=== PATIENT | male | born 1960 | race Caucasian/White ===

== ENCOUNTER 2017-05-21 19:48 | Observation (INO) | payer MEDICARE, BC, SELFPAY | END 2017-05-23 16:20 | disposition home or self-care (01) | PROVIDERS: Admitting Provider Family Medicine; Emergency Provider Emergency Medicine; Family Provider Nurse Practitioner Family; Visit Provider Emergency Medicine | DX: I25.110 Atherosclerotic heart disease of native coronary artery with unstable angina pectoris (principal); Z72.0 Tobacco use; Z95.5 Presence of coronary angioplasty implant and graft; E11.9 Type 2 diabetes mellitus without complications; Z79.4 Long term (current) use of insulin; I69.398 Other sequelae of cerebral infarction | CPT/HCPCS: 36415; 71010; 80053; 82962; 83880; 84484; 85025; 92928; 93005; 93041; 93458; 94760; 96374; 99152; 99285; C1725; C1769; C1876; G0378; J1644; Q9967 ==

== ENCOUNTER 2017-05-24 10:06 | Emergency (ER) | payer MEDICARE, BC, SELFPAY | END 2017-05-24 13:39 | disposition home or self-care (01) | PROVIDERS: Emergency Provider Emergency Medicine; Family Provider Emergency Medicine; Visit Provider Emergency Medicine | DX: I20.8 Other forms of angina pectoris (principal); I10 Essential (primary) hypertension; Z86.79 Personal history of other diseases of the circulatory system; E11.9 Type 2 diabetes mellitus without complications; Z79.4 Long term (current) use of insulin; Z79.82 Long term (current) use of aspirin; Z79.51 Long term (current) use of inhaled steroids; Z79.899 Other long term (current) drug therapy | CPT/HCPCS: 36415; 71020; 80053; 82550; 82553; 84484; 85025; 93005; 99284 ==

== ENCOUNTER 2017-06-18 08:10 | Observation (INO) | payer MEDICARE, BC, MEDICAID, SELFPAY ==
[2017-06-18] VITALS (21 sets, daily range): BP systolic 93–144; BP diastolic 50–80; PULSE 53–82; RESP 16–18; TEMP 36.4–36.8; O2SAT 93–99; BMI 32.3; BMI 33.6
--- NOTE | 2017-06-18 | IR_ITS ---
CARDIAC CATHETERIZATION DATE OF CATHETERIZATION:06/18/2017 3:50 PM PROCEDURES: 1. Left heart catheterization 2. Left ventriculogram 3. Selective coronary angiogram INDICATION FOR TEST: 1. Known coronary artery disease 2. Recent multivessel stenting 3. Unstable angina Informed consent was obtained prior to the procedure. COMPLICATIONS: None ESTIMATED BLOOD LOSS: Less than 10 ml. TECHNIQUE: One percent lidocaine used to anesthetize the right anterior aspect of the wrist. The right radial artery was accessed via the Seldinger technique. A 6 [place] sheath was placed in the right radial artery. 2.5 mg of verapamil, 800 mcg of nitroglycerin and 5000 U Heparin were given through the arterial sheath. The trap catheter, a JL 3 and ultimately and AL 0.75 guide catheter were also used to perform left heart catheterization left ventriculogram and selective coronary angiogram. At the end of the procedure the patient was transferred to the post-op holding area in stable condition for arterial sheath removal. ANGIOGRAPHIC RESULTS: 1. The left main artery normal 2. The left anterior descending artery has proximal 30% stenoses with additional 40% stenosis proximal to the mid LAD stent. The mid LAD stent has 40-50% in-stent restenosis. Distal to the stent the vessel is 2.25 mm in diameter and has a 60-70% stenosis followed by additional 70-80 and even 90% stenoses as the LAD wraps the apex. The entire LAD system is less than 2 mm distal to the mid 60-70% stenosis 3. The circumflex artery is a dominant vessel and is normal proximally and at mid vessel. The large first obtuse marginal artery has 40% proximal stenoses while the second obtuse marginal artery has 30% stenoses 4. The right coronary artery is a nondominant vessel and has proximal 30% stenoses with mid vessel 20% stenoses and distal stents which are all widely patent with excellent distal and proximal transitioning and no significant angiographic in-stent restenosis 5. The MOTA ventriculogram reveals slightly hyperdynamic at 75% 6. The left ventricular end-diastolic pressure moderately elevated at 20 mmHg IMPRESSION: 1. Moderate to severe disease in the mid and distal LAD 2. Mild nonflow limiting disease in the dominant circumflex artery 3. Mild nonflow limiting disease in the right coronary artery 4. Slightly hyperdynamic ejection fraction 5. Moderately elevated LVEDP consistent with diastolic dysfunction PLAN: 1. I strongly in current medical management. Nothing good will happen with revascularizing the mid and distal LAD. This vessel is small and caliber and has severe stenoses distally. Trying to revascularize this vessel would likely cause distal tearing and dissection of the vessel with poor runoff and could alternately sacrificed the entire LAD system. 2. Patient would benefit from negative inotropes such as verapamil or diltiazem 3. Diuretics would also benefit patient by decreasing EDP which would improve endothelial microvascular blood flow and would ultimately decrease angina 4. Maximize antianginal medications with Ranexa and isosorbide mononitrate combined with beta blockers
--- NOTE | 2017-06-18 08:19 | XR_ITS ---
XR chest portable HISTORY: ITS.REASON: chest pain ORDERING PHYSICIAN: Allison Herrera MD PATIENT AGE: 57 years COMPARISON: 05/24/2017 FINDINGS: The cardiomediastinal silhouette and pulmonary vascularity are within normal limits. The lungs are clear without infiltrates, suspicious nodules, or pleural effusions. No acute bony abnormalities. IMPRESSION: Negative chest, no acute finding
--- NOTE | 2017-06-18 08:37 | HMH.EDGENADL ---
ED Disposition Clinical Impression: Chest pain, CAD (coronary artery disease), Diabetes, Non compliance with medical treatment Disposition: Still a Patient Condition on Discharge: Fair Referrals: Junior Alas MD [Primary Care Provider] - - Critical Care Critical Care Time: No Attestation: On 06/18/17, the high probability of a clinically significant, sudden or life threatening deterioration of the following system(s) required my full and direct attention, intervention and personal management. The time I documented below is in addition to time spent performing reported procedures but includes the following listed in this critical care notation. Medical Decision Making - Medical Records Medical records reviewed: Yes: I reviewed the patient's medical records. Vital Signs: 06/18/17 08:11 Temperature 98.2 F Temperature Source Oral Pulse Rate [Right Brachial] 76 Respiratory Rate 16 Blood Pressure [Right Arm] 142/78 Blood Pressure Mean [Right Arm] 99 Blood Pressure Source [Right Arm] Automatic Cuff Blood Pressure Position [Right Arm] Supine 02 Sat by Pulse Oximetry 97 Oxygen Delivery Method Room Air - Lab Data Lab Results 06/18/17 08:20: WBC 7.8, RBC 4.50 L, Hgb 12.9 L, Hct 38.6 L, MCV 85.9, MCH 28.8, MCHC 33.5, RDW 15.1, Plt Count 150, MPV 9.6, Neut % (Auto) 62.1, Lymph % (Auto) 28.1, [place] % (Auto) 7.9, Eos % (Auto) 1.5, Baso % (Auto) 0.3, Neut # (Auto) 4.8, Lymph # (Auto) 2.2, [place] # (Auto) 0.6, Eos # (Auto) 0.1, Baso # (Auto) 0.0 06/18/17 08:20: Sodium 135 L, Potassium 4.0, Chloride 101, Carbon Dioxide 24, Anion Gap 14.0, BUN 14, Creatinine 0.94, Estimated Creat Clear 122, Estimated GFR 82, Est GFR ( Amer) 99, Glucose 113 H, Calcium 8.7, Total Bilirubin 1.2 H, AST 30, ALT 31, Alkaline Phosphatase 74, Total Creatine Kinase 115, CK-MB (CK-2) 1.5, CK-MB (CK-2) Rel Index 1.3, Troponin I < 0.02, Total Protein 7.7, Albumin 3.5, Globulin 4.2 H, Albumin/Globulin Ratio 0.8 L Result diagrams: 06/18/17 08:20 06/18/17 08:20 Orders (Tests/Meds): ED MEDICATIONS Discontinued Medications Generic Name Dose Route Start Last Admin Trade Name Dianna PRN Reason Stop Dose Admin Sodium Chloride 1,000 mls @ 999 mls/hr 06/18/17 08:30 06/18/17 08:30 Sod Chloride 0.9% 1000ml Bag IV 06/18/17 09:30 999 mls/hr .Q1H1M MED Administration Nitroglycerin 0.5 gm 06/18/17 08:28 06/18/17 08:30 Nitroglycerin 1 Inch Oint Udp TD 06/18/17 08:29 0.5 gm ONCE ONE Administration ORDERS Category Date Time Status Chest XR -- portable [XR chest portable] Stat Exams 06/18/17 08:19 Taken B-Type Natriuretic Peptide Stat Lab 06/18/17 09:27 Ordered D-Dimer Stat Lab 06/18/17 09:27 Ordered - ECG Data Tracing #1 Normal sinus rhythm 68/min no acute findings. ECG initial impression date: 06/18/17 - Russell Inquiry Pt receiving controlled substance: No Russell was queried for this patient: No Medical Decision Making Narrative: I called Dr Alonso who sent his PA for evalution. Physician Practice Administrator will repat labs in 3 hours form the initial one. I called Dr Garland who accepted the patient for admission. General Adult HPI - General Chief complaint: PAIN Stated complaint: chest pain Mode of Arrival: EMS Limitations: No Limitations Description of Symptoms (Recalled from ER Triage Doc. by RN): chest pain - History of Present Illness HPI narrative: 57 years old white male resident of [facility], he is a poor historian. He is diabetic with coronary artery disease with most recent intervention 2-3 weeks ago. The patient's reports chest pain on the left side sharp/burning rated as 10 with no radiation, there is no precipitating factor. He did not take his medication this morning. He was brought by EMS in a hemodynamically stable condition. Onset (ago): minute(s) (20 minutes.) Severity scale (1-10): 10 Quality: burning, sharp Consistency: constant Relieving factors:
--- NOTE | 2017-06-18 08:40 | ED_ITS ---
ED Disposition Clinical Impression: Chest pain, CAD (coronary artery disease), Diabetes, Non compliance with medical treatment Disposition: Still a Patient Condition on Discharge: Fair Referrals: Junior Alas MD [Primary Care Provider] - - Critical Care Critical Care Time: No Attestation: On 06/18/17, the high probability of a clinically significant, sudden or life threatening deterioration of the following system(s) required my full and direct attention, intervention and personal management. The time I documented below is in addition to time spent performing reported procedures but includes the following listed in this critical care notation. Medical Decision Making - Medical Records Medical records reviewed: Yes: I reviewed the patient's medical records. Vital Signs: 06/18/17 08:11 Temperature 98.2 F Temperature Source Oral Pulse Rate [Right Brachial] 76 Respiratory Rate 16 Blood Pressure [Right Arm] 142/78 Blood Pressure Mean [Right Arm] 99 Blood Pressure Source [Right Arm] Automatic Cuff Blood Pressure Position [Right Arm] Supine 02 Sat by Pulse Oximetry 97 Oxygen Delivery Method Room Air - Lab Data Lab Results 06/18/17 08:20: WBC 7.8, RBC 4.50 L, Hgb 12.9 L, Hct 38.6 L, MCV 85.9, MCH 28.8 , MCHC 33.5, RDW 15.1, Plt Count 150, MPV 9.6, Neut % (Auto) 62.1, Lymph % (Auto ) 28.1, [place] % (Auto) 7.9, Eos % (Auto) 1.5, Baso % (Auto) 0.3, Neut # (Auto) 4.8, Lymph # (Auto) 2.2, [place] # (Auto) 0.6, Eos # (Auto) 0.1, Baso # (Auto) 0.0 06/18/17 08:20: Sodium 135 L, Potassium 4.0, Chloride 101, Carbon Dioxide 24, Anion Gap 14.0, BUN 14, Creatinine 0.94, Estimated Creat Clear 122, Estimated GFR 82, Est GFR ( Amer) 99, Glucose 113 H, Calcium 8.7, Total Bilirubin 1.2 H, AST 30, ALT 31, Alkaline Phosphatase 74, Total Creatine Kinase 115, CK- MB (CK-2) 1.5, CK-MB (CK-2) Rel Index 1.3, Troponin I < 0.02, Total Protein 7.7 , Albumin 3.5, Globulin 4.2 H, Albumin/Globulin Ratio 0.8 L Result diagrams: 06/18/17 08:20 06/18/17 08:20 Orders (Tests/Meds): ED MEDICATIONS Discontinued Medications Generic Name Dose Route Start Last Admin Trade Name Roddyq PRN Reason Stop Dose Admin Sodium Chloride 1,000 mls @ 999 mls/hr 06/18/17 08:30 06/18/17 08:30 Sod Chloride 0.9% 1000ml Bag IV 06/18/17 09:30 999 mls/hr .Q1H1M MED Administration Nitroglycerin 0.5 gm 06/18/17 08:28 06/18/17 08:30 Nitroglycerin 1 Inch Oint Udp TD 06/18/17 08:29 0.5 gm ONCE ONE Administration ORDERS Category Date Time Status Chest XR -- portable [XR chest portable] Stat Exams 06/18/17 08:19 Taken B-Type Natriuretic Peptide Stat Lab 06/18/17 09:27 Ordered D-Dimer Stat Lab 06/18/17 09:27 Ordered - ECG Data Tracing #1 Normal sinus rhythm 68/min no acute findings. ECG initial impression date: 06/18/17 - Russell Inquiry Pt receiving controlled substance: No Russell was queried for this patient: No Medical Decision Making Narrative: I called Dr Alonso who sent his PA for evalution. [employer] will repat labs in 3 hours form the initial one. I called Dr Garland who accepted the patient for admission. General Adult HPI - General Chief complaint: PAIN Stated complaint: chest pain Mode of Arrival: EMS Limitations: No Limitations Description of Symptom
[2017-06-18 08:55] LABS: Basophils % 0.3 % (0.1-2.0); Eosinophils # 0.1 K/mm3 (0.0-0.4); Eosinophils % 1.5 % (0.1-12.0); Hematocrit 38.6 % (42.0-52.0); Hemoglobin 12.9 g/dL (14.1-18.0); Lymphocytes # 2.2 K/mm3 (0.7-4.5); Lymphocytes % 28.1 K/mm3 (10-50); Mean Corpuscular HGB Conc 33.5 g/dL (31.8-35.4); Mean Corpuscular Hemoglobin 28.8 pg (27.0-31.2); Mean Corpuscular Volume 85.9 fl (80-94); Mean Platelet Volume 9.6 fl (7.4-10.4); Monocytes # 0.6 K/mm3 (0.1-1.0); Monocytes % 7.9 % (1.7-9.3); Neutrophils # 4.8 K/mm3 (1.8-7.8); Neutrophils % 62.1 % (37.0-80.0); Platelet Count 150 K/mm3 (142-424); Red Cell Distribution Width 15.1 % (11.5-17.5); White Blood Count 7.8 K/mm3 (4.8-10.8)
[2017-06-18 09:18] LABS: Alanine Aminotransferase 31 U/L (12-78); Albumin Level 3.5 gm/dL (3.4-5.0); Albumin/Globulin Ratio 0.8 (1.1-1.8); Alkaline Phosphatase 74 U/L (46-116); Aspartate Amino Transferase 30 U/L (15-37); Bilirubin,Total 1.2 mg/dL (0.2-1.0); Blood Urea Nitrogen 14 mg/dL (7-18); CKMB Relative Index 1.3 U/L (0-4.0); Calcium 8.7 mg/dL (8.5-10.1); Carbon Dioxide 24 mmol/L (21.0-32.0); Chloride 101 mmol/L (98-107); Creatine Kinase 115 U/L (39-308); Creatine Kinase MB 1.5 mg/ml (0.0-3.6); Creatinine Clearance Estimated 122 mL/min (0-300); Creatinine,Serum 0.94 mg/dL (0.70-1.30); Estimated Glomerular Filt Rate 82 ml/min (>60); GFR (African American) 99 ML/MIN (>60); Globulin 4.2 gm/dl (1.3-3.2); Glucose 113 mg/dL (74-106); Sodium 135 mmol/L (136-145); Total Protein,Serum 7.7 gm/dL (6.4-8.2); Troponin I < 0.02 ng/ml (0.00-0.06)
[2017-06-18 10:14] LABS: D-Dimer 262 (0-400)
--- NOTE | 2017-06-18 10:15 | HMH.CARDCON2 ---
History of Present Illness Consult date: 06/18/17 Requesting physician: Junior Alas Consult reason: chest pain Chief complaint: chest pain History of present illness: 57-year-old white male seen in the emergency department for recurrent episodes of chest pain initially with activity and now at rest. Vision is a very poor historian and provides little information regarding medications and medical history. He is a diabetic. Patient recently underwent cardiac catheterization in April for which multiple stents were placed in his circumflex and RCA arteries residual LAD disease for which medical therapy recommended due to the size of the vessel and complexity of the disease. Patient continues to complain of chest pain despite beta-drea therapy, dual antiplatelet therapy, Ranexa therapy, Imdur and Norvasc medications. Initial troponin in the emergency department is normal with EKG showing no acute ST segment changes. Cardiology consulted for evaluation recommendation. Review of Systems - Constitutional Reports lack of energy - *Cardiovascular Reports chest pain, Reports chest pain at rest, Reports chest pain with activity - *Respiratory Reports shortness of breath with activity [facility] History Medical History: Reports:: Coronary Artery Disease, Cerebrovascular Accident, Diabetes Mellitus Type 2, Hyperlipidemia, Hypertension, Myocardial Infarction, Seizures Other Surgeries: Yes: Other (LHC-stents) Amputation: Yes (Left toe) - *Social History Educational Level: Completed High School Smoking Status: Unknown if ever smoked Alcohol Intake: never Alcohol Intake Frequency:: other - Psychiatric History Expresses thoughts of harming self/others: None Suicide Plan Description: No Plan *Family Hx:: Unable to obtain Meds Home Medications Medication Instructions Recorded Confirmed Type amitriptyline 10 mg tablet 10 mg PO ONCE 05/28/17 06/18/17 History aspirin 81 mg tablet,delayed 81 mg PO QDAY 05/28/17 06/18/17 History release atorvastatin 80 mg tablet 80 mg PO QDAY 05/28/17 06/18/17 History carvedilol 3.125 mg tablet 3.125 mg PO BID 05/28/17 06/18/17 History citalopram 20 mg tablet 20 mg PO QDAY 05/28/17 06/18/17 History diclofenac sodium 75 mg 75 mg PO BID PRN 05/28/17 06/18/17 History tablet,delayed release insulin aspar prt-insulin aspart 40 unit SUB-Q BID ml 05/28/17 06/18/17 History 100 unit/mL (70-30) subcutaneous soln nitroglycerin 0.4 mg sublingual 0.4 mg SUBLINGUAL Q5M PRN 05/28/17 06/18/17 History tablet omega-3 fatty acids 1,000 mg 1,000 mg PO BID cap 05/28/17 06/18/17 History capsule ticagrelor 90 mg tablet 90 mg PO BID 05/28/17 06/18/17 History ranolazine ER 1,000 mg 1,000 mg PO BID tab 06/17/17 06/18/17 History tablet,extended release,12 hr Amlodipine Besylate [Norvasc 5mg 5 mg PO QDAY 06/18/17 06/18/17 History tablet] Lisinopril [Lisinopril 40mg Tablet] 40 mg PO QDAY 06/18/17 06/18/17 History Allergies Allergy/AdvReac Type Severity Reaction Status Date / Time morphine [MORPHINE] Allergy Severe I-ITCHING Verified 06/18/17 08:47 Influenza Virus Vaccines Allergy Intermediate I-HIVES Verified 06/18/17 08:47 Exam Vital signs and Labs for Last 24 Hours: Temp Pulse Resp BP Pulse Ox 98.2 F 76 16 142/78 97 06/18/17 08:11 06/18/17 08:11 06/18/17 08:11 06/18/17 08:11 06/18/17 08:11 - *Routine Neck Exam Absent: JVD, carotid bruit - *Routine Respiratory Exam Present: CTA bilaterally - *Routine Cardiovascular Exam Present: RRR. Absent: murmur, gallop - *Routine Extremities Exam Absent: edema - *Routine Neurological Exam Present: alert, moving all extremities Results 06/18/17 08:20 06/19/17 06:10 EKG interpretations - EKG EKG results cardiology: sinus rhythm, no acute changes Assessment and Plan (1) Chest pain Current visit: Yes Status: Acute Category: Medical Code(s): R07.9 - Chest pain, unspecified (2) CAD
--- NOTE | 2017-06-18 10:19 | P.CONS_ITS ---
History of Present Illness Consult date: 06/18/17 Requesting physician: Junior Alas Consult reason: chest pain Chief complaint: chest pain History of present illness: 57-year-old white male seen in the emergency department for recurrent episodes of chest pain initially with activity and now at rest. Vision is a very poor historian and provides little information regarding medications and medical history. He is a diabetic. Patient recently underwent cardiac catheterization in April for which multiple stents were placed in his circumflex and RCA arteries residual LAD disease for which medical therapy recommended due to the size of the vessel and complexity of the disease. Patient continues to complain of chest pain despite beta-drea therapy, dual antiplatelet therapy, Ranexa therapy, Imdur and Norvasc medications. Initial troponin in the emergency department is normal with EKG showing no acute ST segment changes. Cardiology consulted for evaluation recommendation. Review of Systems - Constitutional Reports lack of energy - *Cardiovascular Reports chest pain, Reports chest pain at rest, Reports chest pain with activity - *Respiratory Reports shortness of breath with activity [facility] History Medical History: Reports:: Coronary Artery Disease, Cerebrovascular Accident, Diabetes Mellitus Type 2, Hyperlipidemia, Hypertension, Myocardial Infarction, Seizures Other Surgeries: Yes: Other (LHC-stents) Amputation: Yes (Left toe) - *Social History Educational Level: Completed High School Smoking Status: Unknown if ever smoked Alcohol Intake: never Alcohol Intake Frequency:: other - Psychiatric History Expresses thoughts of harming self/others: None Suicide Plan Description: No Plan *Family Hx:: Unable to obtain Meds Home Medications Medication Instructions Recorded Confirmed Type amitriptyline 10 mg tablet 10 mg PO ONCE 05/28/17 06/18/17 History aspirin 81 mg tablet,delayed 81 mg PO QDAY 05/28/17 06/18/17 History release atorvastatin 80 mg tablet 80 mg PO QDAY 05/28/17 06/18/17 History carvedilol 3.125 mg tablet 3.125 mg PO BID 05/28/17 06/18/17 History citalopram 20 mg tablet 20 mg PO QDAY 05/28/17 06/18/17 History diclofenac sodium 75 mg 75 mg PO BID PRN 05/28/17 06/18/17 History tablet,delayed release insulin aspar prt-insulin aspart 40 unit SUB-Q BID ml 05/28/17 06/18/17 History 100 unit/mL (70-30) subcutaneous soln nitroglycerin 0.4 mg sublingual 0.4 mg SUBLINGUAL Q5M PRN 05/28/17 06/18/17 History tablet omega-3 fatty acids 1,000 mg 1,000 mg PO BID cap 05/28/17 06/18/17 History capsule ticagrelor 90 mg tablet 90 mg PO BID 05/28/17 06/18/17 History ranolazine ER 1,000 mg 1,000 mg PO BID tab 06/17/17 06/18/17 History tablet,extended release,12 hr Amlodipine Besylate [Norvasc 5mg 5 mg PO QDAY 06/18/17 06/18/17 History tablet] Lisinopril [Lisinopril 40mg Tablet] 40 mg PO QDAY 06/18/17 06/18/17 History Allergies Allergy/AdvReac Type Severity Reaction Status Date / Time morphine [MORPHINE] Allergy Severe I-ITCHING Verified 06/18/17 08:47 Influenza Virus Vaccines Allergy Intermediate I-HIVES Verified 06/18/17 08:47 Exam Vital signs and Labs for Last 24 Hours: Temp Pulse Resp BP Pulse Ox 98.2 F 76 16 142/78 97 06/18/17 08:11 06/18/17 08:11 06/18/17 08:11 06/18/17 08:11 06/18/17 08:11
--- NOTE | 2017-06-18 11:13 | SW/DCPLANNER ---
I have notified Kishan from [facility] to let her know this patient will be having a heart cath this afternoon. I will follow up with Kishan once results from cath are available.
--- NOTE | 2017-06-18 14:19 | PC.NURSE ---
ASHLEIGH Moulton notified of patient's complaint of chest pain at a 10 out of 10. Acknowledged notification.
--- NOTE | 2017-06-18 16:44 | PC.NURSE ---
patient off floor for heart cath at this time.
[2017-06-19] VITALS (7 sets, daily range): BP systolic 124–141; BP diastolic 68–75; PULSE 49–70; RESP 18; TEMP 36.1–36.6; O2SAT 95–100
--- NOTE | 2017-06-19 04:42 | PC.NURSE ---
PT TRACELET REMOVED ON EVENING SHIFT WITHOUT COMPLICATIONS. DRSG APPLIED. PT ATE WELL. NO DIFFICULTIES IN VOIDING. NO COMPLAINTS OF PAIN. SINUS MARLENI-SINUS RHYTHM WITH OCCASSIONAL SINUS PAUSE N0TED. PT CURRENTLY SLEEPING.
[2017-06-19 06:55] LABS: Anion Gap 15.3 mEq/L (5-15); Blood Urea Nitrogen 12 mg/dL (7-18); Carbon Dioxide 27 mmol/L (21.0-32.0); Chloride 100 mmol/L (98-107); Creatinine Clearance Estimated 114 mL/min (0-300); Creatinine,Serum 0.93 mg/dL (0.70-1.30); Estimated Glomerular Filt Rate 83 ml/min (>60); GFR (African American) 101 ML/MIN (>60); Glucose 97 mg/dL (74-106); Potassium 4.3 mmoL/L (3.5-5.1); Sodium 138 mmol/L (136-145)
--- NOTE | 2017-06-19 07:09 | P.CONPHA_ITS ---
[facility] Pharmacy VTE Monitoring - Patient Demographics Admission date: 06/18/17 Report Date: 06/19/17 Time: 07:09 Allergies/Adverse Reactions: Patient Allergies morphine [MORPHINE] Allergy (Severe, Verified 06/18/17 08:47) I-ITCHING Influenza Virus Vaccines Allergy (Intermediate, Verified 06/18/17 08:47) I-HIVES Height: 1.68 m Weight: 94.517 kg Patient Problems: Current Active Problems Chest pain (Acute) Non compliance with medical treatment (Acute) Diabetes (Chronic) CAD (coronary artery disease) (Chronic) - VTE Risk Labs: VTE Related Lab Results Hgb 12.9 g/dL (14.1-18.0) L 06/18/17 08:20 Hct 38.6 % (42.0-52.0) L 06/18/17 08:20 Plt Count 150 K/mm3 (142-424) 06/18/17 08:20 BUN 12 mg/dL (7-18) 06/19/17 06:10 Creatinine 0.93 mg/dL (0.70-1.30) 06/19/17 06:10 Estimated Creat Clear 114 mL/min (0-300) 06/19/17 06:10 Was VTE Risk Assessment Performed: Yes VTE Score: 3 VTE Risk Level: Low Risk - Prophylaxis VTE Prophylaxis Ordered?: Yes Types of VTE Prophylaxis: TEDS Knee High Location of Applied Device: Bilateral Lower Extremeties - VTE Diagnosis Confirmed Treatment or plan recommended: Continue Current Treatment
--- NOTE | 2017-06-19 09:06 | HMH.CARDPN2 ---
Subjective PN (PG) Date: 06/19/17 Time: 09:06 Interval history: 57-year-old white male in bed eating breakfast in no acute distress. No further chest pain since admission. PN Exam ([facility]) Vital signs: Temp Pulse Resp BP Pulse Ox 97.0 F L 62 18 137/72 100 06/19/17 08:10 06/19/17 08:10 06/19/17 08:10 06/19/17 08:10 06/19/17 08:10 - Constitutional no acute distress - Routine Respiratory Exam Present: CTA bilaterally - Routine Cardiovascular Exam Present: RRR - Routine Neurological Exam Present: alert, oriented X3, moving all extremities A/P Progress Note ([facility]) (1) Chest pain Status: Acute Assessment and plan: Angina pectoris related to LAD stenosis that is not felt to be amenable to interventional therapy without significant risk of jeopardizing the entire LAD system. Recommend continued medical therapy. Recommended home medications include aspirin 81 mg daily, Brilinta 90 mg twice daily, Coreg 6.25 mg twice daily, Cardizem LA 120 mg daily, Imdur 30 mg daily, Ranexa thousand milligrams twice daily, hydrochlorothiazide 25 mg daily and continue lisinopril but may need to be reduced to allow the addition of the Cardizem and increased carvedilol and hydrochlorothiazide therapies. Follow-up in our office in 1 week. Current Visit: Yes (2) CAD (coronary artery disease) Status: Chronic Current Visit: Yes (3) Diabetes Status: Chronic Current Visit: Yes (4) HHD (hypertensive heart disease) Status: Chronic Current Visit: No (5) HLD (hyperlipidemia) Status: Chronic Current Visit: No
--- NOTE | 2017-06-19 10:15 | HMH.PTEV ---
Physical Therapy Evaluation Rehab PT IP Evaluation Start: 06/19/17 08:49 Freq: ONCE Status: Active Protocol: Document 06/19/17 10:11 SATNAM (Rec: 06/19/17 10:15 PHORLUIS [id number]) Subjective/History History History 57 yom adm to [facility] with weakness, now s/p heart cath. Subjective Subjective Pt with no c/o this am. Rehab PT IP Eval Objective Appearance Patient Behavior Appropriate Cooperative Patient Orientation Person Place Time Difficulty following instructions none Speech Pattern Clear Appropriate Ambulation Patient Able to Ambulate Yes Ambulation Observation IP General Gait Pattern Observation No Deviations/Normal Ambulation Distance (feet) 300 Ambulation Assistive Device None Balance Ability to Arise Able, w/o using arms Sitting Balance Steady, safe Standing Balance Narrow stance w/o support Dynamic Sitting Balance Ability Normal Dynamic Standing Balance Ability Good Transfers Bed Transfer Ability Independent Chair Transfer Ability Independent Sit to Stand Bed Transfer Ability Independent Sit to Stand Chair Transfer Ability Independent ROM All Extremities PT ROM Status WFL MMT All Extremities PT MMT WFL Rehab PT IP prob,goals,plan Problems Date of Evaluation: 06/19/17 Rehab Potential Rehab Potential Good Equipment Needs Assistive Devices None / NA Discharge Plan PT Discharge Plan Pt is appropriate to return to prior living facility. G -code Required Yes Eval Complexity Eval Charge Codes 19535 - Moderate Complexity G Codes PT Current Status Mobility PT Current Status Modifier CI-At least 1% but less than 20% impaired, limited or restricted PT Goal Status Mobility PT Goal Status Modifer CI-At least 1% but less than 20% impaired, limited or restricted PHYSICIAN CERTIFICATION: I certify the specified therapy services for Mayo Jain are required, authorized, and reviewed every 30 days.
--- NOTE | 2017-06-19 10:56 | PC.NURSE ---
PT IS RESTING IN BED, TOLERATED AMBULATING IN THE GREEN WITH PHYSICAL THERAPY, LUNGS SOUNDS CLEAR, BOWEL SOUNDS NORMAL, PT STATES HE FEELS LIKE HE CAN GO BACK TO [facility]. EATING WELL, VSS, PT DID NOT GET HIS COREG THIS MORNING B/C HIS HR WAS ONLY 57. ALERT AND ORIENTED X3. WILL CONTINUE TO MONITOR.
--- NOTE | 2017-06-19 12:07 | HMH.HPDC ---
General - General Admission date: 06/18/17 Discharge date: 06/19/17 *Admission Date: 06/18/17 *Chief complaint: chest pain *History of present illness: 57-year-old white male seen in the emergency department for recurrent episodes of chest pain initially with activity and now at rest. Vision is a very poor historian and provides little information regarding medications and medical history. He is a diabetic. Patient recently underwent cardiac catheterization in April for which multiple stents were placed in his circumflex and RCA arteries residual LAD disease for which medical therapy recommended due to the size of the vessel and complexity of the disease. Patient continues to complain of chest pain despite beta-drea therapy, dual antiplatelet therapy, Ranexa therapy, Imdur and Norvasc medications. Initial troponin in the emergency department is normal with EKG showing no acute ST segment changes. Cardiology consulted for evaluation recommendation. [facility] History I have reviewed the patient's past medical history: Yes Medical History: Reports:: Coronary Artery Disease, Cerebrovascular Accident, Diabetes Mellitus Type 2, Hyperlipidemia, Hypertension, Myocardial Infarction, Seizures Denies:: Cancer, Diabetes Mellitus Type 1, MRSA Other Surgeries: Yes: Other (LHC-stents) Amputation: Yes (Left toe) Fractures: No - *Social History Educational Level: Completed High School Smoking Status: Unknown if ever smoked Alcohol Intake: never Alcohol Intake Frequency:: other Occupational Status: disabled Housing: assisted living facility Household Members: other - Psychiatric History Expresses thoughts of harming self/others: None Suicide Plan Description: No Plan *Family Hx:: Unable to obtain Review of Systems - Review of Systems Review of systems:: pertinent systems reviewed and negative unless documented below - Constitutional Denies fatigue - Eyes Denies change in vision - ENT Denies throat swelling - *Cardiovascular Reports chest pain at rest, Denies fast heart rate - *Respiratory Denies shortness of breath - *Gastrointestinal Denies abdominal pain - *Genitourinary Denies blood in urine - *Musculoskeletal Reports joint pain, Denies joint swelling - Integumentary/Breasts Denies rash - *Neurologic Denies tingling/numbness/burning sensations - Psychiatric Reports anxiety Exam Vital signs and Labs for Last 24 Hours: Temp Pulse Resp BP Pulse Ox 97.0 F L 62 18 137/72 100 06/19/17 08:10 06/19/17 08:10 06/19/17 08:10 06/19/17 08:10 06/19/17 08:10 Laboratory Results - last 24 hr 06/19/17 06:10: Sodium 138, Potassium 4.3, Chloride 100, Carbon Dioxide 27, Anion Gap 15.3 H, BUN 12, Creatinine 0.93, Estimated Creat Clear 114, Estimated GFR 83, Est GFR ( Amer) 101, Glucose 97 I & O for Last 24 hours: Intake & Output 06/17/17 06/18/17 06/19/17 06/20/17 11:59 11:59 11:59 11:59 Intake Total 1200 / 1200 Output Total 2300 / 2300 Balance -1100 / -1100 Weight 74 lb 1.205 oz 208 lb 6 oz - Constitutional no acute distress - *Routine HEENT Exam Head: Present: normocephalic Eye: Present: EOMI, PERRL ENT: Present: mucous membranes dry - *Routine Neck Exam Present: supple. Absent: JVD - *Routine Respiratory Exam Absent: respiratory distress - *Routine Cardiovascular Exam Present: RRR, murmur - *Routine Abdominal Exam Present: soft - *Routine Extremities Exam Absent: calf tenderness - *Routine Skin Exam Present: intact - *Routine Neurological Exam Present: alert, oriented X3, CN II-XII intact - Routine Psychiatric Exam Present: normal affect Hospital Course Hospital Course: Angina pectoris related to LAD stenosis that is not felt to be amenable to interventional therapy without significant risk of jeopardizing the entire LAD system. Recommend continued medical therapy. Recommended home medications include aspirin 81 mg daily, Brilinta
--- NOTE | 2017-06-19 12:30 | SW/DCPLANNER ---
I have placed a phone call to Kishan and left a voice message regarding this patient. I have also faxed updated information to Rogelio Rueda regarding medication changes for this patient.
--- NOTE | 2017-06-21 12:39 | PC.NURSE ---
post op follow up call completed at this time, pt denies any questions or concerns, site healing well, has follow up on Saturday with dr batista.
== END 2017-06-19 15:41 | disposition home or self-care (01) ==
LOC: ER 10:00 → 2ND 10:06
PROVIDERS: Internal Medicine; Admitting Provider Emergency Medicine; Emergency Provider Emergency Medicine; Family Provider Emergency Medicine; PCP Emergency Medicine; Visit Provider Emergency Medicine
DX: E11.9 Type 2 diabetes mellitus without complications; I11.9 Hypertensive heart disease without heart failure; Z95.5 Presence of coronary angioplasty implant and graft; I25.110 Atherosclerotic heart disease of native coronary artery with unstable angina pectoris; Z91.19 Patient's noncompliance with other medical treatment and regimen; Z86.73 Personal history of transient ischemic attack (TIA), and cerebral infarction without residual deficits
CPT/HCPCS: 36415; 71045; 80048; 80053; 82550; 82553; 83880; 84484; 85025; 85378; 93005; 93041; 93458; 97162; 99152; 99153; 99284; C1725; C1760; C1769; G0378; J1644; Q9967

== ENCOUNTER 2017-07-22 19:46 | Emergency (ER) | payer MEDICARE, BC, SELFPAY ==
[2017-07-22 19:48] VITALS: BP 129/71; PULSE 68; RESP 12; TEMP 36.6; O2SAT 100; BMI 34.0
[2017-07-22 20:48] LABS: Microscopic, Urine URINE MICROSCOPIC (MICROSCOPIC)
[2017-07-22 20:49] LABS: Appearance,Urine CLEAR (Clear); Bilirubin,Urine Negative (Negative); Blood, Urine 1+ (Negative); Color,Urine YELLOW (Yellow); Glucose,Urine (UA) Negative (Negative); Ketones,Urine Negative (Negative); Leukocyte Esterase,Urine Negative (Negative); Nitrate,Urine Negative (Negative); PH,Urine 6.5 (5.0-8.5); Protein,Urine Negative (Negative); Specific Gravity, Urine 1.015 (1.005-1.030)
--- NOTE | 2017-07-22 20:49 | CT_ITS ---
CT abdomen pelvis wo con CLINICAL INDICATION: Abdominal pain, right flank pain ITS.REASON: RIGHT LOW BACK PAIN ORDERING PHYSICIAN: Junior Alas MD PATIENT AGE: 57 years COMPARISON: None TECHNIQUE: Axial images obtained with sagittal and coronal reformats. PROCEDURE: Oral Contrast: None IV Contrast: None . FINDINGS: No acute finding in the lung bases. Coronary artery calcification and/or stents are present. The liver, gallbladder, spleen, adrenal glands, pancreas, and kidneys have an unremarkable unenhanced CT appearance. Stomach is mildly distended with retained food/secretions. There is a moderate amount retained colonic feces throughout the colon with a moderate amount stool in the rectum. The rectum measures 7 cm in maximum diameter. Doherty catheter is present in urinary bladder which is decompressed. Bowel gas pattern is nonspecific. Unremarkable appendix. No evidence of diverticulitis. Scattered small lymph nodes are present throughout the mesentery's. There are at least 3 partially calcified densities within the peritoneum 2 of which are deep to the left side of the umbilicus and one in the left iliac region and may be due to partially calcified lymph nodes. There are degenerative changes in the lumbar spine with no acute bony anomalies. IMPRESSION: 1. No acute finding. 2. Constipation with mild rectal fecal and fraction with 3. Coronary artery disease
--- NOTE | 2017-07-22 21:07 | HMH.EDGENADL ---
ED Disposition Clinical Impression: Flank pain, acute Disposition: Home, Self-Care Condition on Discharge: Good Instructions: DI for Flank Pain Additional Instructions: see pcp for lauren caldera Referrals: Junior Alas MD [Primary Care Provider] - - Critical Care Critical Care Time: No Attestation: On 07/22/17, the high probability of a clinically significant, sudden or life threatening deterioration of the following system(s) required my full and direct attention, intervention and personal management. The time I documented below is in addition to time spent performing reported procedures but includes the following listed in this critical care notation. Medical Decision Making - Medical Records Medical records reviewed: Yes: I reviewed the patient's medical records. Vital Signs: 07/22/17 19:48 Temperature 97.9 F Temperature Source Oral Pulse Rate [Right Brachial] 68 Respiratory Rate 12 Blood Pressure [Right Arm] 129/71 Blood Pressure Mean [Right Arm] 90 Blood Pressure Source [Right Arm] Automatic Cuff Blood Pressure Position [Right Arm] Supine 02 Sat by Pulse Oximetry 100 Oxygen Delivery Method Room Air - Lab Data Lab results reviewed: Yes: I reviewed the patient's lab results. Lab Results 07/22/17 20:45: Urine Color Yellow, Urine Appearance Clear, Urine pH 6.5, Ur Specific [place] 1.015, Urine Protein Negative, Urine Glucose (UA) Negative, Urine Ketones Negative, Urine Blood 1+, Urine Nitrate Negative, Urine Bilirubin Negative, Urine Urobilinogen 2.0, Ur Leukocyte Esterase Negative, Urine RBC 5-10 07/22/17 21:25: WBC 8.9, RBC 4.17 L, Hgb 12.6 L, Hct 37.1 L, MCV 88.9, MCH 30.1, MCHC 33.9, RDW 16.1, Plt Count 148, MPV 9.0, Neut % (Auto) 61.1, Lymph % (Auto) 30.4, [place] % (Auto) 6.4, Eos % (Auto) 1.9, Baso % (Auto) 0.3, Neut # (Auto) 5.5, Lymph # (Auto) 2.7, [place] # (Auto) 0.6, Eos # (Auto) 0.2, Baso # (Auto) 0.0 07/22/17 21:25: Sodium 138, Potassium 3.9, Chloride 101, Carbon Dioxide 28, Anion Gap 12.9, BUN 17, Creatinine 1.20, Estimated Creat Clear 90, Estimated GFR 62, Est GFR ( Amer) 75, Glucose 95 Result diagrams: 07/22/17 21:25 07/22/17 21:25 Orders (Tests/Meds): ED MEDICATIONS Generic Name Dose Route Start Last Admin Trade Name Freq PRN Reason Stop Dose Admin Ketorolac Tromethamine 30 mg 07/22/17 22:17 Toradol 30mg/Ml Vial IV 07/22/17 22:18 ONCE ONE Methylprednisolone Sodium Succinate 125 mg 07/22/17 22:17 Solu-Medrol 125mg/2ml Vial IV 07/22/17 22:18 ONCE ONE ORDERS Category Date Time Status CT abdomen pelvis wo con Stat Cat Scan 07/22/17 20:49 Taken - CT Data CT Scan: Abdomen, Pelvis Time Received: 22:[address] Reviewed: Yes: I have viewed the radiologist's interpretation Preliminary Findings: Abnormal (see report) - Russell Inquiry Pt receiving controlled substance: No General Adult HPI - General Chief complaint: PAIN Stated complaint: RIGHT BACK/BUTTOCK PAIN Time Seen by Provider: 07/22/17 21:07 Mode of Arrival: EMS Source of Information: Patient, EMS, Medical Record Limitations: No Limitations Description of Symptoms (Recalled from ER Triage Doc. by RN): C/O RIGHT SIDED LOW BACK PAIN WITH RADIATION DOWN RIGHT BUTTOCK FOR SEVERAL DAYS. WORSE WITH MOVEMENT - History of Present Illness HPI narrative: pt with intermittant rt flank pain with rad toward rt hi over the last 2 days with no b/b sx and no fever/trauma or rash Onset (ago): day(s) Location: back Radiation: flank Severity: moderate - Related Data Home Medications Medication Instructions Recorded Confirmed amitriptyline 10 mg tablet 10 mg PO BID 05/28/17 07/22/17 atorvastatin 80 mg tablet 80 mg PO DAILY 05/28/17 07/22/17 citalopram 20 mg tablet 20 mg PO DAILY 05/28/17 07/22/17 insulin aspar prt-insulin aspart 40 unit SUB-Q DAILY ml 05/28/17 07/22/17 100 unit/mL (70-30) subcutaneous soln omega-3 fatty acids 1,000 mg 1,000 mg PO BID cap 05/28/17
--- NOTE | 2017-07-22 21:10 | ED_ITS ---
ED Disposition Clinical Impression: Flank pain, acute Disposition: Home, Self-Care Condition on Discharge: Good Instructions: DI for Flank Pain Additional Instructions: see pcp for lauren caldera Referrals: Junior Alas MD [Primary Care Provider] - - Critical Care Critical Care Time: No Attestation: On 07/22/17, the high probability of a clinically significant, sudden or life threatening deterioration of the following system(s) required my full and direct attention, intervention and personal management. The time I documented below is in addition to time spent performing reported procedures but includes the following listed in this critical care notation. Medical Decision Making - Medical Records Medical records reviewed: Yes: I reviewed the patient's medical records. Vital Signs: 07/22/17 19:48 Temperature 97.9 F Temperature Source Oral Pulse Rate [Right Brachial] 68 Respiratory Rate 12 Blood Pressure [Right Arm] 129/71 Blood Pressure Mean [Right Arm] 90 Blood Pressure Source [Right Arm] Automatic Cuff Blood Pressure Position [Right Arm] Supine 02 Sat by Pulse Oximetry 100 Oxygen Delivery Method Room Air - Lab Data Lab results reviewed: Yes: I reviewed the patient's lab results. Lab Results 07/22/17 20:45: Urine Color Yellow, Urine Appearance Clear, Urine pH 6.5, Ur Specific [place] 1.015, Urine Protein Negative, Urine Glucose (UA) Negative, Urine Ketones Negative, Urine Blood 1+, Urine Nitrate Negative, Urine Bilirubin Negative, Urine Urobilinogen 2.0, Ur Leukocyte Esterase Negative, Urine RBC 5-10 07/22/17 21:25: WBC 8.9, RBC 4.17 L, Hgb 12.6 L, Hct 37.1 L, MCV 88.9, MCH 30.1 , MCHC 33.9, RDW 16.1, Plt Count 148, MPV 9.0, Neut % (Auto) 61.1, Lymph % (Auto ) 30.4, [place] % (Auto) 6.4, Eos % (Auto) 1.9, Baso % (Auto) 0.3, Neut # (Auto) 5.5, Lymph # (Auto) 2.7, [place] # (Auto) 0.6, Eos # (Auto) 0.2, Baso # (Auto) 0.0 07/22/17 21:25: Sodium 138, Potassium 3.9, Chloride 101, Carbon Dioxide 28, Anion Gap 12.9, BUN 17, Creatinine 1.20, Estimated Creat Clear 90, Estimated GFR 62, Est GFR ( Amer) 75, Glucose 95 Result diagrams: 07/22/17 21:25 07/22/17 21:25 Orders (Tests/Meds): ED MEDICATIONS Generic Name Dose Route Start Last Admin Trade Name Freq PRN Reason Stop Dose Admin Ketorolac Tromethamine 30 mg 07/22/17 22:17 Toradol 30mg/Ml Vial IV 07/22/17 22:18 ONCE ONE Methylprednisolone Sodium Succinate 125 mg 07/22/17 22:17 Solu-Medrol 125mg/2ml Vial IV 07/22/17 22:18 ONCE ONE ORDERS Category Date Time Status CT abdomen pelvis wo con Stat Cat Scan 07/22/17 20:49 Taken - CT Data CT Scan: Abdomen, Pelvis Time Received: 22:[address] Reviewed: Yes: I have viewed the radiologist's interpretation Preliminary Findings: Abnormal (see report) - Russell Inquiry Pt receiving controlled substance: No General Adult HPI - General Chief complaint: PAIN Stated complaint: RIGHT BACK/BUTTOCK PAIN Time Seen by Provider: 07/22/17 21:07 Mode of Arrival: EMS Source of Information: Patient, EMS, Medical Record Limitations: No Limitations Description of Symptoms (Recalled from ER Triage Doc. by RN): C/O RIGHT SIDED LOW BACK PAIN WITH RADIATION DOWN RIGHT BUTTOCK FOR SEVERAL DAYS. WORSE WITH MOVEMENT - History of Present Illness HPI narrative: pt with intermittant r
[2017-07-22 21:45] LABS: Basophils % 0.3 % (0.1-2.0); Eosinophils # 0.2 K/mm3 (0.0-0.4); Eosinophils % 1.9 % (0.1-12.0); Hematocrit 37.1 % (42.0-52.0); Hemoglobin 12.6 g/dL (14.1-18.0); Lymphocytes # 2.7 K/mm3 (0.7-4.5); Lymphocytes % 30.4 K/mm3 (10-50); Mean Corpuscular HGB Conc 33.9 g/dL (31.8-35.4); Mean Corpuscular Hemoglobin 30.1 pg (27.0-31.2); Mean Corpuscular Volume 88.9 fl (80-94); Monocytes # 0.6 K/mm3 (0.1-1.0); Monocytes % 6.4 % (1.7-9.3); Neutrophils # 5.5 K/mm3 (1.8-7.8); Neutrophils % 61.1 % (37.0-80.0); Platelet Count 148 K/mm3 (142-424); Red Blood Count 4.17 M/mm3 (4.60-6.20); Red Cell Distribution Width 16.1 % (11.5-17.5); White Blood Count 8.9 K/mm3 (4.8-10.8)
[2017-07-22 21:53] LABS: Anion Gap 12.9 mEq/L (5-15); Blood Urea Nitrogen 17 mg/dL (7-18); Carbon Dioxide 28 mmol/L (21.0-32.0); Chloride 101 mmol/L (98-107); Creatinine Clearance Estimated 90 mL/min (0-300); Estimated Glomerular Filt Rate 62 ml/min (>60); GFR (African American) 75 ML/MIN (>60); Glucose 95 mg/dL (74-106); Potassium 3.9 mmoL/L (3.5-5.1); Sodium 138 mmol/L (136-145)
[2017-07-22 22:34] VITALS: BP 130/69; PULSE 64; RESP 14; TEMP 36.6; O2SAT 99
== END 2017-07-22 22:37 | disposition home or self-care (01) ==
PROVIDERS: Emergency Provider Emergency Medicine; Family Provider Emergency Medicine; PCP Emergency Medicine
DX: R10.9 Unspecified abdominal pain (principal); I25.10 Atherosclerotic heart disease of native coronary artery without angina pectoris; E11.9 Type 2 diabetes mellitus without complications; E78.5 Hyperlipidemia, unspecified; I10 Essential (primary) hypertension; Z88.5 Allergy status to narcotic agent; Z79.4 Long term (current) use of insulin; Z86.73 Personal history of transient ischemic attack (TIA), and cerebral infarction without residual deficits; Z79.899 Other long term (current) drug therapy
CPT/HCPCS: 74176; 80048; 81001; 85025; 96374; 96375; 99283

== ENCOUNTER 2017-10-16 12:16 | Observation (INO) ==
--- NOTE | 2017-10-16 12:30 | Emergency Department Note ---
ED Disposition Clinical Impression: Angina pectoris Disposition: Still a Patient Condition on Discharge: Fair Referrals: Junior Alas MD [Primary Care Provider] - - Critical Care Critical Care Time: No Attestation: On 10/16/17, the high probability of a clinically significant, sudden or life threatening deterioration of the following system(s) required my full and direct attention, intervention and personal management. The time I documented below is in addition to time spent performing reported procedures but includes the following listed in this critical care notation. Medical Decision Making - Russell Inquiry Pt receiving controlled substance: No Vital Signs: 10/16/17 12:24 10/16/17 13:51 Temperature 99.0 F Temperature Source Oral Pulse Rate [Left Radial] 67 55 L Respiratory Rate 18 20 Blood Pressure [Right Arm] 121/72 119/64 Blood Pressure Mean [Right Arm] 88 82 Blood Pressure Source [Right Arm] Automatic Cuff Automatic Cuff Blood Pressure Position [Right Arm] Sitting Sitting 02 Sat by Pulse Oximetry 99 94 L Oxygen Delivery Method Room Air Room Air - Lab Data Lab Results 10/16/17 12:25: WBC 7.6, RBC 3.81 L, Hgb 12.4 L, Hct 35.3 L, MCV 92.6, MCH 32.4 H, MCHC 35.0, RDW 13.5, Plt Count 161, MPV 9.4, Neut % (Auto) 54.3, Lymph % ( Auto) 31.2, [place] % (Auto) 10.1 H, Eos % (Auto) 4.0, Baso % (Auto) 0.4, Neut # ( Auto) 4.1, Lymph # (Auto) 2.4, [place] # (Auto) 0.8, Eos # (Auto) 0.3, Baso # (Auto ) 0.0 10/16/17 12:25: Sodium 137, Potassium 4.0, Chloride 101, Carbon Dioxide 27, Anion Gap 13.0, BUN 20 H, Creatinine 1.10, Estimated Creat Clear 107, Estimated GFR 69, Est GFR ( Amer) 83, Glucose 98, Troponin I < 0.02 Result diagrams: 10/16/17 12:25 10/16/17 12:25 Orders (Tests/Meds): ORDERS Category Date Time Status Troponin I Stat Lab 10/16/17 12:25 Ordered - Radiology Data #1 Image(s): Chest Image Reviewed: Yes I have reviewed radiologist's interpretation Preliminary Findings: Normal/NAD - ECG Data Tracing #1 EKG interpreted by Armando Burgess MD: Rhythm: sinus Rate: 67 [place]: normal Ectopy: none Conduction: normal ST Segment Changes: none T Wave Changes: none Q Waves: Leads III and aVF No evidence of acute ischemia or injury Low voltage QRS Prior electrocardiagrams reviewed. No change from prior tracings. - Physician Consults Physician Consulted: Bishop Time: 14:13 Reason -: Admission Comment/Response: Agrees to admit the patient to the hospital. We discussed the patient's clinical information, including history, exam, laboratory and radiology results and ED course. Per hospital procedure, I will write temporary bridge inpatient orders on the patient. Specific orders requested by the admitting physician: Serial cardiac enzymes, cardiology consult Medical Decision Narrative: ASHLEIGH Iverson, for Dr. Alonso saw that the patient was in the emergency department and reviewed his records. The patient was seen in their office yesterday. He says that the patient can be admitted to the hospital tonight and they will perform left heart cath tomorrow. General Adult HPI - General Stated complaint: Chest pain Time Seen by Provider: 10/16/17 12:30 - History of Present Illness HPI narrative: The patient is brought in by ambulance from [facility]. He states that he began having substernal chest pain 10/10 with shortness of breath and dizziness before lunch today. He cannot give me a specific time. Denies nausea or diaphoresis. Says that he has been treated with nitroglycerin and aspirin which has not changed his pain. He declines pain medication stating it will not help because his pain is "due to blocked arteries". He says he has 5 cardiac stents. Deli [employer] is Dr. Alonso. - Related Data Home Medications Medication Instructions Recorded Confirmed amitriptyline 10 mg tablet 10 mg PO BID 05/28/17 10/16/17 atorvastatin 80 mg tablet 80 mg PO DAILY 05/28/17 10/16/17 citalopram 20 mg tablet 20 mg PO DAILY 05/28/17 10/16/17 insulin aspar prt-insulin aspart 40 unit SUB-Q DAILY ml 05/28/17 10/16/17 100 unit/mL (70-30) subcutaneous soln omega-3 fatty acids 1,000 mg 1,000 mg PO BID cap 05/28/17 10/16/17 capsule diclofenac sodium 75 mg 75 mg PO BID 07/09/17 10/16/17 tablet,delayed release ondansetron HCl 4 mg tablet 4 mg PO Q6H PRN tab 07/09/17 10/16/17 Carvedilol [Coreg 6.25mg 6.25 mg PO BID 07/22/17 10/16/17 Tablet] Isosorbide Mononitrate [Imdur 30mg 60 mg PO DAILY 07/22/17 10/16/17 ER tablet] Previous Rx's Medication Instructions Recorded Aspirin [Low Dose Aspirin EC] 81 mg PO DAILY #30 tablet. 06/19/17 Nitroglycerin 0.4 mg SUBLINGUAL Q5M PRN #30 06/19/17 tab.subl Ticagrelor [Brilinta 90mg Tablet] 90 mg PO BID #60 tablet 06/19/17 diltiazem CD 120 mg 120 mg PO DAILY 90 Days #90 cap 08/15/17 capsule,extended release 24 hr albuterol sulfate HFA 90 2 puff INHALATION Q4-6H PRN 30 09/19/17 mcg/actuation aerosol inhaler Days #6.7 g hydrochlorothiazide 25 mg tablet 25 mg PO DAILY 90 Days #90 tab 09/19/17 lisinopril 10 mg tablet 10 mg PO DAILY 90 Days #90 tab 09/19/17 ranolazine ER 500 mg 1,000 mg PO BID 90 Days #360 tab 09/19/17 tablet,extended release,12 hr Allergies Allergy/AdvReac Type Severity Reaction Status Date / Time morphine [MORPHINE] Allergy Severe I-ITCHING Verified 06/18/17 08:47 [facility] History I have reviewed the patient's past medical history: Yes Medical History: Reports:: Coronary Artery Disease, Cerebrovascular Accident, Diabetes Mellitus Type 1, Diabetes Mellitus Type 2, Hyperlipidemia, Hypertension , Myocardial Infarction, Seizures Denies:: Cancer, Internal Pacemaker, MRSA Other Surgeries: Yes: Other (LHC-stents). No: Pacemaker Amputation: Yes (Left toe) Fractures: No - Social History Smoking Status: Unknown if ever smoked Alcohol Intake: never Alcohol Intake Frequency:: other Occupational Status: disabled Housing: assisted living facility Household Members: other Family Hx:: Unable to obtain ROS Obtained: Yes All systems reviewed & no additional complaints - Constitutional Constitutional: Denies fever(s) - Cardiovascular Cardiovascular: Reports chest pain - Respiratory Respiratory: No cough, Yes dyspnea - Gastrointestinal Gastrointestingal: Denies: abdominal pain, nausea, vomiting - Neurologic Neurologic: Reports numbness (Left leg, chronic) Physical Exam - General General appearance: alert, in no apparent distress - Head Head exam: atraumatic, normocephalic, normal inspection - Eye Eye exam: Present: normal appearance, PERRL, EOMI - ENT ENT exam: Present: normal exam, normal oropharynx, mucous membranes moist, TM's normal bilaterally, normal external ear exam - Neck Neck exam: Present: normal inspection, full ROM, trachea midline. Absent: meningismus, lymphadenopathy - Chest Chest inspection: Present: normal inspection, symmetric chest wall rise. Absent : tenderness - Respiratory Respiratory exam: Present: normal lung sounds bilaterally. Absent: respiratory distress - Cardiovascular Cardiovascular exam: Present: regular rate, normal rhythm. Absent: JVD - Abdominal Exam Abdominal exam: Present: soft, normal bowel sounds. Absent: distention, tenderness, guarding - Extremities Exam Extremities exam: Present: normal inspection, full ROM, normal capillary refill. Absent: calf tenderness - Back Exam Back exam: Present: normal inspection. Absent: tenderness - Neurological Exam Neurological exam: Present: alert, oriented X3 - Psychiatric Psychiatric exam: Present: normal affect, normal mood - Skin Skin exam: Present: warm, dry, intact, normal color - Lymphatic Lymphatic Findings: no adenopathy
[2017-10-16 14:16] LABS: Basophils % 0.4 % (0.1-2.0); Eosinophils # 0.3 K/mm3 (0.0-0.4); Hematocrit 35.3 % (42.0-52.0); Hemoglobin 12.4 g/dL (14.1-18.0); Lymphocytes # 2.4 K/mm3 (0.7-4.5); Lymphocytes % 31.2 K/mm3 (10-50); Mean Corpuscular Hemoglobin 32.4 pg (27.0-31.2); Mean Corpuscular Volume 92.6 fl (80-94); Mean Platelet Volume 9.4 fl (7.4-10.4); Monocytes # 0.8 K/mm3 (0.1-1.0); Monocytes % 10.1 % (1.7-9.3); Neutrophils # 4.1 K/mm3 (1.8-7.8); Neutrophils % 54.3 % (37.0-80.0); Platelet Count 161 K/mm3 (142-424); Red Blood Count 3.81 M/mm3 (4.60-6.20); Red Cell Distribution Width 13.5 % (11.5-17.5); White Blood Count 7.6 K/mm3 (4.8-10.8)
[2017-10-16 14:22] LABS: Blood Urea Nitrogen 20 mg/dL (7-18); Carbon Dioxide 27 mmol/L (21.0-32.0); Chloride 101 mmol/L (98-107); Glucose 98 mg/dL (74-106); Sodium 137 mmol/L (136-145)
--- NOTE | 2017-10-16 16:42 | Consult Report ---
History of Present Illness Consult date: 10/16/17 Consult reason: chest pain Chief complaint: Chest pain Additional Medical History:: 1. Coronary artery disease A. Catheterization, 04/2017, coronary artery stenting of distal circumflex artery and PDA artery with medical therapy recommended for distal LAD. B. Repeat cardiac cath, 06/18/2017: ANGIOGRAPHIC RESULTS: 1. The left main artery normal 2. The left anterior descending artery has proximal 30% stenoses with additional 40% stenosis proximal to the mid LAD stent. The mid LAD stent has 40-50% in-stent restenosis. Distal to the stent the vessel is 2.25 mm in diameter and has a 60-70% stenosis followed by additional 70-80 and even 90% stenoses as the LAD wraps the apex. The entire LAD system is less than 2 mm distal to the mid 60-70% stenosis 3. The circumflex artery is a dominant vessel and is normal proximally and at mid vessel. The large first obtuse marginal artery has 40% proximal stenoses while the second obtuse marginal artery has 30% stenoses 4. The right coronary artery is a nondominant vessel and has proximal 30% stenoses with mid vessel 20% stenoses and distal stents which are all widely patent with excellent distal and proximal transitioning and no significant angiographic in-stent restenosis 5. The MOTA ventriculogram reveals slightly hyperdynamic at 75% 6. The left ventricular end-diastolic pressure moderately elevated at 20 mmHg IMPRESSION: 1. Moderate to severe disease in the mid and distal LAD 2. Mild nonflow limiting disease in the dominant circumflex artery 3. Mild nonflow limiting disease in the right coronary artery 4. Slightly hyperdynamic ejection fraction 5. Moderately elevated LVEDP consistent with diastolic dysfunction PLAN: 1. I strongly in current medical management. Nothing good will happen with revascularizing the mid and distal LAD. This vessel is small and caliber and has severe stenoses distally. Trying to revascularize this vessel would likely cause distal tearing and dissection of the vessel with poor runoff and could alternately sacrificed the entire LAD system. 2. Patient would benefit from negative inotropes such as verapamil or diltiazem 3. Diuretics would also benefit patient by decreasing EDP which would improve endothelial microvascular blood flow and would ultimately decrease angina 4. Maximize antianginal medications with Ranexa and isosorbide mononitrate combined with beta blockers 2. Diabetes mellitus, insulin requiring 3. Obesity 4. Hypertension 5. Hyperlipidemia History of present illness: 57-year-old white male with known coronary artery disease and recent coronary artery stenting in April presented to the emergency department today for unrelenting chest pain. Patient was seen in our office yesterday with complaint of exertional chest pain and shortness of breath. Previous cardiac cath end of last year and early this year showed small vessel disease of the LAD for which medical therapy had been recommended. Patient has been maximized on Ranexa, isosorbide, calcium channel drea and beta-drea with continued chest pain. Due to recurrent symptoms patient was admitted with plans for left heart catheterization tomorrow. [facility] History Medical History: Reports:: Coronary Artery Disease, Cerebrovascular Accident, Diabetes Mellitus Type 1, Hyperlipidemia, Hypertension, Myocardial Infarction, Seizures Denies:: Cancer, Diabetes Mellitus Type 2, Internal Pacemaker, MRSA Laterality Cases: Bilateral: Tonsillectomy Other Surgeries: Yes: Other (C-stents). No: Pacemaker Amputation: Yes (Left toe) Fractures: No - *Social History Educational Level: Completed High School Smoking Status: Never smoker Alcohol Intake: never Alcohol Intake Frequency:: other Occupational Status: disabled Housing: assisted living facility Household Members: other - Psychiatric History Expresses thoughts of harming self/others: None Suicide Plan Description: No Plan *Family Hx:: Unable to obtain Meds Home Medications Medication Instructions Recorded Confirmed Type amitriptyline 10 mg tablet 10 mg PO BID 05/28/17 10/16/17 History atorvastatin 80 mg tablet 80 mg PO DAILY 05/28/17 10/16/17 History citalopram 20 mg tablet 20 mg PO DAILY 05/28/17 10/16/17 History insulin aspar prt-insulin aspart 40 unit SUB-Q DAILY ml 05/28/17 10/16/17 History 100 unit/mL (70-30) subcutaneous soln omega-3 fatty acids 1,000 mg 1,000 mg PO BID cap 05/28/17 10/16/17 History capsule diclofenac sodium 75 mg 75 mg PO BID 07/09/17 10/16/17 History tablet,delayed release ondansetron HCl 4 mg tablet 4 mg PO Q6H PRN tab 07/09/17 10/16/17 History Carvedilol [Coreg 6.25mg 6.25 mg PO BID 07/22/17 10/16/17 History Tablet] Isosorbide Mononitrate [Imdur 30mg 60 mg PO DAILY 07/22/17 10/16/17 History ER tablet] Allergies Allergy/AdvReac Type Severity Reaction Status Date / Time morphine [MORPHINE] Allergy Severe I-ITCHING Verified 06/18/17 08:47 Review of Systems - *Cardiovascular Reports chest pain, Reports shortness of breath with activity - *Respiratory Reports shortness of breath with activity - *Gastrointestinal Denies abdominal pain - *Musculoskeletal Reports joint pain, Reports back pain - *Neurologic Reports numbness (Left leg, chronic) Exam Vital signs and Labs for Last 24 Hours: Temp Pulse Resp BP Pulse Ox 98.2 F 64 22 136/65 98 10/16/17 15:56 10/16/17 15:56 10/16/17 15:56 10/16/17 15:56 10/16/17 15:56 Laboratory Results - last 24 hr 10/16/17 12:25: WBC 7.6, RBC 3.81 L, Hgb 12.4 L, Hct 35.3 L, MCV 92.6, MCH 32.4 H, MCHC 35.0, RDW 13.5, Plt Count 161, MPV 9.4, Neut % (Auto) 54.3, Lymph % ( Auto) 31.2, [place] % (Auto) 10.1 H, Eos % (Auto) 4.0, Baso % (Auto) 0.4, Neut # ( Auto) 4.1, Lymph # (Auto) 2.4, [place] # (Auto) 0.8, Eos # (Auto) 0.3, Baso # (Auto ) 0.0 10/16/17 12:25: Sodium 137, Potassium 4.0, Chloride 101, Carbon Dioxide 27, Anion Gap 13.0, BUN 20 H, Creatinine 1.10, Estimated Creat Clear 107, Estimated GFR 69, Est GFR ( Amer) 83, Glucose 98, Troponin I < 0.02 10/16/17 15:04: Troponin I < 0.02 I & O for Last 24 hours: Intake & Output 10/14/17 10/15/17 10/16/17 10/17/17 11:59 11:59 11:59 11:59 Weight 214 lb 3 oz - *Routine Neck Exam Present: carotid bruit. Absent: JVD - *Routine Respiratory Exam Present: decreased breath sounds, CTA bilaterally - *Routine Cardiovascular Exam Present: RRR. Absent: murmur, gallop, rubs - *Routine Abdominal Exam Present: soft. Absent: tenderness - *Routine Extremities Exam Absent: edema - *Routine Neurological Exam Present: alert, oriented X3, moving all extremities Assessment and Plan (1) Angina pectoris Current visit: Yes Status: Acute Category: Medical Code(s): I20.9 - Angina pectoris, unspecified (2) CAD (coronary artery disease) Problem details: acute excerbation of cad Current visit: No Status: Acute Qualifiers: Category: Medical Code(s): I25.10 - Atherosclerotic heart disease of [place] coronary artery without angina pectoris (3) Renal insufficiency Current visit: No Status: Acute Category: Medical Code(s): N28.9 - Disorder of kidney and ureter, unspecified (4) Diabetes Current visit: No Status: Chronic Category: Medical Code(s): E11.9 - Type 2 diabetes mellitus without complications (5) HHD (hypertensive heart disease) Current visit: No Status: Chronic Qualifiers: Heart failure presence: without heart failure Qualified Code(s): I11.9 - Hypertensive heart disease without heart failure Category: Medical Code(s): I11.9 - Hypertensive heart disease without heart failure (6) HLD (hyperlipidemia) Current visit: No Status: Chronic Qualifiers: Hyperlipidemia type: unspecified Qualified Code(s): E78.5 - Hyperlipidemia , unspecified Category: Medical Code(s): E78.5 - Hyperlipidemia, unspecified - Assessment and plan all Dx Assessment and Plan for all problems:: 1. Continue Ranexa thousand milligrams twice daily, Coreg 6.25 mg twice daily, diltiazem 120 mg daily and isosorbide 60 mg daily along with dual antiplatelet therapy with aspirin and Brilinta. 2. We will plan to proceed with cardiac catheterization tomorrow to reevaluate the patient's coronary artery disease and possible stenting of the LAD.
--- NOTE | 2017-10-17 07:30 | Pharmacy Consult Notes ---
[facility] Pharmacy VTE Monitoring - Patient Demographics Admission date: 10/16/17 Report Date: 10/17/17 Time: 07:30 Allergies/Adverse Reactions: Patient Allergies morphine [MORPHINE] Allergy (Severe, Verified 06/18/17 08:47) I-ITCHING Height: 1.68 m Weight: 97.154 kg Patient Problems: Current Active Problems Angina pectoris (Acute) - VTE Risk Labs: VTE Related Lab Results Hgb 12.4 g/dL (14.1-18.0) L 10/16/17 12:25 Hct 35.3 % (42.0-52.0) L 10/16/17 12:25 Plt Count 161 K/mm3 (142-424) 10/16/17 12:25 BUN 20 mg/dL (7-18) H 10/16/17 12:25 Creatinine 1.10 mg/dL (0.70-1.30) 10/16/17 12:25 Estimated Creat Clear 107 mL/min (0-300) 10/16/17 12:25 Was VTE Risk Assessment Performed: Yes VTE Score: 2 - Prophylaxis VTE Prophylaxis Ordered?: Yes Types of VTE Prophylaxis: TEDS Knee High, Pharmacological Pharmacologic Type: Other (BRILINTA) - VTE Diagnosis Confirmed Treatment or plan recommended: Continue Current Treatment
--- NOTE | 2017-10-17 07:33 | History & Physical Report ---
*Admission Date: 10/16/17 *Chief complaint: chest pain *History of present illness: 57-year-old white male with known coronary artery disease and recent coronary artery stenting in April presented to the emergency department today for unrelenting chest pain. Patient was seen in our office yesterday with complaint of exertional chest pain and shortness of breath. Previous cardiac cath end of last year and early this year showed small vessel disease of the LAD for which medical therapy had been recommended. Patient has been maximized on Ranexa, isosorbide, calcium channel drae and beta-drea with continued chest pain. Due to recurrent symptoms patient was admitted with plans for left heart catheterization today. [facility] History I have reviewed the patient's past medical history: Yes Medical History: Reports:: Coronary Artery Disease, Cerebrovascular Accident, Diabetes Mellitus Type 1, Hyperlipidemia, Hypertension, Myocardial Infarction, Seizures Denies:: Cancer, Diabetes Mellitus Type 2, Internal Pacemaker, MRSA Laterality Cases: Bilateral: Tonsillectomy Other Surgeries: Yes: Other (C-stents). No: Pacemaker Amputation: Yes (Left toe) Fractures: No - *Social History Educational Level: Completed High School Smoking Status: Never smoker Alcohol Intake: never Alcohol Intake Frequency:: other Occupational Status: disabled Housing: assisted living facility Household Members: other - Psychiatric History Expresses thoughts of harming self/others: None Suicide Plan Description: No Plan *Family Hx:: Unable to obtain Review of Systems - Review of Systems Review of systems:: pertinent systems reviewed and negative unless documented below - Constitutional Reports headache(s), Denies body ache(s) - Eyes Denies change in vision - ENT Reports ear discharge, Reports ear pain, Reports headache(s), Denies change in voice - *Cardiovascular Reports chest pain, Reports chest pain at rest, Reports chest pain with activity - *Respiratory Reports shortness of breath - *Gastrointestinal Denies bloating - *Genitourinary Denies difficulty urinating - *Musculoskeletal Denies joint pain - Integumentary/Breasts Denies change in hair, Denies rash - *Neurologic Reports numbness (Left leg, chronic), Denies abnormal movements - Psychiatric Denies anxiety - Endocrine Denies flushing - Hematologic/Lymphatic Denies enlarged lymph nodes - Allergic/Immunologic Denies lip swelling Meds Home Medications Medication Instructions Recorded Confirmed Type amitriptyline 10 mg tablet 10 mg PO BID 05/28/17 10/16/17 History atorvastatin 80 mg tablet 80 mg PO DAILY 05/28/17 10/16/17 History citalopram 20 mg tablet 20 mg PO DAILY 05/28/17 10/16/17 History insulin aspar prt-insulin aspart 40 unit SUB-Q DAILY ml 05/28/17 10/16/17 History 100 unit/mL (70-30) subcutaneous soln omega-3 fatty acids 1,000 mg 1,000 mg PO BID cap 05/28/17 10/16/17 History capsule diclofenac sodium 75 mg 75 mg PO BID 07/09/17 10/16/17 History tablet,delayed release ondansetron HCl 4 mg tablet 4 mg PO Q6H PRN tab 07/09/17 10/16/17 History Carvedilol [Coreg 6.25mg 6.25 mg PO BID 07/22/17 10/16/17 History Tablet] Isosorbide Mononitrate [Imdur 30mg 60 mg PO DAILY 07/22/17 10/16/17 History ER tablet] Allergies Allergy/AdvReac Type Severity Reaction Status Date / Time morphine [MORPHINE] Allergy Severe I-ITCHING Verified 06/18/17 08:47 Exam Vital signs and Labs for Last 24 Hours: Temp Pulse Resp BP Pulse Ox 97.6 F 57 L 20 128/68 96 10/17/17 04:00 10/17/17 04:00 10/17/17 04:00 10/17/17 04:00 10/17/17 04:00 Laboratory Results - last 24 hr 10/16/17 12:25: WBC 7.6, RBC 3.81 L, Hgb 12.4 L, Hct 35.3 L, MCV 92.6, MCH 32.4 H, MCHC 35.0, RDW 13.5, Plt Count 161, MPV 9.4, Neut % (Auto) 54.3, Lymph % ( Auto) 31.2, [place] % (Auto) 10.1 H, Eos % (Auto) 4.0, Baso % (Auto) 0.4, Neut # ( Auto) 4.1, Lymph # (Auto) 2.4, [place] # (Auto) 0.8, Eos # (Auto) 0.3, Baso # (Auto ) 0.0 10/16/17 12:25: Sodium 137, Potassium 4.0, Chloride 101, Carbon Dioxide 27, Anion Gap 13.0, BUN 20 H, Creatinine 1.10, Estimated Creat Clear 107, Estimated GFR 69, Est GFR ( Amer) 83, Glucose 98, Troponin I < 0.02 10/16/17 15:04: Troponin I < 0.02 10/16/17 16:41: POC Glucose 123 H 10/16/17 17:44: Troponin I < 0.02 10/16/17 20:06: POC Glucose 109 10/17/17 06:17: POC Glucose 105 I & O for Last 24 hours: Intake & Output 10/14/17 10/15/17 10/16/17 10/17/17 11:59 11:59 11:59 11:59 Intake Total 1440 / 1440 Balance 1440 / 1440 Weight 214 lb 3 oz - Constitutional no acute distress - *Routine HEENT Exam Head: Present: normocephalic Eye: Present: PERRL ENT: Present: mucous membranes moist, external ear normal - *Routine Neck Exam Present: supple, full ROM - *Routine Respiratory Exam Present: accessory muscle use, CTA bilaterally - *Routine Cardiovascular Exam Present: RRR - *Routine Abdominal Exam Present: soft, normoactive bowel sounds - *Routine Extremities Exam Present: full ROM - *Routine Skin Exam Present: intact - *Routine Neurological Exam Present: alert, oriented X3, CN II-XII intact - Routine Psychiatric Exam Present: normal affect H&P: Result - Labs Labs: Short CBC 10/16/17 Range/Units 12:25 WBC 7.6 (4.8-10.8) K/mm3 Hgb 12.4 L (14.1-18.0) g/dL Hct 35.3 L (42.0-52.0) % Plt Count 161 (142-424) K/mm3 BMP 10/16/17 12:25 Sodium 137 Potassium 4.0 Chloride 101 Carbon Dioxide 27 BUN 20 H Creatinine 1.10 Glucose 98 Cardiac Enzymes 10/16/17 10/16/17 10/16/17 Range/Units 12:25 15:04 17:44 Troponin I < 0.02 < 0.02 < 0.02 (0.00-0.06) ng/ml Assessment and Plan (1) Angina pectoris Current visit: Yes Status: Acute Category: Medical Code(s): I20.9 - Angina pectoris, unspecified (2) CAD (coronary artery disease) Problem details: acute excerbation of cad Current visit: No Status: Acute Qualifiers: Category: Medical Code(s): I25.10 - Atherosclerotic heart disease of [place] coronary artery without angina pectoris (3) Renal insufficiency Current visit: No Status: Acute Category: Medical Code(s): N28.9 - Disorder of kidney and ureter, unspecified (4) Diabetes Current visit: No Status: Chronic Category: Medical Code(s): E11.9 - Type 2 diabetes mellitus without complications (5) HHD (hypertensive heart disease) Current visit: No Status: Chronic Qualifiers: Heart failure presence: without heart failure Qualified Code(s): I11.9 - Hypertensive heart disease without heart failure Category: Medical Code(s): I11.9 - Hypertensive heart disease without heart failure (6) HLD (hyperlipidemia) Current visit: No Status: Chronic Qualifiers: Hyperlipidemia type: unspecified Qualified Code(s): E78.5 - Hyperlipidemia , unspecified Category: Medical Code(s): E78.5 - Hyperlipidemia, unspecified - Assessment and plan all Dx Assessment and Plan for all problems:: Cardiology consult with heart cath scheduled at noon today Rounded with Dr. Alas all orders per Dr. Alas
[2017-10-17 08:48] LABS: Basophils % 0.3 % (0.1-2.0); Eosinophils # 0.3 K/mm3 (0.0-0.4); Hematocrit 34.6 % (42.0-52.0); Lymphocytes # 1.8 K/mm3 (0.7-4.5); Mean Corpuscular HGB Conc 34.8 g/dL (31.8-35.4); Mean Corpuscular Hemoglobin 32.3 pg (27.0-31.2); Mean Corpuscular Volume 92.8 fl (80-94); Mean Platelet Volume 9.2 fl (7.4-10.4); Monocytes # 0.5 K/mm3 (0.1-1.0); Monocytes % 8.2 % (1.7-9.3); Neutrophils # 3.6 K/mm3 (1.8-7.8); Neutrophils % 57.5 % (37.0-80.0); Platelet Count 140 K/mm3 (142-424); Red Blood Count 3.73 M/mm3 (4.60-6.20); Red Cell Distribution Width 13.4 % (11.5-17.5); White Blood Count 6.3 K/mm3 (4.8-10.8)
[2017-10-17 09:03] LABS: Anion Gap 12.7 mEq/L (5-15); Potassium 4.7 mmoL/L (3.5-5.1)
--- NOTE | 2017-10-18 08:28 | Discharge Summary ---
General - General Admission date:: 10/16/17 Discharge date: 10/18/17 HPI HPI: 57-year-old white male with known coronary artery disease and recent coronary artery stenting in April presented to the emergency department today for unrelenting chest pain. Patient was seen in our office yesterday with complaint of exertional chest pain and shortness of breath. Previous cardiac cath end of last year and early this year showed small vessel disease of the LAD for which medical therapy had been recommended. Patient has been maximized on Ranexa, isosorbide, calcium channel drea and beta-drea with continued chest pain. Due to recurrent symptoms patient was admitted with plans for left heart catheterization today. Hospital Course Hospital Course: cath report: ANGIOGRAPHIC RESULTS: 1. The left main artery normal 2. The left anterior descending artery has proximal 20% stenoses mid vessel 20% stenoses followed by an additional mid vessel stent which has diffuse 20-30% concentric in-stent restenosis. Distal to the stent is a long tubular 60-70% stenosis which is then followed by another stent which has a mid vessel 70-80% stenosis followed by 3 distal 80-90% stenoses. 3. The circumflex artery is a dominant vessel giving rise to a very small ramus intermedius followed by a small first obtuse marginal artery which has mid vessel 50% stenoses. The second obtuse marginal artery has an ostial 60% mid vessel 50% stenosis while the terminal obtuse marginal artery has a stent in its proximal to distal segment which is widely patent. 4. The right coronary artery is a nondominant yet still large vessel giving rise to a single distal marginal branch. Proximally there are 20-30% stenoses with mid vessel 30% stenoses. The terminal marginal branch has a stent which is widely patent free of in-stent restenosis 5. The MOTA ventriculogram reveals normal 65% 6. The left ventricular end-diastolic pressure 15 mmHg IMPRESSION: 1. Coronary artery disease as described above 2. Normal ejection fraction 3. Normal to mildly elevated LVEDP PLAN: 1. Continue medical management 2. I see nothing at this time will benefit patient from a percutaneous revascularization standpoint 3. Should patient's angina remain recalcitrant I would consider a fentanyl patch and possible evaluation by the pain clinic to assist with chronic opiate usage for improvement in quality of life 4. Risk factor modification Will dc back to personal alf, will arrange pain clinic appointment as an outpatient. Objective Vital signs: Temp Pulse Resp BP Pulse Ox 97.7 F 58 L 18 143/74 98 10/18/17 07:38 10/18/17 07:38 10/18/17 07:38 10/18/17 07:38 10/18/17 07:38 no acute distress - *Routine HEENT Exam Head: Present: normocephalic Eye: Present: PERRL ENT: Present: mucous membranes moist - *Routine Neck Exam Present: full ROM - *Routine Respiratory Exam Present: CTA bilaterally - *Routine Cardiovascular Exam Present: RRR - *Routine Abdominal Exam Present: soft, normoactive bowel sounds - *Routine Extremities Exam Present: full ROM Comments: Cath site but no swelling or signs of infection - *Routine Skin Exam Present: intact - *Routine Neurological Exam Present: alert, oriented X3 - Routine Psychiatric Exam Present: normal affect Results Labs on day of discharge: Labs from last 24 hours 10/18/17 10/17/17 10/17/17 06:06 21:13 16:47 WBC RBC Hgb Hct MCV MCH MCHC RDW Plt Count MPV Neut % (Auto) Lymph % (Auto) [place] % (Auto) Eos % (Auto) Baso % (Auto) Neut # (Auto) Lymph # (Auto) [place] # (Auto) Eos # (Auto) Baso # (Auto) Sodium Potassium Chloride Carbon Dioxide Anion Gap BUN Creatinine Estimated Creat Clear Estimated GFR Est GFR ( Amer) Glucose POC Glucose 97 119 H 99 10/17/17 10/17/17 10/17/17 11:46 08:41 08:41 WBC 6.3 RBC 3.73 L Hgb 12.0 L Hct 34.6 L MCV 92.8 MCH 32.3 H MCHC 34.8 RDW 13.4 Plt Count 140 L MPV 9.2 Neut % (Auto) 57.5 Lymph % (Auto) 29.0 [place] % (Auto) 8.2 Eos % (Auto) 5.0 Baso % (Auto) 0.3 Neut # (Auto) 3.6 Lymph # (Auto) 1.8 [place] # (Auto) 0.5 Eos # (Auto) 0.3 Baso # (Auto) 0.0 Sodium 138 Potassium 4.7 Chloride 104 Carbon Dioxide 26 Anion Gap 12.7 BUN 19 H Creatinine 1.14 Estimated Creat Clear 96 Estimated GFR 66 Est GFR ( Amer) 80 Glucose 119 H D POC Glucose 98 - Additional Comments Dr. Alas rounded earlier all orders per Dr. Alas DS: Diagnosis - Discharge Diagnosis (1) Angina pectoris Status: Acute (2) CAD (coronary artery disease) Status: Acute Problem details: acute excerbation of cad (3) Renal insufficiency Status: Acute (4) Diabetes Status: Chronic (5) HHD (hypertensive heart disease) Status: Chronic (6) HLD (hyperlipidemia) Status: Chronic Discharge Plan - Patient Discharge Instructions ACTIVITY: Continue current activity DIET: continue same diet - Follow up Plan Follow up with: Heladio Alonso MD [Staff Physician] - 10/22/17 Kamaljit Bustos MD [Staff Physician] - 10/24/17 Junior Alas MD [Primary Care Provider] - 10/23/17 Disposition: Home, Self-[facility] Medications: Home Medications Medication Instructions Recorded Confirmed Type amitriptyline 10 mg tablet 10 mg PO HS 05/28/17 10/17/17 History atorvastatin 80 mg tablet 80 mg PO HS 05/28/17 10/17/17 History citalopram 20 mg tablet 20 mg PO DAILY 05/28/17 10/16/17 History insulin aspar prt-insulin aspart 50 unit SUB-Q DIRECTED ml 05/28/17 History 100 unit/mL (70-30) subcutaneous soln omega-3 fatty acids 1,000 mg 1,000 mg PO BID cap 05/28/17 10/16/17 History capsule diclofenac sodium 75 mg 75 mg PO BIDP PRN 07/09/17 10/17/17 History tablet,delayed release ondansetron HCl 4 mg tablet 4 mg PO Q6HP PRN tab 07/09/17 10/17/17 History Carvedilol [Coreg 6.25mg 6.25 mg PO BID 07/22/17 10/16/17 History Tablet] Isosorbide Mononitrate [Imdur 30mg 60 mg PO DAILY 07/22/17 10/16/17 History ER tablet] Fluticasone/Vilanterol [Breo 1 puff IH DAILY 10/17/17 10/17/17 History Ellipta 100-25 Mcg INH] Insulin Aspart Prot/Insuln Asp 40 unit SQ DIRECTED 10/17/17 10/17/17 History [Novolog Mix 70/30 Flexpen 100 Units/mL 3mL] Prescriptions/Medication Reconciliation: Continue amitriptyline 10 mg tablet 10 mg PO HS citalopram 20 mg tablet 20 mg PO DAILY atorvastatin 80 mg tablet 80 mg PO HS omega-3 fatty acids 1,000 mg capsule 1,000 mg PO BID cap ondansetron HCl 4 mg tablet 4 mg PO Q6HP PRN tab PRN Reason: Nausea diclofenac sodium 75 mg tablet,delayed release 75 mg PO BIDP PRN PRN Reason: PAIN diltiazem CD 120 mg capsule,extended release 24 hr 120 mg PO DAILY 90 Days # 90 cap albuterol sulfate HFA 90 mcg/actuation aerosol inhaler 2 puff INHALATION Q4- 6H PRN 30 Days #6.7 g PRN Reason: shortness of breath or wheezing ranolazine ER 500 mg tablet,extended release,12 hr 1,000 mg PO BID 90 Days # 360 tab hydrochlorothiazide 25 mg tablet 25 mg PO DAILY 90 Days #90 tab lisinopril 10 mg tablet 10 mg PO DAILY 90 Days #90 tab Aspirin [Low Dose Aspirin EC] 81 mg PO DAILY #30 tablet. Nitroglycerin 0.4 mg SUBLINGUAL Q5M PRN #30 tab.subl PRN Reason: Angina Ticagrelor [Brilinta 90mg Tablet] 90 mg PO BID #60 tablet Carvedilol [Coreg 6.25mg Tablet] 6.25 mg PO BID Fluticasone/Vilanterol [Breo Ellipta 100-25 Mcg INH] 1 puff IH DAILY Insulin Aspart Prot/Insuln Asp [Novolog Mix 70/30 Flexpen 100 Units/mL 3mL] 40 unit SQ DIRECTED Isosorbide Mononitrate [Imdur 30mg ER tablet] 60 mg PO DAILY No Action insulin aspar prt-insulin aspart 100 unit/mL (70-30) subcutaneous soln 50 unit SUB-Q DIRECTED ml
== END 2017-10-18 11:45 | disposition home or self-care (01) ==
LOC: ER 12:16 → 2ND 12:16
PROVIDERS: ADMIT Emergency Medicine; ATTEND Emergency Medicine

== ENCOUNTER → 2018-02-18 12:36 | Outpatient (CLI) | payer MEDICARE, BC, SELFPAY | PROVIDERS: Visit Provider Internal Medicine | DX: R00.1 Bradycardia, unspecified (principal); R53.83 Other fatigue | CPT/HCPCS: 93225; 93226 ==

== ENCOUNTER → 2018-06-23 09:33 | Outpatient (CLI) | payer MEDICARE, BC, SELFPAY ==
--- NOTE | 2018-06-23 09:34 | CA_ITS ---
PROCEDURE: 2-D M-mode and color Doppler study INDICATIONS FOR THE TEST: Chest pain + COPD Heart Murmur Tobacco Smoking Palpitations Fatigue+ Syncope Edema+ Hypertension Diabetes Mellitus+ Rheumatic Fever SOB+CARVAJAL Obesity+Hyperlipidemia+ Family History HD Additional History cad, stents PATIENT INFORMATION HEIGHT: 66 WEIGHT:221 GENDER: Male B/P:134/70 2-D/M-MODE INTERPRETATION: 2-D MEASUREMENTS OBSERVED VALUES IN CMS Right Ventricular Dimension (RVDd) 2.3 Interventricular Septum (Thickness)(IVsd) 1.6 Left Ventricular Internal Dimensions(LVIDd) 5.2 Left Ventricular Posterior Wall (Thickness)(LVPWd) 1.0 Aortic Root 3.5 Aortic Cusp Separation 2.0 Left Atrial Dimensions (LAD) 4.2 2D 1. Left atrium is mildly enlarged, left ventricle is normal size, mild concentric left ventricular hypertrophy, visually estimated ejection fraction 50% wall motion abnormality. 2. The right atrium and right ventricle are normal size and contractility. 3. The aortic valve is thickened and calcified leaflet continue to display mobility. 4. The mitral and tricuspid valve is minimally thickened. 5. Pulmonic valve is poorly visualized. 6. No significant pericardial effusion noted. DOPPLER INTERROGATION: Doppler interrogation of the aortic, mitral and tricuspid valvular presence of mild aortic, mild mitral and tricuspid regurgitation, tricuspid regurgitation jet velocity is inadequate for calculation of the right ventricular systolic pressure, grade 1 diastolic dysfunction seen with tissue Doppler evidence of raised left atrial pressure. CONCLUSION: 1. Mildly enlarged left atrium, normal left ventricular size, mild concentric left ventricular hypertrophy, visually estimated ejection fraction 50% with no regional wall motion abnormality, grade 1 diastolic dysfunction seen with tissue Doppler evidence of raised left atrial pressure. 2. Mild aortic, mild mitral and tricuspid regurgitation 3. No significant pericardial effusion noted.
== END ==
PROVIDERS: PCP Emergency Medicine; Visit Provider Internal Medicine
DX: E11.9 Type 2 diabetes mellitus without complications (principal); E78.5 Hyperlipidemia, unspecified; I11.9 Hypertensive heart disease without heart failure; I20.9 Angina pectoris, unspecified; R06.00 Dyspnea, unspecified; Z95.5 Presence of coronary angioplasty implant and graft; Z79.4 Long term (current) use of insulin
CPT/HCPCS: 93306

== ENCOUNTER → 2018-10-28 09:16 | Outpatient (POV) | payer MEDICARE, BC, SELFPAY | PROVIDERS: Visit Provider Otolaryngology | DX: Z00.00 Encounter for general adult medical examination without abnormal findings (principal) ==

== ENCOUNTER → 2018-12-30 09:30 | Outpatient (POV) | payer MEDICARE, BC, SELFPAY | PROVIDERS: Visit Provider Otolaryngology | DX: Z00.00 Encounter for general adult medical examination without abnormal findings (principal) ==

== ENCOUNTER → 2019-01-08 13:23 | Outpatient (CLI) | payer MEDICARE, BC, SELFPAY ==
--- NOTE | 2019-01-08 13:25 | CT_ITS ---
PROCEDURE: CT TEMPORAL BONE WITHOUT CLINICAL HISTORY: PERFORATION RT TYMPANIC MEMBRANE, OTORRHEA RT EAR COMPARISON: No exams were available for comparison TECHNIQUE: Axial images obtained with sagittal and coronal reformats. All CT scans at the facility use one or more dose reduction, viz: automated exposure control, ma/kV adjustment per patient size (including targeted exams where dose is matched to indication, i.e. head), or iterative reconstruction technique. FINDINGS: There is mild mucosal thickening of the anterior aspect of the ethmoid sinuses. There is mild leftward nasal septal deviation. Mild mucosal thickening is present along the floor the left maxillary sinus with some lobularity suggesting small retention cyst. The roots of the left maxillary molars extend into the lower aspect of the maxillary sinus and could be within the sinus proper itself. There are osteoarthritic changes of the TMJs. There is moderate opacification of the right mastoid air cells. There may be perforation of the tympanic membrane somewhat difficult to ascertain. The tympanic membrane appears slightly thickened anteriorly could be perforated posteriorly. Alternatively, it could be just thinned posteriorly. Direct visualization is suggested. The middle ear cavity does not appear opacified. No evidence of cholesteatoma or scutum erosion. Scattered small lymph nodes are present in the neck. Degenerative changes cervical spine IMPRESSION: Mild right mastoid sinus opacification with thickening of the tympanic membrane on the right anteriorly and possible perforation posteriorly. Direct visualization suggested. Mild paranasal sinus inflammatory changes No evidence of cholesteatoma. No bony erosive process apparent. Dictated by: Adam Hughes MD 01/09/2019 05:58 Signed by: <Electronically signed by Adam Hughes MD in [place]> 01/09/2019 05:58
== END ==
PROVIDERS: Visit Provider Otolaryngology
DX: H72.91 Unspecified perforation of tympanic membrane, right ear (principal); H92.11 Otorrhea, right ear
CPT/HCPCS: 70480

== ENCOUNTER 2019-02-18 13:40 | Inpatient (IN) ==
[2019-02-18 14:07] LABS: Basophils % 0.1 % (0.1-2.0); Eosinophils % 0.2 % (0.1-12.0); Hematocrit 36.2 % (42.0-52.0); Hemoglobin 11.5 g/dL (14.1-18.0); Lymphocytes # 1.2 K/mm3 (0.7-4.5); Lymphocytes % 6.5 % (10-50); Mean Corpuscular HGB Conc 31.7 g/dL (31.8-35.4); Mean Corpuscular Volume 100.3 fl (80-94); Mean Platelet Volume 8.6 fl (7.4-10.4); Monocytes # 1.6 K/mm3 (0.1-1.0); Neutrophils # 15.2 K/mm3 (1.8-7.8); Neutrophils % 84.1 % (37.0-80.0); Platelet Count 195 K/mm3 (142-424); Red Blood Count 3.61 M/mm3 (4.60-6.20); Red Cell Distribution Width 14.5 % (11.5-17.5); White Blood Count 18.1 K/mm3 (4.8-10.8)
--- NOTE | 2019-02-18 14:15 | Emergency Department Note ---
ED Disposition Clinical Impression: Diabetic foot infection, Hyponatremia Diabetic foot ulcer Qualifiers: Diabetic foot ulcer location: toe Diabetes mellitus type: other specified (including LORRAINE) Laterality: left Non-pressure ulcer stage: with fat layer exposed Qualified Code(s): E13.621 - Other specified diabetes mellitus with foot ulcer; L97.522 - Non-pressure chronic ulcer of other part of left foot with fat layer exposed Disposition: Admitted As Inpatient Condition on Discharge: Fair Referrals: Provider,Referral, [Primary Care Provider] - - Critical Care Critical Care Time: No Attestation: On 02/18/19, the high probability of a clinically significant, sudden or life threatening deterioration of the following system(s) required my full and direct attention, intervention and personal management. The time I documented below is in addition to time spent performing reported procedures but includes the following listed in this critical care notation. Medical Decision Making - Russell Inquiry Pt receiving controlled substance: No Vital Signs: 02/18/19 13:32 02/18/19 14:47 Temperature 98.1 F Temperature Source Oral Pulse Rate [Right Radial] 72 69 Respiratory Rate 16 18 Blood Pressure [Right Arm] 114/61 93/53 L Blood Pressure Mean [Right Arm] 78 66 Blood Pressure Source [Right Arm] Automatic Cuff Automatic Cuff Blood Pressure Position [Right Arm] Sitting Supine 02 Sat by Pulse Oximetry 99 97 Oxygen Delivery Method Room Air Room Air - Lab Data Lab Results 02/18/19 13:55: WBC 18.1 H, RBC 3.61 L, Hgb 11.5 L, Hct 36.2 L, MCV 100.3 H, MCH 31.8 H, MCHC 31.7 L, RDW 14.5, Plt Count 195, MPV 8.6, Neut % (Auto) 84.1 H, Lymph % (Auto) 6.5 L, [place] % (Auto) 9.0, Eos % (Auto) 0.2, Baso % (Auto) 0.1, Neut # (Auto) 15.2 H, Lymph # (Auto) 1.2, [place] # (Auto) 1.6 H, Eos # (Auto) 0.0, Baso # (Auto) 0.0, Total Counted 100, Neutrophils % (Manual) 79 H, Band Neutrophils % 8.0, Lymphocytes % (Manual) 6 L, Monocytes % (Manual) 7, Platelet Estimate Normal 02/18/19 13:55: Sodium 122 L, Potassium 4.3, Chloride 88 L, Carbon Dioxide 25, Anion Gap 13.3, BUN 34 H, Creatinine 1.90 H, Estimated Creat Clear 56, Estimated GFR 36 L, Est GFR ( Amer) 44 L, Glucose 138 H, Calcium 8.8, Total Bilirubin 2.9 H, AST 23, ALT 20, Alkaline Phosphatase 53, Troponin I < 0.02, Total Protein 7.3, Albumin 2.8 L, Globulin 4.5 H, Albumin/Globulin Ratio 0.6 L 02/18/19 13:55: ESR > 140 H 02/18/19 13:55: C-Reactive Protein 18.1 H 02/18/19 14:25: Lactate 1.6 Result diagrams: 02/18/19 13:55 02/18/19 13:55 Orders (Tests/Meds): ED MEDICATIONS Generic Name Dose Route Start Last Admin Trade Name Freq PRN Reason Stop Dose Admin Cefepime HCl 2 gm/ Sodium 100 mls @ 200 mls/hr 02/18/19 15:00 Chloride IV 03/04/19 14:59 Q12H MED Protocol Vancomycin HCl 1,750 mg/ 250 mls @ 125 mls/hr 02/18/19 15:12 02/18/19 15:21 Sodium Chloride IV 02/18/19 16:59 125 mls/hr Q18H ONE Administration Vancomycin HCl 1,750 mg/ 250 mls @ 125 mls/hr 02/19/19 17:00 Sodium Chloride IV 03/05/19 16:59 Q24H MED Discontinued Medications Generic Name Dose Route Start Last Admin Trade Name Freq PRN Reason Stop Dose Admin Piperacillin Sod/Tazobactam 50 mls @ 100 mls/hr 02/18/19 15:00 Sod 3.375 gm/ Sodium Chloride IV 03/04/19 14:59 Q6H MED Protocol Vancomycin HCl 1,750 mg/ 250 mls @ 125 mls/hr 02/18/19 15:00 Sodium Chloride IV 03/04/19 14:59 Q18H MED Miscellaneous 1 each 02/18/19 14:30 Vancomycin Consult Request NOTAPPLIC 02/19/19 02:26 CONSULT PHARMACY MED ORDERS Category Date Time Status XR foot LT min 3V Stat Exams 02/18/19 14:23 Taken UA [Urinalysis and Microscopic] Stat Lab 02/18/19 13:40 Ordered Blood Culture Stat Micro 02/18/19 14:14 Received - Radiology Data #1 Image(s): Chest Image Reviewed: Yes I have reviewed radiologist's interpretation Preliminary Findings: Normal/NAD #2 Image(s): Foot/Toes Image Reviewed: Yes I reviewed the patient's radiology image prior amputation 2nd toe, no soft tissue air or signs of osteomyelitis great toe - Physician Consults Physician Consulted: Bishop Time: 16:14 Reason -: Admission Comment/Response: Agrees to admit the patient to the hospital. We discussed the patient's clinical information, including history, exam, laboratory and radiology results and ED course. Per hospital procedure, I will write temporary bridge inpatient orders on the patient. Specific orders requested by the admitting physician: Continue vancomycin and cefepime. Normal saline. General Adult HPI - General Chief complaint: Weakness Stated complaint: WEAKNESS Time Seen by Provider: 02/18/19 14:15 Mode of Arrival: EMS Limitations: No Limitations Description of Symptoms (Recalled from ER Triage Doc. by RN): PT BROUGHT TO ED VIA EMS FROM [facility] PER DR NEAL'S REQUEST D/T PROGRESSIVE WEAKNESS OVER THE LAST WEEK. [facility] STAFF REPORT THAT DR NEAL REQUESTED PT HGB BE CHECKED. - History of Present Illness HPI narrative: Brought in by ambulance from [facility]. Patient is a poor historian. His history is of questionable reliability. His complaint is that he feels weak. He says it is been going on for 3 weeks. He is currently denying any pain. - Related Data Home Medications Medication Instructions Recorded Confirmed diclofenac sodium 75 mg 75 mg PO BIDP PRN 07/09/17 09/16/18 tablet,delayed release ondansetron HCl 4 mg tablet 4 mg PO Q6HP PRN tab 07/09/17 09/16/18 Carvedilol [Coreg 6.25mg 6.25 mg PO BID 07/22/17 09/16/18 Tablet] Insulin Aspart Prot/Insuln Asp 40 unit SQ DIRECTED 10/17/17 09/16/18 [Novolog Mix 70/30 Flexpen 100 Units/mL 3mL] amitriptyline 10 mg tablet 10 mg PO BID tab 02/18/18 09/16/18 Previous Rx's Medication Instructions Recorded Nitroglycerin 0.4 mg SUBLINGUAL Q5M PRN #30 06/19/17 tab.subl omega-3 fatty acids 1,000 mg 1,000 mg PO BID #180 cap 10/20/17 capsule pen needle, diabetic, safety 30 See Dose Instructions .ROUTE 12/26/17 gauge x 1/3" .MEDSUPPLY #100 each isosorbide mononitrate ER 60 mg 60 mg PO QAM #90 tab 01/02/18 tablet,extended release 24 hr insulin aspar prt-insulin aspart 50 unit SUB-Q DIRECTED #10 ml 03/13/18 100 unit/mL (70-30) subcutaneous soln Amoxicillin/Potassium Clav 1 tab PO BID #10 tab 03/18/18 [Augmentin 500mg tab] metroNIDAZOLE [Flagyl 500mg 500 mg PO TID #21 tab 03/18/18 Tablet] ticagrelor 90 mg tablet 90 mg PO BID #180 tab 05/22/18 atorvastatin 80 mg tablet 80 mg PO HS #90 tab 07/02/18 citalopram 20 mg tablet 20 mg PO DAILY #90 tab 07/02/18 fluticasone furoate 100 1 inh INHALATION DAILY #28 each 07/02/18 mcg-vilanterol 25 mcg/dose inhalation powder diltiazem CD 120 mg 120 mg PO DAILY #90 cap 08/21/18 capsule,extended release 24 hr aspirin 81 mg tablet,delayed See Rx Instructions .ROUTE 01/16/19 release .COMPLEX #90 each Allergies Allergy/AdvReac Type Severity Reaction Status Date / Time morphine [MORPHINE] Allergy Severe I-ITCHING Verified 09/16/18 11:04 [facility] History - Hepatitis A Screen Drug use history?: No High risk sexual behaviors?: No History of sexually transmitted infection?: No Currently employed?: No Childcare worker?: No Do you have indoor plumbing?: Yes Do you have electricity?: Yes Attestation statement:: This patient has been screened for Hepatitis A risk factors. I have reviewed the patient's past medical history: Yes Medical History: Reports:: Coronary Artery Disease, Cerebrovascular Accident, Diabetes Mellitus Type 1, Hyperlipidemia, Hypertension, Myocardial Infarction, Seizures Denies:: Cancer, Diabetes Mellitus Type 2, Internal Pacemaker, MRSA Laterality Cases: Bilateral: Tonsillectomy Other Surgeries: Yes: Other (LHC-stents). No: Pacemaker Amputation: Yes (Left toe) Fractures: No - Social History Smoking Status: Never smoker Alcohol Intake: never Alcohol Intake Frequency:: other Substance Use Type: denies use Occupational Status: disabled Housing: assisted living facility Household Members: other Family Hx:: Unable to obtain ROS Obtained: Yes All systems reviewed & no additional complaints - Cardiovascular Cardiovascular: Reports chest pain (not currently, states intermittent) - Respiratory Respiratory: No cough, No dyspnea - Gastrointestinal Gastrointestingal: Reports: vomiting. Denies: abdominal pain, diarrhea - Genitourinary Male Genitourinary: Denies difficulty urinating Physical Exam - General General appearance: alert, in no apparent distress - Head Head exam: atraumatic, normocephalic - Eye Eye exam: Present: normal appearance, EOMI - ENT ENT exam: Present: mucous membranes moist - Neck Neck exam: Present: normal inspection, trachea midline. Absent: meningismus, lymphadenopathy - Chest Chest inspection: Present: normal inspection, symmetric chest wall rise - Respiratory Respiratory exam: Present: normal lung sounds bilaterally. Absent: respiratory distress - Cardiovascular Cardiovascular exam: Present: regular rate, normal rhythm, normal heart sounds - Abdominal Exam Abdominal exam: Present: soft, normal bowel sounds. Absent: distention, tenderness, guarding, rebound - Neurological Exam Neurological exam: Present: alert - Psychiatric Psychiatric exam: Present: normal affect, normal mood - Skin Skin exam: Present: warm, dry
[2019-02-18 14:42] LABS: Alanine Aminotransferase 20 U/L (12-78); Albumin Level 2.8 gm/dL (3.4-5.0); Albumin/Globulin Ratio 0.6 (1.1-1.8); Alkaline Phosphatase 53 U/L (46-116); Anion Gap 13.3 mEq/L (5-15); Aspartate Amino Transferase 23 U/L (15-37); Bilirubin,Total 2.9 mg/dL (0.2-1.0); Blood Urea Nitrogen 34 mg/dL (7-18); Calcium 8.8 mg/dL (8.5-10.1); Carbon Dioxide 25 mmol/L (21.0-32.0); Chloride 88 mmol/L (98-107); Globulin 4.5 gm/dl (1.3-3.2); Glucose 138 mg/dL (74-106); Sodium 122 mmol/L (136-145); Total Protein,Serum 7.3 gm/dL (6.4-8.2)
[2019-02-18 14:54] LABS: Lymphocytes % 6 % (10-50); Monocytes % 7 % (2-9); Neutrophils % 79 % (42-76); Total Cells Counted 100
--- NOTE | 2019-02-18 21:34 | History & Physical Report ---
*Admission Date: 02/18/19 *Chief complaint: weakness *History of present illness: pt with progressive weakness over the last few days - he lives at [facility] in by ambulance from [facility]. Patient is a poor historian. His history is of questionable reliability. His complaint is that he feels weak. He says it is been going on for 3 weeks. He is currently denying any pain.pt was found to have infected foot pt is known diabetic and has heart dis - pt was admitted with ivf and abx and podiatry consult [facility] History I have reviewed the patient's past medical history: Yes Medical History: Reports:: Coronary Artery Disease, Cerebrovascular Accident, Diabetes Mellitus Type 1, Hyperlipidemia, Hypertension, Myocardial Infarction, Seizures Denies:: Cancer, Diabetes Mellitus Type 2, Internal Pacemaker, MRSA *Have you ever received a pneumonia vaccine?: Yes *Have you received a flu vaccine this season?: No Laterality Cases: Bilateral: Tonsillectomy Other Surgeries: Yes: Other (LHC-stents). No: Pacemaker Amputation: Yes (Left toe) Fractures: No - *Social History Smoking Status: Never smoker Alcohol Intake: never Alcohol Intake Frequency:: other Substance Use Type: denies use *Occupational Status:: disabled Housing: assisted living facility Household Members: other *Travel in the last 8 weeks: None Family Hx:: Unable to obtain Review of Systems - Review of Systems Review of systems:: pertinent systems reviewed and negative unless documented below - Constitutional Reports fever(s), Reports weakness - Eyes Denies change in vision - ENT Denies sore throat - *Cardiovascular Denies chest pain at rest - *Respiratory Denies cough, Denies shortness of breath - *Gastrointestinal Denies abdominal pain, Denies nausea, Denies vomiting - *Genitourinary Denies blood in urine - *Musculoskeletal Denies joint pain - Integumentary/Breasts Denies rash - *Neurologic Reports weakness, Denies seizure-like activity, Denies localized weakness, Denies headache(s) - Psychiatric Reports anxiety Meds Home Medications Medication Instructions Recorded Confirmed Type Nitroglycerin 0.4 mg SUBLINGUAL Q5M PRN #30 06/19/17 09/16/18 Rx tab.subl ondansetron HCl 4 mg tablet 4 mg PO Q6HP PRN tab 07/09/17 02/18/19 History Carvedilol [Coreg 6.25mg 6.25 mg PO BID 07/22/17 02/18/19 History Tablet] Insulin Aspart Prot/Insuln Asp 40 unit SQ DIRECTED 10/17/17 09/16/18 History [Novolog Mix 70/30 Flexpen 100 Units/mL 3mL] amitriptyline 10 mg tablet 10 mg PO BID tab 02/18/18 02/18/19 History insulin aspar prt-insulin aspart 50 unit SUB-Q DIRECTED #10 ml 03/13/18 09/16/18 Rx 100 unit/mL (70-30) subcutaneous soln ticagrelor 90 mg tablet 90 mg PO BID #180 tab 05/22/18 02/18/19 Rx atorvastatin 80 mg tablet 80 mg PO HS #90 tab 07/02/18 02/18/19 Rx citalopram 20 mg tablet 20 mg PO DAILY #90 tab 07/02/18 02/18/19 Rx Aspirin [Low Dose Aspirin EC] See Rx Instructions .ROUTE .COMPLEX 02/18/19 02/18/19 History Isosorbide Mononitrate [Imdur 60mg 60 mg PO QAM 02/18/19 02/18/19 History ER tablet] dilTIAZem HCl [Diltiazem 24Hr ER 120 mg PO DAILY 02/18/19 02/18/19 History (Cd)] Allergies Allergy/AdvReac Type Severity Reaction Status Date / Time morphine [MORPHINE] Allergy Severe I-ITCHING Verified 09/16/18 11:04 Exam Vital signs and Labs for Last 24 Hours: Temp Pulse Resp BP Pulse Ox 98.7 F 76 18 118/56 L 99 02/18/19 20:00 02/18/19 20:00 02/18/19 20:00 02/18/19 20:00 02/18/19 20:00 Laboratory Results - last 24 hr 02/18/19 13:55: WBC 18.1 H, RBC 3.61 L, Hgb 11.5 L, Hct 36.2 L, MCV 100.3 H, MCH 31.8 H, MCHC 31.7 L, RDW 14.5, Plt Count 195, MPV 8.6, Neut % (Auto) 84.1 H, Lymph % (Auto) 6.5 L, [place] % (Auto) 9.0, Eos % (Auto) 0.2, Baso % (Auto) 0.1, Neut # (Auto) 15.2 H, Lymph # (Auto) 1.2, [place] # (Auto) 1.6 H, Eos # (Auto) 0.0, Baso # (Auto) 0.0, Total Counted 100, Neutrophils % (Manual) 79 H, Band Neutrophils % 8.0, Lymphocytes % (Manual) 6 L, Monocytes % (Manual) 7, Platelet Estimate Normal 02/18/19 13:55: Sodium 122 L, Potassium 4.3, Chloride 88 L, Carbon Dioxide 25, Anion Gap 13.3, BUN 34 H, Creatinine 1.90 H, Estimated Creat Clear 56, Estimated GFR 36 L, Est GFR ( Amer) 44 L, Glucose 138 H, Calcium 8.8, Total Bilirubin 2.9 H, AST 23, ALT 20, Alkaline Phosphatase 53, Troponin I < 0.02, Total Protein 7.3, Albumin 2.8 L, Globulin 4.5 H, Albumin/Globulin Ratio 0.6 L 02/18/19 13:55: ESR > 140 H 02/18/19 13:55: C-Reactive Protein 18.1 H 02/18/19 14:25: Lactate 1.6 02/18/19 20:18: POC Glucose 135 H I & O for Last 24 hours: Intake & Output 02/16/19 02/17/19 02/18/19 02/19/19 11:59 11:59 11:59 11:59 Weight 214 lb 5 oz - Constitutional no acute distress, obese - *Routine HEENT Exam Head: Present: normocephalic Eye: Present: EOMI, PERRL ENT: Present: mucous membranes dry - *Routine Neck Exam Present: supple. Absent: JVD - *Routine Respiratory Exam Present: CTA bilaterally - *Routine Cardiovascular Exam Present: RRR, murmur - *Routine Abdominal Exam Present: soft - *Routine Extremities Exam Absent: calf tenderness - *Routine Skin Exam Comments: changes to lt foot sec to infection - *Routine Neurological Exam Present: alert, CN II-XII intact dec sensation to lower ext - Routine Psychiatric Exam Present: anxious Assessment and Plan (1) Diabetic foot infection Current visit: Yes Status: Acute Category: Medical Code(s): E11.628 - Type 2 diabetes mellitus with other skin complications; L08.9 - Local infection of the skin and subcutaneous tissue, unspecified (2) Obesity (BMI 30-39.9) Current visit: Yes Status: Acute Category: Medical Code(s): E66.9 - Obesity, unspecified (3) Elevated erythrocyte sedimentation rate Current visit: Yes Status: Acute Category: Medical Code(s): R70.0 - Elevated erythrocyte sedimentation rate (4) Hyponatremia Current visit: Yes Status: Acute Category: Medical Code(s): E87.1 - Hypo- osmolality and hyponatremia (5) Renal insufficiency Current visit: Yes Status: Acute Category: Medical Code(s): N28.9 - Disorder of kidney and ureter, unspecified (6) IFEOMA (acute kidney injury) Current visit: Yes Status: Acute Category: Medical Code(s): N17.9 - Acute kidney failure, unspecified (7) Diabetes mellitus Current visit: Yes Status: Acute Qualifiers: Diabetes mellitus type: type 1 Diabetes mellitus complication status: with other specified complication Qualified Code(s): E10.69 - Type 1 diabetes mellitus with other specified complication Category: Medical Code(s): E11.9 - Type 2 diabetes mellitus without complications
--- NOTE | 2019-02-19 07:47 | Pharmacy Consult Notes ---
[facility] Pharmacy VTE Monitoring - Patient Demographics Admission date: 02/18/19 Report Date: 02/19/19 Time: 07:47 Allergies/Adverse Reactions: Patient Allergies morphine [MORPHINE] Allergy (Severe, Verified 09/16/18 11:04) I-ITCHING Height: 1.68 m Weight: 99.138 kg Patient Problems: Current Active Problems Diabetic foot infection (Acute) Diabetic foot ulcer (Acute) Hyponatremia (Acute) - VTE Risk Labs: VTE Related Lab Results Hgb 11.5 g/dL (14.1-18.0) L 02/18/19 13:55 Hct 36.2 % (42.0-52.0) L 02/18/19 13:55 Plt Count 195 K/mm3 (142-424) 02/18/19 13:55 BUN 34 mg/dL (7-18) H 02/18/19 13:55 Creatinine 1.90 mg/dL (0.70-1.30) H 02/18/19 13:55 Estimated Creat Clear 56 mL/min (50-200) 02/18/19 13:55 Clinical Trial Participant: No - Prophylaxis VTE Prophylaxis Ordered?: Yes Types of VTE Prophylaxis: TEDS Knee High
[2019-02-19 07:49] LABS: Anion Gap 15.6 mEq/L (5-15); Calcium 8.9 mg/dL (8.5-10.1)
--- NOTE | 2019-02-19 07:51 | Pharmacy Consult Notes ---
- Pharmacy Consult Date: 02/19/19 Time: 07:51 Referring provider: DR. NEAL Reason for Consult:: VANCOMYCIN DOSING Allergies and ADEs:: Allergies Allergy/AdvReac Type Severity Reaction Status Date / Time morphine [MORPHINE] Allergy Severe I-ITCHING Verified 09/16/18 11:04 Home Medications:: Home Medications Medication Instructions Recorded Confirmed Type Nitroglycerin 0.4 mg SUBLINGUAL Q5M PRN #30 06/19/17 09/16/18 Rx tab.subl ondansetron HCl 4 mg tablet 4 mg PO Q6HP PRN tab 07/09/17 02/18/19 History Carvedilol [Coreg 6.25mg 6.25 mg PO BID 07/22/17 02/18/19 History Tablet] Insulin Aspart Prot/Insuln Asp 40 unit SQ DIRECTED 10/17/17 09/16/18 History [Novolog Mix 70/30 Flexpen 100 Units/mL 3mL] amitriptyline 10 mg tablet 10 mg PO BID tab 02/18/18 02/18/19 History insulin aspar prt-insulin aspart 50 unit SUB-Q DIRECTED #10 ml 03/13/18 09/16/18 Rx 100 unit/mL (70-30) subcutaneous soln ticagrelor 90 mg tablet 90 mg PO BID #180 tab 05/22/18 02/18/19 Rx atorvastatin 80 mg tablet 80 mg PO HS #90 tab 07/02/18 02/18/19 Rx citalopram 20 mg tablet 20 mg PO DAILY #90 tab 07/02/18 02/18/19 Rx Aspirin [Low Dose Aspirin EC] See Rx Instructions .ROUTE .COMPLEX 02/18/19 02/18/19 History Isosorbide Mononitrate [Imdur 60mg 60 mg PO QAM 02/18/19 02/18/19 History ER tablet] dilTIAZem HCl [Diltiazem 24Hr ER 120 mg PO DAILY 02/18/19 02/18/19 History (Cd)] Height: 1.68 m Weight: 99.138 kg Laboratory Results:: Laboratory Results - last 24 hr 02/18/19 13:55: WBC 18.1 H, RBC 3.61 L, Hgb 11.5 L, Hct 36.2 L, MCV 100.3 H, MCH 31.8 H, MCHC 31.7 L, RDW 14.5, Plt Count 195, MPV 8.6, Neut % (Auto) 84.1 H, Lymph % (Auto) 6.5 L, [place] % (Auto) 9.0, Eos % (Auto) 0.2, Baso % (Auto) 0.1, Neut # (Auto) 15.2 H, Lymph # (Auto) 1.2, [place] # (Auto) 1.6 H, Eos # (Auto) 0.0, Baso # (Auto) 0.0, Total Counted 100, Neutrophils % (Manual) 79 H, Band Neutrophils % 8.0, Lymphocytes % (Manual) 6 L, Monocytes % (Manual) 7, Platelet Estimate Normal 02/18/19 13:55: Sodium 122 L, Potassium 4.3, Chloride 88 L, Carbon Dioxide 25, Anion Gap 13.3, BUN 34 H, Creatinine 1.90 H, Estimated Creat Clear 56, Estimated GFR 36 L, Est GFR ( Amer) 44 L, Glucose 138 H, Calcium 8.8, Total Bilirubin 2.9 H, AST 23, ALT 20, Alkaline Phosphatase 53, Troponin I < 0.02, Total Protein 7.3, Albumin 2.8 L, Globulin 4.5 H, Albumin/Globulin Ratio 0.6 L 02/18/19 13:55: ESR > 140 H 02/18/19 13:55: C-Reactive Protein 18.1 H 02/18/19 14:25: Lactate 1.6 02/18/19 20:18: POC Glucose 135 H 02/19/19 06:06: POC Glucose 176 H Medical History: Reports:: Coronary Artery Disease, Cerebrovascular Accident, Diabetes Mellitus Type 1, Hyperlipidemia, Hypertension, Myocardial Infarction, Seizures Denies:: Cancer, Diabetes Mellitus Type 2, Internal Pacemaker, MRSA Assessment and Plan - Assessment and plan all Dx Assessment and Plan for all problems:: BASED ON PATIENT FACTORS, RECOMMEND VANCOMYCIN 1750 MG IV Q24H. PHARMACY WILL FOLLOW DAILY AND ADJUST APPROPRIATE.
[2019-02-19 07:56] LABS: Basophils % 0.1 % (0.1-2.0); Hematocrit 34.4 % (42.0-52.0); Lymphocytes # 1.3 K/mm3 (0.7-4.5); Lymphocytes % 8.2 % (10-50); Mean Platelet Volume 8.4 fl (7.4-10.4); Monocytes # 1.3 K/mm3 (0.1-1.0); Monocytes % 7.7 % (1.7-9.3); Neutrophils # 13.6 K/mm3 (1.8-7.8); Neutrophils % 83.9 % (37.0-80.0); Platelet Count 175 K/mm3 (142-424); Red Blood Count 3.51 M/mm3 (4.60-6.20); Red Cell Distribution Width 14.4 % (11.5-17.5); White Blood Count 16.2 K/mm3 (4.8-10.8)
--- NOTE | 2019-02-19 08:14 | Consult Report ---
*Admission Date: 02/18/19 *Reason for consult:: Left great toe ostemyelitis *History of present illness: Mr. Jain is a 59-year-old diabetic male from [facility] who presents with pain and swelling to the left great toe. Ordinarily patient states that he has little to no feeling. He states over the last 3 to 4 weeks he is noticed a wound and the big toe getting progressively bigger. He saw his PCP Dr. Alas yesterday who sent him to the hospital for admission for IV antibiotics and consult for osteomyelitis. Patient does have a history of bone infection. He had a partial left second toe amputation at [facility] several years ago. Review of Systems - Review of Systems Review of systems:: pertinent systems reviewed and negative unless documented below - Constitutional Denies chills, Denies fatigue - Eyes Denies blind spots - ENT Denies abnormal hearing - *Cardiovascular Denies chest pain, Denies shortness of breath - *Respiratory Denies chest congestion, Denies shortness of breath - *Gastrointestinal Denies abdominal pain, Denies nausea, Denies vomiting - *Genitourinary Denies difficulty urinating - *Musculoskeletal Reports joint swelling - Integumentary/Breasts Reports change in hair, Reports nail changes, Reports skin ulcer, Reports wounds - *Neurologic Reports weakness, Denies seizure-like activity, Denies localized weakness, Denies headache(s) - Hematologic/Lymphatic Denies easy bruising - Allergic/Immunologic Reports GI upset with certain foods [facility] History I have reviewed the patient's past medical history: Yes Medical History: Reports:: Coronary Artery Disease, Cerebrovascular Accident, Diabetes Mellitus Type 1, Hyperlipidemia, Hypertension, Myocardial Infarction, Seizures Denies:: Cancer, Diabetes Mellitus Type 2, Internal Pacemaker, MRSA *Have you ever received a pneumonia vaccine?: Yes *Have you received a flu vaccine this season?: No Laterality Cases: Bilateral: Tonsillectomy Other Surgeries: Yes: Other (LHC-stents). No: Pacemaker Amputation: Yes (Left toe) Fractures: No - *Social History Smoking Status: Never smoker Alcohol Intake: never Alcohol Intake Frequency:: other Substance Use Type: denies use *Occupational Status:: disabled Housing: assisted living facility Household Members: other *Travel in the last 8 weeks: None Family Hx:: Unable to obtain Meds Home Medications Medication Instructions Recorded Confirmed Type Nitroglycerin 0.4 mg SUBLINGUAL Q5M PRN #30 06/19/17 09/16/18 Rx tab.subl ondansetron HCl 4 mg tablet 4 mg PO Q6HP PRN tab 07/09/17 02/18/19 History Carvedilol [Coreg 6.25mg 6.25 mg PO BID 07/22/17 02/18/19 History Tablet] Insulin Aspart Prot/Insuln Asp 40 unit SQ DIRECTED 10/17/17 09/16/18 History [Novolog Mix 70/30 Flexpen 100 Units/mL 3mL] amitriptyline 10 mg tablet 10 mg PO BID tab 02/18/18 02/18/19 History insulin aspar prt-insulin aspart 50 unit SUB-Q DIRECTED #10 ml 03/13/18 09/16/18 Rx 100 unit/mL (70-30) subcutaneous soln ticagrelor 90 mg tablet 90 mg PO BID #180 tab 05/22/18 02/18/19 Rx atorvastatin 80 mg tablet 80 mg PO HS #90 tab 07/02/18 02/18/19 Rx citalopram 20 mg tablet 20 mg PO DAILY #90 tab 07/02/18 02/18/19 Rx Aspirin [Low Dose Aspirin EC] See Rx Instructions .ROUTE .COMPLEX 02/18/19 02/18/19 History Isosorbide Mononitrate [Imdur 60mg 60 mg PO QAM 02/18/19 02/18/19 History ER tablet] dilTIAZem HCl [Diltiazem 24Hr ER 120 mg PO DAILY 02/18/19 02/18/19 History (Cd)] Allergies Allergy/AdvReac Type Severity Reaction Status Date / Time morphine [MORPHINE] Allergy Severe I-ITCHING Verified 09/16/18 11:04 Exam Vital signs and Labs for Last 24 Hours: Temp Pulse Resp BP Pulse Ox 98.3 F 70 16 116/65 99 02/19/19 04:00 02/19/19 04:00 02/19/19 04:00 02/19/19 04:00 02/19/19 04:00 Laboratory Results - last 24 hr 02/18/19 13:55: WBC 18.1 H, RBC 3.61 L, Hgb 11.5 L, Hct 36.2 L, MCV 100.3 H, MCH 31.8 H, MCHC 31.7 L, RDW 14.5, Plt Count 195, MPV 8.6, Neut % (Auto) 84.1 H, Lymph % (Auto) 6.5 L, Grand % (Auto) 9.0, Eos % (Auto) 0.2, Baso % (Auto) 0.1, Neut # (Auto) 15.2 H, Lymph # (Auto) 1.2, Grand # (Auto) 1.6 H, Eos # (Auto) 0.0, Baso # (Auto) 0.0, Total Counted 100, Neutrophils % (Manual) 79 H, Band Neutrophils % 8.0, Lymphocytes % (Manual) 6 L, Monocytes % (Manual) 7, Platelet Estimate Normal 02/18/19 13:55: Sodium 122 L, Potassium 4.3, Chloride 88 L, Carbon Dioxide 25, Anion Gap 13.3, BUN 34 H, Creatinine 1.90 H, Estimated Creat Clear 56, Estimated GFR 36 L, Est GFR ( Amer) 44 L, Glucose 138 H, Calcium 8.8, Total Bilirubin 2.9 H, AST 23, ALT 20, Alkaline Phosphatase 53, Troponin I < 0.02, Total Protein 7.3, Albumin 2.8 L, Globulin 4.5 H, Albumin/Globulin Ratio 0.6 L 02/18/19 13:55: ESR > 140 H 02/18/19 13:55: C-Reactive Protein 18.1 H 02/18/19 14:25: Lactate 1.6 02/18/19 20:18: POC Glucose 135 H 02/19/19 06:06: POC Glucose 176 H 02/19/19 07:12: WBC 16.2 H, RBC 3.51 L, Hgb 11.0 L, Hct 34.4 L, MCV 98.0 H, MCH 31.3 H, MCHC 32.0, RDW 14.4, Plt Count 175, MPV 8.4, Neut % (Auto) 83.9 H, Lymph % (Auto) 8.2 L, Grand % (Auto) 7.7, Eos % (Auto) 0.0 L, Baso % (Auto) 0.1, Neut # (Auto) 13.6 H, Lymph # (Auto) 1.3, Grand # (Auto) 1.3 H, Eos # (Auto) 0.0, Baso # (Auto) 0.0 02/19/19 07:12: Sodium 127 L, Potassium 3.6, Chloride 94 L, Carbon Dioxide 21, Anion Gap 15.6 H, BUN 34 H, Creatinine 1.44 H D, Estimated Creat Clear 76, Estimated GFR 50 L, Est GFR ( Amer) 60 D, Glucose 167 H D, Calcium 8.9 I & O for Last 24 hours: Intake & Output 02/16/19 02/17/19 02/18/19 02/19/19 11:59 11:59 11:59 11:59 Intake Total 1231 / 1231 Output Total 400 / 400 Balance 831 / 831 Weight 218 lb 9 oz Microbiology Reports for the Last 24 Hours: Microbiology 02/18/19 14:14 Blood Blood Culture - Preliminary - Constitutional no acute distress, obese, disheveled - *Routine HEENT Exam Head: Present: normocephalic Eye: Present: PERRL - *Routine Neck Exam Present: supple - *Routine Respiratory Exam Present: accessory muscle use - *Routine Cardiovascular Exam Present: RRR - *Routine Abdominal Exam Present: soft - *Routine Rectal Exam Patient deferred: visual exam - *Routine Exam Patient deferred: penile exam - *Routine Extremities Exam Present: edema, joint swelling. Absent: pulses intact, normal capillary refill - *Routine Skin Exam Present: dry, scars, wounds, gangrene - *Routine Neurological Exam Present: alert, oriented X3, moving all extremities - Routine Psychiatric Exam Present: normal thought process - Detailed Lower Extremity Exam Foot/Toes: Left amputation (L 2nd toe), Left wound (L great toe) Top foot image: 1 - Left hallux has an ulceration noted to the distal tip. The ulcer measures approximately 2.5 x 1.5 cm. The wound base was granular with fibrotic slough. Positive purulence and malodor noted. A still pending cellulitis noted streaking up the dorsal left foot. Dry blister noted to the lateral distal hallux. Well-healed incision noted to the left second toe from previous partial amputation surgery. CFT delayed and weakly palpable PT pulse. NOn palpable left DP secondary to edema. Results - Labs Result Diagrams: 02/19/19 07:12 02/19/19 07:12 Labs: Abnormal lab results 02/18/19 02/18/19 02/18/19 Range/Units 13:55 13:55 13:55 WBC 18.1 H (4.8-10.8) K/mm3 RBC 3.61 L (4.60-6.20) M/mm3 Hgb 11.5 L (14.1-18.0) g/dL Hct 36.2 L (42.0-52.0) % MCV 100.3 H (80-94) fl MCH 31.8 H (27.0-31.2) pg MCHC 31.7 L (31.8-35.4) g/dL Neut % (Auto) 84.1 H (37.0-80.0) % Lymph % (Auto) 6.5 L (10-50) % Eos % (Auto) (0.1-12.0) % Neut # (Auto) 15.2 H (1.8-7.8) K/mm3 Grand # (Auto) 1.6 H (0.1-1.0) K/mm3 Neutrophils % (Manual) 79 H (42-76) % Lymphocytes % (Manual) 6 L (10-50) % ESR > 140 H (0-20) mm/hr Sodium 122 L (136-145) mmol/L Chloride 88 L (98-107) mmol/L Anion Gap (5-15) mEq/L BUN 34 H (7-18) mg/dL Creatinine 1.90 H (0.70-1.30) mg/dL Estimated GFR 36 L (>60) ml/min Est GFR ( Amer) 44 L (>60) ML/MIN Glucose 138 H (74-106) mg/dL POC Glucose (70-110) Total Bilirubin 2.9 H (0.2-1.0) mg/dL C-Reactive Protein (0.0-0.9) mg/dL Albumin 2.8 L (3.4-5.0) gm/dL Globulin 4.5 H (1.3-3.2) gm/dl Albumin/Globulin Ratio 0.6 L (1.1-1.8) 09/02/18/19 02/19/19 Range/Units 13:55 20:18 06:06 WBC (4.8-10.8) K/mm3 RBC (4.60-6.20) M/mm3 Hgb (14.1-18.0) g/dL Hct (42.0-52.0) % MCV (80-94) fl MCH (27.0-31.2) pg MCHC (31.8-35.4) g/dL Neut % (Auto) (37.0-80.0) % Lymph % (Auto) (10-50) % Eos % (Auto) (0.1-12.0) % Neut # (Auto) (1.8-7.8) K/mm3 Grand # (Auto) (0.1-1.0) K/mm3 Neutrophils % (Manual) (42-76) % Lymphocytes % (Manual) (10-50) % ESR (0-20) mm/hr Sodium (136-145) mmol/L Chloride (98-107) mmol/L Anion Gap (5-15) mEq/L BUN (7-18) mg/dL Creatinine (0.70-1.30) mg/dL Estimated GFR (>60) ml/min Est GFR ( Amer) (>60) ML/MIN Glucose (74-106) mg/dL POC Glucose 135 H 176 H (70-110) Total Bilirubin (0.2-1.0) mg/dL C-Reactive Protein 18.1 H (0.0-0.9) mg/dL Albumin (3.4-5.0) gm/dL Globulin (1.3-3.2) gm/dl Albumin/Globulin Ratio (1.1-1.8) 02/19/19 02/19/19 Range/Units 07:12 07:12 WBC 16.2 H (4.8-10.8) K/mm3 RBC 3.51 L (4.60-6.20) M/mm3 Hgb 11.0 L (14.1-18.0) g/dL Hct 34.4 L (42.0-52.0) % MCV 98.0 H (80-94) fl MCH 31.3 H (27.0-31.2) pg MCHC (31.8-35.4) g/dL Neut % (Auto) 83.9 H (37.0-80.0) % Lymph % (Auto) 8.2 L (10-50) % Eos % (Auto) 0.0 L (0.1-12.0) % Neut # (Auto) 13.6 H (1.8-7.8) K/mm3 Grand # (Auto) 1.3 H (0.1-1.0) K/mm3 Neutrophils % (Manual) (42-76) % Lymphocytes % (Manual) (10-50) % ESR (0-20) mm/hr Sodium 127 L (136-145) mmol/L Chloride 94 L (98-107) mmol/L Anion Gap 15.6 H (5-15) mEq/L BUN 34 H (7-18) mg/dL Creatinine 1.44 H D (0.70-1.30) mg/dL Estimated GFR 50 L (>60) ml/min Est GFR ( Amer) (>60) ML/MIN Glucose 167 H D (74-106) mg/dL POC Glucose (70-110) Total Bilirubin (0.2-1.0) mg/dL C-Reactive Protein (0.0-0.9) mg/dL Albumin (3.4-5.0) gm/dL Globulin (1.3-3.2) gm/dl Albumin/Globulin Ratio (1.1-1.8) H & H 02/18/19 02/19/19 Range/Units 13:55 07:12 Hgb 11.5 L 11.0 L (14.1-18.0) g/dL Hct 36.2 L 34.4 L (42.0-52.0) % All other labs normal. - Diagnostic results Ankle/Foot x-ray: report reviewed, image reviewed (Left distal phalanx osteomyelitis, cortical erosions noted) Assessment and Plan (1) Diabetic ulcer of left great toe Start date: 01/29/19 Current visit: Yes Status: Acute Category: Medical Code(s): E11.621 - Type 2 diabetes mellitus with foot ulcer; L97.529 - Non-pressure chronic ulcer of other part of left foot with unspecified severity (2) Osteomyelitis of great toe of left foot Current visit: Yes Status: Acute Category: Medical Code(s): M86.9 - Osteomyelitis, unspecified (3) Cellulitis of left foot Current visit: Yes Status: Acute Category: Medical Code(s): L03.116 - Cellulitis of left lower limb (4) Diabetic neuropathy Current visit: Yes Status: Acute Category: Medical Code(s): E11.40 - Type 2 diabetes mellitus with diabetic neuropathy, unspecified (5) Diabetic foot infection Current visit: Yes Status: Acute Category: Medical Code(s): E11.628 - Type 2 diabetes mellitus with other skin complications; L08.9 - Local infection of the skin and subcutaneous tissue, unspecified (6) Obesity (BMI 30-39.9) Current visit: Yes Status: Acute Category: Medical Code(s): E66.9 - Obesity, unspecified (7) Elevated erythrocyte sedimentation rate Current visit: Yes Status: Acute Category: Medical Code(s): R70.0 - Elevated erythrocyte sedimentation rate (8) Hyponatremia Current visit: Yes Status: Acute Category: Medical Code(s): E87.1 - Hypo- osmolality and hyponatremia (9) Renal insufficiency Current visit: Yes Status: Acute Category: Medical Code(s): N28.9 - Disorder of kidney and ureter, unspecified (10) IFEOMA (acute kidney injury) Current visit: Yes Status: Acute Category: Medical Code(s): N17.9 - Acute kidney failure, unspecified (11) Diabetes mellitus Current visit: Yes Status: Acute Qualifiers: Diabetes mellitus type: type 1 Diabetes mellitus complication status: with other specified complication Qualified Code(s): E10.69 - Type 1 diabetes mellitus with other specified complication Category: Medical Code(s): E11.9 - Type 2 diabetes mellitus without complica tions (12) History of partial amputation of toe Current visit: Yes Status: Acute Category: Surgical Code(s): Z89.429 - Acquired absence of other toe(s), unspecified side - Assessment and plan all Dx Assessment and Plan for all problems:: LEFT GREAT TOE DM ULCER, OSTEOMYELITIS: I discussed with the patient the importance of proper hygiene and maintaining a clean healthy wound bed to avoid the infection spreading. The wound was cleansed with betadine. Utilizing a 15 blade, the wound was sharply excisionally debrided through skin into sub q layer. Biofilm and fibrotic slough were debrided. The wound did probe thru deep fascia and into the bone. There was positive drainage and purulence noted. Malodor noted. Wound culture obtained. Talita-wound cellulitis noted. Non-palpable popliteal lymph nodes. Post- debridement the wound base was: 50% necrotic, 50% fibrotic. The wound measured 2.5 x 1.5 x 1.5 cm. 1. Dressing applied: betadine dry sterile dressing 2. Continue IV Abx 3. NPO NOW 4. Stat EKG 5. Stat ABIs (arterial ultrasound) 6. Plan for surgery today for left great toe amputation PRE-OP AMPUTATION/INFECTION: Radiographs of the left foot taken 02/18/19 were evaluated by myself. The report was noted. The images were reviewed and discussed with the patient. X-rays show cortical irregularity, erosion noted to the left distal phalanx of the great toe. We discussed conservative versus surgical treatment options. Conservative treatment options include local wound care, oral and IV anti biotics, change in shoe wear, taping/padding, and off-loading. Discussed that patient would benefit from a wider and deeper shoe wear to accommodate the deformity, recommend DM shoes for after ulcer heals. We discussed surgical intervention for amputation of the left great toe. Patient understands that there is a chance that the toes can migrate to fill the gap or the foot may change shape after surgery. Patient also understands that they could have wound healing complications including delayed healing and infection. We discussed that if the wound does not heal, it is possible that they may need a more proximal amputation and could result in further loss of digits, loss of partial foot or loss of leg. We discussed the risks and benefits in great detail. Other surgical risks include: prolonged pain and swelling, further infection requiring oral or IV antibiotics, delay in healing of soft tissue or bone, nerve or blood vessel damage, CRPS/RSD, DVT, anesthesia complications, and even . Medical clearance per PCP, Dr. Alas. Pre-op labs: ESR, CRP, Ha1c, CBC, CMP, EKG, CXR.
--- NOTE | 2019-02-19 09:46 | Progress Note ---
Internal Medicine - PN: Subj *Date: 02/19/19 *Time: 09:43 Interval history: 59-year-old male patient lying quietly in bed, reports that his foot is feeling better today podiatry is been in and is planning for surgery this afternoon. Patient is agreeable to this denies any other current needs at present Exam Vital signs and Labs for Last 24 Hours: Temp Pulse Resp BP Pulse Ox 99.7 F H 75 21 124/69 95 02/19/19 08:00 02/19/19 08:00 02/19/19 08:00 02/19/19 08:00 02/19/19 08:00 Laboratory Results - last 24 hr 02/18/19 13:55: WBC 18.1 H, RBC 3.61 L, Hgb 11.5 L, Hct 36.2 L, MCV 100.3 H, MCH 31.8 H, MCHC 31.7 L, RDW 14.5, Plt Count 195, MPV 8.6, Neut % (Auto) 84.1 H, Lymph % (Auto) 6.5 L, Scott % (Auto) 9.0, Eos % (Auto) 0.2, Baso % (Auto) 0.1, Neut # (Auto) 15.2 H, Lymph # (Auto) 1.2, Scott # (Auto) 1.6 H, Eos # (Auto) 0.0, Baso # (Auto) 0.0, Total Counted 100, Neutrophils % (Manual) 79 H, Band Neutrophils % 8.0, Lymphocytes % (Manual) 6 L, Monocytes % (Manual) 7, Platelet Estimate Normal 02/18/19 13:55: Sodium 122 L, Potassium 4.3, Chloride 88 L, Carbon Dioxide 25, Anion Gap 13.3, BUN 34 H, Creatinine 1.90 H, Estimated Creat Clear 56, Estimated GFR 36 L, Est GFR ( Amer) 44 L, Glucose 138 H, Calcium 8.8, Total Bilirubin 2.9 H, AST 23, ALT 20, Alkaline Phosphatase 53, Troponin I < 0.02, Total Protein 7.3, Albumin 2.8 L, Globulin 4.5 H, Albumin/Globulin Ratio 0.6 L 02/18/19 13:55: ESR > 140 H 02/18/19 13:55: C-Reactive Protein 18.1 H 02/18/19 14:25: Lactate 1.6 02/18/19 20:18: POC Glucose 135 H 02/19/19 06:06: POC Glucose 176 H 02/19/19 07:12: WBC 16.2 H, RBC 3.51 L, Hgb 11.0 L, Hct 34.4 L, MCV 98.0 H, MCH 31.3 H, MCHC 32.0, RDW 14.4, Plt Count 175, MPV 8.4, Neut % (Auto) 83.9 H, Lymph % (Auto) 8.2 L, Scott % (Auto) 7.7, Eos % (Auto) 0.0 L, Baso % (Auto) 0.1, Neut # (Auto) 13.6 H, Lymph # (Auto) 1.3, Scott # (Auto) 1.3 H, Eos # (Auto) 0.0, Baso # (Auto) 0.0 02/19/19 07:12: Sodium 127 L, Potassium 3.6, Chloride 94 L, Carbon Dioxide 21, Anion Gap 15.6 H, BUN 34 H, Creatinine 1.44 H D, Estimated Creat Clear 76, Estimated GFR 50 L, Est GFR ( Amer) 60 D, Glucose 167 H D, Calcium 8.9 I & O for Last 24 hours: Intake & Output 02/16/19 02/17/19 02/18/19 02/19/19 23:59 23:59 23:59 23:59 Intake Total 1471 / 1471 Output Total 150 / 150 250 / 250 Balance -150 / -150 1221 / 1221 Weight 214 lb 5 oz 218 lb 9 oz Microbiology Reports for the Last 24 Hours: Microbiology 02/18/19 14:14 Blood Blood Culture - Preliminary - Constitutional no acute distress, obese - *Routine HEENT Exam Head: Present: normocephalic Eye: Present: EOMI, PERRL, normal accommodation. Absent: conjunctival icterus, periorbital swelling ENT: Present: mucous membranes moist - *Routine Neck Exam Present: supple, full ROM. Absent: tenderness - *Routine Respiratory Exam Present: CTA bilaterally. Absent: accessory muscle use, rales - *Routine Cardiovascular Exam Present: murmur - *Routine Abdominal Exam Present: soft, normoactive bowel sounds. Absent: tenderness, firm - *Routine Extremities Exam Present: tenderness. Absent: calf tenderness - Routine Back/Spine/Pelvis Exam Back/Spine: Absent: CVA tenderness, muscle spasm - *Routine Skin Exam Present: warm, wounds Comments: Dressing to the left foot - *Routine Neurological Exam Present: alert, CN II-XII intact, hearing grossly intact. Absent: pronator drift, tremors - Routine Psychiatric Exam Present: normal affect. Absent: visual hallucinations, tactile hallucinations Assessment and Plan (1) Diabetic ulcer of left great toe Start date: 01/29/19 Current visit: Yes Status: Acute Category: Medical Code(s): E11.621 - Type 2 diabetes mellitus with foot ulcer; L97.529 - Non-pressure chronic ulcer of other part of left foot with unspecified severity (2) Osteomyelitis of great toe of left foot Current visit: Yes Status: Acute Category: Medical Code(s): M86.9 - Osteomyelitis, unspecified (3) Cellulitis of left foot Current visit: Yes Status: Acute Category: Medical Code(s): L03.116 - Cellulitis of left lower limb (4) Diabetic neuropathy Current visit: Yes Status: Acute Category: Medical Code(s): E11.40 - Type 2 diabetes mellitus with diabetic neuropathy, unspecified (5) Diabetic foot infection Current visit: Yes Status: Acute Category: Medical Code(s): E11.628 - Type 2 diabetes mellitus with other skin complications; L08.9 - Local infection of the skin and subcutaneous tissue, unspecified (6) Obesity (BMI 30-39.9) Current visit: Yes Status: Acute Category: Medical Code(s): E66.9 - Obesity, unspecified (7) Elevated erythrocyte sedimentation rate Current visit: Yes Status: Acute Category: Medical Code(s): R70.0 - Elevated erythrocyte sedimentation rate (8) Hyponatremia Current visit: Yes Status: Acute Category: Medical Code(s): E87.1 - Hypo- osmolality and hyponatremia (9) Renal insufficiency Current visit: Yes Status: Acute Category: Medical Code(s): N28.9 - Disorder of kidney and ureter, unspecified (10) IFEOMA (acute kidney injury) Current visit: Yes Status: Acute Category: Medical Code(s): N17.9 - Acute kidney failure, unspecified (11) Diabetes mellitus Current visit: Yes Status: Acute Qualifiers: Diabetes mellitus type: type 1 Diabetes mellitus complication status: with other specified complication Qualified Code(s): E10.69 - Type 1 diabetes mellitus with other specified complication Category: Medical Code(s): E11.9 - Type 2 diabetes mellitus without complications (12) History of partial amputation of toe Current visit: Yes Status: Acute Category: Surgical Code(s): Z89.429 - Acquired absence of other toe(s), unspecified side - Assessment and plan all Dx Assessment and Plan for all problems:: Rounded with Dr. Alas all orders per Dr. Alas 1. Podiatry is seen and recommends: I discussed with the patient the importance of proper hygiene and maintaining a clean healthy wound bed to avoid the infection spreading. The wound was cleansed with betadine. Utilizing a 15 blade, the wound was sharply excisionally debrided through skin into sub q layer. Biofilm and fibrotic slough were debrided. The wound did probe thru deep fascia and into the bone. There was positive drainage and purulence noted. Malodor noted. Wound culture obtained. Talita-wound cellulitis noted. Non-palpable popliteal lymph nodes. Post-debridement the wound base was: 50% necrotic, 50% fibrotic. The wound measured 2.5 x 1.5 x 1.5 cm. 1. Dressing applied: betadine dry sterile dressing 2. Continue IV Abx 3. NPO NOW 4. Stat EKG 5. Stat ABIs (arterial ultrasound) 6. Plan for surgery today for left great toe amputation (Per Dr. Flower) 2. Awaiting blood cultures
--- NOTE | 2019-02-19 09:53 | Consult Report ---
History of Present Illness Consult date: 02/19/19 Requesting physician: Junior Alas Consult reason: pre-op evaluation Chief complaint: Pre-op evaluation Additional Medical History:: 1. Coronary artery disease A. History of coronary artery stenting, per patient the last stent was in 2000 B. [facility], 04/2017, YANIQUE to distal codominate OM and PDA C. 05/2017 and 09/2017, ANGIOGRAPHIC RESULTS: 1. The left main artery normal 2. The left anterior descending artery has proximal 20% stenoses mid vessel 20% stenoses followed by an additional mid vessel stent which has diffuse 20- 30% concentric in-stent restenosis. Distal to the stent is a long tubular 60-70% stenosis which is then followed by another stent which has a mid vessel 70- 80% stenosis followed by 3 distal 80-90% stenoses. 3. The circumflex artery is a dominant vessel giving rise to a very small ramus intermedius followed by a small first obtuse marginal artery which has mid vessel 50% stenoses. The second obtuse marginal artery has an ostial 60% mid vessel 50% stenosis while the terminal obtuse marginal artery has a stent in its proximal to distal segment which is widely patent. 4. The right coronary artery is a nondominant yet still large vessel giving rise to a single distal marginal branch. Proximally there are 20-30% stenoses with mid vessel 30% stenoses. The terminal marginal branch has a stent which is widely patent free of in-stent restenosis 5. The MOTA ventriculogram reveals normal 65% 6. The left ventricular end-diastolic pressure 15 mmHg IMPRESSION: 1. Coronary artery disease as described above 2. Normal ejection fraction 3. Normal to mildly elevated LVEDP PLAN: 1. Continue medical management 2. I see nothing at this time will benefit patient from a percutaneous revascularization standpoint 3. Should patient's angina remain recalcitrant I would consider a fentanyl patch and possible evaluation by the pain clinic to assist with chronic opiate usage for improvement in quality of life 4. Risk factor modification 2. Diabetes mellitus, treated for about 10 years 3. Hypertension A. Echo, 05/2018, 1. Mildly enlarged left atrium, normal left ventricular size, mild concentric left ventricular hypertrophy, visually estimated ejection fraction 50% with no regional wall motion abnormality, grade 1 diastolic dysfunction seen with tissue Doppler evidence of raised left atrial pressure. 2. Mild aortic, mild mitral and tricuspid regurgitation 3. No significant pericardial effusion noted 4. Hyperlipidemia 5. History of CVA/seizures 6. PAD A. History of partial left foot second toe amputation in past History of present illness: 59-year-old white male with history of coronary artery disease with stents and diabetes, was sent from [facility] to the emergency department for evaluation and admission. Patient has several day history of not feeling well with evidence of infection of the left toe after reported history of a fall in the shower approximately 1 month ago. Patient is scheduled for surgical removal of the toe later today and cardiology consulted for evaluation prior to surgery. Patient has a known history of coronary artery disease with last cardiac cath September 2017 for which medical therapy has been recommended. Patient denies any recent chest pain, pressure or tightness. He has been stable on medical the [facility] History Medical History: Reports:: Coronary Artery Disease, Cerebrovascular Accident, Diabetes Mellitus Type 1, Hyperlipidemia, Hypertension, Myocardial Infarction, Seizures Denies:: Cancer, Diabetes Mellitus Type 2, Internal Pacemaker, MRSA *Have you ever received a pneumonia vaccine?: Yes *Have you received a flu vaccine this season?: No Laterality Cases: Bilateral: Tonsillectomy Other Surgeries: Yes: Other (C-stents). No: Pacemaker Amputation: Yes (Left toe) Fractures: No - *Social History Smoking Status: Never smoker Alcohol Intake: never Alcohol Intake Frequency:: other Substance Use Type: denies use *Occupational Status:: disabled Housing: assisted living facility Household Members: other *Travel in the last 8 weeks: None Family Hx:: Unable to obtain Meds Home Medications Medication Instructions Recorded Confirmed Type Nitroglycerin 0.4 mg SUBLINGUAL Q5M PRN #30 06/19/17 09/16/18 Rx tab.subl ondansetron HCl 4 mg tablet 4 mg PO Q6HP PRN tab 07/09/17 02/18/19 History Carvedilol [Coreg 6.25mg 6.25 mg PO BID 07/22/17 02/18/19 History Tablet] Insulin Aspart Prot/Insuln Asp 40 unit SQ DIRECTED 10/17/17 09/16/18 History [Novolog Mix 70/30 Flexpen 100 Units/mL 3mL] amitriptyline 10 mg tablet 10 mg PO BID tab 02/18/18 02/18/19 History insulin aspar prt-insulin aspart 50 unit SUB-Q DIRECTED #10 ml 03/13/18 09/16/18 Rx 100 unit/mL (70-30) subcutaneous soln ticagrelor 90 mg tablet 90 mg PO BID #180 tab 05/22/18 02/18/19 Rx atorvastatin 80 mg tablet 80 mg PO HS #90 tab 07/02/18 02/18/19 Rx citalopram 20 mg tablet 20 mg PO DAILY #90 tab 07/02/18 02/18/19 Rx Aspirin [Low Dose Aspirin EC] See Rx Instructions .ROUTE .COMPLEX 02/18/19 02/18/19 History Isosorbide Mononitrate [Imdur 60mg 60 mg PO QAM 02/18/19 02/18/19 History ER tablet] dilTIAZem HCl [Diltiazem 24Hr ER 120 mg PO DAILY 02/18/19 02/18/19 History (Cd)] Allergies Allergy/AdvReac Type Severity Reaction Status Date / Time morphine [MORPHINE] Allergy Severe I-ITCHING Verified 09/16/18 11:04 Review of Systems - Constitutional Reports malaise, Reports weakness - *Cardiovascular Reports shortness of breath with activity, Denies chest pain - *Respiratory Reports shortness of breath with activity, Denies cough - *Gastrointestinal Denies abdominal pain, Denies vomiting - *Genitourinary Denies blood in urine - *Musculoskeletal Reports joint pain, Reports back pain - *Neurologic Reports weakness, Denies abnormal hearing, Denies seizure-like activity, Denies localized weakness, Denies headache(s) Exam Vital signs and Labs for Last 24 Hours: Temp Pulse Resp BP Pulse Ox 99.7 F H 75 21 124/69 95 02/19/19 08:00 02/19/19 08:00 02/19/19 08:00 02/19/19 08:00 02/19/19 08:00 Laboratory Results - last 24 hr 02/18/19 13:55: WBC 18.1 H, RBC 3.61 L, Hgb 11.5 L, Hct 36.2 L, MCV 100.3 H, MCH 31.8 H, MCHC 31.7 L, RDW 14.5, Plt Count 195, MPV 8.6, Neut % (Auto) 84.1 H, Lymph % (Auto) 6.5 L, [place] % (Auto) 9.0, Eos % (Auto) 0.2, Baso % (Auto) 0.1, Neut # (Auto) 15.2 H, Lymph # (Auto) 1.2, [place] # (Auto) 1.6 H, Eos # (Auto) 0.0, Baso # (Auto) 0.0, Total Counted 100, Neutrophils % (Manual) 79 H, Band Neutrophils % 8.0, Lymphocytes % (Manual) 6 L, Monocytes % (Manual) 7, Platelet Estimate Normal 02/18/19 13:55: Sodium 122 L, Potassium 4.3, Chloride 88 L, Carbon Dioxide 25, Anion Gap 13.3, BUN 34 H, Creatinine 1.90 H, Estimated Creat Clear 56, Estimated GFR 36 L, Est GFR ( Amer) 44 L, Glucose 138 H, Calcium 8.8, Total Mathew irubin 2.9 H, AST 23, ALT 20, Alkaline Phosphatase 53, Troponin I < 0.02, Total Protein 7.3, Albumin 2.8 L, Globulin 4.5 H, Albumin/Globulin Ratio 0.6 L 02/18/19 13:55: ESR > 140 H 02/18/19 13:55: C-Reactive Protein 18.1 H 02/18/19 14:25: Lactate 1.6 02/18/19 20:18: POC Glucose 135 H 02/19/19 06:06: POC Glucose 176 H 02/19/19 07:12: WBC 16.2 H, RBC 3.51 L, Hgb 11.0 L, Hct 34.4 L, MCV 98.0 H, MCH 31.3 H, MCHC 32.0, RDW 14.4, Plt Count 175, MPV 8.4, Neut % (Auto) 83.9 H, Lymph % (Auto) 8.2 L, [place] % (Auto) 7.7, Eos % (Auto) 0.0 L, Baso % (Auto) 0.1, Neut # (Auto) 13.6 H, Lymph # (Auto) 1.3, [place] # (Auto) 1.3 H, Eos # (Auto) 0.0, Baso # (Auto) 0.0 02/19/19 07:12: Sodium 127 L, Potassium 3.6, Chloride 94 L, Carbon Dioxide 21, Anion Gap 15.6 H, BUN 34 H, Creatinine 1.44 H D, Estimated Creat Clear 76, Estimated GFR 50 L, Est GFR ( Amer) 60 D, Glucose 167 H D, Calcium 8.9 I & O for Last 24 hours: Intake & Output 02/16/19 02/17/19 02/18/19 02/19/19 11:59 11:59 11:59 11:59 Intake Total 1471 / 1471 Output Total 400 / 400 Balance 1071 / 1071 Weight 218 lb 9 oz Microbiology Reports for the Last 24 Hours: Microbiology 02/18/19 14:14 Blood Blood Culture - Preliminary - *Routine HEENT Exam Head: Present: normocephalic Eye: Present: EOMI, PERRL ENT: Present: mucous membranes moist - *Routine Neck Exam Present: supple. Absent: JVD, carotid bruit - *Routine Respiratory Exam Present: CTA bilaterally. Absent: accessory muscle use, rales, rhonchi, wheezes - *Routine Cardiovascular Exam Present: RRR. Absent: murmur, gallop, rubs - *Routine Abdominal Exam Present: soft. Absent: tenderness, distended, guarding - *Routine Extremities Exam Absent: edema, calf tenderness - *Routine Neurological Exam Present: alert, oriented X3, moving all extremities Assessment and Plan (1) Diabetic ulcer of left great toe Start date: 01/29/19 Current visit: Yes Status: Acute Category: Medical Code(s): E11.621 - Type 2 diabetes mellitus with foot ulcer; L97.529 - Non-pressure chronic ulcer of other part of left foot with unspecified severity (2) Osteomyelitis of great toe of left foot Current visit: Yes Status: Acute Category: Medical Code(s): M86.9 - Osteomyelitis, unspecified (3) Cellulitis of left foot Current visit: Yes Status: Acute Category: Medical Code(s): L03.116 - Cellulitis of left lower limb (4) Diabetic neuropathy Current visit: Yes Status: Acute Category: Medical Code(s): E11.40 - Type 2 diabetes mellitus with diabetic neuropathy, unspecified (5) Diabetic foot infection Current visit: Yes Status: Acute Category: Medical Code(s): E11.628 - Type 2 diabetes mellitus with other skin complications; L08.9 - Local infection of the skin and subcutaneous tissue, unspecified (6) Obesity (BMI 30-39.9) Current visit: Yes Status: Acute Category: Medical Code(s): E66.9 - Obesity, unspecified (7) Elevated erythrocyte sedimentation rate Current visit: Yes Status: Acute Category: Medical Code(s): R70.0 - Elevated erythrocyte sedimentation rate (8) Hyponatremia Current visit: Yes Status: Acute Category: Medical Code(s): E87.1 - Hypo- osmolality and hyponatremia (9) Renal insufficiency Current visit: Yes Status: Acute Category: Medical Code(s): N28.9 - Disorder of kidney and ureter, unspecified (10) IFEOMA (acute kidney injury) Current visit: Yes Status: Acute Category: Medical Code(s): N17.9 - Acute kidney failure, unspecified (11) Diabetes mellitus Current visit: Yes Status: Acute Qualifiers: Diabetes mellitus type: type 1 Diabetes mellitus complication status: with other specified complication Qualified Code(s): E10.69 - Type 1 diabetes mellitus with other specified complication Category: Medical Code(s): E11.9 - Type 2 diabetes mellitus without complications (12) History of partial amputation of toe Current visit: Yes Status: Acute Category: Surgical Code(s): Z89.429 - Acquired absence of other toe(s), unspecified side - Assessment and plan all Dx Assessment and Plan for all problems:: 1. Clinically stable from a cardiac standpoint to proceed with orthopedic surgery as planned. Will obtain echo to ensure EF is still normal (echo in 05/2018 shows LVEF of 50% with LVH). 2. Continue aspirin, carvedilol and diltiazem perioperatively. 3. Consider bilateral lower extremity runoff in the future if wound healing is delayed. MARITA this admission is normal.
[2019-02-19 10:03] LABS: Lymphocytes % 8 % (10-50); Monocytes % 7 % (2-9); Neutrophils % 82 % (42-76); Total Cells Counted 100
--- NOTE | 2019-02-19 15:44 | Cardiology Report ---
APPROVED REPORT EXAM: Comprehensive 2D, Doppler, and color-flow Echocardiogram [employer]: Aleah Newberry RT(R) Ht: 5 ft 6 in Wt: 218lbs BSA: 2.07 BP: 124/69 mmHg Indications: CVA/TIA, Diabetes, CAD, Hyperlipidemia, Hypertension/HDD, Pre-Op 2D Dimensions Aortic Root 2.40 cm M: 3.1 - 3.7 Left Atrium 3.20 cm M: 3.0 - 4.0 LVOT 2.00 cm (M/F) 1.5-2.5 M-Mode Dimensions RVDd 3.50 cm (0.9-2.6)LA Diam 4.10 cm (1.9-4.0) LVDd 5.30 cm (3.5-5.7)Ao Diam 3.70 cm (2.0-3.7) LVDs 3.60 cm (3.5-5.7)AV Cusp 2.30 cm (1.5-2.6) IVSd 0.90 cm (0.6-1.1)PWd 0.90 cm (0.6-1.1) EF (Teich) 59.70% FS 32.10% EDV (Teich) 135.00 mLESV (Teich) 54.40 mL LV Diastology E/A Ratio 1.0MED E' 10.60 (< 7 cm/sec) E'/MED E' Ratio10.90 (>14)LAT E' 10.50 (<10 cm/sec) E/LAT E' Ratio 11.00 (>14) Mitral Valve MV E Max Melchor. 116.00 (40-130 cm/s)MV A Velocity 116.00 (40-130 cm/s) E/A Ratio 1.00 Left Ventricle Left atrium is mildly enlarged, left ventricle is normal size, mild concentric left ventricular hypertrophy, visually estimated ejection fraction of 55% with no regional wall motion abnormality. Grade 1 diastolic dysfunction seen without tissue Doppler evidence of raise left atrial pressure. Right Ventricle Right atrium and right ventricle are mildly enlarged with normal contractility. Aortic Valve Aortic valve is minimally thickened and fibrosed. There is no aortic stenosis aortic insufficiency. Mitral Valve Mitral valve leaflets are minimally thickened, there is no mitral stenosis. There is mild mitral regurgitation. Tricuspid Valve Tricuspid valve is grossly normal, there is mild tricuspid regurgitation. Pulmonic Valve Pulmonic valve is poorly visualized. Great Vessels Aortic root is normal size. Pericardium No significant pericardial effusion noted Conclusion 1. Mildly enlarged left atrium, normal left ventricular size, mild concentric left ventricular hypertrophy, visually estimated ejection fraction 55% with no regional wall motion abnormality, grade 1 diastolic dysfunction seen without tissue Doppler evidence of raise left atrial pressure. 2. Mildly enlarged right ventricle with normal contractility. 3. Mild mitral and tricuspid regurgitation 4. No significant pericardial effusion noted. Electronically signed by : Star Motley, 02/19/2019 15:44:18
--- NOTE | 2019-02-19 16:51 | Operative Note ---
Date of procedure: 02/19/19 Pre-op Diagnosis:: 1. Left DM great toe ulcer 2. Left great toe osteomyelitis 3. Right sub 1st metatarsal callus Post-op Diagnosis:: Same Procedure performed:: 1. Left hallux partial amputation 2. Left hallux incision and drainage 3. Right sub 1st metatarsal callus debridement Surgeon:: Darleen Flower DPM PARADI TENDER:: Ag Walker Anesthesia: local (10cc 0.5% marcaine plain), LMA Estimated blood loss (mL): 20 Clinical Note:: PRE-OP AMPUTATION/INFECTION: Radiographs of the left foot taken 02/18/19 were evaluated by myself. The report was noted. The images were reviewed and discussed with the patient. X-rays show cortical irregularity, erosion noted to the left distal phalanx of the great toe. We discussed conservative versus surgical treatment options. Conservative treatment options include local wound care, oral and IV antibiotics, change in shoe wear, taping/padding, and off-loading. Discussed that patient would benefit from a wider and deeper shoe wear to accommodate the deformity, recommend DM shoes for after ulcer heals. We discussed surgical intervention for amputation of the left great toe. Patient understands that there is a chance that the toes can migrate to fill the gap or the foot may change shape after surgery. Patient also understands that they could have wound healing complications including delayed healing and infection. We discussed that if the wound does not heal, it is possible that they may need a more proximal amputation and could result in further loss of digits, loss of partial foot or loss of leg. We discussed the risks and benefits in great detail. Other surgical risks include: prolonged pain and swelling, further infection requiring oral or IV antibiotics, delay in healing of soft tissue or bone, nerve or blood vessel damage, CRPS/RSD, DVT, anesthesia complications, and even . Medical clearance per PCP, Dr. Alas. Pre-op labs: ESR, CRP, Ha1c, CBC, CMP, EKG, CXR. Operative findings:: Right sub-first metatarsal callus with no underlying ulceration or signs of infection noted. Left hallux distal tip diabetic ulcer with purulence noted. Ulcer necrotic and probe to bone. Left hallux distal phalanx osteo. The bone was soft with malodor noted. Purulence did not track to the proximal phalanx. Proximal phalanx cortical head intact with no signs of erosions or infection. Operative note:: On this date and time patient was deemed an appropriate surgical candidate. With informed consent signed, the patient was taken to the operating theater. The patient was positioned supine. LMA anesthesia was induced. No tourniquet used. Pre-op left hallux toe block given with 10 cc 0.5% marcaine plain. Left hallux irrigation and debridement, partial digit amputation: The left lower extremity was prepped and drapped in normal sterile fashion. Attention was directed to the left right toe where a dorsal ulcer was noted over the toe tip. Feels was necrotic and probe to the bone. Intra-operatively, no purulence expressed. A fish mouth incision was mapped out. Utilizing a 15 blade dissection was carried down sharply to the level of the bone around the distal phalanx which was disarticulated from the proximal phalanx. The distal phalanx bone was soft and crumbly and had a slight malodor to it. Portion of it was cut and sent for bone culture and the other part was sent for bone biopsy for pathology. Attention was then directed to the proximal phalanx. The head was intact, not discolored and had no cortical erosions noted. The proximal phalanx was left intact as there were no obvious signs of osteomyelitis. Next 3 L of bacitracin irrigation was used to flush the wound with pulse lavage. The wound was reexplored and no further signs of infection noted. Bleeding controlled. The vessels were ligated with electrocautery as needed, but minimal blood loss. 3-0 Prolene was used to close skin in an interrupted simple suture fashion. The wounds were cleansed. Betadine, dry sterile dressing was then applied to the left foot. Right sub 1st metatarsal callus debridement: Attention was then directed to the right foot. Betadine was used to prep the foot in standard fashion. Callus (x 1) was debrided with a number 15 blade without incident. No underlying ulcer. No signs of infection to the right foot. Betadine dry sterile dressing was applied to the right foot. The patient was awoken from anesthesia and transferred to recovery with vital signs stable and neurovascular status intact. Materials: 3-0 Prolene Discharge/Plan: Transfer back to the floor. Patient is to maintain dressing clean dry and intact. Continue antibiotics. Partial weight bearing to the left lower extremity with post op shoe/fracture boot and DME assistance (walker, wheelchair). Obtain post op films, left foot, 3 views. Plan for dressing change tomorrow by myself. Tourniquet time (min): 0 Condition: stable Disposition: floor Specimens:: 1. Left hallux distal phalanx bone culture 2. Left hallux distal phalanx bone path 3. Left hallux toe gross path Complications:: None
--- NOTE | 2019-02-19 16:59 | Progress Note ---
[facility] Anesthesia Checklist - Patient Identification Patient Identification: Arm Band, Verbal (Name & ) - Structural Data Admitted From: Inpatient Planned Operative Procedure/s: Left great toe amputation Consent for Planned Operative Procedure(s) Verified: Yes Verified Documents: Surgical Consent, History and Physical, Cardiac Clearance - NPO Status Verified Time NPO: 08:00 - Chart Verification Results Verified: CBC, BMP - Additional verifications Fingerstick Blood Glucose: 118 Anesthesia Reactions: No - Airway Assessment C-Spine Mobility Assessed: Yes TMJ Mobility Assessed: Yes Dentition: Poor Dentition - Neurological Assessment Level of Consciousness: Awake, Alert, Follows Commands, Inappropriate Hx Seizures: Yes Numbness or tingling in extremities: Yes - Anesthesia Plan Anesthesia Risk discussed: Yes Anesthesia Plan: Verified ASA Class: III Anesthesia Type: General [facility] History I have reviewed the patient's past medical history: Yes Medical History: Reports:: Asthma, Coronary Artery Disease, Cerebrovascular Accident, Diabetes Mellitus Type 1, Hyperlipidemia, Hypertension, Myocardial Infarction, Seizures Denies:: Cancer, Diabetes Mellitus Type 2, Internal Pacemaker, MRSA *Have you ever received a pneumonia vaccine?: Yes *Have you received a flu vaccine this season?: No Comment:: obesity Anesthesia experience/problems:: no complications Laterality Cases: Bilateral: Tonsillectomy Other Surgeries: Yes: Other (LHC-stents). No: Pacemaker Amputation: Yes (Left toe) Fractures: No - *Social History Smoking Status: Never smoker Alcohol Intake: never Alcohol Intake Frequency:: other Substance Use Type: denies use *Occupational Status:: disabled Housing: assisted living facility Household Members: other *Travel in the last 8 weeks: None Family Hx:: Unable to obtain
--- NOTE | 2019-02-19 16:59 | Progress Note ---
[facility] Anesthesia Record Part I Intake, IV Amount: 70 Estimated blood loss (mL): 10 Urine output (mL): 0 Blood Products used (#): none Blood Pressure: 120/61 SaO2: 96 Pulse Rate: 83 Respiratory Rate: 16 Temperature: 99.1 F Patient is:: Awake, Drowsy, Nasal O2, Stable Stable to PACU at:: 16:53
--- NOTE | 2019-02-19 17:00 | Progress Note ---
[facility] Anesthesia Record Part II Discharge Time: 17:23 Destination: Medical Surgical Department PACU nurse assessment reviewed?: Yes Patient Condition:: Good Anesthesia Complications:: None Swallowing reflex intact?: Yes Cyanosis?: No
[2019-02-20 07:19] LABS: Eosinophils # 0.1 K/mm3 (0.0-0.4); Eosinophils % 0.5 % (0.1-12.0); Monocytes # 1.1 K/mm3 (0.1-1.0); Neutrophils # 10.9 K/mm3 (1.8-7.8); White Blood Count 13.4 K/mm3 (4.8-10.8)
[2019-02-20 07:38] LABS: Albumin Level 2.1 gm/dL (3.4-5.0); Albumin/Globulin Ratio 0.5 (1.1-1.8); Anion Gap 11.8 mEq/L (5-15); Bilirubin,Total 1.2 mg/dL (0.2-1.0); Calcium 8.4 mg/dL (8.5-10.1); Globulin 4.2 gm/dl (1.3-3.2); Total Protein,Serum 6.3 gm/dL (6.4-8.2)
[2019-02-20 07:41] LABS: Basophils % 0.3 % (0.1-2.0); Hematocrit 29.9 % (42.0-52.0); Lymphocytes # 1.3 K/mm3 (0.7-4.5); Lymphocytes % 9.8 % (10-50); Mean Corpuscular HGB Conc 30.7 g/dL (31.8-35.4); Mean Corpuscular Volume 100.7 fl (80-94); Mean Platelet Volume 8.4 fl (7.4-10.4); Monocytes % 8.2 % (1.7-9.3); Neutrophils % 81.3 % (37.0-80.0); Platelet Count 162 K/mm3 (142-424); Red Blood Count 2.97 M/mm3 (4.60-6.20); Red Cell Distribution Width 14.6 % (11.5-17.5)
[2019-02-20 07:51] LABS: Hemoglobin 9.2 g/dL (14.1-18.0)
--- NOTE | 2019-02-20 08:58 | Progress Note ---
Subjective Date: 02/20/19 Time: 08:56 Interval history: 59-year-old white male in bed in no acute distress. Left foot dressing being applied. Patient denies any chest pain, pressure or tightness. Echocardiogram from yesterday shows normal ejection fraction with no significant valvular heart disease. Patient tolerated surgery without problems. Exam Vital signs and Labs for Last 24 Hours: Temp Pulse Resp BP Pulse Ox 97.6 F 76 20 128/70 100 02/20/19 08:00 02/20/19 08:00 02/20/19 08:00 02/20/19 08:00 02/20/19 08:00 Laboratory Results - last 24 hr 02/19/19 07:12: Total Counted 100, Neutrophils % (Manual) 82 H, Band Neutrophils % 3.0, Lymphocytes % (Manual) 8 L, Monocytes % (Manual) 7, Platelet Estimate Normal 02/19/19 11:22: POC Glucose 115 H 02/19/19 15:47: POC Glucose 118 H 02/19/19 17:38: POC Glucose 103 02/19/19 20:20: POC Glucose 209 H 02/20/19 05:12: POC Glucose 118 H 02/20/19 06:48: WBC 13.4 H, RBC 2.97 L, Hgb 9.2 L D, Hct 29.9 L, MCV 100.7 H, MCH 31.0, MCHC 30.7 L, RDW 14.6, Plt Count 162, MPV 8.4, Neut % (Auto) 81.3 H, Lymph % (Auto) 9.8 L, [place] % (Auto) 8.2, Eos % (Auto) 0.5, Baso % (Auto) 0.3, Neut # (Auto) 10.9 H, Lymph # (Auto) 1.3, [place] # (Auto) 1.1 H, Eos # (Auto) 0.1, Baso # (Auto) 0.0 02/20/19 06:48: Sodium 132 L, Potassium 3.8, Chloride 98, Carbon Dioxide 26 D, Anion Gap 11.8, BUN 20 H D, Creatinine 0.88 D, Estimated Creat Clear 111, Est imated GFR 88, Est GFR ( Amer) 107 D, Glucose 132 H D, Calcium 8.4 L, Total Bilirubin 1.2 H, AST 24, ALT 16, Alkaline Phosphatase 59, Total Protein 6.3 L, Albumin 2.1 L, Globulin 4.2 H, Albumin/Globulin Ratio 0.5 L I & O for Last 24 hours: Intake & Output 02/17/19 02/18/19 02/19/19 02/20/19 11:59 11:59 11:59 11:59 Intake Total 1471 / 1471 1529 / 1529 Output Total 400 / 400 1900 / 1900 Balance 1071 / 1071 -371 / -371 Weight 218 lb 9 oz 223 lb 1 oz Microbiology Reports for the Last 24 Hours: Microbiology 02/19/19 07:45 Toe,Left Great Gram Stain - Final 02/19/19 07:45 Toe,Left Great Wound Culture - Preliminary 02/18/19 14:14 Blood Blood Culture - Preliminary 02/18/19 14:14 Blood Blood Culture - Preliminary - *Routine Respiratory Exam Present: CTA bilaterally. Absent: accessory muscle use, rales, rhonchi, wheezes - *Routine Cardiovascular Exam Present: RRR. Absent: murmur, gallop, rubs - *Routine Extremities Exam Absent: edema, calf tenderness Comments: Erythematous rash noted over the [place] and lateral area of the left ankle and dorsum of the foot. - *Routine Neurological Exam Present: alert, oriented X3, moving all extremities Progress Note: A&P (1) Diabetic ulcer of left great toe Status: Acute Current Visit: Yes (2) Osteomyelitis of great toe of left foot Status: Acute Current Visit: Yes (3) Cellulitis of left foot Status: Acute Current Visit: Yes (4) Diabetic neuropathy Status: Acute Current Visit: Yes (5) Diabetic foot infection Status: Acute Current Visit: Yes (6) Obesity (BMI 30-39.9) Status: Acute Current Visit: Yes (7) Elevated erythrocyte sedimentation rate Status: Acute Current Visit: Yes (8) Hyponatremia Status: Acute Current Visit: Yes (9) Renal insufficiency Status: Acute Current Visit: Yes (10) IFEOMA (acute kidney injury) Status: Acute Current Visit: Yes (11) Diabetes mellitus Status: Acute Current Visit: Yes (12) History of partial amputation of toe Status: Acute Current Visit: Yes Assessment and Plan for All Diagnoses:: 1. Cardiac status stable. Resume home medications including aspirin, Brilinta, Imdur, diltiazem, atorvastatin and carvedilol. 2. We will follow as needed.
--- NOTE | 2019-02-20 09:45 | Electrocardiograph Report ---
APPROVED REPORT Exam: Resting ECG HR:74 bpm ECG Measurements Heart Rate 74 AXES OR 156 P 0 QRSd 82 QRS 16 QT 366 T40 QTc 406 <Conclusion> Normal sinus rhythm Normal ECG Electronically signed by : Yonis Aceves, 02/20/2019 09:45:01
--- NOTE | 2019-02-20 10:50 | Progress Note ---
Subjective Date: 02/20/19 Time: 10:47 Principal diagnosis: Left hallux OM Interval history: Mr. Campbell is a 59-year-old male from [facility] who was admitted 02/18/2019 for evaluation of left toe cellulitis and osteomyelitis. He underwent surgery yesterday and is stable this morning. He denies nausea/vomiting, fever/chills, shortness of breath or chest pain. PN: Obj Ex Vital signs: Temp Pulse Resp BP Pulse Ox 97.6 F 76 20 128/70 100 02/20/19 08:00 02/20/19 08:00 02/20/19 08:00 02/20/19 08:00 02/20/19 08:00 - Constitutional no acute distress - Routine HEENT Exam Head: Present: normocephalic - Routine Neck Exam Present: supple - Routine Respiratory Exam Present: accessory muscle use - Routine Cardiovascular Exam Present: RRR - Routine Abdominal Exam Present: soft - Routine Rectal Exam Patient deferred: visual exam - Routine Exam Patient deferred: penile exam - Routine Extremities Exam Present: edema, amputation. Absent: calf tenderness, tenderness - Detailed Lower Extremity Exam Comments: Dressings clean dry and intact to both feet. Left foot surgical site has sutures clean dry and intact to the hallux amputation. Cellulitis improving. No pain to palpation. No calf or thigh pain noted bilaterally. Motor function intact. Light touch sensation at baseline. - Routine Skin Exam Present: dry, wounds - Routine Neurological Exam Present: moving all extremities Progress Note: A&P (1) Diabetic ulcer of left great toe Status: Acute Current Visit: Yes (2) Osteomyelitis of great toe of left foot Status: Acute Current Visit: Yes (3) Cellulitis of left foot Status: Acute Current Visit: Yes (4) Diabetic neuropathy Status: Acute Current Visit: Yes (5) Diabetic foot infection Status: Acute Current Visit: Yes (6) Obesity (BMI 30-39.9) Status: Acute Current Visit: Yes (7) Elevated erythrocyte sedimentation rate Status: Acute Current Visit: Yes (8) Hyponatremia Status: Acute Current Visit: Yes (9) Renal insufficiency Status: Acute Current Visit: Yes (10) IFEOMA (acute kidney injury) Status: Acute Current Visit: Yes (11) Diabetes mellitus Status: Acute Current Visit: Yes (12) History of partial amputation of toe Status: Acute Current Visit: Yes Assessment and Plan for All Diagnoses:: Surgery: 02/19/19, POD #1 S/P: Left hallux irrigation and debridement, partial digit amputation S/P: Right sub 1st metatarsal callus debridement Bilateral foot dressings changed at the bedside today. Surgical site looks stable with no new signs of infection. Awaiting bone cultures, continue IV antibiotics. 1. Daily nursing dressing changes with betadine DSD -betadine soaked 4x4, dry 4x4, lo/kerlix, [place] 2. WB to right foot 3. NWB to the left lower extremity with post op shoe/fracture boot and DME assistance (walker). Ok to put weight to left heel in boot for transitions 4. Continue IV Abx x 6 weeks, PICC 5. Stable from Podiatry stand point for d/c 6. Follow up in 1 week for POV outpatient
--- NOTE | 2019-02-20 12:27 | Progress Note ---
Internal Medicine - PN: Subj *Date: 02/21/19 *Time: 07:04 Interval history: doing better at this time - s/p surg Exam Vital signs and Labs for Last 24 Hours: Temp Pulse Resp BP Pulse Ox 98.4 F 78 18 124/65 97 02/20/19 11:44 02/20/19 11:44 02/20/19 11:44 02/20/19 11:44 02/20/19 11:44 Laboratory Results - last 24 hr 02/19/19 15:47: POC Glucose 118 H 02/19/19 17:38: POC Glucose 103 02/19/19 20:20: POC Glucose 209 H 02/20/19 05:12: POC Glucose 118 H 02/20/19 06:48: WBC 13.4 H, RBC 2.97 L, Hgb 9.2 L D, Hct 29.9 L, MCV 100.7 H, MCH 31.0, MCHC 30.7 L, RDW 14.6, Plt Count 162, MPV 8.4, Neut % (Auto) 81.3 H, Lymph % (Auto) 9.8 L, [place] % (Auto) 8.2, Eos % (Auto) 0.5, Baso % (Auto) 0.3, Neut # (Auto) 10.9 H, Lymph # (Auto) 1.3, [place] # (Auto) 1.1 H, Eos # (Auto) 0.1, Baso # (Auto) 0.0 02/20/19 06:48: Sodium 132 L, Potassium 3.8, Chloride 98, Carbon Dioxide 26 D, Anion Gap 11.8, BUN 20 H D, Creatinine 0.88 D, Estimated Creat Clear 111, Estimated GFR 88, Est GFR ( Amer) 107 D, Glucose 132 H D, Calcium 8.4 L, Total Bilirubin 1.2 H, AST 24, ALT 16, Alkaline Phosphatase 59, Total Protein 6.3 L, Albumin 2.1 L, Globulin 4.2 H, Albumin/Globulin Ratio 0.5 L I & O for Last 24 hours: Intake & Output 02/18/19 02/19/19 02/20/19 02/21/19 11:59 11:59 11:59 11:59 Intake Total 1471 / 1471 1909 / 1909 Output Total 400 / 400 1900 / 1900 Balance 1071 / 1071 Weight 218 lb 9 oz 223 lb 0.984 oz Microbiology Reports for the Last 24 Hours: Microbiology 02/19/19 07:45 Toe,Left Great Gram Stain - Final 02/19/19 07:45 Toe,Left Great Wound Culture - Preliminary 02/18/19 14:14 Blood Blood Culture - Preliminary 02/18/19 14:14 Blood Blood Culture - Preliminary - Constitutional no acute distress, obese - *Routine HEENT Exam Head: Present: normocephalic Eye: Present: EOMI, PERRL ENT: Present: mucous membranes dry - *Routine Neck Exam Present: supple - *Routine Respiratory Exam Present: CTA bilaterally - *Routine Cardiovascular Exam Present: RRR, murmur - *Routine Abdominal Exam Present: soft - *Routine Extremities Exam Comments: s/p amputations - *Routine Skin Exam Present: intact - *Routine Neurological Exam Present: alert, oriented X3, CN II-XII intact - Routine Psychiatric Exam Present: unable to assess Assessment and Plan (1) Diabetic ulcer of left great toe Start date: 01/29/19 Current visit: Yes Status: Acute Category: Medical Code(s): E11.621 - Type 2 diabetes mellitus with foot ulcer; L97.529 - Non-pressure chronic ulcer of other part of left foot with unspecified severity (2) Osteomyelitis of great toe of left foot Current visit: Yes Status: Acute Category: Medical Code(s): M86.9 - Osteomyelitis, unspecified (3) Cellulitis of left foot Current visit: Yes Status: Acute Category: Medical Code(s): L03.116 - Cellulitis of left lower limb (4) Diabetic neuropathy Current visit: Yes Status: Acute Category: Medical Code(s): E11.40 - Type 2 diabetes mellitus with diabetic neuropathy, unspecified (5) Diabetic foot infection Current visit: Yes Status: Acute Category: Medical Code(s): E11.628 - Type 2 diabetes mellitus with other skin complications; L08.9 - Local infection of the skin and subcutaneous tissue, unspecified (6) Obesity (BMI 30-39.9) Current visit: Yes Status: Acute Category: Medical Code(s): E66.9 - Obesity, unspecified (7) Elevated erythrocyte sedimentation rate Current visit: Yes Status: Acute Category: Medical Code(s): R70.0 - Elevated erythrocyte sedimentation rate (8) Hyponatremia Current visit: Yes Status: Acute Category: Medical Code(s): E87.1 - Hypo- osmolality and hyponatremia (9) Renal insufficiency Current visit: Yes Status: Acute Category: Medical Code(s): N28.9 - Disorder of kidney and ureter, unspecified (10) IFEOMA (acute kidney injury) Current visit: Yes Status: Acute Category: Medical Code(s): N17.9 - Acute kidney failure, unspecified (11) Diabetes mellitus Current visit: Yes Status: Acute Qualifiers: Diabetes mellitus type: type 1 Diabetes mellitus complication status: with other specified complication Qualified Code(s): E10.69 - Type 1 diabetes mellitus with other specified complication Category: Medical Code(s): E11.9 - Type 2 diabetes mellitus without complications (12) History of partial amputation of toe Current visit: Yes Status: Acute Category: Surgical Code(s): Z89.429 - Acquired absence of other toe(s), unspecified side (13) Bacteremia Current visit: Yes Status: Acute Category: Medical Code(s): R78.81 - Bacteremia
--- NOTE | 2019-02-21 09:43 | Discharge Summary ---
General - General Admission date:: 02/18/19 Discharge date: 02/21/19 HPI HPI: pt with progressive weakness over the last few days - he lives at [facility] in by ambulance from [facility]. Patient is a poor historian. His history is of questionable reliability. His complaint is that he feels weak. He says it is been going on for 3 weeks. He is currently denying any pain.pt was found to have infected foot pt is known diabetic and has heart dis - pt was admitted with ivf and abx and podiatry consult Hospital Course Hospital Course: pt was seen by podiatry and had amputation and will require iv abx for 6 weeks EFT GREAT TOE DM ULCER, OSTEOMYELITIS: I discussed with the patient the importance of proper hygiene and maintaining a clean healthy wound bed to avoid the infection spreading. The wound was cleansed with betadine. Utilizing a 15 blade, the wound was sharply excisionally debrided through skin into sub q layer. Biofilm and fibrotic slough were debrided. The wound did probe thru deep fascia and into the bone. There was positive drainage and purulence noted. Malodor noted. Wound culture obtained. Talita-wound cellulitis noted. Non-palpable popliteal lymph nodes. Post-debridement the wound base was: 50% necrotic, 50% fibrotic. The wound measured 2.5 x 1.5 x 1.5 cm. 1. Dressing applied: betadine dry sterile dressing 2. Continue IV Abx 3. NPO NOW 4. Stat EKG 5. Stat ABIs (arterial ultrasound) 6. Plan for surgery today for left great toe amputation PRE-OP AMPUTATION/INFECTION: Radiographs of the left foot taken 02/18/19 were evaluated by myself. The report was noted. The images were reviewed and discussed with the patient. X-rays show cortical irregularity, erosion noted to the left distal phalanx of the great toe. We discussed conservative versus surgical treatment options. Conservative treatment options include local wound care, oral and IV antibiotics, change in shoe wear, taping/padding, and off-loading. Discussed that patient would benefit from a wider and deeper shoe wear to accommodate the deformity, recommend DM shoes for after ulcer heals. We discussed surgical intervention for amputation of the left great toe. Patient understands that there is a chance that the toes can migrate to fill the gap or the foot may change shape after surgery. Patient also understands that they could have wound healing complications including delayed healing and infection. We discussed that if the wound does not heal, it is possible that they may need a more proximal amputation and could result in further loss of digits, loss of partial foot or loss of leg. We discussed the risks and benefits in great detail. Other surgical risks include: prolonged pain and swelling, further infection requiring oral or IV antibiotics, delay in healing of soft tissue or bone, nerve or blood vessel damage, CRPS/RSD, DVT, anesthesia complications, and even . Medical clearance per PCP, Dr. Alas. Pre-op labs: ESR, CRP, Ha1c, CBC, CMP, EKG, CXR. oronary artery disease A. History of coronary artery stenting, per patient the last stent was in 2000 B. [facility], 04/2017, YANIQUE to distal codominate OM and PDA C. 05/2017 and 09/2017, ANGIOGRAPHIC RESULTS: 1. The left main artery normal 2. The left anterior descending artery has proximal 20% stenoses mid vessel 20% stenoses followed by an additional mid vessel stent which has diffuse 20- 30% concentric in-stent restenosis. Distal to the stent is a long tubular 60-70% stenosis which is then followed by another stent which has a mid vessel 70- 80% stenosis followed by 3 distal 80-90% stenoses. 3. The circumflex artery is a dominant vessel giving rise to a very small ramus intermedius followed by a small first obtuse marginal artery which has mid vessel 50% stenoses. The second obtuse marginal artery has an ostial 60% mid vessel 50% stenosis while the terminal obtuse marginal artery has a stent in its proximal to distal segment which is widely patent. 4. The right coronary artery is a nondominant yet still large vessel giving rise to a single distal marginal branch. Proximally there are 20-30% stenoses with mid vessel 30% stenoses. The terminal marginal branch has a stent which is widely patent free of in-stent restenosis 5. The MOTA ventriculogram reveals normal 65% 6. The left ventricular end-diastolic pressure 15 mmHg IMPRESSION: 1. Coronary artery disease as described above 2. Normal ejection fraction 3. Normal to mildly elevated LVEDP PLAN: 1. Continue medical management 2. I see nothing at this time will benefit patient from a percutaneous revascularization standpoint 3. Should patient's angina remain recalcitrant I would consider a fentanyl patch and possible evaluation by the pain clinic to assist with chronic opiate usage for improvement in quality of life 4. Risk factor modification 2. Diabetes mellitus, treated for about 10 years 3. Hypertension A. Echo, 05/2018, 1. Mildly enlarged left atrium, normal left ventricular size, mild concentric left ventricular hypertrophy, visually estimated ejection fraction 50% with no regional wall motion abnormality, grade 1 diastolic dysfunction seen with tissue Doppler evidence of raised left atrial pressure. 2. Mild aortic, mild mitral and tricuspid regurgitation 3. No significant pericardial effusion noted 4. Hyperlipidemia story of CVA/seizures 6. PAD A. History of partial left foot second toe amputation in past History of present illness: 59-year-old white male with history of coronary artery disease with stents and diabetes, was sent from [facility] to the emergency department for evaluation and admission. Patient has several day history of not feeling well with evidence of infection of the left toe after reported history of a fall in the shower approximately 1 month ago. Patient is scheduled for surgical removal of the toe later today and cardiology consulted for evaluation prior to surgery. Patient has a known history of coronary artery disease with last cardiac cath September 2017 for which medical therapy has been recommended. Patient denies any recent chest pain, pressure or tightness. He has been stable on medical therapy. ight sub-first metatarsal callus with no underlying ulceration or signs of infection noted. Left hallux distal tip diabetic ulcer with purulence noted. Ulcer necrotic and probe to bone. Left hallux distal phalanx osteo. The bone was soft with malodor noted. Purulence did not track to the proximal phalanx. Proximal phalanx cortical head intact with no signs of erosions or infection. Operative note:: On this date and time patient was deemed an appropriate surgical candidate. With informed consent signed, the patient was taken to the operating theater. The patient was positioned supine. LMA anesthesia was induced. No tourniquet used. Pre-op left hallux toe block given with 10 cc 0.5% marcaine plain. Left hallux irrigation and debridement, partial digit amputation: The left lower extremity was prepped and drapped in normal sterile fashion. Attention was directed to the left right toe where a dorsal ulcer was noted over the toe tip. Feels was necrotic and probe to the bone. Intra-operatively, no purulence expressed. A fish mouth incision was mapped out. Utilizing a 15 blade dissection was carried down sharply to the level of the bone around the distal phalanx which was disarticulated from the proximal phalanx. The distal phalanx bone was soft and crumbly and had a slight malodor to it. Portion of it was cut and sent for bone culture and the other part was sent for bone biopsy for pathology. Attention was then directed to the proximal phalanx. The head was intact, not discolored and had no cortical erosions noted. The proximal phalanx was left intact as there were no obvious signs of osteomyelitis. Next 3 L of bacitracin irrigation was used to flush the wound with pulse lavage. The wound was reexplored and no further signs of infection noted. Bleeding controlled. The vessels were ligated with electrocautery as needed, but minimal blood loss. 3-0 Prolene was used to close skin in an interrupted simple suture fashion. The wounds were cleansed. Betadine, dry sterile dressing was then applied to the left foot. Right sub 1st metatarsal callus debridement: Attention was then directed to the right foot. Betadine was used to prep the foot in standard fashion. Callus (x 1) was debrided with a number 15 blade without incident. No underlying ulcer. No signs of infection to the right foot. Betadine dry sterile dressing was applied to the right foot. The patient was awoken from anesthesia and transferred to recovery with vital signs stable and neurovascular status intact. Materials: 3-0 Prolene Discharge/Plan: Transfer back to the floor. Patient is to maintain dressing clean dry and intact. Continue antibiotics. Partial weight bearing to the left lower extremity with post op shoe/fracture boot and DME assistance (walker, wheelchair). Obtain post op films, left foot, 3 views. Plan for dressing change tomorrow by myself. Tourniquet time (min): 0 Condition: stable Disposition: floor Specimens:: 1. Left hallux distal phalanx bone culture 2. Left hallux distal phalanx bone path 3. Left hallux toe gross path will go to [facility] for iv abx rgery: 02/19/19, POD #1 S/P: Left hallux irrigation and debridement, partial digit amputation S/P: Right sub 1st metatarsal callus debridement Bilateral foot dressings changed at the bedside today. Surgical site looks stable with no new signs of infection. Awaiting bone cultures, continue IV antibiotics. 1. Daily nursing dressing changes with betadine DSD -betadine soaked 4x4, dry 4x4, lo/kerlix, Jose Luis 2. WB to right foot 3. NWB to the left lower extremity with post op shoe/fracture boot and DME assistance (walker). Ok to put weight to left heel in boot for transitions 4. Continue IV Abx x 6 weeks, PICC 5. Stable from Podiatry stand point for d/c 6. Follow up in 1 week for POV outpatient Objective Vital signs: Temp Pulse Resp BP Pulse Ox 98.5 F 76 18 134/57 L 95 02/21/19 07:34 02/21/19 07:34 02/21/19 07:34 02/21/19 07:34 02/21/19 07:34 no acute distress, obese - *Routine HEENT Exam Head: Present: normocephalic Eye: Present: EOMI, PERRL ENT: Present: mucous membranes dry - *Routine Neck Exam Present: supple - *Routine Respiratory Exam Present: CTA bilaterally - *Routine Cardiovascular Exam Present: RRR, murmur, S4 - *Routine Abdominal Exam Present: soft - *Routine Extremities Exam Comments: s/p amputation - *Routine Skin Exam Comments: s/p amputation - *Routine Neurological Exam Present: alert, CN II-XII intact - Routine Psychiatric Exam Present: normal affect Results Labs on day of discharge: Labs from last 24 hours 02/21/19 02/20/19 02/20/19 06:01 21:03 16:30 POC Glucose 107 79 85 02/20/19 11:55 POC Glucose 117 H Preliminary micro results at discharge 02/19/19 07:45 Wound Culture - Preliminary Toe,Left Great Gram Positive Cocci 02/19/19 Unknown Surgical Biopsy Culture - Preliminary Toe,Left Great NO GROWTH AFTER 24 HOURS 02/18/19 14:14 Blood Culture - Preliminary Blood 02/18/19 14:14 Blood Culture - Preliminary Blood DS: Diagnosis - Discharge Diagnosis (1) Diabetic ulcer of left great toe Status: Acute (2) Osteomyelitis of great toe of left foot Status: Acute (3) Cellulitis of left foot Status: Acute (4) Diabetic neuropathy Status: Acute (5) Diabetic foot infection Status: Acute (6) Obesity (BMI 30-39.9) Status: Acute (7) Elevated erythrocyte sedimentation rate Status: Acute (8) Hyponatremia Status: Acute (9) Renal insufficiency Status: Acute (10) IFEOMA (acute kidney injury) Status: Acute (11) Diabetes mellitus Status: Acute (12) History of partial amputation of toe Status: Acute (13) Bacteremia Status: Acute Discharge Plan - Patient Discharge Instructions ACTIVITY: Continue current activity DIET: continue same diet Patient Instructions: Diabetic Foot Ulcer, DI for Diabetic Foot Ulcer, Surgical Site Infection - Follow up Plan Disposition: [facility] Home Medications: Home Medications Medication Instructions Recorded Confirmed Type Nitroglycerin 0.4 mg SUBLINGUAL Q5M PRN #30 06/19/17 02/19/19 Rx tab.subl ondansetron HCl 4 mg tablet 4 mg PO Q6HP PRN tab 07/09/17 02/18/19 History Carvedilol [Coreg 6.25mg 6.25 mg PO BID 07/22/17 02/18/19 History Tablet] Insulin Aspart Prot/Insuln Asp 40 unit SQ 0700 10/17/17 02/19/19 History [Novolog Mix 70/30 Flexpen 100 Units/mL 3mL] amitriptyline 10 mg tablet 10 mg PO HS tab 02/18/18 02/19/19 History ticagrelor 90 mg tablet 90 mg PO BID #180 tab 05/22/18 02/18/19 Rx atorvastatin 80 mg tablet 80 mg PO HS #90 tab 07/02/18 02/18/19 Rx citalopram 20 mg tablet 20 mg PO DAILY #90 tab 07/02/18 02/18/19 Rx Aspirin [Low Dose Aspirin EC] 81 mg PO DAILY 02/18/19 02/19/19 History Isosorbide Mononitrate [Imdur 60mg 60 mg PO DAILY 02/18/19 02/19/19 History ER tablet] dilTIAZem HCl [Diltiazem 24Hr ER 120 mg PO DAILY 02/18/19 02/18/19 History (Cd)] Albuterol Sulfate [Albuterol 2 puffs IH Q4HP PRN 02/19/19 02/19/19 History Sulfate Hfa] Fluticasone/Vilanterol [Breo 1 inh IH DAILY 02/19/19 02/19/19 History Ellipta 100-25 Mcg INH] Icosapent Ethyl [Vascepa] 1 gm PO BID 02/19/19 02/19/19 History Insulin Aspart Prot/Insuln Asp 30 unit SQ 1630 02/19/19 02/19/19 History [Novolog Mix 70/30 Flexpen 100 Units/mL 3mL] Lisinopril [Zestril 5mg 5 mg PO DAILY 02/19/19 02/19/19 History Tablet] Ranolazine [Ranolazine ER] 1,000 mg PO BID 02/19/19 02/19/19 History buPROPion HCl [Bupropion Xl] 150 mg PO DAILY 02/19/19 02/19/19 History hydroCHLOROthiazide [HCTZ 25mg 25 mg PO DAILY 02/19/19 02/19/19 History tab] Prescriptions/Medication Reconciliation: New Atorvastatin Calcium [Lipitor 40mg Tablet] 80 mg PO HS tablet Carvedilol [Coreg 6.25mg Tablet] 6.25 mg PO BID tablet dilTIAZem HCl [Cardizem CD 120mg Cap] 120 mg PO DAILY cap.er.24h Isosorbide Mononitrate [Imdur 60mg ER tablet] 60 mg PO DAILY tab.er.24h Ticagrelor [Brilinta 90mg Tablet] 90 mg PO BID tablet Aspirin [Aspirin 81mg chewable tab] 81 mg PO DAILY tab.chew Continued ondansetron HCl 4 mg tablet 4 mg PO Q6HP PRN tab PRN Reason: Nausea ticagrelor 90 mg tablet 90 mg PO BID #180 tab atorvastatin 80 mg tablet 80 mg PO HS #90 tab amitriptyline 10 mg tablet 10 mg PO HS tab citalopram 20 mg tablet 20 mg PO DAILY #90 tab Carvedilol [Coreg 6.25mg Tablet] 6.25 mg PO BID Insulin Aspart Prot/Insuln Asp [Novolog Mix 70/30 Flexpen 100 Units/mL 3mL] 40 unit SQ 0700 Isosorbide Mononitrate [Imdur 60mg ER tablet] 60 mg PO DAILY dilTIAZem HCl [Diltiazem 24Hr ER (Cd)] 120 mg PO DAILY Aspirin [Low Dose Aspirin EC] 81 mg PO DAILY Lisinopril [Zestril 5mg Tablet] 5 mg PO DAILY hydroCHLOROthiazide [HCTZ 25mg tab] 25 mg PO DAILY buPROPion HCl [Bupropion Xl] 150 mg PO DAILY Ranolazine [Ranolazine ER] 1,000 mg PO BID Fluticasone/Vilanterol [Breo Ellipta 100-25 Mcg INH] 1 inh IH DAILY Insulin Aspart Prot/Insuln Asp [Novolog Mix 70/30 Flexpen 100 Units/mL 3mL] 30 unit SQ 1630 Albuterol Sulfate [Albuterol Sulfate Hfa] 2 puffs IH Q4HP PRN PRN Reason: SOB/WHEEZING Icosapent Ethyl [Vascepa] 1 gm PO BID Discontinued Nitroglycerin 0.4 mg SUBLINGUAL Q5M PRN #30 tab.subl PRN Reason: Angina - Problem Reconciliation Problems Reviewed?: Yes
[2019-02-21 10:10] LABS: Anion Gap 12.9 mEq/L (5-15); Calcium 8.1 mg/dL (8.5-10.1)
== END 2019-02-21 13:26 | DRG 617 ==
LOC: ER 13:40 → 2ND 16:45
PROVIDERS: ADMIT Emergency Medicine; ATTEND Emergency Medicine
CPT/HCPCS: 36415; 36569; 71010; 71045; 73630; 80048; 80053; 80202; 82962; 83605; 84484; 85007; 85025; 85651; 86140; 87040; 87070; 87075; 87077; 87186; 87205; 88305; 88311; 93005; 93306; 93923; 96365; 96366; 99284; C1751; J2405; J3370

== ENCOUNTER → 2019-02-25 15:14 | Outpatient (CLI) | payer MEDICARE, BC, SELFPAY ==
[2019-02-25 16:42] LABS: Vancomycin,Trough 19.3 mcg/ml (10.0-20.0)
== END ==
PROVIDERS: Visit Provider Emergency Medicine
DX: L03.116 Cellulitis of left lower limb (principal); Z51.81 Encounter for therapeutic drug level monitoring
CPT/HCPCS: 80202

== ENCOUNTER → 2019-03-02 12:23 | Outpatient (CLI) | payer MEDICARE, BC, SELFPAY ==
[2019-03-02 14:40] LABS: Vancomycin,Trough 20.5 mcg/ml (10.0-20.0)
[2019-03-02 23:33] LABS: Vancomycin,Trough 19.4 mcg/ml (10.0-20.0)
[2019-03-03 14:19] LABS: Anion Gap 15.2 mEq/L (5-15); Blood Urea Nitrogen 12 mg/dL (7-18); Calcium 7.8 mg/dL (8.5-10.1); Carbon Dioxide 25 mmol/L (21.0-32.0); Chloride 100 mmol/L (98-107); Estimated Glomerular Filt Rate 76 ml/min (>60); GFR (African American) 92 ML/MIN (>60); Glucose 102 mg/dL (74-106); Potassium 4.2 mmoL/L (3.5-5.1); Sodium 136 mmol/L (136-145)
== END ==
PROVIDERS: Visit Provider Emergency Medicine
DX: Z51.81 Encounter for therapeutic drug level monitoring (principal)
CPT/HCPCS: 80048; 80202

== ENCOUNTER → 2019-03-14 11:09 | Outpatient (CLI) | payer MEDICARE, BC, SELFPAY ==
[2019-03-14 12:49] LABS: Blood Urea Nitrogen 15 mg/dL (7-18); Calcium 9.3 mg/dL (8.5-10.1); Carbon Dioxide 29 mmol/L (21.0-32.0); Chloride 99 mmol/L (98-107); Creatinine,Serum 0.99 mg/dL (0.70-1.30); Estimated Glomerular Filt Rate 77 ml/min (>60); GFR (African American) 93 ML/MIN (>60); Glucose 117 mg/dL (74-106); Sodium 138 mmol/L (136-145); Vancomycin,Trough 18.5 mcg/ml (10.0-20.0)
== END ==
PROVIDERS: Visit Provider Emergency Medicine
DX: Z51.81 Encounter for therapeutic drug level monitoring (principal)
CPT/HCPCS: 36415; 80048; 80202

== ENCOUNTER → 2019-03-19 14:33 | Outpatient (CLI) | payer MEDICARE, BC, SELFPAY ==
[2019-03-20 14:14] LABS: C-Reactive Protein < 0.2 mg/dL (0.0-0.9)
[2019-03-20 14:15] LABS: Basophils # 0.1 K/mm3 (0-0.2); Basophils % 0.6 % (0.1-2.0); Eosinophils # 0.5 K/mm3 (0.0-0.4); Eosinophils % 4.8 % (0.1-12.0); Hematocrit 39.6 % (42.0-52.0); Hemoglobin 12.4 g/dL (14.1-18.0); Lymphocytes # 1.9 K/mm3 (0.7-4.5); Lymphocytes % 19.1 % (10-50); Mean Corpuscular HGB Conc 31.4 g/dL (31.8-35.4); Mean Corpuscular Volume 105.3 fl (80-94); Mean Platelet Volume 10.1 fl (7.4-10.4); Monocytes # 0.9 K/mm3 (0.1-1.0); Monocytes % 8.6 % (1.7-9.3); Neutrophils # 6.6 K/mm3 (1.8-7.8); Neutrophils % 66.9 % (37.0-80.0); Platelet Count 196 K/mm3 (142-424); Red Blood Count 3.76 M/mm3 (4.60-6.20); Red Cell Distribution Width 14.4 % (11.5-17.5); White Blood Count 9.9 K/mm3 (4.8-10.8)
== END ==
PROVIDERS: Visit Provider Podiatrist
DX: E11.8 Type 2 diabetes mellitus with unspecified complications (principal); Z98.890 Other specified postprocedural states; Z79.4 Long term (current) use of insulin
CPT/HCPCS: 36415; 85025; 86140

== ENCOUNTER → 2019-04-20 10:40 | Outpatient (CLI) | payer MEDICARE, BC, SELFPAY ==
[2019-04-20 11:31] LABS: Basophils % 0.5 % (0.1-2.0); Eosinophils # 0.1 K/mm3 (0.0-0.4); Eosinophils % 1.8 % (0.1-12.0); Hematocrit 39.9 % (42.0-52.0); Hemoglobin 13.2 g/dL (14.1-18.0); Lymphocytes # 1.7 K/mm3 (0.7-4.5); Lymphocytes % 21.5 % (10-50); Mean Corpuscular Hemoglobin 32.6 pg (27.0-31.2); Mean Corpuscular Volume 98.8 fl (80-94); Mean Platelet Volume 8.9 fl (7.4-10.4); Monocytes # 0.7 K/mm3 (0.1-1.0); Monocytes % 8.8 % (1.7-9.3); Neutrophils # 5.5 K/mm3 (1.8-7.8); Neutrophils % 67.5 % (37.0-80.0); Platelet Count 164 K/mm3 (142-424); Red Blood Count 4.04 M/mm3 (4.60-6.20); Red Cell Distribution Width 14.1 % (11.5-17.5); White Blood Count 8.1 K/mm3 (4.8-10.8)
[2019-04-20 12:42] LABS: Alanine Aminotransferase 37 U/L (12-78); Albumin Level 3.6 gm/dL (3.4-5.0); Albumin/Globulin Ratio 0.9 (1.1-1.8); Alkaline Phosphatase 76 U/L (46-116); Anion Gap 11.2 mEq/L (5-15); Aspartate Amino Transferase 32 U/L (15-37); Blood Urea Nitrogen 18 mg/dL (7-18); Calcium 8.6 mg/dL (8.5-10.1); Carbon Dioxide 29 mmol/L (21.0-32.0); Chloride 100 mmol/L (98-107); Estimated Glomerular Filt Rate 68 ml/min (>60); GFR (African American) 82 ML/MIN (>60); Globulin 3.8 gm/dl (1.3-3.2); Glucose 141 mg/dL (74-106); Potassium 4.2 mmoL/L (3.5-5.1); Sodium 136 mmol/L (136-145); Total Protein,Serum 7.4 gm/dL (6.4-8.2)
[2019-04-20 12:46] LABS: C-Reactive Protein < 0.2 mg/dL (0.0-0.9)
[2019-04-20 14:01] LABS: Erythrocyte Sedimentation Rate 25 mm/hr (0-20)
== END ==
PROVIDERS: Visit Provider Nurse Practitioner
DX: Z98.890 Other specified postprocedural states (principal); R07.9 Chest pain, unspecified; M86.9 Osteomyelitis, unspecified; L03.116 Cellulitis of left lower limb
CPT/HCPCS: 36415; 80053; 85025; 85651; 86140

== ENCOUNTER 2019-04-28 14:00 | Outpatient (CLI) | payer MEDICARE, BC, SELFPAY ==
--- NOTE | 2019-04-28 14:08 | CA_ITS ---
APPROVED REPORT Left Lower Extremity Venous Study for DVT. Biologist: Ana Rosa Hilton RVT Indications Lower Extremity Edema: Left Redness Lt lower extremity Vein Imaging CFV (L): compressive, spontaneous, phasic, augmentation FEM (L): compressive, spontaneous, phasic, augmentation POP (L): compressive, spontaneous, phasic, augmentation PTV (L): Compressible GSV (L): Compressible Peroneals (L):Compressible GAS (L): Compressible Conclusion Study is negative for DVT left lower extremity. Study is negative for SVT left lower extremity. There is a 4.2 cm lymph node left groin. Electronically signed by : Adam Hughes MD 04/29/2019 19:13:24
[2019-04-28 16:53] VITALS: BP 98/46; PULSE 87; RESP 18; TEMP 38.8; O2SAT 91
[2019-04-28 17:10] VITALS: BP 103/44; PULSE 82; RESP 18; TEMP 38.5; O2SAT 92
[2019-04-28 17:22] LABS: POC Glucose,Bedside 111 (70-110)
--- NOTE | 2019-04-28 17:34 | PC.NURSE ---
04/28/19. report called to lacey wall rn in er per nina alicea. updated report of pt condition given. pt escorted to er via [facility] and placed in [facility] for evaluation. er staff assumed care of the pt at this time. aftab brown.
== END 2019-04-28 17:10 | disposition still patient (30) ==
LOC: RAD 14:05 → INF 16:31
PROVIDERS: PCP Emergency Medicine; Visit Provider Emergency Medicine
DX: M79.605 Pain in left leg (principal)
CPT/HCPCS: 82962; 93971; 96365; 96366; J3370

== ENCOUNTER 2019-04-28 17:14 | Inpatient (IN) ==
[2019-04-28 18:03] LABS: Basophils % 0.1 % (0.1-2.0); Hematocrit 33.2 % (42.0-52.0); Lymphocytes # 0.9 K/mm3 (0.7-4.5); Lymphocytes % 6.6 % (10-50); Mean Corpuscular HGB Conc 33.6 g/dL (31.8-35.4); Mean Corpuscular Volume 95.4 fl (80-94); Mean Platelet Volume 9.1 fl (7.4-10.4); Monocytes # 0.8 K/mm3 (0.1-1.0); Monocytes % 5.5 % (1.7-9.3); Neutrophils # 11.9 K/mm3 (1.8-7.8); Neutrophils % 87.7 % (37.0-80.0); Platelet Count 125 K/mm3 (142-424); Red Blood Count 3.48 M/mm3 (4.60-6.20); Red Cell Distribution Width 14.1 % (11.5-17.5); White Blood Count 13.6 K/mm3 (4.8-10.8)
[2019-04-28 18:04] LABS: Hemoglobin 11.2 g/dL (14.1-18.0)
[2019-04-28 18:07] LABS: Albumin Level 2.7 gm/dL (3.4-5.0); Albumin/Globulin Ratio 0.7 (1.1-1.8); Anion Gap 13.6 mEq/L (5-15); Globulin 4.1 gm/dl (1.3-3.2); Total Protein,Serum 6.8 gm/dL (6.4-8.2)
[2019-04-28 18:11] LABS: Calcium 7.7 mg/dL (8.5-10.1)
[2019-04-28 18:13] LABS: Lymphocytes % 11 % (10-50); Monocytes % 5 % (2-9); Neutrophils % 77 % (42-76); RBC Morphology Normal; Total Cells Counted 100
[2019-04-28 18:33] LABS: C-Reactive Protein 22.5 mg/dL (0.0-0.9)
--- NOTE | 2019-04-28 19:48 | Emergency Department Note ---
ED Disposition Clinical Impression: SIRS (systemic inflammatory response syndrome), Osteomyelitis of great toe of left foot, Cellulitis of left lower leg Fever Qualifiers: Fever type: unspecified Qualified Code(s): R50.9 - Fever, unspecified Disposition: Admitted As Inpatient Condition on Discharge: Fair - Critical Care Critical Care Time: No Attestation: On 04/28/19, the high probability of a clinically significant, sudden or life threatening deterioration of the following system(s) required my full and direct attention, intervention and personal management. The time I documented below is in addition to time spent performing reported procedures but includes the following listed in this critical care notation. Medical Decision Making - Russell Inquiry Pt receiving controlled substance: Yes Russell was queried for this patient: No Risks and benefits of using a controlled substance: were not discussed with pt by me Vital Signs: 04/28/19 17:30 04/28/19 17:58 04/28/19 19:15 Temperature 99.8 F H 103 F H Temperature Source Oral Oral Pulse Rate [Right] 83 79 Respiratory Rate 18 Blood Pressure [Right Arm] 128/63 104/45 L Blood Pressure Mean [Right Arm] 84 64 Blood Pressure Source [Right Arm] Automatic Cuff Blood Pressure Position [Right Arm] Sitting 02 Sat by Pulse Oximetry 98 93 L Oxygen Delivery Method Room Air 04/28/19 19:54 04/28/19 20:05 Temperature 100.5 F H Temperature Source Oral Pulse Rate [Right] 103 H Respiratory Rate 18 Blood Pressure [Right Arm] 137/59 L Blood Pressure Mean [Right Arm] 85 Blood Pressure Source [Right Arm] Automatic Cuff Blood Pressure Position [Right Arm] Left Lateral 02 Sat by Pulse Oximetry 93 L Oxygen Delivery Method Room Air - Lab Data Lab results reviewed: Yes: I reviewed the patient's lab results. Lab Results 04/28/19 17:45: WBC 13.6 H D, RBC 3.48 L, Hgb 11.2 L D, Hct 33.2 L, MCV 95.4 H, MCH 32.0 H, MCHC 33.6, RDW 14.1, Plt Count 125 L D, MPV 9.1, Neut % (Auto) 87.7 H, Lymph % (Auto) 6.6 L, [place] % (Auto) 5.5, Eos % (Auto) 0.0 L, Baso % (Auto) 0.1, Neut # (Auto) 11.9 H, Lymph # (Auto) 0.9, [place] # (Auto) 0.8, Eos # (Auto) 0.0, Baso # (Auto) 0.0, Total Counted 100, Neutrophils % (Manual) 77 H, Band Neutrophils % 7.0, Lymphocytes % (Manual) 11, Monocytes % (Manual) 5, Platelet Estimate Normal, RBC Morphology Normal 04/28/19 17:45: Sodium 128 L, Potassium 3.6, Chloride 93 L, Carbon Dioxide 25, Anion Gap 13.6, BUN 20 H, Creatinine 1.45 H, Estimated Creat Clear 79, Estimated GFR 49 L, Est GFR ( Amer) 60, Glucose 159 H D, Calcium 7.7 L D, Total Bilirubin 2.0 H, AST 62 H D, ALT 59 D, Alkaline Phosphatase 39 L, C-Reactive Protein 22.5 H, Total Protein 6.8, Albumin 2.7 L D, Globulin 4.1 H, Albumin/Globulin Ratio 0.7 L 04/28/19 17:45: Lactate 1.8 04/28/19 17:45: ESR 117 H 04/28/19 19:05: Influenza Type A Ag Negative, Influenza Type B Ag Negative Result diagrams: 04/28/19 17:45 04/28/19 17:45 Orders (Tests/Meds): ED MEDICATIONS Generic Name Dose Route Start Last Admin Trade Name Freq PRN Reason Stop Dose Admin Sodium Chloride 1,000 mls @ 999 mls/hr 04/28/19 17:45 04/28/19 18:54 Sod Chlor 0.9% 1000ml Bag IV 04/28/19 18:45 999 mls/hr .Q1H1M MED Administration Discontinued Medications Generic Name Dose Route Start Last Admin Trade Name Freq PRN Reason Stop Dose Admin Acetaminophen 1,000 mg 04/28/19 19:10 04/28/19 19:16 Tylenol 500mg Tablet PO 04/28/19 19:11 1,000 mg ONCE ONE Administration ORDERS Category Date Time Status Blood Culture Stat Micro 04/28/19 17:40 Received - Physician Consults Physician Consulted: Dr. Aceves Time: 19:45 Reason -: Admission Comment/Response: Discussed with Dr. Aceves, the on-call hospitalist regarding the patient and plan to get the patient admitted to the floor. Plan to start the patient on vancomycin and Rocephin at this time. Fever HPI - General Chief Complaint: Fever Stated Complaint: fever Time Seen by Provider: 04/28/19 18:00 Mode of Arrival: Wheelchair Limitations: No Limitations Description of Symptoms (Recalled from ER Triage Doc. by RN): Pt sent from outpatient infusion for lethargy, fever, and redness going from his toe up his thigh. - History of Present Illness HPI Narrative: 59-year-old male was referred from the outpatient clinic for having fever and using redness and swelling of the left leg and left to area for which he was getting antibiotics through the IV on the outpatient clinic. He states he has been getting sicker and weaker. Patient was in the emergency department yesterday for IV antibiotics for the infection on the greater toe left. The left foot and the toe is more swollen today than yesterday. It is increasingly red and erythematous as well as warm to touch according to the nurses who had seen him yesterday. Patient has a history of osteomyelitis. He has been on antibiotics for the same. He was out of his antibiotics for a few weeks and the infection had started again. Has history of diabetes, hypertension, congestive heart failure. MD complaint: fever, weakness Onset (ago): day(s) (2) Temperature Source: oral - Related Data Home Medications Medication Instructions Recorded Confirmed Insulin Aspart Prot/Insuln Asp 40 unit SQ 0700 10/17/17 04/28/19 [Novolog Mix 70/30 Flexpen 100 Units/mL 3mL] amitriptyline 10 mg tablet 10 mg PO HS tab 02/18/18 04/28/19 dilTIAZem HCl [Diltiazem 24Hr ER 120 mg PO DAILY 02/18/19 04/28/19 (Cd)] Albuterol Sulfate [Albuterol 2 puffs IH Q4HP PRN 02/19/19 04/28/19 Sulfate Hfa] Icosapent Ethyl [Vascepa] 1 gm PO BID 02/19/19 04/28/19 Insulin Aspart Prot/Insuln Asp 30 unit SQ 1630 02/19/19 04/28/19 [Novolog Mix 70/30 Flexpen 100 Units/mL 3mL] Lisinopril [Zestril 5mg 5 mg PO DAILY 02/19/19 04/28/19 Tablet] Ranolazine [Ranolazine ER] 1,000 mg PO BID 02/19/19 04/28/19 hydroCHLOROthiazide [HCTZ 25mg 25 mg PO DAILY 02/19/19 04/28/19 tab] hydrocodone 5 mg-acetaminophen 325 1 tab PO QHS PRN 03/04/19 04/28/19 mg tablet Atorvastatin Calcium [Lipitor 40mg 80 mg PO HS 04/27/19 04/28/19 Tablet] Fluticasone Furoate [Arnuity 100 mcg IH BID 04/27/19 04/28/19 Ellipta] Lactulose [Lactulose 10gm/15ml 30 ml PO NEEDED PRN 04/27/19 04/28/19 Oral Soln] Previous Rx's Medication Instructions Recorded ticagrelor 90 mg tablet 90 mg PO BID #180 tab 05/22/18 citalopram 20 mg tablet 20 mg PO DAILY #90 tab 07/02/18 aspirin 81 mg tablet,delayed 81 mg PO DAILY #90 tab 04/22/19 release Allergies Allergy/AdvReac Type Severity Reaction Status Date / Time morphine [MORPHINE] Allergy Severe I-ITCHING Verified 04/28/19 15:20 [facility] History - Hepatitis A Screen Drug use history?: No High risk sexual behaviors?: No History of sexually transmitted infection?: No Currently employed?: No Childcare worker?: No Do you have indoor plumbing?: Yes Do you have electricity?: Yes Attestation statement:: This patient has been screened for Hepatitis A risk factors. Medical History: Reports:: Asthma, Coronary Artery Disease, Cerebrovascular Accident, Diabetes Mellitus Type 1, Hyperlipidemia, Hypertension, Myocardial Infarction, Seizures Denies:: Cancer, Diabetes Mellitus Type 2, Internal Pacemaker, MRSA Comment: obesity Laterality Cases: Bilateral: Tonsillectomy Other Surgeries: Yes: Other (LHC-stents). No: Pacemaker Amputation: Yes (Left toe) Fractures: No - Social History Smoking Status: Never smoker Alcohol Intake: never Alcohol Intake Frequency:: other Substance Use Type: denies use Occupational Status: disabled Housing: assisted living facility Household Members: other Family Hx:: Unable to obtain ROS Obtained: Yes All systems reviewed & no additional complaints Physical Exam - General General appearance: alert, in no apparent distress, lethargic, obese, other (Patient looks weak and lethargic. He states he feels very weak and tired.) - Head Head exam: atraumatic, normocephalic, normal inspection - Eye Eye exam: Present: normal appearance, PERRL, EOMI - ENT ENT exam: Present: normal exam, normal oropharynx, mucous membranes moist, TM's normal bilaterally, normal external ear exam - Neck Neck exam: Present: normal inspection, full ROM, trachea midline - Chest Chest inspection: Present: normal inspection, symmetric chest wall rise - Respiratory Respiratory exam: Present: normal lung sounds bilaterally. Absent: respiratory distress - Cardiovascular Cardiovascular exam: Present: regular rate, normal rhythm - Abdominal Exam Abdominal exam: Present: soft, distention, tenderness, guarding - Extremities Exam Extremities exam: Present: normal inspection, full ROM, tenderness (Numbness on the left greater toe extending to the left foot and the left lower leg. Increasing redness on the left lower leg and the left foot. Increased warmth on the left leg and the left foot.), normal capillary refill, calf tenderness - Back Exam Back exam: Present: normal inspection, full ROM. Absent: tenderness - Neurological Exam Neurological exam: Present: alert, oriented X3, CN II-XII intact - Psychiatric Psychiatric exam: Present: normal affect, normal mood - Skin Skin exam: Present: warm, dry, intact, normal color
[2019-04-29 06:29] LABS: Basophils % 0.3 % (0.1-2.0); Eosinophils % 0.1 % (0.1-12.0); Hemoglobin 11.5 g/dL (14.1-18.0); Lymphocytes # 0.9 K/mm3 (0.7-4.5); Lymphocytes % 7.6 % (10-50); Mean Corpuscular HGB Conc 33.9 g/dL (31.8-35.4); Mean Corpuscular Volume 95.9 fl (80-94); Mean Platelet Volume 9.8 fl (7.4-10.4); Monocytes # 0.6 K/mm3 (0.1-1.0); Monocytes % 5.2 % (1.7-9.3); Neutrophils % 86.9 % (37.0-80.0); Platelet Count 131 K/mm3 (142-424); Red Blood Count 3.55 M/mm3 (4.60-6.20); White Blood Count 11.5 K/mm3 (4.8-10.8)
[2019-04-29 07:13] LABS: Lymphocytes % 9 % (10-50); Monocytes % 4 % (2-9); Neutrophils % 87 % (42-76); Total Cells Counted 100
[2019-04-29 07:14] LABS: RBC Morphology Normal
--- NOTE | 2019-04-29 07:17 | Pharmacy Consult Notes ---
[facility] Pharmacy VTE Monitoring - Patient Demographics Admission date: 04/28/19 Report Date: 04/29/19 Time: 07:17 Allergies/Adverse Reactions: Patient Allergies morphine [MORPHINE] Allergy (Severe, Verified 04/28/19 15:20) I-ITCHING Height: 1.68 m Weight: 100.811 kg Patient Problems: Current Active Problems Osteomyelitis of great toe of left foot (Acute) Fever (Acute) SIRS (systemic inflammatory response syndrome) (Acute) Cellulitis of left lower leg (Acute) - VTE Risk Labs: VTE Related Lab Results Hgb 11.5 g/dL (14.1-18.0) L 04/29/19 06:15 Hct 34.0 % (42.0-52.0) L 04/29/19 06:15 Plt Count 131 K/mm3 (142-424) L 04/29/19 06:15 BUN 20 mg/dL (7-18) H 04/28/19 17:45 Creatinine 1.45 mg/dL (0.70-1.30) H 04/28/19 17:45 Estimated Creat Clear 79 mL/min (50-200) 04/28/19 17:45 Was VTE Risk Assessment Performed: Yes VTE Score: 3 VTE Risk Level: Low Risk Clinical Trial Participant: No - Prophylaxis VTE Prophylaxis Ordered?: Yes Types of VTE Prophylaxis: TEDS Knee High
--- NOTE | 2019-04-29 08:39 | Pharmacy Consult Notes ---
- Pharmacy Consult Date: 04/29/19 Time: 08:36 Referring provider: DR. NEAL Reason for Consult:: VANCOMYCIN DOSING Allergies and ADEs:: Allergies Allergy/AdvReac Type Severity Reaction Status Date / Time morphine [MORPHINE] Allergy Severe I-ITCHING Verified 04/28/19 15:20 Home Medications:: Home Medications Medication Instructions Recorded Confirmed Type Insulin Aspart Prot/Insuln Asp 40 unit SQ 0700 10/17/17 04/28/19 History [Novolog Mix 70/30 Flexpen 100 Units/mL 3mL] amitriptyline 10 mg tablet 10 mg PO HS tab 02/18/18 04/28/19 History ticagrelor 90 mg tablet 90 mg PO BID #180 tab 05/22/18 04/28/19 Rx citalopram 20 mg tablet 20 mg PO DAILY #90 tab 07/02/18 04/28/19 Rx dilTIAZem HCl [Diltiazem 24Hr ER 120 mg PO DAILY 02/18/19 04/28/19 History (Cd)] Albuterol Sulfate [Albuterol 2 puffs IH Q4HP PRN 02/19/19 04/28/19 History Sulfate Hfa] Icosapent Ethyl [Vascepa] 1 gm PO BID 02/19/19 04/28/19 History Insulin Aspart Prot/Insuln Asp 30 unit SQ 1630 02/19/19 04/28/19 History [Novolog Mix 70/30 Flexpen 100 Units/mL 3mL] Lisinopril [Zestril 5mg 5 mg PO DAILY 02/19/19 04/28/19 History Tablet] Ranolazine [Ranolazine ER] 500 mg PO BID 02/19/19 04/29/19 History hydroCHLOROthiazide [HCTZ 25mg 25 mg PO DAILY 02/19/19 04/28/19 History tab] hydrocodone 5 mg-acetaminophen 325 1 tab PO QHS PRN 03/04/19 04/28/19 History mg tablet aspirin 81 mg tablet,delayed 81 mg PO DAILY #90 tab 04/22/19 04/28/19 Rx release Atorvastatin Calcium [Lipitor 40mg 80 mg PO HS 04/27/19 04/28/19 History Tablet] Fluticasone Furoate [Arnuity 100 mcg IH BID 04/27/19 04/28/19 History Ellipta] Lactulose [Lactulose 10gm/15ml 30 ml PO NEEDED PRN 04/27/19 04/28/19 History Oral Soln] buPROPion HCl [Bupropion Xl] 150 mg PO DAILY 04/29/19 04/29/19 History carvediloL [Carvedilol 6.25mg Tab] 6.25 mg PO BID 04/29/19 04/29/19 History Height: 1.68 m Weight: 100.811 kg Laboratory Results:: Laboratory Results - last 24 hr 04/28/19 17:45: WBC 13.6 H D, RBC 3.48 L, Hgb 11.2 L D, Hct 33.2 L, MCV 95.4 H, MCH 32.0 H, MCHC 33.6, RDW 14.1, Plt Count 125 L D, MPV 9.1, Neut % (Auto) 87.7 H, Lymph % (Auto) 6.6 L, [place] % (Auto) 5.5, Eos % (Auto) 0.0 L, Baso % (Auto) 0.1, Neut # (Auto) 11.9 H, Lymph # (Auto) 0.9, [place] # (Auto) 0.8, Eos # (Auto) 0.0, Baso # (Auto) 0.0, Total Counted 100, Neutrophils % (Manual) 77 H, Band Neutrophils % 7.0, Lymphocytes % (Manual) 11, Monocytes % (Manual) 5, Platelet Estimate Normal, RBC Morphology Normal 04/28/19 17:45: Sodium 128 L, Potassium 3.6, Chloride 93 L, Carbon Dioxide 25, Anion Gap 13.6, BUN 20 H, Creatinine 1.45 H, Estimated Creat Clear 79, Estimated GFR 49 L, Est GFR ( Amer) 60, Glucose 159 H D, Calcium 7.7 L D, Total Bilirubin 2.0 H, AST 62 H D, ALT 59 D, Alkaline Phosphatase 39 L, C-Reactive Protein 22.5 H, Total Protein 6.8, Albumin 2.7 L D, Globulin 4.1 H, Albumin/Globulin Ratio 0.7 L 04/28/19 17:45: Lactate 1.8 04/28/19 17:45: ESR 117 H 04/28/19 19:05: Influenza Type A Ag Negative, Influenza Type B Ag Negative 04/29/19 06:15: WBC 11.5 H, RBC 3.55 L, Hgb 11.5 L, Hct 34.0 L, MCV 95.9 H, MCH 32.5 H, MCHC 33.9, RDW 14.0, Plt Count 131 L, MPV 9.8, Neut % (Auto) 86.9 H, Lymph % (Auto) 7.6 L, [place] % (Auto) 5.2, Eos % (Auto) 0.1, Baso % (Auto) 0.3, Neut # (Auto) 10.0 H, Lymph # (Auto) 0.9, [place] # (Auto) 0.6, Eos # (Auto) 0.0, Baso # (Auto) 0.0, Total Counted 100, Neutrophils % (Manual) 87 H, Lymphocytes % (Manual) 9 L, Monocytes % (Manual) 4, Platelet Estimate Normal, RBC Morphology Normal Medical History: Reports:: Asthma, Coronary Artery Disease, Cerebrovascular Accident, Diabetes Mellitus Type 1, Hyperlipidemia, Hypertension, Myocardial Infarction, Seizures Denies:: Cancer, Diabetes Mellitus Type 2, Internal Pacemaker, MRSA Assessment and Plan - Assessment and plan all Dx Assessment and Plan for all problems:: BASED ON PATIENT'S FACTORS, RECOMMEND VANCOMYCIN 2 GM Q24H STARTING AT 1500. PHARMACY WILL FOLLOW DAILY AND ADJUST APPROPRIATE.
--- NOTE | 2019-04-29 09:35 | History & Physical Report ---
*Admission Date: 04/28/19 *Chief complaint: fever *History of present illness: this wm presents to the ed with fever -pt has hx of osteo an dwas on iv abx but over the last few day has reddness and swelling lt lower leg with fever - pt was seen in the ed and was admitted for ivf and abx [facility] History I have reviewed the patient's past medical history: Yes Medical History: Reports:: Asthma, Coronary Artery Disease, Cerebrovascular Accident, Diabetes Mellitus Type 1, Hyperlipidemia, Hypertension, Myocardial Infarction, Seizures Denies:: Cancer, Diabetes Mellitus Type 2, Internal Pacemaker, MRSA *Have you ever received a pneumonia vaccine?: No *Have you received a flu vaccine this season?: No Laterality Cases: Bilateral: Tonsillectomy Other Surgeries: Yes: Colonoscopy, Other (C-stents). No: Pacemaker Amputation: Yes (Left toe) Fractures: No - *Social History Educational Level: Attended High School Smoking Status: Never smoker Alcohol Intake: never Alcohol Intake Frequency:: other Substance Use Type: denies use *Occupational Status:: disabled Housing: assisted living facility Household Members: other *Travel in the last 8 weeks: None Family Hx:: Unable to obtain Review of Systems - Review of Systems Review of systems:: pertinent systems reviewed and negative unless documented below - Constitutional Reports fever(s) - Eyes Denies change in vision - ENT Denies sore throat - *Cardiovascular Denies chest pain at rest - *Respiratory Denies cough - *Gastrointestinal Denies vomiting - *Genitourinary Denies blood in urine - *Musculoskeletal Denies joint pain - Integumentary/Breasts Denies rash - *Neurologic Denies abnormal speech, Denies localized weakness, Denies seizure-like activity - Psychiatric Denies anxiety Meds Home Medications Medication Instructions Recorded Confirmed Type Insulin Aspart Prot/Insuln Asp 40 unit SQ 0700 10/17/17 04/28/19 History [Novolog Mix 70/30 Flexpen 100 Units/mL 3mL] amitriptyline 10 mg tablet 10 mg PO HS tab 02/18/18 04/28/19 History ticagrelor 90 mg tablet 90 mg PO BID #180 tab 05/22/18 04/28/19 Rx citalopram 20 mg tablet 20 mg PO DAILY #90 tab 07/02/18 04/28/19 Rx dilTIAZem HCl [Diltiazem 24Hr ER 120 mg PO DAILY 02/18/19 04/28/19 History (Cd)] Albuterol Sulfate [Albuterol 2 puffs IH Q4HP PRN 02/19/19 04/28/19 History Sulfate Hfa] Icosapent Ethyl [Vascepa] 1 gm PO BID 02/19/19 04/28/19 History Insulin Aspart Prot/Insuln Asp 30 unit SQ 1630 02/19/19 04/28/19 History [Novolog Mix 70/30 Flexpen 100 Units/mL 3mL] Ranolazine [Ranolazine ER] 500 mg PO BID 02/19/19 04/29/19 History hydroCHLOROthiazide [HCTZ 25mg 25 mg PO DAILY 02/19/19 04/28/19 History tab] lisinopriL [Zestril 5mg 5 mg PO DAILY 02/19/19 04/28/19 History Tablet] aspirin 81 mg tablet,delayed 81 mg PO DAILY #90 tab 04/22/19 04/28/19 Rx release Atorvastatin Calcium [Lipitor 40mg 80 mg PO HS 04/27/19 04/28/19 History Tablet] Fluticasone Furoate [Arnuity 100 mcg IH BID 04/27/19 04/28/19 History Ellipta] Lactulose [Lactulose 10gm/15ml 30 ml PO NEEDED PRN 04/27/19 04/28/19 History Oral Soln] Acetaminophen [Tylenol 500mg 1,000 mg PO Q6HP PRN 04/29/19 04/29/19 History tablet] Calcium Carbonate [Antacid] 200 mg PO DAILYP PRN 04/29/19 04/29/19 History Isosorbide Mononitrate [Imdur 60mg 60 mg PO DAILY 04/29/19 04/29/19 History ER tablet] carvediloL [Carvedilol 6.25mg Tab] 6.25 mg PO BID 04/29/19 04/29/19 History Allergies Allergy/AdvReac Type Severity Reaction Status Date / Time morphine [MORPHINE] Allergy Severe I-ITCHING Verified 04/28/19 15:20 Exam Vital signs and Labs for Last 24 Hours: Temp Pulse Resp BP Pulse Ox 98.9 F 79 24 128/64 96 04/29/19 08:00 04/29/19 08:00 12/04/19 08:00 04/29/19 08:00 04/29/19 08:00 Laboratory Results - last 24 hr 04/28/19 17:45: WBC 13.6 H D, RBC 3.48 L, Hgb 11.2 L D, Hct 33.2 L, MCV 95.4 H, MCH 32.0 H, MCHC 33.6, RDW 14.1, Plt Count 125 L D, MPV 9.1, Neut % (Auto) 87.7 H, Lymph % (Auto) 6.6 L, [place] % (Auto) 5.5, Eos % (Auto) 0.0 L, Baso % (Auto) 0.1, Neut # (Auto) 11.9 H, Lymph # (Auto) 0.9, [place] # (Auto) 0.8, Eos # (Auto) 0.0, Baso # (Auto) 0.0, Total Counted 100, Neutrophils % (Manual) 77 H, Band Neutrophils % 7.0, Lymphocytes % (Manual) 11, Monocytes % (Manual) 5, Platelet Estimate Normal, RBC Morphology Normal 04/28/19 17:45: Sodium 128 L, Potassium 3.6, Chloride 93 L, Carbon Dioxide 25, Anion Gap 13.6, BUN 20 H, Creatinine 1.45 H, Estimated Creat Clear 79, Estimated GFR 49 L, Est GFR ( Amer) 60, Glucose 159 H D, Calcium 7.7 L D, Total Bilirubin 2.0 H, AST 62 H D, ALT 59 D, Alkaline Phosphatase 39 L, C-Reactive Protein 22.5 H, Total Protein 6.8, Albumin 2.7 L D, Globulin 4.1 H, Albumin/Globulin Ratio 0.7 L 04/28/19 17:45: Lactate 1.8 04/28/19 17:45: ESR 117 H 04/28/19 19:05: Influenza Type A Ag Negative, Influenza Type B Ag Negative 04/29/19 06:15: WBC 11.5 H, RBC 3.55 L, Hgb 11.5 L, Hct 34.0 L, MCV 95.9 H, MCH 32.5 H, MCHC 33.9, RDW 14.0, Plt Count 131 L, MPV 9.8, Neut % (Auto) 86.9 H, Lymph % (Auto) 7.6 L, [place] % (Auto) 5.2, Eos % (Auto) 0.1, Baso % (Auto) 0.3, Neut # (Auto) 10.0 H, Lymph # (Auto) 0.9, [place] # (Auto) 0.6, Eos # (Auto) 0.0, Baso # (Auto) 0.0, Total Counted 100, Neutrophils % (Manual) 87 H, Lymphocytes % (Manual) 9 L, Monocytes % (Manual) 4, Platelet Estimate Normal, RBC Morphology Normal I & O for Last 24 hours: Intake & Output 04/26/19 04/27/19 04/28/19 04/29/19 11:59 11:59 11:59 11:59 Intake Total 1250 / 1250 Output Total 350 / 350 Balance 900 / 900 Weight 222 lb 4 oz - Constitutional no acute distress, obese - *Routine HEENT Exam Head: Present: normocephalic Eye: Present: EOMI, PERRL ENT: Present: mucous membranes dry - *Routine Neck Exam Absent: JVD - *Routine Respiratory Exam Present: CTA bilaterally - *Routine Cardiovascular Exam Present: RRR, murmur - *Routine Abdominal Exam Present: soft - *Routine Extremities Exam Present: pulses intact, calf tenderness Comments: reddness and swelling lt lower leg - *Routine Skin Exam Present: warm Comments: reddness lt lower ext - *Routine Neurological Exam Present: alert, CN II-XII intact - Routine Psychiatric Exam Present: unable to assess Assessment and Plan (1) Diabetes mellitus Current visit: No Status: Acute Qualifiers: Diabetes mellitus type: type 1 Diabetes mellitus complication status: with other specified complication Qualified Code(s): E10.69 - Type 1 diabetes mellitus with other specified complication Category: Medical Code(s): E11.9 - Type 2 diabetes mellitus without complications (2) Diabetic neuropathy Current visit: No Status: Acute Qualifiers: Diabetes mellitus type: type 2 Diabetes mellitus complication detail: diabetic polyneuropathy Qualified Code(s): E11.42 - Type 2 diabetes mellitus with diabetic polyneuropathy Category: Medical Code(s): E11.40 - Type 2 diabetes mellitus with diabetic neuropathy, unspecified (3) Cellulitis Current visit: No Status: Acute Qualifiers: Site of cellulitis: extremity Site of cellulitis of extremity: lower extremity Laterality: left Qualified Code(s): L03.116 - Cellulitis of left lower limb Category: Medical Code(s): L03.90 - Cellulitis, unspecified (4) Sepsis Current visit: No Status: Acute Qualifiers: Sepsis type: sepsis due to unspecified organism Sepsis acute organ dysfunction status: without acute organ dysfunction Qualified Code(s): A41.9 - Sepsis, unspecified organism Category: Medical Code(s): A41.9 - Sepsis, unspecified organism (5) SIRS (systemic inflammatory response syndrome) Current visit: Yes Status: Acute Category: Medical Code(s): R65.10 - Systemic inflammatory response syndrome (SIRS) of non-infectious origin without acute organ dysfunction (6) Cellulitis of left lower leg Current visit: Yes Status: Acute Category: Medical Code(s): L03.116 - Cellulitis of left lower limb
[2019-04-29 11:53] LABS: Anion Gap 15.3 mEq/L (5-15); Calcium 8.2 mg/dL (8.5-10.1)
--- NOTE | 2019-04-29 12:33 | Consult Report ---
*Admission Date: 04/28/19 *Reason for consult:: Left leg cellulitis *History of present illness: Mr. Jain is a 59-year-old diabetic male from [facility] who presents with pain and swelling to the left great toe. Patient had a partial left hallux amputation 02/19/2019 for osteomyelitis. The surgical margins for the left hallux were viable. Patient has a had a relatively uneventful postoperative course in terms of the amputation. He was seen last week in the office and the area had healed over. He went to the emergency room 04/27/2019 for nausea, GI pain and redness to the left lower extremity. He saw his PCP Dr. Alas who did an infection and GI work-up. Patient was then seen yesterday for an outpatient Doppler which was negative for DVT. I saw him in the office yesterday and he continued to have redness and swelling to the left lower extremity. Patient also had fever. He was sent to the emergency room for admission for IV antibiotics. Patient does have a history of bone infection. *Bone cultures Pathology & Cytology Lab report states: 02/19/2019 date collected. Diagnosis: A. Bone, Left Great Toe bone; Fragments pf unremarkable cone and soft tissue No evidence of acute osteomyleitis or malignancy identified B. Toe, Left Great Toe: Skin and soft tissue with ulceration and cellulitis; bone with acute osteomyelitis. Skin/soft tissue resection margin is viable and uninvolved. Patient also presents with new bruising to the medial left foot as well as 2 abrasions to the anterior aspect of the distal leg. Patient states he bumped the leg in the bed when he was at [facility]. I question if when he bumped the front of the leg and got an abrasion superficial localized infection which is now progressed to an abscess. Review of Systems - Review of Systems Review of systems:: pertinent systems reviewed and negative unless documented below - Constitutional Reports fatigue, Reports weakness, Denies chills - Eyes Denies blind spots - ENT Denies abnormal hearing - *Cardiovascular Denies chest pain, Denies shortness of breath - *Respiratory Denies change in phlegm color, Denies shortness of breath - *Gastrointestinal Reports abdominal pain, Reports nausea - *Genitourinary Denies difficulty urinating - *Musculoskeletal Reports muscle weakness - Integumentary/Breasts Reports hair loss, Reports nail changes, Reports redness - *Neurologic Reports tingling/numbness/burning sensations - Psychiatric Reports other - Hematologic/Lymphatic Reports easy bruising - Allergic/Immunologic Reports GI upset with certain foods [facility] History I have reviewed the patient's past medical history: Yes Medical History: Reports:: Asthma, Coronary Artery Disease, Cerebrovascular Accident, Diabetes Mellitus Type 1, Hyperlipidemia, Hypertension, Myocardial Infarction, Seizures Denies:: Cancer, Diabetes Mellitus Type 2, Internal Pacemaker, MRSA *Have you ever received a pneumonia vaccine?: No *Have you received a flu vaccine this season?: No Laterality Cases: Bilateral: Tonsillectomy Other Surgeries: Yes: Colonoscopy, Other (LHC-stents). No: Pacemaker Amputation: Yes (Left toe) Fractures: No - *Social History Educational Level: Attended High School Smoking Status: Never smoker Alcohol Intake: never Alcohol Intake Frequency:: other Substance Use Type: denies use *Occupational Status:: disabled Housing: assisted living facility Household Members: other *Travel in the last 8 weeks: None Family Hx:: Unable to obtain Meds Home Medications Medication Instructions Recorded Confirmed Type Insulin Aspart Prot/Insuln Asp 40 unit SQ 0700 10/17/17 04/28/19 History [Novolog Mix 70/30 Flexpen 100 Units/mL 3mL] amitriptyline 10 mg tablet 10 mg PO HS tab 02/18/18 04/28/19 History ticagrelor 90 mg tablet 90 mg PO BID #180 tab 05/22/18 04/28/19 Rx citalopram 20 mg tablet 20 mg PO DAILY #90 tab 07/02/18 04/28/19 Rx dilTIAZem HCl [Diltiazem 24Hr ER 120 mg PO DAILY 02/18/19 04/28/19 History (Cd)] Albuterol Sulfate [Albuterol 2 puffs IH Q4HP PRN 02/19/19 04/28/19 History Sulfate Hfa] Icosapent Ethyl [Vascepa] 1 gm PO BID 02/19/19 04/28/19 History Insulin Aspart Prot/Insuln Asp 30 unit SQ 1630 02/19/19 04/28/19 History [Novolog Mix 70/30 Flexpen 100 Units/mL 3mL] Ranolazine [Ranolazine ER] 500 mg PO BID 02/19/19 04/29/19 History hydroCHLOROthiazide [HCTZ 25mg 25 mg PO DAILY 02/19/19 04/28/19 History tab] lisinopriL [Zestril 5mg 5 mg PO DAILY 02/19/19 04/28/19 History Tablet] aspirin 81 mg tablet,delayed 81 mg PO DAILY #90 tab 04/22/19 04/28/19 Rx release Atorvastatin Calcium [Lipitor 40mg 80 mg PO HS 04/27/19 04/28/19 History Tablet] Fluticasone Furoate [Arnuity 100 mcg IH BID 04/27/19 04/28/19 History Ellipta] Lactulose [Lactulose 10gm/15ml 30 ml PO NEEDED PRN 04/27/19 04/28/19 History Oral Soln] Acetaminophen [Tylenol 500mg 1,000 mg PO Q6HP PRN 04/29/19 04/29/19 History tablet] Calcium Carbonate [Antacid] 200 mg PO DAILYP PRN 04/29/19 04/29/19 History Isosorbide Mononitrate [Imdur 60mg 60 mg PO DAILY 04/29/19 04/29/19 History ER tablet] carvediloL [Carvedilol 6.25mg Tab] 6.25 mg PO BID 04/29/19 04/29/19 History Allergies Allergy/AdvReac Type Severity Reaction Status Date / Time morphine [MORPHINE] Allergy Severe I-ITCHING Verified 04/28/19 15:20 Exam Vital signs and Labs for Last 24 Hours: Temp Pulse Resp BP Pulse Ox 98.9 F 79 24 128/64 96 04/29/19 08:00 04/29/19 08:00 04/29/19 08:00 04/29/19 08:00 04/29/19 08:00 Laboratory Results - last 24 hr 04/28/19 17:45: WBC 13.6 H D, RBC 3.48 L, Hgb 11.2 L D, Hct 33.2 L, MCV 95.4 H, MCH 32.0 H, MCHC 33.6, RDW 14.1, Plt Count 125 L D, MPV 9.1, Neut % (Auto) 87.7 H, Lymph % (Auto) 6.6 L, [place] % (Auto) 5.5, Eos % (Auto) 0.0 L, Baso % (Auto) 0.1, Neut # (Auto) 11.9 H, Lymph # (Auto) 0.9, [place] # (Auto) 0.8, Eos # (Auto) 0.0, Baso # (Auto) 0.0, Total Counted 100, Neutrophils % (Manual) 77 H, Band Neutrophils % 7.0, Lymphocytes % (Manual) 11, Monocytes % (Manual) 5, Platelet Estimate Normal, RBC Morphology Normal 04/28/19 17:45: Sodium 128 L, Potassium 3.6, Chloride 93 L, Carbon Dioxide 25, Anion Gap 13.6, BUN 20 H, Creatinine 1.45 H, Estimated Creat Clear 79, Estimated GFR 49 L, Est GFR ( Amer) 60, Glucose 159 H D, Calcium 7.7 L D, Total Bilirubin 2.0 H, AST 62 H D, ALT 59 D, Alkaline Phosphatase 39 L, C-Reactive Protein 22.5 H, Total Protein 6.8, Albumin 2.7 L D, Globulin 4.1 H, Albumin/Globulin Ratio 0.7 L 04/28/19 17:45: Lactate 1.8 04/28/19 17:45: ESR 117 H 04/28/19 19:05: Influenza Type A Ag Negative, Influenza Type B Ag Negative 04/29/19 06:15: WBC 11.5 H, RBC 3.55 L, Hgb 11.5 L, Hct 34.0 L, MCV 95.9 H, MCH 32.5 H, MCHC 33.9, RDW 14.0, Plt Count 131 L, MPV 9.8, Neut % (Auto) 86.9 H, Lymph % (Auto) 7.6 L, [place] % (Auto) 5.2, Eos % (Auto) 0.1, Baso % (Auto) 0.3, Neut # (Auto) 10.0 H, Lymph # (Auto) 0.9, [place] # (Auto) 0.6, Eos # (Auto) 0.0, Baso # (Auto) 0.0, Total Counted 100, Neutrophils % (Manual) 87 H, Lymphocytes % (Manual) 9 L, Monocytes % (Manual) 4, Platelet Estimate Normal, RBC Morphology Normal 04/29/19 06:15: Sodium 130 L, Potassium 3.3 L, Chloride 95 L, Carbon Dioxide 23, Anion Gap 15.3 H, BUN 22 H, Creatinine 1.21, Estimated Creat Clear 91, Estimated GFR 61, Est GFR ( Amer) 74 D, Glucose 109 H D, Calcium 8.2 L I & O for Last 24 hours: Intake & Output 04/27/19 04/28/19 04/29/19 04/30/19 11:59 11:59 11:59 11:59 Intake Total 1250 / 1250 Output Total 350 / 350 Balance 900 / 900 Weight 222 lb 4 oz - *Routine HEENT Exam Head: Present: normocephalic - *Routine Neck Exam Present: supple - *Routine Respiratory Exam Absent: respiratory distress - *Routine Cardiovascular Exam Present: RRR - *Routine Abdominal Exam Present: soft - *Routine Rectal Exam Patient deferred: visual exam - *Routine Exam Patient deferred: penile exam - *Routine Extremities Exam Present: calf tenderness, tenderness, amputation - *Routine Skin Exam Present: erythema, warm, scars, wounds - *Routine Neurological Exam Present: moving all extremities - Detailed Lower Extremity Exam Comments: Wound dehiscence noted to the distal medial side of the left hallux amp incision site. No stanislaw purulence, drainage, malodor. The entire LLE (foot, ankle) is red, hot and swollen. Pain with squeezing of the left calf. The left great toe is white in comparison to the rest of the foot and leg. There is bruising noted to the medial calcaneus. There is also 3 abrasions noted to the anterior rich[place]. Upon closer examination warranted the abrasions has some fluctuance and swelling. 15 blade used to present to the area and purulent drainage expressed. Pain localized to this region. Results - Labs Result Diagrams: 04/29/19 06:15 04/29/19 06:15 Labs: Abnormal lab results 04/28/19 04/28/19 04/28/19 Range/Units 17:45 17:45 17:45 WBC 13.6 H D (4.8-10.8) K/mm3 RBC 3.48 L (4.60-6.20) M/mm3 Hgb 11.2 L D (14.1-18.0) g/dL Hct 33.2 L (42.0-52.0) % MCV 95.4 H (80-94) fl MCH 32.0 H (27.0-31.2) pg Plt Count 125 L D (142-424) K/mm3 Neut % (Auto) 87.7 H (37.0-80.0) % Lymph % (Auto) 6.6 L (10-50) % Eos % (Auto) 0.0 L (0.1-12.0) % Neut # (Auto) 11.9 H (1.8-7.8) K/mm3 Neutrophils % (Manual) 77 H (42-76) % Lymphocytes % (Manual) (10-50) % ESR 117 H (0-20) mm/hr Sodium 128 L (136-145) mmol/L Potassium (3.5-5.1) mmoL/L Chloride 93 L (98-107) mmol/L Anion Gap (5-15) mEq/L BUN 20 H (7-18) mg/dL Creatinine 1.45 H (0.70-1.30) mg/dL Estimated GFR 49 L (>60) ml/min Glucose 159 H D (74-106) mg/dL Calcium 7.7 L D (8.5-10.1) mg/dL Total Bilirubin 2.0 H (0.2-1.0) mg/dL AST 62 H D (15-37) U/L Alkaline Phosphatase 39 L (46-116) U/L C-Reactive Protein 22.5 H (0.0-0.9) mg/dL Albumin 2.7 L D (3.4-5.0) gm/dL Globulin 4.1 H (1.3-3.2) gm/dl Albumin/Globulin Ratio 0.7 L (1.1-1.8) 04/29/19 04/29/19 Range/Units 06:15 06:15 WBC 11.5 H (4.8-10.8) K/mm3 RBC 3.55 L (4.60-6.20) M/mm3 Hgb 11.5 L (14.1-18.0) g/dL Hct 34.0 L (42.0-52.0) % MCV 95.9 H (80-94) fl MCH 32.5 H (27.0-31.2) pg Plt Count 131 L (142-424) K/mm3 Neut % (Auto) 86.9 H (37.0-80.0) % Lymph % (Auto) 7.6 L (10-50) % Eos % (Auto) (0.1-12.0) % Neut # (Auto) 10.0 H (1.8-7.8) K/mm3 Neutrophils % (Manual) 87 H (42-76) % Lymphocytes % (Manual) 9 L (10-50) % ESR (0-20) mm/hr Sodium 130 L (136-145) mmol/L Potassium 3.3 L (3.5-5.1) mmoL/L Chloride 95 L (98-107) mmol/L Anion Gap 15.3 H (5-15) mEq/L BUN 22 H (7-18) mg/dL Creatinine (0.70-1.30) mg/dL Estimated GFR (>60) ml/min Glucose 109 H D (74-106) mg/dL Calcium 8.2 L (8.5-10.1) mg/dL Total Bilirubin (0.2-1.0) mg/dL AST (15-37) U/L Alkaline Phosphatase (46-116) U/L C-Reactive Protein (0.0-0.9) mg/dL Albumin (3.4-5.0) gm/dL Globulin (1.3-3.2) gm/dl Albumin/Globulin Ratio (1.1-1.8) H & H 04/28/19 04/29/19 Range/Units 17:45 06:15 Hgb 11.2 L D 11.5 L (14.1-18.0) g/dL Hct 33.2 L 34.0 L (42.0-52.0) % All other labs normal. - Diagnostic results Ankle/Foot x-ray: pending, image reviewed Assessment and Plan (1) Abscess of left leg Current visit: Yes Status: Acute Category: Medical Code(s): L02.416 - Cuta neous abscess of left lower limb (2) Cellulitis of left lower leg Current visit: Yes Status: Acute Category: Medical Code(s): L03.116 - Cellulitis of left lower limb (3) Fever Current visit: Yes Status: Acute Qualifiers: Fever type: unspecified Qualified Code(s): R50.9 - Fever, unspecified Category: Medical Code(s): R50.9 - Fever, unspecified (4) Osteomyelitis of great toe of left foot Current visit: Yes Status: Acute Category: Medical Code(s): M86.9 - Osteomyelitis, unspecified (5) SIRS (systemic inflammatory response syndrome) Current visit: Yes Status: Acute Category: Medical Code(s): R65.10 - Systemic inflammatory response syndrome (SIRS) of non-infectious origin without acute organ dysfunction (6) Diabetic foot ulcer Current visit: No Status: Acute Qualifiers: Diabetic foot ulcer location: toe Diabetes mellitus type: other specified (including LORRAINE) Laterality: left Non-pressure ulcer stage: with fat layer exposed Qualified Code(s): E13.621 - Other specified diabetes mellitus with foot ulcer; L97.522 - Non-pressure chronic ulcer of other part of left foot with fat layer exposed Category: Medical Code(s): E11.621 - Type 2 diabetes mellitus with foot ulcer; L97.509 - Non-pressure chronic ulcer of other part of unspecified foot with unspecified severity (7) Diabetic neuropathy Current visit: No Status: Acute Qualifiers: Diabetes mellitus type: type 2 Diabetes mellitus complication detail: diabetic polyneuropathy Qualified Code(s): E11.42 - Type 2 diabetes mellitus with diabetic polyneuropathy Category: Medical Code(s): E11.40 - Type 2 diabetes mellitus with diabetic neuropathy, unspecified - Assessment and plan all Dx Assessment and Plan for all problems:: LEFT HALLUX PARTIAL AMP, 02/19/19: LEFT LEG CELLULITIS, ABSCESS: Once again patient has had a relatively uneventful postoperative course after t he left hallux partial amputation. New bruising to the medial left heel and the anterior distal leg noted. Patient reportS hitting the leg on the bed [place]. I question if the abrasion did not allow for a superficial infection to start in the leg which is now progressed to an abscess. The surgical site clinically looks stable with no redness, malodor, purulence or pain to the left great toe. Pain to palpation of the calf and anterior leg. 1. Dressing applied: betadine dry sterile dressing 2. Continue IV Abx: Vanco, Rocephin 3. NPO NOW 4. Discussed plan of care with PCP, Dr. Bishop bronson for surgery 6. Plan for surgery today for left leg incision and drainage for abscess, debridement of nonviable soft tissue and bone, possible great toe amputation PRE-OP AMPUTATION/INFECTION: Radiographs of the left ankle taken 04/29/19 were evaluated by myself. No evidence of osteomyelitis to the ankle or leg. No evidence of gas gangrene or cortical erosion. We discussed conservative versus surgical treatment options. Conservative treatment options include local wound care, oral and IV a ntibiotics, change in shoe wear, taping/padding, and off-loading. Discussed that patient would benefit from a wider and deeper shoe wear to accommodate the deformity, recommend DM shoes for after ulcer heals. We discussed surgical intervention for I&D of the leg as well as possible amputation of the left great toe. Patient understands that there is a chance that the toes can migrate to fill the gap or the foot may change shape after surgery. Patient also understands that they could have wound healing complications including delayed healing and infection. We discussed that if the wound does not heal, it is possible that they may need a more proximal amputation and could result in further loss of digits, loss of partial foot or loss of leg. We discussed the risks and benefits in great detail. Other surgical risks include: prolonged pain and swelling, further infection requiring oral or IV antibiotics, delay in healing of soft tissue or bone, nerve or blood vessel damage, CRPS/RSD, DVT, anesthesia complications, and even . Medical clearance per PCP, Dr. Alas.
--- NOTE | 2019-04-29 14:20 | Operative Note ---
Date of procedure: 04/29/19 Pre-op Diagnosis:: 1. Left lower extremity cellulitis 2. Left hallux ulcer S/P partial amp for osteomyelitis 02/19/2019 3. Left diabetic foot infection 4. Left leg abscess 5. Left leg lymphedema Post-op Diagnosis:: Same Procedure performed:: 1. Left hallux amputation 2. Left hallux incision and drainage 3. Left leg incision and drainage Surgeon:: Darleen Flower DPM Anesthesia: GETA, local (20cc 0.5% marcaine plain) Estimated blood loss (mL): 40 Clinical Note:: See floor consult note. Operative findings:: Left hallux distal amputation site with opening at 0.2 x 0.2 x 0.1 cm. Tissue was fibrotic and schmitz distally. The bone appeared white but slightly crumbly. The metatarsal head was intact with no evidence of osteomyelitis. New abrasions to the anterior leg and bruise to the medial Calc. Purulent drainage expressed from fluctuant area over abrasion. Operative note:: On this date and time patient was deemed an appropriate surgical candidate. With informed consent signed, the patient was taken to the operating theater. The patient was positioned supine. General anesthesia was induced. No tourniquet used. Left hallux incision and drainage, hallux amputation: The lower extremity was prepped and drapped in normal sterile fashion. Attention was directed to the left hallux where previous partial hallux amputation was noted with wound dehiscence of 0.2 x 0.2 x 0.1 cm at the medial distal incision. Left hallux color within normal limits. Ascending cellulitis noted starting from the first metatarsal phalangeal joint extending to just below the knee. Abrasion with fluctuant area noted to the anterior distal leg. A racquet incision was mapped out over the proximal phalanx. Utilizing a 15 blade dissection was carried down sharply to the level of the bone around the phalanx which was disarticulated from the first metatarsal head. Distal tissue under the incision site was fibrotic and slightly schmitz in appearance with no stanislaw purulence, drainage or malodor noted. The proximal phalanx bone was intact, color appeared normal but slightly soft. Portion of it was cut and sent for bone culture and the other part was sent for bone biopsy for pathology. Next 1 L of bacitracin irrigation was used to flush the wound and pulse lavage. The wound was reexplored and no further signs of infection noted. Vessels ligated with electrocautery and tied as necessary. Bleeding noted. Ebenezer was used in the incision site to help slow the bleeding. 3-0 Prolene was used to close skin in an interrupted simple suture fashion. The wounds were cleansed. Left leg incision and drainage: Attention was then directed to the anterior leg where an abrasion was noted as well as a fluctuant area. 2 small linear incisions were mapped out over each of these areas. 15 blade used to stab into the fluctuance. Immediately purulence was expressed. Culture taken. Blunt dissection used to explore the area. The 2 sites did have a tract connecting them. No extension along the tendons. No exposed tibial bone. Incision was then flushed with 1 L of bacitracin irrigation. Area was reexplored. Serous drainage consistent with lymphatic fluid was then expressed. Once again area was flushed with remaining 1 L of solution. Upon reexploring there was no more drainage or deep signs of infection noted. 3-0 Prolene was used to close skin in an interrupted simple suture fashion. The wounds were cleansed. 20cc 0.5% marcaine plain was injected at the end of the case. Xeroform, betadine, dry sterile dressing was then applied to the left lower extremity. The patient was awoken from anesthesia and transferred to recovery with vital signs stable and neurovascular status intact. Materials: 3-0 Prolene Ebenezer Discharge/Plan: Transfer back to the floor. Patient is to maintain dressing clean dry and intact. Continue antibiotics. Non weight bearing to the left lower extremity with DME assistance (walker, wheelchair). Obtain post op films, left foot, 3 views. Plan for dressing change tomorrow by myself. Tourniquet time (min): 0 Condition: stable Disposition: floor Specimens:: 1. Left leg wound culture 2. Left hallux bone culture 3. Left hallux bone path Complications:: None
--- NOTE | 2019-04-29 14:26 | Progress Note ---
[facility] Anesthesia Checklist - Patient Identification Patient Identification: Arm Band - Structural Data Admitted From: Home Planned Operative Procedure/s: I&D right foot Consent for Planned Operative Procedure(s) Verified: Yes Verified Documents: Surgical Consent, History and Physical - NPO Status Verified Time NPO: 11:30 (pt states that he had a few sips of water/soda around 11:30) - Additional verifications Anesthesia Reactions: No - Airway Assessment C-Spine Mobility Assessed: Yes (mp2) TMJ Mobility Assessed: Yes Dentition: Poor Dentition - Neurological Assessment Level of Consciousness: Awake, Alert - Anesthesia Plan Anesthesia Risk discussed: Yes Anesthesia Plan: Verified ASA Class: III Anesthesia Type: General [facility] History I have reviewed the patient's past medical history: Yes Medical History: Reports:: Asthma, Coronary Artery Disease, Cerebrovascular Accident, Diabetes Mellitus Type 1, Hyperlipidemia, Hypertension, Myocardial Infarction, Seizures Denies:: Cancer, Diabetes Mellitus Type 2, Internal Pacemaker, MRSA *Have you ever received a pneumonia vaccine?: No *Have you received a flu vaccine this season?: No Anesthesia experience/problems:: nac Laterality Cases: Bilateral: Tonsillectomy Other Surgeries: Yes: Colonoscopy, Other (LHC-stents). No: Pacemaker Amputation: Yes (Left toe) Fractures: No - *Social History Educational Level: Attended High School Smoking Status: Never smoker Alcohol Intake: never Alcohol Intake Frequency:: other Substance Use Type: denies use *Occupational Status:: disabled Housing: assisted living facility Household Members: other *Travel in the last 8 weeks: None Family Hx:: Unable to obtain
--- NOTE | 2019-04-29 14:26 | Progress Note ---
[facility] Anesthesia Record Part I Intake, IV Amount: 700 Estimated blood loss (mL): 10 Urine output (mL): 0 Blood Pressure: 105/63 SaO2: 95 Pulse Rate: 66 Respiratory Rate: 16 Temperature: 99.8 F Patient is:: Drowsy Stable to PACU at:: 14:20
--- NOTE | 2019-04-29 14:27 | Progress Note ---
[facility] Anesthesia Record Part II Discharge Time: 14:50 Destination: Medical Surgical Department PACU nurse assessment reviewed?: Yes Patient Condition:: Good Anesthesia Complications:: None Swallowing reflex intact?: Yes Cyanosis?: No
[2019-04-30 06:48] LABS: Basophils % 0.1 % (0.1-2.0); Hematocrit 30.3 % (42.0-52.0); Hemoglobin 9.9 g/dL (14.1-18.0); Lymphocytes # 0.8 K/mm3 (0.7-4.5); Lymphocytes % 7.6 % (10-50); Mean Corpuscular HGB Conc 32.7 g/dL (31.8-35.4); Mean Corpuscular Volume 96.1 fl (80-94); Monocytes # 0.9 K/mm3 (0.1-1.0); Monocytes % 8.7 % (1.7-9.3); Neutrophils # 8.4 K/mm3 (1.8-7.8); Neutrophils % 83.5 % (37.0-80.0); Platelet Count 127 K/mm3 (142-424); Red Blood Count 3.15 M/mm3 (4.60-6.20); White Blood Count 10.1 K/mm3 (4.8-10.8)
[2019-04-30 07:19] LABS: Albumin Level 2.2 gm/dL (3.4-5.0); Albumin/Globulin Ratio 0.5 (1.1-1.8); Anion Gap 13.6 mEq/L (5-15); Bilirubin,Total 0.9 mg/dL (0.2-1.0); Calcium 7.7 mg/dL (8.5-10.1); Globulin 4.1 gm/dl (1.3-3.2); Total Protein,Serum 6.3 gm/dL (6.4-8.2)
[2019-04-30 07:45] LABS: Erythrocyte Sedimentation Rate > 140 mm/hr (0-20)
--- NOTE | 2019-04-30 09:07 | Progress Note ---
Internal Medicine - PN: Subj *Date: 04/30/19 *Time: 09:04 Interval history: pt laying in bed, states no c/o Exam Vital signs and Labs for Last 24 Hours: Temp Pulse Resp BP Pulse Ox 98.3 F 89 19 122/62 90 L 04/30/19 08:00 04/30/19 08:00 04/30/19 08:00 04/30/19 08:00 04/30/19 08:00 Laboratory Results - last 24 hr 04/29/19 06:15: Sodium 130 L, Potassium 3.3 L, Chloride 95 L, Carbon Dioxide 23, Anion Gap 15.3 H, BUN 22 H, Creatinine 1.21, Estimated Creat Clear 91, Estimated GFR 61, Est GFR ( Amer) 74 D, Glucose 109 H D, Calcium 8.2 L 04/29/19 06:27: POC Glucose 90 04/29/19 14:30: POC Glucose 69 L 04/29/19 17:05: POC Glucose 294 H 04/30/19 06:08: POC Glucose 197 H 04/30/19 06:35: WBC 10.1, RBC 3.15 L, Hgb 9.9 L, Hct 30.3 L, MCV 96.1 H, MCH 31.4 H, MCHC 32.7, RDW 14.0, Plt Count 127 L, MPV 9.0, Neut % (Auto) 83.5 H, Lymph % (Auto) 7.6 L, [place] % (Auto) 8.7, Eos % (Auto) 0.0 L, Baso % (Auto) 0.1, Neut # (Auto) 8.4 H, Lymph # (Auto) 0.8, [place] # (Auto) 0.9, Eos # (Auto) 0.0, Baso # (Auto) 0.0, ESR > 140 H 04/30/19 06:35: Sodium 128 L, Potassium 3.6, Chloride 95 L, Carbon Dioxide 23, Anion Gap 13.6, BUN 22 H, Creatinine 1.11, Estimated Creat Clear 100, Estimated GFR 67, Est GFR ( Amer) 81, Glucose 189 H, Calcium 7.7 L, Total Bilirubin 0.9, AST 35 D, ALT 36 D, Alkaline Phosphatase 48, Total Protein 6.3 L, Albumin 2.2 L, Globulin 4.1 H, Albumin/Globulin Ratio 0.5 L I & O for Last 24 hours: Intake & Output 04/27/19 04/28/19 04/29/19 04/30/19 11:59 11:59 11:59 11:59 Intake Total 1250 / 1250 2840 / 2840 Output Total 350 / 350 2200 / 2200 Balance 900 / 900 640 / 640 Weight 222 lb 4 oz 222 lb 6 oz Microbiology Reports for the Last 24 Hours: Microbiology 04/29/19 12:30 Leg,Left - Abscess Gram Stain - Final 04/29/19 12:30 Leg,Left - Abscess Wound Culture - Preliminary - Constitutional no acute distress, obese - *Routine HEENT Exam Head: Present: normocephalic Eye: Present: PERRL ENT: Present: mucous membranes moist - *Routine Neck Exam Present: supple. Absent: lymphadenopathy - *Routine Respiratory Exam Present: CTA bilaterally - *Routine Cardiovascular Exam Present: RRR - *Routine Abdominal Exam Present: soft, normoactive bowel sounds. Absent: tenderness - *Routine Extremities Exam Absent: cyanosis, clubbing, edema Comments: dressing c/d/i area of redness past the dressing that is marked. - *Routine Skin Exam Present: warm, wounds. Absent: rash Comments: left dressing to lower ext c/d/i, redness noted past the dressing that is marked. ext elevated - *Routine Neurological Exam Present: alert, oriented X3 - Routine Psychiatric Exam Present: normal affect Assessment and Plan (1) Diabetes mellitus Current visit: No Status: Acute Qualifiers: Diabetes mellitus type: type 1 Diabetes mellitus complication status: with other specified complication Qualified Code(s): E10.69 - Type 1 diabetes mellitus with other specified complication Category: Medical Code(s): E11.9 - Type 2 diabetes mellitus without complications (2) Diabetic neuropathy Current visit: No Status: Acute Qualifiers: Diabetes mellitus type: type 2 Diabetes mellitus complication detail: diabetic polyneuropathy Qualified Code(s): E11.42 - Type 2 diabetes mellitus with diabetic polyneuropathy Category: Medical Code(s): E11.40 - Type 2 diabetes mellitus with diabetic neuropathy, unspecified (3) Cellulitis Current visit: No Status: Acute Qualifiers: Site of cellulitis: extremity Site of cellulitis of extremity: lower extremity Laterality: left Qualified Code(s): L03.116 - Cellulitis of left lower limb Category: Medical Code(s): L03.90 - Cellulitis, unspecified (4) Sepsis Current visit: No Status: Acute Qualifiers: Sepsis type: sepsis due to unspecified organism Sepsis acute organ dysfunction status: without acute organ dysfunction Qualified Code(s): A41.9 - Sepsis, unspecified organism Category: Medical Code(s): A41.9 - Sepsis, unspecified organism (5) SIRS (systemic inflammatory response syndrome) Current visit: Yes Status: Acute Category: Medical Code(s): R65.10 - Systemic inflammatory response syndrome (SIRS) of non-infectious origin without acute organ dysfunction (6) Cellulitis of left lower leg Current visit: Yes Status: Acute Category: Medical Code(s): L03.116 - Cellulitis of left lower limb - Assessment and plan all Dx Assessment and Plan for all problems:: rounded with Dr Alas all orders per dr Alas continue antibiotics and followed by podiatry
--- NOTE | 2019-04-30 13:22 | Progress Note ---
Subjective Date: 04/30/19 Time: 12:20 Principal diagnosis: LLE cellulitis Interval history: Patient is resting comfortably in bed having lunch. He reports pain to the leg but reports less than yesterday. Patient is still a poor historian and gets confused over sequence of events. PN: Obj Ex Vital signs: Temp Pulse Resp BP Pulse Ox 98.8 F 82 18 113/67 96 04/30/19 11:16 04/30/19 11:16 04/30/19 11:16 04/30/19 11:16 04/30/19 11:16 - Constitutional no acute distress - Routine HEENT Exam Head: Present: normocephalic - Routine Respiratory Exam Absent: respiratory distress - Routine Abdominal Exam Present: soft - Routine Rectal Exam Patient deferred: visual exam - Routine Extremities Exam Present: edema, calf tenderness, amputation (L hallux amp) - Detailed Lower Extremity Exam Leg image: 1 - Left lower extremity edema and erythema improved but still noted. Left hallux sutures clean dry and intact. Sutures overlying to stab incisions on the anterior leg. Hard palpable region 1 to 2 cm inferior to the left knee on the lateral aspect of the proximal calf noted. Patient still having some calf pain. Progress Note: A&P (1) Diabetes mellitus Status: Acute Current Visit: No (2) Diabetic neuropathy Status: Acute Current Visit: No (3) Cellulitis Status: Acute Current Visit: No (4) Sepsis Status: Acute Current Visit: No (5) SIRS (systemic inflammatory response syndrome) Status: Acute Current Visit: Yes (6) Cellulitis of left lower leg Status: Acute Current Visit: Yes Assessment and Plan for All Diagnoses:: S/P Left hallux amputation, incision and drainage Sx:04/29/19 POD #1 Sutures are clean, dry and intact to the left hallux incision site. Sutures are intact to the 2 incision sites on the anterior leg abscess site. The hallux has minimal edema and erythema noted. The edema and erythema on the remaining foot and leg is present but has lessened in its intensity. Less pain to palpation of the calf. There is a palpable area on the lateral aspect of the proximal leg 1- 2 cm inferior to the knee. Xeroform, betadine, then dry 4x4's, shea and Jose Luis were placed to the foot. Patient is to keep this dressing clean, dry, and intact. He is to continue non weight bearing. Ice, elevate for pain and swelling. 1. Continue IV antibiotics 2. Dressing change with Betadine dry sterile dressing 3. Strict nonweightbearing to left lower extremity 4. Patient needs DMEwalker, wheelchair, bedside commode 5. Await Intra-Op wound and bone cultures 6. Patient will likely need a course of IV antibiotics. If bone cultures are negative patient will need at least 2 weeks of IV antibiotics, if positive patient will need 6 weeks of IV antibiotics. Due to the patient's current residence being [facility] he may need to go back to [place] in order to get the IV antibiotics. Patient will also need assistance with daily dressing change. -Clean wound with Betadine or wound vacuum cleaner repair person. Soak 4 x 4 with Betadine and applied to 3 incision sites. Then applied dry 4 x 4's with a dry sterile dressing (Shea or Kerlix roll), secure with Jose Luis bandage. 7. Plan for dressing change tomorrow
--- NOTE | 2019-04-30 15:28 | Pharmacy Consult Notes ---
- Pharmacy Consult Date: 04/30/19 Time: 15:27 Referring provider: DR. JONES Reason for Consult:: VANCOMYCIN LEVEL AND DOSING CHANGE Allergies and ADEs:: Allergies Allergy/AdvReac Type Severity Reaction Status Date / Time morphine [MORPHINE] Allergy Severe I-ITCHING Verified 04/28/19 15:20 Home Medications:: Home Medications Medication Instructions Recorded Confirmed Type Insulin Aspart Prot/Insuln Asp 40 unit SQ 0700 10/17/17 04/28/19 History [Novolog Mix 70/30 Flexpen 100 Units/mL 3mL] amitriptyline 10 mg tablet 10 mg PO HS tab 02/18/18 04/28/19 History ticagrelor 90 mg tablet 90 mg PO BID #180 tab 05/22/18 04/28/19 Rx citalopram 20 mg tablet 20 mg PO DAILY #90 tab 07/02/18 04/28/19 Rx dilTIAZem HCl [Diltiazem 24Hr ER 120 mg PO DAILY 02/18/19 04/28/19 History (Cd)] Albuterol Sulfate [Albuterol 2 puffs IH Q4HP PRN 02/19/19 04/28/19 History Sulfate Hfa] Icosapent Ethyl [Vascepa] 1 gm PO BID 02/19/19 04/28/19 History Insulin Aspart Prot/Insuln Asp 30 unit SQ 1630 02/19/19 04/28/19 History [Novolog Mix 70/30 Flexpen 100 Units/mL 3mL] Ranolazine [Ranolazine ER] 500 mg PO BID 02/19/19 04/29/19 History hydroCHLOROthiazide [HCTZ 25mg 25 mg PO DAILY 02/19/19 04/28/19 History tab] lisinopriL [Zestril 5mg 5 mg PO DAILY 02/19/19 04/28/19 History Tablet] aspirin 81 mg tablet,delayed 81 mg PO DAILY #90 tab 04/22/19 04/28/19 Rx release Atorvastatin Calcium [Lipitor 40mg 80 mg PO HS 04/27/19 04/28/19 History Tablet] Fluticasone Furoate [Arnuity 100 mcg IH BID 04/27/19 04/28/19 History Ellipta] Lactulose [Lactulose 10gm/15ml 30 ml PO NEEDED PRN 04/27/19 04/28/19 History Oral Soln] Acetaminophen [Tylenol 500mg 1,000 mg PO Q6HP PRN 04/29/19 04/29/19 History tablet] Calcium Carbonate [Antacid] 200 mg PO DAILYP PRN 04/29/19 04/29/19 History Isosorbide Mononitrate [Imdur 60mg 60 mg PO DAILY 04/29/19 04/29/19 History ER tablet] carvediloL [Carvedilol 6.25mg Tab] 6.25 mg PO BID 04/29/19 04/29/19 History Height: 1.68 m Weight: 100.868 kg Laboratory Results:: Laboratory Results - last 24 hr 04/29/19 06:27: POC Glucose 90 04/29/19 17:05: POC Glucose 294 H 04/30/19 06:08: POC Glucose 197 H 04/30/19 06:35: WBC 10.1, RBC 3.15 L, Hgb 9.9 L, Hct 30.3 L, MCV 96.1 H, MCH 31.4 H, MCHC 32.7, RDW 14.0, Plt Count 127 L, MPV 9.0, Neut % (Auto) 83.5 H, Lymph % (Auto) 7.6 L, [place] % (Auto) 8.7, Eos % (Auto) 0.0 L, Baso % (Auto) 0.1, Neut # (Auto) 8.4 H, Lymph # (Auto) 0.8, [place] # (Auto) 0.9, Eos # (Auto) 0.0, Baso # (Auto) 0.0, ESR > 140 H 04/30/19 06:35: Sodium 128 L, Potassium 3.6, Chloride 95 L, Carbon Dioxide 23, Anion Gap 13.6, BUN 22 H, Creatinine 1.11, Estimated Creat Clear 100, Estimated GFR 67, Est GFR ( Amer) 81, Glucose 189 H, Calcium 7.7 L, Total Bilirubin 0.9, AST 35 D, ALT 36 D, Alkaline Phosphatase 48, Total Protein 6.3 L, Albumin 2.2 L, Globulin 4.1 H, Albumin/Globulin Ratio 0.5 L 04/30/19 14:30: Vancomycin Trough 7.9 L Medical History: Reports:: Asthma, Coronary Artery Disease, Cerebrovascular Accident, Diabetes Mellitus Type 1, Hyperlipidemia, Hypertension, Myocardial Infarction, Seizures Denies:: Cancer, Diabetes Mellitus Type 2, Internal Pacemaker, MRSA Assessment and Plan (1) Diabetes mellitus Current visit: No Status: Acute Qualifiers: Diabetes mellitus type: type 1 Diabetes mellitus complication status: with other specified complication Qualified Code(s): E10.69 - Type 1 diabetes mellitus with other specified complication Category: Medical Code(s): E11.9 - Type 2 diabetes mellitus without complications (2) Diabetic neuropathy Current visit: No Status: Acute Qualifiers: Diabetes mellitus type: type 2 Diabetes mellitus complication detail: diabetic polyneuropathy Qualified Code(s): E11.42 - Type 2 diabetes mellitus with diabetic polyneuropathy Category: Medical Code(s): E11.40 - Type 2 diabetes mellitus with diabetic neuropathy, unspecified (3) Cellulitis Current visit: No Status: Acute Qualifiers: Site of cellulitis: extremity Site of cellulitis of extremity: lower extremity Laterality: left Qualified Code(s): L03.116 - Cellulitis of left l ower limb Category: Medical Code(s): L03.90 - Cellulitis, unspecified (4) Sepsis Current visit: No Status: Acute Qualifiers: Sepsis type: sepsis due to unspecified organism Sepsis acute organ dysfunction status: without acute organ dysfunction Qualified Code(s): A41.9 - Sepsis, unspecified organism Category: Medical Code(s): A41.9 - Sepsis, unspecified organism (5) SIRS (systemic inflammatory response syndrome) Current visit: Yes Status: Acute Category: Medical Code(s): R65.10 - Systemic inflammatory response syndrome (SIRS) of non-infectious origin without acute organ dysfunction (6) Cellulitis of left lower leg Current visit: Yes Status: Acute Category: Medical Code(s): L03.116 - Cellulitis of left lower limb - Assessment and plan all Dx Assessment and Plan for all problems:: BASED ON PATIENT'S TROUGH LEVEL OF 7.9 MCG/ML AFTER 2 DOSES, RECOMMEND CHANGING DOSING INTERVAL FROM Q24H TO Q18H WITH VANCOMYCIN 2000 MG AT THIS TIME.
[2019-05-01 06:47] LABS: Basophils % 0.2 % (0.1-2.0); Eosinophils # 0.1 K/mm3 (0.0-0.4); Eosinophils % 1.2 % (0.1-12.0); Hematocrit 30.2 % (42.0-52.0); Hemoglobin 10.1 g/dL (14.1-18.0); Lymphocytes % 10.7 % (10-50); Mean Corpuscular HGB Conc 33.5 g/dL (31.8-35.4); Mean Corpuscular Volume 95.5 fl (80-94); Mean Platelet Volume 9.9 fl (7.4-10.4); Monocytes # 1.2 K/mm3 (0.1-1.0); Monocytes % 12.7 % (1.7-9.3); Neutrophils # 7.1 K/mm3 (1.8-7.8); Neutrophils % 75.2 % (37.0-80.0); Platelet Count 140 K/mm3 (142-424); Red Blood Count 3.16 M/mm3 (4.60-6.20); Red Cell Distribution Width 14.3 % (11.5-17.5); White Blood Count 9.4 K/mm3 (4.8-10.8)
[2019-05-01 08:36] LABS: Anion Gap 10.6 mEq/L (5-15); Calcium 7.5 mg/dL (8.5-10.1)
--- NOTE | 2019-05-01 09:41 | Progress Note ---
Subjective Date: 05/01/19 <Lexie Calabrese - 05/01/19 10:02> Time: 08:30 <Lexie Calabrese - 05/01/19 10:02> Principal diagnosis: LLE cellulitis <Lexie Calabrese - 05/01/19 10:02> Interval history: Patient is resting comfortably in bed, he has just finished his breakfast, states he has slept well through the night. Report he did have some loose stools yesterday but that has resolved as of today. Good appetite, no n/v. Patient is somewhat drowsy this am, he was given pain medication shortly after shift change. Patient still answers appropriately. He reports pain to the leg but reports that it is some better and less than yesterday. <Lexie Calabrese Nando - 05/01/19 10:34> PN: Obj Ex Vital signs: Temp Pulse Resp BP Pulse Ox 97.4 F L 66 17 131/79 98 05/01/19 04:00 05/01/19 04:00 05/01/19 04:00 05/01/19 04:00 05/01/19 04:00 <Darleen Flower - 05/01/19 11:21> Temp Pulse Resp BP Pulse Ox 97.4 F L 66 17 131/79 98 05/01/19 04:00 05/01/19 04:00 05/01/19 04:00 05/01/19 04:00 05/01/19 04:00 <Lexie Calabrese Nando - 05/01/19 10:02> - Constitutional no acute distress, obese <Lexie Calabrese Nando - 05/01/19 10:02> - Routine HEENT Exam Head: Present: normocephalic <Lexie Calabrese Nando - 05/01/19 10:02> ENT: Present: mucous membranes moist <Lexie Calabrese Nando - 05/01/19 10:02> - Routine Neck Exam Present: full ROM, trachea midline <Lexie Calabrese Nando - 05/01/19 10:02> - Routine Respiratory Exam Absent: respiratory distress <GuanakitoLexie L - 05/01/19 10:02> - Routine Cardiovascular Exam Present: RRR. Absent: JVD <Lexie Calabrese - 05/01/19 10:02> - Routine Abdominal Exam Present: obese <Lexie Calabrese - 05/01/19 10:02> - Routine Extremities Exam Present: edema, pulses intact, normal capillary refill, calf tenderness, amputation <Lexie Calabrese - 05/01/19 10:02> Comments: Left hallux amp. <Lexie Calabrese 05/01/19 10:02> - Detailed Lower Extremity Exam Lower leg: Left swelling, Left tenderness, Left erythema, Left warmth <Lexie Velásquez - 05/01/19 10:02> Leg image: 1 - Left lower extremity edema and erythema improved but still noted. Left hallux sutures clean dry and intact. Sutures overlying to stab incisions on the anterior leg. Hard palpable region 1 to 2 cm inferior to the left knee on the lateral aspect of the proximal calf noted. Patient still having some calf pain. <Lexie Calabrese 05/01/19 10:02> - Routine Back/Spine/Pelvis Exam Back/Spine: Present: full ROM <Lexie Calabrese - 05/01/19 10:02> Progress Note: A&P (1) Diabetes mellitus Status: Acute Current Visit: No (2) Diabetic neuropathy Status: Acute Current Visit: No (3) Cellulitis Status: Acute Current Visit: No (4) Sepsis Status: Acute Current Visit: No (5) SIRS (systemic inflammatory response syndrome) Status: Acute Current Visit: Yes (6) Cellulitis of left lower leg Status: Acute Assessment and plan: S/P Left hallux amputation, incision and drainage Sx:04/29/19 POD #2 Current Visit: Yes <Lexie Calabrese - 05/01/19 10:58> (1) Diabetes mellitus Status: Acute Current Visit: No (2) Diabetic neuropathy Status: Acute Current Visit: No (3) Cellulitis Status: Acute Current Visit: No (4) Sepsis Status: Acute Current Visit: No (5) SIRS (systemic inflammatory response syndrome) Status: Acute Current Visit: Yes (6) Cellulitis of left lower leg Status: Acute Current Visit: Yes <Darleen Flower - 05/01/19 11:21> Assessment and Plan for All Diagnoses:: Physician Attestation I have read the note that was documented by the staff and/or REGION[employer] CONTROLLER and agree with the documentation. Patient has been educated several times on the treatment plan and need to remain off the left foot. At times he expresses compliance and other times will ignore it. Recommend the patient remain [facility] and [place] for daily dressing changes. <Darleen Flower - 05/01/19 11:21> Sutures are clean, dry and intact to the left hallux incision site. Sutures are intact to the 2 incision sites on the anterior leg abscess site. The hallux has minimal edema and erythema noted. The edema and erythema on the remaining foot and leg is present but has lessened in its intensity. Less pain to palpation of the calf. There is a palpable area on the lateral aspect of the proximal leg 1- 2 cm inferior to the knee.This area feels less firm today and less tender to paplation this am. Xeroform, betadine, then dry 4x4's, shea and Jose Luis were placed to the foot. Patient is to keep this dressing clean, dry, and intact. He is to continue non weight bearing. Ice, elevate for pain and swelling. 1. Continue IV antibiotics 2. Dressing change with Betadine dry sterile dressing this am, and all future dressing changes. 3. Strict nonweightbearing to left lower extremity 4. Patient needs DMEwalker, wheelchair, bedside commode 5. Await Intra-Op wound and bone cultures 6. Wound culture taken from the Left foot/hallux on 04/27/19 was resulted this am as MRSA. 7.Patient will likely need a course of IV antibiotics. If bone cultures are negative patient will need at least 2 weeks of IV antibiotics, if positive patient will need 6 weeks of IV antibiotics. Due to the patient's current residence being [facility] he may need to go back to [place] in order to get the IV antibiotics. Patient will also need assistance with daily dressing change. -Clean wound with Betadine or wound dry cleaner. Soak 4 x 4 with Betadine and applied to 3 incision sites. Then applied dry 4 x 4's with a dry sterile dressing (Shea or Kerlix roll), secure with Jose Luis bandage. 8. Patient's labs are trending downward, patient stable from Podiatry standpoint to continue to receive his antibiotics and dressing changes from [place] and will need to follow back up in 1 week in our office for incision check after discharge from the hospital . <Lexie Calabrese - 05/01/19 10:02>
[2019-05-01 13:08] LABS: Basophils % 0.1 % (0.1-2.0); Eosinophils # 0.1 K/mm3 (0.0-0.4); Eosinophils % 1.3 % (0.1-12.0); Hematocrit 30.2 % (42.0-52.0); Hemoglobin 9.9 g/dL (14.1-18.0); Lymphocytes % 11.2 % (10-50); Mean Corpuscular HGB Conc 32.8 g/dL (31.8-35.4); Mean Corpuscular Volume 95.1 fl (80-94); Mean Platelet Volume 10.1 fl (7.4-10.4); Monocytes # 0.8 K/mm3 (0.1-1.0); Monocytes % 8.7 % (1.7-9.3); Neutrophils # 7.2 K/mm3 (1.8-7.8); Neutrophils % 78.7 % (37.0-80.0); Platelet Count 146 K/mm3 (142-424); Red Blood Count 3.18 M/mm3 (4.60-6.20); White Blood Count 9.1 K/mm3 (4.8-10.8)
--- NOTE | 2019-05-01 13:10 | Discharge Summary ---
General - General Admission date:: 04/28/19 Discharge date: 05/01/19 HPI HPI: this wm presents to the ed with fever -pt has hx of osteo an dwas on iv abx but over the last few day has reddness and swelling lt lower leg with fever - pt was seen in the ed and was admitted for ivf and abx Hospital Course Hospital Course: Procedure performed Per Podiatry:: 1. Left hallux amputation 2. Left hallux incision and drainage 3. Left leg incision and drainage Xeroform, betadine, then dry 4x4's, lo and Jose Luis were placed to the foot. Patient is to keep this dressing clean, dry, and intact. He is to continue non weight bearing. Ice, elevate for pain and swelling. 1. Continue IV antibiotics 2. Dressing change with Betadine dry sterile dressing this am, and all future dressing changes. 3. Strict nonweightbearing to left lower extremity 4. Patient needs DMEwalker, wheelchair, bedside commode 5. Await Intra-Op wound and bone cultures 6. Wound culture taken from the Left foot/hallux on 04/27/19 was resulted this am as MRSA. 7.Patient will likely need a course of IV antibiotics. If bone cultures are negative patient will need at least 2 weeks of IV antibiotics, if positive patient will need 6 weeks of IV antibiotics. Due to the patient's current residence being [facility] he may need to go back to [place] in order to get the IV antibiotics. Patient will also need assistance with daily dressing change. -Clean wound with Betadine or wound school cleaner. Soak 4 x 4 with Betadine and applied to 3 incision sites. Then applied dry 4 x 4's with a dry sterile dressing (Lo or Kerlix roll), secure with Jose Luis bandage. 8. Patient's labs are trending downward, patient stable from Podiatry standpoint to continue to receive his antibiotics and dressing changes from [facility] and will need to follow back up in 1 week in our office for incision check after discharge from the hospital . Objective Vital signs: Temp Pulse Resp BP Pulse Ox 98.4 F 110 H 18 103/54 L 93 L 05/01/19 08:00 05/01/19 08:00 05/01/19 08:00 05/01/19 08:00 05/01/19 08:00 no acute distress - *Routine HEENT Exam Head: Present: normocephalic Eye: Present: PERRL ENT: Present: mucous membranes moist - *Routine Respiratory Exam Present: CTA bilaterally - *Routine Cardiovascular Exam Present: RRR - *Routine Abdominal Exam Present: soft, normoactive bowel sounds - *Routine Extremities Exam Present: full ROM, normal capillary refill Comments: dressing c/d/i - *Routine Skin Exam Present: erythema, wounds Comments: dressing c/d/i redness marked - *Routine Neurological Exam Present: alert, oriented X3 - Routine Psychiatric Exam Present: normal affect Results Labs on day of discharge: Labs from last 24 hours 05/01/19 05/01/19 05/01/19 08:20 08:20 08:20 WBC RBC Hgb Hct MCV MCH MCHC RDW Plt Count MPV Neut % (Auto) Lymph % (Auto) [place] % (Auto) Eos % (Auto) Baso % (Auto) Neut # (Auto) Lymph # (Auto) [place] # (Auto) Eos # (Auto) Baso # (Auto) ESR > 140 H Sodium 128 L Potassium 3.6 Chloride 94 L Carbon Dioxide 27 Anion Gap 10.6 BUN 21 H Creatinine 1.05 Estimated Creat Clear 105 Estimated GFR 72 Est GFR ( Amer) 87 Glucose 117 H POC Glucose Calcium 7.5 L C-Reactive Protein 9.5 H D Vancomycin Trough 05/01/19 05/01/19 04/30/19 06:25 06:25 16:46 WBC 9.4 RBC 3.16 L Hgb 10.1 L Hct 30.2 L MCV 95.5 H MCH 32.0 H MCHC 33.5 RDW 14.3 Plt Count 140 L MPV 9.9 Neut % (Auto) 75.2 Lymph % (Auto) 10.7 [place] % (Auto) 12.7 H Eos % (Auto) 1.2 Baso % (Auto) 0.2 Neut # (Auto) 7.1 Lymph # (Auto) 1.0 [place] # (Auto) 1.2 H Eos # (Auto) 0.1 Baso # (Auto) 0.0 ESR Sodium Potassium Chloride Carbon Dioxide Anion Gap BUN Creatinine Estimated Creat Clear Estimated GFR Est GFR ( Amer) Glucose POC Glucose 106 158 H Calcium C-Reactive Protein Vancomycin Trough 04/30/19 14:30 WBC RBC Hgb Hct MCV MCH MCHC RDW Plt Count MPV Neut % (Auto) Lymph % (Auto) [place] % (Auto) Eos % (Auto) Baso % (Auto) Neut # (Auto) Lymph # (Auto) [place] # (Auto) Eos # (Auto) Baso # (Auto) ESR Sodium Potassium Chloride Carbon Dioxide Anion Gap BUN Creatinine Estimated Creat Clear Estimated GFR Est GFR ( Amer) Glucose POC Glucose Calcium C-Reactive Protein Vancomycin Trough 7.9 L Preliminary micro results at discharge 04/29/19 12:30 Wound Culture - Preliminary Leg,Left - Abscess 04/29/19 13:55 Surgical Biopsy Culture - Preliminary Toe,Left Great 04/28/19 17:40 Blood Culture - Preliminary Blood NO GROWTH AFTER 48 HOURS 04/28/19 17:45 Blood Culture - Preliminary Blood NO GROWTH AFTER 48 HOURS 04/29/19 13:55 Abscess Culture - Preliminary Leg,Left NO GROWTH AFTER 24 HOURS - Additional Comments Rounded with Dr moralez and all orders per naomy DS: Diagnosis - Discharge Diagnosis (1) Diabetes mellitus Status: Acute (2) Diabetic neuropathy Status: Acute (3) Cellulitis Status: Acute (4) Sepsis Status: Acute (5) SIRS (systemic inflammatory response syndrome) Status: Acute (6) Cellulitis of left lower leg Status: Acute Discharge Plan - Patient Discharge Instructions ACTIVITY: Continue current activity DIET: continue same diet Patient Instructions: DI for Cellulitis -- Adult, Osteomyelitis, DI for Surgical Site Infection, DI for Sepsis -- Adult - Follow up Plan Follow up with: Darleen Flower DPM [Staff Physician] - 1 week Digna Michelle APRN [Advanced Practice Nurse] - 05/05/19 Disposition: Xfer [facility] Home Medications: Home Medications Medication Instructions Recorded Confirmed Type Insulin Aspart Prot/Insuln Asp 40 unit SQ 0700 10/17/17 04/28/19 History [Novolog Mix 70/30 Flexpen 100 Units/mL 3mL] amitriptyline 10 mg tablet 10 mg PO HS tab 02/18/18 04/28/19 History ticagrelor 90 mg tablet 90 mg PO BID #180 tab 05/22/18 04/28/19 Rx citalopram 20 mg tablet 20 mg PO DAILY #90 tab 07/02/18 04/28/19 Rx dilTIAZem HCl [Diltiazem 24Hr ER 120 mg PO DAILY 02/18/19 04/28/19 History (Cd)] Albuterol Sulfate [Albuterol 2 puffs IH Q4HP PRN 02/19/19 04/28/19 History Sulfate Hfa] Icosapent Ethyl [Vascepa] 1 gm PO BID 02/19/19 04/28/19 History Insulin Aspart Prot/Insuln Asp 30 unit SQ 1630 02/19/19 04/28/19 History [Novolog Mix 70/30 Flexpen 100 Units/mL 3mL] Ranolazine [Ranolazine ER] 500 mg PO BID 02/19/19 04/29/19 History hydroCHLOROthiazide [HCTZ 25mg 25 mg PO DAILY 02/19/19 04/28/19 History tab] lisinopriL [Zestril 5mg 5 mg PO DAILY 02/19/19 04/28/19 History Tablet] aspirin 81 mg tablet,delayed 81 mg PO DAILY #90 tab 04/22/19 04/28/19 Rx release Atorvastatin Calcium [Lipitor 40mg 80 mg PO HS 04/27/19 04/28/19 History Tablet] Fluticasone Furoate [Arnuity 100 mcg IH BID 04/27/19 04/28/19 History Ellipta] Lactulose [Lactulose 10gm/15ml 30 ml PO NEEDED PRN 04/27/19 04/28/19 History Oral Soln] Acetaminophen [Tylenol 500mg 1,000 mg PO Q6HP PRN 04/29/19 04/29/19 History tablet] Calcium Carbonate [Antacid] 200 mg PO DAILYP PRN 04/29/19 04/29/19 History Isosorbide Mononitrate [Imdur 60mg 60 mg PO DAILY 04/29/19 04/29/19 History ER tablet] carvediloL [Carvedilol 6.25mg Tab] 6.25 mg PO BID 04/29/19 04/29/19 History Vancomycin HCl [Vancomycin 1000mg 2,000 mg IV Q18H 14 Days vial 05/01/19 Rx Vial] Prescriptions/Medication Reconciliation: New Vancomycin HCl [Vancomycin 1000mg Vial] 2,000 mg IV Q18H 14 Days vial Continued ticagrelor 90 mg tablet 90 mg PO BID #180 tab aspirin 81 mg tablet,delayed release 81 mg PO DAILY #90 tab amitriptyline 10 mg tablet 10 mg PO HS tab citalopram 20 mg tablet 20 mg PO DAILY #90 tab Insulin Aspart Prot/Insuln Asp [Novolog Mix 70/30 Flexpen 100 Units/mL 3mL] 40 unit SQ 0700 dilTIAZem HCl [Diltiazem 24Hr ER (Cd)] 120 mg PO DAILY lisinopriL [Zestril 5mg Tablet] 5 mg PO DAILY hydroCHLOROthiazide [HCTZ 25mg tab] 25 mg PO DAILY Ranolazine [Ranolazine ER] 500 mg PO BID Insulin Aspart Prot/Insuln Asp [Novolog Mix 70/30 Flexpen 100 Units/mL 3mL] 30 unit SQ 1630 Atorvastatin Calcium [Lipitor 40mg Tablet] 80 mg PO HS Lactulose [Lactulose 10gm/15ml Oral Soln] 30 ml PO NEEDED PRN PRN Reason: Constipation Isosorbide Mononitrate [Imdur 60mg ER tablet] 60 mg PO DAILY Albuterol Sulfate [Albuterol Sulfate Hfa] 2 puffs IH Q4HP PRN PRN Reason: SOB/WHEEZING Icosapent Ethyl [Vascepa] 1 gm PO BID Fluticasone Furoate [Arnuity Ellipta] 100 mcg IH BID carvediloL [Carvedilol 6.25mg Tab] 6.25 mg PO BID Acetaminophen [Tylenol 500mg tablet] 1,000 mg PO Q6HP PRN PRN Reason: PAIN/FEVER Calcium Carbonate [Antacid] 200 mg PO DAILYP PRN PRN Reason: Indigestion - Problem Reconciliation Problems Reviewed?: Yes
== END 2019-05-01 16:30 | DRG 857 ==
LOC: ER 17:14 → 2ND 17:14 → OBSVTOIN 20:15 → 2ND 21:55
PROVIDERS: ADMIT Emergency Medicine; ATTEND Emergency Medicine
CPT/HCPCS: 36415; 36569; 71010; 71045; 73590; 73610; 73630; 74177; 77001; 80048; 80053; 80202; 82962; 83605; 83690; 85007; 85025; 85651; 86140; 87040; 87070; 87075; 87077; 87186; 87205; 87275; 87276; 88305; 88311; 93005; 93971; 96361; 96365; 96366; 96372; 96375; 99284; C1751; C1769; J2405; J3370; Q9967

== ENCOUNTER → 2019-05-11 16:17 | Outpatient (CLI) | payer MEDICARE, BC, SELFPAY ==
[2019-05-11 18:16] LABS: Vancomycin,Trough 17.4 mcg/ml (10.0-20.0)
== END ==
PROVIDERS: Visit Provider Emergency Medicine
DX: Z51.81 Encounter for therapeutic drug level monitoring (principal)
CPT/HCPCS: 80202

== ENCOUNTER → 2020-03-03 07:39 | Outpatient (CLI) | payer MEDICARE, BC, SELFPAY ==
--- NOTE | 2020-03-03 | CA_ITS ---
APPROVED REPORT Exam: Pharmacologic Technologist: Angela Melendez, Ht: 5 ft 6 in Wt: 227 lbs BSA: 2.11 m2 HR: 67 bpm BP: 108/71 mmHg Rhythm: NSR,NORMAL Medical History Medical History: HTN, Hyperlipidemia, Diabetic ??? Insulin Medications: Lisinopril,,,,, Isosorbide,,,,, Atorvastatin,,,,, HCTZ,,,,, Carvedilol,,,,, Ticagrelor,,,,, INSULIN,,,,, Albuterol,,,,, Tylenol,,,,, Calcium,,,,, Vit C,,,,, Celexa,,,,, Cardiac Risk Factors: HTN, Hyperlipidemia, Diabetes (insulin), FHX of CAD Stress Test Details Test: LEXISCAN HR Resting HR: 69 bpm Max Heart Rate (APMHR): 158 bpm Max HR Achieved: 87 bpm Target HR (85% APMHR): 134 bpm % of APMHR: 55 Recovery HR: 83 bpm BP Resting BP: 108.0/71.0 mmHg Max BP: 120.0/69.0 mmHg Recovery BP: 109.0/68.0 mmHg ECG Resting ECG: NSR,NORMAL Clinical Exercise duration: 04:20 min Highest Stage Achieved: Stress ECG Conclusion DURING INFUSION PATIENT HAD SHARP CHEST PAIN,SOA AND MALAISE. NO ARRHYTHMIAS/ECTOPY. NO SIGNIFICANT ST-T CHANGES. UNREMARKABLE LEXISCAN STRESS. MYOVIEW IMAGS REPORTED SEPARATELY. Test Summary REST 03:50 . . 69 . 108/ 71 . . Stage 1 . . . . . . . Myoview Injected Stage 1 01:00 . . 80 . . . . Stage 2 01:00 . . 85 . 118/ 61 . . Stage 3 01:00 . . 84 . 110/ 66 . . Stage 4 01:00 . . 82 . 115/ 66 . . Stage 4 01:20 . . 83 . 115/ 66 . Stop exercise at 04:20 RECOVERY 01:00 . . 81 . . . . RECOVERY 02:00 . . 78 . . . . RECOVERY 03:00 . . 79 . 117/ 70 . . RECOVERY 04:00 . . 76 . 117/ 70 . . RECOVERY 04:44 . . 75 . 120/ 69 . . Electronically signed by : Star Motley, 03/03/2020 14:48:23
--- NOTE | 2020-03-03 07:40 | NM_ITS ---
APPROVED REPORT Exam: Nuclear Stress Test Indication: chest pain..short of breath Patient Location: Outpatient Stress Tech: Adrianna Pozonkson [place] Tech:LYNDSEY Barber RT(R)(N) Ht: 5 ft 6 in Wt: 224 lbs HR: 67 bpm BP: 108/71 mmHg BSA: 2.10 m2 BMI: 36.1 History: chest pain..short of breath Procedure: Patient received a 0.4 mg of intravenous Lexiscan, resting heart rate 67 bpm, resting blood pressure 108/71 mmHg, with Lexiscan maximum heart rate achived was 83 bpm which is Less than 85 % of the maximum predicted heart rate and blood pressure was 109/68 mmHg. Electrocardiogram Resting electrocardiogram shows sinus rhythm with Lexiscan there is less than 1.[address] segment depression noted from the baseline EKG. The EKG portion of the Lexiscan is nondiagnostic. Cardiac Stress and Resting SPECT Images: Cardiac Stress and Resting SPECT images were obtained using technetium 99m Myoview 32.8 mCi stress and 10.23 mCi at rest. Gated SPECT for analysis of segmental wall motion and calculation of the ejection fraction also done. Cardiac stress and resting SPECT images show a mild fixed defect in the inferior wall with normal contracted gated SPECT is likely secondary to soft tissue attenuation, no reversible ischemia seen. Computer derived ejection fraction is over 65% with no regional wall motion abnormality, right ventricle is normal size and contractility. Conclusion: 1. The EKG portion of the Lexiscan Myoview is nondiagnostic. 2. No scintigraphic evidence of reversible ischemia seen, computer derived ejection fraction is over 65% with no regional wall motion abnormality, right ventricle is normal size and contractility. 3. Likely normal Lexiscan Myoview study. Electronically signed by : Star Motley, 03/03/2020 14:51:37
--- NOTE | 2020-03-03 07:42 | CA_ITS ---
APPROVED REPORT EXAM: Comprehensive 2D, Doppler, and color-flow Echocardiogram Junior Sales Representative: Ana Rosa Hilton RVT Ht: 5 ft 6 in Wt: 227lbs BSA: 2.11 BP: 137/68 mmHg Indications: CP,SOA,CAD,STENT,HTN,HLD,DM TDS 2D Dimensions LVOT 1.62 cm (M/F) 1.5-2.5 M-Mode Dimensions RVDd 2.42 cm (0.9-2.6) LVDd 5.83 cm (3.5-5.7) LVDs 4.04 cm (3.5-5.7) IVSd 0.60 cm (0.6-1.1) PWd 1.06 cm (0.6-1.1) EF (Teich) 57.40% FS 30.70% EDV (Teich) 168.50 mL ESV (Teich) 71.70 mL LV Diastology E/A Ratio 0.85 Mitral Valve MV A Velocity 84.00 (40-130 cm/s) Left Ventricle Left atrium is mildly enlarged, left ventricle is normal size, mild concentric left ventricular hypertrophy, visually estimated ejection fraction 55% with no regional wall motion abnormality, grade 1 diastolic dysfunction seen without tissue Doppler evidence of raise left atrial pressure. Right Ventricle Right atrium and right ventricular normal size and contractility. Aortic Valve Aortic valve is minimally thickened and fibrosed, there is no aortic stenosis or aortic insufficiency. Mitral Valve Mitral valve grossly normal, there is mild mitral regurgitation. Tricuspid Valve Tricuspid valve is grossly normal, there is mild tricuspid regurgitation. Tricuspid regurgitation jet velocity is inadequate for calculation of the right ventricular systolic pressure. Pulmonic Valve Pulmonic valve is poorly visualized. Great Vessels Aortic root is normal size. Pericardium No significant pericardial effusion noted. Conclusion 1. Mildly enlarged left atrium, normal left ventricular size, mild concentric left ventricular hypertrophy, visually estimated ejection fraction 55% with no regional wall motion abnormality, grade 1 diastolic dysfunction seen without tissue Doppler evidence of raise left atrial pressure. 2. Mild mitral and tricuspid regurgitation. 3. No significant pericardial effusion noted. Electronically signed by : Star Motley, 03/03/2020 15:43:16
== END ==
PROVIDERS: PCP Emergency Medicine; Visit Provider Urology
DX: E11.42 Type 2 diabetes mellitus with diabetic polyneuropathy (principal); E78.5 Hyperlipidemia, unspecified; I11.9 Hypertensive heart disease without heart failure; I25.118 Atherosclerotic heart disease of native coronary artery with other forms of angina pectoris; R06.00 Dyspnea, unspecified; R07.2 Precordial pain; Z95.5 Presence of coronary angioplasty implant and graft; Z79.4 Long term (current) use of insulin
CPT/HCPCS: 78452; 93017; 93306; A9502; J2785

== ENCOUNTER 2020-03-14 09:20 | Day surgery (SDC) | payer MEDICARE, BC, SELFPAY ==
[2020-03-14] VITALS (11 sets, daily range): BP systolic 102–151; BP diastolic 59–78; PULSE 55–71; RESP 16–20; TEMP 37; O2SAT 92–99; BMI 36.8
--- NOTE | 2020-03-14 | IR_ITS ---
APPROVED REPORT Patient Location: Outpatient PROCEDURES Left heart catheterization Left ventriculogram Selective coronary angiogram INDICATION Known coronary artery disease, Recalcitrant angina pectoris Informed consent was obtained prior to the procedure. COMPLICATIONS NONE Estimated Blood Loss: LESS THAN 10 ML TECHNIQUE One percent lidocaine used to anesthetize the right anterior aspect of the wrist. The right radial artery was accessed via the Seldinger technique. A 6 Sinhala sheath was placed in the right radial artery. 2.5 mg of verapamil, 800 mcg of nitroglycerin, 1mg Lidocaine and 5000 U Heparin were given through the arterial sheath. The palpable catheter was also used to perform left heart catheterization, left ventriculogram and selective coronary angiogram. At the end of the procedure the sheath was removed good hemostasis was achieved using Traclet band, patient was transferred to the postop holding area in stable condition. ANGIOGRAPHIC RESULTS The left main artery Normal The left anterior descending artery As proximal 10 to 20% stenoses followed by a mid vessel 30% stenosis followed by mid vessel stent which is widely patent with minimal concentric in-stent restenosis. There is an additional 30% concentric stenosis in the midsegment of the LAD approximately 2 mm diameter vessel. There is an additional stent in the distal segment which has 50 to 60% in-stent restenosis followed by an additional concentric 60 to 70% stenosis in a vessel less than 2 mm in diameter. Distally the LAD has 70 to 80% stenosis 2 cm proximal to its terminal aspect The circumflex artery Is a dominant vessel and has mild 10 to 20% proximal stenosis. A large third obtuse marginal artery has a proximal concentric 30 to 40% stenosis followed by distal 40 and 50% stenoses. The terminal obtuse marginal artery has a stent in its proximal through mid segment which has mild concentric in-stent restenosis The right coronary artery Is a nondominant yet still large vessel with a stent in the proximal to mid vessel segment with 10 to 20% concentric in-stent restenosis. The mid right coronary artery has a gap without stents which is widely patent. This is followed by stent which extends into the proximal posterior descending artery and extends into the mid segment. This contiguous portion of the stents are widely patent with one area of concentric in-stent restenosis in the body of the distal right coronary artery. The posterior descending artery is widely patent The MOTA ventriculogram reveals Normal 65% The left ventricular end-diastolic pressure 10 mmHg IMPRESSION Coronary artery disease as described above Normal ejection fraction Normal left ventricular end-diastolic pressure PLAN 1. I strongly favor medical management. Despite the moderate to severe disease in the mid to distal LAD this is not great anatomy for additional stenting inside the in-stent restenotic lesion. This vessel is patent with SATISH-3 flow and patient should be managed medically and less angina pectoris becomes absolutely intolerable and recalcitrant. Only then would I consider revascularizing the mid to distal LAD. 2. Maximize antianginal medication 3. Tete Pedersen Electronically signed by : Heladio Alonso, 03/14/2020 11:13:45
[2020-03-14 10:22] LABS: Basophils % 0.4 % (0.1-2.0); Eosinophils # 0.3 K/mm3 (0.0-0.4); Eosinophils % 3.1 % (0.1-12.0); Hematocrit 41.6 % (42.0-52.0); Hemoglobin 14.3 g/dL (14.1-18.0); Lymphocytes # 2.1 K/mm3 (0.7-4.5); Mean Corpuscular HGB Conc 34.3 g/dL (31.8-35.4); Mean Corpuscular Hemoglobin 31.9 pg (27.0-31.2); Mean Corpuscular Volume 93.1 fl (80-94); Mean Platelet Volume 8.4 fl (7.4-10.4); Monocytes # 0.8 K/mm3 (0.1-1.0); Monocytes % 8.6 % (1.7-9.3); Neutrophils # 6.4 K/mm3 (1.8-7.8); Neutrophils % 65.8 % (37.0-80.0); Platelet Count 176 K/mm3 (142-424); Red Blood Count 4.47 M/mm3 (4.60-6.20); Red Cell Distribution Width 14.3 % (11.5-17.5); White Blood Count 9.8 K/mm3 (4.8-10.8)
[2020-03-14 10:24] LABS: Anion Gap 14.6 mEq/L (5-15); Blood Urea Nitrogen 14 mg/dl (9-20); Calcium 9.4 mg/dl (8.4-10.2); Carbon Dioxide 27 mmol/L (22.0-30.0); Chloride 98 mmol/L (98-107); Creatinine Clearance Estimated 112 mL/min (50-200); Estimated Glomerular Filt Rate 86 ml/min (>60); GFR (African American) 103 ML/MIN (>60); Glucose 141 mg/dl (74-100); Potassium 4.6 mmoL/L (3.5-5.1); Sodium 135 mmol/L (136-145)
[2020-03-14 10:43] LABS: Coronavirus 19 IgG Antibody Positive (Negative); Coronavirus 19 IgM Antibody Negative (Negative)
== END 2020-03-14 14:16 | disposition home or self-care (01) ==
LOC: CATHLAB 09:23
PROVIDERS: PCP Emergency Medicine; Visit Provider Internal Medicine
DX: I25.110 Atherosclerotic heart disease of native coronary artery with unstable angina pectoris (principal); E11.42 Type 2 diabetes mellitus with diabetic polyneuropathy; Z79.4 Long term (current) use of insulin; Z95.5 Presence of coronary angioplasty implant and graft; E78.5 Hyperlipidemia, unspecified; R53.82 Chronic fatigue, unspecified; Z79.899 Other long term (current) drug therapy
CPT/HCPCS: 80048; 85025; 86328; 93458; 99152; C1725; C1769; J1644; Q9967

== ENCOUNTER 2020-08-30 16:47 | Inpatient (IN) | payer MEDICARE, BC, SELFPAY ==
[2020-08-30] VITALS (10 sets, daily range): BP systolic 101–146; BP diastolic 45–69; PULSE 67–78; RESP 16–20; TEMP 36.6–37.3; O2SAT 96–100; BMI 39.4; BMI 37.6
--- NOTE | 2020-08-30 16:53 | XR_ITS ---
PROCEDURE: XR FOOT LT MIN 3V CLINICAL INDICATION: swelling, wound on second toe COMPARISON: CR XR FOOT LT MIN 3V from 02/18/2019 CR XR FOOT LT MIN 3V from 02/19/2019 CR XR FOOT LT MIN 3V from 04/27/2019 CR XR FOOT LT MIN 3V from 04/29/2019 FINDINGS: S/p amputation at the 1st metatarsophalangeal joint and the 2nd PIP joint. No bony erosive changes are evident. Soft tissue swelling is present along the dorsal aspect of the foot. No fracture or dislocation. No lytic or blastic change. Prominent bony hypertrophy is present along the distal and anterior aspect of the talus Other findings:None. IMPRESSION: Prior amputation at the 1st MTP joint and 2nd PIP joint without bony erosive change. Soft tissue swelling along the dorsal aspect of the midfoot Dictated by: Adam Hughes MD 08/30/2020 17:36 Adam Hughes MD in [place] 08/30/2020 17:36
--- NOTE | 2020-08-30 16:53 | CT_ITS ---
PROCEDURE: CT HEAD/BRAIN WO CON CLINICAL INDICATION: fall, head injury Head injury with headache/pain, contusion, abrasion or hematoma COMPARISON: CT HDWO CT HEAD W/O CONTRAST from 01/19/2017 TECHNIQUE: Axial images obtained. All CT scans at the facility use one or more dose reduction, viz: automated exposure control, ma/kV adjustment per patient size (including targeted exams where dose is matched to indication, i.e. head), or iterative reconstruction technique. FINDINGS: No midline shift, mass effect, intracranial hemorrhage, hydrocephalus, or extra-axial fluid collection is evident. Patchy hypodensity in periventricular white matter which may be related to ischemic gliotic change the the calvarium has an unremarkable appearance. Mild opacification mastoid sinus. No sinus air-fluid level. IMPRESSION: No acute intracranial finding Dictated by: Adam Hughes MD 08/31/2020 06:42 Adam Hughes MD in [facility] 08/31/2020 06:42
--- NOTE | 2020-08-30 16:55 | HMH.EDGENADL ---
ED Disposition Clinical Impression: Left leg cellulitis Fall Qualifiers: Encounter type: initial encounter Qualified Code(s): W19.XXXA - Unspecified fall, initial encounter Closed head injury Qualifiers: Encounter type: initial encounter Qualified Code(s): S09.90XA - Unspecified injury of head, initial encounter Disposition: Admitted As Inpatient Condition on Discharge: Fair - Critical Care Critical Care Time: No Attestation: On , the high probability of a clinically significant, sudden or life threatening deterioration of the following system(s) required my full and direct attention, intervention and personal management. The time I documented below is in addition to time spent performing reported procedures but includes the following listed in this critical care notation. Medical Decision Making - Medical Records Medical records reviewed: Yes: I reviewed the patient's medical records. - [place] Inquiry Pt receiving controlled substance: No Vital Signs: 08/30/20 16:53 08/30/20 17:07 Temperature 99.2 F Temperature Source Oral Pulse Rate 77 Pulse Rate [Radial] 74 Respiratory Rate 16 Blood Pressure 101/53 L Blood Pressure [Right Arm] 109/45 L Blood Pressure Mean 69 Blood Pressure Mean [Right Arm] 66 Blood Pressure Position [Right Arm] Sitting 02 Sat by Pulse Oximetry 98 97 - Lab Data Lab Results 08/30/20 16:57: WBC 21.0 H*, RBC 3.52 L, Hgb 11.6 L, Hct 33.8 L, MCV 96.0 H, MCH 33.0 H, MCHC 34.4, RDW 14.1, Plt Count 142, MPV 9.1, Neut % (Auto) 90.5 H, Lymph % (Auto) 4.3 L, [place] % (Auto) 4.8, Eos % (Auto) 0.3, Baso % (Auto) 0.1, Neut # (Auto) 19.0 H, Lymph # (Auto) 0.9, [place] # (Auto) 1.0, Eos # (Auto) 0.1, Baso # (Auto) 0.0 08/30/20 16:57: Sodium 126 L, Potassium 4.0, Chloride 93 L, Carbon Dioxide 24, Anion Gap 13.0, BUN 24 H, Creatinine 1.20, Estimated Creat Clear 100, Estimated GFR 61, Est GFR ( Amer) 74, Glucose 152 H, Calcium 8.9, Total Bilirubin 2.7 H, AST 53, ALT 31, Alkaline Phosphatase 62, C-Reactive Protein 258.4 H, Total Protein 7.5, Albumin 3.9, Globulin 3.6 H, Albumin/Globulin Ratio 1.1 Result diagrams: 08/30/20 16:57 08/30/20 16:57 Orders (Tests/Meds): ED MEDICATIONS Generic Name Dose Route Start Last Admin Trade Name Roddyq PRN Reason Stop Dose Admin Sodium Chloride 1,000 mls @ 999 mls/hr 08/30/20 18:00 Sod Chlor 0.9% 1000ml Bag IV 08/30/20 19:00 .Q1H1M MED Vancomycin HCl 1,500 mg 08/30/20 17:59 Vancomycin 1000mg Vial IV 08/30/20 18:00 ONCE ONE Protocol ORDERS Category Date Time Status CT head/brain wo con Stat Cat Scan 08/30/20 16:53 Taken CBC w/Auto Diff [Complete Blood Count Auto Diff] Stat Lab 08/30/20 16:57 Results ESR [Erythrocyte Sedimentation Rate] Stat Lab 08/30/20 16:57 Received Lactic Acid Stat Lab 08/30/20 17:38 Received Blood Culture Stat Micro 08/30/20 17:25 Received Medical Decision Narrative: In summary this is a 60-year-old male presenting to the emergency department with head injury after a fall and incidental left foot diabetabetic infection. Patient clinically stable. Vital signs within normal limits. Concern for intracranial bleed, skull fracture, concussion. Patient takes aspirin. No other blood thinners. Will obtain noncontrast head CT. Concern for infection of the left lower extremity. Will obtain CBC, CMP, ESR, CRP, x-rays. Initial laboratory results concerning for significant leukocytosis at 21,000. Hyponatremia at 127. Patient receiving IV fluids. CRP elevated. Concern for cellulitis and deeper soft tissue infection of the right lower extremity. Patient given IV vancomycin. X-rays do not show evidence of osteomyelitis. Noncontrast head CT shows no intracranial bleed or other injury. General Adult HPI - General Stated complaint: fall Time Seen by Provider: 08/30/20 16:55 - History of Present Illness HPI narrative: 60-year-old male presenting to the emergency department
[2020-08-30 17:10] LABS: Basophils % 0.1 % (0.1-2.0); Eosinophils # 0.1 K/mm3 (0.0-0.4); Eosinophils % 0.3 % (0.1-12.0); Hematocrit 33.8 % (42.0-52.0); Hemoglobin 11.6 g/dL (14.1-18.0); Lymphocytes # 0.9 K/mm3 (0.7-4.5); Lymphocytes % 4.3 % (10-50); Mean Corpuscular HGB Conc 34.4 g/dL (31.8-35.4); Mean Platelet Volume 9.1 fl (7.4-10.4); Monocytes % 4.8 % (1.7-9.3); Neutrophils % 90.5 % (37.0-80.0); Platelet Count 142 K/mm3 (142-424); Red Blood Count 3.52 M/mm3 (4.60-6.20); Red Cell Distribution Width 14.1 % (11.5-17.5)
[2020-08-30 17:11] LABS: MANUAL DIFFERENTIAL MANUAL DIFFERENTIAL (MANUAL DIFF)
[2020-08-30 17:12] LABS: Chloride 93 mmol/L (98-107); Sodium 126 mmol/L (136-145)
[2020-08-30 17:15] LABS: Alanine Aminotransferase 31 U/L (12-78); Albumin Level 3.9 g/dl (3.5-5.0); Albumin/Globulin Ratio 1.1 (1.1-1.8); Alkaline Phosphatase 62 U/L (38-126); Aspartate Amino Transferase 53 U/L (17-59); Bilirubin,Total 2.7 mg/dl (0.2-1.3); Blood Urea Nitrogen 24 mg/dl (9-20); Calcium 8.9 mg/dl (8.4-10.2); Carbon Dioxide 24 mmol/L (22.0-30.0); Creatinine Clearance Estimated 100 mL/min (50-200); Estimated Glomerular Filt Rate 61 ml/min (>60); GFR (African American) 74 ML/MIN (>60); Globulin 3.6 g/dL (1.3-3.2); Glucose 152 mg/dl (74-100); Total Protein,Serum 7.5 g/dl (6.3-8.2)
[2020-08-30 17:21] LABS: C-Reactive Protein 258.4 mg/L (0-4)
[2020-08-30 18:02] LABS: Erythrocyte Sedimentation Rate > 140 mm/hr (0-20)
--- NOTE | 2020-08-30 18:08 | PC.NURSE ---
spoke with [facility] regarding vancomycin dosing. 2gms loading then 1.5gms every 12 hrs.
[2020-08-30 18:19] LABS: Lactic Acid 2.1 mmol/L (0.7-2.1)
[2020-08-30 18:32] LABS: Adenovirus,PCR Not Detected (NotDetected); Bordetella Pertussis Not Detected (NotDetected); Chlamydophila Pneumoniae, PCR Not Detected (NotDetected); Coronavirus 19, PCR Not Detected (NotDetected); Coronavirus 229E Not Detected (NotDetected); Coronavirus NL63 Not Detected (NotDetected); Coronavirus OC43 Not Detected (NotDetected); Coronovirus HKU1,PCR Not Detected (NotDetected); Human Metapneumovirus Not Detected (NotDetected); Influenza A, PCR Not Detected (NotDetected); Influenza AH1, 2009 Not Detected (NotDetected); Influenza AH1, PCR Not Detected (NotDetected); Influenza AH3,PCR Not Detected (NotDetected); Influenza B, PCR Not Detected (NotDetected); Mycoplasma Pneumoniae, PCR Not Detected (NotDetected); Parainfluenza 1, PCR Not Detected (NotDetected); Parainfluenza 2, PCR Not Detected (NotDetected); Parainfluenza 3, PCR Not Detected (NotDetected); Parainfluenza 4, PCR Not Detected (NotDetected); Respiratory Syncytial Virus Not Detected (NotDetected); Rhinovirus/Enterovirus Not Detected (NotDetected)
--- NOTE | 2020-08-30 19:16 | PC.NURSE ---
Dr. Ge s/w Dr. Maldonado. agreed for admisson. Notified extrusion press supervisor on the need for bed assignment.
[2020-08-30 19:21] LABS: Lymphocytes % 7 % (10-50); Monocytes % 5 % (2-9); Neutrophils % 88 % (42-76); Platelet Estimate Normal; RBC Morphology Normal; Total Cells Counted 100
--- NOTE | 2020-08-30 19:39 | PC.NURSE ---
Jessica from [facility] called for an update on pt.
--- NOTE | 2020-08-30 21:09 | PC.NURSE ---
REPORT CALLED TO LOVELY
--- NOTE | 2020-08-30 21:39 | PC.NURSE ---
pt on floor at 2136 via wheel chair. Sisi
[2020-08-30 21:46] LABS: Reflex Lactic Add Lactic Reflex
[2020-08-30 22:15] LABS: Lactic Acid Follow Up (RFLX 1) 1.7 mmol/L (0.7-2.1)
[2020-08-31] VITALS (20 sets, daily range): BP systolic 82–125; BP diastolic 43–70; PULSE 63–77; RESP 12–20; TEMP 36.6–37.7; O2SAT 92–99; BMI 37.5
--- NOTE | 2020-08-31 05:12 | PC.WOUNDNOTE ---
Wound Location: LLE, Lower leg, Length: 8 cm Width:3 cm Depth: n/a Undermining Y/N: n Tunneling cm: Granulation %: Slough/necrotic tissue %: Inflammation/swelling Y/N: y Pain and/or tenderness Y/N: Exudate: Serosanguinous Sanguinous Serosanguinous Seropurulent Purulent Color: Clear Lu Cloudy/milky [place] Yellow Brown [place] Blue Consistency: Thick Thin Amount: None Scant Small Moderate Large Odor Y/N:
--- NOTE | 2020-08-31 05:19 | PC.WOUNDNOTE ---
Wound Location: LLE, lower leg Length: 8 cm Width: 3 cm Depth: Undermining Y/N: n Tunneling cm: Granulation %: Slough/necrotic tissue %: Inflammation/swelling Y/N:Y Pain and/or tenderness Y/N: Patient states no pain Exudate: Serosanguinous Sanguinous Serosanguinous Seropurulent Purulent Color: Clear Lu Cloudy/milky Frederic Red Green Yellow Brown Stewart Blue Consistency: Thick Thin Amount: None Scant Small Moderate Large Odor Y/N:
--- NOTE | 2020-08-31 05:22 | PC.WOUNDNOTE ---
Wound Location: LLE LLE, upper thigh Length: 7 inch diameter Width: Depth: Undermining Y/N: N Tunneling cm: Granulation %: Slough/necrotic tissue %: Inflammation/swelling Y/N: Y Pain and/or tenderness Y/N: Pt states feels no pain Exudate: Serosanguinous Sanguinous Serosanguinous Seropurulent Purulent Color: Clear Lu Cloudy/milky [place] Red Green Yellow Brown Stewart Blue Consistency: Thick Thin Amount: None Scant Small Moderate Large Odor Y/N:
--- NOTE | 2020-08-31 05:23 | PC.WOUNDNOTE ---
Wound Location: Below Left Great toe Amputation Length: 1 CM diameter Width: Depth: Undermining Y/N: N Tunneling cm: Granulation %: Slough/necrotic tissue %: Inflammation/swelling Y/N: Y Pain and/or tenderness Y/N: Pt states feels no pain Exudate: Serosanguinous X Sanguinous Serosanguinous Seropurulent Purulent Color: Clear Lu Cloudy/milky [place] X Red Green Yellow Brown Stewart Blue Consistency: Thick Thin Amount: None Scant X Small Moderate Large Odor Y/N: N
[2020-08-31 06:35] LABS: Basophils % 0.1 % (0.1-2.0); Hematocrit 31.7 % (42.0-52.0); Hemoglobin 10.9 g/dL (14.1-18.0); Lymphocytes # 1.1 K/mm3 (0.7-4.5); Lymphocytes % 8.2 % (10-50); Mean Corpuscular HGB Conc 34.3 g/dL (31.8-35.4); Mean Corpuscular Hemoglobin 32.9 pg (27.0-31.2); Monocytes # 0.9 K/mm3 (0.1-1.0); Monocytes % 6.7 % (1.7-9.3); Neutrophils # 11.1 K/mm3 (1.8-7.8); Neutrophils % 84.9 % (37.0-80.0); Platelet Count 123 K/mm3 (142-424); Red Cell Distribution Width 13.9 % (11.5-17.5); White Blood Count 13.1 K/mm3 (4.8-10.8)
[2020-08-31 06:44] LABS: Chloride 95 mmol/L (98-107); Potassium 3.7 mmoL/L (3.5-5.1); Sodium 129 mmol/L (136-145)
[2020-08-31 06:47] LABS: Anion Gap 11.7 mEq/L (5-15); Blood Urea Nitrogen 23 mg/dl (9-20); Carbon Dioxide 26 mmol/L (22.0-30.0); Creatinine Clearance Estimated 104 mL/min (50-200); Estimated Glomerular Filt Rate 68 ml/min (>60); GFR (African American) 82 ML/MIN (>60); Lactic Acid 1.2 mmol/L (0.7-2.1)
[2020-08-31 06:48] LABS: Calcium 8.3 mg/dl (8.4-10.2); Glucose 149 mg/dl (74-100)
--- NOTE | 2020-08-31 07:11 | PC.NURSE ---
Pt arrived on floor at 2037 in no acute distress. Pt diagnosed with LLE Cellulitis. Wounds and measurements recorded in chart. Patient O x4, patient does not c/o pain. Patient did not receive evening Rx related Computer outage. Will continue to monitor
--- NOTE | 2020-08-31 09:03 | HMH.HP ---
*Admission Date: 08/31/20 *Chief complaint: L Foot Wound *History of present illness: 60-year-old male presenting to the emergency department by EMS. EMS was called to [facility] this afternoon for fall. Patient says he was standing on the steps when he lost his balance and fell. He struck the back of his head on a wall. When EMS arrived he was sitting at the base of the stairs against the wall. Preferred eyes closed. No obvious trauma. Patient was placed onto a backboard and transferred to the emergency department. On arrival he is awake and alert. Says he has headache, dull and throbbing, posterior. No neck pain. No chest pain, abdominal pain, pain in his extremities. He is dealing with a foot wound on his left toe. Diabetic ulcer. It has been more red and swollen than normal. Denies fevers, chills, nausea, vomiting. He has had diarrhea. 08/30/[address]: FINDINGS: No midline shift, mass effect, intracranial hemorrhage, hydrocephalus, or extra-axial fluid collection is evident. Patchy hypodensity in periventricular white matter which may be related to ischemic gliotic change the the calvarium has an unremarkable appearance. Mild opacification mastoid sinus. No sinus air-fluid level. 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 No bony erosive changes are evident. Soft tissue swelling is present along the dorsal aspect of the foot. No fracture or dislocation. No lytic or blastic change. Prominent bony hypertrophy is present along the distal and anterior aspect of the talus Other findings:None. IMPRESSION: Prior amputation at the 1st MTP joint and 2nd PIP joint without bony erosive change. Soft tissue swelling along the dorsal aspect of the midfoot Dictated by: Saul, 60-year-old male lying in bed denies any shortness of breath or chest pain during the night. This morning he is resting quietly said his foot pain is at a tolerable level. Wound culture obtained, will consult podiatry and continue antibiotics [facility] History I have reviewed the patient's past medical history: Yes Medical History: Reports:: Asthma, Coronary Artery Disease, Cerebrovascular Accident, Diabetes Mellitus Type 2, Hyperlipidemia, Hypertension, MRSA, Myocardial Infarction, Peripheral Vascular Disease, Renal Disease, Renal Insufficiency Denies:: Cancer, Diabetes Mellitus Type 1, Internal Pacemaker, Seizures *Have you ever received a pneumonia vaccine?: No *Have you received a flu vaccine this season?: No (PT allergic) Other Medical History: Reports: Arthritis Laterality Cases: Bilateral: Tonsillectomy, Other Other Surgeries: Yes: Cardiac Catheterization, Colonoscopy, Coronary Stent, Other. No: Pacemaker Amputation: Yes (Left toe, great) Fractures: No - *Social History Smoking Status: Never smoker Alcohol Intake: never Alcohol Intake Frequency:: other Substance Use Type: denies use *Occupational Status:: unemployed Housing: assisted living facility Household Members: other *Travel in the last 8 weeks: None Family Hx:: Unable to obtain Review of Systems - Review of Systems Review of systems:: pertinent systems reviewed and negative unless documented below - Constitutional Denies anorexia, Denies chills - Eyes Denies blurry vision, Denies change in vision - ENT Denies abnormal hearing, Denies nasal discharge - *Cardiovascular Denies chest pain, Denies shortness of breath - *Respiratory Denies chest congestion, Denies shortness of breath - *Gastrointestinal Denies abdominal pain, Denies change in bowel habits - *Musculoskeletal Reports abnormal walking, Denies body aches, Denies numbness - Integumentary/Breasts Denies new lesions, Denies sensitivity to light - *Neurologic Reports unsteadiness, Reports headache(s), Denies confusion, Denies dizziness, Denies numbness - Endocrine Denies co
--- NOTE | 2020-08-31 09:04 | CA_ITS ---
APPROVED REPORT Left Lower Extremity Venous Study for DVT. 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 Interstitial edema noted throughout left lower calf. B-Mode imaging of the left groin suggests prominent lymph nodes measuring approximately 2.57 x 0.85 cm. Conclusion No evidence of DVT or superficial thrombophlebitis in the veins scanned of the left lower extremity. Interstitial edema noted throughout left lower calf. B-Mode imaging of the left groin suggests prominent lymph nodes measuring approximately 2.57 x 0.85 cm. Electronically signed by : Adam Hughes MD 08/31/2020 17:25:12
--- NOTE | 2020-08-31 09:08 | CT_ITS ---
PROCEDURE: CT FOOT LT WO CON CLINICAL HISTORY: Osteo First and 2nd left toe ulcers, cellulitis, pain and swelling, possible osteomyelitis. COMPARISON: CT CT LOWER LEG LT WO CON from 08/31/2020 TECHNIQUE: Axial images obtained with sagittal and coronal reformats. All CT scans at the facility use one or more dose reduction, viz: automated exposure control, ma/kV adjustment per patient size (including targeted exams where dose is matched to indication, i.e. head), or iterative reconstruction technique. FINDINGS: CT left foot: Hypertrophic changes of the sustentaculum angie/medial facet. Degenerative changes anterior subtalar joint. Small bone island within the medial cuneiform. There has been a prior amputation at the 1st MTP joint. There is some subchondral lucency noted at the distal aspect of the 1st metatarsal however, no obvious erosive change. The subchondral lucency may be related to focal osteopenia. There is diffuse soft tissue swelling at the 1st MTP stump area with some minimal dystrophic soft tissue calcification. It is difficult to evaluate for abscess without IV contrast. There may be a small amount of fluid around the distal aspect of the 1st metatarsal as seen on the sagittal reformatted images. There does appear to be some subcutaneous fluid along the dorsal aspect of the distal 1st metatarsal. There is diffuse subcutaneous soft tissue swelling involving the entire foot and ankle. There has been a prior amputation at the 2nd PIP joint. Soft tissue defects consistent with ulcerations are present at this region. No bony erosive change apparent. Soft tissue swelling is present at this area. No acute fracture or dislocation. CT left lower extremity: No fracture or dislocation. No lytic or blastic change no bony erosive change. There is mild diffuse soft tissue swelling of the left lower extremity greater in the pretibial region in the mid and proximal aspect but circumferential within the lower aspect. No soft tissue mass or localized fluid collection within the tib fib apparent. IMPRESSION: 1. No convincing evidence of osteomyelitis with no bony erosive change evident. 2. The prior amputation at the 1st MTP joint. There is suggestion of a small amount of fluid around the distal aspect of the 1st metatarsal raising the question of abscess at this region. Abscess evaluation is limited without IV contrast. 3. Status post amputation at the 2nd PIP joint with ulceration of the stump and soft tissue swelling but no obvious bony destructive process. 4. There is diffuse subcutaneous soft tissue swelling of the leg ankle and foot with a focal protrudes of the soft tissue swelling along the dorsal and distal aspect of the 1st metatarsal suggesting a fluid collection at this area. No gas evident within the collection. Dictated by: Adam Hughes MD 08/31/2020 11:32 Adam Hughes MD in [facility] 08/31/2020 11:32
--- NOTE | 2020-08-31 09:18 | HMH.PHACONS ---
- Pharmacy Consult Date: 08/31/20 Time: 09:18 Referring provider: DR. NEAL Reason for Consult:: VANCOMYCIN DOSING Allergies and ADEs:: Allergies Allergy/AdvReac Type Severity Reaction Status Date / Time morphine [MORPHINE] Allergy Severe I-ITCHING Verified 08/30/20 23:30 influenza virus vaccine qs Allergy Unknown Verified 08/30/20 23:30 2019- (6 mos and up) allergy [From Fluarix Quad reaction (PF)] Home Medications:: Home Medications Medication Instructions Recorded Confirmed Type ticagrelor 90 mg tablet 90 mg PO BID #180 tab 05/22/18 08/30/20 Rx dilTIAZem HCL [Diltiazem 24Hr ER 120 mg PO DAILY 02/18/19 08/30/20 History (Cd)] Albuterol Sulfate [Albuterol 2 puffs IH Q4HP PRN 02/19/19 08/30/20 History Sulfate Hfa] Insulin Aspart Prot/Insuln Asp 30 unit SQ 0700 02/19/19 08/30/20 History [Novolog Mix 70/30 Flexpen 100 Units/mL 3mL] Fluticasone Furoate [Arnuity 100 mcg IH BID 04/27/19 08/30/20 History Ellipta] Acetaminophen [Tylenol 500mg 1,000 mg PO Q6HP PRN 04/29/19 08/30/20 History tablet] Calcium Carbonate [Antacid] 200 mg PO DAILYP PRN 04/29/19 08/30/20 History zinc sulfate 50 mg zinc (220 mg) 50 mg PO DAILY 05/18/19 08/30/20 History tablet atorvastatin 80 mg tablet 80 mg PO HS #90 tab 02/21/20 08/30/20 Rx hydrochlorothiazide 25 mg tablet 25 mg PO DAILY #90 tab 02/21/20 08/30/20 Rx icosapent ethyl 1 gram capsule 1 g PO BID #180 cap 02/21/20 08/30/20 Rx carvedilol 6.25 mg tablet 12.5 mg PO BID tab 03/22/20 08/30/20 History amitriptyline 10 mg tablet 10 mg PO DAILY tab 04/18/20 08/30/20 History citalopram 20 mg tablet 20 mg PO DAILY tab 04/18/20 08/30/20 History ascorbic acid (vitamin C) 500 mg 500 mg PO DAILY #90 cap 04/19/20 08/30/20 Rx capsule aspirin 81 mg tablet,delayed 81 mg PO DAILY #90 tab 04/19/20 08/30/20 Rx release Insulin Aspart Prot/Insuln Asp 40 units SQ 1600 08/30/20 08/31/20 History [Insulin Aspart Prot ([id number])] Isosorbide Mononitrate [Isosorbide 120 mg PO DAILY 08/30/20 08/30/20 History Mononitrate ER] Pantoprazole Sodium 40 mg PO DAILY 08/30/20 08/30/20 History Ranolazine [Ranolazine ER] 1,000 mg PO BID 08/30/20 08/30/20 History lisinopriL [Lisinopril] See Rx Instructions .ROUTE .COMPLEX 08/30/20 08/30/20 History Height: 1.68 m Weight: 105.942 kg Laboratory Results:: Laboratory Results - last 24 hr 08/30/20 16:57: WBC 21.0 H*, RBC 3.52 L, Hgb 11.6 L, Hct 33.8 L, MCV 96.0 H, MCH 33.0 H, MCHC 34.4, RDW 14.1, Plt Count 142, MPV 9.1, Neut % (Auto) 90.5 H, Lymph % (Auto) 4.3 L, [place] % (Auto) 4.8, Eos % (Auto) 0.3, Baso % (Auto) 0.1, Neut # (Auto) 19.0 H, Lymph # (Auto) 0.9, [place] # (Auto) 1.0, Eos # (Auto) 0.1, Baso # (Auto) 0.0, Total Counted 100, Neutrophils % (Manual) 88 H, Lymphocytes % (Manual) 7 L, Monocytes % (Manual) 5, Platelet Estimate Normal, RBC Morphology Normal 08/30/20 16:57: Sodium 126 L, Potassium 4.0, Chloride 93 L, Carbon Dioxide 24, Anion Gap 13.0, BUN 24 H, Creatinine 1.20, Estimated Creat Clear 100, Estimated GFR 61, Est GFR ( Amer) 74, Glucose 152 H, Calcium 8.9, Total Bilirubin 2.7 H, AST 53, ALT 31, Alkaline Phosphatase 62, C-Reactive Protein 258.4 H, Total Protein 7.5, Albumin 3.9, Globulin 3.6 H, Albumin/Globulin Ratio 1.1 08/30/20 16:57: ESR > 140 H 08/30/20 17:38: Lactate 2.1 08/30/20 18:26: Chlamy pneumoniae PCR Not detected, Adenovirus (PCR) Not detected, B. pertussis DNA (PCR) Not detected, Coronavirus OC43 (PCR) Not detected, Coronavirus HKU1 (PCR) Not detected, Coronavirus 229E (PCR) Not detected, SARS-CoV-2 (PCR) Not detected, Coronavirus NL63 (PCR) Not detected, Human Metapneumovir PCR Not detected, Influenza A (H1) PCR Not detected, Influ A (H1N1/09) PCR Not detected, Influenza A (H3) PCR Not detected, Influenza Type A (PCR) Not detected, Influenza Type B (PCR) Not detected, M. pneumoniae (PCR) Not detected, Parainfluenza 1 (PCR) Not detected, Parainfluenza 2 (PCR) Not detected, Parainfluenza 3 (PCR) Not d
--- NOTE | 2020-08-31 09:25 | SW/DCPLANNER ---
Addendum entered by Karen [place] 09/02/20 09:33: This patient will discharge to [facility] today. COVID swab was completed yesterday (NEGATIVE) and has been faxed to Elizabeth at [facility]. I will also inform Saida/Kishan at [facility] of disposition. Addendum entered by [facility] 09/01/20 09:46: This patient has been accepted to [facility] once medically stable for discharge. Patient is agreeable with plan. Patient could potentially discharge tomorrow pending no setbacks. Addendum entered by Karen Blue [place] 08/31/20 14:13: Podiatry is planning surgery for this patient. Patient may not be able to return to [facility] level at time of discharge. I have faxed information to Elizabeth with [facility]. Original Note: This patient currently resides at [facility]. I will continue to follow up with this patient and [facility] once patient is stable for discharge. If placement is needed at discharge I will speak with patient and patients family. Discharge date is unknown at this time.
[2020-08-31 09:27] LABS: Hemoglobin A1C 7.3 % (4.0-6.0)
--- NOTE | 2020-08-31 09:40 | PC.NURSE ---
Rounded w/ Dr. Alas this AM. to place orders for doppler, CT of left foot and [facility] consult. Cultured obtained from ulcer on left great toe that is draining, sent to lab. Spoke to Puma in [facility]'s office @ [phone] about pt.
--- NOTE | 2020-08-31 09:45 | HMH.PHAVTE ---
[facility] Pharmacy VTE Monitoring - Patient Demographics Admission date: 08/31/20 Report Date: 08/31/20 Time: 09:45 Allergies/Adverse Reactions: Patient Allergies morphine [MORPHINE] Allergy (Severe, Verified 08/30/20 23:30) I-ITCHING influenza virus vaccine qs 2018- (6 mos and up) [From Fluarix Quad [id number] (PF)] Allergy (Verified 08/30/20 23:30) Unknown allergy reaction Height: 1.68 m Weight: 105.942 kg Patient Problems: Current Active Problems Fall (Acute) Closed head injury (Acute) Left leg cellulitis (Acute) - VTE Risk Labs: VTE Related Lab Results Hgb 10.9 g/dL (14.1-18.0) L 08/31/20 06:20 Hct 31.7 % (42.0-52.0) L 08/31/20 06:20 Plt Count 123 K/mm3 (142-424) L 08/31/20 06:20 BUN 23 mg/dl (9-20) H 08/31/20 06:20 Creatinine 1.10 mg/dl (0.66-1.25) 08/31/20 06:20 Estimated Creat Clear 104 mL/min (50-200) 08/31/20 06:20 Was VTE Risk Assessment Performed: Yes VTE Score: 4 VTE Risk Level: Low Risk - Prophylaxis Types of VTE Prophylaxis: TEDS Knee High (SHERICE HOSE ORDER PLACED)
--- NOTE | 2020-08-31 11:21 | HMH.PHAINT ---
MEDICATION RECONCILIATION COMPLETED ON PATIENT USING MAR FROM [facility]. -BARRERA BARBA, MAUREEND
--- NOTE | 2020-08-31 12:43 | HMH.ORTHOCON ---
*Admission Date: 08/31/20 *Reason for consult:: Left foot DM foot ulcer, Cellulitis *History of present illness: 60-year-old male presenting to the emergency department by EMS. EMS was called to [facility] this afternoon for fall. Patient says he was standing on the steps when he lost his balance and fell. He struck the back of his head on a wall. When EMS arrived he was sitting at the base of the stairs against the wall. Preferred eyes closed. No obvious trauma. Patient was placed onto a backboard and transferred to the emergency department. On arrival he is awake and alert. Says he has headache, dull and throbbing, posterior. No neck pain. No chest pain, abdominal pain, pain in his extremities. He is dealing with a foot wound on his left toe. Diabetic ulcer. It has been more red and swollen than normal. Denies fevers, chills, nausea, vomiting. He has had diarrhea. Podiatry consult Patient resting in bed, NPO for consult and for surgery this afternoon for I&D and possible 2nd toe amputation. Left lower leg and foot 2+ edema, palpable pedal DP/PT pulses bilaterally. Left hallux has an ulcer to hallux amp site. Dark purple tissue surround an ulceration with sanguineous drainage and was cultured today. 2nd toe has distal tip amputation from [facility], patient not sure of the date. the distal tip and plantar surface has ulcer that looks to have started out as a callus. Loose skin from the drainage. Will clean up the sites with betadine and prepare him for surgery. Verbal and written consent signed at the bedside. [facility] History I have reviewed the patient's past medical history: Yes Medical History: Reports:: Asthma, Coronary Artery Disease, Cerebrovascular Accident, Diabetes Mellitus Type 2, Hyperlipidemia, Hypertension, MRSA, Myocardial Infarction, Peripheral Vascular Disease, Renal Disease, Renal Insufficiency Denies:: Cancer, Diabetes Mellitus Type 1, Internal Pacemaker, Seizures *Have you ever received a pneumonia vaccine?: No *Have you received a flu vaccine this season?: No (PT allergic) Other Medical History: Reports: Arthritis Laterality Cases: Bilateral: Tonsillectomy, Other Other Surgeries: Yes: Cardiac Catheterization, Colonoscopy, Coronary Stent, Other. No: Pacemaker Amputation: Yes (Left toe, great) Fractures: No - *Social History Smoking Status: Never smoker Alcohol Intake: never Alcohol Intake Frequency:: other Substance Use Type: denies use *Occupational Status:: unemployed Housing: assisted living facility Household Members: other *Travel in the last 8 weeks: None Family Hx:: Unable to obtain Review of Systems - Constitutional Reports daytime sleepiness - Eyes Denies change in vision - ENT Denies abnormal hearing - *Cardiovascular Reports leg swelling (Left lower extremity cellulitis), Denies chest pain, Denies shortness of breath - *Respiratory Denies chest congestion, Denies cough - *Gastrointestinal Denies abdominal pain - *Genitourinary Denies difficulty urinating - *Musculoskeletal Reports abnormal walking (Antalgic gait related to left foot swelling and DM ulcers) - Integumentary/Breasts Reports redness, Reports skin ulcer (DM ulcers to left hallux amp and second toe distal tip) - *Neurologic Reports abnormal walking, Reports unsteadiness, Reports headache(s), Denies abnormal hearing, Denies confusion, Denies dizziness, Denies numbness - Psychiatric Denies anxiety, Denies confusion Meds Home Medications Medication Instructions Recorded Confirmed Type ticagrelor 90 mg tablet 90 mg PO BID #180 tab 05/22/18 08/30/20 Rx dilTIAZem HCL [Diltiazem 24Hr ER 120 mg PO DAILY 02/18/19 08/30/20 History (Cd)] Albuterol Sulfate [Albuterol 2 puffs IH Q4HP PRN 02/19/19 08/30/20 History Sulfate Hfa] Insulin Aspart Prot/Insuln Asp 30 unit SQ 0700 02/19/19 08/30/20 History [Novolog Mix 70/30 Flexpen 100 Units/mL 3mL] Fluticasone Furoate [Arnuity 1 puff IH BID 04/27/19
--- NOTE | 2020-08-31 13:23 | PC.NURSE ---
Pt down to OR @ 3371
--- NOTE | 2020-08-31 13:39 | HMH.ANESCL ---
[facility] Anesthesia Checklist - Patient Identification Patient Identification: Arm Band - Structural Data Admitted From: Inpatient Planned Operative Procedure/s: I&D Left Foot Consent for Planned Operative Procedure(s) Verified: Yes Verified Documents: Surgical Consent, History and Physical - NPO Status Verified Time NPO: 07:30 - Additional verifications Anesthesia Reactions: No - Airway Assessment C-Spine Mobility Assessed: Yes (mp3) TMJ Mobility Assessed: Yes Dentition: Poor Dentition - Neurological Assessment Level of Consciousness: Awake, Alert - Anesthesia Plan Anesthesia Risk discussed: Yes Anesthesia Plan: Verified ASA Class: III Anesthesia Type: General [facility] History I have reviewed the patient's past medical history: Yes Medical History: Reports:: Asthma, Coronary Artery Disease, Cerebrovascular Accident, Diabetes Mellitus Type 2, Hyperlipidemia, Hypertension, MRSA, Myocardial Infarction, Peripheral Vascular Disease, Renal Disease, Renal Insufficiency Denies:: Cancer, Diabetes Mellitus Type 1, Internal Pacemaker, Seizures *Have you ever received a pneumonia vaccine?: No *Have you received a flu vaccine this season?: No (PT allergic) Other Medical History: Reports: Arthritis Anesthesia experience/problems:: nac Laterality Cases: Bilateral: Tonsillectomy, Other Other Surgeries: Yes: Cardiac Catheterization, Colonoscopy, Coronary Stent, Other. No: Pacemaker Amputation: Yes (Left toe, great) Fractures: No - *Social History Smoking Status: Never smoker Alcohol Intake: never Alcohol Intake Frequency:: other Substance Use Type: denies use *Occupational Status:: unemployed Housing: assisted living facility Household Members: other *Travel in the last 8 weeks: None Family Hx:: Unable to obtain
--- NOTE | 2020-08-31 15:30 | SUR.OPER ---
08/31/20 @ 1531, 7mm flat jenna drain inserted by Dr. Flower in left medial foot.
--- NOTE | 2020-08-31 15:56 | P.PN_ITS ---
[facility] Anesthesia Record Part I Intake, IV Amount: 1,200 Estimated blood loss (mL): 100 Urine output (mL): 0 Blood Pressure: 82/50 SaO2: 92 Pulse Rate: 64 Respiratory Rate: 12 Temperature: 97.8 F Patient is:: Awake, Stable Stable to PACU at:: 15:50
--- NOTE | 2020-08-31 15:56 | XR_ITS ---
PROCEDURE: XR FOOT LT MIN 3V CLINICAL INDICATION: Post op amp Follow-up amputation COMPARISON: CR XR FOOT LT MIN 3V from 02/19/2019 CR XR FOOT LT MIN 3V from 04/27/2019 CR XR FOOT LT MIN 3V from 04/29/2019 CR XR FOOT LT MIN 3V from 08/30/2020 FINDINGS: There has been amputation at the mid shaft of the 1st metatarsal and at the 2nd metatarsophalangeal joint. Postsurgical drain is present along the anterior aspect of the amputation site at the 1st metatarsal IMPRESSION: Status post amputation at the 1st metatarsal and 2nd metatarsophalangeal joint Dictated by: Adam Hughes MD 08/31/2020 16:55 Adam Hughes MD in [facility] 08/31/2020 16:55
--- NOTE | 2020-08-31 15:57 | HMH.OPNOTE ---
Date of procedure: 08/31/20 Pre-op Diagnosis:: 1. Left foot abscess 2. Left foot diabetic infection 3. Left lower extremity cellulitis 4. Left foot osteomyelitis Post-op Diagnosis:: Same Procedure performed:: 1. Left foot incision and drainage 2. Left first metatarsal head resection (bone biopsy) 3. Left second toe amputation, irrigation and debridement DM ulcer 4. Left application of GAUDENCIO drain Surgeon:: Darleen Flower DPM Anesthesia: GETA, local (30cc 0.5% marcaine plain) Estimated blood loss (mL): 30 Clinical Note:: Patient is a 60-year-old diabetic male who was admitted 08/30/2020 after a fall. Patient had a white count of over 21 upon admission. He had a left lower extremity cellulitis. Labs, x-ray, venous duplex and CT scan of the left lower extremity were performed. No obvious signs of osteomyelitis but suspicion for abscess. Purulent drainage at the bedside. Discussed with patient doing an I&D and amputation if needed. We discussed conservative versus surgical treatment options. Conservative treatment options include local wound care, oral and IV antibiotics, change in shoe wear, taping/padding, and off-loading. Discussed that patient would benefit from a wider and deeper shoe wear to accommodate the deformity. Patient understands that there is a chance that the toes can migrate to fill the gap or the foot may change shape after surgery. Patient also understands that they could have wound healing complications including delayed healing and infection. We discussed that if the wound does not heal, it is possible that they may need a more proximal amputation and could result in further loss of digits, loss of partial foot or loss of leg. We discussed the risks and benefits in great detail. Other surgical risks include: prolonged pain and swelling, further infection requiring oral or IV antibiotics, delay in healing of soft tissue or bone, nerve or blood vessel damage, CRPS/RSD, DVT, anesthesia complications, and even . All questions answered. Patient verbalized understanding. Consent obtained. Medical clearance per primary team, Dr. Alas. Operative findings:: Left foot 2+ pitting edema. Left lower extremity cellulitis with palpable popliteal lymph nodes. There was an opening with necrotic skin localized over the first metatarsal head. Creamy purulent drainage expressed. Diabetic ulcer noted to the tip of the left second toe which had been previously partially amputated. Under the ulcer was exposed bone. The bone was soft and crumbly. Bone of the proximal phalanx was easily broken in half without a saw. First metatarsal head had cortical erosions and was soft behind the cartilage. A portion was transected and the bone was soft and easy to cut through. Suspicion for osteomyelitis. Some tracking noted. There was creamy serosanguineous and purulent drainage noted. Operative note:: On this date and time the patient was deemed an appropriate surgical candidate. With informed consent time patient was transferred from the preoperative holding area to the operating theater. General anesthesia induced. Left lower extremity was prepped and draped in normal sterile fashion. 30 cc of half percent Marcaine plain were infiltrated in ankle block. IV Vancomycin infusing from floor. Left 2nd toe amputation, irrigation and debridement: Attention was directed to the left second toe where an ulcer was noted at the distal toe tip measuring approximately 1.5 x 1 cm. A racquetball incision was mapped out encircling the ulcer. The ulcer was sharply excised. There was underlying proximal phalanx head noted. It was soft and crumbly. Utilizing a 15 blade dissection was carried down sharply to the level of the bone around the base which was disarticulated from the second metatarsal head. The phalanx bone was soft and crumbly and had minimal malodor to it. Portion of it was cut and sent for bone culture and the other part was sent for bone biopsy for pathology. A
[2020-08-31 16:04] LABS: POC Glucose,Bedside 116 (70-110)
--- NOTE | 2020-08-31 17:19 | PC.NURSE ---
Pt returned from PACU @ 1615. Is A&O4, still a little drowsy but easily awakens. Denies pain. L Foot propped on pillow w/ minimal amount of serosang drainage present in GAUDENCIO drain. Popliteal pulse +3. Dressing to L foot C/D/I. Scud in place to RLE. Lungs diminished upon auscultation. IS @ bedside, educated, he will need re-education as he wakes up more and freqent encouragement to use. HR regular. Abdomen soft, non-tender w/ active BS Pt has had two BM's this shift. Prior to surgery he was able to ambuate w/ standby assistance back and forth to bathroom. He has yet to get OOB post-op. He is currently lying in bed. Call butt w/in reach. No needs voiced.
[2020-09-01] VITALS (18 sets, daily range): BP systolic 101–143; BP diastolic 54–73; PULSE 66–77; RESP 16–20; TEMP 36.5–37.7; O2SAT 94–100
--- NOTE | 2020-09-01 04:55 | PC.NURSE ---
A&OX4, CAN BE CONFUSED AT TIMES. PT TOLERATING RA WELL T/O SHIFT. PT L FOOT WITH DRESSING PRESENT, CDI. DRAIN PRESENT, 20ML EMPTIED THIS SHIFT. FOOT ELEVATED ON 2 PILLOWS T/O SHIFT. PT HAS NOT C/O PAIN THUS FAR. PT HAS RESTED WITH EYES CLOSED MAJORITY OF SHIFT. PT INSTRUCTED ON USE OF IS. PT ABLE TO MOVE HIMSELF IN BED. PT STOOD TO USE URINAL WITH HELP OF STAFF, REMAINED NON WEIGHT BEARING TO L FOOT. SCUD PRESENT TO R LEG. VSS WILL CONTINUE TO MONITOR.
[2020-09-01 06:55] LABS: Basophils % 0.1 % (0.1-2.0); Hematocrit 24.9 % (42.0-52.0); Lymphocytes # 0.9 K/mm3 (0.7-4.5); Mean Corpuscular HGB Conc 35.8 g/dL (31.8-35.4); Mean Corpuscular Hemoglobin 33.7 pg (27.0-31.2); Mean Corpuscular Volume 94.2 fl (80-94); Mean Platelet Volume 9.1 fl (7.4-10.4); Monocytes # 1.1 K/mm3 (0.1-1.0); Monocytes % 8.1 % (1.7-9.3); Neutrophils # 11.3 K/mm3 (1.8-7.8); Neutrophils % 84.7 % (37.0-80.0); Platelet Count 113 K/mm3 (142-424); Red Blood Count 2.65 M/mm3 (4.60-6.20); Red Cell Distribution Width 14.2 % (11.5-17.5); White Blood Count 13.3 K/mm3 (4.8-10.8)
[2020-09-01 06:57] LABS: Chloride 99 mmol/L (98-107); Potassium 3.6 mmoL/L (3.5-5.1); Sodium 130 mmol/L (136-145)
[2020-09-01 06:59] LABS: POC Glucose,Bedside 199 (70-110)
[2020-09-01 07:00] LABS: Alanine Aminotransferase 20 U/L (12-78); Albumin Level 2.9 g/dl (3.5-5.0); Albumin/Globulin Ratio 0.9 (1.1-1.8); Alkaline Phosphatase 56 U/L (38-126); Anion Gap 11.6 mEq/L (5-15); Aspartate Amino Transferase 45 U/L (17-59); Bilirubin,Total 1.5 mg/dl (0.2-1.3); Blood Urea Nitrogen 32 mg/dl (9-20); Carbon Dioxide 23 mmol/L (22.0-30.0); Creatinine Clearance Estimated 104 mL/min (50-200); Estimated Glomerular Filt Rate 68 ml/min (>60); GFR (African American) 82 ML/MIN (>60); Globulin 3.1 g/dL (1.3-3.2)
[2020-09-01 07:01] LABS: Glucose 181 mg/dl (74-100)
[2020-09-01 07:06] LABS: C-Reactive Protein 144.7 mg/L (0-4)
[2020-09-01 07:18] LABS: Erythrocyte Sedimentation Rate > 140 mm/hr (0-20)
[2020-09-01 07:44] LABS: Hemoglobin 8.9 g/dL (14.1-18.0)
[2020-09-01 07:45] LABS: Calcium 7.4 mg/dl (8.4-10.2)
--- NOTE | 2020-09-01 08:28 | HMH.ORTHPN ---
Subjective Date: 09/01/20 Time: 07:45 Principal diagnosis: LLE cellulitis, abscess Interval history: Patient is awake and alert. Sitting up, asking questions. He denies pain to the LLE. He denies N/V, F/C, SOB/CP. GAUDENCIO drain intact. PN: Obj Ex Vital signs: Temp Pulse Resp BP Pulse Ox 97.7 F 68 18 106/58 L 99 09/01/20 07:35 09/01/20 07:35 09/01/20 07:35 09/01/20 07:35 09/01/20 07:35 - Constitutional no acute distress - Routine HEENT Exam Head: Present: normocephalic Eye: Present: EOMI - Routine Neck Exam Present: supple - Routine Respiratory Exam Absent: respiratory distress - Routine Cardiovascular Exam Present: RRR - Routine Extremities Exam Present: edema - Detailed Lower Extremity Exam Foot/Toes: Left amputation Top foot image: 1 - LLE has decreased edema and erythema. Small smaller. Less pitting edema. GAUDENCIO drain intact to medial proximal incision, <10cc sanginous outpt. Sutures intact to multiple incision sites. There is now a left 2nd toe amp, 1st metatarsal head resection (previous hallux amp). No pain to palpation. Palpable pedal pulses noted. No calf or thigh pain noted b/l. Progress Note: A&P (1) Non compliance with medical treatment Status: Acute (2) Diabetic foot infection Status: Acute (3) Diabetic foot ulcer Status: Acute (4) Obesity (BMI 30-39.9) Status: Acute (5) Elevated erythrocyte sedimentation rate Status: Acute (6) Diabetes mellitus Status: Acute (7) Diabetic neuropathy Status: Acute (8) Diabetic ulcer of left great toe Status: Acute (9) History of partial amputation of toe Status: Acute (10) Fall Status: Acute Assessment and Plan for All Diagnoses:: Sx 08/31/20, s/p left foot incision and drainage, first metatarsal head resection (bone biopsy), second toe amputation, application of GAUDENCIO drain POD#1 08/31/20, Intra-op Specimens: Left foot wound culture Left second toe bone culture, bone pathology Left first metatarsal head bone culture, bone pathology margin Labs, 08/30/20: wbc 21.0, esr > 140, crp 258.4, glucose 152, Ha1c 7.3% Labs, 09/01/20: wbc 13.3, esr > 140, crp 144.7, glucose 181, creatinine 1.1, gfr 68 Overall the left lower extremity looks less swollen and red today. Skin cleansed with Betadine. Betadine packed into the dorsal incision and applied to all incisions, along with a dry sterile dressing. Patient understands the drain will remain in place until follow-up. It will need to be emptied. Consult case mgmt: post op shoe, DME (walker). Plan: 1. Maintain dressing clean dry and intact to left foot, reinforce as necessary. 2. Daily dressing changes: cleanse foot. Dry. Apply betadine soaked packing to opening in dorsal left foot. Then apply betadine soaked 4x4s, followed by a dry sterile dressing (4x4, kerlix, Jose Luis). 3. Empty GAUDENCIO drain per shift and as needed. 4. PWB to left foot in post op shoe with walker. 5. Continue antibiotics per PCP team. If going back to [facility] will need oral abx. History of sx, 02/19/19: Enterococcus faecalis, strep and MRSA and 04/29/2019: MRSA (left hallux bone amp) Recommend coverage for MRSA/previous bacteria. Recommend MRSA (Doxycline 100mg BID or Clindamycin 300mg TID x 2 weeks) and recommend Strep/Enterococcus (Levofloxacin 750mg daily x 2 weeks). 6. Recommend wound care and lymphedema clinic when discharged. 7. Patient is to follow up in one week with [facility]. 8. Follow up in 1-2 weeks with Podiatry. Thank you for allowing me to assist in the care of this patient. Approximately 25 minutes was spent on encounter including patient education and counseling.
--- NOTE | 2020-09-01 09:32 | HMH.ACPN2 ---
Internal Medicine - PN: Subj *Date: 09/01/20 *Time: 09:00 Interval history: pt laying in bed, states he feels well today, states dr marlow just in and changed dressing Exam Vital signs and Labs for Last 24 Hours: Temp Pulse Resp BP Pulse Ox 97.7 F 68 18 106/58 L 99 09/01/20 07:35 09/01/20 07:35 09/01/20 07:35 09/01/20 07:35 09/01/20 07:35 Laboratory Results - last 24 hr 08/31/20 15:57: POC Glucose 116 H 09/01/20 05:44: WBC 13.3 H, RBC 2.65 L, Hgb 8.9 L D, Hct 24.9 L, MCV 94.2 H, MCH 33.7 H, MCHC 35.8 H, RDW 14.2, Plt Count 113 L, MPV 9.1, Neut % (Auto) 84.7 H, Lymph % (Auto) 7.0 L, [place] % (Auto) 8.1, Eos % (Auto) 0.0 L, Baso % (Auto) 0.1, Neut # (Auto) 11.3 H, Lymph # (Auto) 0.9, [place] # (Auto) 1.1 H, Eos # (Auto) 0.0, Baso # (Auto) 0.0 09/01/20 05:44: Sodium 130 L, Potassium 3.6, Chloride 99, Carbon Dioxide 23, Anion Gap 11.6, BUN 32 H D, Creatinine 1.10, Estimated Creat Clear 104, Estimated GFR 68, Est GFR ( Amer) 82, Glucose 181 H D, Calcium 7.4 L D, Total Bilirubin 1.5 H, AST 45, ALT 20 D, Alkaline Phosphatase 56, C-Reactive Protein 144.7 H, Total Protein 6.0 L, Albumin 2.9 L, Globulin 3.1, Albumin/Globulin Ratio 0.9 L 09/01/20 05:44: ESR > 140 H 09/01/20 06:47: POC Glucose 199 H I & O for Last 24 hours: Intake & Output 08/29/20 08/30/20 08/31/20 09/01/20 11:59 11:59 11:59 11:59 Intake Total 2840 / 2840 5739 / 5739 Output Total 420 / 420 Balance 2840 / 2840 5319 / 5319 Weight 233 lb 9 oz 233 lb 11.04 oz Microbiology Reports for the Last 24 Hours: Microbiology 08/31/20 08:56 Foot,Left - Drainage Gram Stain - Final 08/31/20 08:56 Foot,Left - Drainage Wound Culture - Preliminary Gram Positive Cocci 08/30/20 17:25 Blood Blood Culture - Preliminary Gram Positive Cocci 08/30/20 17:25 Blood Blood Culture - Preliminary Gram Positive Cocci 08/31/20 14:36 Foot,Left - Left Gram Stain - Final - Constitutional no acute distress, obese - *Routine HEENT Exam Head: Present: normocephalic Eye: Present: PERRL ENT: Present: mucous membranes moist - *Routine Neck Exam Present: supple. Absent: lymphadenopathy - *Routine Respiratory Exam Present: CTA bilaterally - *Routine Cardiovascular Exam Present: RRR - *Routine Abdominal Exam Present: soft, normoactive bowel sounds. Absent: tenderness - *Routine Extremities Exam Absent: cyanosis, clubbing, edema - *Routine Skin Exam Present: warm, wounds. Absent: rash Comments: dressing to left lower ext - *Routine Neurological Exam Present: alert, oriented X3 - Routine Psychiatric Exam Present: normal affect Assessment and Plan (1) Non compliance with medical treatment Status: Acute Category: Medical Code(s): Z91.19 - Patient's noncompliance with other medical treatment and regimen (2) Diabetic foot infection Status: Acute Category: Medical Code(s): E11.628 - Type 2 diabetes mellitus with other skin complications; L08.9 - Local infection of the skin and subcutaneous tissue, unspecified (3) Diabetic foot ulcer Status: Acute Qualifiers: Diabetic foot ulcer location: toe Diabetes mellitus type: other specified (including LORRAINE) Laterality: left Non-pressure ulcer stage: with fat layer exposed Qualified Code(s): E13.621 - Other specified diabetes mellitus with foot ulcer; L97.522 - Non-pressure chronic ulcer of other part of left foot with fat layer exposed Category: Medical Code(s): E11.621 - Type 2 diabetes mellitus with foot ulcer; L97.509 - Non-pressure chronic ulcer of other part of unspecified foot with unspecified severity (4) Obesity (BMI 30-39.9) Status: Acute Category: Medical Code(s): E66.9 - Obesity, unspecified (5) Elevated erythrocyte sedimentation rate Status: Acute Category: Medical Code(s): R70.0 - Elevated erythrocyte sedimentation rate (6) Diabetes dex
--- NOTE | 2020-09-01 11:30 | HMH.ANESII ---
[facility] Anesthesia Record Part II Discharge Time: 16:20 Destination: floor PACU nurse assessment reviewed?: Yes Patient Condition:: Good Anesthesia Complications:: None Swallowing reflex intact?: Yes Cyanosis?: No Blood Pressure: 101/56 Pulse Rate: 66 Temperature: 99.4 F Mental Status: Alert & Oriented Pain level:: 0 Nausea and/or vomitting:: None Intake, IV Amount: 500
--- NOTE | 2020-09-01 11:42 | HMH.PTEV ---
Physical Therapy Evaluation Rehab PT IP Evaluation Start: 08/31/20 15:53 Freq: ONCE Status: Active Protocol: Document 09/01/20 11:00 MAL (Rec: 09/01/20 11:42 MAL [id number]) Subjective/History History History This is the initial IP PT evaluation for Mayo Jain . Pt is a 60 y/o male who resides at local personal halfway. Pt had recent I&D on L foot and is PWB on heel for ambulation Subjective Subjective no complaints from PT Rehab PT IP Eval Objective Appearance Patient Behavior Appropriate,Cooperative Patient Orientation Place,Name,Birthday Difficulty following instructions none Speech Pattern Clear Ambulation Patient Able to Ambulate Yes Ambulation Observation IP General Gait Pattern Observation Antalgic Gait,Decrease Weight Bear (L) Ambulation Distance (feet) 5 Ambulation Assistive Device None Ambulation Ability Contact Guard/Hand Hold Balance Ability to Arise Able, uses arms to help Sitting Balance Steady, safe Standing Balance Steady, wide stance Dynamic Sitting Balance Ability Good Dynamic Standing Balance Ability Poor Transfers Bed Transfer Ability Independent Chair Transfer Ability Independent Sit to Stand Bed Transfer Ability Contact Guard/Hand Hold Sit to Stand Chair Transfer Ability Contact Guard/Hand Hold ROM All Extremities PT ROM Status WFL Abnormal ROM Comment no L ankle measure MMT All Extremities PT MMT WFL Abnormal MMT Grade no L ankle measure Rehab PT IP prob,goals,plan Problems Date of Evaluation: 09/01/20 PT IP Problems Transfers,Gait,Balance,Self care,Safety Rehab Potential Rehab Potential Fair Equipment Needs Assistive Devices Rolling / Wheeled Walker Plan PT Intervention Plan Transfers,Gait,Therapeutic Exercise PT Plan Frequency BID Duration LOS Discharge Goals Bed Transfer Ability Independent Sit to Stand Chair Transfer Ability Supervision/Stand by,Contact Guard/Hand Hold Ambulation Assistive Device Rolling Walker Ambulation Distance (feet) 10 Discharge Plan PT Discharge Plan pt to retun to local personal halfway once medically stable G -code Required Yes Eval Comp
[2020-09-01 15:58] LABS: Hematocrit 28.8 % (42.0-52.0); Hemoglobin 9.7 g/dL (14.1-18.0)
[2020-09-01 17:06] LABS: POC Glucose,Bedside 209 (70-110)
--- NOTE | 2020-09-01 17:15 | PC.NURSE ---
Pt has been pleasant and cooperative this shift. A&O X4. No complaints of pain. Pt is on room air with sats. >90%. Lungs CTA. No edema noted. LLE surgical dressing/GAUDENCIO drain in place and C/D/I. Pt is non-weight bearing to the LLE and ambulates with assistance X1. Pt sat up in the recliner for several hours this shift and uses the urinal to void clear, yellow urine without issue. No BM this shift. Pt has been instructed to provide a stool sample and a specimen cup has been placed at bedside for reminder. Pt received 1 unit of PRBC's this shift and tolerated well. 18 G peripheral IV in the LT AC is patent and infusing NS @ 150 ML/HR. VSS. Call light within reach. Will continue to monitor.
--- NOTE | 2020-09-01 21:10 | PC.NURSE ---
TYLENOL 650MG PO GIVEN FOR SOME ACHINESS,PT REPORTS JUST CAN NOT GET COMFORTABLE
--- NOTE | 2020-09-01 21:30 | PC.NURSE ---
ANOTHER BAG NS HUNG AT THIS TIME ,PT HAD A TEMP EARLIER AND IT WAS 99.9,TYLENOL WAS GIVEN AND NOW TEMP IS 98.7.URINAL EMPTIED WITH 650ML OF CLEAR YELLOW URINE,NO OTHER NEEDS OR CONCERNS VOICED
--- NOTE | 2020-09-01 22:00 | PC.NURSE ---
PT WAS ASSISTED WITH HIS IV POLE PER STAFF,UA OBTAINED AT THIS TIME.REPORTS TYLENOL HAS HELPED WITH DISCOMFORT,NO OTHER NEEDS OR CONCERNS VOICED
--- NOTE | 2020-09-01 23:37 | PC.NURSE ---
LAB HERE TO DRAW CHANI
[2020-09-02 00:24] LABS: Vancomycin,Trough 8.6 ug/mL (5.0-10.0)
[2020-09-02 04:00] VITALS: BP 106/73; PULSE 70; RESP 18; TEMP 36.9; O2SAT 97
[2020-09-02 05:21] VITALS: BMI 39.4
--- NOTE | 2020-09-02 06:00 | PC.NURSE ---
PT HAS SLEPT OFF AND ON THROUGHTOUT THE NIGHT,NO DRAINAGE TO DRESSING ON HIS LEFT FOOT.EMPTIED 5ML SEROUSANG.DRAINAGE FROM IT.FOOT HAS BEEN ELEVATED.IV INFUSING WITHOUT DIFF. AT 150ML /HR.PT HAS ATE WHEN HE WAS AWAKE.HAS HAD SEVERAL DIET PEPSIS,3 BAGS OF CHIPS AND 4-5 ICE CREAMS,AND WAS SAYING HIS STOMACH IS ASKING FOR IT.TOLD HIM THIS MORNING THAT [facility] WOULD BE HERE IN A BIT.PT FS WAS 153.
[2020-09-02 06:54] LABS: Basophils % 0.2 % (0.1-2.0); Eosinophils # 0.1 K/mm3 (0.0-0.4); Eosinophils % 0.5 % (0.1-12.0); Hematocrit 29.1 % (42.0-52.0); Lymphocytes # 1.3 K/mm3 (0.7-4.5); Lymphocytes % 12.3 % (10-50); Mean Corpuscular HGB Conc 34.2 g/dL (31.8-35.4); Mean Corpuscular Hemoglobin 32.2 pg (27.0-31.2); Mean Corpuscular Volume 93.9 fl (80-94); Mean Platelet Volume 8.6 fl (7.4-10.4); Monocytes # 0.9 K/mm3 (0.1-1.0); Monocytes % 8.4 % (1.7-9.3); Neutrophils # 8.1 K/mm3 (1.8-7.8); Neutrophils % 78.5 % (37.0-80.0); Platelet Count 121 K/mm3 (142-424); Red Blood Count 3.09 M/mm3 (4.60-6.20); Red Cell Distribution Width 15.1 % (11.5-17.5); White Blood Count 10.3 K/mm3 (4.8-10.8)
[2020-09-02 07:20] LABS: Chloride 104 mmol/L (98-107); Potassium 3.4 mmoL/L (3.5-5.1); Sodium 134 mmol/L (136-145)
[2020-09-02 07:23] LABS: Anion Gap 9.4 mEq/L (5-15); Blood Urea Nitrogen 23 mg/dl (9-20); Carbon Dioxide 24 mmol/L (22.0-30.0); Creatinine Clearance Estimated 121 mL/min (50-200); Estimated Glomerular Filt Rate 98 ml/min (>60); GFR (African American) 119 ML/MIN (>60)
[2020-09-02 07:24] LABS: Calcium 7.4 mg/dl (8.4-10.2); Glucose 196 mg/dl (74-100)
[2020-09-02 08:00] VITALS: BP 146/74; PULSE 66; RESP 16; TEMP 36.6; O2SAT 98
[2020-09-02 08:33] LABS: POC Glucose,Bedside 153 (70-110)
[2020-09-02 08:33] LABS: POC Glucose,Bedside 168 (70-110)
--- NOTE | 2020-09-02 08:40 | HMH.PHACONS ---
- Pharmacy Consult Date: 09/02/20 Time: 08:40 Referring provider: DR. NEAL Reason for Consult:: VANCOMYCIN DOSE CHANGE Allergies and ADEs:: Allergies Allergy/AdvReac Type Severity Reaction Status Date / Time morphine [MORPHINE] Allergy Severe I-ITCHING Verified 08/30/20 23:30 influenza virus vaccine qs Allergy Unknown Verified 08/30/20 23:30 2019- (6 mos and up) allergy [From Fluarix Quad reaction (PF)] Home Medications:: Home Medications Medication Instructions Recorded Confirmed Type ticagrelor 90 mg tablet 90 mg PO BID #180 tab 05/22/18 08/30/20 Rx dilTIAZem HCL [Diltiazem 24Hr ER 120 mg PO DAILY 02/18/19 08/30/20 History (Cd)] Albuterol Sulfate [Albuterol 2 puffs IH Q4HP PRN 02/19/19 08/30/20 History Sulfate Hfa] Insulin Aspart Prot/Insuln Asp 30 unit SQ 0700 02/19/19 08/30/20 History [Novolog Mix 70/30 Flexpen 100 Units/mL 3mL] Fluticasone Furoate [Arnuity 1 puff IH BID 04/27/19 08/31/20 History Ellipta] Acetaminophen [Tylenol 500mg 1,000 mg PO Q6HP PRN 04/29/19 08/30/20 History tablet] Calcium Carbonate [Antacid] 200 mg PO DAILYP PRN 04/29/19 08/30/20 History zinc sulfate 50 mg zinc (220 mg) 50 mg PO DAILY 05/18/19 08/30/20 History tablet atorvastatin 80 mg tablet 80 mg PO HS #90 tab 02/21/20 08/30/20 Rx hydrochlorothiazide 25 mg tablet 25 mg PO DAILY #90 tab 02/21/20 08/30/20 Rx icosapent ethyl 1 gram capsule 1 g PO BID #180 cap 02/21/20 08/30/20 Rx amitriptyline 10 mg tablet 10 mg PO DAILY tab 04/18/20 08/30/20 History citalopram 20 mg tablet 20 mg PO DAILY tab 04/18/20 08/30/20 History ascorbic acid (vitamin C) 500 mg 500 mg PO DAILY #90 cap 04/19/20 08/30/20 Rx capsule aspirin 81 mg tablet,delayed 81 mg PO DAILY #90 tab 04/19/20 08/30/20 Rx release Insulin Aspart Prot/Insuln Asp 40 units SQ 1600 08/30/20 08/31/20 History [Insulin Aspart Prot (Aux26-59)] Isosorbide Mononitrate [Isosorbide 120 mg PO DAILY 08/30/20 08/30/20 History Mononitrate ER] Pantoprazole Sodium 40 mg PO DAILY 08/30/20 08/30/20 History Ranolazine [Ranolazine ER] 1,000 mg PO BID 08/30/20 08/30/20 History lisinopriL [Lisinopril] 5 mg PO DAILY 08/30/20 08/31/20 History carvediloL [Carvedilol 12.5mg Tab] 12.5 mg PO BID 08/31/20 08/31/20 History Height: 1.68 m Weight: 111.385 kg Laboratory Results:: Laboratory Results - last 24 hr 09/01/20 05:44: Blood Type Confirm O Positive 09/01/20 09:55: Blood Type O Positive, Antibody Screen Negative, Crossmatch (AHG) See Detail 09/01/20 15:48: Hgb 9.7 L, Hct 28.8 L 09/01/20 16:31: POC Glucose 209 H 09/01/20 23:40: Vancomycin Trough 8.6 09/02/20 05:25: POC Glucose 153 H 09/02/20 06:33: WBC 10.3, RBC 3.09 L, Hgb 10.0 L, Hct 29.1 L, MCV 93.9, MCH 32.2 H, MCHC 34.2, RDW 15.1, Plt Count 121 L, MPV 8.6, Neut % (Auto) 78.5, Lymph % (Auto) 12.3, [place] % (Auto) 8.4, Eos % (Auto) 0.5, Baso % (Auto) 0.2, Neut # (Auto) 8.1 H, Lymph # (Auto) 1.3, [place] # (Auto) 0.9, Eos # (Auto) 0.1, Baso # (Auto) 0.0 09/02/20 06:33: Sodium 134 L, Potassium 3.4 L, Chloride 104, Carbon Dioxide 24, Anion Gap 9.4, BUN 23 H D, Creatinine 0.80 D, Estimated Creat Clear 121, Estimated GFR 98, Est GFR ( Amer) 119 D, Glucose 196 H, Calcium 7.4 L 09/02/20 08:09: POC Glucose 168 H Medical History: Reports:: Asthma, Coronary Artery Disease, Cerebrovascular Accident, Diabetes Mellitus Type 2, Hyperlipidemia, Hypertension, MRSA, Myocardial Infarction, Peripheral Vascular Disease, Renal Disease, Renal Insufficiency Denies:: Cancer, Diabetes Mellitus Type 1, Internal Pacemaker, Seizures Assessment and Plan (1) Non compliance with medical treatment Status: Acute Category: Medical Code(s): Z91.19 - Patient's noncompliance with other medical treatment and regimen (2) Diabetic foot infection Status: Acute Category: Medical Code(s): E11.628 - Type 2 diabetes mellitus with other skin complications; L08.9 - Local infection of the skin and subcutaneous tissue, unspecifi
--- NOTE | 2020-09-02 08:52 | HMH.ORTHPN ---
Subjective Date: 09/02/20 Time: 08:00 Principal diagnosis: LLE cellulitis, abscess Interval history: Patient is doing well this morning, he has just finished his breakfast and He denies pain to the LLE. He denies N/V, F/C, SOB/CP. GAUDENCIO drain intact. PN: Obj Ex Vital signs: Temp Pulse Resp BP Pulse Ox 97.9 F 66 16 146/74 H 98 09/02/20 08:00 09/02/20 08:00 09/02/20 08:00 09/02/20 08:00 09/02/20 08:00 - Constitutional no acute distress, obese - Routine HEENT Exam Head: Present: normocephalic Eye: Present: PERRL ENT: Present: mucous membranes moist - Routine Neck Exam Present: full ROM, trachea midline - Routine Respiratory Exam Absent: respiratory distress - Routine Cardiovascular Exam Present: RRR - Routine Abdominal Exam Present: soft, obese - Routine Extremities Exam Present: pulses intact, normal capillary refill, amputation (Left hallux and Left 2nd toe amp. ). Absent: calf tenderness - Detailed Lower Extremity Exam Top foot image: 1 - LLE has decreased edema and erythema Less pitting edema. GAUDENCIO drain intact to medial proximal incision, <5 cc sanginous outpt. Sutures intact to multiple incision sites. There is now a left 2nd toe amp, 1st metatarsal head resection (previous hallux amp). No pain to palpation. Palpable pedal pulses noted. No calf or thigh pain noted b/l. - Routine Back/Spine/Pelvis Exam Back/Spine: Present: full ROM - Routine Skin Exam Present: erythema, dry, warm Comments: S/P I& D to left hallux and Left 2nd toe amp. - Routine Neurological Exam Present: oriented X3, normal tone, vision grossly intact, hearing grossly intact, normal speech - Routine Psychiatric Exam Present: normal affect, cooperative Progress Note: A&P (1) Non compliance with medical treatment Status: Acute (2) Diabetic foot infection Status: Acute (3) Diabetic foot ulcer Status: Acute (4) Obesity (BMI 30-39.9) Status: Acute (5) Elevated erythrocyte sedimentation rate Status: Acute (6) Diabetes mellitus Status: Acute (7) Diabetic neuropathy Status: Acute (8) Diabetic ulcer of left great toe Status: Acute (9) History of partial amputation of toe Status: Acute (10) Fall Status: Acute Assessment and Plan for All Diagnoses:: Sx 08/31/20, s/p left foot incision and drainage, first metatarsal head resection (bone biopsy), second toe amputation, application of GAUDENCIO drain POD#2 08/31/20, Intra-op Specimens: Left foot wound culture Left second toe bone culture, bone pathology Left first metatarsal head bone culture, bone pathology margin Labs, 08/30/20: wbc 21.0, esr > 140, crp 258.4, glucose 152, Ha1c 7.3% Labs, 09/01/20: wbc 13.3, esr > 140, crp 144.7, glucose 181, creatinine 1.1, gfr 68 Labs, 09/02/20: wbc 10.3 Left leg and foot looks good today, less swollen and red today. Skin cleansed with Betadine. Vaseline gauze then, Betadine packed into the dorsal incision and applied to all incisions, along with a dry sterile dressing. Patient understands the drain will remain in place until follow-up. It will need to be emptied. Consult case mgmt: post op shoe, DME (walker). Plan: 1. Maintain dressing clean dry and intact to left foot, reinforce as necessary. 2. Daily dressing changes: cleanse foot. Dry. Apply betadine soaked packing to opening in dorsal left foot. Then apply betadine soaked 4x4s, followed by a dry sterile dressing (4x4, kerlix, Jose Luis). 3. Empty GAUDENCIO drain per shift and as needed. 4. PWB to left foot in post op shoe with walker. 5. Continue antibiotics per PCP team. [facility]. History of sx, 02/19/19: Enterococcus faecalis, strep and MRSA and 04/29/2019: MRSA (left hallux bone amp) Recommend coverage for MRSA/previous bacteria. Recommend MRSA (Doxycline 100mg BID or Clindamycin 300mg TID x 2 weeks) and recommend Strep/Enterococcus (Levoflox
[2020-09-02 08:54] VITALS: O2SAT 98
--- NOTE | 2020-09-02 09:19 | HMH.DCSUM ---
General - General Admission date:: 08/30/20 Discharge date: 09/02/20 HPI HPI: 60-year-old male presenting to the emergency department by EMS. EMS was called to [facility] this afternoon for fall. Patient says he was standing on the steps when he lost his balance and fell. He struck the back of his head on a wall. When EMS arrived he was sitting at the base of the stairs against the wall. Preferred eyes closed. No obvious trauma. Patient was placed onto a backboard and transferred to the emergency department. On arrival he is awake and alert. Says he has headache, dull and throbbing, posterior. No neck pain. No chest pain, abdominal pain, pain in his extremities. He is dealing with a foot wound on his left toe. Diabetic ulcer. It has been more red and swollen than normal. Denies fevers, chills, nausea, vomiting. He has had diarrhea. 08/30/[address]: FINDINGS: No midline shift, mass effect, intracranial hemorrhage, hydrocephalus, or extra-axial fluid collection is evident. Patchy hypodensity in periventricular white matter which may be related to ischemic gliotic change the the calvarium has an unremarkable appearance. Mild opacification mastoid sinus. No sinus air-fluid level. IMPRESSION: No acute intracranial finding Dictated by: Saul, 08/30/20 Nando Foot: FINDINGS: S/p amputation at the 1st metatarsophalangeal joint and the 2nd PIP joint. No bony erosive changes are evident. Soft tissue swelling is present along the dorsal aspect of the foot. No fracture or dislocation. No lytic or blastic change. Prominent bony hypertrophy is present along the distal and anterior aspect of the talus Other findings:None. IMPRESSION: Prior amputation at the 1st MTP joint and 2nd PIP joint without bony erosive change. Soft tissue swelling along the dorsal aspect of the midfoot Dictated by: Saul, 60-year-old male lying in bed denies any shortness of breath or chest pain during the night. This morning he is resting quietly said his foot pain is at a tolerable level. Wound culture obtained, will consult podiatry and continue antibiotics Hospital Course Hospital Course: Laboratory Tests 08/30/20 08/30/20 08/30/20 16:57 16:57 16:57 WBC 21.0 H* RBC 3.52 L Hgb 11.6 L Hct 33.8 L MCV 96.0 H MCH 33.0 H MCHC 34.4 RDW 14.1 Plt Count 142 MPV 9.1 Neut % (Auto) 90.5 H Lymph % (Auto) 4.3 L [place] % (Auto) 4.8 Eos % (Auto) 0.3 Baso % (Auto) 0.1 Neut # (Auto) 19.0 H Lymph # (Auto) 0.9 [place] # (Auto) 1.0 Eos # (Auto) 0.1 Baso # (Auto) 0.0 Total Counted 100 Neutrophils % (Manual) 88 H Lymphocytes % (Manual) 7 L Monocytes % (Manual) 5 Platelet Estimate Normal RBC Morphology Normal ESR > 140 H Sodium 126 L Potassium 4.0 Chloride 93 L Carbon Dioxide 24 Anion Gap 13.0 BUN 24 H Creatinine 1.20 Estimated Creat Clear 100 Estimated GFR 61 Est GFR ( Amer) 74 Glucose 152 H POC Glucose Hemoglobin A1c Lactate Calcium 8.9 Total Bilirubin 2.7 H AST 53 ALT 31 Alkaline Phosphatase 62 C-Reactive Protein 258.4 H Total Protein 7.5 Albumin 3.9 Globulin 3.6 H Albumin/Globulin Ratio 1.1 Vancomycin Trough Chlamy pneumoniae PCR Adenovirus (PCR) B. pertussis DNA (PCR) Coronavirus OC43 (PCR) Coronavirus HKU1 (PCR) Coronavirus 229E (PCR) SARS-CoV-2 (PCR) Coronavirus NL63 (PCR) Human Metapneumovir PCR Influenza A (H1) PCR Influ A (H1N1/09) PCR Influenza A (H3) PCR Influenza Type A (PCR) Influenza Type B (PCR) M. pneumoniae (PCR) Parainfluenza 1 (PCR) Parainfluenza 2 (PCR) Parainfluenza 3 (PCR) Parainfluenza 4 (PCR) RSV (PCR) Entero/Rhino (PCR) Blood Type Blood Type Confirm Antibody Screen Crossmatch (AHG) 08/30/20 08/30/20 08/30/20 17:38 18:26 22:00 WBC R
--- NOTE | 2020-09-02 12:23 | PC.NURSE ---
PT STATES HE RECEIVED HIS 0700 DOSE OF HUMALOG THIS A.M.
--- NOTE | 2020-09-02 12:24 | PC.NURSE ---
PT CARE TAKEN OVER BY SERGIO CORREA RN. SERGIO UNDERSTANDS ALL COMPONENTS OF REPORT.
== END 2020-09-02 13:20 | DRG 617 ==
LOC: ER 18:04 → 2ND 19:27
PROVIDERS: Nurse Practitioner Family; Podiatrist; Admitting Provider Family Medicine; Emergency Provider Emergency Medicine; PCP Emergency Medicine; Visit Provider Emergency Medicine
PROC: 0QBP0ZX Excision of Left Metatarsal, Open Approach, Diagnostic (ICD-10-PCS; principal; 2020-08-31 13:30)
DX: E11.621 Type 2 diabetes mellitus with foot ulcer (principal); L03.116 Cellulitis of left lower limb; L02.612 Cutaneous abscess of left foot; M86.9 Osteomyelitis, unspecified; E87.1 Hypo-osmolality and hyponatremia; E11.69 Type 2 diabetes mellitus with other specified complication; E11.29 Type 2 diabetes mellitus with other diabetic kidney complication; S09.90XA Unspecified injury of head, initial encounter; I25.10 Atherosclerotic heart disease of native coronary artery without angina pectoris; I10 Essential (primary) hypertension; W10.9XXA Fall (on) (from) unspecified stairs and steps, initial encounter; Z88.5 Allergy status to narcotic agent; Z88.7 Allergy status to serum and vaccine; Z91.19 Patient's noncompliance with other medical treatment and regimen; E11.628 Type 2 diabetes mellitus with other skin complications; E66.9 Obesity, unspecified; E11.40 Type 2 diabetes mellitus with diabetic neuropathy, unspecified; Z89.421 Acquired absence of other right toe(s); J45.909 Unspecified asthma, uncomplicated; Z86.73 Personal history of transient ischemic attack (TIA), and cerebral infarction without residual deficits; E78.5 Hyperlipidemia, unspecified; Z86.14 Personal history of Methicillin resistant Staphylococcus aureus infection; L97.522 Non-pressure chronic ulcer of other part of left foot with fat layer exposed; I25.2 Old myocardial infarction; E11.51 Type 2 diabetes mellitus with diabetic peripheral angiopathy without gangrene; N28.9 Disorder of kidney and ureter, unspecified; M19.90 Unspecified osteoarthritis, unspecified site; Z89.412 Acquired absence of left great toe; Z95.5 Presence of coronary angioplasty implant and graft; Z79.4 Long term (current) use of insulin; Z89.422 Acquired absence of other left toe(s)
CPT/HCPCS: 28124; 20240; 28306; 28810; 36415; 70450; 73630; 73700; 80048; 80053; 80202; 82962; 83036; 83605; 85007; 85014; 85018; 85025; 85651; 86140; 86850; 87040; 87070; 87075; 87077; 87186; 87205; 87581; 87633; 87798; 88307; 88311; 93971; 96365; 96367; 97110; 97161; 99203; G0463; J2405; J3370; P9016; U0003

== ENCOUNTER → 2020-09-11 08:42 | Outpatient (CLI) | payer MEDICARE, BC, SELFPAY ==
[2020-09-11 09:19] LABS: Chloride 95 mmol/L (98-107); Potassium 4.4 mmoL/L (3.5-5.1); Sodium 127 mmol/L (136-145)
[2020-09-11 09:22] LABS: Anion Gap 12.4 mEq/L (5-15); Blood Urea Nitrogen 17 mg/dl (9-20); Calcium 8.3 mg/dl (8.4-10.2); Carbon Dioxide 24 mmol/L (22.0-30.0); Estimated Glomerular Filt Rate 86 ml/min (>60); GFR (African American) 103 ML/MIN (>60); Glucose 169 mg/dl (74-100)
== END ==
PROVIDERS: Visit Provider Emergency Medicine
DX: Z89.422 Acquired absence of other left toe(s) (principal)
CPT/HCPCS: 80048

== ENCOUNTER → 2020-09-13 16:02 | Outpatient (CLI) | payer MEDICARE, BC, SELFPAY ==
[2020-09-13 16:37] LABS: Hemoglobin A1C 7.3 % (4.0-6.0)
[2020-09-13 17:08] LABS: Basophils % 0.3 % (0.1-2.0); Eosinophils # 0.5 K/mm3 (0.0-0.4); Hematocrit 32.1 % (42.0-52.0); Hemoglobin 10.8 g/dL (14.1-18.0); Lymphocytes # 2.5 K/mm3 (0.7-4.5); Lymphocytes % 18.3 % (10-50); Mean Corpuscular HGB Conc 33.7 g/dL (31.8-35.4); Mean Corpuscular Hemoglobin 31.9 pg (27.0-31.2); Mean Corpuscular Volume 94.7 fl (80-94); Monocytes % 6.9 % (1.7-9.3); Neutrophils # 9.6 K/mm3 (1.8-7.8); Neutrophils % 70.5 % (37.0-80.0); Platelet Count 281 K/mm3 (142-424); Red Blood Count 3.39 M/mm3 (4.60-6.20); Red Cell Distribution Width 14.8 % (11.5-17.5); White Blood Count 13.6 K/mm3 (4.8-10.8)
[2020-09-13 17:15] LABS: Chloride 96 mmol/L (98-107); Potassium 4.8 mmoL/L (3.5-5.1); Sodium 132 mmol/L (136-145)
[2020-09-13 17:16] LABS: Alanine Aminotransferase 18 U/L (12-78); Albumin Level 3.9 g/dl (3.5-5.0); Alkaline Phosphatase 121 U/L (38-126); Anion Gap 11.5 mEq/L (5-15); Aspartate Amino Transferase 29 U/L (17-59); Bilirubin,Total 0.6 mg/dl (0.2-1.3); Blood Urea Nitrogen 14 mg/dl (9-20); Calcium 8.9 mg/dl (8.4-10.2); Carbon Dioxide 27 mmol/L (22.0-30.0); Estimated Glomerular Filt Rate 76 ml/min (>60); GFR (African American) 92 ML/MIN (>60); Glucose 166 mg/dl (74-100); Total Protein,Serum 7.9 g/dl (6.3-8.2)
[2020-09-13 17:23] LABS: C-Reactive Protein 3.5 mg/L (0-4)
[2020-09-13 18:07] LABS: Erythrocyte Sedimentation Rate 109 mm/hr (0-20)
== END ==
PROVIDERS: Visit Provider Nurse Practitioner
DX: Z98.890 Other specified postprocedural states (principal); E11.628 Type 2 diabetes mellitus with other skin complications; L08.9 Local infection of the skin and subcutaneous tissue, unspecified; R07.9 Chest pain, unspecified
CPT/HCPCS: 36415; 80053; 83036; 85025; 85651; 86140; 87070; 87205

== ENCOUNTER 2020-09-14 10:32 | Outpatient (CLI) | payer MEDICARE, BC, SELFPAY ==
[2020-09-14 13:11] VITALS: BMI 37.1
--- NOTE | 2020-09-14 13:12 | XR_ITS ---
PROCEDURE: XR CHEST PORTABLE CLINICAL HISTORY: Picc Line Placement COMPARISON: CR XR CHEST PORTABLE PICC PLAC from 02/20/2019 CR XR CHEST PORTABLE PICC PLAC from 05/01/[address] ANGIO CHEST from 06/26/2019 CR XR CHEST PORTABLE from 06/26/2019 FINDINGS: Left upper extremity PICC line has been inserted. The tip is somewhat difficult to visualize but does appear to be in the region of the SVC. Unremarkable cardiovascular structures with clear lungs. No acute bony abnormalities. IMPRESSION: Left upper extremity PICC line tip in the region of the SVC. Dictated by: Adam Hughes MD 09/14/2020 13:30 Adam Hughes MD in [place] 09/14/2020 13:30
[2020-09-14 14:02] VITALS: BP 154/69; PULSE 76; RESP 18; TEMP 36.4; O2SAT 98
[2020-09-14 14:42] VITALS: BP 126/65; PULSE 69; RESP 18; TEMP 36.6; O2SAT 100
--- NOTE | 2020-09-14 14:58 | PC.NURSE ---
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
== END 2020-09-14 14:42 | disposition home or self-care (01) ==
LOC: INF 10:32
PROVIDERS: PCP Emergency Medicine; Visit Provider Podiatrist
DX: M86.172 Other acute osteomyelitis, left ankle and foot (principal)
CPT/HCPCS: 36569; 71045; 96365; C1751; J0692

== ENCOUNTER → 2020-09-17 08:15 | Outpatient (CLI) | payer MEDICARE, BC, SELFPAY ==
[2020-09-17 09:12] LABS: Chloride 96 mmol/L (98-107); Potassium 4.7 mmoL/L (3.5-5.1); Sodium 131 mmol/L (136-145)
[2020-09-17 09:15] LABS: Anion Gap 12.7 mEq/L (5-15); Blood Urea Nitrogen 18 mg/dl (9-20); Calcium 9.1 mg/dl (8.4-10.2); Carbon Dioxide 27 mmol/L (22.0-30.0); Estimated Glomerular Filt Rate 86 ml/min (>60); GFR (African American) 103 ML/MIN (>60); Glucose 132 mg/dl (74-100)
== END ==
PROVIDERS: Visit Provider Emergency Medicine
DX: M86.672 Other chronic osteomyelitis, left ankle and foot (principal); E11.42 Type 2 diabetes mellitus with diabetic polyneuropathy; L03.116 Cellulitis of left lower limb; Z79.4 Long term (current) use of insulin
CPT/HCPCS: 80048

== ENCOUNTER → 2020-11-01 11:48 | Outpatient (CLI) | payer MEDICARE, MEDICAID, SELFPAY ==
[2020-11-01 13:31] LABS: Basophils # 0.1 K/mm3 (0-0.2); Basophils % 0.6 % (0.1-2.0); Eosinophils # 0.4 K/mm3 (0.0-0.4); Eosinophils % 4.1 % (0.1-12.0); Hematocrit 37.7 % (42.0-52.0); Hemoglobin 12.9 g/dL (14.1-18.0); Lymphocytes # 2.2 K/mm3 (0.7-4.5); Lymphocytes % 24.4 % (10-50); Mean Corpuscular HGB Conc 34.3 g/dL (31.8-35.4); Mean Corpuscular Hemoglobin 32.8 pg (27.0-31.2); Mean Corpuscular Volume 95.6 fl (80-94); Mean Platelet Volume 9.6 fl (7.4-10.4); Monocytes # 0.7 K/mm3 (0.1-1.0); Monocytes % 8.1 % (1.7-9.3); Neutrophils # 5.6 K/mm3 (1.8-7.8); Neutrophils % 62.8 % (37.0-80.0); Platelet Count 160 K/mm3 (142-424); Red Blood Count 3.95 M/mm3 (4.60-6.20); White Blood Count 8.9 K/mm3 (4.8-10.8)
[2020-11-01 13:33] LABS: Chloride 95 mmol/L (98-107); Potassium 4.7 mmoL/L (3.5-5.1); Sodium 132 mmol/L (136-145)
[2020-11-01 13:35] LABS: Blood Urea Nitrogen 17 mg/dl (9-20)
[2020-11-01 13:36] LABS: Alanine Aminotransferase 29 U/L (12-78); Albumin Level 4.5 g/dl (3.5-5.0); Albumin/Globulin Ratio 1.3 (1.1-1.8); Alkaline Phosphatase 91 U/L (38-126); Anion Gap 15.7 mEq/L (5-15); Aspartate Amino Transferase 35 U/L (17-59); Carbon Dioxide 26 mmol/L (22.0-30.0); Estimated Glomerular Filt Rate 86 ml/min (>60); GFR (African American) 103 ML/MIN (>60); Globulin 3.5 g/dL (1.3-3.2); Glucose 120 mg/dl (74-100)
[2020-11-01 13:42] LABS: C-Reactive Protein 0.7 mg/L (0-4)
[2020-11-01 14:05] LABS: Erythrocyte Sedimentation Rate 38 mm/hr (0-20)
[2020-11-01 14:42] LABS: Hemoglobin A1C 6.1 % (4.0-6.0)
== END ==
PROVIDERS: Visit Provider Emergency Medicine
DX: I11.9 Hypertensive heart disease without heart failure (principal); E78.5 Hyperlipidemia, unspecified; E11.9 Type 2 diabetes mellitus without complications; Z79.4 Long term (current) use of insulin
CPT/HCPCS: 80053; 83036; 85025; 85651; 86140

== ENCOUNTER 2020-11-02 10:19 | Day surgery (SDC) | payer MEDICARE, MEDICAID, SELFPAY ==
[2020-10-31 15:08] VITALS: BMI 37.5
[2020-11-02 10:45] VITALS: BP 180/90; PULSE 65; RESP 18; TEMP 36.7; O2SAT 99
[2020-11-02 11:06] LABS: POC Glucose,Bedside 110 (70-110)
--- NOTE | 2020-11-02 12:27 | HMH.OPNOTE ---
Date of procedure: 11/02/20 Pre-op Diagnosis:: 1. Left foot wound dehiscence s/p amputation 2. Left diabetic foot ulcer Post-op Diagnosis:: Same Procedure performed:: 1. Left foot wound debridement 2. Left partial delayed primary closure 3. Application of wound graft Surgeon:: Darleen Flower DPM Anesthesia: local Estimated blood loss (mL): 10 Clinical Note:: Patient is a 60 DM male who has a history of sx, 02/19/19: Enterococcus faecalis, strep and MRSA and 04/29/2019: MRSA (left hallux bone amp). He has surgery on 08/31/20, s/p left foot incision and drainage, first metatarsal head resection (bone biopsy), second toe amputation, application of GAUDENCIO drain. Conservative treatment options include local wound care, oral and IV antibiotics, and off-loading. We discussed surgical intervention for wound debridement, closure and application of graft. Patient also understands that they could have wound healing complications including delayed healing and infection. We discussed that if the wound does not heal, it is possible that they may need a more proximal amputation and could result in further loss of digits, loss of partial foot or loss of leg. We discussed the risks and benefits in great detail. Other surgical risks include: prolonged pain and swelling, further infection requiring oral or IV antibiotics, delay in healing of soft tissue or bone, nerve or blood vessel damage, CRPS/RSD, DVT, anesthesia complications, and even . All questions answered. Patient verbalized understanding. Consent obtained. Operative findings:: The left dorsal foot has a diabetic ulcer noted. Utilizing a 15' blade, forceps and curette, the wounds were sharply excisionally debrided through skin into/involving sub q layer. The wound did extend down into/involving deep fascia. The extensor hallucis longus tendon was exposed. No acute signs of infection noted at this time. Biofilm and fibrotic slough were debrided. No evidence of purulence or malodor. No ascending cellulitis. No drainage. The distal aspect of the wound over the extensor tendon was sutured, delayed primary closure. Post-debridement full thickness, the wound was 100% granular. The wound overlying the first metatarsal dorsally post debridement measured 3.9 x 2.6 x 0.3 cm. Operative note:: On this date and time the patient was deemed an appropriate surgical candidate and with the informed consent signed the patient was wheeled from the preoperative holding area to the local procedure room. 10cc 0.5% marcaine plain local anesthesia was used for this case. Left foot wound debridement: The left extremity was prepped and draped in normal sterile fashion. Attention was directed to the dorsal left foot overlying the first metatarsal where previous amputation surgery was performed. Wound dehiscence over the 1st metatarsal, extending distal to the base of the proximal phalanx. Pre-debridement the wound was thru skin, subq and into deep fascia with exposed extensor tendon. The wound base was 50% fibrotic slough and 50% granular. Utilizing a 15 blade, forceps and curette the wound was debrided sharply excisionally through skin, subcu layer and into/involving deep fascia-extensor hallucis longus tendon. Fibrotic tissue and biofilm was removed. No signs of deep infection. Good bleeding was noted. Post-debridement full thickness, the wound was 100% granular. The wound overlying the first metatarsal dorsally post debridement measured 3.9 x 2.6 x 0.3 cm. No purulence or signs of infection. Betadine irrigation was then used to flush the wound site. It was re-explored and no signs of deep infection noted. Partial Delayed Primary Closure (DPC): Is to be noted that the distal most aspect of the incision over the MPJ, base of the proximal phalanx hallux was reapproximated with suture. The extensor tendon was covered with subcutaneous tissue utilizing 2-0 Vicryl. Next 2-0 Prolene was used to reapproximate the skin over the distal most aspect of the wound. Pos
[2020-11-02 12:54] VITALS: BP 168/93; PULSE 62; RESP 18; TEMP 36.6; O2SAT 99
--- NOTE | 2020-11-02 13:15 | XR_ITS ---
PROCEDURE: XR FOOT LT MIN 3V CLINICAL INDICATION: Left foot ulcer COMPARISON: CR XR FOOT LT MIN 3V from 04/27/2019 CR XR FOOT LT MIN 3V from 04/29/2019 CR XR FOOT LT MIN 3V from 08/30/2020 CR XR FOOT LT MIN 3V from 08/31/2020 FINDINGS: There has been amputation at the mid to distal shaft of the 1st metatarsal and at the 2nd metatarsophalangeal joint. The wound VAC has been removed. No obvious bony destructive changes. Bony spurring is present at the carpal metacarpal junction dorsally and at the talonavicular region. Other findings:None. IMPRESSION: Postsurgical changes as described above Dictated by: Adma Hughes MD 11/02/2020 13:33 Adam Hughes MD in [place] 11/02/2020 13:33
[2020-11-02 13:18] VITALS: BP 168/93; PULSE 62; RESP 18; O2SAT 99
--- NOTE | 2020-11-02 13:26 | SUR.PHASEII ---
1315 RADIOLOGY AT BEDSIDE FOR L FOOT XRAY. PT TOLERATED WELL.
== END 2020-11-02 13:22 | disposition home or self-care (01) ==
PROVIDERS: PCP Emergency Medicine; Visit Provider Podiatrist
PROC: (CPT 11042; principal; 2020-11-02 12:45)
DX: T81.31XA Disruption of external operation (surgical) wound, not elsewhere classified, initial encounter (principal); M86.672 Other chronic osteomyelitis, left ankle and foot; E11.42 Type 2 diabetes mellitus with diabetic polyneuropathy; L03.116 Cellulitis of left lower limb; Z79.4 Long term (current) use of insulin; I11.0 Hypertensive heart disease with heart failure; E78.5 Hyperlipidemia, unspecified
CPT/HCPCS: 11042; 15275; 73630; 82962; 96372; Q4101

== ENCOUNTER 2020-11-14 09:00 | Outpatient (RCR) | payer MEDICARE, BC, MEDICAID, SELFPAY ==
--- NOTE | 2020-09-08 08:54 | HMH.PTOPWND ---
Rehab Outpt Wound Evaluation Rehab OP Wound Evaluation Start: 09/08/20 07:58 Freq: Status: Active Protocol: Document 09/08/20 08:40 SATNAM (Rec: 09/08/20 08:54 PHORNE [id number]) Electronically Signed By Kne Vanessa, PT 09/08/20 08:40 Subjective/History History History Pt is 60 yowm who presents ~ 1 wk S/P L foot I&D, !st MT head resection, 2nd toe amputation, with sutures intact. He reports minimal pain and discomfort and some numbness due to neuropathy. Pitting edema noted throughout the L foot with less in the lower leg. Continued large amounts of serosanguineous drainage noted from L foot. PMH: CAD, CVA, DM-II, HL, HTN, MRSA, PA, PAD, renal insufficiency. Subjective Subjective #+ pitting edema noted to the L foot with 2+ LE in the L lower leg. 1/4 tenderness to palpation noted in per- incisional tissues. Incisions intact with sutures noted, some scabbing noted around the distal 2nd toe incision this date. Wound Eval Wound Left Anterior Toe - 2nd Digit Wound Type Incision Is This a Chronic Wound No Wound Length (cm) 3.5 Wound Width (cm) 1.0 Wound Bed Appearance [place],Eschar,Edematous Wound Margins Description Macerated Surrounding Tissue Appearance [place] Edema Type Pitting Edema Degree 3+ Query Text:1+ Trace, Barely Detectable, Rebound 15-30 seconds 2+ Moderate, Slight Indentation, Rebound 10-20 seconds 3+ Deep, Deeper Indentation, Rebound > 30 seconds 4+ Very Deep, Rebound > 60 seconds Edema Appearance Weeping Drainage Description Serosanguineous Drainage Amount Large Dressing Status Changed Wound Topical Solution/Irrigant Saline Irrigant Primary Dressing Medicated Gauze Pad Comment betadine, xeroform Wound Secondary Dressing Type Gauze Pad,Gauze Roll/Wrap, Elastic Bandage Wound Debridement Method Gauze Wound Debridement Amount of Tissue Minimal Removed
--- NOTE | 2020-10-04 09:58 | HMH.RHREAS ---
Rehab Reassessment Rehab OP Re-assessment Start: 10/04/20 09:44 Freq: Status: Active Protocol: Document 10/04/20 09:55 SATNAM (Rec: 10/04/20 09:57 SATNAM [id number]) Electronically Signed By Ken Vanessa, PT 10/04/20 09:55 Rehab Re-assessment Subjective Subjective Pt continues to reports no pain, he feels he is healing well and having less drainage. Objective Objective Notes L great toe incision: L= 10.1 cm, W= 2.2 cm L anterior foot: L= 1.3 cm, W= 3.2 cm 1+ pitting edema remains, but only small amts of drainage noted and all drainage is serosanguineous. Decreased necrotic tissue with increased granulation on the distal end of L great toe incision. L ant 2nd toe and L lateral foot wounds appear healed this date. Sharp, selective, excisional debridement performed to remove necrotic tissue. Assessment Progress Assessment Progressing as Expected Assessment Notes Improving necrotic tissue, decreasing drainage. Some black eschar/yellow slough remains. Patient goals met ST,2,3 Goals Not Met LT,2,3,4 Revised Goals none Plan Plan Continue per initial POC Frequency of Therapy 2 x/wk Duration of therapy 8 wks Time and Billing Re-Eval Time 15 Re-Eval Billing Units 0 PHYSICIAN CERTIFICATION: I certify the specified therapy services for Mayo Jain are required, authorized, and reviewed every 30 days.
== END 2020-11-14 09:05 | disposition home or self-care (01) ==
LOC: PT 09:00
PROVIDERS: PCP Emergency Medicine; Visit Provider Podiatrist
DX: L03.032 Cellulitis of left toe (principal); Z98.890 Other specified postprocedural states
CPT/HCPCS: 97140; 97163; 97164; 97597

== ENCOUNTER 2021-12-17 20:26 | Observation (INO) | payer MEDICARE, MEDICAID, SELFPAY ==
[2021-12-17] VITALS (7 sets, daily range): BP systolic 123–154; BP diastolic 60–82; PULSE 57–84; RESP 16–20; TEMP 36.6–37.1; O2SAT 96–100; BMI 35.2; BMI 33.9; BMI 32.8
[2021-12-17 20:17] LABS: POC Glucose,Bedside 183 (70-110)
--- NOTE | 2021-12-17 20:53 | ECG_ITS ---
APPROVED REPORT Exam: Resting ECG HR:61 bpm ECG Measurements Heart Rate 61 AXES IL 176 P 16 QRSd 80 QRS 50 QT 416 T 55 QTc 418 Conclusion SINUS RHYTHM NORMAL ECG UNCONFIRMED REPORT Electronically signed by : Yonis Aceves MD 12/19/2021 21:11:23
--- NOTE | 2021-12-17 20:53 | XR_ITS ---
PROCEDURE INFORMATION: Exam: XR Chest Exam date and time: 12/17/2021 9:13 PM Age: 61 years old Clinical indication: Sternal or substernal pain; Additional info: Cp TECHNIQUE: Imaging protocol: Radiologic exam of the chest. Views: 2 views. COMPARISON: CR XR CHEST PORTABLE 09/14/2020 1:15 PM FINDINGS: Lungs: No acute airspace consolidation. No appreciable pulmonary edema. Pleural spaces: No pleural effusion. No pneumothorax. Heart/Mediastinum: Cardiomediastinal silhouette is unchanged, noting prominent pericardial fat pad. Bones/joints: No acute osseous abnormality. IMPRESSION: No acute findings.
[2021-12-17 21:08] LABS: Blood Urea Nitrogen 11 mg/dl (9-20); Calcium 8.7 mg/dl (8.4-10.2); Carbon Dioxide 25 mmol/L (22.0-30.0); Chloride 96 mmol/L (98-107); Creatinine Clearance Estimated 121 mL/min (50-200); Estimated Glomerular Filt Rate 85 ml/min (>60); GFR (African American) 103 ML/MIN (>60); Glucose 182 mg/dl (74-100); Magnesium 1.4 mg/dl (1.6-2.3); Sodium 130 mmol/L (136-145)
[2021-12-17 21:13] LABS: C-Reactive Protein 1.3 mg/L (0-4)
[2021-12-17 21:26] LABS: Troponin I < 0.01 ng/ml (0.00-0.034)
[2021-12-17 21:27] LABS: Procalcitonin < 0.030 ng/mL (0.0-2.0)
[2021-12-17 21:28] LABS: Basophils % 0.4 % (0.1-2.0); Eosinophils # 0.3 K/mm3 (0.0-0.4); Eosinophils % 3.5 % (0.1-12.0); Hematocrit 34.6 % (42.0-52.0); Lymphocytes # 2.2 K/mm3 (0.7-4.5); Lymphocytes % 23.9 % (10-50); Mean Corpuscular HGB Conc 34.7 g/dL (31.8-35.4); Mean Corpuscular Hemoglobin 33.7 pg (27.0-31.2); Mean Platelet Volume 8.4 fl (7.4-10.4); Monocytes # 0.7 K/mm3 (0.1-1.0); Monocytes % 7.2 % (1.7-9.3); Neutrophils # 5.9 K/mm3 (1.8-7.8); Platelet Count 199 K/mm3 (142-424); Red Blood Count 3.56 M/mm3 (4.60-6.20); Red Cell Distribution Width 13.7 % (11.5-17.5); White Blood Count 9.1 K/mm3 (4.8-10.8)
--- NOTE | 2021-12-17 21:51 | HMH.EDCP ---
ED Disposition Clinical Impression: Unstable angina pectoris, Type 2 diabetes mellitus with diabetic polyneuropathy, with long-term current use of insulin, Obesity (BMI 30-39.9) CAD (coronary artery disease) Qualifiers: Coronary Disease-Associated Artery/Lesion type: [place] artery [place] vs. transplanted heart: [place] heart Associated angina: with unstable angina Qualified Code(s): I25.110 - Atherosclerotic heart disease of [place] coronary artery with unstable angina pectoris Disposition: Admitted as Observation Condition on Discharge: Fair Referrals: Junior Alas MD [Primary Care Provider] - - Critical Care Critical Care Time: No Attestation: On 12/17/21, the high probability of a clinically significant, sudden or life threatening deterioration of the following system(s) required my full and direct attention, intervention and personal management. The time I documented below is in addition to time spent performing reported procedures but includes the following listed in this critical care notation. Medical Decision Making - Medical Records Medical records reviewed: Yes: I reviewed the patient's medical records. - [place] Inquiry Pt receiving controlled substance: No Vital Signs: 12/17/21 20:00 Temperature 98.8 F Temperature Source Oral Pulse Rate [Right] 84 Respiratory Rate 19 Blood Pressure [Right Arm] 154/82 H Blood Pressure Mean [Right Arm] 106 02 Sat by Pulse Oximetry 97 Oxygen Delivery Method Room Air - Lab Data Lab results reviewed: Yes: I reviewed the patient's lab results. Lab Results 12/17/21 20:08: POC Glucose 183 H 12/17/21 20:10: Sodium 130 L, Potassium 4.0, Chloride 96 L, Carbon Dioxide 25, Anion Gap 13.0, BUN 11, Creatinine 0.90, Estimated Creat Clear 121, Estimated GFR 85, Est GFR ( Amer) 103, Glucose 182 H, Calcium 8.7, Troponin I < 0.01, C-Reactive Protein 1.3 12/17/21 20:10: WBC 9.1, RBC 3.56 L, Hgb 12.0 L, Hct 34.6 L, MCV 97.0 H, MCH 33.7 H, MCHC 34.7, RDW 13.7, Plt Count 199, MPV 8.4, Neut % (Auto) 65.0, Lymph % (Auto) 23.9, [place] % (Auto) 7.2, Eos % (Auto) 3.5, Baso % (Auto) 0.4, Neut # (Auto) 5.9, Lymph # (Auto) 2.2, [place] # (Auto) 0.7, Eos # (Auto) 0.3, Baso # (Auto) 0.0, ESR 39 H 12/17/21 20:10: Magnesium 1.4 L, Procalcitonin < 0.030 Result diagrams: 12/17/21 20:10 12/17/21 20:10 Orders (Tests/Meds): ED MEDICATIONS Generic Name Dose Route Start Last Admin Trade Name Freq PRN Reason Stop Dose Admin Sodium Chloride 1,000 mls @ 999 mls/hr 12/17/21 21:00 12/17/21 21:44 Sod Chlor 0.9% 1000ml Bag IV 12/17/21 22:00 999 mls/hr .Q1H1M MED Administration Nitroglycerin 1 gm 12/17/21 22:03 Nitroglycerin 1 Gm Ointment TD 12/17/21 22:04 ONCE ONE Discontinued Medications Generic Name Dose Route Start Last Admin Trade Name Freq PRN Reason Stop Dose Admin Aspirin 324 mg 12/17/21 20:54 12/17/21 21:44 Aspirin 81mg Chewable Tablet PO 12/17/21 20:55 324 mg ONCE ONE Administration ORDERS Category Date Time Status BNP [Brain Natriuretic Peptide] Stat Lab 12/17/21 20:10 Received Hemoglobin A1C Stat Lab 12/17/21 20:10 Received Troponin I Q3H Lab 12/17/21 23:55 Ordered Troponin I Q3H Lab 12/18/21 02:55 Ordered - Radiology Data #1 Image(s): Chest Image Reviewed: Yes I have reviewed radiologist's interpretation Preliminary Findings: Normal/NAD - ECG Data Tracing #1 I reviewed this ECG and interpreted as documented below: Normal Sinus Rhythm: Yes Ischemic changes: non-specific ST-T wave changes Medical Decision Narrative: pt is poor historian but has known ht dis and diabetes and increased sx Chest Pain HPI - General Chief Complaint: Chest Pain Stated Complaint: CP Time Seen by Provider: 12/17/21 21:00 Mode of Arrival: EMS Source of Information: Patient, EMS, Medical Record Limitations: Altered Mental Status Description of Symptoms (Recalled from ER Triage Doc. by RN): Pt c/o heart pain . States i
[2021-12-17 21:53] LABS: Erythrocyte Sedimentation Rate 39 mm/hr (0-20)
[2021-12-17 22:06] LABS: Hemoglobin A1C 6.8 % (4.0-6.0)
[2021-12-17 22:13] LABS: NT Pro Brain Natriuretic Pep. 87.9 pg/mL (0-125)
--- NOTE | 2021-12-17 22:16 | PC.NURSE ---
patient admitted to [address] Alas with unstable angina
[2021-12-17 22:29] LABS: Coronavirus 19, PCR Not Detected (NotDetected); Influenza A, PCR Not Detected (NotDetected); Influenza B, PCR Not Detected (NotDetected)
--- NOTE | 2021-12-17 22:58 | PC.NURSE ---
patient up to floor via wheelchair @ this time.
[2021-12-18] VITALS (7 sets, daily range): BP systolic 113–150; BP diastolic 56–71; PULSE 56–68; RESP 16–60; TEMP 36.6–37.1; O2SAT 96–98; BMI 32.8
[2021-12-18 01:06] LABS: Troponin I < 0.01 ng/ml (0.00-0.034)
[2021-12-18 03:44] LABS: Troponin I < 0.01 ng/ml (0.00-0.034)
--- NOTE | 2021-12-18 06:16 | PC.NURSE ---
No acute changes. Pt has rested well this shift. Has not c/o chest pain since first arriving to floor. VSS. Pt has ambulated to BR with cane and assist x1. Voided x1. BM x1 small. FSBS 119 this AM. Call light within reach.
[2021-12-18 06:36] LABS: POC Glucose,Bedside 119 (70-110)
[2021-12-18 06:51] LABS: Basophils % 0.4 % (0.1-2.0); Eosinophils # 0.3 K/mm3 (0.0-0.4); Eosinophils % 4.1 % (0.1-12.0); Hematocrit 32.3 % (42.0-52.0); Hemoglobin 11.4 g/dL (14.1-18.0); Lymphocytes # 1.9 K/mm3 (0.7-4.5); Lymphocytes % 26.3 % (10-50); Mean Corpuscular HGB Conc 35.3 g/dL (31.8-35.4); Mean Corpuscular Hemoglobin 32.9 pg (27.0-31.2); Mean Corpuscular Volume 93.2 fl (80-94); Monocytes # 0.6 K/mm3 (0.1-1.0); Monocytes % 7.7 % (1.7-9.3); Neutrophils # 4.5 K/mm3 (1.8-7.8); Neutrophils % 61.5 % (37.0-80.0); Platelet Count 178 K/mm3 (142-424); Red Blood Count 3.47 M/mm3 (4.60-6.20); Red Cell Distribution Width 13.9 % (11.5-17.5); White Blood Count 7.4 K/mm3 (4.8-10.8)
[2021-12-18 06:57] LABS: Anion Gap 11.9 mEq/L (5-15); Blood Urea Nitrogen 11 mg/dl (9-20); Calcium 8.2 mg/dl (8.4-10.2); Carbon Dioxide 23 mmol/L (22.0-30.0); Chloride 100 mmol/L (98-107); Chol/HDL Ratio 2.4 (1-3.5); Cholesterol 86 mg/dl (140-200); Creatinine Clearance Estimated 118 mL/min (50-200); Estimated Glomerular Filt Rate 114 ml/min (>60); GFR (African American) 138 ML/MIN (>60); Glucose 133 mg/dl (74-100); HDL Cholesterol 36 mg/dl (40-60); Magnesium 1.3 mg/dl (1.6-2.3); Potassium 3.9 mmoL/L (3.5-5.1); Sodium 131 mmol/L (136-145); Triglycerides 88 mg/dl (30-150); VLDL Cholesterol 18 mg/dL (0-40)
[2021-12-18 07:14] LABS: Direct LDL Cholesterol 31.16 mg/dL (100-129)
--- NOTE | 2021-12-18 07:30 | P.CONPHA_ITS ---
[facility] VTE Monitoring - Patient Demographics Admission date: 12/17/21 Report Date: 12/18/21 Time: 07:30 Allergies/Adverse Reactions: Patient Allergies morphine [MORPHINE] Allergy (Severe, Verified 02/23/21 10:26) I-ITCHING influenza virus vaccine qs 2018- (6 mos and up) [From Fluarix Quad [id number] (PF)] Allergy (Verified 02/23/21 10:26) Unknown allergy reaction Height: 1.83 m Weight: 109.905 kg Patient Problems: Current Active Problems Obesity (BMI 30-39.9) (Chronic) Unstable angina (Acute) Type 2 diabetes mellitus with diabetic polyneuropathy, with long-term current use of insulin (Chronic) CAD (coronary artery disease) (Chronic) - VTE Risk Labs: VTE Related Lab Results Hgb 11.4 g/dL (14.1-18.0) L 12/18/21 06:20 Hct 32.3 % (42.0-52.0) L 12/18/21 06:20 Plt Count 178 K/mm3 (142-424) 12/18/21 06:20 BUN 11 mg/dl (9-20) 12/18/21 06:20 Creatinine 0.70 mg/dl (0.66-1.25) D 12/18/21 06:20 Estimated Creat Clear 118 mL/min (50-200) 12/18/21 06:20 - Prophylaxis VTE Prophylaxis Ordered?: Yes Types of VTE Prophylaxis: TEDS Knee High Location of Applied Device: Bilateral Lower Extremeties
--- NOTE | 2021-12-18 08:00 | CA_ITS ---
APPROVED REPORT EXAM: Comprehensive 2D, Doppler, and color-flow Echocardiogram Server Administrator: Roya Palacios RDCS Ht: 6 ft 0 in Wt: 250lbs BSA: 2.34 BP: 154/82 mmHg Indications: CP,HTN,CAD,COPD 2D Dimensions LVOT 1.99 cm (M/F) 1.5-2.5 M-Mode Dimensions RVDd 2.89 cm (0.9-2.6) LA Diam 4.08 cm (1.9-4.0) LVDd 4.86 cm (3.5-5.7) Ao Diam 3.31 cm (2.0-3.7) LVDs 3.54 cm (3.5-5.7) IVSd 0.92 cm (0.6-1.1) PWd 0.96 cm (0.6-1.1) EF (Teich) 52.80% FS 27.20% EDV (Teich) 110.70 mL ESV (Teich) 52.30 mL LV Diastology E Decel Time 177.00 (160-240 msec) E/A Ratio 1.0 MED E' 8.50 (< 7 cm/sec) E'/MED E' Ratio 10.76 (>14) LAT E' 8.40 (<10 cm/sec) E/LAT E' Ratio 10.89 (>14) Mitral Valve MV E Max Melchor. 91.00 (40-130 cm/s) MV A Velocity 90.00 (40-130 cm/s) E/A Ratio 1.02 MV Decel. Time 177.00 (160-240 ms) MV PHT 52.00 ms Left Ventricle Technically difficult study because of the patient factors and poor acoustic windows. Left atrium is mildly enlarged, left ventricle is normal size mild concentric left ventricular hypertrophy, estimated ejection fraction 55% with no regional wall motion abnormality, diastolic parameters are inconclusive. Right Ventricle Right atrium and right ventricle are mildly enlarged with normal contractility. Aortic Valve Aortic valve is minimally thickened and fibrosed there is no aortic stenosis or aortic insufficiency. Mitral Valve Mitral valve is grossly normal, there is trace mitral regurgitation. Tricuspid Valve Tricuspid grossly normal, there is trace tricuspid regurgitation, tricuspid regurgitation jet velocity is inadequate for calculation of the right ventricular systolic pressure. Pulmonic Valve Pulmonic valve is poorly visualized. Great Vessels Aortic root is normal size. Inferior vena cava is poorly visualized. Pericardium No significant pericardial effusion noted. Conclusion 1. Technically difficult study because of the patient factors and poor acoustic windows. Mild biatrial lodgment, normal left ventricular size mild concentric left ventricular hypertrophy, estimated ejection fraction 55% with no regional wall motion abnormality, diastolic parameters are inconclusive. 2. Mildly enlarged right ventricle with normal contractility. 3. Trace mitral and tricuspid regurgitation. 4. No significant pericardial effusion noted. Electronically signed by : Star Motley MD 12/18/2021 19:44:47
--- NOTE | 2021-12-18 09:13 | HMH.PHAINT ---
MEDICATION RECONCILIATION COMPLETED ON PATIENT USING MAR FROM [facility]. -BARRERA BARBA, MAUREEND
--- NOTE | 2021-12-18 10:23 | HMH.CNCARD ---
History of Present Illness Consult date: 12/18/21 Requesting physician: Junior Alas Consult reason: chest pain Chief complaint: chest pain Additional Medical History:: 1. Coronary artery disease A. History of coronary artery stenting, per patient the last stent was in 2000 B. [facility], 04/2017, YANIQUE to distal codominate OM and PDA C. [facility], 05/2017, 09/2017 and 02/2020 with recommendation for medical therapy. ANGIOGRAPHIC RESULTS The left main artery Normal The left anterior descending artery As proximal 10 to 20% stenoses followed by a mid vessel 30% stenosis followed by mid vessel stent which is widely patent with minimal concentric in-stent restenosis. There is an additional 30% concentric stenosis in the midsegment of the LAD approximately 2 mm diameter vessel. There is an additional stent in the distal segment which has 50 to 60% in-stent restenosis followed by an additional concentric 60 to 70% stenosis in a vessel less than 2 mm in diameter. Distally the LAD has 70 to 80% stenosis 2 cm proximal to its terminal aspect The circumflex artery Is a dominant vessel and has mild 10 to 20% proximal stenosis. A large third obtuse marginal artery has a proximal concentric 30 to 40% stenosis followed by distal 40 and 50% stenoses. The terminal obtuse marginal artery has a stent in its proximal through mid segment which has mild concentric in-stent restenosis The right coronary artery Is a nondominant yet still large vessel with a stent in the proximal to mid vessel segment with 10 to 20% concentric in-stent restenosis. The mid right coronary artery has a gap without stents which is widely patent. This is followed by stent which extends into the proximal posterior descending artery and extends into the mid segment. This contiguous portion of the stents are widely patent with one area of concentric in-stent restenosis in the body of the distal right coronary artery. The posterior descending artery is widely patent The MOTA ventriculogram reveals Normal 65% The left ventricular end-diastolic pressure 10 mmHg IMPRESSION Coronary artery disease as described above Normal ejection fraction Normal left ventricular end-diastolic pressure PLAN 1. I strongly favor medical management. Despite the moderate to severe disease in the mid to distal LAD this is not great anatomy for additional stenting inside the in-stent restenotic lesion. This vessel is patent with SATISH-3 flow and patient should be managed medically and less angina pectoris becomes absolutely intolerable and recalcitrant. Only then would I consider revascularizing the mid to distal LAD. 2. Maximize antianginal medication 3. Tete 55 Electronically signed by : Heladio Alonso, 03/14/2020 11:13:45 2. Diabetes mellitus, treated for about 10 years 3. Hypertension A. Echo, 03/03/2020, 1. Mildly enlarged left atrium, normal left ventricular size, mild concentric left ventricular hypertrophy, visually estimated ejection fraction 55% with no regional wall motion abnormality, grade 1 diastolic dysfunction seen without tissue Doppler evidence of raise left atrial pressure. 2. Mild mitral and tricuspid regurgitation. 3. No significant pericardial effusion noted. Electronically signed by : Star Motley, 03/03/2020 15:43:16 4. Hyperlipidemia 5. History of CVA/seizures 6. PAD A. History of partial left foot second toe amputation in past History of present illness: 61-year-old white male with history as noted above was sent from [facility] for evaluation of recurrent complaints of shortness of breath and chest pain. He describes the chest pain is starting to the right of his sternum going across the chest down into the upper abdominal area. Symptoms may occur with activity or just sitting and may be brief or prolonged in nature. He denies any nausea, vomiting or diaphoresis. Lower extremity edema has been a recurrent issue an
[2021-12-18 11:02] LABS: POC Glucose,Bedside 134 (70-110)
--- NOTE | 2021-12-18 13:53 | HMH.PTEV ---
Physical Therapy Evaluation Rehab PT IP Evaluation Start: 12/18/21 12:08 Freq: ONCE Status: Active Protocol: Document 12/18/21 13:48 MAL (Rec: 12/18/21 13:53 MAL [id number]) Subjective/History History History Pt admitted to [facility] thru ED for c/o chest pain Subjective Subjective pt reprorts to PT he gets nervous when he walks Rehab PT IP Eval Objective Appearance Patient Behavior Cooperative,Fearful Patient Orientation Place,Name,Birthday,Year Difficulty following instructions mild Speech Pattern Appropriate Ambulation Patient Able to Ambulate Yes Ambulation Observation IP General Gait Pattern Observation Wide Based Gait,Shuffling Step Ambulation Distance (feet) 50 Ambulation Assistive Device Straight Cane Ambulation Ability Supervision/Stand by,Contact Guard/Hand Hold Balance Ability to Arise Able, uses arms to help Sitting Balance Steady, safe Standing Balance Steady, wide stance Dynamic Sitting Balance Ability Good Dynamic Standing Balance Ability Good Transfers Bed Transfer Ability Independent Chair Transfer Ability Supervision/Stand by Sit to Stand Bed Transfer Ability Supervision/Stand by Sit to Stand Chair Transfer Ability Supervision/Stand by Rehab PT IP prob,goals,plan Problems Date of Evaluation: 12/18/21 Rehab Potential Rehab Potential Innapropriate for Skilled Therapy Discharge Plan PT Discharge Plan Pt safe to return to home upon dc once medically stable. Pt is at baseline function. Pt ambulates and transfers safely. G -code Required No PHYSICIAN CERTIFICATION: I certify the specified therapy services for Mayo Jain are required, authorized, and reviewed every 30 days.
--- NOTE | 2021-12-18 16:00 | PC.NURSE ---
PT IS RESTING IN BED. ALERT AND ORIENTED X3. NO COMPLAINTS OF CP OR SOA. PT STATES HE GETS VERY NERVOUS WHEN STANDING WHILE USING THE URINAL. PT HAS 2 + PITTING EDEMA NOTED TO LLE. 1+ NOTED TO RLE. LUNG SOUNDS DIMINISHED. ABDOMEN LARGE/SOFT/NON TENDER WITH ACTIVE BOWEL SOUNDS. SCATTERED ABRASIONS NOTED TO BLE. WILL CONTINUE TO MONITOR.
[2021-12-18 16:27] LABS: POC Glucose,Bedside 191 (70-110)
--- NOTE | 2021-12-18 20:21 | HMH.HP ---
*Admission Date: 12/17/21 *Chief complaint: chest pain *History of present illness: this patient presented from [facility] with progressive chest pain over the last few days -pt with partial relief in the ed with nitrates and because of ongoing pain and known ht dis and sig risk factors - pt was admitted for treatment and card eval [facility] History I have reviewed the patient's past medical history: Yes Medical History: Reports:: Asthma, Coronary Artery Disease, Cerebrovascular Accident, Diabetes Mellitus Type 2, Hyperlipidemia, Hypertension, MRSA, Myocardial Infarction, Peripheral Vascular Disease, Renal Disease, Renal Insufficiency Denies:: Cancer, Diabetes Mellitus Type 1, Internal Pacemaker, Seizures *Have you ever received a pneumonia vaccine?: No *Have you received a flu vaccine this season?: No Other Medical History: Reports: Arthritis Laterality Cases: Bilateral: Tonsillectomy, Other Other Surgeries: Yes: Cardiac Catheterization, Colonoscopy, Coronary Stent, Other. No: Pacemaker Amputation: Yes (Left toe, great) Fractures: No - *Social History Smoking Status: Never smoker Alcohol Intake: never Alcohol Intake Frequency:: other Substance Use Type: denies use *Occupational Status:: disabled Housing: long term Household Members: other *Travel in the last 8 weeks: None Family Hx:: Unable to obtain Review of Systems - Review of Systems Review of systems:: pertinent systems reviewed and negative unless documented below - Constitutional Reports lack of energy, Denies headache(s) - Eyes Denies change in vision - ENT Denies nosebleed, Denies neck pain - *Cardiovascular Reports chest pain at rest, Reports chest pain with activity, Reports shortness of breath - *Respiratory Reports shortness of breath, Denies coughing up blood - *Gastrointestinal Denies abdominal pain - *Genitourinary Denies blood in urine - *Musculoskeletal Denies joint pain, Denies back pain - Integumentary/Breasts Denies sores - *Neurologic Denies headache(s), Denies loss of vision, Denies seizure-like activity Meds Home Medications Medication Instructions Recorded Confirmed Type Insulin Aspart Prot/Insuln Asp 30 unit SQ AM 02/19/19 12/18/21 History [Novolog Mix 70/30 Flexpen 100 Units/mL 3mL] Acetaminophen [Tylenol 500mg 1,000 mg PO Q6HP PRN 04/29/19 12/18/21 History tablet] atorvastatin 80 mg tablet 80 mg PO HS #90 tab 02/21/20 12/17/21 Rx hydrochlorothiazide 25 mg tablet 25 mg PO DAILY #90 tab 02/21/20 12/18/21 Rx amitriptyline 10 mg tablet 10 mg PO DAILY tab 04/18/20 12/18/21 History citalopram 20 mg tablet 20 mg PO DAILY tab 04/18/20 12/18/21 History aspirin 81 mg tablet,delayed 81 mg PO DAILY #90 tab 04/19/20 12/18/21 Rx release Isosorbide Mononitrate [Isosorbide 120 mg PO DAILY 08/30/20 12/18/21 History Mononitrate ER] Pantoprazole Sodium 40 mg PO DAILY 08/30/20 12/17/21 History Ranolazine [Ranolazine ER] 1,000 mg PO BID 08/30/20 12/17/21 History carvediloL [Carvedilol 12.5mg Tab] 12.5 mg PO BID 11/02/20 12/18/21 History insulin aspar prot-insulin aspart 40 unit SQ 1800 ml 02/23/21 12/18/21 History 100 unit/mL (70-30) subcutaneous pen diltiazem HCl 120 mg 120 mg PO DAILY #30 cap 08/09/21 12/18/21 Rx capsule,extended release 24 hr Fluticasone/Vilanterol [Breo 1 puff IH DAILY 12/17/21 12/18/21 History Ellipta 100-25 Mcg INH] Icosapent Ethyl [Vascepa] 1 gm PO BID 12/17/21 12/18/21 History lisinopriL [Lisinopril] 5 mg PO DAILY 12/17/21 12/17/21 History Ticagrelor [Brilinta 90mg 90 mg PO BID 12/18/21 12/18/21 History Tablet] Allergies Allergy/AdvReac Type Severity Reaction Status Date / Time morphine [MORPHINE] Allergy Severe I-ITCHING Verified 02/23/21 10:26 influenza virus vaccine qs Allergy Unknown Verified 02/23/21 10:26 (6 mos and up) allergy [From Fluarix Quad reaction (PF)] Exam Vital signs and Labs for Last 24 Hours: Temp Pulse
[2021-12-18 20:37] LABS: POC Glucose,Bedside 196 (70-110)
[2021-12-19] VITALS: BP 125/59; PULSE 58; PULSE 60; RESP 17; TEMP 36.6; O2SAT 97
[2021-12-19 03:47] VITALS: BP 145/64; PULSE 68; RESP 16; TEMP 36.6; O2SAT 96
--- NOTE | 2021-12-19 03:48 | PC.NURSE ---
No acute changes this shift. Pt has slept well. Has ambulated to BR with standby assist. Has not c/o any CP or soa. Pt has some edema to bilateral feet. VSS. Call light within reach. Safety measures in place.
[2021-12-19 04:00] VITALS: PULSE 60
[2021-12-19 04:55] VITALS: BMI 31.5
[2021-12-19 06:47] LABS: POC Glucose,Bedside 215 (70-110)
--- NOTE | 2021-12-19 07:55 | HMH.PNCARD ---
Subjective Date: 12/19/21 Time: 07:56 Principal diagnosis: SOA, chest pain Interval history: 61-year-old white male in bed resting comfortably in no acute distress. Occasional chest soreness but otherwise no significant complaints. Exam Vital signs and Labs for Last 24 Hours: Temp Pulse Resp BP Pulse Ox 97.9 F 60 16 145/64 H 96 12/19/21 03:47 12/19/21 04:00 12/19/21 03:47 12/19/21 03:47 12/19/21 03:47 Laboratory Results - last 24 hr 12/18/21 10:47: POC Glucose 134 H 12/18/21 16:07: POC Glucose 191 H 12/18/21 20:15: POC Glucose 196 H 12/19/21 05:01: POC Glucose 215 H I & O for Last 24 hours: Intake & Output 12/16/21 12/17/21 12/18/21 12/19/21 11:59 11:59 11:59 11:59 Intake Total 1309 / 1309 960 / 960 Output Total 400 / 400 400 / 400 Balance 909 / 909 560 / 560 Weight 242 lb 4.785 oz 233 lb - Constitutional no acute distress - *Routine Respiratory Exam Present: CTA bilaterally - *Routine Cardiovascular Exam Present: RRR - *Routine Neurological Exam Present: alert, oriented X3 Progress Note: A&P (1) Chest pain Status: Acute (2) Shortness of breath Status: Acute (3) CAD (coronary artery disease) Status: Chronic (4) Obesity (BMI 30-39.9) Status: Chronic (5) Diabetes Status: Chronic (6) HHD (hypertensive heart disease) Status: Chronic (7) HLD (hyperlipidemia) Status: Chronic (8) Stented coronary artery Status: Chronic Assessment and Plan for All Diagnoses:: 1. Chest pain and shortness of breath with atypical features. Troponins normal x3, no acute changes on EKG and no evidence of CHF on chest x-ray or by lab work. Last cardiac cath from 02/[address] Alonso with recommendation to continue medical management at this time. Would not proceed with repeat cardiac catheterization unless patient develops evidence of acute myocardial infarction/ACS syndrome. Continue isosorbide 120 mg daily, Ranexa 1000 mg twice daily, Coreg 12.5 mg twice daily and diltiazem 120 mg daily. We will also continue Brilinta 90 mg twice daily. 2. History of diastolic congestive heart failure, continue blood pressure management. 3. Diabetes mellitus, per PCP 4. Hyperlipidemia, continue statin therapy. Stable from cardiac standpoint for discharge when PCP ready. Home medication recommendations Isosorbide mononitrate 120 mg daily Ranexa 1000 mg twice daily Coreg 12.5 mg twice daily Diltiazem CD 120 mg daily Aspirin 81 mg daily Atorvastatin 80 mg daily Lisinopril 5 mg daily HCTZ 25 mg daily Brilinta 90 mg twice daily Add spironolactone 25 mg daily Check BMP in 1 week Follow-up in our office in 2 to 4 weeks.
[2021-12-19 08:00] VITALS: BP 127/61; PULSE 60; PULSE 62; RESP 20; TEMP 36.8; O2SAT 99
--- NOTE | 2021-12-19 09:05 | HMH.DCSUM ---
General - General Admission date:: 12/17/21 Discharge date: 12/19/21 HPI HPI: this patient presented from [facility] with progressive chest pain over the last few days -pt with partial relief in the ed with nitrates and because of ongoing pain and known ht dis and sig risk factors - pt was admitted for treatment and card eval Hospital Course Hospital Course: this patient presented from [facility] with progressive chest pain over the last few days -pt with partial relief in the ed with nitrates and because of ongoing pain and known ht dis and sig risk factors - pt was admitted for treatment and card eval 12/18/2021 ECHO: Conclusion 1. Technically difficult study because of the patient factors and poor acoustic windows. Mild biatrial lodgment, normal left ventricular size mild concentric left ventricular hypertrophy, estimated ejection fraction 55% with no regional wall motion abnormality, diastolic parameters are inconclusive. 2. Mildly enlarged right ventricle with normal contractility. 3. Trace mitral and tricuspid regurgitation. 4. No significant pericardial effusion noted. Electronically signed by : Star Motley MD 12/17/2021 chest x-ray: No acute findings Cardiology has seen and recommends: 1. Chest pain and shortness of breath with atypical features. Troponins normal x3, no acute changes on EKG and no evidence of CHF on chest x-ray or by lab work. Last cardiac cath from 02/[address] Alonso with recommendation to continue medical management at this time. Would not proceed with repeat cardiac catheterization unless patient develops evidence of acute myocardial infarction/ACS syndrome. Continue isosorbide 120 mg daily, Ranexa 1000 mg twice daily, Coreg 12.5 mg twice daily and diltiazem 120 mg daily. We will also continue Brilinta 90 mg twice daily. 2. History of diastolic congestive heart failure, continue blood pressure management. 3. Diabetes mellitus, per PCP 4. Hyperlipidemia, continue statin therapy. Stable from cardiac standpoint for discharge when PCP ready. Home medication recommendations Isosorbide mononitrate 120 mg daily Ranexa 1000 mg twice daily Coreg 12.5 mg twice daily Diltiazem CD 120 mg daily Aspirin 81 mg daily Atorvastatin 80 mg daily Lisinopril 5 mg daily HCTZ 25 mg daily Brilinta 90 mg twice daily Add spironolactone 25 mg daily Check BMP in 1 week Follow-up in our office in 2 to 4 weeks. 61-year-old male patient sitting up in bed resting quietly with eyes open. He denies any chest pain or shortness of breath during the night and is pain-free at present. Current oxygenation status 96% on room air. Discussed discharge back to [facility] today he is agreement with this with follow-up to be scheduled. PLAN: 1. We will discharge back to [facility] today 2. Follow-up with PCP in 1 week 3. Follow-up with cardiology in 1 week 4. Medications optimized per cardiology, add spironolactone Objective Vital signs: Temp Pulse Resp BP Pulse Ox 97.9 F 60 16 145/64 H 96 12/19/21 03:47 12/19/21 04:00 12/19/21 03:47 12/19/21 03:47 12/19/21 03:47 no acute distress - *Routine HEENT Exam Head: Present: normocephalic Eye: Present: EOMI ENT: Present: mucous membranes moist - *Routine Neck Exam Present: trachea midline. Absent: tracheal deviation - *Routine Respiratory Exam Present: CTA bilaterally. Absent: accessory muscle use - *Routine Cardiovascular Exam Present: RRR - *Routine Abdominal Exam Present: soft, normoactive bowel sounds. Absent: tenderness, firm - *Routine Extremities Exam Present: edema, full ROM, pulses intact. Absent: cyanosis, clubbing - *Routine Skin Exam Present: intact, dry. Absent: cyanosis, erythema - *Routine Neurological Exam Present: alert, altered mental status. Absent: motor deficit - Routine Psychiatric Exam Present: unable to assess Results Labs on day of discharge:
--- NOTE | 2021-12-19 10:25 | PC.NURSE ---
Called and spoke w/ Dr. Alas's office in [place] to pts med req, not being complete for d/c. Awaiting cb at this time.
--- NOTE | 2021-12-19 10:39 | SW/DCPLANNER ---
Addendum entered by Karen Butler 12/19/21 10:59: [facility] and uses [facility]. I will set up [facility] once patient is completely stable for discharge. Original Note: The plan for this patient is to return back to [facility] today. I have a message out for Saida/Amara at [facility] regarding transportation and COVID swab.
--- NOTE | 2021-12-19 11:38 | PC.NURSE ---
awaiting for patient transport at this time
--- NOTE | 2021-12-19 12:55 | PC.NURSE ---
Awaiting ftsb at this time.
[2021-12-19 18:47] LABS: POC Glucose,Bedside 143 (70-110)
--- NOTE | 2021-12-20 11:28 | CARE MANAGER ---
Contacted [facility] and checked on patient. They stated he received his medications and he is doing well. Deny any questions or concerns at this time. ALINA Maloney
== END 2021-12-19 14:10 | disposition home or self-care (01) ==
LOC: ER 20:28 → 2ND 22:14
PROVIDERS: Admitting Provider Emergency Medicine; Emergency Provider Emergency Medicine; PCP Emergency Medicine; Visit Provider Emergency Medicine
DX: I25.110 Atherosclerotic heart disease of native coronary artery with unstable angina pectoris (principal); E11.9 Type 2 diabetes mellitus without complications; Z79.4 Long term (current) use of insulin; I11.0 Hypertensive heart disease with heart failure; E78.5 Hyperlipidemia, unspecified; I50.9 Heart failure, unspecified; Z95.5 Presence of coronary angioplasty implant and graft; Z20.822 Contact with and (suspected) exposure to COVID-19
CPT/HCPCS: G0378; 36415; 71046; 80048; 80061; 82962; 83036; 83735; 83880; 84145; 84484; 85025; 85651; 86140; 93005; 93306; 99285; C9803; J3475; U0003; U0005

== ENCOUNTER → 2022-01-05 07:00 | Outpatient (CLI) | payer MEDICARE, MEDICAID, SELFPAY ==
--- NOTE | 2022-01-05 07:01 | NM_ITS ---
APPROVED REPORT Exam: Nuclear Stress Test Indication: CAD, H/O MT, HTN, DM, FM HX, C.P., SOB, FATIGUE Patient Location: Outpatient Stress Tech: Isa Bowman [place] Tech:Trena JeffLYNDSEY RT (R)(N)(M) Ht: 5 ft 6 in Wt: 241 lbs HR: 60 bpm BP: 151/71 mmHg BSA: 2.16 m2 TID: 1.34 BMI: 38.8 History: CAD, H/O MT, HTN, DM, FM HX, C.P., SOB, FATIGUE Procedure: Patient received a 0.4 mg of intravenous Lexiscan, resting heart rate 60 bpm, resting blood pressure 151/71 mmHg, with Lexiscan maximum heart rate achived was 70 bpm which is Less than 85 % of the maximum predicted heart rate and blood pressure was 146/70 mmHg. With Lexiscan, patient denied any complaint of chest pain. Electrocardiogram Resting electrocardiogram shows sinus rhythm, with Lexiscan less than 1.[address] segment depression noted from the baseline EKG. The EKG portion of the Lexiscan is nondiagnostic. Cardiac Stress and Resting SPECT Images: Cardiac Stress and Resting SPECT images were obtained using technetium 99m Myoview 31.4 mCi stress and 10.0 mCi at rest. Gated SPECT for analysis of segmental wall motion and calculation of the ejection fraction also done. Cardiac stress and rest SPECT may show uniform myocardial activity without segmental perfusion abnormality, computer derived ejection fraction is 60% with no regional wall motion abnormality, right ventricle is normal size and contractility. Conclusion: 1. The EKG portion of the Lexiscan is nondiagnostic. 2. No scintigraphic evidence of reversible ischemia seen, compared right ejection fraction is 60% with no regional wall motion abnormality, right ventricle is normal size and contractility. 3. Normal Lexiscan Myoview study. Electronically signed by : Star Motley MD 01/05/2022 11:51:30
--- NOTE | 2022-01-05 07:01 | CA_ITS ---
APPROVED REPORT Exam: Pharmacologic Technologist: Trudy Mi, Ht: 6 ft 0 in Wt: 239 lbs BSA: 2.30 m2 HR: 60 bpm BP: 151/71 mmHg Medical History Medications: Lisinopril,,,,, Aspirin,,,,, Pantoprazole,,,,, Atorvastatin,,,,, HCTZ,,,,, Carvedilol,,,,, Citalopram,,,,, Ticagrelor,,,,, INSULIN,,,,, AmiTRIPTYLINE,,,,, SpirOnolactone,,,,, Imdur,,,,, Stress Test Details Test: LEXISCAN Reason for pharmacologic stress test: physical limitation. HR Resting HR: 61 bpm Max Heart Rate (APMHR): 157 bpm Max HR Achieved: 73 bpm Target HR (85% APMHR): 133 bpm % of APMHR: 47 Recovery HR: 62 bpm BP Resting BP: 151.0/71.0 mmHg Max BP: 151.0/71.0 mmHg Recovery BP: 148.0/72.0 mmHg ECG Clinical Exercise duration: 04:09 min Highest Stage Achieved: Exercise capacity: 1.0 METs Stress ECG Conclusion Symptoms: nausea, SOA, no CP Arrhythmias/Ectopy: None ST-T Changes: <1.5mm ST Changes Test Summary REST . . . . . . . Resting REST 02:24 . . 61 . 151/ 71 . . Stage 1 01:00 . . 63 . . . . Stage 2 01:00 . . 70 . . . . Stage 3 01:00 . . 70 . 149/ 66 . . Stage 4 01:00 . . 69 . 143/ 70 . . Stage 4 01:09 . . 68 . 143/ 70 . Stop exercise at 04:09 RECOVERY 01:00 . . 67 . 144/ 70 . . RECOVERY 02:00 . . 71 . 144/ 70 . . RECOVERY 02:37 . . 68 . 148/ 72 . . Electronically signed by : Star Motley MD 01/05/2022 11:40:00
== END ==
PROVIDERS: PCP Emergency Medicine; Visit Provider Physician Assistant
DX: E11.9 Type 2 diabetes mellitus without complications (principal); R07.9 Chest pain, unspecified; Z79.4 Long term (current) use of insulin
CPT/HCPCS: 78452; 93017; A9502; J2785

== ENCOUNTER 2022-02-17 09:21 | Emergency (ER) | payer MEDICARE, MEDICAID, SELFPAY ==
[2022-02-17] VITALS (12 sets, daily range): BP systolic 121–170; BP diastolic 61–84; PULSE 56–60; RESP 15–17; TEMP 36.3–37; O2SAT 96–100; BMI 36.1
--- NOTE | 2022-02-17 09:33 | HMH.EDGENADL ---
Discharge Plan Disposition Patient Disposition: Home, Self-Care Condition: Good Chief Complaint: Weakness Prescriptions Prescriptions: No Action citalopram 20 mg tablet 20 mg PO DAILY hydrochlorothiazide 25 mg tablet 25 mg PO DAILY Qty: 90 3RF atorvastatin 80 mg tablet 80 mg PO HS Qty: 90 3RF aspirin 81 mg tablet,delayed release (DR/EC) 81 mg PO DAILY Qty: 90 3RF diltiazem HCl 120 mg capsule,extended release 24hr 120 mg PO DAILY Qty: 30 2RF isosorbide mononitrate 120 MG tablet extended release 24 hr 120 mg PO DAILY pantoprazole 40 MG tablet,delayed release (DR/EC) 40 mg PO DAILY ranolazine 1,000 MG tablet extended release 12 hr 1,000 mg PO BID insulin asp prt-insulin aspart 100 unit/mL (70-30) insulin pen 40 unit SQ 1800 carvedilol 12.5 MG tablet 12.5 mg PO BID lisinopril 5 MG tablet 5 mg PO DAILY icosapent ethyl 1 GM capsule 1 gm PO BID fluticasone furoate-vilanterol 1 EACH blister with device 1 puff IH DAILY ticagrelor 90 MG tablet 90 mg PO BID spironolactone 25 MG tablet 25 mg PO DAILY 30 Days Qty: 30 0RF insulin asp prt-insulin aspart 100 UNIT/ML insulin pen 30 unit SQ AM acetaminophen 500 MG tablet 1,000 mg PO Q6HP PRN (Reason: PAIN/FEVER) Label Comments: TAKE TWO TABLETS BY MOUTH EVERY 6 HOURS NEEDED FOR PAIN amitriptyline 10 mg tablet 10 mg PO DAILY Clinical Impressions Clinical Impression: Weakness Instructions Patient Instructions: DI for Muscle Weakness Discharge ED Provider: Jefry Onofre General Adult HPI General Chief complaint: Weakness Stated complaint: Weakness Time Seen by Provider: 02/17/22 09:33 Mode of Arrival: EMS History of Present Illness HPI narrative: 62-year-old male with past medical history of coronary disease, renal insufficiency, hyponatremia, diabetes, hypertension, hyperlipidemia. He presents via EMS for generalized weakness, shakiness, states he awoke from bed this morning, got up had difficulty making it to the kitchen. Per EMS initial glucose prehospital was 195. He denies overt pain anywhere, states he has periodic diarrhea though nothing acute. He denies fevers, chills, nausea, vomiting, specifically no chest pain or shortness of breath. I asked if he had had any dark stools or notable blood in stools, he states he has ulcers but did not notice any difference in stool at this time. Exertion seems to exacerbate symptoms, rest does seem to help. Related Data Home Medications Medication Instructions Recorded Confirmed insulin aspar prot-insulin aspart 30 unit SQ AM Diabetes 02/19/19 12/26/21 100 unit/mL (70-30) subcutaneous pen acetaminophen 500 mg tablet 1,000 mg PO Q6HP PRN PAIN/FEVER 04/29/19 12/26/21 amitriptyline 10 mg tablet 10 mg PO DAILY MOOD 04/18/20 12/26/21 citalopram 20 mg tablet 20 mg PO DAILY MOOD 04/18/20 12/26/21 isosorbide mononitrate 120 mg 120 mg PO DAILY Hypertension 08/30/20 12/26/21 tablet,extended release 24 hr pantoprazole 40 mg tablet,delayed 40 mg PO DAILY GERD 08/30/20 12/26/21 release ranolazine 1,000 mg 1,000 mg PO BID ANGINA 08/30/20 12/26/21 tablet,extended release,12 hr carvedilol 12.5 mg tablet 12.5 mg PO BID Hypertension 11/02/20 12/26/21 insulin aspar prot-insulin aspart 40 unit SQ 1800 Diabetes 02/23/21 12/26/21 100 unit/mL (70-30) subcutaneous pen fluticasone furoate 100 1 puff inhalation DAILY Breathing 12/17/21 12/26/21 mcg-vilanterol 25 mcg/dose problems inhalation powder icosapent ethyl 1 gram capsule 1 gm PO BID Cholesterol 12/17/21 12/26/21 lisinopril 5 mg tablet 5 mg PO DAILY Hypertension 12/17/21 12/26/21 ticagrelor 90 mg tablet 90 mg PO BID PLATELET INHIBITOR 12/18/21 12/26/21 Previous Rx's Medication Instructions Recorded atorvastatin 80 mg tablet 80 mg PO HS Cholesterol #90 tabs 02/21/20 hydrochlorothiazide 25 mg tablet 25 mg PO DAILY FLUID/BLOOD 02/21/20 PRE
--- NOTE | 2022-02-17 09:37 | XR_ITS ---
PROCEDURE INFORMATION: Exam: XR Chest Exam date and time: 02/17/2022 10:05 AM Age: 62 years old Clinical indication: Patient HX: Chest pain, weakness; Additional info: Sob/cp TECHNIQUE: Imaging protocol: Radiologic exam of the chest. Views: 1 view. COMPARISON: CR XR CHEST 2V 12/17/2021 9:13 PM FINDINGS: Lungs: Hyperinflation , interstitial prominence, chronic granulomatous disease. Pleural spaces: No significant pleural effusion. Heart/Mediastinum: Borderline cardiomegaly and prominent epicardial fat. Bones/joints: Degenerative change. IMPRESSION: Hyperinflation , interstitial prominence, and chronic granulomatous disease.
--- NOTE | 2022-02-17 09:52 | ECG_ITS ---
APPROVED REPORT Exam: Resting ECG HR:58 bpm ECG Measurements Heart Rate 58 AXES NJ 177 P -13 QRSd 100 QRS 25 QT 351 T 43 QTc 347 Conclusion SINUS BRADYCARDIA Isolated Q in III - new since 12/15 BORDERLINE ECG UNCONFIRMED REPORT Electronically signed by : Yonis Aceves MD 02/22/2022 16:06:37
[2022-02-17 09:59] LABS: Basophils # 0.1 K/mm3 (0-0.2); Basophils % 0.4 % (0.1-2.0); Eosinophils # 0.2 K/mm3 (0.0-0.4); Eosinophils % 1.6 % (0.1-12.0); Hemoglobin 11.5 g/dL (14.1-18.0); Lymphocytes # 1.4 K/mm3 (0.7-4.5); Lymphocytes % 11.2 % (10-50); Mean Corpuscular Hemoglobin 33.9 pg (27.0-31.2); Mean Corpuscular Volume 99.8 fl (80-94); Mean Platelet Volume 8.5 fl (7.4-10.4); Monocytes # 0.6 K/mm3 (0.1-1.0); Monocytes % 5.1 % (1.7-9.3); Neutrophils # 10.2 K/mm3 (1.8-7.8); Neutrophils % 81.8 % (37.0-80.0); Platelet Count 206 K/mm3 (142-424); Red Blood Count 3.41 M/mm3 (4.60-6.20); Red Cell Distribution Width 14.4 % (11.5-17.5); White Blood Count 12.4 K/mm3 (4.8-10.8)
[2022-02-17 10:07] LABS: Chloride 94 mmol/L (98-107); Potassium 4.8 mmoL/L (3.5-5.1); Sodium 132 mmol/L (136-145)
[2022-02-17 10:09] LABS: Blood Urea Nitrogen 13 mg/dl (9-20); Creatinine Clearance Estimated 107 mL/min (50-200); Estimated Glomerular Filt Rate 85 ml/min (>60); GFR (African American) 103 ML/MIN (>60)
[2022-02-17 10:10] LABS: Alanine Aminotransferase 29 U/L (12-78); Albumin/Globulin Ratio 1.1 (1.1-1.8); Alkaline Phosphatase 99 U/L (38-126); Anion Gap 18.8 mEq/L (5-15); Aspartate Amino Transferase 36 U/L (17-59); Bilirubin,Total 1.3 mg/dl (0.2-1.3); Calcium 8.3 mg/dl (8.4-10.2); Carbon Dioxide 24 mmol/L (22.0-30.0); Globulin 3.5 g/dL (1.3-3.2); Glucose 212 mg/dl (74-100); Magnesium 1.2 mg/dl (1.6-2.3); Total Protein,Serum 7.5 g/dl (6.3-8.2)
--- NOTE | 2022-02-17 10:13 | PC.NURSE ---
COVID swab sent to lab
--- NOTE | 2022-02-17 10:17 | PC.NURSE ---
Assisted with helping pt stand and urinate and pt could not produce urine. RN hanging fluids in room at this time
[2022-02-17 10:21] LABS: Coronavirus 19, PCR Not Detected (NotDetected); Influenza A, PCR Not Detected (NotDetected); Influenza B, PCR Not Detected (NotDetected)
[2022-02-17 10:22] LABS: Troponin I < 0.01 ng/ml (0.00-0.034)
--- NOTE | 2022-02-17 10:30 | PC.NURSE ---
Registration at bedside.
--- NOTE | 2022-02-17 12:37 | PC.NURSE ---
pt attemping to produce urine specimen
[2022-02-17 12:49] LABS: Microscopic, Urine URINE MICROSCOPIC (MICROSCOPIC)
[2022-02-17 12:56] LABS: Appearance,Urine CLEAR (Clear); Bilirubin,Urine Negative (Negative); Blood, Urine Negative (Negative); Color,Urine YELLOW (Yellow); Glucose,Urine (UA) Negative (Negative); Ketones,Urine Negative (Negative); Leukocyte Esterase,Urine Negative (Negative); Nitrate,Urine Negative (Negative); Protein,Urine Negative (Negative)
[2022-02-17 13:40] LABS: Troponin I < 0.01 ng/ml (0.00-0.034)
== END 2022-02-17 14:30 | disposition home or self-care (01) ==
PROVIDERS: Emergency Provider Emergency Medicine; PCP Emergency Medicine
DX: R53.1 Weakness (principal); R19.7 Diarrhea, unspecified; R00.1 Bradycardia, unspecified; D72.829 Elevated white blood cell count, unspecified; R53.82 Chronic fatigue, unspecified; Z20.822 Contact with and (suspected) exposure to COVID-19; N28.9 Disorder of kidney and ureter, unspecified; E78.5 Hyperlipidemia, unspecified; E11.621 Type 2 diabetes mellitus with foot ulcer; M94.0 Chondrocostal junction syndrome [Tietze]; Z79.1 Long term (current) use of non-steroidal anti-inflammatories (NSAID); Z79.4 Long term (current) use of insulin; Z79.51 Long term (current) use of inhaled steroids; Z79.82 Long term (current) use of aspirin; Z79.899 Other long term (current) drug therapy; Z88.0 Allergy status to penicillin; Z88.8 Allergy status to other drugs, medicaments and biological substances
CPT/HCPCS: 71045; 80053; 81001; 83735; 84484; 85025; 93005; 96360; 99284; C9803; U0003; U0005

== ENCOUNTER 2022-05-29 16:33 | Emergency (ER) | payer MEDICARE, OTHER, SELFPAY ==
[2022-05-29 16:33] VITALS: BP 104/54; PULSE 68; RESP 18; TEMP 36.7; O2SAT 99; BMI 31.3
[2022-05-29 16:41] VITALS: BP 95/56; PULSE 67; RESP 16; O2SAT 98
--- NOTE | 2022-05-29 16:41 | CT_ITS ---
PROCEDURE INFORMATION: Exam: CT Cervical Spine Without Contrast Exam date and time: 05/29/2022 4:57 PM Age: 62 years old Clinical indication: Injury or trauma; Fall; Blunt trauma; Patient HX: Patient is a diabetic, he passed out and fell in a [facility]. Patient is on hard EMS backboard with a cervical collar in place for stabilization. TECHNIQUE: Imaging protocol: Computed tomography of the cervical spine without contrast. Radiation optimization: All CT scans at this facility use at least one of these dose optimization techniques: automated exposure control; mA and/or kV adjustment per patient size (includes targeted exams where dose is matched to clinical indication); or iterative reconstruction. COMPARISON: CT HEAD/BRAIN WO CON 05/29/2022 4:55 PM FINDINGS: Bones/joints: Congenital fusion C2 and C3. No cervical fracture or subluxation. Moderate spondylosis most evident C6-C7 without CT evidence of critical stenosis. Mastoid air cells: There is fluid in the right and to a lesser extent left mastoid aircells without coalescence or cortical breakthrough. Lungs: Lung apices are normal. Soft tissues: Unremarkable. IMPRESSION: 1. There is fluid in the right and to a lesser extent left mastoid aircells without coalescence or cortical breakthrough. 2. No cervical fracture or subluxation.
--- NOTE | 2022-05-29 16:41 | CT_ITS ---
PROCEDURE INFORMATION: Exam: CT Head Without Contrast Exam date and time: 05/29/2022 4:55 PM Age: 62 years old Clinical indication: Injury or trauma; Fall; Blunt trauma (contusions or hematomas); Consciousness not specified; Patient HX: Patient is a diabetic. He passed out and fell at [facility]. He is on an EMS backboard with cervical collar in place for stabilization. TECHNIQUE: Imaging protocol: Computed tomography of the head without contrast. Radiation optimization: All CT scans at this facility use at least one of these dose optimization techniques: automated exposure control; mA and/or kV adjustment per patient size (includes targeted exams where dose is matched to clinical indication); or iterative reconstruction. COMPARISON: CT HEAD/BRAIN WO CON 08/30/2020 5:18 PM FINDINGS: Brain: No intracranial bleed, suspicious mass, or mass effect. Ventricles appear unremarkable. There is limited low attenuation change in the white matter most consistent with chronic age related small vessel ischemic change. No acute territorial infarction is seen. These can be initially occult on head CT. Cerebral ventricles: See Brain finding. Paranasal sinuses: Visualized sinuses are unremarkable. No fluid levels. Mastoid air cells: There is fluid in the right mastoid aircells without coalescence or cortical breakthrough. Dental: Severe dental disease with bilateral maxillary periapical lucencies. Bones/joints: See Mastoid air cells finding. Soft tissues: Unremarkable. IMPRESSION: 1. No intracranial bleed, suspicious mass, or mass effect. Ventricles appear unremarkable. 2. There is limited low attenuation change in the white matter most consistent with chronic age related small vessel ischemic change. No acute territorial infarction is seen. These can be initially occult on head CT. 3. There is fluid in the right mastoid aircells without coalescence or cortical breakthrough. 4. Severe dental disease with bilateral maxillary periapical lucencies.
--- NOTE | 2022-05-29 16:50 | PC.NURSE ---
PT TO CT
--- NOTE | 2022-05-29 17:03 | PC.NURSE ---
PT RETURNED FROM CT
--- NOTE | 2022-05-29 17:30 | PC.NURSE ---
PT GIVEN WARM BLANKET, NO NEEDS VOICED. IV STARTED AND BLOOD DRAWN
[2022-05-29 17:45] LABS: Coronavirus 19, PCR Not Detected (NotDetected); Influenza A, PCR Not Detected (NotDetected); Influenza B, PCR Not Detected (NotDetected)
[2022-05-29 17:52] LABS: Basophils % 0.3 % (0.1-2.0); Eosinophils # 0.2 K/mm3 (0.0-0.4); Hematocrit 31.9 % (42.0-52.0); Hemoglobin 10.6 g/dL (14.1-18.0); Lymphocytes # 1.3 K/mm3 (0.7-4.5); Lymphocytes % 16.4 % (10-50); Mean Corpuscular HGB Conc 33.1 g/dL (31.8-35.4); Mean Corpuscular Hemoglobin 33.6 pg (27.0-31.2); Mean Corpuscular Volume 101.3 fl (80-94); Mean Platelet Volume 8.6 fl (7.4-10.4); Monocytes # 0.7 K/mm3 (0.1-1.0); Monocytes % 8.6 % (1.7-9.3); Neutrophils # 5.7 K/mm3 (1.8-7.8); Neutrophils % 71.7 % (37.0-80.0); Platelet Count 219 K/mm3 (142-424); Red Blood Count 3.14 M/mm3 (4.60-6.20); Red Cell Distribution Width 14.1 % (11.5-17.5); White Blood Count 7.9 K/mm3 (4.8-10.8)
[2022-05-29 17:55] LABS: Chloride 99 mmol/L (98-107); Sodium 131 mmol/L (136-145)
--- NOTE | 2022-05-29 17:55 | XR_ITS ---
PROCEDURE INFORMATION: Exam: XR Pelvis Exam date and time: 05/29/2022 6:17 PM Age: 62 years old Clinical indication: Injury or trauma; Fall; Blunt trauma (contusions or hematomas); Bilateral; Pelvic region TECHNIQUE: Imaging protocol: Radiologic exam of the pelvis. Views: 1 or 2 view. COMPARISON: CT ABDOMEN PELVIS W CON 04/27/2019 7:45 PM FINDINGS: Bones/joints: Moderate degenerative changes with no fracture or focal bony lesion seen. Nondisplaced fractures in osteopenic patients can be initially occult on xray. Follow up as clinically indicated. Soft tissues: Soft tissues grossly unremarkable. IMPRESSION: Moderate degenerative changes with no fracture or focal bony lesion seen. Nondisplaced fractures in osteopenic patients can be initially occult on xray. Follow up as clinically indicated.
--- NOTE | 2022-05-29 17:55 | XR_ITS ---
PROCEDURE INFORMATION: Exam: XR Chest Exam date and time: 05/29/2022 6:17 PM Age: 62 years old Clinical indication: Injury or trauma; Fall; Blunt trauma (contusions or hematomas) TECHNIQUE: Imaging protocol: Radiologic exam of the chest. Views: 1 view. COMPARISON: CR XR CHEST PORTABLE 02/17/2022 10:05 AM FINDINGS: Lungs: No lobar consolidation, pleural effusion or pulmonary edema. Pleural spaces: See Lungs finding. Heart/Mediastinum: Borderline heart size. Bones/joints: Unremarkable. IMPRESSION: No lobar consolidation, pleural effusion or pulmonary edema.
[2022-05-29 17:56] LABS: Potassium 4.5 mmoL/L (3.5-5.1)
[2022-05-29 17:58] LABS: Alanine Aminotransferase 23 U/L (12-78); Albumin Level 3.6 g/dl (3.5-5.0); Alkaline Phosphatase 104 U/L (38-126); Anion Gap 14.5 mEq/L (5-15); Aspartate Amino Transferase 37 U/L (17-59); Blood Urea Nitrogen 16 mg/dl (9-20); Carbon Dioxide 22 mmol/L (22.0-30.0); Creatinine Clearance Estimated 87 mL/min (50-200); Estimated Glomerular Filt Rate 67 ml/min (>60); GFR (African American) 82 ML/MIN (>60); Globulin 3.5 g/dL (1.3-3.2); Total Protein,Serum 7.1 g/dl (6.3-8.2)
[2022-05-29 17:59] LABS: Calcium 8.1 mg/dl (8.4-10.2); Glucose 135 mg/dl (74-100)
--- NOTE | 2022-05-29 18:04 | PC.NURSE ---
PT TO XR
--- NOTE | 2022-05-29 18:14 | PC.NURSE ---
PT RETURNED FROM XR
--- NOTE | 2022-05-29 19:16 | PC.NURSE ---
1835 PT REMOVED FROM BACK BOARD PER VERBAL MD ORDER, C-COLLAR REMAINS IN PLACE
--- NOTE | 2022-05-29 20:43 | HMH.EDFALL ---
Discharge Plan Disposition Patient Disposition: Home, Self-Care Prescriptions Prescriptions: No Action citalopram 20 mg tablet 20 mg PO DAILY hydrochlorothiazide 25 mg tablet 25 mg PO DAILY Qty: 90 3RF atorvastatin 80 mg tablet 80 mg PO HS Qty: 90 3RF aspirin 81 mg tablet,delayed release (DR/EC) 81 mg PO DAILY Qty: 90 3RF diltiazem HCl 120 mg capsule,extended release 24hr 120 mg PO DAILY Qty: 30 2RF isosorbide mononitrate 120 MG tablet extended release 24 hr 120 mg PO DAILY pantoprazole 40 MG tablet,delayed release (DR/EC) 40 mg PO DAILY ranolazine 1,000 MG tablet extended release 12 hr 1,000 mg PO BID insulin asp prt-insulin aspart 100 unit/mL (70-30) insulin pen 40 unit SQ 1800 carvedilol 12.5 MG tablet 12.5 mg PO BID lisinopril 5 MG tablet 5 mg PO DAILY icosapent ethyl 1 GM capsule 1 gm PO BID fluticasone furoate-vilanterol 1 EACH blister with device 1 puff IH DAILY ticagrelor 90 MG tablet 90 mg PO BID spironolactone 25 MG tablet 25 mg PO DAILY 30 Days Qty: 30 0RF insulin asp prt-insulin aspart 100 UNIT/ML insulin pen 30 unit SQ AM acetaminophen 500 MG tablet 1,000 mg PO Q6HP PRN (Reason: PAIN/FEVER) Label Comments: TAKE TWO TABLETS BY MOUTH EVERY 6 HOURS NEEDED FOR PAIN amitriptyline 10 mg tablet 10 mg PO DAILY Clinical Impressions Clinical Impression: Fall, Concussion without loss of consciousness Instructions Patient Instructions: How to Prevent Falls Discharge ED Provider: Junior Alas Fall HPI General Chief Complaint: Fall Stated Complaint: fall Time Seen by Provider: 05/29/22 20:00 Mode of Arrival: EMS Source of Information: Patient, EMS and Medical Record Limitations: No Limitations Description of Symptoms (Recalled from ER Triage Doc. by RN): PT STATES HE GOT DIZZY WHILE STANDING, FELL INTO TRASH CAN, HIT WALL AND HEAD ON THE WAY DOWN. REPORTS PAIN TO BACK OF HEAD AND A KNOT History of Present Illness HPI Narrative: [facility] and [facility] with hitting head but no loc - MD complaint: fall Onset (ago): hour(s) Fall from: standing Fall witnessed: yes, by bystander Place fall occurred: other ([facility]itentiary ) Loss of consciousness: none Prolonged down time: no Symptoms prior to fall: dizziness Location of injury: head and neck Severity: moderate Associated symptoms (after fall): denies Related Data Home Medications Medication Instructions Recorded Confirmed insulin aspar prot-insulin aspart 30 unit SQ AM Diabetes 02/19/19 12/26/21 100 unit/mL (70-30) subcutaneous pen acetaminophen 500 mg tablet 1,000 mg PO Q6HP PRN PAIN/FEVER 04/29/19 12/26/21 amitriptyline 10 mg tablet 10 mg PO DAILY MOOD 04/18/20 12/26/21 citalopram 20 mg tablet 20 mg PO DAILY MOOD 04/18/20 12/26/21 isosorbide mononitrate 120 mg 120 mg PO DAILY Hypertension 08/30/20 12/26/21 tablet,extended release 24 hr pantoprazole 40 mg tablet,delayed 40 mg PO DAILY GERD 08/30/20 12/26/21 release ranolazine 1,000 mg 1,000 mg PO BID ANGINA 08/30/20 12/26/21 tablet,extended release,12 hr carvedilol 12.5 mg tablet 12.5 mg PO BID Hypertension 11/02/20 12/26/21 insulin aspar prot-insulin aspart 40 unit SQ 1800 Diabetes 02/23/21 12/26/21 100 unit/mL (70-30) subcutaneous pen fluticasone furoate 100 1 puff inhalation DAILY Breathing 12/17/21 12/26/21 mcg-vilanterol 25 mcg/dose problems inhalation powder icosapent ethyl 1 gram capsule 1 gm PO BID Cholesterol 12/17/21 12/26/21 lisinopril 5 mg tablet 5 mg PO DAILY Hypertension 12/17/21 12/26/21 ticagrelor 90 mg tablet 90 mg PO BID PLATELET INHIBITOR 12/18/21 12/26/21 Previous Rx's Medication Instructions Recorded atorvastatin 80 mg tablet 80 mg PO HS Cholesterol #90 tabs 02/21/20 hydrochlorothiazide 25 mg tablet 25 mg PO DAILY FLUID/BLOOD 02/21/20 PRESSURE #90 tabs aspirin 81 mg tablet,delayed 81 mg PO
[2022-05-29 20:50] VITALS: BP 123/62; PULSE 68; O2SAT 100
[2022-05-29 21:00] VITALS: BP 125/68; PULSE 67; RESP 20; TEMP 36.7; O2SAT 98
--- NOTE | 2022-05-29 21:10 | PC.NURSE ---
Called [facility] regarding patient discharge. Advised that she will be here soon for transport. Patient ambulated to the restroom indepently, however, he said he was anxious about falling.
[2022-05-29 21:30] LABS: Hemoglobin A1C 6.5 % (4.0-6.0)
== END 2022-05-29 21:30 | disposition home or self-care (01) ==
PROVIDERS: Emergency Medicine; Emergency Provider Emergency Medicine
DX: S06.0X0A Concussion without loss of consciousness, initial encounter (principal); R42 Dizziness and giddiness; R00.1 Bradycardia, unspecified; E11.621 Type 2 diabetes mellitus with foot ulcer; L97.529 Non-pressure chronic ulcer of other part of left foot with unspecified severity; R06.00 Dyspnea, unspecified; R53.83 Other fatigue; I11.9 Hypertensive heart disease without heart failure; E66.9 Obesity, unspecified; N28.9 Disorder of kidney and ureter, unspecified; I20.0 Unstable angina; W19.XXXA Unspecified fall, initial encounter
CPT/HCPCS: 70450; 71045; 72125; 72170; 80053; 83036; 85025; 96360; 99285; C9803; U0003; U0005

== ENCOUNTER 2022-06-12 16:19 | Emergency (ER) | payer MEDICARE, OTHER, SELFPAY ==
[2022-06-12] VITALS (9 sets, daily range): BP systolic 103–129; BP diastolic 45–63; PULSE 62–79; RESP 15–20; TEMP 36.8–37.2; O2SAT 92–100; BMI 36.1
--- NOTE | 2022-06-12 16:32 | XR_ITS ---
PROCEDURE INFORMATION: Exam: XR Left Hand Exam date and time: 06/12/2022 4:58 PM Age: 62 years old Clinical indication: Pain; Finger(s); Left; Additional info: Finger swelling/pain TECHNIQUE: Imaging protocol: Radiologic exam of the Left hand. Views: 3 or more views. COMPARISON: No relevant prior studies available. FINDINGS: Bones/joints: Comminuted minimally displaced fractures off the distal aspect of the ring finger consistent with tuft fracture.. Degenerative changes in the radiocarpal joint Soft tissues: Soft tissue swelling of the distal aspect of the ring finger IMPRESSION: Comminuted minimally displaced fractures off the distal aspect of the ring finger consistent with tuft fracture..
[2022-06-12 17:02] LABS: Basophils # 0.1 K/mm3 (0-0.2); Basophils % 0.5 % (0.1-2.0); Eosinophils # 0.4 K/mm3 (0.0-0.4); Eosinophils % 3.1 % (0.1-12.0); Hematocrit 29.4 % (42.0-52.0); Lymphocytes # 2.1 K/mm3 (0.7-4.5); Lymphocytes % 18.8 % (10-50); Mean Corpuscular HGB Conc 33.8 g/dL (31.8-35.4); Mean Corpuscular Hemoglobin 33.9 pg (27.0-31.2); Mean Corpuscular Volume 100.2 fl (80-94); Mean Platelet Volume 8.2 fl (7.4-10.4); Monocytes # 0.8 K/mm3 (0.1-1.0); Monocytes % 7.1 % (1.7-9.3); Neutrophils % 70.4 % (37.0-80.0); Platelet Count 213 K/mm3 (142-424); Red Blood Count 2.94 M/mm3 (4.60-6.20); Red Cell Distribution Width 14.3 % (11.5-17.5); White Blood Count 11.4 K/mm3 (4.8-10.8)
--- NOTE | 2022-06-12 17:03 | HMH.EDGENADL ---
Discharge Plan Disposition Patient Disposition: Xfer Short-Term Hosp Condition: Good Prescriptions Prescriptions: No Action citalopram 20 mg tablet 20 mg PO DAILY hydrochlorothiazide 25 mg tablet 25 mg PO DAILY Qty: 90 3RF atorvastatin 80 mg tablet 80 mg PO HS Qty: 90 3RF aspirin 81 mg tablet,delayed release (DR/EC) 81 mg PO DAILY Qty: 90 3RF diltiazem HCl 120 mg capsule,extended release 24hr 120 mg PO DAILY Qty: 30 2RF insulin asp prt-insulin aspart [Novolog Mix 70-30FlexPen U-100] 100 unit/mL (70-30) insulin pen See Rx Instructions .ROUTE .COMPLEX Qty: 15 6RF Dose Instruction: inject 30 units SUBCUTANEOUSLY IN THE MORNING (BEFORE breakfast) and inject 40 units SUBCUTANEOUSLY IN THE EVENING (BEFORE SUPPER) Rx Instructions: inject 30 units SUBCUTANEOUSLY IN THE MORNING (BEFORE breakfast) and inject 40 units SUBCUTANEOUSLY IN THE EVENING (BEFORE SUPPER) isosorbide mononitrate 120 MG tablet extended release 24 hr 120 mg PO DAILY pantoprazole 40 MG tablet,delayed release (DR/EC) 40 mg PO DAILY ranolazine 1,000 MG tablet extended release 12 hr 1,000 mg PO BID insulin asp prt-insulin aspart 100 unit/mL (70-30) insulin pen 40 unit SQ 1800 carvedilol 12.5 MG tablet 12.5 mg PO BID lisinopril 5 MG tablet 5 mg PO DAILY icosapent ethyl 1 GM capsule 1 gm PO BID fluticasone furoate-vilanterol 1 EACH blister with device 1 puff IH DAILY ticagrelor 90 MG tablet 90 mg PO BID spironolactone 25 MG tablet 25 mg PO DAILY 30 Days Qty: 30 0RF acetaminophen 500 MG tablet 1,000 mg PO Q6HP PRN (Reason: PAIN/FEVER) Label Comments: TAKE TWO TABLETS BY MOUTH EVERY 6 HOURS NEEDED FOR PAIN amitriptyline 10 mg tablet 10 mg PO DAILY Referrals Follow up/Referrals: Junior Alas MD [Primary Care Provider] - See instructions Clinical Impressions Clinical Impression: Abscess of finger of left hand, Suppurative tenosynovitis of flexor tendon Discharge ED Provider: Lu Baker General Adult HPI General Chief complaint: Wound/Laceration Stated complaint: infected finger Time Seen by Provider: 06/12/22 16:22 Mode of Arrival: EMS Source of Information: Patient Limitations: Physical Limitations Description of Symptoms (Recalled from ER Triage Doc. 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 He reports that this started approximately 3 to 4 days ago. He denies any traumatic injuries or any known preceding wounds. He also denies any fevers, chills, or systemic symptoms. He states that he has pain with any extension of his digit. No other concerns noted at this time. Related Data Home Medications Medication Instructions Recorded Confirmed acetaminophen 500 mg tablet 1,000 mg PO Q6HP PRN PAIN/FEVER 04/29/19 12/26/21 amitriptyline 10 mg tablet 10 mg PO DAILY MOOD 04/18/20 12/26/21 citalopram 20 mg tablet 20 mg PO DAILY MOOD 04/18/20 12/26/21 isosorbide mononitrate 120 mg 120 mg PO DAILY Hypertension 08/30/20 12/26/21 tablet,extended release 24 hr pantoprazole 40 mg tablet,delayed 40 mg PO DAILY GERD 08/30/20 12/26/21 release ranolazine 1,000 mg 1,000 mg PO BID ANGINA 08/30/20 12/26/21 tablet,extended release,12 hr carvedilol 12.5 mg tablet 12.5 mg PO BID Hypertension 11/02/20 12/26/21 insulin aspar prot-insulin aspart 40 unit SQ 1800 Diabetes 02/23/21 12/26/21 100 unit/mL (70-30) subcutaneous pen fluticasone furoate 100 1 puff inhalation DAILY Breathing 12/17/21 12/26/21 mcg-vilant
[2022-06-12 17:09] LABS: Chloride 98 mmol/L (98-107); Potassium 4.7 mmoL/L (3.5-5.1); Sodium 132 mmol/L (136-145)
[2022-06-12 17:11] LABS: Blood Urea Nitrogen 18 mg/dl (9-20)
[2022-06-12 17:12] LABS: Alanine Aminotransferase 22 U/L (12-78); Albumin Level 3.5 g/dl (3.5-5.0); Albumin/Globulin Ratio 0.9 (1.1-1.8); Alkaline Phosphatase 89 U/L (38-126); Anion Gap 13.7 mEq/L (5-15); Aspartate Amino Transferase 40 U/L (17-59); Bilirubin,Total 1.2 mg/dl (0.2-1.3); Calcium 8.6 mg/dl (8.4-10.2); Carbon Dioxide 25 mmol/L (22.0-30.0); Creatinine Clearance Estimated 89 mL/min (50-200); Estimated Glomerular Filt Rate 61 ml/min (>60); GFR (African American) 74 ML/MIN (>60); Globulin 3.8 g/dL (1.3-3.2); Glucose 67 mg/dl (74-100); Total Protein,Serum 7.3 g/dl (6.3-8.2)
[2022-06-12 17:18] LABS: C-Reactive Protein 8.9 mg/L (0-4)
[2022-06-12 17:34] LABS: Erythrocyte Sedimentation Rate > 140 mm/hr (0-20)
--- NOTE | 2022-06-12 17:34 | PC.NURSE ---
calling [facility] for consult
[2022-06-12 20:24] LABS: Coronavirus 19, PCR Not Detected (NotDetected); Influenza A, PCR Not Detected (NotDetected); Influenza B, PCR Not Detected (NotDetected)
== END 2022-06-12 20:51 | disposition short-term general hospital (02) ==
PROVIDERS: Emergency Provider Emergency Medicine; PCP Emergency Medicine
DX: M65.142 Other infective (teno)synovitis, left hand (principal); L02.512 Cutaneous abscess of left hand
CPT/HCPCS: 73130; 80053; 85025; 85651; 86140; 96365; 96366; 96375; 99285; C9803; J0696; U0003; U0005

== ENCOUNTER 2022-07-05 11:22 | Emergency (ER) | payer MEDICARE, OTHER, SELFPAY ==
[2022-07-05] VITALS (9 sets, daily range): BP systolic 97–126; BP diastolic 58–66; PULSE 63–78; RESP 18–20; TEMP 36.7–36.8; O2SAT 95–99; BMI 35.5
--- NOTE | 2022-07-05 11:50 | HMH.EDGENADL ---
Discharge Plan Disposition Patient Disposition: Home, Self-Care Condition: Good Prescriptions Prescriptions: New vancomycin 125 mg capsule 125 mg PO QID Qty: 40 0RF doxycycline hyclate [Vibramycin] 100 mg capsule 100 mg PO BID Qty: 20 0RF No Action citalopram 20 mg tablet 20 mg PO DAILY hydrochlorothiazide 25 mg tablet 25 mg PO DAILY Qty: 90 3RF atorvastatin 80 mg tablet 80 mg PO HS Qty: 90 3RF aspirin 81 mg tablet,delayed release (DR/EC) 81 mg PO DAILY Qty: 90 3RF diltiazem HCl 120 mg capsule,extended release 24hr 120 mg PO DAILY Qty: 30 2RF insulin asp prt-insulin aspart [Novolog Mix 70-30FlexPen U-100] 100 unit/mL (70-30) insulin pen See Rx Instructions .ROUTE .COMPLEX Qty: 15 6RF Dose Instruction: inject 30 units SUBCUTANEOUSLY IN THE MORNING (BEFORE breakfast) and inject 40 units SUBCUTANEOUSLY IN THE EVENING (BEFORE SUPPER) Rx Instructions: inject 30 units SUBCUTANEOUSLY IN THE MORNING (BEFORE breakfast) and inject 40 units SUBCUTANEOUSLY IN THE EVENING (BEFORE SUPPER) spironolactone 25 mg tablet See Rx Instructions .ROUTE .COMPLEX Qty: 30 5RF Dose Instruction: TAKE ONE TABLET BY MOUTH EVERY DAY Rx Instructions: TAKE ONE TABLET BY MOUTH EVERY DAY isosorbide mononitrate 120 MG tablet extended release 24 hr 120 mg PO DAILY pantoprazole 40 MG tablet,delayed release (DR/EC) 40 mg PO DAILY ranolazine 1,000 MG tablet extended release 12 hr 1,000 mg PO BID insulin asp prt-insulin aspart 100 unit/mL (70-30) insulin pen 40 unit SQ 1800 carvedilol 12.5 MG tablet 12.5 mg PO BID lisinopril 5 MG tablet 5 mg PO DAILY icosapent ethyl 1 GM capsule 1 gm PO BID fluticasone furoate-vilanterol 1 EACH blister with device 1 puff IH DAILY ticagrelor 90 MG tablet 90 mg PO BID acetaminophen 500 MG tablet 1,000 mg PO Q6HP PRN (Reason: PAIN/FEVER) Label Comments: TAKE TWO TABLETS BY MOUTH EVERY 6 HOURS NEEDED FOR PAIN amitriptyline 10 mg tablet 10 mg PO DAILY Referrals Follow up/Referrals: Provider,Referral, MD [Primary Care Provider] - See instructions Activity Restrictions/Add. Instructions Additional Instructions/Restrictions: Call [facility] in 2 to 4 hours to get results of diarrhea panel. Vancomycin as prescribed for the possibility of C. difficile. May discontinue this medication if diarrhea panel does not show C. difficile. Doxycycline as prescribed for left hand infection. Follow-up with [facility] hand surgery for continued treatment of the left hand infection: should follow-up with Dr. Ta Barrios at [address] [address]. Please call [phone] to reschedule appointment. You had an appointment scheduled there on 07/03/2022, but did not show according to [facility] records. Clinical Impressions Clinical Impression: Diarrhea, Fall, Finger infection Instructions Patient Instructions: DI for Diarrhea and Traveler's Diarrhea -- Adult, How to Prevent Falls Discharge ED Provider: Armando Burgess General Adult HPI General Chief complaint: Nausea/Vomiting/Diarrhea Stated complaint: fall Time Seen by Provider: 07/05/22 11:44 History of Present Illness HPI narrative: The patient is brought in by ambulance from [facility] [place]. Patient tells me that he has had diarrhea for couple of days. States that he was on the way to the bathroom when he fell into the door striking his head. Denies loss of consciousness. Denies neck pain. Denies injury to any other part of his body. Denies any blood in his diarrhea, denies abdominal pain or fever. States he had 1 episode of vomiting today. Also wants to know if there is somebody who can straighten his left ring finger. Says that it has been been for a long time. He says he has an appointment at another hospital to get it taken care of but wanted
--- NOTE | 2022-07-05 11:54 | CT_ITS ---
FINAL REPORT TECHNIQUE: Axial CT images were performed through the head. Coronal reformatted images were submitted. This study was performed with techniques to keep radiation doses as low as reasonably achievable (ALARA). Individualized dose reduction techniques using automated exposure control or adjustment of mA and/or kV according to the patient's size were employed. CLINICAL HISTORY: fall, hit head COMPARISON: 05/29/2022 FINDINGS: There is mild atrophy and mild changes of chronic small vessel ischemia. The ventricles are normal in size. There is no evidence of hemorrhage. There is no mass or edema identified. There is no abnormal extra-axial fluid seen. There is complete opacification of the right mastoid air cells and partial opacification of the right middle ear cavity. There is no acute osseous abnormality. IMPRESSION: No acute intracranial process. Right mastoiditis and otitis media. Reviewed, Interpreted and Dictated by Rashi Cordero MD Transcribed by Sonal Lew Authenticated and [facility]
--- NOTE | 2022-07-05 11:54 | CT_ITS ---
FINAL REPORT TECHNIQUE: Axial images were obtained from skull base to the thoracic inlet by computed tomography. Coronal and sagittal reconstruction process performed. This study was performed with techniques to keep radiation doses as low as reasonably achievable (ALARA). Individualized dose reduction techniques using automated exposure control or adjustment of mA and/or kV according to the patient''s size were employed. CLINICAL HISTORY: fall, hit head COMPARISON: 05/29/2022 FINDINGS: There is no acute fracture or subluxation. There is advanced disc space narrowing with anterior osteophyte formation at multiple levels. There is endplate hypertrophy. Mild left neural foraminal narrowing is seen at C2-3. There is a moderate diffuse disc bulge and endplate hypertrophy at C5-6 with moderate central canal stenosis and moderate bilateral neural foraminal narrowing. IMPRESSION: No acute fracture. Degenerative changes with moderate central canal stenosis and neural foraminal narrowing at C5-6. Reviewed, Interpreted and Dictated by Rashi Cordero MD Transcribed by Sonal Lew Authenticated and [facility]
[2022-07-05 12:34] LABS: Basophils % 0.3 % (0.1-2.0); Eosinophils % 0.6 % (0.1-12.0); Hematocrit 29.3 % (42.0-52.0); Hemoglobin 10.1 g/dL (14.1-18.0); Lymphocytes % 17.2 % (10-50); Mean Corpuscular HGB Conc 34.5 g/dL (31.8-35.4); Mean Corpuscular Hemoglobin 34.7 pg (27.0-31.2); Mean Corpuscular Volume 100.7 fl (80-94); Mean Platelet Volume 9.3 fl (7.4-10.4); Monocytes # 0.7 K/mm3 (0.1-1.0); Neutrophils # 4.1 K/mm3 (1.8-7.8); Platelet Count 170 K/mm3 (142-424); Red Blood Count 2.91 M/mm3 (4.60-6.20); Red Cell Distribution Width 14.4 % (11.5-17.5); White Blood Count 5.9 K/mm3 (4.8-10.8)
[2022-07-05 12:46] LABS: Alanine Aminotransferase 51 U/L (12-78); Albumin Level 3.3 g/dl (3.5-5.0); Alkaline Phosphatase 81 U/L (38-126); Anion Gap 11.5 mEq/L (5-15); Aspartate Amino Transferase 87 U/L (17-59); Blood Urea Nitrogen 19 mg/dl (9-20); Calcium 8.4 mg/dl (8.4-10.2); Carbon Dioxide 24 mmol/L (22.0-30.0); Chloride 99 mmol/L (98-107); Creatinine Clearance Estimated 105 mL/min (50-200); Estimated Glomerular Filt Rate 75 ml/min (>60); GFR (African American) 91 ML/MIN (>60); Globulin 3.2 g/dL (1.3-3.2); Glucose 129 mg/dl (74-100); Potassium 4.5 mmoL/L (3.5-5.1); Sodium 130 mmol/L (136-145); Total Protein,Serum 6.5 g/dl (6.3-8.2)
[2022-07-05 13:54] LABS: Adenovirus F 40/41, stool Not Detected (NotDetected); Astrovirus Not Detected (NotDetected); Campylobacter Not Detected (NotDetected); Clostridium Difficile A/B, PCR Not Detected (NotDetected); Cryptosporidium Not Detected (NotDetected); Cyclospora Cayetanesis Not Detected (NotDetected); Entamoeba histolytica Not Detected (NotDetected); Enteroaggregative E coli Not Detected (NotDetected); Enteropathogenic E coli Not Detected (NotDetected); Enterotoxigenic E coli Not Detected (NotDetected); Giardia lamblia Not Detected (NotDetected); Norovirus Not Detected (NotDetected); Plesimonas Shigalloides, PCR Not Detected (NotDetected); Rotavirus A Not Detected (NotDetected); Salmonella, PCR Not Detected (NotDetected); Sapovirus Not Detected (NotDetected); Shiga-like toxin E coli Not Detected (NotDetected); Shigella Enterovasive E coli Not Detected (NotDetected); Vibrio Cholerae Not Detected (NotDetected); Vibrio, PCR Not Detected (NotDetected); Yersinia Entercolitica, PCR Not Detected (NotDetected)
== END 2022-07-05 15:53 | disposition home or self-care (01) ==
PROVIDERS: Emergency Provider Emergency Medicine
DX: L08.9 Local infection of the skin and subcutaneous tissue, unspecified (principal); R19.7 Diarrhea, unspecified; I25.10 Atherosclerotic heart disease of native coronary artery without angina pectoris; E11.9 Type 2 diabetes mellitus without complications; I11.9 Hypertensive heart disease without heart failure; N19 Unspecified kidney failure; W01.10XA Fall on same level from slipping, tripping and stumbling with subsequent striking against unspecified object, initial encounter; Z86.79 Personal history of other diseases of the circulatory system; Z89.429 Acquired absence of other toe(s), unspecified side
CPT/HCPCS: 70450; 72125; 80053; 85025; 87506; 96360; 99285

== ENCOUNTER 2022-07-27 08:29 | Emergency (ER) | payer MEDICARE, OTHER, SELFPAY ==
[2022-07-27 08:29] VITALS: BP 137/72; PULSE 74; RESP 16; TEMP 36.4; O2SAT 100; BMI 43.5
--- NOTE | 2022-07-27 08:38 | PC.NURSE ---
DR MASON AT BEDSIDE
[2022-07-27 08:39] VITALS: PULSE 71; O2SAT 100
--- NOTE | 2022-07-27 08:43 | HMH.EDGENADL ---
Discharge Plan Disposition Patient Disposition: Xfer Short-Term Hosp Condition: Fair Prescriptions Prescriptions: No Action citalopram 20 mg tablet 20 mg PO DAILY hydrochlorothiazide 25 mg tablet 25 mg PO DAILY Qty: 90 3RF atorvastatin 80 mg tablet 80 mg PO HS Qty: 90 3RF aspirin 81 mg tablet,delayed release (DR/EC) 81 mg PO DAILY Qty: 90 3RF diltiazem HCl 120 mg capsule,extended release 24hr 120 mg PO DAILY Qty: 30 2RF isosorbide mononitrate 120 MG tablet extended release 24 hr 120 mg PO DAILY pantoprazole 40 MG tablet,delayed release (DR/EC) 40 mg PO DAILY ranolazine 1,000 MG tablet extended release 12 hr 1,000 mg PO BID insulin asp prt-insulin aspart 100 unit/mL (70-30) insulin pen 40 unit SQ 1800 carvedilol 12.5 MG tablet 12.5 mg PO BID lisinopril 5 MG tablet 5 mg PO DAILY icosapent ethyl 1 GM capsule 1 gm PO BID fluticasone furoate-vilanterol 1 EACH blister with device 1 puff IH DAILY ticagrelor 90 MG tablet 90 mg PO BID spironolactone 25 mg tablet See Rx Instructions .ROUTE .COMPLEX Rx Instructions: TAKE ONE TABLET BY MOUTH EVERY DAY insulin asp prt-insulin aspart [Novolog Mix 70-30FlexPen U-100] 100 unit/mL (70-30) insulin pen See Rx Instructions .ROUTE .COMPLEX Rx Instructions: inject 30 units SUBCUTANEOUSLY IN THE MORNING (BEFORE breakfast) and inject 40 units SUBCUTANEOUSLY IN THE EVENING (BEFORE SUPPER) acetaminophen 500 MG tablet 1,000 mg PO Q6HP PRN (Reason: PAIN/FEVER) Label Comments: TAKE TWO TABLETS BY MOUTH EVERY 6 HOURS NEEDED FOR PAIN amitriptyline 10 mg tablet 10 mg PO DAILY vancomycin 125 mg capsule 125 mg PO QID Qty: 40 0RF doxycycline hyclate [Vibramycin] 100 mg capsule 100 mg PO BID Qty: 20 0RF Clinical Impressions Clinical Impression: Epidural hematoma, Acute subdural hematoma Stand Alone Forms Stand Alone Forms: Transfer Record - ED Discharge ED Provider: Armando Burgess General Adult HPI General Chief complaint: Fall Stated complaint: Fall Time Seen by Provider: 07/27/22 08:37 Mode of Arrival: EMS Limitations: No Limitations Description of Symptoms (Recalled from ER Triage Doc. by RN): PT SENT FROM [facility] FOR RECURRENT FALLS. EMS REPORTS FALL THIS AM AND PT STATES HE HIT HIS HEAD. NO OBVIOUS INJURY, DENIES LOC. PT AT BASELINE MENTATION. PT ON [place] History of Present Illness HPI narrative: The patient is brought in by ambulance from [facility]. Staff reports recurrent falls, patient states he fell last night and hit his head and complains of left sided headache. Denies other injuries or pain. Patient, however, is a poor historian. Staff reports that he appears to be at his baseline mental status. I saw him in this emergency department about 1 month ago and he seems a little more confused now, although certainly was not a good historian then either. He does not know whether he has been ill recently. Some of his answers make no sense, he answers other questions appropriately. Review of his medications indicates he is on low-dose aspirin and brilinta. Related Data Home Medications Medication Instructions Recorded Confirmed acetaminophen 500 mg tablet 1,000 mg PO Q6HP PRN PAIN/FEVER 04/29/19 07/27/22 amitriptyline 10 mg tablet 10 mg PO DAILY MOOD 04/18/20 07/27/22 citalopram 20 mg tablet 20 mg PO DAILY MOOD 04/18/20 07/27/22 isosorbide mononitrate 120 mg 120 mg PO DAILY Hypertension 08/30/20 07/27/22 tablet,extended release 24 hr pantoprazole 40 mg tablet,delayed 40 mg PO DAILY GERD 08/30/20 07/27/22 release ranolazine 1,000 mg 1,000 mg PO BID ANGINA 08/30/20 07/27/22 tablet,extended release,12 hr carvedilol 12.5 mg tablet 12.5 mg PO BID Hypertension 11/02/20 07/27/22 insulin aspar prot-insulin aspart 40 unit SQ 1800 Diabetes 02/23/21 07/27/22 100 unit/mL (70-30) subcutaneous pen fluticasone furoate
--- NOTE | 2022-07-27 08:44 | XR_ITS ---
FINAL REPORT CLINICAL HISTORY: Pt fell SURVEY ASSOCIATE FINDINGS: Pelvis A single view was obtained. There is no acute fracture or dislocation. There is degenerative disease of the hips bilaterally. No soft tissue abnormality is identified. IMPRESSION: No acute process. Reviewed, Interpreted and Dictated by Flower Sutton MD Transcribed by Maya Hopper Authenticated and [facility]
--- NOTE | 2022-07-27 08:44 | XR_ITS ---
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 There is no prior exam for comparison. The cardiac and mediastinal silhouettes are within normal limits. The lungs are clear. There is no effusion or pneumothorax. No acute osseous abnormality is identified. IMPRESSION: No radiographic evidence of acute cardiac or pulmonary disease on this single view of the chest. Reviewed, Interpreted and Dictated by Flower Sutton MD Transcribed by Maya Hopper Authenticated and . [facility]
--- NOTE | 2022-07-27 08:44 | CT_ITS ---
FINAL REPORT TECHNIQUE: Thin section axial images were obtained from skull base to vertex without contrast. Coronal reconstruction images were obtained from the axial data. Exam was performed using dose reduction technique. 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 There is a new, extra-axial hemorrhage along the left frontoparietal lobe measuring 5.6 x 2.4 cm which likely has both an epidural and subdural component. There is a left parafalcine subdural hemorrhage measuring up to 5 mm. Hemorrhage layers along the left tentorium. There is 2-3 mm of left to right midline shift. The posterior fossa is without acute abnormality. The basilar cisterns are preserved. There is complete opacification of the right mastoid air cells and partial opacification of the left ethmoid air cells. No skull fracture is identified. IMPRESSION: New, extra-axial hemorrhage likely with both epidural and subdural components along the left frontoparietal cortex. Parafalcine subdural hemorrhage common new. Mild left to right midline shift. Génesis Sung, nurse in the ER was notified of findings on 07/27/2022 at 10:19 a.m. Reviewed, Interpreted and Dictated by Flower Sutton MD Transcribed by Maya Hopper Authenticated and [facility]
--- NOTE | 2022-07-27 08:44 | CT_ITS ---
FINAL REPORT TECHNIQUE: Thin section axial images were obtained through the cervical spine without contrast. Multiplanar reconstruction images were obtained from the axial data. Exam was performed using dose reduction techniques. CLINICAL HISTORY: Pt fell EQUIPMENT LEAD COMPARISON: 07/05/2022 FINDINGS: There is no acute fracture or acute malalignment of the cervical spine. There is fusion of the C2-3 vertebral bodies, likely congenital. There is no evidence of unilateral or bilateral facet lock. Vertebral body height is preserved. There is multilevel degenerative disc disease, unchanged from prior. No acute paraspinal abnormality is identified. IMPRESSION: No acute osseous abnormality of the cervical spine. Multilevel degenerative disc disease. Reviewed, Interpreted and Dictated by Flower Sutton MD Transcribed by Maya Hopper Authenticated and [facility]
[2022-07-27 09:01] VITALS: BP 106/58; PULSE 63; O2SAT 96
[2022-07-27 09:01] LABS: Basophils % 0.3 % (0.1-2.0); Eosinophils # 0.1 K/mm3 (0.0-0.4); Hemoglobin 10.9 g/dL (14.1-18.0); Lymphocytes # 1.5 K/mm3 (0.7-4.5); Lymphocytes % 11.6 % (10-50); Mean Corpuscular HGB Conc 35.2 g/dL (31.8-35.4); Mean Corpuscular Hemoglobin 33.7 pg (27.0-31.2); Mean Corpuscular Volume 95.9 fl (80-94); Monocytes # 0.9 K/mm3 (0.1-1.0); Monocytes % 6.6 % (1.7-9.3); Neutrophils # 10.4 K/mm3 (1.8-7.8); Neutrophils % 80.7 % (37.0-80.0); Platelet Count 490 K/mm3 (142-424); Red Blood Count 3.23 M/mm3 (4.60-6.20); Red Cell Distribution Width 13.9 % (11.5-17.5)
[2022-07-27 09:07] LABS: Alanine Aminotransferase 32 U/L (12-78); Albumin Level 3.6 g/dl (3.5-5.0); Albumin/Globulin Ratio 0.8 (1.1-1.8); Alkaline Phosphatase 191 U/L (38-126); Anion Gap 12.5 mEq/L (5-15); Aspartate Amino Transferase 47 U/L (17-59); Bilirubin,Total 1.2 mg/dl (0.2-1.3); Blood Urea Nitrogen 20 mg/dl (9-20); Calcium 8.8 mg/dl (8.4-10.2); Carbon Dioxide 22 mmol/L (22.0-30.0); Chloride 96 mmol/L (98-107); Creatinine Clearance Estimated 61 mL/min (50-200); Estimated Glomerular Filt Rate 67 ml/min (>60); GFR (African American) 82 ML/MIN (>60); Globulin 4.6 g/dL (1.3-3.2); Glucose 144 mg/dl (74-100); Potassium 4.5 mmoL/L (3.5-5.1); Sodium 126 mmol/L (136-145); Total Protein,Serum 8.2 g/dl (6.3-8.2)
--- NOTE | 2022-07-27 09:09 | ECG_ITS ---
APPROVED REPORT Exam: Resting ECG HR:62 bpm ECG Measurements Heart Rate 62 AXES AZ 165 P 12 QRSd 94 QRS 25 QT 433 T 52 QTc 438 Conclusion SINUS RHYTHM NORMAL ECG UNCONFIRMED REPORT Electronically signed by : Yonis Aceves MD 07/27/2022 15:50:48
--- NOTE | 2022-07-27 09:13 | PC.NURSE ---
PT TO CT
[2022-07-27 09:19] LABS: Troponin I < 0.01 ng/ml (0.00-0.034)
[2022-07-27 09:34] VITALS: PULSE 70; O2SAT 100
--- NOTE | 2022-07-27 09:34 | PC.NURSE ---
PT RETURNED FROM CT/XR
--- NOTE | 2022-07-27 09:36 | PC.NURSE ---
RADIOLGY NOTIFIED TO POWERSHARE ALL IMAGES WITH [facility]
--- NOTE | 2022-07-27 09:59 | PC.NURSE ---
confirmed with neurodiagnostic technologist per ER MD request that pt scans were sent as stat, she states yes they were and when she just looked they were on the waiting for interpretation list.
[2022-07-27 10:00] VITALS: BP 119/68; PULSE 64; O2SAT 99
--- NOTE | 2022-07-27 10:04 | PC.NURSE ---
DR MASON AT BEDSIDE TO UPDATE PT
--- NOTE | 2022-07-27 10:19 | PC.NURSE ---
DR MASON NOTIFIED OF CT REPORT
--- NOTE | 2022-07-27 10:36 | PC.NURSE ---
ROUNDED ON PT AT THIS TIME, NO NEEDS VOICED
--- NOTE | 2022-07-27 10:41 | PC.NURSE ---
waiting correctional substance abuse counselor back from [facility] r/t transfer
--- NOTE | 2022-07-27 11:08 | PC.NURSE ---
CHARU LINARES speaking with [facility]
--- NOTE | 2022-07-27 11:11 | PC.NURSE ---
pt accepted to ER per dr. muniz
--- NOTE | 2022-07-27 11:14 | PC.NURSE ---
per ER MD pt can be transferred via BLS crew. contacted [facility] and notified them of transport of pt
[2022-07-27 11:27] VITALS: BP 116/66; PULSE 68; RESP 17; TEMP 36.4; O2SAT 100
--- NOTE | 2022-07-27 11:27 | PC.NURSE ---
1115 REPORT CALLED TO ALINA KING AT ED
== END 2022-07-27 11:45 | disposition short-term general hospital (02) ==
PROVIDERS: Emergency Provider Emergency Medicine; PCP Emergency Medicine
DX: S06.4X0A Epidural hemorrhage without loss of consciousness, initial encounter (principal); S06.5X0A Traumatic subdural hemorrhage without loss of consciousness, initial encounter; R29.6 Repeated falls; W19.XXXA Unspecified fall, initial encounter; Z86.79 Personal history of other diseases of the circulatory system; I25.10 Atherosclerotic heart disease of native coronary artery without angina pectoris; E11.9 Type 2 diabetes mellitus without complications; R06.00 Dyspnea, unspecified; R53.83 Other fatigue; I11.0 Hypertensive heart disease with heart failure; E66.9 Obesity, unspecified; I20.0 Unstable angina; N19 Unspecified kidney failure; Z89.422 Acquired absence of other left toe(s)
CPT/HCPCS: 70450; 71045; 72125; 72170; 80053; 84484; 85025; 93005; 99285

== ENCOUNTER 2022-08-25 20:33 | Emergency (ER) | payer MEDICARE, OTHER, SELFPAY ==
[2022-08-25] VITALS (8 sets, daily range): BP systolic 132–153; BP diastolic 57–71; PULSE 65–75; RESP 17–20; TEMP 36.8; O2SAT 97–100; BMI 36.1
--- NOTE | 2022-08-25 21:21 | XR_ITS ---
PROCEDURE INFORMATION: Exam: XR Chest Exam date and time: 08/25/2022 9:59 PM Age: 62 years old Clinical indication: Cough TECHNIQUE: Imaging protocol: Radiologic exam of the chest. Views: 1 view. COMPARISON: CR XR CHEST AP 07/27/2022 9:37 AM FINDINGS: Lungs: Consolidative opacity in the left lung base compatible with subsegmental atelectasis vs infiltrate. Subsegmental atelectasis/scarring in the lingula, unchanged. No appreciable pulmonary edema. Pleural spaces: No large pleural effusion. No pneumothorax. Heart/Mediastinum: Cardiomediastinal silhouette is unchanged. Bones/joints: No evidence of acute osseous abnormality. IMPRESSION: Consolidative opacity in the left lung base compatible with subsegmental atelectasis vs infiltrate.
[2022-08-25 21:33] LABS: Basophils % 0.3 % (0.1-2.0); Eosinophils # 0.4 K/mm3 (0.0-0.4); Eosinophils % 3.6 % (0.1-12.0); Hematocrit 31.8 % (42.0-52.0); Lymphocytes # 1.8 K/mm3 (0.7-4.5); Lymphocytes % 15.4 % (10-50); Mean Corpuscular HGB Conc 31.6 g/dL (31.8-35.4); Mean Corpuscular Hemoglobin 31.2 pg (27.0-31.2); Mean Corpuscular Volume 98.9 fl (80-94); Mean Platelet Volume 7.3 fl (7.4-10.4); Monocytes # 0.8 K/mm3 (0.1-1.0); Monocytes % 6.5 % (1.7-9.3); Neutrophils # 8.8 K/mm3 (1.8-7.8); Neutrophils % 74.2 % (37.0-80.0); Platelet Count 503 K/mm3 (142-424); Red Blood Count 3.22 M/mm3 (4.60-6.20); Red Cell Distribution Width 15.5 % (11.5-17.5); White Blood Count 11.9 K/mm3 (4.8-10.8)
[2022-08-25 21:35] LABS: Alanine Aminotransferase 26 U/L (12-78); Albumin Level 3.7 g/dl (3.5-5.0); Albumin/Globulin Ratio 0.8 (1.1-1.8); Alkaline Phosphatase 127 U/L (38-126); Anion Gap 14.5 mEq/L (5-15); Aspartate Amino Transferase 36 U/L (17-59); Bilirubin,Total 0.8 mg/dl (0.2-1.3); Blood Urea Nitrogen 12 mg/dl (9-20); Calcium 8.7 mg/dl (8.4-10.2); Carbon Dioxide 24 mmol/L (22.0-30.0); Chloride 95 mmol/L (98-107); Creatinine Clearance Estimated 107 mL/min (50-200); Estimated Glomerular Filt Rate 97 ml/min (>60); GFR (African American) 118 ML/MIN (>60); Globulin 4.7 g/dL (1.3-3.2); Glucose 177 mg/dl (74-100); Potassium 3.5 mmoL/L (3.5-5.1); Sodium 130 mmol/L (136-145); Total Protein,Serum 8.4 g/dl (6.3-8.2)
[2022-08-25 21:40] LABS: C-Reactive Protein 29.2 mg/L (0-4)
--- NOTE | 2022-08-25 21:51 | HMH.EDGENADL ---
Discharge Plan Disposition Patient Disposition: Home, Self-Care Prescriptions Prescriptions: No Action citalopram 20 mg tablet 20 mg PO DAILY atorvastatin 80 mg tablet 80 mg PO HS Qty: 90 3RF aspirin 81 mg tablet,delayed release (DR/EC) 81 mg PO DAILY Qty: 90 3RF diltiazem HCl 120 mg capsule,extended release 24hr 120 mg PO DAILY Qty: 30 2RF pantoprazole 40 MG tablet,delayed release (DR/EC) 40 mg PO DAILY ranolazine 1,000 MG tablet extended release 12 hr 1,000 mg PO BID carvedilol 12.5 MG tablet 12.5 mg PO BID fluticasone furoate-vilanterol 1 EACH blister with device 1 puff IH DAILY ticagrelor 90 MG tablet 90 mg PO BID insulin asp prt-insulin aspart [Novolog Mix 70-30FlexPen U-100] 100 unit/mL (70-30) insulin pen See Rx Instructions .ROUTE .COMPLEX Rx Instructions: inject 30 units SUBCUTANEOUSLY IN THE MORNING (BEFORE breakfast) and inject 40 units SUBCUTANEOUSLY IN THE EVENING (BEFORE SUPPER) acetaminophen 500 MG tablet 1,000 mg PO Q6HP PRN (Reason: PAIN/FEVER) Label Comments: TAKE TWO TABLETS BY MOUTH EVERY 6 HOURS NEEDED FOR PAIN albuterol sulfate 90 mcg/actuation Hfa Aerosol Inhaler 2 puff INHALATION QID PRN (Reason: SOA,wheeze) trolamine salicylate [Aspercreme] 10 % Cream 1 applic TOPICAL BID PRN (Reason: Pain) ferrous sulfate 324 mg (65 mg iron) Tablet,Delayed Release (Dr/Ec) 324 mg PO BID chlorthalidone 50 mg Tablet 50 mg PO DAILY famotidine 20 mg Tablet 20 mg PO DAILY Referrals Follow up/Referrals: Junior Alas MD [Primary Care Provider] - See instructions Clinical Impressions Clinical Impression: Hemoptysis, Elevated erythrocyte sedimentation rate, Hand deformities Instructions Patient Instructions: DI for Hemoptysis Discharge ED Provider: Bishop (ED)Junior General Adult HPI General Chief complaint: PAIN Stated complaint: Coughing up blood Time Seen by Provider: 08/25/22 21:15 Mode of Arrival: EMS Source of Information: Patient, EMS and Medical Record Limitations: Physical Limitations Description of Symptoms (Recalled from ER Triage Doc. by RN): Pt arrives from skilled care facility with concerns of coughing up blood . They discovered pt with a blood clot in tissue. States it only happened 1x. Pt recently back [facility] their [facility] d/t diabetes infection . Pt c/o headache from a fall sustained several weeks ago. Pt was seen at the ER after this fall occurred. Pt also c/o the scratches to bilateral arms that I did from being anxious , no open areas to the skin only healing scabs. Denies any SOA or cough at this time. History of Present Illness HPI narrative: recent admit at for subdural and then to [facility] and back to [facility] a couple of days ago had blood in sputum tonight Onset (ago): hour(s) Severity: moderate Related Data Home Medications Medication Instructions Recorded Confirmed acetaminophen 500 mg tablet 1,000 mg PO Q6HP PRN PAIN/FEVER 04/29/19 08/25/22 citalopram 20 mg tablet 20 mg PO DAILY MOOD 04/18/20 08/25/22 pantoprazole 40 mg tablet,delayed 40 mg PO DAILY GERD 08/30/20 08/25/22 release ranolazine 1,000 mg 1,000 mg PO BID ANGINA 08/30/20 08/25/22 tablet,extended release,12 hr carvedilol 12.5 mg tablet 12.5 mg PO BID Hypertension 11/02/20 08/25/22 fluticasone furoate 100 1 puff inhalation DAILY Breathing 12/17/21 08/25/22 mcg-vilanterol 25 mcg/dose problems inhalation powder ticagrelor 90 mg tablet 90 mg PO BID PLATELET INHIBITOR 12/18/21 08/25/22 insulin aspar prot-insulin aspart See Rx Instructions .Route 07/27/22 08/25/22 100 unit/mL (70-30) subcutaneous .COMPLEX Diabetes pen (Novolog Mix 70-30FlexPen U-100) albuterol sulfate 90 mcg/actuation 2 puff inhalation QID PRN 08/25/22 08/25/22 aerosol inhaler SOA,wheeze chlorthalidone 50 mg tablet 50 mg PO DAILY fluid & high blood 08/25/22 08/25/22 pressure
[2022-08-25 21:59] LABS: Erythrocyte Sedimentation Rate 134 mm/hr (0-20)
[2022-08-25 22:15] LABS: Microscopic, Urine URINE MICROSCOPIC (MICROSCOPIC)
[2022-08-25 22:20] LABS: Appearance,Urine CLOUDY (Clear); Blood, Urine 3+ (Negative); Color,Urine DK YELLOW (Yellow); Glucose,Urine (UA) Negative (Negative); Ketones,Urine Negative (Negative); Leukocyte Esterase,Urine 1+ (Negative); Nitrate,Urine POSITIVE (Negative); Protein,Urine 1+ (Negative)
[2022-08-25 22:47] LABS: Bacteria,Urine 2+ /lpf; Bilirubin,Urine 1+ (Negative); RBC,Urine 20-50 #/hpf (0-3); Squamous Epithelial Cell,Urine Occasional #/hpf (0-5); WBC,Urine Occasional #/hpf (0-3)
[2022-08-25 23:34] LABS: Lactic Acid 2.4 mmol/L (0.7-2.1)
[2022-08-26] VITALS (10 sets, daily range): BP systolic 133–168; BP diastolic 52–68; PULSE 59–70; RESP 16–19; TEMP 36.9; O2SAT 97–100
[2022-08-26 00:51] LABS: Acetone, Serum (Rapid) None Detected (None Detect)
--- NOTE | 2022-08-26 00:53 | CT_ITS ---
PROCEDURE INFORMATION: Exam: CT Chest Without Contrast; Diagnostic Exam date and time: 08/26/2022 1:05 AM Age: 62 years old Clinical indication: Other: Hemoptysis TECHNIQUE: Imaging protocol: Diagnostic computed tomography of the chest without contrast. Radiation optimization: All CT scans at this facility use at least one of these dose optimization techniques: automated exposure control; mA and/or kV adjustment per patient size (includes targeted exams where dose is matched to clinical indication); or iterative reconstruction. REPORTING DATA: Count of CT and Cardiac NM exams in prior 12 months: This patient has received 6 known CTs and 0 known cardiac nuclear medicine studies in the 12 months prior to the current study. COMPARISON: CR XR CHEST PORTABLE 08/25/2022 9:59 PM FINDINGS: Lungs: Subsegmental atelectasis/scarring in the lingula. No evidence of acute airspace consolidation or pulmonary mass. No appreciable pulmonary edema. Central airways are clear. Pleural spaces: No pleural effusion. No pneumothorax. Heart: No cardiomegaly. No pericardial effusion. Coronary arteries: Calcific coronary artery disease. Lymph nodes: Calcified lymph nodes, compatible with chronic sequelae of prior granulomatous disease. No pathologically enlarged lymph nodes by CT criteria. Vasculature: Aorta is normal in caliber. Bones/joints: Multi-level bridging disc osteophytes in the lower thoracic spine compatible with diffuse idiopathic skeletal hyperostosis (DISH). No evidence of acute osseous abnormality or suspicious bone lesions. Soft tissues: Gynecomastia. IMPRESSION: 1. No evidence of acute cardiopulmonary disease or other abnormality to explain hemoptysis. 2. Calcific coronary artery disease. 3. Diffuse idiopathic skeletal hyperostosis (DISH). 4. Gynecomastia.
--- NOTE | 2022-08-26 02:30 | PC.NURSE ---
Dr. Alas reports that he would like to have records from 's recent visit. Per Medical records, pt was seen there 07/27/22-08/02/22.
[2022-08-26 03:17] LABS: Reflex Lactic Add Lactic Reflex
--- NOTE | 2022-08-26 03:47 | PC.NURSE ---
Dr. Alas at bedside.
--- NOTE | 2022-08-26 04:07 | PC.NURSE ---
Called Rogelio Rueda, went to voicemail. I contacted [facility], they will reach out to Rogelio Rueda to call us back.
--- NOTE | 2022-08-26 04:14 | PC.NURSE ---
I did recheck with Dr. Alas that he would not like any abx for suspected UTI, he will wait for urine culture
--- NOTE | 2022-08-26 04:20 | PC.NURSE ---
Called Rogelio Rueda again, staff reports I would not be able to get him in my truck. I will call my test engineering manager .
== END 2022-08-26 06:08 | disposition home or self-care (01) ==
PROVIDERS: Emergency Provider Emergency Medicine; PCP Emergency Medicine
DX: R04.2 Hemoptysis (principal); R70.0 Elevated erythrocyte sedimentation rate
CPT/HCPCS: 71045; 71250; 80053; 81001; 82009; 83605; 84145; 85025; 85651; 86140; 87040; 87086; 87088; 87186; 96360; 99284; 99285

== ENCOUNTER 2022-08-27 16:05 | Emergency (ER) | payer MEDICARE, OTHER, SELFPAY ==
[2022-08-27] VITALS (7 sets, daily range): BP systolic 134–156; BP diastolic 53–70; PULSE 63–85; RESP 18–20; TEMP 36.4–36.6; O2SAT 98–100; BMI 36.1
--- NOTE | 2022-08-27 16:43 | HMH.EDGENADL ---
Discharge Plan Disposition Patient Disposition: Home, Self-Care Prescriptions Prescriptions: New cefdinir 300 mg capsule 300 mg PO BID 10 Days Qty: 20 0RF No Action citalopram 20 mg tablet 20 mg PO DAILY atorvastatin 80 mg tablet 80 mg PO HS Qty: 90 3RF aspirin 81 mg tablet,delayed release (DR/EC) 81 mg PO DAILY Qty: 90 3RF diltiazem HCl 120 mg capsule,extended release 24hr 120 mg PO DAILY Qty: 30 2RF pantoprazole 40 MG tablet,delayed release (DR/EC) 40 mg PO DAILY ranolazine 1,000 MG tablet extended release 12 hr 1,000 mg PO BID carvedilol 12.5 MG tablet 12.5 mg PO BID fluticasone furoate-vilanterol 1 EACH blister with device 1 puff IH DAILY ticagrelor 90 MG tablet 90 mg PO BID insulin asp prt-insulin aspart [Novolog Mix 70-30FlexPen U-100] 100 unit/mL (70-30) insulin pen See Rx Instructions .ROUTE .COMPLEX Rx Instructions: inject 30 units SUBCUTANEOUSLY IN THE MORNING (BEFORE breakfast) and inject 40 units SUBCUTANEOUSLY IN THE EVENING (BEFORE SUPPER) acetaminophen 500 MG tablet 1,000 mg PO Q6HP PRN (Reason: PAIN/FEVER) Label Comments: TAKE TWO TABLETS BY MOUTH EVERY 6 HOURS NEEDED FOR PAIN albuterol sulfate 90 mcg/actuation Hfa Aerosol Inhaler 2 puff INHALATION QID PRN (Reason: SOA,wheeze) trolamine salicylate [Aspercreme] 10 % Cream 1 applic TOPICAL BID PRN (Reason: Pain) ferrous sulfate 324 mg (65 mg iron) Tablet,Delayed Release (Dr/Ec) 324 mg PO BID chlorthalidone 50 mg Tablet 50 mg PO DAILY famotidine 20 mg Tablet 20 mg PO DAILY Referrals Follow up/Referrals: Junior Alas MD [Primary Care Provider] - See instructions Activity Restrictions/Add. Instructions Additional Instructions/Restrictions: Please have the patient follow-up with urologist given ongoing urinary retention. Follow-up with your urine culture results to make sure he is on the appropriate antibiotics. Return with any worsening symptoms. Clinical Impressions Clinical Impression: Acute urinary retention, Complicated urinary tract infection Instructions Patient Instructions: DI for Urinary Tract Infection (UTI), DI for Urinary Tract Infection in Children Discharge ED Provider: Jeter,J Juan Carlos General Adult HPI General Chief complaint: Urogenital-Male Stated complaint: urinary retention Time Seen by Provider: 08/27/22 16:45 Mode of Arrival: EMS Source of Information: Patient and EMS Limitations: No Limitations Description of Symptoms (Recalled from ER Triage Doc. by RN): Pt from [facility] for urinary obstruction/retention, reportedly had whitfield catheter x 3 wks, removed 08/25 and anuric since except I peed a little this morning , NAD History of Present Illness HPI narrative: 62-year-old male presenting today with urinary retention. Was recently given a urinary catheter had it for 3 weeks and had a voiding trial was unsuccessful and was sent back from his senior care today for the same symptoms. He has no new or different symptoms including abdominal pain urinary frequency urgency burning or fever. He tried to pee and had a very small amount out and states that he is currently unable to urinate. Denies any other symptoms Related Data Home Medications Medication Instructions Recorded Confirmed acetaminophen 500 mg tablet 1,000 mg PO Q6HP PRN PAIN/FEVER 04/29/19 08/25/22 citalopram 20 mg tablet 20 mg PO DAILY MOOD 04/18/20 08/25/22 pantoprazole 40 mg tablet,delayed 40 mg PO DAILY GERD 08/30/20 08/25/22 release ranolazine 1,000 mg 1,000 mg PO BID ANGINA 08/30/20 08/25/22 tablet,extended release,12 hr carvedilol 12.5 mg tablet 12.5 mg PO BID Hypertension 11/02/20 08/25/22 fluticasone furoate 100 1 puff inhalation DAILY Breathing 12/17/21 08/25/22 mcg-vilanterol 25 mcg/dose problems inhalation powder ticagrelor 90 mg tablet 90 mg PO BID PLATELET INHIBITOR 12/18/21 08/25/22 insulin aspar prot-insulin asp
[2022-08-27 17:09] LABS: Microscopic, Urine URINE MICROSCOPIC (MICROSCOPIC)
[2022-08-27 17:14] LABS: Appearance,Urine CLEAR (Clear); Bilirubin,Urine Negative (Negative); Blood, Urine Negative (Negative); Color,Urine YELLOW (Yellow); Glucose,Urine (UA) Negative (Negative); Ketones,Urine Negative (Negative); Leukocyte Esterase,Urine TRACE (Negative); Nitrate,Urine POSITIVE (Negative); Protein,Urine Negative (Negative); Specific Gravity, Urine 1.025 (1.005-1.030); Urobilinogen,Urine 0.2 EU/dl (0.2)
[2022-08-27 17:30] LABS: Bacteria,Urine Trace /lpf; Squamous Epithelial Cell,Urine Occasional #/hpf (0-5)
--- NOTE | 2022-08-27 17:56 | PC.NURSE ---
rounded on pt, pt sleeping
--- NOTE | 2022-08-27 18:10 | PC.NURSE ---
called [facility] to advise them of pt discharge and his need for transportation back to facility.
--- NOTE | 2022-08-27 19:02 | PC.NURSE ---
spoke with [facility], employee stated that management was attempting to find the pt a ride back to facility.
--- NOTE | 2022-08-27 19:31 | PC.NURSE ---
Attempted to call [facility] twice, received no answer.
--- NOTE | 2022-08-27 19:44 | PC.NURSE ---
Spoke with [facility], they advised management was still trying to figure it out
== END 2022-08-27 20:07 | disposition home or self-care (01) ==
PROVIDERS: Emergency Provider Student in an Organized Health Care Education/Training Program; PCP Emergency Medicine
DX: N39.0 Urinary tract infection, site not specified (principal)
CPT/HCPCS: 51702; 81001; 99283; 99284

== ENCOUNTER → 2022-11-29 09:00 | Outpatient (POV) | payer MEDICARE, SELFPAY | PROVIDERS: Visit Provider Specialist/Technologist | DX: Z00.00 Encounter for general adult medical examination without abnormal findings (principal) ==

== ENCOUNTER → 2023-01-24 11:34 | Outpatient (POV) | payer MEDICARE, SELFPAY | PROVIDERS: Visit Provider Specialist/Technologist | DX: Z00.00 Encounter for general adult medical examination without abnormal findings (principal) ==

== ENCOUNTER 2023-10-28 13:19 | Outpatient (CLI) | payer MEDICARE, MEDICAID, SELFPAY ==
--- NOTE | 2023-10-28 13:29 | CA_ITS ---
FINAL REPORT TECHNIQUE: Ultrasound images of the deep venous system were obtained from the left groin to the calf veins. CLINICAL HISTORY: LEFT LEG PAIN,EDEMA,NKI FINDINGS: The deep venous system is normally compressible. Normal flow is identified. IMPRESSION: No evidence of left lower extremity DVT. Reviewed, Interpreted and Dictated by Ishmael Suarez III, MD Transcribed by Sonal Lew Authenticated and [facility]
== END 2023-10-28 23:59 | disposition home or self-care (01) ==
LOC: RT 13:19
PROVIDERS: PCP Internal Medicine; Visit Provider Family Medicine
DX: M79.605 Pain in left leg (principal); R60.0 Localized edema
CPT/HCPCS: 93971

== ENCOUNTER 2023-11-07 07:59 | Outpatient (CLI) | payer MEDICARE, MEDICAID, SELFPAY ==
--- NOTE | 2023-11-07 07:59 | CA_ITS ---
APPROVED REPORT EXAM: Comprehensive 2D, Doppler, and color-flow Echocardiogram Splicer Helper: Aleah Newberry RT(R) Ht: 5 ft 6 in Wt: 229lbs BSA: 2.12 BP: 136/68 mmHg Indications: edema, COPD, dizziness, SOB 2D Dimensions LA Volume 50.20 mL LA Volume Index 23.68 mL/m2 (M/F) 16-34 EF AP4 73.40 % GL Strain -29.8 % M-Mode Dimensions RVDd 2.48 cm (0.9-2.6) LA Diam 3.77 cm (1.9-4.0) LVDd 5.74 cm (3.5-5.7) LVDs 4.33 cm (3.5-5.7) IVSd 0.96 cm (0.6-1.1) PWd 1.05 cm (0.6-1.1) EF (Teich) 48.10% FS 24.60% EDV (Teich) 162.60 mL TAPSE 2.38 (<1.7) ESV (Teich) 84.40 mL LV Diastology E Decel Time 200 (160-240 msec) E/A Ratio 1.0 Aortic Valve AI PHT 284.00 ms Mitral Valve MV E Max Melchor. 117.0 (40-130 cm/s) MV A Velocity 112.0 (40-130 cm/s) E/A Ratio 1.05 MV PHT 59.0 ms Left Ventricle The left ventricle is normal size. The left ventricular systolic function is normal. The left ventricular ejection fraction is within the normal range. There is increased LV wall thickness. There is normal LV segmental wall motion. The left ventricular diastolic function is normal. LVEF is 65%. Right Ventricle The right ventricle is normal size. The right ventricular systolic function is normal. Atria The left atrium size is normal. The right atrium size is normal. No Doppler evidence of interatrial shunt. Aortic Valve The aortic valve is mildly thickened. There is no aortic valvular stenosis. Mild aortic regurgitation. Mitral Valve Mild mitral annular calcification. The mitral valve leaflets are mildly thickened. No evidence of mitral valve stenosis. Mild mitral regurgitation. Tricuspid Valve The tricuspid valve leaflets are thin and pliable. Trace tricuspid regurgitation. RVSP is 15-20 mmHg. Pulmonic Valve The pulmonary valve is normal in structure. Trace pulmonic regurgitation. Great Vessels The aortic root is normal in size. The ascending aorta is not well-visualized. IVC is normal in size and collapses >50% with inspiration. Pericardium There is no pericardial effusion. Conclusion Normal biventricular systolic function. Mild AI, mild MR. Electronically signed by : Alice Eckert MD 11/10/2023 20:52:28
== END 2023-11-07 23:59 | disposition home or self-care (01) ==
LOC: RT 07:59
PROVIDERS: PCP Nurse Practitioner Family; Visit Provider Nurse Practitioner Family
DX: R60.0 Localized edema (principal)
CPT/HCPCS: 93306

== ENCOUNTER 2023-11-30 15:14 | Emergency (ER) | payer MEDICARE, MEDICAID, SELFPAY ==
[2023-11-30] VITALS (14 sets, daily range): BP systolic 157–210; BP diastolic 77–104; PULSE 65–78; RESP 18–20; TEMP 36.7–36.8; O2SAT 96–100; BMI 32.8
--- NOTE | 2023-11-30 15:35 | CT_ITS ---
PROCEDURE INFORMATION: Exam: CT Cervical Spine Without Contrast Exam date and time: 11/30/2023 3:55 PM Age: 63 years old Clinical indication: Injury or trauma; Fall; Blunt trauma; Additional info: Fall midline pain TECHNIQUE: Imaging protocol: Computed tomography of the cervical spine without contrast. Radiation optimization: All CT scans at this facility use at least one of these dose optimization techniques: automated exposure control; mA and/or kV adjustment per patient size (includes targeted exams where dose is matched to clinical indication); or iterative reconstruction. COMPARISON: CT CERVICAL SPINE WO CON 07/27/2022 9:22 AM FINDINGS: Bones: There is congenital anterior and posterior fusion across C2-C3. Cervical vertebra maintain their height. There is no fracture of the posterior elements. There is spondylosis and disc space narrowing most advanced at C3-C4 and C6-C7 with posterior osteophytes and disc bulges. This results in moderate central stenosis at these levels. There is mild foraminal stenosis at the same levels. Lungs: Lung apices are normal. Soft tissues: Unremarkable. IMPRESSION: 1. No fracture of the cervical spine 2. Spondylosis and disc disease resulting in moderate central stenosis at C3-C4 and C6-C7. 3. 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
--- NOTE | 2023-11-30 15:35 | CT_ITS ---
PROCEDURE INFORMATION: Exam: CT Head Without Contrast Exam date and time: 11/30/2023 3:55 PM Age: 63 years old Clinical indication: Injury or trauma; Fall; Blunt trauma (contusions or hematomas); Additional info: Fall, knocked out calvarial pain TECHNIQUE: Imaging protocol: Computed tomography of the head without contrast. Radiation optimization: All CT scans at this facility use at least one of these dose optimization techniques: automated exposure control; mA and/or kV adjustment per patient size (includes targeted exams where dose is matched to clinical indication); or iterative reconstruction. COMPARISON: CT HEAD/BRAIN WO CON 07/27/2022 FINDINGS: Brain: As best seen on coronal images 39-45, there is a small left frontal convexity subdural hematoma measuring 2 mm in thickness. No mass effect. No additional extra-axial hematoma. No parenchymal hemorrhage. No subarachnoid hemorrhage. Cerebral ventricles: There is no hydrocephalus. Paranasal sinuses: Visualized sinuses are unremarkable. No fluid levels. Mastoid air cells: There is a small amount of fluid in the right mastoids. Bones: Unremarkable. No acute fracture. Soft tissues: Unremarkable. IMPRESSION: Small subdural hematoma with maximal thickness of 2 mm along left frontal superior convexity. Density of blood indicates acute subdural. There was a much larger hematoma in this location on the prior scan.
--- NOTE | 2023-11-30 15:35 | CT_ITS ---
PROCEDURE INFORMATION: Exam: CT Thoracic Spine Without Contrast Exam date and time: 11/30/2023 3:59 PM Age: 63 years old Clinical indication: Injury or trauma; Fall; Blunt trauma (contusions or hematomas); Additional info: Fall midline pain TECHNIQUE: Imaging protocol: Computed tomography of the thoracic spine without contrast. Radiation optimization: All CT scans at this facility use at least one of these dose optimization techniques: automated exposure control; mA and/or kV adjustment per patient size (includes targeted exams where dose is matched to clinical indication); or iterative reconstruction. COMPARISON: CT CERVICAL SPINE WO CON 11/30/2023 3:55 PM FINDINGS: Bones/joints: Healed left 1st rib fracture. There is preservation of vertebral alignment and vertebral body heights. Facet joints are aligned. No acute fracture. There is no significant osseous encroachment of the spinal canal or neural foraminal narrowing at any level. Soft tissues: Unremarkable. Lymph nodes: Calcified mediastinal and hilar lymph nodes suggest prior granulomatous exposure. IMPRESSION: No acute fracture. No traumatic subluxation.
--- NOTE | 2023-11-30 15:35 | CT_ITS ---
PROCEDURE INFORMATION: Exam: CT Lumbar Spine Without Contrast Exam date and time: 11/30/2023 4:02 PM Age: 63 years old Clinical indication: Injury or trauma; Fall; Blunt trauma (contusions or hematomas); Additional info: Fall midline pain TECHNIQUE: Imaging protocol: Computed tomography of the lumbar spine without contrast. Radiation optimization: All CT scans at this facility use at least one of these dose optimization techniques: automated exposure control; mA and/or kV adjustment per patient size (includes targeted exams where dose is matched to clinical indication); or iterative reconstruction. COMPARISON: CT THORACIC SPINE WO CON 11/30/2023 3:59 PM FINDINGS: Bones/joints: There is partial fusion of the otherwise intact with joints. Anterolisthesis of L4 over L5, likely degenerative.There is preservation of vertebral body heights. Facet joints are aligned. No acute fracture.Diffuse osteopenia. L1-L2: No significant disc bulge or herniation. No severe spinal canal stenosis. No significant neural foraminal narrowing. L2-L3: No significant disc bulge or herniation. No severe spinal canal stenosis. No significant neural foraminal narrowing. L3-L4: Diffuse disc bulge and facet arthropathy noted. No significant spinal canal stenosis. There is moderate bilateral neural foraminal narrowing. L4-L5: Diffuse disc bulge and facet arthropathy noted. There is moderate spinal canal stenosis. There is severe bilateral neural foraminal narrowing. L5-S1: Diffuse disc bulge and facet arthropathy noted. No significant spinal canal stenosis. There is severe bilateral neural foraminal narrowing. Soft tissues: Unremarkable. IMPRESSION: 1. No acute fracture. No traumatic subluxation. 2. Anterolisthesis of L4 over L5, likely degenerative.
--- NOTE | 2023-11-30 15:36 | ED_ITS ---
Discharge Plan Disposition Patient Disposition: Home, Self-Care Chief Complaint: Head Injury Prescriptions Prescriptions: No Action aspirin [Aspirin Childrens] 81 mg tablet,chewable 81 mg PO DAILY fluticasone propionate 50 mcg/actuation spray,suspension 1 spray intranasal BID Rx Instructions: administer into each nostril citalopram 20 mg tablet 20 mg PO DAILY tamsulosin 0.4 mg capsule 0.4 mg PO HS Brilinta 60 mg tablet 60 mg PO BID (DME) BD AutoShield Duo Pen Needle 30 gauge x 3/16 needle See Rx Instructions .ROUTE .MEDSUPPLY Qty: 100 Rx Instructions: As directed acetaminophen [Acetaminophen Extra Strength] 500 mg tablet 500 mg PO Q4H PRN bisacodyl [Laxative (bisacodyl)] 10 mg suppository 10 mg NC DAILY PRN (Reason: bowel care) lactulose 10 gram/15 mL solution 20 g PO DAILY PRN (Reason: bowel care) ondansetron HCl 4 mg tablet 4 mg PO Q6H PRN (Reason: nausea and vomiting) atorvastatin 80 mg tablet 80 mg PO DAILY Qty: 90 3RF fluticasone furoate-vilanterol [Breo Ellipta] 100-25 mcg/dose blister with device 1 inh inhalation DAILY ferrous sulfate 324 mg (65 mg iron) tablet,delayed release (DR/EC) 324 mg PO DAILY pantoprazole 40 mg tablet,delayed release (DR/EC) 40 mg PO BID quetiapine 50 mg tablet 50 mg PO QAM quetiapine [Seroquel] 50 mg tablet 100 mg PO HS sennosides-docusate sodium [Senexon-S] 8.6-50 mg tablet 2 tab-cap PO BID insulin asp prt-insulin aspart [Novolog Mix 70-30FlexPen U-100] 100 unit/mL (70-30) insulin pen See Rx Instructions .ROUTE .COMPLEX Rx Instructions: inject 35 units SUBCUTANEOUSLY IN THE MORNING (BEFORE breakfast) and inject 45 units SUBCUTANEOUSLY IN THE EVENING (BEFORE SUPPER) metformin 1,000 mg tablet 1,000 mg PO BID Qty: 180 3RF chlorthalidone 50 mg tablet 100 mg PO DAILY ranolazine 1,000 MG tablet extended release 12 hr 1,000 mg PO BID albuterol sulfate 90 mcg/actuation Hfa Aerosol Inhaler 2 puff INHALATION QID PRN (Reason: SOA,wheeze) Referrals Follow up/Referrals: Provider,Referral, MD [Primary Care Provider] - See instructions Activity Restrictions/Add. Instructions Additional Instructions/Restrictions: There was a small head bleed found today from your fall. Fortunately repeat CAT scan showed that it is stable and not expanding. Given this it is okay to go home. Do not take your aspirin or ticagrelor for the next 2 weeks. Please follow-up with your family doctor within 1 week for continued evaluation. If new or worsening symptoms please do not hesitate to return the emergency department. Clinical Impressions Clinical Impression: Acute subdural hematoma Discharge ED Provider: Heri Gómez General Adult HPI General Chief complaint: Head Injury Stated complaint: fall Time Seen by Provider: 11/30/23 15:17 Mode of Arrival: EMS Source of Information: Patient and EMS Limitations: No Limitations Description of Symptoms (Recalled from ER Triage Doc. by RN): fell this am @ retirement. hit the back of his head History of Present Illness HPI narrative: Patient is a 63-year-old male with past medical history of diabetes with neuropathy, hypertension, hyperlipidemia, retirement dependent on dual antiplatelet therapy who presents emergency department for evaluation of traumatic injury sustained in a ground-level fall. Patient was pulling a drawer out of his dresser when he slipped when the door fell out falling striking his head with loss of consciousness. He states that he struck the top of his head on concrete. It is unknown whether he fell forwards or backwards as he knocked himself out and does not fully remember the event but assumes that the top of his head hit the floor because that is where it hurts. He is also complaining of midline back pain all the way down. Denies extremity pain, no chest pain, no abdominal pain, no anterior thoracic cage pain, no upper extremity pain. No other acute complaints at this time. Related Data Home Medications Medication Instructions Recorded Confirmed ranolazine 1,000 mg 1,000 mg PO BID ANGINA 08/30/20 10/29/23 tablet,extended release,12 hr albuterol sulfate 90 mcg/actuation 2 puff inhalation QID PRN 08/25/22 10/29/23 aerosol inhaler SOA,wheeze tamsulosin 0.4 mg capsule 0.4 mg PO HS 01/10/23 10/29/23 ticagrelor 60 mg tablet (Brilinta) 60 mg PO BID 01/10/23 10/29/23 aspirin 81 mg chewable tablet 81 mg PO DAILY 01/24/23 10/29/23 (Aspirin Childrens) citalopram 20 mg tablet 20 mg PO DAILY 01/24/23 10/29/23 fluticasone propionate 50 1 spray intranasal BID 01/24/23 10/29/23 mcg/actuation nasal spray,suspension acetaminophen 500 mg tablet 500 mg PO Q4H PRN 05/07/23 10/29/23 (Acetaminophen Extra Strength) bisacodyl 10 mg rectal suppository 10 mg NC DAILY PRN bowel care 05/07/23 10/29/23 (Laxative (bisacodyl)) ferrous sulfate 324 mg (65 mg 324 mg PO DAILY Supplement 05/07/23 10/29/23 iron) tablet,delayed release fluticasone furoate 100 1 inh inhalation DAILY 05/07/23 10/29/23 mcg-vilanterol 25 mcg/dose inhalation powder (Breo Ellipta) lactulose 10 gram/15 mL oral 20 g PO DAILY PRN bowel care 05/07/23 10/29/23 solution ondansetron HCl 4 mg tablet 4 mg PO Q6H PRN nausea and vomiting 05/07/23 10/29/23 pantoprazole 40 mg tablet,delayed 40 mg PO BID GERD 05/07/23 10/29/23 release quetiapine 50 mg tablet 50 mg PO QAM 05/07/23 10/29/23 quetiapine 50 mg tablet (Seroquel) 100 mg PO HS 05/07/23 10/29/23 sennosides 8.6 mg-docusate sodium 2 tab-cap PO BID costipation 05/07/23 10/29/23 50 mg tablet (Senexon-S) pen needle,diabetic dual safty 30 #100 ea 08/15/23 10/29/23 gauge x 3/16 (BD AutoShield Duo Pen Needle) insulin aspar prot-insulin aspart See Rx Instructions .Route 08/20/23 10/29/23 100 unit/mL (70-30) subcutaneous .COMPLEX Diabetes pen (Novolog Mix 70-30FlexPen U-100) chlorthalidone 50 mg tablet 100 mg PO DAILY fluid & high blood 11/12/23 pressure Previous Rx's Medication Instructions Recorded atorvastatin 80 mg tablet 80 mg PO DAILY Cholesterol #90 tabs 05/07/23 metformin 1,000 mg tablet 1,000 mg PO BID #180 tabs 09/10/23 Allergies Allergy/AdvReac Type Severity Reaction Status Date / Time morphine [MORPHINE] Allergy Severe I-ITCHING Verified 10/29/23 15:32 influenza virus vaccine qs Allergy Unknown Verified 10/29/23 15:32 2019-20 (6 mos and up) allergy [From Fluarix Quad 2074-4630 reaction (PF)] [facility] Disclaimer: The information contained in this section may have been updated after the patient was seen, as this information can be updated by other users. Medical History Lower extremity edema left greater than right. low suspicion for DVT Obesity, Class II, BMI 35-39.9, isolated (see actual BMI) Coronary artery disease stable Diabetic neuropathy Hypertensive heart disease without heart failure Coronary artery disease Diabetic neuropathy Diabetic ulcer of left foot Fungal ear infection Noncompliance Osteomyelitis of second toe of right foot Other hyperlipidemia Renal insufficiency Sepsis with acute respiratory failure Systemic inflammatory response syndrome (SIRS) Typical angina Impacted cerumen, bilateral Other asthma Right chronic otitis media Healed perforated eardrum Perforated tympanic membrane of both ears on examination Foreign body in right ear Impacted cerumen of left ear Acute right otitis media Tinnitus Hearing Loss Complicated urinary tract infection Acute urinary retention Elevated erythrocyte sedimentation rate Hemoptysis Acute subdural hematoma Epidural hematoma Finger infection Fall Diarrhea Suppurative tenosynovitis of flexor tendon Abscess of finger of left hand Concussion without loss of consciousness Weakness Shortness of breath Other acute osteomyelitis, left ankle and foot Postoperative wound dehiscence Cellulitis Left leg cellulitis Closed head injury Fall Unstable angina Dyspnea Abscess Laceration Atypical chest pain Onychodystrophy Postoperative edema Diabetic polyneuropathy associated with type 2 diabetes mellitus Abscess of left leg Cellulitis of left lower leg SIRS (systemic inflammatory response syndrome) Fever Sepsis Cellulitis Bacteremia Cellulitis of left foot Osteomyelitis of great toe of left foot Diabetic ulcer of left great toe IFEOMA (acute kidney injury) Renal insufficiency Hyponatremia Elevated erythrocyte sedimentation rate Obesity (BMI 30-39.9) Hyponatremia Diabetic foot ulcer Diabetic foot infection Costal chondritis Fungal ear infection Sinusitis Bradycardia Fatigue Dizziness Angina pectoris Typical angina Medication adverse effect Flank pain, acute Stable angina HHD (hypertensive heart disease) Diabetes CAD (coronary artery disease) Surgical History History of transmetatarsal amputation of right foot History of transmetatarsal amputation of right foot Presence of stent in coronary artery History of partial ray amputation of second toe of left foot Status post foot surgery History of partial amputation of toe Stented coronary artery Family History Other No significant family history Social History Smoking Status: Never smoker second hand exposure: No alcohol intake: never substance use type: denies use current occupational status: disabled Travel in the last 8 weeks: Inside the [place] household members: other housing: retirement current occupational exposures/hazards: No caffeine: Yes ROS Obtained: Yes Systems reviewed as appropriate & no additional complaints except as documented Physical Exam General General appearance: alert and in no apparent distress Head Head exam: atraumatic and normocephalic Eye Eye exam: Present PERRL and EOMI ENT ENT exam: Present mucous membranes moist Neck Neck exam: Present normal inspection and tenderness (Midline) Chest Chest inspection: Present normal inspection and symmetric chest wall rise Respiratory Respiratory exam: Absent respiratory distress Cardiovascular Cardiovascular exam: Present regular rate and normal rhythm Abdominal Exam Abdominal exam: Present soft; Absent tenderness Extremities Exam Extremities exam: Present normal inspection Neurological Exam Neurological exam: Present alert and CN II-XII intact; Absent motor sensory deficit Psychiatric Psychiatric exam: Present normal affect Skin Skin exam: Present warm and dry Medical Decision Making Russell Inquiry Pt receiving controlled substance: No Vital Signs: 11/30/23 15:14 11/30/23 15:30 11/30/23 16:19 Temperature 98.3 F Temperature Source Oral Pulse Rate 73 75 Pulse Rate [Right] 78 Respiratory Rate 18 Blood Pressure 199/99 H 168/81 H Blood Pressure [Right Arm] 200/103 H Blood Pressure Mean Blood Pressure Mean [Right Arm] 135 02 Sat by Pulse Oximetry 99 99 100 Oxygen Delivery Method Room Air Room Air 11/30/23 17:00 11/30/23 17:30 11/30/23 18:39 Temperature Temperature Source Pulse Rate 71 69 Pulse Rate [Right] Respiratory Rate Blood Pressure 161/82 H 157/81 H 164/77 H Blood Pressure [Right Arm] Blood Pressure Mean 108 117 106 Blood Pressure Mean [Right Arm] 02 Sat by Pulse Oximetry 99 99 Oxygen Delivery Method Room Air 11/30/23 19:00 11/30/23 19:31 11/30/23 20:00 Temperature Temperature Source Pulse Rate 68 67 Pulse Rate [Right] Respiratory Rate Blood Pressure 180/90 H 210/104 H 178/93 H Blood Pressure [Right Arm] Blood Pressure Mean 109 119 121 Blood Pressure Mean [Right Arm] 02 Sat by Pulse Oximetry 97 96 Oxygen Delivery Method Room Air Room Air 11/30/23 21:00 11/30/23 21:30 11/30/23 22:01 Temperature Temperature Source Pulse Rate 70 69 65 Pulse Rate [Right] Respiratory Rate Blood Pressure 182/90 H 207/93 H 167/78 H Blood Pressure [Right Arm] Blood Pressure Mean 120 131 107 Blood Pressure Mean [Right Arm] 02 Sat by Pulse Oximetry 98 98 98 Oxygen Delivery Method Room Air Room Air Room Air Lab Data Lab Results 11/30/23 16:25: WBC 9.3, RBC 3.61 L, Hgb 12.3 L, Hct 37.2 L, MCV 103.1 H, MCH 34.1 H, MCHC 33.1, RDW 14.2, Plt Count 164, MPV 8.2, Neut % (Auto) 66.5, Lymph % (Auto) 19.7, Fergus % (Auto) 7.9, Eos % (Auto) 5.5, Baso % (Auto) 0.5, Neut # (Auto) 6.2, Lymph # (Auto) 1.8, Fergus # (Auto) 0.7, Eos # (Auto) 0.5 H, Baso # (Auto) 0.1, Sodium 130 L, Potassium 3.4 L, Chloride 93 L, Carbon Dioxide 25, A nion Gap 15.4 H, BUN 10, Creatinine 0.90, Estimated Creat Clear 96, Estimated GFR 85, Est GFR ( Amer) 102, Glucose 141 H, Calcium 9.0 11/30/23 16:25 11/30/23 16:25 Orders (Tests/Meds): ED MEDICATIONS Discontinued Medications Generic Name Dose Route Start Last Admin Trade Name Freq PRN Reason Stop Dose Admin Vasopressin 20 unit/ Sodium 51 mls @ 200 mls/hr 11/30/23 20:00 11/30/23 20:15 Chloride IV 07/06/24 20:15 200 mls/hr ONCE ONE Administration ORDERS Category Date Time Status CT cervical spine wo con Stat Cat Scan 11/30/23 15:[address] head/brain wo con Stat Cat Scan 11/30/23 15:[address] head/brain wo con Stat Cat Scan 11/30/23 21:[address] lumbar spine wo con Stat Cat Scan 11/30/23 15:[address] thoracic spine wo con Stat Cat Scan 11/30/23 15:35 Completed BMP [Basic Metabolic Panel] Stat Lab 11/30/23 16:25 Completed CBC w/Auto Diff [Complete Blood Count Auto Diff] Stat Lab 11/30/23 16:25 Completed Medical Decision Narrative: In summary patient is 63-year-old male with past medical history described above who presents emergency department for evaluation of traumatic injury sustained in a fall. Patient is hemodynamically stable nontoxic-appearing upon arrival, afebrile. Differential diagnosis includes intracranial hemorrhage, spine fracture, among others. C-spine precautions will be initiated. He is alert and oriented however does seem to be somewhat confused. Patient will undergo noncontrasted scans of the head, C, T, L-spine. Contrast imaging of the chest and abdomen was considered but based on history and physical will be deferred. Hematologic labs will be obtained. Initial inventions include Tylenol. Initial workup reviewed by me, hematologic labs are nonactionable. Trauma survey remarkable for small subdural hematoma maximal thickness 2 mm left frontal superior convexity. CT of the spine shows disc disease and degenerative changes, there is moderate central canal stenosis at C3/C4 however patient is neurologically intact in bilateral upper and lower extremities I do not suspect acute spinal cord compression at this time. Given that patient has subdural hematoma on dual antiplatelet therapy he will require transfer to higher level of care. There has been difficulty in transferring the images which is prolonging his hospital stay. Repeat evaluation 5:30 PM patient is mentating better than when he arrived, no new neurologic deficits. The case was discussed with [facility] neurosurgeon on-call Dr. Wolfe. He recommends DDAVP and 6-hour interval CT. If 6-hour interval CT shows no interval change patient is appropriate for discharge at this time and will refrain from antiplatelets for 2 weeks and will follow-up with family doctor. The patient was placed in observation status at 6:45 PM. Medical necessity for observational status is repeat CT and physical exam. Patient was provided serial reevaluations while awaiting results, results of testing during observation remarkable for stable subdural hematoma. Repeat CT scan shows no interval change. Upon repeat evaluation patient was well-appearing with no new neurologic deficits, given this along with [facility] neurosurgical recommendations patient is appropriate for outpatient management at this time and will hold his antiplatelets for 2 weeks before resuming. Total time in observation 3 hours 49 minutes. Critical Care Critical Care Time Critical Care Time: Yes Attestation: On 11/30/23, the high probability of a clinically significant, sudden or life threatening deterioration of the following system(s) required my full and direct attention, intervention and personal management. The time I documented below is in addition to time spent performing reported procedures but includes the following listed in this critical care notation. Total Time Total Critical Care Time: 45
[2023-11-30 16:31] LABS: Basophils # 0.1 K/mm3 (0-0.2); Basophils % 0.5 % (0.1-2.0); Eosinophils # 0.5 K/mm3 (0.0-0.4); Eosinophils % 5.5 % (0.1-12.0); Hematocrit 37.2 % (42.0-52.0); Hemoglobin 12.3 g/dL (14.1-18.0); Lymphocytes # 1.8 K/mm3 (0.7-4.5); Lymphocytes % 19.7 % (10-50); Mean Corpuscular HGB Conc 33.1 g/dL (31.8-35.4); Mean Corpuscular Hemoglobin 34.1 pg (27.0-31.2); Mean Corpuscular Volume 103.1 fl (80-94); Mean Platelet Volume 8.2 fl (7.4-10.4); Monocytes # 0.7 K/mm3 (0.1-1.0); Monocytes % 7.9 % (1.7-9.3); Neutrophils # 6.2 K/mm3 (1.8-7.8); Neutrophils % 66.5 % (37.0-80.0); Platelet Count 164 K/mm3 (142-424); Red Blood Count 3.61 M/mm3 (4.60-6.20); Red Cell Distribution Width 14.2 % (11.5-17.5); White Blood Count 9.3 K/mm3 (4.8-10.8)
[2023-11-30 16:38] LABS: Chloride 93 mmol/L (98-107); Potassium 3.4 mmoL/L (3.5-5.1); Sodium 130 mmol/L (136-145)
[2023-11-30 16:41] LABS: Anion Gap 15.4 mEq/L (5-15); Blood Urea Nitrogen 10 mg/dl (9-20); Carbon Dioxide 25 mmol/L (22.0-30.0); Creatinine Clearance Estimated 96 mL/min (50-200); Estimated Glomerular Filt Rate 85 ml/min (>60); GFR (African American) 102 ML/MIN (>60)
[2023-11-30 16:42] LABS: Glucose 141 mg/dl (74-100)
--- NOTE | 2023-11-30 17:08 | PC.NURSE ---
calling transfer center for ed to ed transfer
--- NOTE | 2023-11-30 17:19 | PC.NURSE ---
rounded on pt no need at this time,call light in reach
--- NOTE | 2023-11-30 18:35 | PC.NURSE ---
speaking with [facility]
--- NOTE | 2023-11-30 18:41 | PC.NURSE ---
[place] Denied patient, trying [place] at this time.
--- NOTE | 2023-11-30 19:03 | PC.NURSE ---
spoke with lion in pharmacy for DDAVP dosing
--- NOTE | 2023-11-30 20:25 | PC.NURSE ---
Pt ambulated to restroom with assist
--- NOTE | 2023-11-30 21:35 | CT_ITS ---
PROCEDURE INFORMATION: Exam: CT Head Without Contrast Exam date and time: 11/30/2023 9:43 PM Age: 63 years old Clinical indication: Injury or trauma; Fall; Other: Hematoma; Additional info: Interval assessment TECHNIQUE: Imaging protocol: Computed tomography of the head without contrast. Radiation optimization: All CT scans at this facility use at least one of these dose optimization techniques: automated exposure control; mA and/or kV adjustment per patient size (includes targeted exams where dose is matched to clinical indication); or iterative reconstruction. COMPARISON: CT HEAD/BRAIN WO CON 11/30/2023 3:55 PM FINDINGS: Brain: Small left frontal subdural hematoma near the vertex best seen on coronal images. Maximal thickness is 2 mm. No change from prior scan. No parenchymal hemorrhage. No subarachnoid hemorrhage. No infarct. Cerebral ventricles: There is no hydrocephalus. No intraventricular hemorrhage. Paranasal sinuses: Visualized sinuses are unremarkable. No fluid levels. Mastoid air cells: Visualized mastoid air cells are well aerated. Bones: Unremarkable. No acute fracture. Soft tissues: Unremarkable. IMPRESSION: 2 mm left frontal subdural hematoma is stable compared with prior scan.
--- NOTE | 2023-11-30 21:36 | PC.NURSE ---
Pt transported to CT for 2nd head CT
--- NOTE | 2023-11-30 22:47 | PC.NURSE ---
Report called to [facility] to Christie FULLER. Pt will be returning back via EMS to his room #[id number]
== END 2023-12-01 00:31 | disposition home or self-care (01) ==
PROVIDERS: Emergency Provider Emergency Medicine
DX: S06.5X1A Traumatic subdural hemorrhage with loss of consciousness of 30 minutes or less, initial encounter (principal); M54.9 Dorsalgia, unspecified; E87.6 Hypokalemia; E87.1 Hypo-osmolality and hyponatremia; E11.40 Type 2 diabetes mellitus with diabetic neuropathy, unspecified; E78.5 Hyperlipidemia, unspecified; I11.9 Hypertensive heart disease without heart failure; I25.119 Atherosclerotic heart disease of native coronary artery with unspecified angina pectoris; Z95.5 Presence of coronary angioplasty implant and graft; Z79.4 Long term (current) use of insulin; Z79.84 Long term (current) use of oral hypoglycemic drugs; W18.39XA Other fall on same level, initial encounter
CPT/HCPCS: 70450; 72125; 72128; 72131; 80048; 85025; 96374; 99291

== ENCOUNTER 2024-01-07 14:39 | Outpatient (CLI) | payer MEDICARE, MEDICAID, SELFPAY ==
[2024-01-07 15:02] LABS: Anion Gap 14.6 mEq/L (5-15); Blood Urea Nitrogen 5 mg/dl (9-20); Calcium 8.9 mg/dl (8.4-10.2); Carbon Dioxide 24 mmol/L (22.0-30.0); Chloride 86 mmol/L (98-107); Chol/HDL Ratio 2.6 (1-3.5); Cholesterol 108 mg/dl (140-200); Estimated Glomerular Filt Rate 113 ml/min (>60); GFR (African American) 137 ML/MIN (>60); Glucose 164 mg/dl (74-100); HDL Cholesterol 41 mg/dl (40-60); Potassium 3.6 mmoL/L (3.5-5.1); Sodium 121 mmol/L (136-145); Triglycerides 116 mg/dl (30-150); VLDL Cholesterol 23 mg/dL (0-40)
[2024-01-07 15:12] LABS: Direct LDL Cholesterol 45.72 mg/dL (100-129)
[2024-01-07 15:32] LABS: Prostate Specific Ag Screen 0.2 ng/ml (0.0-4.0)
== END 2024-01-07 23:59 | disposition home or self-care (01) ==
LOC: LAB.DROPOF 14:41
PROVIDERS: Family Medicine; PCP Internal Medicine; Visit Provider Nurse Practitioner Family
DX: E78.2 Mixed hyperlipidemia (principal); Z12.5 Encounter for screening for malignant neoplasm of prostate; E87.6 Hypokalemia
CPT/HCPCS: 80048; 80061; G0103

== ENCOUNTER 2024-01-08 10:11 | Outpatient (CLI) | payer MEDICARE, MEDICAID, SELFPAY ==
[2024-01-08 11:19] LABS: Anion Gap 12.3 mEq/L (5-15); Blood Urea Nitrogen 7 mg/dl (9-20); Calcium 8.9 mg/dl (8.4-10.2); Carbon Dioxide 25 mmol/L (22.0-30.0); Chloride 90 mmol/L (98-107); Estimated Glomerular Filt Rate 97 ml/min (>60); GFR (African American) 117 ML/MIN (>60); Glucose 111 mg/dl (74-100); Potassium 3.3 mmoL/L (3.5-5.1); Sodium 124 mmol/L (136-145)
== END 2024-01-08 23:59 | disposition home or self-care (01) ==
LOC: LAB 10:13
PROVIDERS: PCP Internal Medicine; Visit Provider Nurse Practitioner Family
DX: E87.1 Hypo-osmolality and hyponatremia (principal)
CPT/HCPCS: 80048

== ENCOUNTER 2024-01-09 10:50 | Outpatient (CLI) | payer MEDICARE, MEDICAID, SELFPAY ==
[2024-01-09 12:19] LABS: Chloride 91 mmol/L (98-107)
[2024-01-09 12:20] LABS: Potassium 3.7 mmoL/L (3.5-5.1); Sodium 129 mmol/L (136-145)
[2024-01-09 12:22] LABS: Blood Urea Nitrogen 7 mg/dl (9-20); Estimated Glomerular Filt Rate 85 ml/min (>60); GFR (African American) 102 ML/MIN (>60)
[2024-01-09 12:23] LABS: Anion Gap 11.7 mEq/L (5-15); Carbon Dioxide 30 mmol/L (22.0-30.0); Glucose 108 mg/dl (74-100)
== END 2024-01-09 23:59 | disposition home or self-care (01) ==
LOC: LAB.DROPOF 10:52
PROVIDERS: Family Medicine; PCP Internal Medicine; Visit Provider Nurse Practitioner Family
DX: E87.1 Hypo-osmolality and hyponatremia (principal)
CPT/HCPCS: 80048

== ENCOUNTER → 2024-01-15 10:12 | Day surgery (SDC) | payer MEDICARE, MEDICAID, SELFPAY ==
[2024-01-15 10:44] VITALS: BP 137/77; PULSE 74; RESP 18; TEMP 36.3; O2SAT 100
[2024-01-15 11:00] VITALS: BMI 40.1
--- NOTE | 2024-01-15 12:00 | EXP.TILT ---
Findings:: PROCEDURE: Tilt Table Test REQUESTING PHYSICIAN: Mckenzie Strickland MD INDICATION: Dizziness, frequent falls BETA BLOCKERS: None PRE-TEST VITAL SIGNS (supine position): BP 158/87, HR 73 bpm and sinus rhythm, O2Sats 100% PROCEDURE SUMMARY: Patient was prepped per protocol, IV started, connected to heart, blood pressure and oxygen saturation monitors and safety straps applied. He was then tilted upright at 70 degrees for a total of 10 minutes, with the test being stopped early due to the patient's foot discomfort from standing. While upright, he denied any neurological symptoms, to include, no dizziness, lightheadedness, near syncope or syncope. Two minutes after being tilted upright, his blood pressure was 150/69 and heart rate was 71 bpm. Five minutes later his BP was 153/67 and HR was 72 bpm. Three minutes later, just prior to being returned to the supine position, his BP had dropped to 132/72 with a HR of 73 bpm. After being returned to the supine position his BP eliud to 149/78 with a HR of 69 bpm. He remained in a normal sinus rhythm throughout the test. Oxygen saturations stayed at 100%. CONCLUSIONS: Test was stopped after only 10 minutes due to patient discomfort. Just prior to termination, there was borderline evidence of asymptomatic, delayed, orthostatic hypotension.
[2024-01-17 06:37] LABS: POC Glucose,Bedside 83 (70-110)
== END ==
LOC: RT 10:13
PROVIDERS: Specialist; Visit Provider Internal Medicine
DX: R55 Syncope and collapse (principal); R29.6 Repeated falls; R42 Dizziness and giddiness
CPT/HCPCS: 82962; 93660

== ENCOUNTER 2024-01-16 13:50 | Outpatient (CLI) | payer MEDICARE, MEDICAID, SELFPAY | END 2024-01-16 23:59 | disposition home or self-care (01) | LOC: RT 13:51 | PROVIDERS: PCP Family Medicine; Visit Provider Physician Assistant | DX: R55 Syncope and collapse (principal); R06.02 Shortness of breath; R94.31 Abnormal electrocardiogram [ECG] [EKG]; R53.82 Chronic fatigue, unspecified | CPT/HCPCS: 93270 ==

== ENCOUNTER 2024-02-04 10:45 | Outpatient (CLI) | payer MEDICARE, MEDICAID, SELFPAY | END 2024-02-04 23:59 | disposition home or self-care (01) | PROVIDERS: PCP Internal Medicine; Visit Provider Internal Medicine | DX: L03.115 Cellulitis of right lower limb (principal); A48.0 Gas gangrene | CPT/HCPCS: 87070; 87077; 87186; 87205 ==

== ENCOUNTER 2024-02-04 10:59 | Inpatient (IN) | payer MEDICARE, MEDICAID, SELFPAY ==
[2024-02-04] VITALS (20 sets, daily range): BP systolic 116–164; BP diastolic 50–84; PULSE 72–97; RESP 15–24; TEMP 35.8–36.9; O2SAT 90–99; BMI 36.3; BMI 37.3
[2024-02-04 11:34] LABS: Basophils # 0.1 K/mm3 (0-0.2); Basophils % 0.3 % (0.1-2.0); Eosinophils # 0.1 K/mm3 (0.0-0.4); Eosinophils % 0.3 % (0.1-12.0); Hematocrit 30.8 % (42.0-52.0); Lymphocytes # 1.1 K/mm3 (0.7-4.5); Lymphocytes % 6.4 % (10-50); Mean Corpuscular HGB Conc 32.6 g/dL (31.8-35.4); Mean Corpuscular Hemoglobin 32.7 pg (27.0-31.2); Mean Corpuscular Volume 100.5 fl (80-94); Mean Platelet Volume 8.2 fl (7.4-10.4); Monocytes # 1.4 K/mm3 (0.1-1.0); Platelet Count 294 K/mm3 (142-424); Red Blood Count 3.07 M/mm3 (4.60-6.20); Red Cell Distribution Width 14.2 % (11.5-17.5); White Blood Count 17.6 K/mm3 (4.8-10.8)
[2024-02-04 11:36] LABS: Albumin Level 3.5 g/dl (3.5-5.0); Chloride 93 mmol/L (98-107); Potassium 3.7 mmoL/L (3.5-5.1); Sodium 126 mmol/L (136-145)
[2024-02-04 11:39] LABS: Alanine Aminotransferase 36 U/L (12-78); Albumin/Globulin Ratio 0.9 (1.1-1.8); Alkaline Phosphatase 69 U/L (38-126); Anion Gap 12.7 mEq/L (5-15); Aspartate Amino Transferase 44 U/L (17-59); Bilirubin,Total 1.4 mg/dl (0.2-1.3); Blood Urea Nitrogen 10 mg/dl (9-20); Carbon Dioxide 24 mmol/L (22.0-30.0); Creatinine Clearance Estimated 105 mL/min (50-200); Estimated Glomerular Filt Rate 97 ml/min (>60); GFR (African American) 117 ML/MIN (>60); Globulin 3.8 g/dL (1.3-3.2); Total Protein,Serum 7.3 g/dl (6.3-8.2)
[2024-02-04 11:40] LABS: Glucose 107 mg/dl (74-100)
[2024-02-04 11:43] LABS: Lactic Acid 2.5 mmol/L (0.7-2.1)
--- NOTE | 2024-02-04 11:46 | XR_ITS ---
FINAL REPORT CLINICAL HISTORY: soft tissue infx; gas; osteo? FINDINGS: Right foot Three views were obtained. There is no acute fracture or dislocation. There are mild degenerative changes. There is no bony erosion to suggest osteomyelitis. Soft tissue ulcer is seen medial to the 1st metatarsophalangeal joint. IMPRESSION: No evidence to suggest osteomyelitis. Soft tissue ulcer as above. Reviewed, Interpreted and Dictated by Ishmael Suarez III, MD Transcribed by Maya Hopper Authenticated and [facility]
--- NOTE | 2024-02-04 11:50 | PC.NURSE ---
Speaking with Dr. Flower.
--- NOTE | 2024-02-04 11:52 | ED_ITS ---
Discharge Plan Disposition Patient Disposition: Admitted Prescriptions Prescriptions: No Action aspirin [Aspirin Childrens] 81 mg tablet,chewable 81 mg PO DAILY fluticasone propionate 50 mcg/actuation spray,suspension 1 spray intranasal BID Rx Instructions: administer into each nostril citalopram 20 mg tablet 20 mg PO DAILY (DME) insulin syringe-needle U-100 1 mL 29 gauge x 1/2 syringe See Rx Instructions .ROUTE .MEDSUPPLY Qty: 10 Rx Instructions: As directed chlorhexidine gluconate [Betasept Surgical Scrub] 4 % liquid topical (DME) insulin syringe-needle U-100 0.5 mL 29 gauge x 1/2 syringe See Rx Instructions .ROUTE .MEDSUPPLY Qty: 10 Rx Instructions: As directed insulin asp prt-insulin aspart 100 unit/mL (70-30) solution SQ tamsulosin 0.4 mg capsule 0.4 mg PO HS (DME) BD AutoShield Duo Pen Needle 30 gauge x 3/16 needle See Rx Instructions .ROUTE .MEDSUPPLY Qty: 100 Rx Instructions: As directed divalproex 250 mg tablet,delayed release (DR/EC) 250 mg PO BID loperamide 2 mg capsule 2 mg PO DAILY acetaminophen [Acetaminophen Extra Strength] 500 mg tablet 500 mg PO Q4H PRN (Reason: Pain) bisacodyl [Laxative (bisacodyl)] 10 mg suppository 10 mg NV DAILY PRN (Reason: bowel care) lactulose 10 gram/15 mL solution 20 g PO DAILY PRN (Reason: bowel care) ondansetron HCl 4 mg tablet 4 mg PO Q6H PRN (Reason: nausea and vomiting) atorvastatin 80 mg tablet 80 mg PO DAILY Qty: 90 3RF fluticasone furoate-vilanterol [Breo Ellipta] 100-25 mcg/dose blister with device 1 inh inhalation DAILY ferrous sulfate 324 mg (65 mg iron) tablet,delayed release (DR/EC) 324 mg PO DAILY pantoprazole 40 mg tablet,delayed release (DR/EC) 40 mg PO BID quetiapine 50 mg tablet 50 mg PO QAM quetiapine [Seroquel] 50 mg tablet 100 mg PO HS sennosides-docusate sodium [Senexon-S] 8.6-50 mg tablet 2 tab-cap PO BID metformin 1,000 mg tablet 1,000 mg PO BID Qty: 180 3RF potassium chloride 10 mEq capsule, extended release 10 meq PO BID Qty: 180 3RF insulin asp prt-insulin aspart [Novolog Mix 70-30FlexPen U-100] 100 unit/mL (70-30) insulin pen 35 unit SQ BID amlodipine [Norvasc] 5 mg tablet 5 mg PO DAILY Qty: 90 3RF ranolazine 1,000 MG tablet extended release 12 hr 1,000 mg PO BID albuterol sulfate 90 mcg/actuation Hfa Aerosol Inhaler 2 puff INHALATION QID PRN (Reason: SOA,wheeze) Referrals Follow up/Referrals: Provider,Referral, MD [Primary Care Provider] - See instructions Clinical Impressions Clinical Impression: Cellulitis of foot, right, Diabetic ulcer of foot associated with diabetes mellitus due to underlying condition, with muscle involvement without evidence of necrosis, Sepsis Instructions Patient Instructions: DI for Laceration Repair Print Language Print Language: Maltese Discharge ED Provider: Pio Jeter General Adult HPI General Chief complaint: Wound/Laceration Stated complaint: wound on foot Time Seen by Provider: 02/04/24 11:41 Mode of Arrival: EMS Source of Information: Patient and EMS Limitations: No Limitations Description of Symptoms (Recalled from ER Triage Doc. by RN): Reports a worsening wound to his right foot. Frequent falls. History of Present Illness HPI narrative: Patient is a 64-year-old skilled nursing resident sent in today for worsening of his wound over his right foot. One of our nurses who works at his skilled nursing knows him well and has been evaluating this wound chronically and she states that the plantar aspect of his wound was there last week but the medial aspect of the redness and swelling is new over the last few days. prison also noted that he may be altered but according to our nurse in the ED he is at his mental baseline. Patient is awake alert answering questions to me and tells me that he has no other complaints does not have any significant pain fevers etc. Related Data Home Medications ?Medication ?Instructions ?Recorded ?Confirmed ranolazine 1,000 mg 1,000 mg PO BID ANGINA 08/30/20 02/04/24 tablet,extended release,12 hr albuterol sulfate 90 mcg/actuation 2 puff inhalation QID PRN 08/25/22 02/04/24 aerosol inhaler SOA,wheeze tamsulosin 0.4 mg capsule 0.4 mg PO HS 01/10/23 02/04/24 aspirin 81 mg chewable tablet 81 mg PO DAILY 01/24/23 02/04/24 (Aspirin Childrens) citalopram 20 mg tablet 20 mg PO DAILY 01/24/23 02/04/24 fluticasone propionate 50 1 spray intranasal BID 01/24/23 02/04/24 mcg/actuation nasal spray,suspension acetaminophen 500 mg tablet 500 mg PO Q4H PRN Pain 05/07/23 02/04/24 (Acetaminophen Extra Strength) bisacodyl 10 mg rectal suppository 10 mg NV DAILY PRN bowel care 05/07/23 02/04/24 (Laxative (bisacodyl)) ferrous sulfate 324 mg (65 mg 324 mg PO DAILY Supplement 05/07/23 02/04/24 iron) tablet,delayed release fluticasone furoate 100 1 inh inhalation DAILY 05/07/23 02/04/24 mcg-vilanterol 25 mcg/dose inhalation powder (Breo Ellipta) lactulose 10 gram/15 mL oral 20 g PO DAILY PRN bowel care 05/07/23 02/04/24 solution ondansetron HCl 4 mg tablet 4 mg PO Q6H PRN nausea and vomiting 05/07/23 02/04/24 pantoprazole 40 mg tablet,delayed 40 mg PO BID GERD 05/07/23 02/04/24 release quetiapine 50 mg tablet 50 mg PO QAM 05/07/23 02/04/24 quetiapine 50 mg tablet (Seroquel) 100 mg PO HS 05/07/23 02/04/24 sennosides 8.6 mg-docusate sodium 2 tab-cap PO BID costipation 05/07/23 02/04/24 50 mg tablet (Senexon-S) pen needle,diabetic dual safty 30 #100 ea 08/15/23 01/16/24 gauge x 3/16 (BD AutoShield Duo Pen Needle) insulin aspar prot-insulin aspart 35 unit SQ BID Diabetes 01/07/24 02/04/24 100 unit/mL (70-30) subcutaneous pen (Novolog Mix 70-30FlexPen U-100) divalproex 250 mg tablet,delayed 250 mg PO BID 01/08/24 02/04/24 release loperamide 2 mg capsule 2 mg PO DAILY 01/08/24 02/04/24 chlorhexidine gluconate 4 % topical 01/16/24 01/16/24 topical liquid (Betasept Surgical Scrub) insulin aspar prt-insulin aspart SQ 01/16/24 01/16/24 100 unit/mL (70-30) subcutaneous soln insulin syringe-needle U-100 0.5 #10 ea 01/16/24 01/16/24 mL 29 gauge x 1/2 insulin syringe-needle U-100 1 mL #10 ea 01/16/24 01/16/24 29 gauge x 1/2 Previous Rx's ?Medication ?Instructions ?Recorded atorvastatin 80 mg tablet 80 mg PO DAILY Cholesterol #90 tabs 05/07/23 metformin 1,000 mg tablet 1,000 mg PO BID #180 tabs 09/10/23 potassium chloride 10 mEq 10 meq PO BID #180 caps 12/10/23 capsule,extended release amlodipine 5 mg tablet (Norvasc) 5 mg PO DAILY #90 tabs 01/07/24 Allergies Allergy/AdvReac Type Severity Reaction Status Date / Time morphine [MORPHINE] Allergy Severe I-ITCHING Verified 01/16/24 13:17 influenza virus vaccine qs Allergy Unknown Verified 01/16/24 13:17 2019-20 (6 mos and up) allergy [From Fluarix Quad 2029-8616 reaction (PF)] [facility] Disclaimer: The information contained in this section may have been updated after the patient was seen, as this information can be updated by other users. Medical History (Updated 02/04/24 @ 12:46 by Pio Jeter MD) Fatigue Dyspnea Abnormal electrocardiogram [ECG] [EKG] Hyponatremia Angina at rest Lower extremity edema Obesity, Class II, BMI 35-39.9, isolated (see actual BMI) Coronary artery disease Diabetic neuropathy Hypertensive heart disease without heart failure Coronary artery disease Diabetic neuropathy Diabetic ulcer of left foot Fungal ear infection Noncompliance Osteomyelitis of second toe of right foot Other hyperlipidemia Renal insufficiency Sepsis with acute respiratory failure Systemic inflammatory response syndrome (SIRS) Typical angina Impacted cerumen, bilateral Other asthma Right chronic otitis media Healed perforated eardrum Perforated tympanic membrane of both ears on examination Foreign body in right ear Impacted cerumen of left ear Acute right otitis media Tinnitus Hearing Loss Complicated urinary tract infection Acute urinary retention Elevated erythrocyte sedimentation rate Hemoptysis Acute subdural hematoma Epidural hematoma Finger infection Fall Diarrhea Suppurative tenosynovitis of flexor tendon Abscess of finger of left hand Concussion without loss of consciousness Weakness Shortness of breath Other acute osteomyelitis, left ankle and foot Postoperative wound dehiscence Cellulitis Left leg cellulitis Closed head injury Fall Unstable angina Abscess Laceration Atypical chest pain Onychodystrophy Postoperative edema Diabetic polyneuropathy associated with type 2 diabetes mellitus Abscess of left leg Cellulitis of left lower leg SIRS (systemic inflammatory response syndrome) Fever Sepsis Cellulitis Bacteremia Cellulitis of left foot Osteomyelitis of great toe of left foot Diabetic ulcer of left great toe IFEOMA (acute kidney injury) Renal insufficiency Elevated erythrocyte sedimentation rate Obesity (BMI 30-39.9) Hyponatremia Diabetic foot ulcer Diabetic foot infection Costal chondritis Fungal ear infection Sinusitis Bradycardia Dizziness Angina pectoris Typical angina Medication adverse effect Flank pain, acute Stable angina HHD (hypertensive heart disease) Diabetes CAD (coronary artery disease) Surgical History History of transmetatarsal amputation of right foot History of transmetatarsal amputation of right foot Presence of stent in coronary artery History of partial ray amputation of second toe of left foot Status post foot surgery History of partial amputation of toe Stented coronary artery Family History Other No significant family history Social History (Updated 01/15/24 @ 10:43 by Marlo Fuller RN) Smoking Status: Unknown if ever smoked second hand exposure: No alcohol intake: never substance use type: denies use current occupational status: disabled Travel in the last 8 weeks: None household members: other housing: skilled nursing marital status: current occupational exposures/hazards: No caffeine: Yes ROS Obtained: Yes All systems reviewed & no additional complaints except as documented Physical Exam General General appearance: alert Respiratory Respiratory exam: Present normal lung sounds bilaterally Cardiovascular Cardiovascular exam: Present regular rate Extremities Exam Extremities exam: Present other (Over the right foot there is a ulceration over the plantar aspect about 3 x 3 cm with erythema and swelling and warmth extending over the medial aspect of the foot over the metatarsal phalangeal joint involving the subcutaneous tissue and muscle with purulent debris and erythema) Neurological Exam Neurological exam: Present alert and oriented X3 Medical Decision Making Russell Inquiry Pt receiving controlled substance: No Vital Signs: 02/04/24 10:59 02/04/24 11:31 02/04/24 12:00 Temperature 98.4 F Temperature Source Oral Pulse Rate 90 87 Pulse Rate [Radial] 96 H Respiratory Rate 18 Blood Pressure 144/66 H 122/54 L Blood Pressure [Right Arm] 126/72 Blood Pressure Mean 92 76 Blood Pressure Mean [Right Arm] 90 Blood Pressure Source [Right Arm] Automatic Cuff Blood Pressure Position [Right Arm] Sitting 02 Sat by Pulse Oximetry 98 95 95 Oxygen Delivery Method Room Air Room Air Room Air Lab Data Lab results reviewed: Yes I reviewed the patient's lab results. Lab Results 02/04/24 11:05: WBC 17.6 H, RBC 3.07 L, Hgb 10.0 L, Hct 30.8 L, MCV 100.5 H, MCH 32.7 H, MCHC 32.6, RDW 14.2, Plt Count 294, MPV 8.2, Neut % (Auto) 85.0 H, Lymph % (Auto) 6.4 L, [place] % (Auto) 8.0, Eos % (Auto) 0.3, Baso % (Auto) 0.3, Neut # (Auto) 15.0 H, Lymph # (Auto) 1.1, [place] # (Auto) 1.4 H, Eos # (Auto) 0.1, Baso # (Auto) 0.1, Sodium 126 L, Potassium 3.7, Chloride 93 L, Carbon Dioxide 24, Anion Gap 12.7, BUN 10, Creatinine 0.80, Estimated Creat Clear 105, Estimated GFR 97, Est GFR ( Amer) 117, Glucose 107 H, Lactate 2.5 H, Calcium 8.0 L, Total Bilirubin 1.4 H, AST 44, ALT 36, Alkaline Phosphatase 69, C-Reactive Protein 305.9 H, Total Protein 7.3, Albumin 3.5, Globulin 3.8 H, Albumin/Globulin Ratio 0.9 L 02/04/24 11:05 02/04/24 11:05 Orders (Tests/Meds): ED MEDICATIONS Generic Name Dose Route Start Last Admin Trade Name Freq PRN Reason Stop Dose Admin Piperacillin Sod/Tazobactam 100 mls @ 200 mls/hr 02/04/24 12:00 02/04/24 11:55 Sod 4.5 gm/ Sodium Chloride IV 02/14/24 11:59 200 mls/hr Q6H MED Administration Vancomycin/PEG/NADA/Lysine/Water 1.75 gm in 350 mls @ 175 mls/hr 02/04/24 12:00 Vancomycin 1.75gm/350ml (Peg) Premix IV 02/04/24 13:59 ONCE ONE Lactated Ringer's 1,910 mls @ 955 mls/hr 02/04/24 12:44 Lactated Ringer's 1000 Ml Bag 30 ml/kg infuse over 2 hr (1910 ml) 02/04/24 14:43 IV .Q2H ONE Discontinued Medications Generic Name Dose Route Start Last Admin Trade Name Freq PRN Reason Stop Dose Admin Miscellaneous 1 each 02/04/24 12:00 02/04/24 12:12 Vancomycin Consult Request NOTAPPLIC 03/05/24 11:59 1 each CONSULT PHARMACY MED Administration ORDERS Category Date Time Status CT foot RT w con Stat Cat Scan 02/04/24 12:38 Ordered CXR --portable [XR chest portable] Stat Exams 02/04/24 12:39 Ordered Foot XR right minimum 3 views [XR foot RT min 3V] Stat Exams 02/04/24 11:46 Taken CRP [C-Reactive Protein] Stat Lab 02/04/24 11:05 Completed Complete Blood Count Auto Diff Stat Lab 02/04/24 11:05 Results Comprehensive Metabolic Panel Stat Lab 02/04/24 11:05 Completed ESR [Erythrocyte Sedimentation Rate] Stat Lab 02/04/24 11:05 Received Lactic Acid Stat Lab 02/04/24 11:05 Completed PT/PTT Stat Lab 02/04/24 11:05 Received Blood Culture Stat Micro 02/04/24 11:35 Received Wound Culture and Gram Stain Stat Micro 02/04/24 11:30 Received Tissue Perfus/Sepsis Re-Eval Sepsis Re-Evaluation Performed: Yes Date Performed: 02/04/24 Time Performed: 12:46 Medical Decision Narrative: 64-year-old nontoxic-appearing gentleman presenting today with a worsening diabetic ulcer that appears to be infected with surrounding cellulitis significant soft tissue edema and warmth and some deep tissue involvement. Wound culture blood culture have been sent vancomycin and Zosyn have been initiated. Plain films will be sent for evaluation of subcutaneous gas versus advanced osteomyelitis. I spoke with her railroad signal technician Dr. Hung who will evaluate the patient patient will need to be admitted for IV antibiotics and possible sugical intervention including debridement. Reassessment 1246 I railroad signal technician evaluated the patient like to take the patient to the operating room. Plain film of the foot performed to person interpreted shows no subcutaneous gas or advanced osteomyelitis noncontrasted CT scan has been ordered for further preoperative planning. Cup Trimming Machine Operator also would like for cardiology to see the patient for preoperative clearance I spoke with Dr. Roa who will admit the patient to hospital medicine for further evaluation and management. Patient does meet sepsis criteria IV fluids have been administered vancomycin and Zosyn have been ordered and administered. Patient has hyponatremia and secondary evidence of possible necrotizing soft tissue infection. He may require amputation which he is aware of. Patient was admitted in stable but guarded condition. Critical Care Critical Care Time Critical Care Time: Yes Attestation: On 02/04/24, the high probability of a clinically significant, sudden or life threatening deterioration of the following system(s) required my full and direct attention, intervention and personal management. The time I documented below is in addition to time spent performing reported procedures but includes the following listed in this critical care notation. Total Time Total Critical Care Time: 35
[2024-02-04] MEDS: PIPERACILLIN/TAZO 4.5 GM in 0.9 % SODIUM CHLORIDE 100 ML IV ×2 (11:55→17:27)
[2024-02-04 12:01] LABS: C-Reactive Protein 305.9 mg/L (0-4)
[2024-02-04 12:03] LABS: MANUAL DIFFERENTIAL MANUAL DIFFERENTIAL (MANUAL DIFF)
[2024-02-04] MEDS: VANCOMYCIN CONSULT REQUEST 1 EACH NOTAPPLIC (12:12)
--- NOTE | 2024-02-04 12:38 | CT_ITS ---
FINAL REPORT TECHNIQUE: Thin section axial CT images with coronal and sagittal reformats were performed after the administration of IV contrast. This study was performed with techniques to keep radiation doses as low as reasonably achievable (ALARA). Individualized dose reduction techniques using automated exposure control or adjustment of mA and/or kV according to the patient''s size were employed. CLINICAL HISTORY: per op planning, COUGH, SOA, DIABETIC COMPARISON: None FINDINGS: There is no evidence of fracture. No acute bony erosion is seen. There are mild degenerative changes. Multifocal areas of soft tissue air are noted, greatest involving the medial aspect of the foot. There is soft tissue ulcer seen medial to the 1st MTP. There is widespread soft tissue edema or cellulitis. IMPRESSION: No convincing osteomyelitis. MRI may be a more sensitive exam. Soft tissue air. Widespread soft tissue edema or cellulitis. Reviewed, Interpreted and Dictated by Ishmael Suarez III, MD Transcribed by Della Manley Authenticated and [facility]
--- NOTE | 2024-02-04 12:39 | XR_ITS ---
FINAL REPORT CLINICAL HISTORY: pre op COMPARISON: 08/25/2022 FINDINGS: SINGLE-VIEW CHEST There is cardiomegaly with pulmonary vascular congestion, worse. The mediastinum is normal. There are mild bibasilar opacities, favor atelectasis. There is no pneumothorax. IMPRESSION: Worsening pulmonary vascular congestion. Reviewed, Interpreted and Dictated by Ishmael Suarez III, MD Transcribed by Maya Hopper Authenticated and [facility]
--- NOTE | 2024-02-04 12:44 | PC.NURSE ---
HS aware of admission
[2024-02-04] MEDS: VANCOMYCIN/WATER FOR INJ (PEG) 1.75 GM/350 ML PIGGYBACK IV (12:46)
[2024-02-04 12:51] LABS: Activated Partial Thrombo Time 32.7 seconds (22.8-30.6); INR 1.07 (0.9-1.1); Prothrombin Time 11.9 seconds (10.1-12.5)
--- NOTE | 2024-02-04 12:58 | PC.NURSE ---
Pt returned to room from RAD
--- NOTE | 2024-02-04 13:00 | ECG_ITS ---
APPROVED REPORT Exam: Resting ECG HR:92 bpm ECG Measurements Heart Rate 92 AXES WI 171 P 62 QRSd 85 QRS 58 QT 347 T 51 QTc 396 Conclusion SINUS RHYTHM NORMAL ECG UNCONFIRMED REPORT Electronically signed by : Fabián Jeter, 02/07/2024 23:46:11
--- NOTE | 2024-02-04 13:00 | PC.NURSE ---
Dayanara SOTELO, at BS for pt eval
--- NOTE | 2024-02-04 13:04 | P.CONCA_ITS ---
History of Present Illness History of Present Illness Consult date: 02/04/24 Requesting physician: Davey Alvarenga Consult reason: pre-op evaluation Chief complaint: Needs podiatry surgery urgently, Known CAD Additional Medical History:: 1. Coronary artery disease A. History of coronary artery stenting, per patient the last stent was in 2000 B. [facility], 04/2017, YANIQUE to distal codominate OM and PDA C. [facility], 05/2017, 09/2017 and 02/2020 with recommendation for medical therapy. ANGIOGRAPHIC RESULTS The left main artery Normal The left anterior descending artery As proximal 10 to 20% stenoses followed by a mid vessel 30% stenosis followed by mid vessel stent which is widely patent with minimal concentric in-stent restenosis. There is an additional 30% concentric stenosis in the midsegment of the LAD approximately 2 mm diameter vessel. There is an additional stent in the distal segment which has 50 to 60% in-stent restenosis followed by an additional concentric 60 to 70% stenosis in a vessel less than 2 mm in diameter. Distally the LAD has 70 to 80% stenosis 2 cm proximal to its terminal aspect The circumflex artery Is a dominant vessel and has mild 10 to 20% proximal stenosis. A large third obtuse marginal artery has a proximal concentric 30 to 40% stenosis followed by distal 40 and 50% stenoses. The terminal obtuse marginal artery has a stent in its proximal through mid segment which has mild concentric in-stent restenosis The right coronary artery Is a nondominant yet still large vessel with a stent in the proximal to mid vessel segment with 10 to 20% concentric in-stent restenosis. The mid right coronary artery has a gap without stents which is widely patent. This is followed by stent which extends into the proximal posterior descending artery and extends into the mid segment. This contiguous portion of the stents are widely patent with one area of concentric in-stent restenosis in the body of the distal right coronary artery. The posterior descending artery is widely patent The MOTA ventriculogram reveals Normal 65% The left ventricular end-diastolic pressure 10 mmHg IMPRESSION Coronary artery disease as described above Normal ejection fraction Normal left ventricular end-diastolic pressure PLAN 1. I strongly favor medical management. Despite the moderate to severe disease in the mid to distal LAD this is not great anatomy for additional stenting inside the in-stent restenotic lesion. This vessel is patent with SATISH-3 flow and patient should be managed medically and less angina pectoris becomes absolutely intolerable and recalcitrant. Only then would I consider revascularizing the mid to distal LAD. 2. Maximize antianginal medication 3. Tete 55 Electronically signed by : Heladio Gavin, 03/14/2020 11:13:45 2. Diabetes mellitus, treated for about 10 years 3. Hypertension A. Echo, 11/07/2023, normal biventricular systolic function. Mild AI/MR. 4. Hyperlipidemia 5. History of CVA/seizures with new subdural hematoma (noted on CT of head after fall 07/2022) -head CT, 11/2023 no new findings. 6. PAD A. History of partial left foot second toe amputation in past History of present illness: Patient is a 64-year-old [employer] resident sent in today for worsening of his wound over his right foot. 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 [facility]PC also no scot that he may be altered but according to our nurse in the ED he is at his mental baseline. Patient is awake alert answering questions to me and tells me that he has no other complaints does not have any significant pain fevers etc. 64-year-old nontoxic-appearing gentleman presenting today with a worsening diabetic ulcer that appears to be infected with surrounding cellulitis significant soft tissue edema and warmth and some deep tissue involvement. Wound culture blood culture have been sent vancomycin and Zosyn have been initiated. Plain films will be sent for evaluation of subcutaneous gas versus advanced osteomyelitis. I spoke with her renal case manager Dr. Hung who will evaluate the patient patient will need to be admitted for IV antibiotics and possible sugical intervention including debridement. Reassessment 1246 I renal case manager evaluated the patient like to take the patient to the operating room. Plain film of the foot performed to person interpreted shows no subcutaneous gas or advanced osteomyelitis noncontrasted CT scan has been ordered for further preoperative planning. Pediatric Medical Assistant also would like for cardiology to see the patient for preoperative clearance I spoke with Dr. Roa who will admit the patient to hospital medicine for further evaluation and management. Patient does meet sepsis criteria IV fluids have been administered vancomycin and Zosyn have been ordered and administered. Patient has hyponatremia and secondary evidence of possible necrotizing soft tissue infection. He may require amputation which he is aware of. Patient was admitted in stable but guarded condition. The above per Dr. Jeter in the ER. Patient was seen in the ER for preop risk assessment. Due to his known prior coronary artery disease including stenting the last catheterization in 2019 showing small diseased vessels not amenable to intervention he is high risk but is stable. He does relate intermittent chest pain but no increase in frequency, strength or duration. EKG today is sinus rhythm with no acute ST segment changes. [facility] Disclaimer: The information contained in this section may have been updated after the patient was seen, as this information can be updated by other users. Medical History (Updated 02/04/24 @ 13:12 by ASHLEIGH Bellamy) Fatigue Dyspnea Abnormal electrocardiogram [ECG] [EKG] Hyponatremia Angina at rest Lower extremity edema Obesity, Class II, BMI 35-39.9, isolated (see actual BMI) Coronary artery disease Diabetic neuropathy Hypertensive heart disease without heart failure Coronary artery disease Diabetic neuropathy Diabetic ulcer of left foot Fungal ear infection Noncompliance Osteomyelitis of second toe of right foot Other hyperlipidemia Renal insufficiency Sepsis with acute respiratory failure Systemic inflammatory response syndrome (SIRS) Typical angina Impacted cerumen, bilateral Other asthma Right chronic otitis media Healed perforated eardrum Perforated tympanic membrane of both ears on examination Foreign body in right ear Impacted cerumen of left ear Acute right otitis media Tinnitus Hearing Loss Complicated urinary tract infection Acute urinary retention Elevated erythrocyte sedimentation rate Hemoptysis Acute subdural hematoma Epidural hematoma Finger infection Fall Diarrhea Suppurative tenosynovitis of flexor tendon Abscess of finger of left hand Concussion without loss of consciousness Weakness Shortness of breath Other acute osteomyelitis, left ankle and foot Postoperative wound dehiscence Cellulitis Left leg cellulitis Closed head injury Fall Unstable angina Abscess Laceration Atypical chest pain Onychodystrophy Postoperative edema Diabetic polyneuropathy associated with type 2 diabetes mellitus Abscess of left leg Cellulitis of left lower leg SIRS (systemic inflammatory response syndrome) Fever Sepsis Cellulitis Bacteremia Cellulitis of left foot Osteomyelitis of great toe of left foot Diabetic ulcer of left great toe IFEOMA (acute kidney injury) Renal insufficiency Elevated erythrocyte sedimentation rate Obesity (BMI 30-39.9) Hyponatremia Diabetic foot ulcer Diabetic foot infection Costal chondritis Fungal ear infection Sinusitis Bradycardia Dizziness Angina pectoris Typical angina Medication adverse effect Flank pain, acute Stable angina HHD (hypertensive heart disease) Diabetes CAD (coronary artery disease) Surgical History History of transmetatarsal amputation of right foot History of transmetatarsal amputation of right foot Presence of stent in coronary artery History of partial ray amputation of second toe of left foot Status post foot surgery History of partial amputation of toe Stented coronary artery Family History Other No significant family history Social History (Updated 01/15/24 @ 10:43 by Marlo Fuller RN) Smoking Status: Unknown if ever smoked second hand exposure: No alcohol intake: never substance use type: denies use current occupational status: disabled Travel in the last 8 weeks: None household members: other housing: correction marital status: current occupational exposures/hazards: No caffeine: Yes Review of Systems Review of Systems Review of systems:: pertinent systems reviewed and negative unless documented below *Cardiovascular Cardiovascular: Reports as per HPI, Reports chest pain and Reports dyspnea on exertion *Respiratory Respiratory: Denies cough and Reports dyspnea on exertion Exam Data for Last 24 hours Vital signs and Labs for Last 24 Hours: Temp Pulse Resp BP Pulse Ox O2 Del Method 98.4 F 87 18 122/54 L 95 Room Air 02/04/24 10:59 02/04/24 12:00 02/04/24 10:59 02/04/24 12:00 02/04/24 12:00 02/04/24 12:00 Laboratory Results - last 24 hr 02/04/24 11:05: WBC 17.6 H, RBC 3.07 L, Hgb 10.0 L, Hct 30.8 L, MCV 100.5 H, MCH 32.7 H, MCHC 32.6, RDW 14.2, Plt Count 294, MPV 8.2, Neut % (Auto) 85.0 H, Lymph % (Auto) 6.4 L, [place] % (Auto) 8.0, Eos % (Auto) 0.3, Baso % (Auto) 0.3, Neut # (Auto) 15.0 H, Lymph # (Auto) 1.1, [place] # (Auto) 1.4 H, Eos # (Auto) 0.1, Baso # (Auto) 0.1, PT 11.9, INR 1.07, APTT 32.7 H, Sodium 126 L, Potassium 3.7, Chloride 93 L, Carbon Dioxide 24, Anion Gap 12.7, BUN 10, Creatinine 0.80, Estimated Creat Clear 105, Estimated GFR 97, Est GFR ( Amer) 117, Glucose 107 H, Lactate 2.5 H, Calcium 8.0 L, Total Bilirubin 1.4 H, AST 44, ALT 36, Alkaline Phosphatase 69, C-Reactive Protein 305.9 H, Total Protein 7.3, Albumin 3.5, Globulin 3.8 H, Albumin/Globulin Ratio 0.9 L I & O for Last 24 hours: Intake & Output 02/02/24 02/03/24 02/04/24 02/05/24 11:59 11:59 11:59 11:59 Weight 225 lb Constitutional Constitutional: no acute distress *Routine Respiratory Exam Respiratory: Present decreased breath sounds; Absent rales, rhonchi or wheezes *Routine Cardiovascular Exam Cardiovascular: Present RRR; Absent murmur, gallop or rubs *Routine Extremities Exam Extremities: Present edema Comments: 3 toes amputated on left foot *Routine Neurological Exam Neurological: Present alert Meds Home Medications and Allergies Home Medications ?Medication ?Instructions ?Recorded ?Confirmed ?Type ranolazine 1,000 mg 1,000 mg PO BID ANGINA 08/30/20 02/04/24 History tablet,extended release,12 hr albuterol sulfate 90 mcg/actuation 2 puff inhalation QID PRN 08/25/22 02/04/24 History aerosol inhaler SOA,wheeze tamsulosin 0.4 mg capsule 0.4 mg PO HS 01/10/23 02/04/24 History aspirin 81 mg chewable tablet 81 mg PO DAILY 01/24/23 02/04/24 History (Aspirin Childrens) citalopram 20 mg tablet 20 mg PO DAILY 01/24/23 02/04/24 History fluticasone propionate 50 1 spray intranasal BID 01/24/23 02/04/24 History mcg/actuation nasal spray,suspension acetaminophen 500 mg tablet 500 mg PO Q4H PRN Pain 05/07/23 02/04/24 History (Acetaminophen Extra Strength) atorvastatin 80 mg tablet 80 mg PO DAILY Cholesterol #90 tabs 05/07/23 02/04/24 Rx bisacodyl 10 mg rectal suppository [address] DAILY PRN bowel care 05/07/23 02/04/24 History (Laxative (bisacodyl)) ferrous sulfate 324 mg (65 mg 324 mg PO DAILY Supplement 05/07/23 02/04/24 History iron) tablet,delayed release fluticasone furoate 100 1 inh inhalation DAILY 05/07/23 02/04/24 History mcg-vilanterol 25 mcg/dose inhalation powder (Breo Ellipta) lactulose 10 gram/15 mL oral 20 g PO DAILY PRN bowel care 05/07/23 02/04/24 History solution ondansetron HCl 4 mg tablet 4 mg PO Q6H PRN nausea and vomiting 05/07/23 02/04/24 History pantoprazole 40 mg tablet,delayed 40 mg PO BID GERD 05/07/23 02/04/24 History release quetiapine 50 mg tablet 50 mg PO QAM 05/07/23 02/04/24 History quetiapine 50 mg tablet (Seroquel) 100 mg PO HS 05/07/23 02/04/24 History sennosides 8.6 mg-docusate sodium 2 tab-cap PO BID costipation 05/07/23 02/04/24 History 50 mg tablet (Senexon-S) pen needle,diabetic dual safty 30 #100 ea 08/15/23 01/16/24 History gauge x 3/16 (BD AutoShield Duo Pen Needle) metformin 1,000 mg tablet 1,000 mg PO BID #180 tabs 09/10/23 02/04/24 Rx potassium chloride 10 mEq 10 meq PO BID #180 caps 12/10/23 02/04/24 Rx capsule,extended release amlodipine 5 mg tablet (Norvasc) 5 mg PO DAILY #90 tabs 01/07/24 02/04/24 Rx insulin aspar prot-insulin aspart 35 unit SQ BID Diabetes 01/07/24 02/04/24 History 100 unit/mL (70-30) subcutaneous pen (Novolog Mix 70-30FlexPen U-100) divalproex 250 mg tablet,delayed 250 mg PO BID 01/08/24 02/04/24 History release loperamide 2 mg capsule 2 mg PO DAILY 01/08/24 02/04/24 History chlorhexidine gluconate 4 % topical 01/16/24 01/16/24 History topical liquid (Betasept Surgical Scrub) insulin aspar prt-insulin aspart SQ 01/16/24 01/16/24 History 100 unit/mL (70-30) subcutaneous soln insulin syringe-needle U-100 0.5 #10 ea 01/16/24 01/16/24 History mL 29 gauge x 1/2 insulin syringe-needle U-100 1 mL #10 ea 01/16/24 01/16/24 History 29 gauge x 1/2 New Prescriptions to Start Prescriptions: Allergies Allergy/AdvReac Type Severity Reaction Status Date / Time morphine [MORPHINE] Allergy Severe I-ITCHING Verified 01/16/24 13:17 influenza virus vaccine qs Allergy Unknown Verified 01/16/24 13:17 2018- (6 mos and up) allergy [From Fluarix Quad reaction (PF)] Assessment and Plan *Assessment and plan (1) Cellulitis of foot, right: Status: Acute Category: Medical Code(s): L03.115 - Cellulitis of right lower limb (2) Diabetic ulcer of foot associated with diabetes mellitus due to underlying condition, with muscle involvement without evidence of necrosis: Status: Acute Qualifiers: Diabetic foot ulcer location: unspecified part of foot Laterality: right Qualified Code(s): E08.621 - Diabetes mellitus due to underlying condition with foot ulcer; L97.515 - Non-pressure chronic ulcer of other part of right foot with muscle involvement without evidence of necrosis Category: Medical Code(s): E08.621 - Diabetes mellitus due to underlying condition with foot ulcer; L97.505 - Non-pressure chronic ulcer of other part of unspecified foot with muscle involvement without evidence of necrosis (3) Sepsis: Status: Acute Qualifiers: Sepsis type: sepsis due to unspecified organism Sepsis acute organ dysfunction status: without acute organ dysfunction Qualified Code(s): A41.9 - Sepsis, unspecified organism Category: Medical Code(s): A41.9 - Sepsis, unspecified organism (4) Recurrent falls: Problem Comment: Recurrent falls since 2020. History of syncope and chronic dizziness. Status: Chronic Category: Medical Code(s): R29.6 - Repeated falls (5) Coronary artery disease: Status: Acute Qualifiers: Coronary Disease-Associated Artery/Lesion type: [place] artery [place] vs. transplanted heart: [place] heart Associated angina: with stable angina Qualified Code(s): I25.118 - Atherosclerotic heart disease of [place] coronary artery with other forms of angina pectoris Category: Medical Code(s): I25.10 - Atherosclerotic heart disease of [place] coronary artery without angina pectoris (6) Chest pain: Status: Acute Qualifiers: Chest pain type: precordial pain Qualified Code(s): R07.2 - Precordial pain Category: Medical Code(s): R07.9 - Chest pain, unspecified (7) Diabetes mellitus: Status: Acute Qualifiers: Diabetes mellitus type: type 1 Diabetes mellitus complication status: with other specified complication Qualified Code(s): E10.69 - Type 1 diabetes mellitus with other specified complication Category: Medical Code(s): E11.9 - Type 2 diabetes mellitus without complications (8) Diabetic neuropathy: Status: Acute Qualifiers: Diabetes mellitus type: type 2 Diabetes mellitus complication detail: diabetic polyneuropathy Qualified Code(s): E11.42 - Type 2 diabetes mellitus with diabetic polyneuropathy Category: Medical Code(s): E11.40 - Type 2 diabetes mellitus with diabetic neuropathy, unspecified (9) Obesity (BMI 30-39.9): Status: Chronic Category: Medical Code(s): E66.9 - Obesity, unspecified (10) HHD (hypertensive heart disease): Status: Chronic Qualifiers: Heart failure presence: without heart failure Qualified Code(s): I11.9 - Hypertensive heart disease without heart failure Category: Medical Code(s): I11.9 - Hypertensive heart disease without heart failure (11) HLD (hyperlipidemia): Status: Chronic Qualifiers: Hyperlipidemia type: mixed hyperlipidemia Qualified Code(s): E78.2 - M ixed hyperlipidemia Category: Medical Code(s): E78.5 - Hyperlipidemia, unspecified (12) Chronic hyponatremia: Status: Acute Category: Medical Code(s): E87.1 - Hypo-osmolality and hyponatremia Plan 1. Cellulitis of right foot in diabetic with evidence of sepsis -planning for podiatry surgery today 2. CAD with chronic stable angina. -prior coronary stenting with residual CAD in small vessels not amenable to further intervention. Medical therapy. -Continue aspirin, amlodipine and ranolazine. 3. DM -On oral meds and insulin 4. HTN -Controlled on current medications 5. HLD -On statin therapy 6. chronic hyponatremia in the 1 26-1 30 range 7. Obesity 8. History of CVA/seizures/subdural hematomas -Unreliable historian Patient is at increased cardiovascular risk to proceed with surgery but he is stable from cardiovascular standpoint. There is no intervention that would reduce his risk for surgery at this time. Continue anti-anginal medications in the form of amlodipine 5 mg daily and ranolazine 1000 mg twice daily.
--- NOTE | 2024-02-04 13:05 | PC.NURSE ---
giovanna caballero from cardiology cleared pt from there stand point for surgery
--- NOTE | 2024-02-04 13:07 | EXP.POD.CONS ---
History of Present Illness *Admission Date: 02/04/24 *Reason for visit:: Rigth DFU, infection *History of present illness: HPI narrative: Patient is a 64-year-old group home resident sent in today for worsening of his wound over his right foot. One of our nurses who works at his group home knows him well and has been evaluating this wound chronically and she states that the plantar aspect of his wound was there last week but the medial aspect of the redness and swelling is new over the last few days. group home also noted that he may be altered but according to our nurse in the ED he is at his mental baseline. Patient is awake alert answering questions to me and tells me that he has no other complaints does not have any significant pain fevers etc. Podiatry Consult: Patient is a 64M who presents from [facility] with complaints of worsening right foot ulcer and infection. Patient reports a decreased appetite. He has not eaten today. He denies vomiting, fever/chills. Reports occasional shortness of breath. Pt is following with [facility] cardiology. Card consulted for cardiac clearance prior to surgery. Due to significant soft tissue infection and suspected gas on the plain film x-ray, CT pending will plan for OR today for I&D and debridement of nonviable soft tissue and bone. [facility] Disclaimer: The information contained in this section may have been updated after the patient was seen, as this information can be updated by other users. Medical History (Updated 02/04/24 @ 16:53 by Darleen Flower DPM) Fatigue Dyspnea Abnormal electrocardiogram [ECG] [EKG] Hyponatremia Angina at rest Lower extremity edema Obesity, Class II, BMI 35-39.9, isolated (see actual BMI) Coronary artery disease Diabetic neuropathy Hypertensive heart disease without heart failure Coronary artery disease Diabetic neuropathy Diabetic ulcer of left foot Fungal ear infection Noncompliance Osteomyelitis of second toe of right foot Other hyperlipidemia Renal insufficiency Sepsis with acute respiratory failure Systemic inflammatory response syndrome (SIRS) Typical angina Impacted cerumen, bilateral Other asthma Right chronic otitis media Healed perforated eardrum Perforated tympanic membrane of both ears on examination Foreign body in right ear Impacted cerumen of left ear Acute right otitis media Tinnitus Hearing Loss Complicated urinary tract infection Acute urinary retention Elevated erythrocyte sedimentation rate Hemoptysis Acute subdural hematoma Epidural hematoma Finger infection Fall Diarrhea Suppurative tenosynovitis of flexor tendon Abscess of finger of left hand Concussion without loss of consciousness Weakness Shortness of breath Other acute osteomyelitis, left ankle and foot Postoperative wound dehiscence Cellulitis Left leg cellulitis Closed head injury Fall Unstable angina Abscess Laceration Atypical chest pain Onychodystrophy Postoperative edema Diabetic polyneuropathy associated with type 2 diabetes mellitus Abscess of left leg Cellulitis of left lower leg SIRS (systemic inflammatory response syndrome) Fever Sepsis Cellulitis Bacteremia Cellulitis of left foot Osteomyelitis of great toe of left foot Diabetic ulcer of left great toe IFEOMA (acute kidney injury) Renal insufficiency Elevated erythrocyte sedimentation rate Obesity (BMI 30-39.9) Hyponatremia Diabetic foot ulcer Diabetic foot infection Costal chondritis Fungal ear infection Sinusitis Bradycardia Dizziness Angina pectoris Typical angina Medication adverse effect Flank pain, acute Stable angina HHD (hypertensive heart disease) Diabetes CAD (coronary artery disease) Surgical History History of transmetatarsal amputation of right foot History of transmetatarsal amputation of right foot Presence of stent in coronary artery History of partial ray amputation of second toe of left foot Status post foot surgery History of partial amputation of toe Stented coronary artery Family History Other No significant family history Social History (Updated 02/04/24 @ 14:10 by Sandra Stevens, RN) Smoking Status: Unknown if ever smoked second hand exposure: No alcohol intake: never substance use type: denies use current occupational status: disabled Travel in the last 8 weeks: None household members: other housing: group home marital status: current occupational exposures/hazards: No caffeine: Yes Review of Systems Review of Systems Review of systems:: pertinent systems reviewed and negative unless documented below Constitutional Constitutional: Reports system reviewed and no additional complaints, except as documented Eyes Eyes: Reports system reviewed and no additional complaints, except as documented ENT Ears, Nose, Mouth, and Throat: Reports system reviewed and no additional complaints, except as documented *Cardiovascular Cardiovascular: Reports system reviewed and no additional complaints, except as documented and Reports pedal edema *Respiratory Respiratory: Reports system reviewed and no additional complaints, except as documented *Gastrointestinal Gastrointestinal: Reports system reviewed and no additional complaints, except as documented *Genitourinary Genitourinary: Reports system reviewed and no additional complaints, except as documented *Musculoskeletal Musculoskeletal: Reports system reviewed and no additional complaints, except as documented Integumentary/Breasts Skin/Breast: Reports system reviewed and no additional complaints, except as documented *Neurologic Neurologic: Reports system reviewed and no additional complaints, except as documented and Reports paresthesias Psychiatric Psychiatric: Reports system reviewed and no additional complaints, except as documented Endocrine Endocrine: Reports system reviewed and no additional complaints, except as documented Hematologic/Lymphatic Hematologic/Lymphatic: Reports system reviewed and no additional complaints, except as documented Allergic/Immunologic Allergic/Immunologic: Reports system reviewed and no additional complaints, except as documented Meds Home Medications and Allergies Home Medications ?Medication ?Instructions ?Recorded ?Confirmed ?Type ranolazine 1,000 mg 1,000 mg PO BID ANGINA 08/30/20 02/04/24 History tablet,extended release,12 hr albuterol sulfate 90 mcg/actuation 2 puff inhalation QID PRN 08/25/22 02/04/24 History aerosol inhaler SOA,wheeze tamsulosin 0.4 mg capsule 0.4 mg PO HS 01/10/23 02/04/24 History aspirin 81 mg chewable tablet 81 mg PO DAILY 01/24/23 02/04/24 History (Aspirin Childrens) citalopram 20 mg tablet 20 mg PO DAILY 01/24/23 02/04/24 History fluticasone propionate 50 1 spray intranasal BID 01/24/23 02/04/24 History mcg/actuation nasal spray,suspension acetaminophen 500 mg tablet 500 mg PO Q4H PRN Pain 05/07/23 02/04/24 History (Acetaminophen Extra Strength) atorvastatin 80 mg tablet 80 mg PO DAILY Cholesterol #90 tabs 05/07/23 02/04/24 Rx bisacodyl 10 mg rectal suppository 10 mg FL DAILY PRN bowel care 05/07/23 02/04/24 History (Laxative (bisacodyl)) ferrous sulfate 324 mg (65 mg 324 mg PO DAILY Supplement 05/07/23 02/04/24 History iron) tablet,delayed release fluticasone furoate 100 1 inh inhalation DAILY 05/07/23 02/04/24 History mcg-vilanterol 25 mcg/dose inhalation powder (Breo Ellipta) lactulose 10 gram/15 mL oral 20 g PO DAILY PRN bowel care 05/07/23 02/04/24 History solution ondansetron HCl 4 mg tablet 4 mg PO Q6H PRN nausea and vomiting 05/07/23 02/04/24 History pantoprazole 40 mg tablet,delayed 40 mg PO BID GERD 05/07/23 02/04/24 History release quetiapine 50 mg tablet 50 mg PO QAM 05/07/23 02/04/24 History quetiapine 50 mg tablet (Seroquel) 100 mg PO HS 05/07/23 02/04/24 History sennosides 8.6 mg-docusate sodium 2 tab-cap PO BID costipation 05/07/23 02/04/24 History 50 mg tablet (Senexon-S) pen needle,diabetic dual safty 30 #100 ea 08/15/23 01/16/24 History gauge x 3/16 (BD AutoShield Duo Pen Needle) metformin 1,000 mg tablet 1,000 mg PO BID #180 tabs 09/10/23 02/04/24 Rx potassium chloride 10 mEq 10 meq PO BID #180 caps 12/10/23 02/04/24 Rx capsule,extended release amlodipine 5 mg tablet (Norvasc) 5 mg PO DAILY #90 tabs 01/07/24 02/04/24 Rx insulin aspar prot-insulin aspart 35 unit SQ BID Diabetes 01/07/24 02/04/24 History 100 unit/mL (70-30) subcutaneous pen (Novolog Mix 70-30FlexPen U-100) divalproex 250 mg tablet,delayed 250 mg PO BID 01/08/24 02/04/24 History release loperamide 2 mg capsule 2 mg PO DAILY 01/08/24 02/04/24 History chlorhexidine gluconate 4 % topical 01/16/24 01/16/24 History topical liquid (Betasept Surgical Scrub) insulin aspar prt-insulin aspart SQ 01/16/24 01/16/24 History 100 unit/mL (70-30) subcutaneous soln insulin syringe-needle U-100 0.5 #10 ea 01/16/24 01/16/24 History mL 29 gauge x 1/2 insulin syringe-needle U-100 1 mL #10 ea 01/16/24 01/16/24 History 29 gauge x 1/2 New Prescriptions to Start Prescriptions: Allergies Allergy/AdvReac Type Severity Reaction Status Date / Time morphine [MORPHINE] Allergy Severe I-ITCHING Verified 01/16/24 13:17 influenza virus vaccine qs Allergy Unknown Verified 01/16/24 13:17 2018-20 (6 mos and up) allergy [From Fluarix Quad [id number] reaction (PF)] Exam (Inpt) Vital signs and Labs for Last 24 Hours: Temp Pulse Resp BP Pulse Ox O2 Del Method 98.4 F 87 18 122/54 L 95 Room Air 02/04/24 10:59 02/04/24 12:00 02/04/24 10:59 02/04/24 12:00 02/04/24 12:00 02/04/24 12:00 Laboratory Results - last 24 hr 02/04/24 11:05: WBC 17.6 H, RBC 3.07 L, Hgb 10.0 L, Hct 30.8 L, MCV 100.5 H, MCH 32.7 H, MCHC 32.6, RDW 14.2, Plt Count 294, MPV 8.2, Neut % (Auto) 85.0 H, Lymph % (Auto) 6.4 L, Brantley % (Auto) 8.0, Eos % (Auto) 0.3, Baso % (Auto) 0.3, Neut # (Auto) 15.0 H, Lymph # (Auto) 1.1, Brantley # (Auto) 1.4 H, Eos # (Auto) 0.1, Baso # (Auto) 0.1, PT 11.9, INR 1.07, APTT 32.7 H, Sodium 126 L, Potassium 3.7, Chloride 93 L, Carbon Dioxide 24, Anion Gap 12.7, BUN 10, Creatinine 0.80, Estimated Creat Clear 105, Estimated GFR 97, Est GFR ( Amer) 117, Glucose 107 H, Lactate 2.5 H, Calcium 8.0 L, Total Bilirubin 1.4 H, AST 44, ALT 36, Alkaline Phosphatase 69, C-Reactive Protein 305.9 H, Total Protein 7.3, Albumin 3.5, Globulin 3.8 H, Albumin/Globulin Ratio 0.9 L I & O for Labs for Last 24 Hours: Intake & Output 02/02/24 02/03/24 02/04/24 02/05/24 11:59 11:59 11:59 11:59 Weight 225 lb Constitutional: Present no acute distress, obese, chronically ill appearing and disheveled Head: Present normocephalic Neck: Present normal inspection Respiratory: Present normal respiratory effort Comment:: Weakly palpable pedal pulses. Could be secondary to edema. GI: Present soft Rectal (male): Present deferred (male): Present deferred Extremities: Present normal inspection, full ROM and joint swelling (right foot); Absent normal capillary refill Skin: Present scars (left foot ) and wounds Comment:: Right foot has significant 2+ pitting edema. Diabetic foot ulcer noted to the subfirst metatarsal full-thickness and probes to the sesamoids. Ulcer ~4cm round noted to the medial aspect of the first MTPJ full-thickness to the level of the bone with purulent creamy drainage. Malodor and necrotic tissue present. Purulence also noted from the distal lateral phalanx. Warmth and erythema extending to the first metatarsal cuneiform joint. Neuro: Present Motor Function Intact, alert, awake and moves all extremities; Absent Sensory Function Intact Ankle: bilateral: swelling (pitting edema) Feet/Toes: left: amputation (L partial 1st ray, 2nd toe), right: erythema (distal medial foot), right: swelling (right foot), right: tenderness (hallux) and right: wound (right medial 1st MTPJ, sub 1st met) and bilateral: nail abnormalities and bilateral: onychomycosis Inspection: Present nail disorder, infection and ulceration Pulses: L posterior tibial pulse: diminished and R posterior tibial pulse: diminished CFT: dim: CFT Results Labs 02/04/24 11:05 02/04/24 11:05 Labs: Abnormal lab results 02/04/24 Range/Units 11:05 WBC 17.6 H (4.8-10.8) K/mm3 RBC 3.07 L (4.60-6.20) M/mm3 Hgb 10.0 L (14.1-18.0) g/dL Hct 30.8 L (42.0-52.0) % MCV 100.5 H (80-94) fl MCH 32.7 H (27.0-31.2) pg Neut % (Auto) 85.0 H (37.0-80.0) % Lymph % (Auto) 6.4 L (10-50) % Neut # (Auto) 15.0 H (1.8-7.8) K/mm3 Brantley # (Auto) 1.4 H (0.1-1.0) K/mm3 APTT 32.7 H (22.8-30.6) seconds Sodium 126 L (136-145) mmol/L Chloride 93 L (98-107) mmol/L Glucose 107 H (74-100) mg/dl Lactate 2.5 H (0.7-2.1) mmol/L Calcium 8.0 L (8.4-10.2) mg/dl Total Bilirubin 1.4 H (0.2-1.3) mg/dl C-Reactive Protein 305.9 H (0-4) mg/L Globulin 3.8 H (1.3-3.2) g/dL Albumin/Globulin Ratio 0.9 L (1.1-1.8) H & H 02/04/24 Range/Units 11:05 Hgb 10.0 L (14.1-18.0) g/dL Hct 30.8 L (42.0-52.0) % Coagulation 02/04/24 Range/Units 11:05 INR 1.07 (0.9-1.1) All other labs normal. Diagnostic results Ankle/Foot x-ray: report reviewed and image reviewed Ankle/Foot CT: report reviewed and image reviewed Assessment and Plan *Assessment and plan (1) Cellulitis of foot, right: Status: Acute Category: Medical Code(s): L03.115 - Cellulitis of right lower limb (2) Gas gangrene: Status: Acute Category: Medical Code(s): A48.0 - Gas gangrene (3) Sepsis: Status: Acute Qualifiers: Sepsis acute organ dysfunction status: without acute organ dysfunction Sepsis type: sepsis due to unspecified organism Qualified Code(s): A41.9 - Sepsis, unspecified organism Category: Medical Code(s): A41.9 - Sepsis, unspecified organism (4) Diabetic ulcer of right foot: Status: Acute Qualifiers: Diabetic foot ulcer location: other Diabetes mellitus type: type 2 Non-pressure ulcer stage: with bone involvement without evidence of necrosis Qualified Code(s): E11.621 - Type 2 diabetes mellitus with foot ulcer; L97.516 - Non-pressure chronic ulcer of other part of right foot with bone involvement without evidence of necrosis Category: Medical Code(s): E11.621 - Type 2 diabetes mellitus with foot ulcer; L97.519 - Non-pressure chronic ulcer of other part of right foot with unspecified severity (5) Obesity, Class II, BMI 35-39.9: Status: Acute Category: Medical Code(s): E66.9 - Obesity, unspecified Plan 02/04/24, labs: wbc 17.6, esr, crp 305.9 Right DFU, cellulitis: -discussed possibility of cellulitis, abscess, osteomyelitis -labs reviewed -CT reviewed, report pending: subcutaneous gas noted Patient is a 64-year-old diabetic male well-known to the podiatry service who currently resides at [facility]. Presents to the [facility] ER today with worsening diabetic foot ulcer and infection. New images were discussed with the patient. We discussed conservative versus surgical treatment options. We discussed conservative care including continued oral vs IV antibiotics and local wound care versus surgical incision and drainage. Patient understands that they could have wound healing complications including delayed healing and infection. We discussed that if the wound does not heal, it is possible that they may need further debridement. Patient understands if infection spreads into the bone, it may warrant proximal amputation and could result in further loss of digits, loss of partial foot or loss of leg. We discussed the risks and benefits in great detail. Other surgical risks include: prolonged pain and swelling, further infection requiring oral or IV antibiotics, delay in healing of soft tissue or bone, nerve or blood vessel damage, CRPS/RSD, DVT, anesthesia complications, and even . All questions answered. Patient verbalized understanding. Consent obtained. -Hospitalist team to admit -Podiatry will continue to consult and follow -NWB to [facility] -KADE abx: Robert Jones now -Plan for surgery today: Right foot irrigation and debridement of non viable soft tissue and bone, possible partial first ray amputation
[2024-02-04] MEDS: IOPAMIDOL-370 (76%);100ML BOTTLE 75 ML IV (13:12)
[2024-02-04] MEDS: SODIUM CHLORIDE 0.9% 10ML SYR (RAD ONLY) 10 ML IV (13:12)
--- NOTE | 2024-02-04 13:38 | PC.NURSE ---
pt is in gown and clothes placed in a belonging bag with label on it
[2024-02-04] MEDS: LACTATED RINGERS 1000ML 1,910 ML 955 ML IV (13:39)
--- NOTE | 2024-02-04 13:55 | SW/DCPLANNER ---
Addendum entered by Azeb Frias RN 02/07/24 11:43: Anticipate DC tomorrow with PICC and IV antibiotics. Scott aware. Addendum entered by Karen Butler 02/06/24 12:57: An w/ Scott Morales stated that patient can return over the weekend if medically stable for discharge. Original Note: This patient currently resides at [facility] level of care. I will continue to follow up w/ An from [place] until patient is medically stable for discharge.
[2024-02-04 13:58] LABS: Erythrocyte Sedimentation Rate 116 mm/hr (0-20)
[2024-02-04 14:05] LABS: Lymphocytes % 10 % (10-50); Macrocytosis 1+; Monocytes % 7 % (2-9); Neutrophils % 83 % (42-76); Platelet Estimate Normal; Total Cells Counted 100
--- NOTE | 2024-02-04 14:59 | EXP.ANES.CKL ---
[facility] Disclaimer: The information contained in this section may have been updated after the patient was seen, as this information can be updated by other users. Medical History Fatigue Dyspnea Abnormal electrocardiogram [ECG] [EKG] Hyponatremia Angina at rest Lower extremity edema Obesity, Class II, BMI 35-39.9, isolated (see actual BMI) Coronary artery disease Diabetic neuropathy Hypertensive heart disease without heart failure Coronary artery disease Diabetic neuropathy Diabetic ulcer of left foot Fungal ear infection Noncompliance Osteomyelitis of second toe of right foot Other hyperlipidemia Renal insufficiency Sepsis with acute respiratory failure Systemic inflammatory response syndrome (SIRS) Typical angina Impacted cerumen, bilateral Other asthma Right chronic otitis media Healed perforated eardrum Perforated tympanic membrane of both ears on examination Foreign body in right ear Impacted cerumen of left ear Acute right otitis media Tinnitus Hearing Loss Complicated urinary tract infection Acute urinary retention Elevated erythrocyte sedimentation rate Hemoptysis Acute subdural hematoma Epidural hematoma Finger infection Fall Diarrhea Suppurative tenosynovitis of flexor tendon Abscess of finger of left hand Concussion without loss of consciousness Weakness Shortness of breath Other acute osteomyelitis, left ankle and foot Postoperative wound dehiscence Cellulitis Left leg cellulitis Closed head injury Fall Unstable angina Abscess Laceration Atypical chest pain Onychodystrophy Postoperative edema Diabetic polyneuropathy associated with type 2 diabetes mellitus Abscess of left leg Cellulitis of left lower leg SIRS (systemic inflammatory response syndrome) Fever Sepsis Cellulitis Bacteremia Cellulitis of left foot Osteomyelitis of great toe of left foot Diabetic ulcer of left great toe IFEOMA (acute kidney injury) Renal insufficiency Elevated erythrocyte sedimentation rate Obesity (BMI 30-39.9) Hyponatremia Diabetic foot ulcer Diabetic foot infection Costal chondritis Fungal ear infection Sinusitis Bradycardia Dizziness Angina pectoris Typical angina Medication adverse effect Flank pain, acute Stable angina HHD (hypertensive heart disease) Diabetes CAD (coronary artery disease) Surgical History History of transmetatarsal amputation of right foot History of transmetatarsal amputation of right foot Presence of stent in coronary artery History of partial ray amputation of second toe of left foot Status post foot surgery History of partial amputation of toe Stented coronary artery Family History Other No significant family history Social History (Updated 02/04/24 @ 14:10 by Sandra Stevens RN) Smoking Status: Unknown if ever smoked second hand exposure: No alcohol intake: never substance use type: denies use current occupational status: disabled Travel in the last 8 weeks: None household members: other housing: skilled nursing marital status: current occupational exposures/hazards: No caffeine: Yes [facility] Anesthesia Checklist Patient Identification Patient Identification: Other: Structural Data Admitted From: Emergency Dept Planned Operative Procedure/s: i/d r foot Consent for Planned Operative Procedure(s) Verified: Yes Additional verifications Anesthesia Reactions: No Airway Assessment Mallampati Score:: Class III C-Spine Mobility Assessed: Yes TMJ Mobility Assessed: Yes Dentition: Poor Dentition Neurological Assessment Level of Consciousness: Awake, Alert, Follows Commands and Inappropriate Anesthesia Plan Anesthesia Risk discussed: No Anesthesia Plan: Patient unable to respond/answer ASA Class: III Anesthesia Type: General Preoperative Comments Pre-Operative Comments: pt anable to properly answer questions,info obtained from chart
[2024-02-04] MEDS: VANCOMYCIN 1000MG VIAL 1000 MG (15:02)
[2024-02-04] MEDS: GENTAMICIN 80 MG/2 ML VIAL ×2 (15:02)
[2024-02-04] MEDS: SODIUM CHLORIDE IRRIG SOLUTION 3,000 ML 100 ML IR (15:03)
[2024-02-04 15:27] LABS: Reflex Lactic Add Lactic Reflex
--- NOTE | 2024-02-04 16:47 | EXP.ANES.I ---
[facility] Anesthesia Record Part I Anesthesia Record I Intake, IV Amount: 1,400 Hydration: Adequate Estimated blood loss (mL): 100 Urine output (mL): 0 Blood Products used (#): none Blood Pressure: 131/68 SaO2: 90 Pulse Rate: 79 Airway Patency: Patent Respiratory Rate: 24 Temperature: 96.5 F Patient is:: Awake, Oral/Nasal airway (9.[address] upon arrival to PACU.) and Stable Stable to PACU at:: 16:44
--- NOTE | 2024-02-04 16:50 | XR_ITS ---
PROCEDURE INFORMATION: Exam: XR Right Foot Exam date and time: 02/04/2024 4:49 PM Age: 64 years old Clinical indication: Pain; Metatarsal; Right; Prior surgery; Surgery date: Post-operative (0-2 days); Surgery type: Amp; Additional info: S/P right partial 1-2nd met amp TECHNIQUE: Imaging protocol: Radiologic exam of the right foot. Views: 3 or more views. COMPARISON: 1. CT FOOT RT W CON 02/04/2024 12:55 PM 2. CR XR FOOT RT MIN 3V 02/04/2024 11:57 AM FINDINGS: Bones/joints: Interval amputation of the 1st and 2nd toes at the proximal metatarsal level. No other new findings. Soft tissues: Normal. IMPRESSION: Postop right foot status post amputation at the proximal 1st and 2nd metatarsals.
--- NOTE | 2024-02-04 16:54 | P.OP_ITS ---
Date of procedure: 02/04/24 Pre-op Diagnosis:: Right foot DFU Gas gangrene Cellulitis Diabetic foot infection Post-op Diagnosis:: Same Procedure performed:: Right foot incision and drainage Right foot wide excision and debridement of nonviable soft tissue and bone Partial 1-2nd ray amputation GAUDENCIO drain Surgeon:: Darleen Flower DPM TICK ERADICATOR:: Irving Flynn and Birdie Gonzales Anesthesia: GETA Estimated blood loss (mL): 30 Clinical Note:: See H&P from today. 64-year-old diabetic male with diabetic foot ulcer with cellulitis and gas gangrene meeting sepsis criteria. New images were discussed with the patient. We discussed conservative versus surgical treatment options. We discussed conservative care including continued oral vs IV antibiotics and local wound care versus surgical incision and drainage. Discussed need for urgent right foot I&D with wide full-thickness debridement. Discussed possibility of amputation surgery. All risks and benefits of surgery were discussed with patient including but not limited to: Bleeding, damage to nerve or blood vessels, need for further debridement, need for more surgery, possibility of amputation, possibility of future amputation, wound and bone healing complications, recurrent cellulitis, recurrent osteomyelitis. Patient understands that they could have wound healing complications including delayed healing and infection. We discussed that if the wound does not heal, it is possible that they may need further debridement. Patient understands if infection spreads into the bone, it may warrant proximal amputation and could result in further loss of digits, loss of partial foot or loss of leg. We discussed the risks and benefits in great detail. Other surgical risks include: prolonged pain and swelling, further infection requiring oral or IV antibiotics, delay in healing of soft tissue or bone, nerve or blood vessel damage, CRPS/RSD, DVT, anesthesia complications, and even . All questions answered. Patient verbalized understanding. Consent obtained. Operative findings:: Right foot has significant 2+ pitting edema. Diabetic foot ulcer ~3cm round noted to the subfirst metatarsal full-thickness and probes to the sesamoids. Another ulcer ~4cm round noted to the medial aspect of the first MTPJ full- thickness to the level of the bone with purulent creamy drainage. Malodor and necrotic tissue present. Purulence also noted from the distal lateral phalanx. Warmth and erythema extending to the first metatarsal cuneiform joint. I&D performed to the medial foot proximal to the medial first MTPJ ulceration. There was thick creamy purulent drainage with soft tissue liquefaction noted. The muscle and tissue was easily shredded and schmitz in appearance with drainage throughout the distal first and second toe and distal metatarsals 1 and 2. The re was a sinus track between the first and second metatarsals that extended about 6 cm proximal. The patient did bleed some but easily clotted off. There was minimal vessels to ligate/cauterize. Will check ABIs in the morning to assess healing potential for suspected diabetic small vessel disease/PAD. Operative note:: On this date and time the patient was deemed an appropriate surgical candidate. With informed consent time patient was transferred from the preoperative holding area to the operating theater placed on table in a normal supine position. Right lower extremities prepped and draped in normal sterile fashion. No tourniquet utilized. IV Vanco, Zosyn given in ER/infusing. Right foot incision and drainage: Attention was directed to the right dorsal medial foot where edema and erythema was noted. Utilizing a 15 blade, a linear incision was made over the proximal first metatarsal site. There was yellow- brown purulent drainage noted. [id number]-nu-zirj pressure was applied to the incision and immediately 10cc of purulent drainage was expressed. Wound culture taken. Next hemostat used to explore the area. There was deep tracking along medial plantar arch 7-8cm. Right wide debridement of nonviable tissue/bone: 15 blade was then used to make as a separate incision over the distal foot extending from the hallux to first metatarsal around the ulcers. Incision was full-thickness down to the level of the bone. Some purulent drainage was expressed from this area. 15 blade was used to sharply debride necrotic nonviable soft tissue full-thickness from the medial foot. It did probe to the sesamoids which could be felt preoperatively and the plantar ulcer. The sesamoids look arthritic and irregular with drainage from them. They were removed and sent for bone culture. Some tracking approximately 6 cm between the first and the second metatarsal. Due to the extensive soft tissue infection and changes to the first and second toes and metatarsals, decision made to proceed with partial first and second ray amputations. Right partial 1-2nd ray amputation with bone biopsy: Next 15 blade was used to excise all nonviable soft tissue full-thickness down to the level of the first and second metatarsals. A power saw was then used to transect the metatarsals. The distal metatarsals were soft with cortical erosions noted to the head and suspected osteomyelitis. A piece of the bone was sent as bone culture and bone pathology. The remaining 1-2nd metatarsal seemed hard and intact. Saw was used to take a 3 mm piece of the what appeared to be healthy metatarsal and sent for a clean margin to pathology. Right foot irrigation and debridement, GAUDENCIO drain application: Gentamicin irrigation was used to flush all incisions and a pulse lavage. The wounds were explored and no more purulence was noted. Prolene retention stitch was inserted. Vancomycin powder was inserted into the incision sites. A 7 flat GAUDENCIO drain was inserted to the dorsal incision to help prevent hematoma. Due to the extensive soft tissue damage a full wound closure was not performed. Prolene and skin miah were used to reapproximate the skin edges partially. Centrally a 1 cm opening was left and packed with Betadine soaked gauze. Over the medial proximal incision where the I&D had been performed, a 1 cm long opening was left and also packed with Betadine soaked gauze. Betadine dressing was then applied over the right foot. Patient was woken from anesthesia with vitals stable and neurovascular status intact to be transferred to recovery for further monitoring before being transferred back to the floor. Materials: Prolene, vancomycin powder 1 g, Betadine soaked gauze, 7 flat GAUDENCIO drain Plan: Maintain dressing clean dry and intact to right foot, reinforce as necessary. NWB in short fracture boot, walker. Antibiotics: IV vancomycin, Zosyn via hospitalist team. X-rays right foot 3 views. Plan for ABIs in the morning to assess healing potential. Plan for dressing change in the morning per podiatry. Depending how the wound looks tomorrow, patient may need further debridement in the future. Condition: stable Disposition: floor Specimens:: Right foot WCx Right foot tissue cx Right foot sesamoids bone cx Right 1-2nd met bone cx Right 1-2nd met bone path Right 1-2nd mets margin Complications:: None
--- NOTE | 2024-02-04 17:08 | EXP.HP ---
History of Present Illness *Admission Date: 02/04/24 *Reason for visit:: Right foot inflammation *History of present illness: HPI narrative: Patient is a 64-year-old group home resident sent in today for worsening of his wound over his right foot. One of our nurses who works at his group home knows him well and has been evaluating this wound chronically and she states that the plantar aspect of his wound was there last week but the medial aspect of the redness and swelling is new over the last few days. residential also noted that he may be altered but according to our nurse in the ED he is at his mental baseline. Patient is awake alert answering questions to me and tells me that he has no other complaints does not have any significant pain fevers etc. Podiatry Consult: Patient is a 64M who presents from [facility] with complaints of worsening right foot ulcer and infection. Patient reports a decreased appetite. He has not eaten today. He denies vomiting, fever/chills. Reports occasional shortness of breath. Pt is following with [facility] cardiology. Card consulted for cardiac clearance prior to surgery. Due to significant soft tissue infection and suspected gas on the plain film x-ray, CT pending will plan for OR today for I&D and debridement of nonviable soft tissue and bone. [facility] Medical History (Updated 02/04/24 @ 17:15 by Davey Alvarenga MD) Fatigue Dyspnea Abnormal electrocardiogram [ECG] [EKG] Hyponatremia Angina at rest Lower extremity edema Obesity, Class II, BMI 35-39.9, isolated (see actual BMI) Coronary artery disease Diabetic neuropathy Hypertensive heart disease without heart failure Coronary artery disease Diabetic neuropathy Diabetic ulcer of left foot Fungal ear infection Noncompliance Osteomyelitis of second toe of right foot Other hyperlipidemia Renal insufficiency Sepsis with acute respiratory failure Systemic inflammatory response syndrome (SIRS) Typical angina Impacted cerumen, bilateral Other asthma Right chronic otitis media Healed perforated eardrum Perforated tympanic membrane of both ears on examination Foreign body in right ear Impacted cerumen of left ear Acute right otitis media Tinnitus Hearing Loss Complicated urinary tract infection Acute urinary retention Elevated erythrocyte sedimentation rate Hemoptysis Acute subdural hematoma Epidural hematoma Finger infection Fall Diarrhea Suppurative tenosynovitis of flexor tendon Abscess of finger of left hand Concussion without loss of consciousness Weakness Shortness of breath Other acute osteomyelitis, left ankle and foot Postoperative wound dehiscence Cellulitis Left leg cellulitis Closed head injury Fall Unstable angina Abscess Laceration Atypical chest pain Onychodystrophy Postoperative edema Diabetic polyneuropathy associated with type 2 diabetes mellitus Abscess of left leg Cellulitis of left lower leg SIRS (systemic inflammatory response syndrome) Fever Sepsis Cellulitis Bacteremia Cellulitis of left foot Osteomyelitis of great toe of left foot Diabetic ulcer of left great toe IFEOMA (acute kidney injury) Renal insufficiency Elevated erythrocyte sedimentation rate Obesity (BMI 30-39.9) Hyponatremia Diabetic foot ulcer Diabetic foot infection Costal chondritis Fungal ear infection Sinusitis Bradycardia Dizziness Angina pectoris Typical angina Medication adverse effect Flank pain, acute Stable angina HHD (hypertensive heart disease) Diabetes CAD (coronary artery disease) Surgical History History of transmetatarsal amputation of right foot History of transmetatarsal amputation of right foot Presence of stent in coronary artery History of partial ray amputation of second toe of left foot Status post foot surgery History of partial amputation of toe Stented coronary artery Family History Other No significant family history Social History (Updated 02/04/24 @ 14:10 by Sandra Stevens, RN) Smoking Status: Unknown if ever smoked second hand exposure: No alcohol intake: never substance use type: denies use current occupational status: disabled Travel in the last 8 weeks: None household members: other housing: group home marital status: current occupational exposures/hazards: No caffeine: Yes Review of Systems Review of Systems Review of systems:: unable to obtain *Neurologic Neurologic: Reports system reviewed and no additional complaints, except as documented and Reports paresthesias Meds Home Medications and Allergies Home Medications ?Medication ?Instructions ?Recorded ?Confirmed ?Type ranolazine 1,000 mg 1,000 mg PO BID ANGINA 08/30/20 02/04/24 History tablet,extended release,12 hr albuterol sulfate 90 mcg/actuation 2 puff inhalation QID PRN 08/25/22 02/04/24 History aerosol inhaler SOA,wheeze tamsulosin 0.4 mg capsule 0.4 mg PO HS 01/10/23 02/04/24 History aspirin 81 mg chewable tablet 81 mg PO DAILY 01/24/23 02/04/24 History (Aspirin Childrens) citalopram 20 mg tablet 20 mg PO DAILY 01/24/23 02/04/24 History fluticasone propionate 50 1 spray intranasal BID 01/24/23 02/04/24 History mcg/actuation nasal spray,suspension acetaminophen 500 mg tablet 500 mg PO Q4H PRN Pain 05/07/23 02/04/24 History (Acetaminophen Extra Strength) atorvastatin 80 mg tablet 80 mg PO DAILY Cholesterol #90 tabs 05/07/23 02/04/24 Rx bisacodyl 10 mg rectal suppository 10 mg MA DAILY PRN bowel care 05/07/23 02/04/24 History (Laxative (bisacodyl)) ferrous sulfate 324 mg (65 mg 324 mg PO DAILY Supplement 05/07/23 02/04/24 History iron) tablet,delayed release fluticasone furoate 100 1 inh inhalation DAILY 05/07/23 02/04/24 History mcg-vilanterol 25 mcg/dose inhalation powder (Breo Ellipta) lactulose 10 gram/15 mL oral 20 g PO DAILY PRN bowel care 05/07/23 02/04/24 History solution ondansetron HCl 4 mg tablet 4 mg PO Q6H PRN nausea and vomiting 05/07/23 02/04/24 History pantoprazole 40 mg tablet,delayed 40 mg PO BID GERD 05/07/23 02/04/24 History release quetiapine 50 mg tablet 50 mg PO QAM 05/07/23 02/04/24 History quetiapine 50 mg tablet (Seroquel) 100 mg PO HS 05/07/23 02/04/24 History sennosides 8.6 mg-docusate sodium 2 tab-cap PO BID costipation 05/07/23 02/04/24 History 50 mg tablet (Senexon-S) pen needle,diabetic dual safty 30 #100 ea 08/15/23 01/16/24 History gauge x 3/16 (BD AutoShield Duo Pen Needle) metformin 1,000 mg tablet 1,000 mg PO BID #180 tabs 09/10/23 02/04/24 Rx potassium chloride 10 mEq 10 meq PO BID #180 caps 12/10/23 02/04/24 Rx capsule,extended release amlodipine 5 mg tablet (Norvasc) 5 mg PO DAILY #90 tabs 01/07/24 02/04/24 Rx insulin aspar prot-insulin aspart 35 unit SQ BID Diabetes 01/07/24 02/04/24 History 100 unit/mL (70-30) subcutaneous pen (Novolog Mix 70-30FlexPen U-100) divalproex 250 mg tablet,delayed 250 mg PO BID 01/08/24 02/04/24 History release loperamide 2 mg capsule 2 mg PO DAILY 01/08/24 02/04/24 History chlorhexidine gluconate 4 % topical 01/16/24 01/16/24 History topical liquid (Betasept Surgical Scrub) insulin aspar prt-insulin aspart SQ 01/16/24 01/16/24 History 100 unit/mL (70-30) subcutaneous soln insulin syringe-needle U-100 0.5 #10 ea 01/16/24 01/16/24 History mL 29 gauge x 1/2 insulin syringe-needle U-100 1 mL #10 ea 01/16/24 01/16/24 History 29 gauge x 1/2 New Prescriptions to Start Prescriptions: Allergies Allergy/AdvReac Type Severity Reaction Status Date / Time morphine [MORPHINE] Allergy Severe I-ITCHING Verified 01/16/24 13:17 influenza virus vaccine qs Allergy Unknown Verified 01/16/24 13:17 2019-20 (6 mos and up) allergy [From Fluarix Quad [id number] reaction (PF)] Exam Data for Last 24 hours Vital signs and Labs for Last 24 Hours: Temp Pulse Resp BP Pulse Ox O2 Del Method 96.5 F L 72 18 161/84 H 95 Room Air 02/04/24 16:49 02/04/24 16:59 02/04/24 16:59 02/04/24 16:59 02/04/24 16:59 02/04/24 16:59 Laboratory Results - last 24 hr 02/04/24 11:05: WBC 17.6 H, RBC 3.07 L, Hgb 10.0 L, Hct 30.8 L, MCV 100.5 H, MCH 32.7 H, MCHC 32.6, RDW 14.2, Plt Count 294, MPV 8.2, Neut % (Auto) 85.0 H, Lymph % (Auto) 6.4 L, [place] % (Auto) 8.0, Eos % (Auto) 0.3, Baso % (Auto) 0.3, Neut # (Auto) 15.0 H, Lymph # (Auto) 1.1, [place] # (Auto) 1.4 H, Eos # (Auto) 0.1, Baso # (Auto) 0.1, Total Counted 100, Neutrophils % (Manual) 83 H, Lymphocytes % (Manual) 10, Monocytes % (Manual) 7, Platelet Estimate Normal, Macrocytosis 1+, ESR 116 H, PT 11.9, INR 1.07, APTT 32.7 H, Sodium 126 L, Potassium 3.7, Chloride 93 L, Carbon Dioxide 24, Anion Gap 12.7, BUN 10, Creatinine 0.80, Estimated Creat Clear 105, Estimated GFR 97, Est GFR ( Amer) 117, Glucose 107 H, Lactate 2.5 H, Calcium 8.0 L, Total Bilirubin 1.4 H, AST 44, ALT 36, Alkaline Phosphatase 69, C-Reactive Protein 305.9 H, Total Protein 7.3, Albumin 3.5, Globulin 3.8 H, Albumin/Globulin Ratio 0.9 L I & O for Last 24 hours: Intake & Output 02/01/24 02/02/24 02/03/24 02/04/24 23:59 23:59 23:59 23:59 Intake Total 1400 / 1400 Balance 1400 / 1400 Weight 102.058 kg Constitutional Constitutional: no acute distress, morbidly obese, chronically ill appearing and cooperative *Routine HEENT Exam Head: Present normocephalic and atraumatic Eye: Present EOMI and PERRL ENT: Present mucous membranes moist; Absent dentition normal *Routine Neck Exam Neck: Absent JVD or lymphadenopathy *Routine Respiratory Exam Respiratory: Present rhonchi, normal respiratory effort and symmetric chest movement *Routine Cardiovascular Exam Cardiovascular: Present RRR *Routine Abdominal Exam Abdominal: Present soft and normoactive bowel sounds *Routine Rectal Exam Rectal:: deferred *Routine Genitalia Exam Genitalia:: deferred *Routine Extremities Exam Extremities: Present edema and full ROM Comments: Right foot dressing *Routine Skin Exam Skin: Present dry and wounds *Routine Neurological Exam Neurological: Present alert, moving all extremities, vision grossly intact and hearing grossly intact; Absent sensory deficit or motor deficit Routine Psychiatric Exam Psychiatric: Present cooperative Assessment and Plan *Assessment and plan (1) Severe sepsis: Status: Acute Category: Medical Code(s): A41.9 - Sepsis, unspecified organism; R65.20 - Severe sepsis without septic shock (2) Cellulitis of foot, right: Status: Acute Category: Medical Code(s): L03.115 - Cellulitis of right lower limb (3) Diabetic ulcer of right foot: Status: Acute Qualifiers: Diabetes mellitus type: type 2 Diabetic foot ulcer location: other Non-pressure ulcer stage: with bone involvement without evidence of necrosis Qualified Code(s): E11.621 - Type 2 diabetes mellitus with foot ulcer; L97.516 - Non-pressure chronic ulcer of other part of right foot with bone involvement without evidence of necrosis Category: Medical Code(s): E11.621 - Type 2 diabetes mellitus with foot ulcer; L97.519 - Non-pressure chronic ulcer of other part of right foot with unspecified severity (4) Diabetic neuropathy: Status: Acute Category: Medical Code(s): E11.40 - Type 2 diabetes mellitus with diabetic neuropathy, unspecified (5) Coronary artery disease: Status: Acute Category: Medical Code(s): I25.10 - Atherosclerotic heart disease of [place] coronary artery without angina pectoris (6) Peripheral vascular disease: Status: Acute Category: Medical Code(s): I73.9 - Peripheral vascular disease, unspecified (7) Chronic hyponatremia: Status: Acute Category: Medical Code(s): E87.1 - Hypo-osmolality and hyponatremia (8) Macrocytic anemia: Status: Acute Category: Medical Code(s): D53.9 - Nutritional anemia, unspecified Plan This is a 64-year-old male that is brought to the ED from his group home facility for inflamed chronic right foot diabetic wound and concerns for sepsis. Problems addressed as follows: Severe sepsis, present on admission Tachycardia, leukocytosis, lactic acidosis, right foot source IV fluid resuscitation with lactic acid trend Blood cultures pending Wound cultures pending MRSA screen Trending labs and inflammatory markers IV antibiotic therapy Right foot cellulitis Chronic right foot diabetic ulcer Diabetes with peripheral neuropathy Podiatry consult Plans for OR intervention Foot x-rays with soft tissue ulcer and edema with no evidence of osteomyelitis CT scan of right foot: No osteomyelitis noted, cellulitis and edema Wound cultures pending IV vancomycin IV Zosyn Postoperative care Pain control Weightbearing status per podiatry Postoperative PT and OT evaluations Case management assisting with discharge planning Coronary artery disease Peripheral vascular disease S/[facility] 2019 with no intervention Previous cardiac catheterization with stent deployment as noted Cardiology preop evaluation reviewed Holding antiplatelet therapy Statin therapy Beta-drea therapy ARB therapy Vascular studies ordered Chronic hyponatremia Trending electrolytes and creatinine Chronic SSRI therapy noted Gentle IV fluid resuscitation Macrocytic anemia Iron studies B12 evaluation Chronic metformin therapy noted Trending CBC PPI therapy Surgical intervention planned Hypertension Routine blood pressure monitoring Beta-drea therapy ARB therapy Dihydropyridine calcium channel drea therapy The length of stay for this patient will be 2 midnights or greater due to above diagnoses.
--- NOTE | 2024-02-04 17:14 | PC.NURSE ---
arrived by bed to floor from surgery
[2024-02-04] MEDS: 0.9 % SODIUM CHLORIDE 1000ML 1,000 ML 75 ML IV (17:26)
[2024-02-04 17:55] LABS: Lactic Acid Follow Up (RFLX 1) 2.4 mmol/L (0.7-2.1)
--- NOTE | 2024-02-04 18:13 | PC.NURSE ---
Pt is currently sitting up in bed eating dinner. No complaints voiced about any discomfort. (R) foot elevated on pillow with DSG C/D/I. GAUDENCIO drain in place. Male purewick placed. MRSA nasal swab and CRE swab obtained. Post op VSS. Call light within reach. Safety measures in place.
[2024-02-04] MEDS: APAP/HYDROCODONE 325MG/7.5MG TAB 1 TAB PO (19:38)
[2024-02-04 19:43] LABS: Reflex Lactic (2 hrs) Add Lactic Reflex
[2024-02-04 20:22] LABS: Lactic Acid Follow up (RFLX 2) 2.2 mmol/L (0.7-2.1)
[2024-02-04 20:36] LABS: POC Glucose,Bedside 169 (70-110)
[2024-02-04] MEDS: humaLOG 100 UNITS/ML 10ML VIAL (SSI) SQ (21:28)
--- NOTE | 2024-02-04 21:36 | PC.NURSE ---
while entering the room to administer medication, patient was observed standing beside the bed, patient was assisted back to bed and educated on the risks of baring weight on foot, patient verbalized understanding, small amount of blood noted to dressing on bottom side of foot, bed alarm was turned on for patient safety
[2024-02-05] VITALS (7 sets, daily range): BP systolic 127–139; BP diastolic 64–78; PULSE 81–96; RESP 16–20; TEMP 36.7–37.3; O2SAT 95–99; BMI 36.8
[2024-02-05] MEDS: PIPERACILLIN/TAZO 4.5 GM in 0.9 % SODIUM CHLORIDE 100 ML IV ×4 (00:07→17:05)
[2024-02-05] MEDS: ONDANSETRON 4MG/2ML VIAL 4 MG IV (02:23)
[2024-02-05] MEDS: APAP/HYDROCODONE 325MG/7.5MG TAB 1 TAB PO ×2 (02:23→19:31)
[2024-02-05 05:48] LABS: Basophils # 0.1 K/mm3 (0-0.2); Basophils % 0.4 % (0.1-2.0); Eosinophils % 0.2 % (0.1-12.0); Hematocrit 22.7 % (42.0-52.0); Lymphocytes # 0.7 K/mm3 (0.7-4.5); Lymphocytes % 4.4 % (10-50); Mean Corpuscular HGB Conc 32.5 g/dL (31.8-35.4); Mean Corpuscular Hemoglobin 32.6 pg (27.0-31.2); Mean Corpuscular Volume 100.1 fl (80-94); Mean Platelet Volume 8.7 fl (7.4-10.4); Monocytes # 1.5 K/mm3 (0.1-1.0); Monocytes % 9.1 % (1.7-9.3); Neutrophils # 14.1 K/mm3 (1.8-7.8); Platelet Count 265 K/mm3 (142-424); Red Blood Count 2.27 M/mm3 (4.60-6.20); Red Cell Distribution Width 14.5 % (11.5-17.5); White Blood Count 16.5 K/mm3 (4.8-10.8)
[2024-02-05] MEDS: humaLOG 100 UNITS/ML 10ML VIAL (SSI) SQ ×4 (05:49→21:12)
[2024-02-05 05:52] LABS: Anion Gap 15.6 mEq/L (5-15); Blood Urea Nitrogen 9 mg/dl (9-20); Calcium 7.3 mg/dl (8.4-10.2); Carbon Dioxide 25 mmol/L (22.0-30.0); Chloride 100 mmol/L (98-107); Creatinine Clearance Estimated 108 mL/min (50-200); Estimated Glomerular Filt Rate 113 ml/min (>60); GFR (African American) 137 ML/MIN (>60); Glucose 193 mg/dl (74-100); Potassium 3.6 mmoL/L (3.5-5.1); Sodium 137 mmol/L (136-145)
[2024-02-05 05:54] LABS: MANUAL DIFFERENTIAL MANUAL DIFFERENTIAL (MANUAL DIFF)
[2024-02-05 05:57] LABS: Hemoglobin 7.4 g/dL (14.1-18.0)
[2024-02-05 06:01] LABS: Hemoglobin A1C 5.4 % (4.0-6.0)
[2024-02-05 06:02] LABS: POC Glucose,Bedside 211 (70-110)
[2024-02-05 06:26] LABS: Erythrocyte Sedimentation Rate > 140 mm/hr (0-20)
--- NOTE | 2024-02-05 06:38 | P.CONS_ITS ---
Documented by User: Lexie Calabrese, SENIOR HUMAN RESOURCES REPRESENTATIVE 02/05/24 14:40 History of Present Illness *Admission Date: 02/04/24 *History of present illness: HPI narrative: Patient is a 64-year-old alf resident sent in today for worsening of his wound over his right foot. One of our nurses who works at his alf knows him well and has been evaluating this wound chronically and she states that the plantar aspect of his wound was there last week but the medial aspect of the redness and swelling is new over the last few days. senior care also noted that he may be altered but according to our nurse in the ED he is at his mental baseline. Patient is awake alert answering questions to me and tells me that he has no other complaints does not have any significant pain fevers etc. Podiatry Consult: Patient is a 64M who presents from [facility] with complaints of worsening right foot ulcer and infection. Patient reports a decreased appetite. He has not eaten today. He denies vomiting, fever/chills. Reports occasional shortness of breath. Pt is following with [facility] cardiology. Card consulted for cardiac clearance prior to surgery. Due to significant soft tissue infection and suspected gas on the plain film x-ray, CT pending will plan for OR today for I&D and debridement of nonviable soft tissue and bone. 02/05/24: Patient was very sick with vomiting and nausea upon entering the room, Nurse states he has been sick most of the night. He has been NPO since Midnight, he was given Phenergan for the nausea, which seemed to help. Plan to do dressing change this morning. [facility] Disclaimer: The information contained in this section may have been updated after the patient was seen, as this information can be updated by other users. Medical History (Updated 02/05/24 @ 09:00 by Antonio Do MD) Fatigue Dyspnea Abnormal electrocardiogram [ECG] [EKG] Hyponatremia Angina at rest Lower extremity edema Obesity, Class II, BMI 35-39.9, isolated (see actual BMI) Coronary artery disease Diabetic neuropathy Hypertensive heart disease without heart failure Coronary artery disease Diabetic neuropathy Diabetic ulcer of left foot Fungal ear infection Noncompliance Osteomyelitis of second toe of right foot Other hyperlipidemia Renal insufficiency Sepsis with acute respiratory failure Systemic inflammatory response syndrome (SIRS) Typical angina Impacted cerumen, bilateral Other asthma Right chronic otitis media Healed perforated eardrum Perforated tympanic membrane of both ears on examination Foreign body in right ear Impacted cerumen of left ear Acute right otitis media Tinnitus Hearing Loss Complicated urinary tract infection Acute urinary retention Elevated erythrocyte sedimentation rate Hemoptysis Acute subdural hematoma Epidural hematoma Finger infection Fall Diarrhea Suppurative tenosynovitis of flexor tendon Abscess of finger of left hand Concussion without loss of consciousness Weakness Shortness of breath Other acute osteomyelitis, left ankle and foot Postoperative wound dehiscence Cellulitis Left leg cellulitis Closed head injury Fall Unstable angina Abscess Laceration Atypical chest pain Onychodystrophy Postoperative edema Diabetic polyneuropathy associated with type 2 diabetes mellitus Abscess of left leg Cellulitis of left lower leg SIRS (systemic inflammatory response syndrome) Fever Sepsis Cellulitis Bacteremia Cellulitis of left foot Osteomyelitis of great toe of left foot Diabetic ulcer of left great toe IFEOAM (acute kidney injury) Renal insufficiency Elevated erythrocyte sedimentation rate Obesity (BMI 30-39.9) Hyponatremia Diabetic foot ulcer Diabetic foot infection Costal chondritis Fungal ear infection Sinusitis Bradycardia Dizziness Angina pectoris Typical angina Medication adverse effect Flank pain, acute Stable angina HHD (hypertensive heart disease) Diabetes CAD (coronary artery disease) Surgical History (Updated 02/05/24 @ 06:50 by Lexie Calabrese APRN) History of transmetatarsal amputation of right foot History of transmetatarsal amputation of right foot Presence of stent in coronary artery History of partial ray amputation of second toe of left foot Status post foot surgery History of partial amputation of toe Stented coronary artery Family History Other No significant family history Social History (Updated 02/04/24 @ 14:10 by Sandra Stevens RN) Smoking Status: Unknown if ever smoked second hand exposure: No alcohol intake: never substance use type: denies use current occupational status: disabled Travel in the last 8 weeks: None household members: other housing: alf marital status: current occupational exposures/hazards: No caffeine: Yes Review of Systems *Neurologic Neurologic: Reports system reviewed and no additional complaints, except as documented and Reports paresthesias Meds Home Medications and Allergies Home Medications ?Medication ?Instructions ?Recorded ?Confirmed ?Type ranolazine 1,000 mg 1,000 mg PO BID 08/30/20 02/04/24 History tablet,extended release,12 hr albuterol sulfate 90 mcg/actuation 2 puff inhalation QID PRN 08/25/22 02/04/24 History aerosol inhaler SOA,wheeze tamsulosin 0.4 mg capsule 0.4 mg PO HS 01/10/23 02/04/24 History aspirin 81 mg chewable tablet 81 mg PO DAILY 01/24/23 02/04/24 History (Aspirin Childrens) citalopram 20 mg tablet 20 mg PO DAILY 01/24/23 02/04/24 History fluticasone propionate 50 1 spray intranasal BID 01/24/23 02/04/24 History mcg/actuation nasal spray,suspension acetaminophen 500 mg tablet 500 mg PO Q4H PRN Pain 05/07/23 02/04/24 History (Acetaminophen Extra Strength) bisacodyl 10 mg rectal suppository 10 mg GA DAILY PRN Constipation 05/07/23 02/04/24 History (Laxative (bisacodyl)) ferrous sulfate 324 mg (65 mg 324 mg PO DAILY 05/07/23 02/04/24 History iron) tablet,delayed release fluticasone furoate 100 1 inh inhalation DAILY 05/07/23 02/04/24 History mcg-vilanterol 25 mcg/dose inhalation powder (Breo Ellipta) lactulose 10 gram/15 mL oral 20 g PO DAILY PRN Constipation 05/07/23 02/04/24 History solution ondansetron HCl 4 mg tablet 4 mg PO Q6H PRN nausea and vomiting 05/07/23 02/04/24 History pantoprazole 40 mg tablet,delayed 40 mg PO BID 05/07/23 02/04/24 History release quetiapine 50 mg tablet 50 mg PO DAILY 05/07/23 02/05/24 History quetiapine 50 mg tablet (Seroquel) 100 mg PO HS 05/07/23 02/04/24 History sennosides 8.6 mg-docusate sodium 2 tab-cap PO BID costipation 05/07/23 02/04/24 History 50 mg tablet (Senexon-S) metformin 1,000 mg tablet 1,000 mg PO BID #180 tabs 09/10/23 02/04/24 Rx potassium chloride 10 mEq 10 meq PO BID #180 caps 12/10/23 02/04/24 Rx capsule,extended release amlodipine 5 mg tablet (Norvasc) 5 mg PO DAILY #90 tabs 01/07/24 02/04/24 Rx insulin aspar prot-insulin aspart 35 unit SQ BID Diabetes 01/07/24 02/04/24 History 100 unit/mL (70-30) subcutaneous pen (Novolog Mix 70-30FlexPen U-100) divalproex 250 mg tablet,delayed 250 mg PO BID 01/08/24 02/04/24 History release loperamide 2 mg capsule 2 mg PO Q4HP PRN Diarrhea 01/08/24 02/05/24 History insulin aspar prot-insulin aspart 35 unit SQ DAILY 02/04/24 02/04/24 History 100 unit/mL (70-30) subcutaneous pen (Novolog Mix 70-30FlexPen U-100) atorvastatin 80 mg tablet 80 mg PO DAILY 02/05/24 02/04/24 History ticagrelor 60 mg tablet (Brilinta) 60 mg PO BID 02/05/24 02/05/24 History New Prescriptions to Start Prescriptions: Allergies Allergy/AdvReac Type Severity Reaction Status Date / Time morphine [MORPHINE] Allergy Severe I-ITCHING Verified 01/16/24 13:17 influenza virus vaccine qs Allergy Unknown Verified 01/16/24 13:17 2019- (6 mos and up) allergy [From Fluarix Quad [id number] reaction (PF)] Exam (Inpt) Vital signs and Labs for Last 24 Hours: Temp Pulse Resp BP Pulse Ox O2 Del Method 98.1 F 93 H 16 138/74 98 Room Air 02/05/24 04:00 02/05/24 04:00 02/05/24 04:00 02/05/24 04:00 02/05/24 04:00 02/05/24 05:00 Laboratory Results - last 24 hr 02/04/24 11:05: WBC 17.6 H, RBC 3.07 L, Hgb 10.0 L, Hct 30.8 L, MCV 100.5 H, MCH 32.7 H, MCHC 32.6, RDW 14.2, Plt Count 294, MPV 8.2, Neut % (Auto) 85.0 H, Lymph % (Auto) 6.4 L, [place] % (Auto) 8.0, Eos % (Auto) 0.3, Baso % (Auto) 0.3, Neut # (Auto) 15.0 H, Lymph # (Auto) 1.1, [place] # (Auto) 1.4 H, Eos # (Auto) 0.1, Baso # (Auto) 0.1, Total Counted 100, Neutrophils % (Manual) 83 H, Lymphocytes % (Manual) 10, Monocytes % (Manual) 7, Platelet Estimate Normal, Macrocytosis 1+, ESR 116 H, PT 11.9, INR 1.07, APTT 32.7 H, Sodium 126 L, Potassium 3.7, Chloride 93 L, Carbon Dioxide 24, Anion Gap 12.7, BUN 10, Creatinine 0.80, Estimated Creat Clear 105, Estimated GFR 97, Est GFR ( Amer) 117, Glucose 107 H, L actate 2.5 H, Calcium 8.0 L, Total Bilirubin 1.4 H, AST 44, ALT 36, Alkaline Phosphatase 69, C-Reactive Protein 305.9 H, Total Protein 7.3, Albumin 3.5, G lobulin 3.8 H, Albumin/Globulin Ratio 0.9 L 02/04/24 17:39: Lactate 2.4 H 02/04/24 19:57: Lactate 2.2 H 02/04/24 20:22: POC Glucose 169 H 02/05/24 05:20: WBC 16.5 H, RBC 2.27 L D, Hgb 7.4 L D, Hct 22.7 L, MCV 100.1 H, MCH 32.6 H, MCHC 32.5, RDW 14.5, Plt Count 265, MPV 8.7, Neut % (Auto) 86.0 H, L ymph % (Auto) 4.4 L, [place] % (Auto) 9.1, Eos % (Auto) 0.2, Baso % (Auto) 0.4, N eut # (Auto) 14.1 H, Lymph # (Auto) 0.7, [place] # (Auto) 1.5 H, Eos # (Auto) 0.0, Baso # (Auto) 0.1, ESR > 140 H, Sodium 137, Potassium 3.6, Chloride 100, Carbon Dioxide 25, Anion Gap 15.6 H, BUN 9, Creatinine 0.70, Estimated Creat Clear 108, Estimated GFR 113, Est GFR ( Amer) 137, Glucose 193 H D, Hemoglobin A1c 5.4, Calcium 7.3 L 02/05/24 05:43: POC Glucose 211 H I & O for Labs for Last 24 Hours: Intake & Output 02/02/24 02/03/24 02/04/24 02/05/24 23:59 23:59 23:59 23:59 Intake Total 1700 / 1700 100 / 100 Output Total 440 / 440 0 / 0 Balance 1260 / 1260 100 / 100 Weight 231 lb 9 oz 229 lb 7 oz Microbiology Reports for the Last 24 Hours: Microbiology 02/04/24 11:05 Blood Blood Culture - Preliminary 02/04/24 11:30 Foot,Right Gram Stain - Final Constitutional: Present no acute distress, obese, chronically ill appearing and cooperative Head: Present normocephalic Eye: Present as per HPI Neck: Present normal inspection and trachea midline Respiratory: Present normal respiratory effort and able to speak in complete sentences Cardiac: Present posterior tibial pulses present (weakly palpable ) and pedal pulses present (weakly palpable ) Comment:: Weakly palpable pedal pulses. Could be secondary to edema. GI: Present soft Rectal (male): Present deferred (male): Present deferred Extremities: Present normal inspection, full ROM, tenderness (S/P Right foot I&D, Partial 1-2nd ray amputation, GAUDENCIO drain) and joint swelling (right foot); Absent normal capillary refill or calf tenderness Skin: Present scars (left foot ) and wounds Comment:: Right foot has significant 2+ pitting edema. S/P Right foot I&D, Partial 1-2nd ray amputation, GAUDENCIO drain. Neuro: Present Motor Function Intact, alert, awake and moves all extremities; Absent Sensory Function Intact Ankle: bilateral: swelling (pitting edema) Feet/Toes: left: amputation (L partial 1st ray, 2nd toe), right: erythema (distal medial foot), right: swelling (right foot), right: tenderness (hallux) and right: wound (S/P Right foot I&D, Partial 1-2nd ray amputation, GAUDENCIO drain) and bilateral: nail abnormalities and bilateral: onychomycosis Inspection: Present nail disorder, infection (S/P Right foot I&D, Partial 1-2nd ray amputation, GAUDENCIO drain, getting IV Vanc/ Zosyn antibiotics) and ulceration Pulses: L dorsalis pedis pulse: diminished (weakly palpable), R dorsalis pedis pulse: diminished (weakly palpable), L posterior tibial pulse: diminished (weakly palpable) and R posterior tibial pulse: diminished (weakly palpable) CFT: dim: CFT Results Labs 02/05/24 05:20 02/05/24 05:20 Labs: Abnormal lab results 02/04/24 02/04/24 02/04/24 Range/Units 11:05 17:39 19:57 WBC 17.6 H (4.8-10.8) K/mm3 RBC 3.07 L (4.60-6.20) M/mm3 Hgb 10.0 L (14.1-18.0) g/dL Hct 30.8 L (42.0-52.0) % MCV 100.5 H (80-94) fl MCH 32.7 H (27.0-31.2) pg Neut % (Auto) 85.0 H (37.0-80.0) % Lymph % (Auto) 6.4 L (10-50) % Neut # (Auto) 15.0 H (1.8-7.8) K/mm3 [place] # (Auto) 1.4 H (0.1-1.0) K/mm3 Neutrophils % (Manual) 83 H (42-76) % ESR 116 H (0-20) mm/hr APTT 32.7 H (22.8-30.6) seconds Sodium 126 L (136-145) mmol/L Chloride 93 L (98-107) mmol/L Anion Gap (5-15) mEq/L Glucose 107 H (74-100) mg/dl POC Glucose (70-110) Lactate 2.5 H 2.4 H 2.2 H (0.7-2.1) mmol/L Calcium 8.0 L (8.4-10.2) mg/dl Total Bilirubin 1.4 H (0.2-1.3) mg/dl C-Reactive Protein 305.9 H (0-4) mg/L Globulin 3.8 H (1.3-3.2) g/dL Albumin/Globulin Ratio 0.9 L (1.1-1.8) 02/04/24 02/05/24 02/05/24 Range/Units 20:22 05:20 05:43 WBC 16.5 H (4.8-10.8) K/mm3 RBC 2.27 L D (4.60-6.20) M/mm3 Hgb 7.4 L D (14.1-18.0) g/dL Hct 22.7 L (42.0-52.0) % MCV 100.1 H (80-94) fl MCH 32.6 H (27.0-31.2) pg Neut % (Auto) 86.0 H (37.0-80.0) % Lymph % (Auto) 4.4 L (10-50) % Neut # (Auto) 14.1 H (1.8-7.8) K/mm3 [place] # (Auto) 1.5 H (0.1-1.0) K/mm3 Neutrophils % (Manual) (42-76) % ESR > 140 H (0-20) mm/hr APTT (22.8-30.6) seconds Sodium (136-145) mmol/L Chloride (98-107) mmol/L Anion Gap 15.6 H (5-15) mEq/L Glucose 193 H D (74-100) mg/dl POC Glucose 169 H 211 H (70-110) Lactate (0.7-2.1) mmol/L Calcium 7.3 L (8.4-10.2) mg/dl Total Bilirubin (0.2-1.3) mg/dl C-Reactive Protein (0-4) mg/L Globulin (1.3-3.2) g/dL Albumin/Globulin Ratio (1.1-1.8) H & H 02/04/24 02/05/24 Range/Units 11:05 05:20 Hgb 10.0 L 7.4 L D (14.1-18.0) g/dL Hct 30.8 L 22.7 L (42.0-52.0) % Coagulation 02/04/24 Range/Units 11:05 INR 1.07 (0.9-1.1) All other labs normal. Assessment and Plan *Assessment and plan (1) Cellulitis of foot, right: Status: Acute Category: Medical Code(s): L03.115 - Cellulitis of right lower limb (2) Gas gangrene: Status: Acute Category: Medical Code(s): A48.0 - Gas gangrene (3) Sepsis: Status: Acute Qualifiers: Sepsis acute organ dysfunction status: without acute organ dysfunction Sepsis type: sepsis due to unspecified organism Qualified Code(s): A41.9 - Sepsis, unspecified organism Category: Medical Code(s): A41.9 - Sepsis, unspecified organism (4) Diabetic ulcer of right foot: Status: Acute Qualifiers: Diabetes mellitus type: type 2 Diabetic foot ulcer location: other N on-pressure ulcer stage: with bone involvement without evidence of necrosis Q ualified Code(s): E11.621 - Type 2 diabetes mellitus with foot ulcer; L97.516 - Non-pressure chronic ulcer of other part of right foot with bone involvement without evidence of necrosis Category: Medical Code(s): E11.621 - Type 2 diabetes mellitus with foot ulcer; L97.519 - Non-pressure chronic ulcer of other part of right foot with unspecified severity (5) Obesity, Class II, BMI 35-39.9: Status: Acute Category: Medical Code(s): E66.9 - Obesity, unspecified (6) History of partial ray amputation of right great toe: Status: Acute Category: Surgical Code(s): Z89.411 - Acquired absence of right great toe (7) History of partial ray amputation of second toe of right foot: Status: Acute Category: Surgical Code(s): Z89.421 - Acquired absence of other right toe(s) Plan 02/05/24 Patient is a 64-year-old diabetic male well-known to the podiatry service who currently resides at [facility]. Presents to the [facility] ER today with worsening diabetic foot ulcer and infection. New images were discussed with the patient. We discussed conservative versus surgical treatment options. We discussed conservative care including continued oral vs IV antibiotics and local wound care versus surgical incision and drainage. Patient understands that they could have wound healing complications including delayed healing and infection. We discussed that if the wound does not heal, it is possible that they may need further debridement. Patient understands if infection spreads into the bone, it may warrant proximal amputation and could result in further loss of digits, loss of partial foot or loss of leg. We discussed the risks and benefits in great detail. Other surgical risks include: prolonged pain and swelling, further infection requiring oral or IV antibiotics, delay in healing of soft tissue or bone, nerve or blood vessel damage, CRPS/RSD, DVT, anesthesia complications, and even . All questions answered. Patient verbalized understanding. Consent obtained. 02/04/24- S/P Right foot Incision and Drainage, Partial 1-2nd ray amputation, GAUDENCIO drain Labs: 02/04/24, wbc 17.6, esr, crp 305.9 02/05/24, wbc 16.5, esr >140, A1c. 5.4%, gluc 211, crp-pending Right DFU Cellulitis S/P Right foot Incision and Drainage, Partial 1-2nd ray amputation, GAUDENCIO drain labs reviewed CT reviewed, report Findings: subcutaneous gas noted, No convincing osteomyelitis. Hospitalist team to admit Maintain dressing clean dry and intact to right foot, reinforce as necessary. NWB RLE in short fracture boot, walker. Antibiotics: IV vancomycin, Zosyn via hospitalist team. NPO now Plan for ABIs in the morning to assess healing potential. Plan for dressing change this morning per podiatry. Depending how the wound looks today, patient may need further debridement in the future. Specimens:Pending Right foot WCx Right foot tissue cx Right foot sesamoids bone cx Right 1-2nd met bone cx Right 1-2nd met bone path Right 1-2nd mets margin Documented by User: Darleen Flower DPM 02/05/24 09:36 [facility] Medical History (Updated 02/05/24 @ 09:00 by Antonio Do MD) Fatigue Dyspnea Abnormal electrocardiogram [ECG] [EKG] Hyponatremia Angina at rest Lower extremity edema Obesity, Class II, BMI 35-39.9, isolated (see actual BMI) Coronary artery disease Diabetic neuropathy Hypertensive heart disease without heart failure Coronary artery disease Diabetic neuropathy Diabetic ulcer of left foot Fungal ear infection Noncompliance Osteomyelitis of second toe of right foot Other hyperlipidemia Renal insufficiency Sepsis with acute respiratory failure Systemic inflammatory response syndrome (SIRS) Typical angina Impacted cerumen, bilateral Other asthma Right chronic otitis media Healed perforated eardrum Perforated tympanic membrane of both ears on examination Foreign body in right ear Impacted cerumen of left ear Acute right otitis media Tinnitus Hearing Loss Complicated urinary tract infection Acute urinary retention Elevated erythrocyte sedimentation rate Hemoptysis Acute subdural hematoma Epidural hematoma Finger infection Fall Diarrhea Suppurative tenosynovitis of flexor tendon Abscess of finger of left hand Concussion without loss of consciousness Weakness Shortness of breath Other acute osteomyelitis, left ankle and foot Postoperative wound dehiscence Cellulitis Left leg cellulitis Closed head injury Fall Unstable angina Abscess Laceration Atypical chest pain Onychodystrophy Postoperative edema Diabetic polyneuropathy associated with type 2 diabetes mellitus Abscess of left leg Cellulitis of left lower leg SIRS (systemic inflammatory response syndrome) Fever Sepsis Cellulitis Bacteremia Cellulitis of left foot Osteomyelitis of great toe of left foot Diabetic ulcer of left great toe IFEOMA (acute kidney injury) Renal insufficiency Elevated erythrocyte sedimentation rate Obesity (BMI 30-39.9) Hyponatremia Diabetic foot ulcer Diabetic foot infection Costal chondritis Fungal ear infection Sinusitis Bradycardia Dizziness Angina pectoris Typical angina Medication adverse effect Flank pain, acute Stable angina HHD (hypertensive heart disease) Diabetes CAD (coronary artery disease) Surgical History (Updated 02/05/24 @ 06:50 by Lexie Calabrese APRN) History of transmetatarsal amputation of right foot History of transmetatarsal amputation of right foot Presence of stent in coronary artery History of partial ray amputation of second toe of left foot Status post foot surgery History of partial amputation of toe Stented coronary artery Family History Other No significant family history Social History (Updated 02/04/24 @ 14:10 by Sandra Stevens RN) Smoking Status: Unknown if ever smoked second hand exposure: No alcohol intake: never substance use type: denies use current occupational status: disabled Travel in the last 8 weeks: None household members: other housing: alf marital status: current occupational exposures/hazards: No caffeine: Yes Meds Home Medications and Allergies Home Medications ?Medication ?Instructions ?Recorded ?Confirmed ?Type ranolazine 1,000 mg 1,000 mg PO BID 08/30/20 02/04/24 History tablet,extended release,12 hr albuterol sulfate 90 mcg/actuation 2 puff inhalation QID PRN 08/25/22 02/04/24 History aerosol inhaler SOA,wheeze tamsulosin 0.4 mg capsule 0.4 mg PO HS 01/10/23 02/04/24 History aspirin 81 mg chewable tablet 81 mg PO DAILY 01/24/23 02/04/24 History (Aspirin Childrens) citalopram 20 mg tablet 20 mg PO DAILY 01/24/23 02/04/24 History fluticasone propionate 50 1 spray intranasal BID 01/24/23 02/04/24 History mcg/actuation nasal spray,suspension acetaminophen 500 mg tablet 500 mg PO Q4H PRN Pain 05/07/23 02/04/24 History (Acetaminophen Extra Strength) bisacodyl 10 mg rectal suppository 10 mg GA DAILY PRN Constipation 05/07/23 02/04/24 History (Laxative (bisacodyl)) ferrous sulfate 324 mg (65 mg 324 mg PO DAILY 05/07/23 02/04/24 History iron) tablet,delayed release fluticasone furoate 100 1 inh inhalation DAILY 05/07/23 02/04/24 History mcg-vilanterol 25 mcg/dose inhalation powder (Breo Ellipta) lactulose 10 gram/15 mL oral 20 g PO DAILY PRN Constipation 05/07/23 02/04/24 History solution ondansetron HCl 4 mg tablet 4 mg PO Q6H PRN nausea and vomiting 05/07/23 02/04/24 History pantoprazole 40 mg tablet,delayed 40 mg PO BID 05/07/23 02/04/24 History release quetiapine 50 mg tablet 50 mg PO DAILY 05/07/23 02/05/24 History quetiapine 50 mg tablet (Seroquel) 100 mg PO HS 05/07/23 02/04/24 History sennosides 8.6 mg-docusate sodium 2 tab-cap PO BID costipation 05/07/23 02/04/24 History 50 mg tablet (Senexon-S) metformin 1,000 mg tablet 1,000 mg PO BID #180 tabs 09/10/23 02/04/24 Rx potassium chloride 10 mEq 10 meq PO BID #180 caps 12/10/23 02/04/24 Rx capsule,extended release amlodipine 5 mg tablet (Norvasc) 5 mg PO DAILY #90 tabs 01/07/24 02/04/24 Rx insulin aspar prot-insulin aspart 35 unit SQ BID Diabetes 01/07/24 02/04/24 History 100 unit/mL (70-30) subcutaneous pen (Novolog Mix 70-30FlexPen U-100) divalproex 250 mg tablet,delayed 250 mg PO BID 01/08/24 02/04/24 History release loperamide 2 mg capsule 2 mg PO Q4HP PRN Diarrhea 01/08/24 02/05/24 History insulin aspar prot-insulin aspart 35 unit SQ DAILY 02/04/24 02/04/24 History 100 unit/mL (70-30) subcutaneous pen (Novolog Mix 70-30FlexPen U-100) atorvastatin 80 mg tablet 80 mg PO DAILY 02/05/24 02/04/24 History ticagrelor 60 mg tablet (Brilinta) 60 mg PO BID 02/05/24 02/05/24 History New Prescriptions to Start Prescriptions: Allergies Allergy/AdvReac Type Severity Reaction Status Date / Time morphine [MORPHINE] Allergy Severe I-ITCHING Verified 01/16/24 13:17 influenza virus vaccine qs Allergy Unknown Verified 01/16/24 13:17 2019- (6 mos and up) allergy [From Fluarix Quad [id number] reaction (PF)] Exam (Inpt) Comment:: Right foot has significant 2+ pitting edema. S/P Right foot I&D, Partial 1-2nd ray amputation, GAUDENCIO drain. Has some discoloration and bruising along the incision. No evidence of gangrene, necrosis or purulent drainage. GAUDENCIO drain intact with 10cc outpt. Results Labs 02/05/24 05:20 02/05/24 05:20 Assessment and Plan *Assessment and plan (1) Cellulitis of foot, right: Status: Acute Category: Medical Code(s): L03.115 - Cellulitis of right lower limb (2) Gas gangrene: Status: Acute Category: Medical Code(s): A48.0 - Gas gangrene (3) Sepsis: Status: Acute Qualifiers: Sepsis acute organ dysfunction status: without acute organ dysfunction Sepsis type: sepsis due to unspecified organism Qualified Code(s): A41.9 - Sepsis, unspecified organism Category: Medical Code(s): A41.9 - Sepsis, unspecified organism (4) Diabetic ulcer of right foot: Status: Acute Qualifiers: Diabetes mellitus type: type 2 Diabetic foot ulcer location: other N on-pressure ulcer stage: with bone involvement without evidence of necrosis Q ualified Code(s): E11.621 - Type 2 diabetes mellitus with foot ulcer; L97.516 - Non-pressure chronic ulcer of other part of right foot with bone involvement without evidence of necrosis Category: Medical Code(s): E11.621 - Type 2 diabetes mellitus with foot ulcer; L97.519 - Non-pressure chronic ulcer of other part of right foot with unspecified severity (5) Obesity, Class II, BMI 35-39.9: Status: Acute Category: Medical Code(s): E66.9 - Obesity, unspecified (6) History of partial ray amputation of right great toe: Status: Acute Category: Surgical Code(s): Z89.411 - Acquired absence of right great toe (7) History of partial ray amputation of second toe of right foot: Status: Acute Category: Surgical Code(s): Z89.421 - Acquired absence of other right toe(s) Plan 02/05/24 Patient is a 64-year-old diabetic male well-known to the podiatry service who currently resides at [facility]. Presents to the [facility] ER today with worsening diabetic foot ulcer and infection. New images were discussed with the patient. We discussed conservative versus surgical treatment options. We discussed conservative care including continued oral vs IV antibiotics and local wound care versus surgical incision and drainage. Patient understands that they could have wound healing complications including delayed healing and infection. We discussed that if the wound does not heal, it is possible that they may need further debridement. Patient understands if infection spreads into the bone, it may warrant proximal amputation and could result in further loss of digits, loss of partial foot or loss of leg. We discussed the risks and benefits in great detail. Other surgical risks include: prolonged pain and swelling, further infection requiring oral or IV antibiotics, delay in healing of soft tissue or bone, nerve or blood vessel damage, CRPS/RSD, DVT, anesthesia complications, and even . All questions answered. Patient verbalized understanding. Consent obtained. Surgery, 02/04/24: S/P Right foot I&D, Partial 1-2nd ray amputation, GAUDENCIO drain Intraop Specimens: Pending Right foot WCx Right foot tissue cx Right foot sesamoids bone cx Right 1-2nd met bone cx Right 1-2nd met bone path Right 1-2nd mets margin Labs: 02/04/24, wbc 17.6, esr 116, crp 305.9, glucose 169, albumin 3.5, Na 126 9/11/24, wbc 16.5, esr >140, crp 261.7, A1c. 5.4%, glucose 211 02/05/24: POD #1 Right DFU, Cellulitis, s/p Right foot Incision and Drainage, Partial 1-2nd ray amputation, GAUDENCIO drain: -Labs and right foot xr reviewed -ABIs reviewed: Right MARITA 0.95 (PT 0.95, DP 0.95), TBI 0.69 and Left MARITA 1.18 (PT 0.92, DP 1.18), TBI 0.93, adequate flow to heal -Dressing removed-incision is stable. Some discoloration/bruising around incision. -Wound flushed, no purulence noted. GAUDENCIO Drain intact. Two areas of 1cm opening, re-packed with betadine soaked gauze. -New dressing applied: xeroform, betadine soaked gauze, gauze, kerlix, abd pad, Jose Luis applied. -Wound/right foot looks much better than yesterday. May need more debridement or grafting outpt in the future. -Maintain dressing clean dry and intact to right foot, reinforce as necessary. -NWB RLE in short fracture boot, walker. -Needs short fx boot. -Antibiotics: IV vancomycin, Zosyn via hospitalist team. -Will likely need PICC, IV abx x2-4 wks. -Plan for dressing change this morning per podiatry. -NPO now: no plans for Podiatry surgery today. However, keep NPO for Gen Sx consult.
[2024-02-05 06:41] LABS: POC Glucose,Bedside 137 (70-110)
[2024-02-05 06:58] LABS: Magnesium 1.5 mg/dl (1.6-2.3)
--- NOTE | 2024-02-05 07:00 | US_ITS ---
FINAL REPORT CLINICAL HISTORY: Access healing potential, s/p partial RF amp, DM, HTN, HLD, CAD, CT, PVD, COMPARISON: None FINDINGS: ANKLE-BRACHIAL PRESSURE INDICES Pressure indices are as follows: RIGHT LOWER EXTREMITY: Ankle-brachial pressure index: 0.95 Comments: Normal LEFT LOWER EXTREMITY: Ankle-brachial pressure index: 1.2 Comments: Normal CONCLUSION: No evidence of significant obstructive peripheral vascular disease of the lower extremities Reviewed, Interpreted and Dictated by Ishmael Suarez III, MD Transcribed by Cynthia Rodarte Authenticated and [facility]
[2024-02-05 07:03] LABS: C-Reactive Protein 261.7 mg/L (0-4)
--- NOTE | 2024-02-05 07:04 | XR_ITS ---
FINAL REPORT CLINICAL HISTORY: post operative ileus, vomiting FINDINGS: ABDOMEN SINGLE VIEW There is an air-filled distended stomach. There is presumed significant distention of the urinary bladder. There are degenerative changes of the spine. No abnormal calcification is seen. IMPRESSION: Air-filled distended stomach. Reviewed, Interpreted and Dictated by Ishmael Suarez III, MD Transcribed by Maya Hopper Authenticated and [facility]
[2024-02-05 07:16] LABS: Procalcitonin 0.148 ng/mL (0.0-2.0)
--- NOTE | 2024-02-05 07:56 | P.CONPHA_ITS ---
Pharmacy Intervention Comments: home medication list verified using group home MAR
--- NOTE | 2024-02-05 07:56 | HMH.PHAINT1 ---
Pharmacy Intervention Comments: home medication list verified using alf MAR
[2024-02-05 07:58] LABS: Lymphocytes % 8 % (10-50); Macrocytosis 1+; Monocytes % 7 % (2-9); Neutrophils % 85 % (42-76); Platelet Estimate Normal; Total Cells Counted 100
[2024-02-05] MEDS: PROMETHAZINE HCL 25MG/ML 1ML VIAL 12.5 MG IV (07:59)
--- NOTE | 2024-02-05 08:45 | XR_ITS ---
FINAL REPORT CLINICAL HISTORY: confirm NG COMPARISON: 2 hours prior FINDINGS: SINGLE VIEW ABDOMEN A single view of the abdomen was obtained. The NG tube is coiled in the esophagus. There is a normal bowel gas pattern. IMPRESSION: NG tube coiled in the esophagus. Recommend repositioning. Reviewed, Interpreted and Dictated by Ishmael Suarez III, MD Transcribed by Della Manley Authenticated and [facility]
[2024-02-05] MEDS: MAGNESIUM SULFATE IN WATER 2 GM/50 ML PIGGYBACK IV (08:48)
--- NOTE | 2024-02-05 08:49 | P.PN_ITS ---
Subjective *Date: 02/05/24 *Time: 08:49 Interval history: Patient is seen and examined at bedside this morning with the assistance of his nurse Sandra. She reports that he remains afebrile with stable vital signs. The patient reports epigastric fullness and discomfort. Nursing staff have identified nausea and emesis through the carpet winder hours. A KUB ordered this morning identifies gastric distention and concerns for ileus in a postoperative patient with diabetes. He is currently undergoing NG tube placement. He continues to tolerate his IV antibiotic therapy with no adverse events. Podiatry DOCUMENT MANAGEMENT CONSULTANT is in the room evaluating his surgical right foot wound. Exam Data for Last 24 hours Vital signs and Labs for Last 24 Hours: Temp Pulse Resp BP Pulse Ox O2 Del Method 98.0 F 89 18 139/64 95 Room Air 02/05/24 08:00 02/05/24 08:00 02/05/24 08:00 02/05/24 08:00 02/05/24 08:00 02/05/24 08:00 Laboratory Results - last 24 hr 02/04/24 11:05: WBC 17.6 H, RBC 3.07 L, Hgb 10.0 L, Hct 30.8 L, MCV 100.5 H, MCH 32.7 H, MCHC 32.6, RDW 14.2, Plt Count 294, MPV 8.2, Neut % (Auto) 85.0 H, Lymph % (Auto) 6.4 L, Hughes % (Auto) 8.0, Eos % (Auto) 0.3, Baso % (Auto) 0.3, Neut # (Auto) 15.0 H, Lymph # (Auto) 1.1, Hughes # (Auto) 1.4 H, Eos # (Auto) 0.1, Baso # (Auto) 0.1, Total Counted 100, Neutrophils % (Manual) 83 H, Lymphocytes % (Manual) 10, Monocytes % (Manual) 7, Platelet Estimate Normal, Macrocytosis 1+, ESR 116 H, PT 11.9, INR 1.07, APTT 32.7 H, Sodium 126 L, Potassium 3.7, Chloride 93 L, Carbon Dioxide 24, Anion Gap 12.7, BUN 10, Creatinine 0.80, Estimated Creat Clear 105, Estimated GFR 97, Est GFR ( Amer) 117, Glucose 107 H, Lactate 2.5 H, Calcium 8.0 L, Total Bilirubin 1.4 H, AST 44, ALT 36, Alkaline Phosphatase 69, C-Reactive Protein 305.9 H, Total Protein 7.3, Albumin 3.5, Globulin 3.8 H, Albumin/Globulin Ratio 0.9 L 02/04/24 16:41: POC Glucose 137 H 02/04/24 17:39: Lactate 2.4 H 02/04/24 19:57: Lactate 2.2 H 02/04/24 20:22: POC Glucose 169 H 02/05/24 05:20: WBC 16.5 H, RBC 2.27 L D, Hgb 7.4 L D, Hct 22.7 L, MCV 100.1 H, MCH 32.6 H, MCHC 32.5, RDW 14.5, Plt Count 265, MPV 8.7, Neut % (Auto) 86.0 H, Lymph % (Auto) 4.4 L, Hughes % (Auto) 9.1, Eos % (Auto) 0.2, Baso % (Auto) 0.4, Neut # (Auto) 14.1 H, Lymph # (Auto) 0.7, Hughes # (Auto) 1.5 H, Eos # (Auto) 0.0, Baso # (Auto) 0.1, Total Counted 100, Neutrophils % (Manual) 85 H, Lymphocytes % (Manual) 8 L, Monocytes % (Manual) 7, Platelet Estimate Normal, RBC Morphology Not Reportable, Macrocytosis 1+, ESR > 140 H, Sodium 137, Potassium 3.6, Chloride 100, Carbon Dioxide 25, Anion Gap 15.6 H, BUN 9, Creatinine 0.70, Estimated Creat Clear 108, Estimated GFR 113, Est GFR ( Amer) 137, Glucose 193 H D, Hemoglobin A1c 5.4, Calcium 7.3 L, Magnesium 1.5 L, C-Reactive Protein 261.7 H, Procalcitonin 0.148 02/05/24 05:43: POC Glucose 211 H I & O for Last 24 hours: Intake & Output 02/02/24 02/03/24 02/04/24 02/05/24 23:59 23:59 23:59 23:59 Intake Total 1700 / 1800 100 / 100 Output Total 440 / 440 0 / 0 Balance 1260 / 1360 100 / 100 Weight 105.035 kg 104.071 kg Microbiology Reports for the Last 24 Hours: Microbiology 02/04/24 11:05 Blood Blood Culture - Preliminary 02/04/24 11:30 Foot,Right Gram Stain - Final Constitutional Constitutional: mild distress, morbidly obese, chronically ill appearing and cooperative *Routine HEENT Exam Head: Present normocephalic Eye: Present EOMI and PERRL ENT: Present mucous membranes moist Comments: speaks in clear sentences after *Routine Neck Exam Neck: Absent JVD or lymphadenopathy *Routine Respiratory Exam Respiratory: Present rhonchi, normal respiratory effort and symmetric chest movement *Routine Cardiovascular Exam Cardiovascular: Present RRR *Routine Abdominal Exam Abdominal: Present soft, normoactive bowel sounds, tenderness, distended, rebound and guarding *Routine Extremities Exam Comments: Right foot surgical dressing with Jose Luis wrap *Routine Skin Exam Skin: Present dry; Absent rash *Routine Neurological Exam Neurological: Present alert, moving all extremities, vision grossly intact, hearing grossly intact and normal speech; Absent sensory deficit or motor deficit Routine Psychiatric Exam Psychiatric: Present normal affect, cooperative and good insight Assessment and Plan *Assessment and plan (1) Severe sepsis: Status: Acute Category: Medical Code(s): A41.9 - Sepsis, unspecified organism; R65.20 - Severe sepsis without septic shock (2) Cellulitis of foot, right: Status: Acute Category: Medical Code(s): L03.115 - Cellulitis of right lower limb (3) Diabetic ulcer of right foot: Status: Acute Qualifiers: Diabetic foot ulcer location: other Diabetes mellitus type: type 2 Non-pressure ulcer stage: with bone involvement without evidence of necrosis Qualified Code(s): E11.621 - Type 2 diabetes mellitus with foot ulcer; L97.516 - Non-pressure chronic ulcer of other part of right foot with bone involvement without evidence of necrosis Category: Medical Code(s): E11.621 - Type 2 diabetes mellitus with foot ulcer; L97.519 - Non-pressure chronic ulcer of other part of right foot with unspecified severity (4) Diabetic neuropathy: Status: Acute Category: Medical Code(s): E11.40 - Type 2 diabetes mellitus with diabetic neuropathy, unspecified (5) Coronary artery disease: Status: Acute Category: Medical Code(s): I25.10 - Atherosclerotic heart disease of douglas coronary artery without angina pectoris (6) Peripheral vascular disease: Status: Acute Category: Medical Code(s): I73.9 - Peripheral vascular disease, unspecified (7) Chronic hyponatremia: Status: Acute Category: Medical Code(s): E87.1 - Hypo-osmolality and hyponatremia (8) Macrocytic anemia: Status: Acute Category: Medical Code(s): D53.9 - Nutritional anemia, unspecified Plan This is a 64-year-old male that is brought to the ED from his [facility] facility for inflamed chronic right foot diabetic wound and concerns for sepsis. Problems addressed as follows: Severe sepsis, present on admission Tachycardia, leukocytosis, lactic acidosis, right foot source IV fluid resuscitation with lactic acid trend Blood cultures pending Wound cultures pending MRSA screen pending Trending labs and inflammatory markers IV antibiotic therapy Right foot cellulitis Chronic right foot diabetic ulcer Diabetes with peripheral neuropathy Podiatry consult I&D, wide excision and debridement, partial 1-2nd ray amputation with GAUDENCIO drain intervention (02/04/2024) Postoperative wound care MARITA= normal PT and OT evaluations Weightbearing status per podiatry Foot x-rays with soft tissue ulcer and edema with no evidence of osteomyelitis CT scan of right foot: No osteomyelitis noted, cellulitis and edema Operative cultures pending IV vancomycin discontinued IV Zyvox twice daily IV Zosyn Pain control Case management assisting with discharge planning Ileus Concerns with diabetic gastroparesis KUB with distended stomach NG tube care General Surgery consult Trending labs and inflammatory markers N.p.o. Coronary artery disease S/P [facility] 2019 with no intervention Previous cardiac catheterization with stent deployment as noted Cardiology preop evaluation reviewed antiplatelet therapy Statin therapy Beta-drea therapy ARB therapy Chronic hyponatremia-resolved Trending electrolytes and creatinine Chronic SSRI therapy noted Macrocytic anemia Iron studies pending B12 evaluation identifies deficiency (242) Chronic metformin therapy noted B12 replacement therapy Trending CBC PPI therapy Surgical intervention planned Hypertension Routine blood pressure monitoring Beta-drea therapy ARB therapy Dihydropyridine calcium channel drea therapy Diabetes Routine blood sugar monitoring Hemoglobin A1c 5.4% Basal insulin therapy Sliding scale insulin therapy Consistent carbohydrate diet The patient is hospitalized day 1. We appreciate [facility] scm consultant evaluations, procedural intervention and ongoing recommendations. Postoperatively the patient has developed an ileus with improved KUB after NG tube placement. Case management is assisting with discharge needs with rehab placement planned. Barriers to discharge currently include his postoperative course, wound care, pending cultures, IV antibiotic therapy, identified ileus and objective marker evaluations. Expected date of discharge cannot be determined at present time.
--- NOTE | 2024-02-05 08:56 | P.CONS_ITS ---
History of Present Illness *Admission Date: 02/04/24 *Reason for visit:: Postoperative nausea/vomiting *History of present illness: This is a 64-year-old gentleman seen in consultation from the primary service for evaluation regarding postoperative nausea/vomiting. He underwent right foot incision and drainage with wide debridement of nonviable tissue/bone and partial 1?2 ray amputation yesterday by the podiatry service. Overnight he developed increasing abdominal discomfort/epigastric pain with episodic nausea/vomiting. Initial attempts at nasogastric tube placement this morning were unsuccessful. The nasogastric tube was apparently coiling in the esophagus . The patient significantly burped during attempted nasogastric tube placement. Follow-up films revealed significant decrease in overall gastric distention. Forwarded from admission H&P: Patient is a 64-year-old [facility] [facility] resident sent in today for worsening of his wound over his right foot. One of our nurses who works at his [place] [facility] knows him well and has been evaluating this wound chronically and she states that the plantar aspect of his wound was there last week but the medial aspect of the redness and swelling is new over the last few days. retirement also noted that he may be altered but according to our nurse in the ED he is at his mental baseline. Patient is awake alert answering questions to me and tells me that he has no other complaints does not have any significant pain fevers etc. Podiatry Consult: Patient is a 64M who presents from [facility] with complaints of worsening right foot ulcer and infection. Patient reports a decreased appetite. He has not eaten today. He denies vomiting, fever/chills. Reports occasional shortness of breath. Pt is following with [facility] cardiology. Card consulted for cardiac clearance prior to surgery. Due to significant soft tissue infection and suspected gas on the plain film x-ray, CT pending will plan for OR today for I&D and debridement of nonviable soft tissue and bone. [facility] Disclaimer: The information contained in this section may have been updated after the patient was seen, as this information can be updated by other users. Medical History (Updated 02/05/24 @ 09:00 by Antonio Do MD) Fatigue Dyspnea Abnormal electrocardiogram [ECG] [EKG] Hyponatremia Angina at rest Lower extremity edema Obesity, Class II, BMI 35-39.9, isolated (see actual BMI) Coronary artery disease Diabetic neuropathy Hypertensive heart disease without heart failure Coronary artery disease Diabetic neuropathy Diabetic ulcer of left foot Fungal ear infection Noncompliance Osteomyelitis of second toe of right foot Other hyperlipidemia Renal insufficiency Sepsis with acute respiratory failure Systemic inflammatory response syndrome (SIRS) Typical angina Impacted cerumen, bilateral Other asthma Right chronic otitis media Healed perforated eardrum Perforated tympanic membrane of both ears on examination Foreign body in right ear Impacted cerumen of left ear Acute right otitis media Tinnitus Hearing Loss Complicated urinary tract infection Acute urinary retention Elevated erythrocyte sedimentation rate Hemoptysis Acute subdural hematoma Epidural hematoma Finger infection Fall Diarrhea Suppurative tenosynovitis of flexor tendon Abscess of finger of left hand Concussion without loss of consciousness Weakness Shortness of breath Other acute osteomyelitis, left ankle and foot Postoperative wound dehiscence Cellulitis Left leg cellulitis Closed head injury Fall Unstable angina Abscess Laceration Atypical chest pain Onychodystrophy Postoperative edema Diabetic polyneuropathy associated with type 2 diabetes mellitus Abscess of left leg Cellulitis of left lower leg SIRS (systemic inflammatory response syndrome) Fever Sepsis Cellulitis Bacteremia Cellulitis of left foot Osteomyelitis of great toe of left foot Diabetic ulcer of left great toe IFEOMA (acute kidney injury) Renal insufficiency Elevated erythrocyte sedimentation rate Obesity (BMI 30-39.9) Hyponatremia Diabetic foot ulcer Diabetic foot infection Costal chondritis Fungal ear infection Sinusitis Bradycardia Dizziness Angina pectoris Typical angina Medication adverse effect Flank pain, acute Stable angina HHD (hypertensive heart disease) Diabetes CAD (coronary artery disease) Surgical History (Updated 02/05/24 @ 06:50 by Lexie Calabrese APRN) History of transmetatarsal amputation of right foot History of transmetatarsal amputation of right foot Presence of stent in coronary artery History of partial ray amputation of second toe of left foot Status post foot surgery History of partial amputation of toe Stented coronary artery Family History Other No significant family history Social History (Updated 02/04/24 @ 14:10 by Sandra Stevens RN) Smoking Status: Unknown if ever smoked second hand exposure: No alcohol intake: never substance use type: denies use current occupational status: disabled Travel in the last 8 weeks: None household members: other housing: [facility] marital status: current occupational exposures/hazards: No caffeine: Yes Review of Systems *Neurologic Neurologic: Reports system reviewed and no additional complaints, except as documented and Reports paresthesias Meds Home Medications and Allergies Home Medications ?Medication ?Instructions ?Recorded ?Confirmed ?Type ranolazine 1,000 mg 1,000 mg PO BID 08/30/20 02/04/24 History tablet,extended release,12 hr albuterol sulfate 90 mcg/actuation 2 puff inhalation QID PRN 08/25/22 02/04/24 History aerosol inhaler SOA,wheeze tamsulosin 0.4 mg capsule 0.4 mg PO HS 01/10/23 02/04/24 History aspirin 81 mg chewable tablet 81 mg PO DAILY 01/24/23 02/04/24 History (Aspirin Childrens) citalopram 20 mg tablet 20 mg PO DAILY 01/24/23 02/04/24 History fluticasone propionate 50 1 spray intranasal BID 01/24/23 02/04/24 History mcg/actuation nasal spray,suspension acetaminophen 500 mg tablet 500 mg PO Q4H PRN Pain 05/07/23 02/04/24 History (Acetaminophen Extra Strength) bisacodyl 10 mg rectal suppository 10 mg OH DAILY PRN Constipation 05/07/23 02/04/24 History (Laxative (bisacodyl)) ferrous sulfate 324 mg (65 mg 324 mg PO DAILY 05/07/23 02/04/24 History iron) tablet,delayed release fluticasone furoate 100 1 inh inhalation DAILY 05/07/23 02/04/24 History mcg-vilanterol 25 mcg/dose inhalation powder (Breo Ellipta) lactulose 10 gram/15 mL oral 20 g PO DAILY PRN Constipation 05/07/23 02/04/24 History solution ondansetron HCl 4 mg tablet 4 mg PO Q6H PRN nausea and vomiting 05/07/23 02/04/24 History pantoprazole 40 mg tablet,delayed 40 mg PO BID 05/07/23 02/04/24 History release quetiapine 50 mg tablet 50 mg PO DAILY 05/07/23 02/05/24 History quetiapine 50 mg tablet (Seroquel) 100 mg PO HS 05/07/23 02/04/24 History sennosides 8.6 mg-docusate sodium 2 tab-cap PO BID costipation 05/07/23 02/04/24 History 50 mg tablet (Senexon-S) metformin 1,000 mg tablet 1,000 mg PO BID #180 tabs 09/10/23 02/04/24 Rx potassium chloride 10 mEq 10 meq PO BID #180 caps 12/10/23 02/04/24 Rx capsule,extended release amlodipine 5 mg tablet (Norvasc) 5 mg PO DAILY #90 tabs 01/07/24 02/04/24 Rx insulin aspar prot-insulin aspart 35 unit SQ BID Diabetes 01/07/24 02/04/24 History 100 unit/mL (70-30) subcutaneous pen (Novolog Mix 70-30FlexPen U-100) divalproex 250 mg tablet,delayed 250 mg PO BID 01/08/24 02/04/24 History release loperamide 2 mg capsule 2 mg PO Q4HP PRN Diarrhea 01/08/24 02/05/24 History insulin aspar prot-insulin aspart 35 unit SQ DAILY 02/04/24 02/04/24 History 100 unit/mL (70-30) subcutaneous pen (Novolog Mix 70-30FlexPen U-100) atorvastatin 80 mg tablet 80 mg PO DAILY 02/05/24 02/04/24 History ticagrelor 60 mg tablet (Brilinta) 60 mg PO BID 02/05/24 02/05/24 History New Prescriptions to Start Prescriptions: Allergies Allergy/AdvReac Type Severity Reaction Status Date / Time morphine [MORPHINE] Allergy Severe I-ITCHING Verified 01/16/24 13:17 influenza virus vaccine qs Allergy Unknown Verified 01/16/24 13:17 2019-20 (6 mos and up) allergy [From Fluarix Quad 3513-3202 reaction (PF)] Exam (Inpt) Vital signs and Labs for Last 24 Hours: Temp Pulse Resp BP Pulse Ox O2 Del Method 98.0 F 89 18 139/64 95 Room Air 02/05/24 08:00 02/05/24 08:00 02/05/24 08:00 02/05/24 08:00 02/05/24 08:00 02/05/24 08:00 Laboratory Results - last 24 hr 02/04/24 11:05: WBC 17.6 H, RBC 3.07 L, Hgb 10.0 L, Hct 30.8 L, MCV 100.5 H, MCH 32.7 H, MCHC 32.6, RDW 14.2, Plt Count 294, MPV 8.2, Neut % (Auto) 85.0 H, Lymph % (Auto) 6.4 L, [place] % (Auto) 8.0, Eos % (Auto) 0.3, Baso % (Auto) 0.3, Neut # (Auto) 15.0 H, Lymph # (Auto) 1.1, [place] # (Auto) 1.4 H, Eos # (Auto) 0.1, Baso # (Auto) 0.1, Total Counted 100, Neutrophils % (Manual) 83 H, Lymphocytes % (Manual) 10, Monocytes % (Manual) 7, Platelet Estimate Normal, Macrocytosis 1+, ESR 116 H, PT 11.9, INR 1.07, APTT 32.7 H, Sodium 126 L, Potassium 3.7, Chloride 93 L, Carbon Dioxide 24, Anion Gap 12.7, BUN 10, Creatinine 0.80, Estimated Creat Clear 105, Estimated GFR 97, Est GFR ( Amer) 117, Glucose 107 H, L actate 2.5 H, Calcium 8.0 L, Total Bilirubin 1.4 H, AST 44, ALT 36, Alkaline Phosphatase 69, C-Reactive Protein 305.9 H, Total Protein 7.3, Albumin 3.5, G lobulin 3.8 H, Albumin/Globulin Ratio 0.9 L 02/04/24 16:41: POC Glucose 137 H 02/04/24 17:39: Lactate 2.4 H 02/04/24 19:57: Lactate 2.2 H 02/04/24 20:22: POC Glucose 169 H 02/05/24 05:20: WBC 16.5 H, RBC 2.27 L D, Hgb 7.4 L D, Hct 22.7 L, MCV 100.1 H, MCH 32.6 H, MCHC 32.5, RDW 14.5, Plt Count 265, MPV 8.7, Neut % (Auto) 86.0 H, L ymph % (Auto) 4.4 L, [place] % (Auto) 9.1, Eos % (Auto) 0.2, Baso % (Auto) 0.4, N eut # (Auto) 14.1 H, Lymph # (Auto) 0.7, [place] # (Auto) 1.5 H, Eos # (Auto) 0.0, Baso # (Auto) 0.1, Total Counted 100, Neutrophils % (Manual) 85 H, Lymphocytes % (Manual) 8 L, Monocytes % (Manual) 7, Platelet Estimate Normal, RBC Morphology Not Reportable, Macrocytosis 1+, ESR > 140 H, Sodium 137, Potassium 3.6, Chloride 100, Carbon Dioxide 25, Anion Gap 15.6 H, BUN 9, Creatinine 0.70, Estimated Creat Clear 108, Estimated GFR 113, Est GFR ( Amer) 137, G lucose 193 H D, Hemoglobin A1c 5.4, Calcium 7.3 L, Magnesium 1.5 L, C-Reactive Protein 261.7 H, Procalcitonin 0.148 02/05/24 05:43: POC Glucose 211 H I & O for Labs for Last 24 Hours: Intake & Output 02/02/24 02/03/24 02/04/24 02/05/24 11:59 11:59 11:59 11:59 Intake Total 1800 / 1800 Output Total 440 / 440 Balance 1360 / 1360 Weight 225 lb 229 lb 7 oz Microbiology Reports for the Last 24 Hours: Microbiology 02/04/24 11:05 Blood Blood Culture - Preliminary 02/04/24 11:30 Foot,Right Gram Stain - Final Constitutional: no acute distress Respiratory: Absent respiratory distress Cardiac: Absent Tachycardia GI: Present distention and tenderness Results Labs 02/05/24 05:20 02/05/24 05:20 Labs: Laboratory Results - last 24 hr 02/04/24 11:05: WBC 17.6 H, RBC 3.07 L, Hgb 10.0 L, Hct 30.8 L, MCV 100.5 H, MCH 32.7 H, MCHC 32.6, RDW 14.2, Plt Count 294, MPV 8.2, Neut % (Auto) 85.0 H, Lymph % (Auto) 6.4 L, [place] % (Auto) 8.0, Eos % (Auto) 0.3, Baso % (Auto) 0.3, Neut # (Auto) 15.0 H, Lymph # (Auto) 1.1, [place] # (Auto) 1.4 H, Eos # (Auto) 0.1, Baso # (Auto) 0.1, Total Counted 100, Neutrophils % (Manual) 83 H, Lymphocytes % (Manual) 10, Monocytes % (Manual) 7, Platelet Estimate Normal, Macrocytosis 1+, ESR 116 H, PT 11.9, INR 1.07, APTT 32.7 H, Sodium 126 L, Potassium 3.7, Chloride 93 L, Carbon Dioxide 24, Anion Gap 12.7, BUN 10, Creatinine 0.80, Estimated Creat Clear 105, Estimated GFR 97, Est GFR ( Amer) 117, Glucose 107 H, L actate 2.5 H, Calcium 8.0 L, Total Bilirubin 1.4 H, AST 44, ALT 36, Alkaline Phosphatase 69, C-Reactive Protein 305.9 H, Total Protein 7.3, Albumin 3.5, G lobulin 3.8 H, Albumin/Globulin Ratio 0.9 L 02/04/24 16:41: POC Glucose 137 H 02/04/24 17:39: Lactate 2.4 H 02/04/24 19:57: Lactate 2.2 H 02/04/24 20:22: POC Glucose 169 H 02/05/24 05:20: WBC 16.5 H, RBC 2.27 L D, Hgb 7.4 L D, Hct 22.7 L, MCV 100.1 H, MCH 32.6 H, MCHC 32.5, RDW 14.5, Plt Count 265, MPV 8.7, Neut % (Auto) 86.0 H, L ymph % (Auto) 4.4 L, [place] % (Auto) 9.1, Eos % (Auto) 0.2, Baso % (Auto) 0.4, N eut # (Auto) 14.1 H, Lymph # (Auto) 0.7, [place] # (Auto) 1.5 H, Eos # (Auto) 0.0, Baso # (Auto) 0.1, Total Counted 100, Neutrophils % (Manual) 85 H, Lymphocytes % (Manual) 8 L, Monocytes % (Manual) 7, Platelet Estimate Normal, RBC Morphology Not Reportable, Macrocytosis 1+, ESR > 140 H, Sodium 137, Potassium 3.6, Chloride 100, Carbon Dioxide 25, Anion Gap 15.6 H, BUN 9, Creatinine 0.70, Estimated Creat Clear 108, Estimated GFR 113, Est GFR ( Amer) 137, G lucose 193 H D, Hemoglobin A1c 5.4, Calcium 7.3 L, Magnesium 1.5 L, C-Reactive Protein 261.7 H, Procalcitonin 0.148 02/05/24 05:43: POC Glucose 211 H Imaging Abdominal x-ray: report reviewed and image reviewed Assessment and Plan *Assessment and plan (1) Gastric distention: Status: Acute Category: Medical Code(s): K31.89 - Other diseases of stomach and duodenum Plan: Gastroparesis, gastric outlet obstruction, postoperative ileus with atypical presentation, etc. all remain within the differential. Initially proceed with additional attempts at nasogastric decompression Consider additional radiographic evaluation such as UGI/SBFT
[2024-02-05 09:06] LABS: Vitamin B12 242 pg/mL (239-931)
--- NOTE | 2024-02-05 09:18 | XR_ITS ---
FINAL REPORT CLINICAL HISTORY: repositioned ng tube COMPARISON: 02/05/2024 FINDINGS: ABDOMEN SINGLE VIEW There is a nonspecific, nonobstructive bowel gas pattern. No bowel dilation is identified. No abnormal calcification is seen. NG tube still appears to be coiled in the thoracic esophagus. IMPRESSION: NG tube is still malpositioned. Reviewed, Interpreted and Dictated by Ishmael Suarez III, MD Transcribed by Maya Hopper Authenticated and [facility]
[2024-02-05] MEDS: 0.9 % SODIUM CHLORIDE 1000ML 1,000 ML 75 ML IV (09:19)
[2024-02-05] MEDS: LINEZOLID 600 MG/300 ML IV.SOLN 300 MG IV ×2 (10:02→21:12)
[2024-02-05] MEDS: VITAMIN B-12 1,000 MCG 1ML VIAL 1000 MCG IM (10:02)
[2024-02-05] MEDS: HYDROMORPHONE 2MG/ML SYRINGE 0.5 MG IV ×2 (10:03→17:07)
[2024-02-05 11:08] LABS: Iron 29 ug/dL (49-181)
[2024-02-05 11:12] LABS: POC Glucose,Bedside 226 (70-110)
[2024-02-05 11:18] LABS: Total Iron Binding Capacity 145 ug/dL (261-462)
--- NOTE | 2024-02-05 13:06 | FL_ITS ---
FINAL REPORT CLINICAL HISTORY: question sb obstructions pt drank 360 ml of gastrografin/ GE junctions obstruction FINDINGS: A small bowel series was performed. The patient drank 360 mL of Gastrografin and multiple images were obtained. On the immediate image, contrast is seen in the stomach and proximal small bowel. The contrast is seen in the colon by the 1 hour 45-minute radiographs. The small bowel has an unremarkable appearance. There is no evidence of bowel obstruction. IMPRESSION: No evidence of obstruction at the GE junction. Unremarkable small bowel without evidence of obstruction. Authenticated and [facility]
--- NOTE | 2024-02-05 13:07 | PC.NURSE ---
Pt pulled NG out today and adamantly refuses to put a new NG back in. Has been up to BSC x2 and voided. Has passed gas x3 this afternoon. Call light within reach. Safety measures in place.
[2024-02-05] MEDS: DIATRIZOATE MEGLUMINE(GASTROGRAFIN) 66%-10% 120ML 360 ML PO (14:07)
[2024-02-05 16:32] LABS: POC Glucose,Bedside 155 (70-110)
--- NOTE | 2024-02-05 16:56 | PC.NURSE ---
SINCE TAKING OVER CARE OF PATIENT AROUND 1430, PATIENT HAS BEEN RESTING IN BED. PATIENT IS ALERT AND ORIENTED BUT DOES HAVE INTERMITTENT CONFUSION. PATIENT HAS BECOME INCONTINENT OF BOWELS, HAVING MULTIPLE EPISODES OF DIARRHEA. PURE WICK IN PLACE WELL. PATIENT ABLE TO HELP TURN HIMSELF IN BED, AND IS ABLE TO STAND AND SIT ON BEDSIDE COMMODE. DRESSING TO LLE REPLACED THIS MORNING. NEW DWAIN BANDAGE APPLIED THIS SHIFT D/T STOOL. HAS NO DRAINAGE IN GAUDENCIO DRAIN AT THIS TIME. HAS HAD NO OTHER NEEDS OR C/O THUS FAR. VSS.
[2024-02-05 20:55] LABS: POC Glucose,Bedside 170 (70-110)
[2024-02-05] MEDS: PANTOPRAZOLE 40MG TABLET 40 MG PO (21:11)
[2024-02-05] MEDS: INSULIN GLARGINE 100 UNITS/ML 3ML FLEXPEN 10 UNIT SQ (21:12)
[2024-02-05] MEDS: 0.9 % SODIUM CHLORIDE 1000ML 1,000 ML 125 ML IV (23:02)
[2024-02-06] VITALS (7 sets, daily range): BP systolic 98–150; BP diastolic 56–74; PULSE 66–86; RESP 14–21; TEMP 36.6–37.4; O2SAT 96–100; BMI 35.8
[2024-02-06] MEDS: PIPERACILLIN/TAZO 4.5 GM in 0.9 % SODIUM CHLORIDE 100 ML IV ×5 (00:10→23:13)
--- NOTE | 2024-02-06 03:43 | PC.NURSE ---
Nehal Akers APRN notified re report from [facility] that whenever turned on side to clean incontinence patient acts like he has passed out. Then when turned back on back patient is A/O and vitals stable. Patients abdomen distended, firm, + bowel sounds. Green Stool specimen sent to lab for culture. Nehal Akers APRN to come see patient.
--- NOTE | 2024-02-06 04:44 | PC.NURSE ---
Phone message left to remind Nehal Akers APRN to come see patient.
[2024-02-06 05:33] LABS: POC Glucose,Bedside 115 (70-110)
--- NOTE | 2024-02-06 06:00 | XR_ITS ---
FINAL REPORT CLINICAL HISTORY: Ileus COMPARISON: 02/05/2024 FINDINGS: SINGLE VIEW ABDOMEN A single view of the abdomen was obtained. Contrast is now seen in the colon. There are air-filled bowel loops which likely represent ileus. No abnormal calcifications are identified. IMPRESSION: Probable ileus. Reviewed, Interpreted and Dictated by Ishmael Suarez III, MD Transcribed by Della Manley Authenticated and [facility]
[2024-02-06 06:49] LABS: Blood Urea Nitrogen 8 mg/dl (9-20); Calcium 7.2 mg/dl (8.4-10.2); Carbon Dioxide 29 mmol/L (22.0-30.0); Chloride 105 mmol/L (98-107); Creatinine Clearance Estimated 104 mL/min (50-200); Estimated Glomerular Filt Rate 135 ml/min (>60); GFR (African American) 163 ML/MIN (>60); Glucose 120 mg/dl (74-100); Sodium 137 mmol/L (136-145)
[2024-02-06 06:54] LABS: Basophils % 0.3 % (0.1-2.0); Eosinophils # 0.1 K/mm3 (0.0-0.4); Eosinophils % 0.7 % (0.1-12.0); Hematocrit 22.5 % (42.0-52.0); Lymphocytes # 1.2 K/mm3 (0.7-4.5); Lymphocytes % 10.3 % (10-50); Mean Corpuscular HGB Conc 31.3 g/dL (31.8-35.4); Mean Corpuscular Hemoglobin 31.9 pg (27.0-31.2); Mean Corpuscular Volume 101.9 fl (80-94); Mean Platelet Volume 8.9 fl (7.4-10.4); Monocytes # 0.9 K/mm3 (0.1-1.0); Monocytes % 7.6 % (1.7-9.3); Neutrophils # 9.8 K/mm3 (1.8-7.8); Neutrophils % 81.1 % (37.0-80.0); Platelet Count 316 K/mm3 (142-424); Red Blood Count 2.21 M/mm3 (4.60-6.20); Red Cell Distribution Width 14.5 % (11.5-17.5); White Blood Count 12.1 K/mm3 (4.8-10.8)
[2024-02-06 06:55] LABS: C-Reactive Protein 221.8 mg/L (0-4)
[2024-02-06 07:04] LABS: Anion Gap 6.1 mEq/L (5-15); Potassium 3.1 mmoL/L (3.5-5.1)
--- NOTE | 2024-02-06 07:17 | P.PN_ITS ---
Subjective Patient reports: feels better and bowel movement Narrative: Multiple loose stools per nursing. The patient states, I need to eat . Exam Data for Last 24 hours Vital signs and Labs for Last 24 Hours: Temp Pulse Resp BP Pulse Ox O2 Del Method 98.0 F 75 18 150/65 H 96 Room Air 02/06/24 04:00 02/06/24 04:00 02/06/24 04:00 02/06/24 04:00 02/06/24 04:00 02/06/24 06:43 Laboratory Results - last 24 hr 02/05/24 05:20: Total Counted 100, Neutrophils % (Manual) 85 H, Lymphocytes % (Manual) 8 L, Monocytes % (Manual) 7, Platelet Estimate Normal, RBC Morphology Not Reportable, Macrocytosis 1+, Iron 29 L, TIBC 145 L, Iron Saturation 20.00 000, C-Reactive Protein 261.7 H, Vitamin B12 242 02/05/24 10:57: POC Glucose 226 H 02/05/24 16:03: POC Glucose 155 H 02/05/24 20:44: POC Glucose 170 H 02/06/24 05:24: POC Glucose 115 H 02/06/24 05:29: WBC 12.1 H D, RBC 2.21 L, Hgb 7.0 L, Hct 22.5 L, MCV 101.9 H, MCH 31.9 H, MCHC 31.3 L, RDW 14.5, Plt Count 316, MPV 8.9, Neut % (Auto) 81.1 H, Lymph % (Auto) 10.3, [place] % (Auto) 7.6, Eos % (Auto) 0.7, Baso % (Auto) 0.3, Neut # (Auto) 9.8 H, Lymph # (Auto) 1.2, [place] # (Auto) 0.9, Eos # (Auto) 0.1, Baso # (Auto) 0.0, Sodium 137, Potassium 3.1 L, Chloride 105, Carbon Dioxide 29, Anion Gap 6.1, BUN 8 L, Creatinine 0.60 L, Estimated Creat Clear 104, Estimated GFR 135, Est GFR ( Amer) 163, Glucose 120 H, Calcium 7.2 L, C-Reactive Protein 221.8 H I & O for Last 24 hours: Intake & Output 09/09/02/04/24 02/05/24 02/06/24 11:59 11:59 11:59 11:59 Intake Total 1825 / 1825 3136 / 3136 Output Total 1200 / 1200 1431 / 1431 Balance 625 / 625 1705 / 1705 Weight 225 lb 229 lb 7 oz 222 lb 10.67 oz Microbiology Reports for the Last 24 Hours: Microbiology 02/04/24 15:00 Foot,Right Gram Stain - Final 02/04/24 11:35 Blood Blood Culture - Preliminary 02/04/24 11:05 Blood Blood Culture - Preliminary 02/04/24 11:30 Foot,Right Gram Stain - Final 02/04/24 11:30 Foot,Right Wound Culture - Preliminary Radiology Reports for the Last 24 Hours: SBFT (02/04/24) IMPRESSION: No evidence of obstruction at the GE junction. Unremarkable small bowel without evidence of obstruction. Constitutional Constitutional: no acute distress *Routine Respiratory Exam Respiratory: Absent respiratory distress *Routine Cardiovascular Exam Cardiovascular: Absent tachycardia *Routine Abdominal Exam Abdominal: Present soft Comments: minimal TTP. Less distended. Progress Note: A&P Assessment and plan (1) Postoperative ileus: Status: Acute Assessment and plan: Resolving. SBFT yesterday essentially normal. Multiple loose BMs overnight. slowly advance diet (no carbonation initially) (2) Gastric distention: Status: Acute
--- NOTE | 2024-02-06 08:18 | P.PN_ITS ---
Subjective *Date: 02/06/24 *Time: 13:05 Interval history: Patient seen and evaluated at the bedside. He is eating and resting comfortably. Denies pain to the right foot. Dressing is intact. GAUDENCIO drain intact. Ortho Exam (Inpt) Vital signs and Labs for Last 24 Hours: Temp Pulse Resp BP Pulse Ox O2 Del Method 98.0 F 75 18 150/65 H 96 Room Air 02/06/24 04:00 02/06/24 04:00 02/06/24 04:00 02/06/24 04:00 02/06/24 04:00 02/06/24 06:43 Laboratory Results - last 24 hr 02/05/24 05:20: Iron 29 L, TIBC 145 L, Iron Saturation 20.89254, Vitamin B12 242 02/05/24 10:57: POC Glucose 226 H 02/05/24 16:03: POC Glucose 155 H 02/05/24 20:44: POC Glucose 170 H 02/06/24 05:24: POC Glucose 115 H 02/06/24 05:29: WBC 12.1 H D, RBC 2.21 L, Hgb 7.0 L, Hct 22.5 L, MCV 101.9 H, MCH 31.9 H, MCHC 31.3 L, RDW 14.5, Plt Count 316, MPV 8.9, Neut % (Auto) 81.1 H, Lymph % (Auto) 10.3, [place] % (Auto) 7.6, Eos % (Auto) 0.7, Baso % (Auto) 0.3, Neut # (Auto) 9.8 H, Lymph # (Auto) 1.2, [place] # (Auto) 0.9, Eos # (Auto) 0.1, Baso # (Auto) 0.0, Sodium 137, Potassium 3.1 L, Chloride 105, Carbon Dioxide 29, Anion Gap 6.1, BUN 8 L, Creatinine 0.60 L, Estimated Creat Clear 104, Estimated GFR 135, Est GFR ( Amer) 163, Glucose 120 H, Calcium 7.2 L, C-Reactive Protein 221.8 H I & O for Labs for Last 24 Hours: Intake & Output 02/03/24 02/04/24 02/05/24 02/06/24 11:59 11:59 11:59 11:59 Intake Total 1825 / 1825 3136 / 3136 Output Total 1200 / 1200 1431 / 1431 Balance 625 / 625 1705 / 1705 Weight 225 lb 229 lb 7 oz 222 lb 10.67 oz Microbiology Reports for the Last 24 Hours: Microbiology 02/04/24 15:00 Foot,Right Gram Stain - Final 02/04/24 15:00 Foot,Right Abscess Culture - Preliminary NO GROWTH AFTER 24 HOURS 02/04/24 15:10 Toe,Right Great Surgical Biopsy Culture - Preliminary NO GROWTH AFTER 24 HOURS 02/04/24 11:35 Blood Blood Culture - Preliminary 02/04/24 11:05 Blood Blood Culture - Preliminary 02/04/24 11:30 Foot,Right Gram Stain - Final 02/04/24 11:30 Foot,Right Wound Culture - Preliminary Constitutional: Present no acute distress and obese Head: Present normocephalic Neck: Present normal inspection Respiratory: Present normal respiratory effort Cardiac: Present pedal pulses present Rectal (male): Present deferred (male): Present deferred Extremities: Present edema Skin: Present intact and wounds Comment:: Right foot GAUDENCIO drain intact. S/p partial 1-2nd ray amputation with miah intact. Central area of the incision 1 cm wide left open to drain. On the medial aspect of the foot there is also a 1 cm opening that was left for drainage. Overall the skin is mildly macerated with skin peeling around the incision sites. Discoloration dusky bruising noted. GAUDENCIO drain was clogged, wound explored and drain manipulated within the wound and a large hematoma was expressed. Wound flushed and explored with hemostat and no stanislaw purulence expressed. Neuro: Present Numbness, Motor Function Intact, alert and moves all extremities Ankle: right: swelling (1+ pitting edema) and bilateral: normal inspection Feet/Toes: right: erythema (improving), right: swelling (swelling, bruising to distal medial foot), right: tenderness (no POP) and right: wound (s/p 1-2nd partial amp, 1cm opening x2 along incision) and bilateral: amputation (L 1st partial ray, 2nd toe; R 1-2nd partial ray) Assessment and Plan *Assessment and plan (1) Hematoma, postoperative: Status: Acute Qualifiers: Surgical complication system/body Area: musculoskeletal system Procedure type: musculoskeletal Qualified Code(s): M96.840 - Postprocedural hematoma of a musculoskeletal structure following a musculoskeletal system procedure Category: Medical (2) Cellulitis of foot, right: Status: Acute Category: Medical Code(s): L03.115 - Cellulitis of right lower limb (3) Gas gangrene: Status: Acute Category: Medical Code(s): A48.0 - Gas gangrene (4) Sepsis: Status: Acute Qualifiers: Sepsis acute organ dysfunction status: without acute organ dysfunction Sepsis type: sepsis due to unspecified organism Qualified Code(s): A41.9 - Sepsis, unspecified organism Category: Medical Code(s): A41.9 - Sepsis, unspecified organism (5) Diabetic ulcer of right foot: Status: Acute Qualifiers: Diabetes mellitus type: type 2 Diabetic foot ulcer location: other Non-pressure ulcer stage: with bone involvement without evidence of necrosis Qualified Code(s): E11.621 - Type 2 diabetes mellitus with foot ulcer; L97.516 - Non-pressure chronic ulcer of other part of right foot with bone involvement without evidence of necrosis Category: Medical Code(s): E11.621 - Type 2 diabetes mellitus with foot ulcer; L97.519 - Non-pressure chronic ulcer of other part of right foot with unspecified severity (6) Obesity, Class II, BMI 35-39.9: Status: Acute Category: Medical Code(s): E66.9 - Obesity, unspecified (7) History of partial ray amputation of right great toe: Status: Acute Category: Surgical Code(s): Z89.411 - Acquired absence of right great toe (8) History of partial ray amputation of second toe of right foot: Status: Acute Category: Surgical Code(s): Z89.421 - Acquired absence of other right toe(s) Plan Surgery, 02/04/24: S/P Right foot I&D, Partial 1-2nd ray amputation, GAUDENCIO drain Intraop Specimens: pending Right foot WCx: GPC x2 Right foot tissue cx: NG x24h Right foot sesamoids bone cx Right 1-2nd met bone cx: pending Right 1-2nd met bone path: pending Right 1-2nd mets margin: pending Labs: 02/04/24, wbc 17.6, esr 116, crp 305.9, glucose 169, albumin 3.5, Na 126 02/05/24, wbc 16.5, esr >140, crp 261.7, A1c. 5.4%, glucose 211 02/06/24, wbc 12.1, esr >140, crp 221.8, cr 0.6, gfr 135, bun 8, K 3.1, glucose 120 02/06/24: POD #2 Right DFU, Cellulitis, s/p Right foot Incision and Drainage, Partial 1-2nd ray amputation, GAUDENCIO drain: -Labs and right foot xr reviewed -ABIs reviewed: Right MARITA 0.95 (PT 0.95, DP 0.95), TBI 0.69 and Left MARITA 1.18 (PT 0.92, DP 1.18), TBI 0.93, adequate flow to heal -Dressing removed-incision is stable. Some discoloration/bruising around incision. -Wound flushed, no purulence noted. GAUDENCIO drain intact. -Minimal drainage in GAUDENCIO drain. [place] x5 removed around central opening. Hemostat used to explore wound opening and adjust GAUDENCIO drain. There was blood clotted over GAUDENCIO drain opening. -Saline flush to open wound, large hematoma expressed/evacuated. Then bleeding noted into GAUDENCIO drain. -Two areas of 1cm opening, re-packed with betadine soaked gauze. -New dressing applied: betadine soaked gauze, gauze, kerlix, abd pad, Jose Luis applied. -Wound/right foot looks more bruised than yesterday. -Patient asking if he needs to have all the toes removed. Discussed possibility of TMA. -Discussed with patient, he will likely need more debridement or grafting in the future (after infection clears). -Patient understands if he needs more surgery, it will be outpatient in 1-4 we eks. Current Orders (and if d/c over weekend, SNF Order): -Maintain dressing clean dry and intact to right foot, reinforce as necessary. -Plan for daily dressing changes per nursing. -Right foot dressing: betadine soaked gauze packed into opening, dry gauze, lo/kerlix, abd pad, Jose Luis. -GAUDENCIO drain maintenance every shift. Will likely pull in one week. -NWB RLE in short fracture boot, walker. -Antibiotics: IV Zyvox twice daily, Zosyn via hospitalist team (Vanco d/c). -Will likely need PICC, IV abx x2-4 wks, pending final intraop cultures. -No plans for Podiatry surgery today or in next few days. -If patient still here, will re-evaluate Saturday am.
--- NOTE | 2024-02-06 08:28 | P.PN_ITS ---
Subjective *Date: 02/06/24 *Time: 08:28 Interval history: Patient is seen and examined at bedside. Podiatry is at bedside providing right foot surgical wound care. The patient reports good rest through the night and is requesting to advance his diet. He reports effective flatus and bowel elimination yesterday afternoon after his small bowel follow-through. Nursing staff report that he remains afebrile with stable vital signs and saturating appropriately on room air. His morning labs have been reviewed and discussed and identify an improved leukocytosis with a WBC 12, hemoglobin of 7 with platelet count 316 and MCV 102. His iron saturation is 20%. His electrolytes identify potassium deficiency with normal sodium and chloride. His creatinine is normal. He is tolerating his antibiotic therapy with no adverse events. Blood cultures are identifying gram-negative. Exam Data for Last 24 hours Vital signs and Labs for Last 24 Hours: Temp Pulse Resp BP Pulse Ox O2 Del Method 98.0 F 75 18 150/65 H 96 Room Air 02/06/24 04:00 02/06/24 04:00 02/06/24 04:00 02/06/24 04:00 02/06/24 04:00 02/06/24 06:43 Laboratory Results - last 24 hr 02/05/24 05:20: Iron 29 L, TIBC 145 L, Iron Saturation 20.77284, Vitamin B12 242 02/05/24 10:57: POC Glucose 226 H 02/05/24 16:03: POC Glucose 155 H 02/05/24 20:44: POC Glucose 170 H 02/06/24 05:24: POC Glucose 115 H 02/06/24 05:29: WBC 12.1 H D, RBC 2.21 L, Hgb 7.0 L, Hct 22.5 L, MCV 101.9 H, MCH 31.9 H, MCHC 31.3 L, RDW 14.5, Plt Count 316, MPV 8.9, Neut % (Auto) 81.1 H, Lymph % (Auto) 10.3, [place] % (Auto) 7.6, Eos % (Auto) 0.7, Baso % (Auto) 0.3, Neut # (Auto) 9.8 H, Lymph # (Auto) 1.2, [place] # (Auto) 0.9, Eos # (Auto) 0.1, Baso # (Auto) 0.0, Sodium 137, Potassium 3.1 L, Chloride 105, Carbon Dioxide 29, Anion Gap 6.1, BUN 8 L, Creatinine 0.60 L, Estimated Creat Clear 104, Estimated GFR 135, Est GFR ( Amer) 163, Glucose 120 H, Calcium 7.2 L, C-Reactive Protein 221.8 H I & O for Last 24 hours: Intake & Output 02/03/24 02/04/24 02/05/24 02/06/24 23:59 23:59 23:59 23:59 Intake Total 1700 / 1800 2019 / 2659 1242 / 1242 Output Total 440 / 440 2191 / 2191 Balance 1260 / 1360 -172 / 468 1242 / 1242 Weight 105.035 kg 104.071 kg 101 kg Microbiology Reports for the Last 24 Hours: Microbiology 02/04/24 15:00 Foot,Right Gram Stain - Final 02/04/24 15:00 Foot,Right Abscess Culture - Preliminary NO GROWTH AFTER 24 HOURS 02/04/24 15:10 Toe,Right Great Surgical Biopsy Culture - Preliminary NO GROWTH AFTER 24 HOURS 02/04/24 11:35 Blood Blood Culture - Preliminary 02/04/24 11:05 Blood Blood Culture - Preliminary 02/04/24 11:30 Foot,Right Gram Stain - Final 02/04/24 11:30 Foot,Right Wound Culture - Preliminary Constitutional Constitutional: no acute distress, morbidly obese, chronically ill appearing and cooperative *Routine HEENT Exam Head: Present normocephalic Eye: Present EOMI and PERRL ENT: Present mucous membranes moist Comments: speaks in clear sentences after *Routine Neck Exam Neck: Absent JVD or lymphadenopathy *Routine Respiratory Exam Respiratory: Present rhonchi, normal respiratory effort and symmetric chest movement *Routine Cardiovascular Exam Cardiovascular: Present RRR *Routine Abdominal Exam Abdominal: Present soft, normoactive bowel sounds and distended; Absent tenderness, rebound or guarding *Routine Extremities Exam Comments: Right foot surgical dressing with Jose Luis wrap *Routine Skin Exam Skin: Present dry; Absent rash *Routine Neurological Exam Neurological: Present alert, moving all extremities, vision grossly intact, hearing grossly intact and normal speech; Absent sensory deficit or motor deficit Routine Psychiatric Exam Psychiatric: Present normal affect, cooperative and good insight Assessment and Plan *Assessment and plan (1) Severe sepsis: Status: Acute Category: Medical Code(s): A41.9 - Sepsis, unspecified organism; R65.20 - Severe sepsis without septic shock (2) Cellulitis of foot, right: Status: Acute Category: Medical Code(s): L03.115 - Cellulitis of right lower limb (3) Diabetic ulcer of right foot: Status: Acute Qualifiers: Diabetic foot ulcer location: other Diabetes mellitus type: type 2 Non-pressure ulcer stage: with bone involvement without evidence of necrosis Qualified Code(s): E11.621 - Type 2 diabetes mellitus with foot ulcer; L97.516 - Non-pressure chronic ulcer of other part of right foot with bone involvement without evidence of necrosis Category: Medical Code(s): E11.621 - Type 2 diabetes mellitus with foot ulcer; L97.519 - Non-pressure chronic ulcer of other part of right foot with unspecified severity (4) Diabetic neuropathy: Status: Acute Category: Medical Code(s): E11.40 - Type 2 diabetes mellitus with diabetic neuropathy, unspecified (5) Coronary artery disease: Status: Acute Category: Medical Code(s): I25.10 - Atherosclerotic heart disease of [place] coronary artery without angina pectoris (6) Peripheral vascular disease: Status: Acute Category: Medical Code(s): I73.9 - Peripheral vascular disease, unspecified (7) Chronic hyponatremia: Status: Acute Category: Medical Code(s): E87.1 - Hypo-osmolality and hyponatremia (8) Macrocytic anemia: Status: Acute Category: Medical Code(s): D53.9 - Nutritional anemia, unspecified Plan This is a 64-year-old male that is brought to the ED from his shelter facility for inflamed chronic right foot diabetic wound and concerns for sepsis. Problems addressed as follows: Severe sepsis, present on admission Tachycardia, leukocytosis, lactic acidosis, right foot source IV fluid resuscitation with lactic acid trend Blood cultures pending Wound cultures pending MRSA screen pending Trending labs and inflammatory markers IV antibiotic therapy Bacteremia Preliminary blood cultures with gram-negative anaerobe Repeat blood cultures requested Trending labs and inflammatory markers PICC line requested IV antibiotic therapy Right foot cellulitis Chronic right foot diabetic ulcer Diabetes with peripheral neuropathy Podiatry consult I&D, wide excision and debridement, partial 1-2nd ray amputation with GAUDENCIO drain intervention (02/04/2024) Postoperative wound care MARITA= normal PT and OT evaluations Weightbearing status per podiatry Foot x-rays with soft tissue ulcer and edema with no evidence of osteomyelitis CT scan of right foot: No osteomyelitis noted, cellulitis and edema Operative cultures pending IV vancomycin discontinued IV Zyvox twice daily IV Zosyn Pain control Case management assisting with discharge planning Ileus-resolved Concerns with diabetic gastroparesis KUB with distended stomach NG tube care discontinued by patient General Surgery consult reviewed Trending labs and inflammatory markers Small bowel follow-through with no obstruction Gently advancing diet (no carbonation) Accurate I's and O's Coronary artery disease S/P [facility] 2019 with no intervention Previous cardiac catheterization with stent deployment as noted Cardiology preop evaluation reviewed antiplatelet therapy Statin therapy Beta-drea therapy ARB therapy Chronic hyponatremia-resolved Trending electrolytes and creatinine Chronic SSRI therapy noted Macrocytic anemia Iron studies with iron saturation 20% Iron replacement therapy with ascorbic acid B12 evaluation identifies deficiency (242) Chronic metformin therapy noted B12 replacement therapy Trending CBC Transfuse for hemoglobin less than 7.0 PPI therapy Repeat surgical intervention planned Hypertension Routine blood pressure monitoring Beta-drea therapy ARB therapy Dihydropyridine calcium channel drea therapy Diabetes Routine blood sugar monitoring Hemoglobin A1c 5.4% Basal insulin therapy Sliding scale insulin therapy Consistent carbohydrate diet The patient is hospitalized day 2 with above diagnoses. We appreciate client support consultant evaluations, procedural intervention and ongoing recommendations concerning postprocedural care. Case management is assisting with discharge needs with rehab placement planned. Barriers to discharge currently include his postoperative course, wound care, pending cultures, IV antibiotic therapy and objective marker evaluations. Expected date of discharge cannot be determined at present time. I spent 50 minutes on this encounter, before, during and after the visit, evaluating the patient, reviewing records and writing orders. Time included discussing treatment recommendations, providing medical education and potential adverse events of agreed to therapies.
[2024-02-06 08:33] LABS: Erythrocyte Sedimentation Rate > 140 mm/hr (0-20)
--- NOTE | 2024-02-06 08:57 | XR_ITS ---
FINAL REPORT CLINICAL HISTORY: Confirm PICC line placement COMPARISON: 02/04/2024 FINDINGS: A single portable view of the chest was obtained. The heart size and pulmonary vascularity are within normal limits. There is a new left PICC line with the tip in the mid SVC. The mediastinum is otherwise within normal limits. No acute pulmonary abnormality is identified. The bony thorax is intact. IMPRESSION: New left PICC line tip in the mid SVC. No active cardiopulmonary disease. Reviewed, Interpreted and Dictated by Ishmael Suarez III, MD Transcribed by Della Manley Authenticated and . [facility]
--- NOTE | 2024-02-06 09:53 | HMH.OTEV ---
OT Inpatient Evaluation Rehab OT IP Evaluation Start: 02/06/24 08:36 Freq: ONCE Status: Active Protocol: Document 02/06/24 09:42 [facility] (Rec: 02/06/24 09:53 [facility] [id number]) Rehab OT IP Assessment Subjective History Pt oriented x 3 on arrival. Pt agreeable to engage in therapy evaluation. Pt admitted on 02/04/24 following Right foot incision and drainage Right foot wide excision and debridement of nonviable soft tissue and bone, partial 1-2nd ray amputation, and GAUDENCIO drain. History and physical report: Patient is a 64-year-old intermediate resident sent in today for worsening of his wound over his right foot. One of our nurses who works at his intermediate knows him well and has been evaluating this wound chronically and she states that the plantar aspect of his wound was there last week but the medial aspect of the redness and swelling is new over the last few days. [facility] also noted that he may be altered but according to our nurse in the ED he is at his mental baseline. Patient is awake alert answering questions to me and tells me that he has no other complaints does not have any significant pain fevers etc. Podiatry Consult: Patient is a 64M who presents from [facility] with complaints of worsening right foot ulcer and infection. Patient reports a decreased appetite. He has not eaten today. He denies vomiting, fever/chills. Reports occasional shortness of breath . Pt is following with [facility] cardiology. Card consulted for cardiac clearance prior to surgery. Due to significant soft tissue infection and suspected gas on the plain film x-ray, CT pending will plan for OR today for I&D and debridement of nonviable soft tissue and bone Subjective I don't like the looks of this. Prior to being in the hospital , pt was living at [facility]. Pt reports her normally required assistance with ADLs such as dressing and bathing; pt independent with feeding. Pt dependent upon staff to complete all IADLS. Pt claims he was able to complete functional transfers with rolling walker independently, but he had to do them slowly . During evaluation, pt was able to get to eob with min assist from supine. Once at eob, pt agreeable to engage in sit to stand. Therapist provided significant education on pt's R foot being non weight bearing during sit to stand. Pt verbalized understanding to therapist before standing. Tactile cues were provided by holding onto patient right foot on sit to stand. Pt required min/mod assist x 2 to complete sit to stand with rolling walker. Upon standing , pt continued to attempt to put weight through the right foot. Therapist had patient sit back down at eob. Once sitting at eob, pt moved foot back from an extended position putting significant weight on foot resulting in bleeding. Pt required max assist x 2 to complete bed mobility to go from sitting to supine. Wound therapist Ken Vanessa provided changing in wrap due to food bleeding through bandages. Objective Patient Orientation Person,Place,Birthday Right Upper Extremity Gross ROM WFL Left Upper Extremity Gross ROM WFL Bed Mobility bed mobility-scooting,bed mobility - supine/sit Assist Level Minimal x 2 (25% assist) Transfer Training Sit/Stand Transfer Assist Level Moderate x 2 (50% assist) Rehab OT IP prob,goals,plan Problems Date of Evaluation: 02/06/24 OT IP Problems Bed Mobility,Transfers,Balance ,Self care,Safety Rehab Potential Rehab Potential Good Equipment Needs Assistive Devices Rolling / Wheeled Walker Plan OT intervention Plan Bed Mobility,Transfers,Balance ,Self care,Safety,Therapeutic Exercise OT Plan Frequency Daily Duration LOS Discharge Goals Bed Mobility Ability Assistance x1 Sit to Stand Chair Transfer Ability Moderate x 1 (50% assist) Chair Transfer Ability Moderate x 1 (50% assist) Chair Transfer Technique Stand Pivot Chair Transfer Assistive Devices Rolling Walker Lower Body Dressing Ability Moderate Assistance Upper Body Dressing Ability Minimal Assistance Bathing Ability Moderate Assistance Performing Toilet Hygiene Ability Moderate Assistance Overall Commode/Toilet Transfer Ability Moderate Assistance Commode/Toilet Transfer Technique Sit to/from Ambulatory Commode/Toilet Transfer Assistive Grab Bars Devices Oral Care Assist Minimal Assistance Decrease in Endurance No Discharge Plan OT Discharge Plan Pt will continue to be seen for OT services while at [facility]. Pt would benefit most to return to [facility] with skilled therapy services. Continued skilled therapy is important in order for patient to improve strength, safety, endurance, ADL independence, and functional transfers to reach [facility]. Eval Complexity Eval Charge Codes 92531 - Moderate Complexity PHYSICIAN CERTIFICATION: I certify the specified therapy services for Mayo Cristobal are required, authorized, and reviewed every 30 days.
[2024-02-06] MEDS: CALCIUM CARBONATE 500MG CHEWTAB 500 MG PO ×2 (10:03→20:44)
[2024-02-06] MEDS: POTASSIUM CHLORIDE 20MEQ TAB 40 MEQ PO (10:03)
[2024-02-06] MEDS: VITAMIN B-12 1,000 MCG 1ML VIAL 1000 MCG IM (10:04)
[2024-02-06] MEDS: FERROUS SULFATE 325MG TABLET 325 MG PO (10:04)
[2024-02-06] MEDS: LINEZOLID 600 MG/300 ML IV.SOLN 300 MG IV ×2 (10:05→21:13)
[2024-02-06] MEDS: ASCORBIC ACID 500MG TAB 500 MG PO (10:05)
--- NOTE | 2024-02-06 10:12 | P.PNANES_ITS ---
[facility] Anesthesia Record Part II Anesthesia Record Part II Discharge Time: 17:14 Destination: [facility] PACU nurse assessment reviewed?: Yes Patient Condition:: Good Anesthesia Complications:: None Swallowing reflex intact?: Yes Airway Patency: Patent Cyanosis?: No Blood Pressure: 98/56 SaO2: 97 Respiratory Rate: 14 Pulse Rate: 66 Temperature: 99.4 F Mental Status: Alert & Oriented Pain level:: 0 Nausea and/or vomitting:: None Intake, IV Amount: 1,700 Hydration: Adequate
--- NOTE | 2024-02-06 10:50 | HMH.PTEV ---
Physical Therapy Evaluation Rehab PT IP Evaluation Start: 02/06/24 08:36 Freq: ONCE Status: Active Protocol: Document 02/06/24 09:50 SATNAM (Rec: 02/06/24 10:50 PHOCARLENE [id number]) Subjective/History History History This is the initial inpatient eval for Mayo Jain, a 64 yom that was admitted to [facility] for cellulitis and sepsis. Patient has a past medical history that includes but not limited to Hyponatremia, Angina at rest, Lower extremity edema, Obesity, Diabetic ulcer of left foot, Fungal ear infection, Noncompliance, Osteomyelitis of second toe of right foot, Other hyperlipidemia, Renal insufficiency, Sepsis with acute respiratory failure, Systemic inflammatory response syndrome Subjective Subjective Patient stated that he lives at [place] and he requires assistance for most ADL's. Patient stated that he uses a walker with two wheels, before coming to [facility]. Is your name on that board, when introduced to the rehab team before evaluation. New diagnosis of cancer in past 12 No months? Rehab PT IP Eval Objective Appearance Patient Behavior Distractible,Impulsive Patient Orientation Person,Place,Birthday Difficulty following instructions moderate Speech Pattern Garbled Ambulation Patient Able to Ambulate No Balance Ability to Arise Able, uses arms to help Sitting Balance Steady, safe Dynamic Sitting Balance Ability Normal Transfers Bed Transfer Ability Minimal x 2 (25% assist) Sit to Stand Bed Transfer Ability Maximum x 2 (75% assist) Rehab PT IP prob,goals,plan Problems Date of Evaluation: 02/06/24 PT IP Problems Bed Mobility,Transfers,Gait, Balance,Safety Rehab Potential Rehab Potential Good Equipment Needs Assistive Devices Rolling / Wheeled Walker Plan PT Intervention Plan Bed Mobility,Transfers,Gait, Balance,Safety,Therapeutic Exercise PT Plan Frequency Daily Duration LOS Discharge Goals Bed Transfer Ability Contact Guard/Hand Hold Sit to Stand Chair Transfer Ability Moderate x 2 (50% assist) Ambulation Assistive Device Rolling Walker Ambulation Distance (feet) 10 Discharge Plan PT Discharge Plan Patient struggled to maintain non weight bearing status at this time despite being accompanied by 4 members of rehab team assisting him. Patient was impulsive throughout treatment and repeatedly put weight on the right LE. It seemed to rehab team that the patient did not comprehend that he is not allowed to put weight on the R LE and he continued to show difficulty understanding rehab teams assistance to try and maintain it. Patient is most appropriate for placement in a SNF at this time. Skilled therapy required for teaching patient to ambulate with NWB status on right LE, bed mobility, and strengthening to return patient to their PLOF. Eval Complexity Eval Charge Codes 57855 - High Complexity PHYSICIAN CERTIFICATION: I certify the specified therapy services for Myao Jain are required, authorized, and reviewed every 30 days.
[2024-02-06] MEDS: humaLOG 100 UNITS/ML 10ML VIAL (SSI) SQ ×3 (11:46→20:43)
[2024-02-06 11:56] LABS: POC Glucose,Bedside 207 (70-110)
[2024-02-06] MEDS: 0.9 % SODIUM CHLORIDE 1000ML 1,000 ML 50 ML IV ×2 (16:45→18:25)
[2024-02-06 16:54] LABS: POC Glucose,Bedside 211 (70-110)
--- NOTE | 2024-02-06 18:19 | PC.NURSE ---
AOX4, BUT DIFFICULT TO UNDERSTAND AT TIMES. MULTIPLE LOOSE WATERY BM'S THIS SHIFT. TOLERATING ROOM AIR. PICC LINE PLACED TO PIPPA AND PLACEMENT VERIFIED WITH CXRAY. FOOT REQUIRED DRESSING CHANGE THIS MORNING AFTER WORKING WITH PT. PT WAS UNABLE TO MAINTAIN NON-WEIGHTBEARING STATUS AND WOUND BEGAN TO BLEED THROUGH BANDAGE.
[2024-02-06 20:32] LABS: POC Glucose,Bedside 178 (70-110)
[2024-02-06] MEDS: INSULIN GLARGINE 100 UNITS/ML 3ML FLEXPEN 10 UNIT SQ (20:42)
[2024-02-06] MEDS: PANTOPRAZOLE 40MG TABLET 40 MG PO (20:44)
[2024-02-06] MEDS: ASPIRIN EC 81MG TABLET 81 MG PO (20:44)
[2024-02-06] MEDS: TAMSULOSIN 0.4MG CAPSULE 0.4 MG PO (20:44)
[2024-02-06] MEDS: ATORVASTATIN 40MG TABLET 80 MG PO (20:45)
[2024-02-07] VITALS (25 sets, daily range): BP systolic 109–175; BP diastolic 47–83; PULSE 70–88; RESP 16–20; TEMP 36.3–37.1; O2SAT 91–99; BMI 37.9
--- NOTE | 2024-02-07 04:42 | PC.NURSE ---
HAS SLEPT AT SHORT INTERVALS. DRSG C/D/I TO RIGHT FOOT. GAUDENCIO DRAIN IN PLACE, SMALL AMTS SANGUINOUS DRAINAGE PRESENT.. NO C/O PAIN. PICC LINE INTACT TO PIPPA.
[2024-02-07] MEDS: PIPERACILLIN/TAZO 4.5 GM in 0.9 % SODIUM CHLORIDE 100 ML IV ×2 (05:07→13:34)
[2024-02-07 05:18] LABS: POC Glucose,Bedside 126 (70-110)
[2024-02-07 06:39] LABS: Alanine Aminotransferase 61 U/L (12-78); Albumin Level 2.5 g/dl (3.5-5.0); Albumin/Globulin Ratio 0.8 (1.1-1.8); Alkaline Phosphatase 64 U/L (38-126); Aspartate Amino Transferase 100 U/L (17-59); Bilirubin,Total 0.5 mg/dl (0.2-1.3); Blood Urea Nitrogen 5 mg/dl (9-20); Carbon Dioxide 27 mmol/L (22.0-30.0); Chloride 105 mmol/L (98-107); Creatinine Clearance Estimated 110 mL/min (50-200); Estimated Glomerular Filt Rate 113 ml/min (>60); GFR (African American) 137 ML/MIN (>60); Globulin 3.3 g/dL (1.3-3.2); Glucose 123 mg/dl (74-100); Magnesium 1.7 mg/dl (1.6-2.3); Sodium 133 mmol/L (136-145); Total Protein,Serum 5.8 g/dl (6.3-8.2)
--- NOTE | 2024-02-07 06:51 | EXP.SURG.PN ---
Subjective Patient reports: feels better, flatus and bowel movement Exam Data for Last 24 hours Vital signs and Labs for Last 24 Hours: Temp Pulse Resp BP Pulse Ox O2 Del Method 98.7 F 80 16 137/72 98 Room Air 02/07/24 04:00 02/07/24 04:00 02/07/24 04:00 02/07/24 04:00 02/07/24 04:00 02/07/24 06:31 Laboratory Results - last 24 hr 02/06/24 05:29: WBC 12.1 H D, RBC 2.21 L, Hgb 7.0 L, Hct 22.5 L, MCV 101.9 H, MCH 31.9 H, MCHC 31.3 L, RDW 14.5, Plt Count 316, MPV 8.9, Neut % (Auto) 81.1 H, Lymph % (Auto) 10.3, Archuleta % (Auto) 7.6, Eos % (Auto) 0.7, Baso % (Auto) 0.3, Neut # (Auto) 9.8 H, Lymph # (Auto) 1.2, Archuleta # (Auto) 0.9, Eos # (Auto) 0.1, Baso # (Auto) 0.0, ESR > 140 H, Sodium 137, Potassium 3.1 L, Chloride 105, Carbon Dioxide 29, Anion Gap 6.1, BUN 8 L, Creatinine 0.60 L, Estimated Creat Clear 104, Estimated GFR 135, Est GFR ( Amer) 163, Glucose 120 H, Calcium 7.2 L, C-Reactive Protein 221.8 H 02/06/24 11:44: POC Glucose 207 H 02/06/24 16:40: POC Glucose 211 H 02/06/24 20:20: POC Glucose 178 H 02/07/24 05:09: POC Glucose 126 H I & O for Last 24 hours: Intake & Output 02/04/24 02/05/24 02/06/24 02/07/24 11:59 11:59 11:59 11:59 Intake Total 1825 / 1825 5196 / 5196 1532 / 1532 Output Total 1200 / 1200 1431 / 1431 1600 / 1600 Balance 625 / 625 3765 / 3765 -68 / -68 Weight 225 lb 229 lb 7 oz 222 lb 10.67 oz 236 lb Microbiology Reports for the Last 24 Hours: Microbiology 02/04/24 15:10 Toe,Right Great Gram Stain - Final 02/04/24 15:10 Toe,Right Great Surgical Biopsy Culture - Preliminary NO GROWTH AFTER 24 HOURS 02/04/24 18:37 Nose MRSA Culture - Final Negative 02/04/24 15:00 Foot,Right Gram Stain - Final 02/04/24 15:00 Foot,Right Abscess Culture - Preliminary 02/04/24 11:30 Foot,Right Gram Stain - Final 02/04/24 11:30 Foot,Right Wound Culture - Preliminary 02/04/24 11:05 Blood Blood Culture - Preliminary Strep agalactiae - (group b) Constitutional Constitutional: no acute distress *Routine Respiratory Exam Respiratory: Absent respiratory distress *Routine Cardiovascular Exam Cardiovascular: Absent tachycardia *Routine Abdominal Exam Abdominal: Present soft Progress Note: A&P Assessment and plan (1) Postoperative ileus: Status: Acute Assessment and plan: Showing continued signs of resolution. Vilas diet ordered (2) Gastric distention: Status: Resolved
--- NOTE | 2024-02-07 07:06 | PC.NURSE ---
DR FULTON NOTIFIED RE CRITICAL POTASSIUM 3.0. NO NEW ORDERS AT THIS TIME.
[2024-02-07 08:01] LABS: MANUAL DIFFERENTIAL MANUAL DIFFERENTIAL (MANUAL DIFF)
[2024-02-07 08:07] LABS: Basophils % 0.4 % (0.1-2.0); Eosinophils # 0.3 K/mm3 (0.0-0.4); Eosinophils % 3.4 % (0.1-12.0); Lymphocytes # 1.8 K/mm3 (0.7-4.5); Lymphocytes % 18.5 % (10-50); Mean Corpuscular HGB Conc 31.6 g/dL (31.8-35.4); Mean Corpuscular Hemoglobin 32.8 pg (27.0-31.2); Mean Corpuscular Volume 103.8 fl (80-94); Mean Platelet Volume 8.8 fl (7.4-10.4); Monocytes # 0.8 K/mm3 (0.1-1.0); Monocytes % 8.6 % (1.7-9.3); Neutrophils # 6.8 K/mm3 (1.8-7.8); Neutrophils % 69.2 % (37.0-80.0); Platelet Count 327 K/mm3 (142-424); Red Blood Count 1.89 M/mm3 (4.60-6.20); Red Cell Distribution Width 14.5 % (11.5-17.5); White Blood Count 9.8 K/mm3 (4.8-10.8)
--- NOTE | 2024-02-07 08:08 | EXP.PHA.PN ---
Subjective *Date: 02/07/24 *Time: 08:08 Medical Exam Vital signs and Labs for Last 24 Hours: Vital Signs Temp Pulse Resp BP Pulse Ox O2 Del Method 02/07/24 06:31 Room Air 02/07/24 05:00 Room Air 02/07/24 04:00 98.7 F 80 16 137/72 98 Room Air 02/07/24 03:00 Room Air 02/07/24 01:00 Room Air 02/07/24 00:00 98.8 F 80 20 137/69 96 Room Air 02/06/24 23:00 Room Air 02/06/24 21:00 Room Air 02/06/24 20:00 100 Room Air 02/06/24 20:00 98.8 F 86 18 138/61 100 Room Air 02/06/24 18:18 Room Air 02/06/24 17:00 Room Air 02/06/24 16:00 98.3 F 83 21 138/69 99 Room Air 02/06/24 15:00 Room Air 02/06/24 13:00 Room Air 02/06/24 12:00 97.9 F 77 18 133/67 98 Room Air 02/06/24 11:00 Room Air 02/06/24 10:13 14 02/06/24 09:00 Room Air Intake and Output 02/06/24 02/07/24 02/07/24 23:59 07:59 15:59 Intake Total 360 / 4302 1172 / 1172 Output Total 1600 / 1600 Balance -1240 / 2702 1172 / 1172 Intake: Intake, Oral Amount 360 / 1200 240 / 240 Intake, Total IV Amount 932 / 932 0.9 % Sodium Chloride 1000ML 1, 432 / 432 000 ml @ 50 mls/hr IV .Q20H MED Rx#:[id number] Linezolid 600 mg In 300 ml @ 300 / 300 300 mls/hr IV Q12H MED Rx#: [id number] Piperacillin/Tazo 4.5 gm In 0.9 200 / 200 % Sodium Chloride 100 ml @ 200 mls/hr IV Q6H MED Rx#:[id number] Output: Output, Urine Amount 1600 / 1600 Other: Number of Unmeasured Voids 0 Number of Bowel Movements 1 1 Weight 107.048 kg Patient Weight 02/07/24 23:59 Weight 107.048 kg Laboratory Results - last 24 hr 02/06/24 05:29: ESR > 140 H 02/06/24 11:44: POC Glucose 207 H 02/06/24 16:40: POC Glucose 211 H 02/06/24 20:20: POC Glucose 178 H 02/07/24 05:09: POC Glucose 126 H 02/07/24 05:42: Sodium 133 L, Potassium 3.0 L, Chloride 105, Carbon Dioxide 27, Anion Gap 4.0 L, BUN 5 L D, Creatinine 0.70, Estimated Creat Clear 110, Estimated GFR 113, Est GFR ( Amer) 137, Glucose 123 H, Calcium 7.0 L, Magnesium 1.7 D, Total Bilirubin 0.5, AST 100 H D, ALT 61 D, Alkaline Phosphatase 64, Total Protein 5.8 L, Albumin 2.5 L, Globulin 3.3 H, Albumin/Globulin Ratio 0.8 L I & O for Labs for Last 24 Hours: Intake & Output 02/04/24 02/05/24 02/06/24 02/07/24 23:59 23:59 23:59 23:59 Intake Total 1700 / 1800 2019 / 2659 3662 / 4302 1172 / 1172 Output Total 440 / 440 2191 / 2191 1600 / 1600 Balance 1260 / 1360 -172 / 468 2062 / 2702 1172 / 1172 Weight 105.035 kg 104.071 kg 101 kg 107.048 kg Microbiology Reports for the Last 24 Hours: Microbiology 02/04/24 15:10 Toe,Right Great Gram Stain - Final 02/04/24 15:10 Toe,Right Great Surgical Biopsy Culture - Preliminary NO GROWTH AFTER 48 HOURS 02/04/24 18:37 Nose MRSA Culture - Final Negative 02/04/24 15:00 Foot,Right Gram Stain - Final 02/04/24 15:00 Foot,Right Abscess Culture - Preliminary 02/04/24 11:30 Foot,Right Gram Stain - Final 02/04/24 11:30 Foot,Right Wound Culture - Preliminary 02/04/24 11:05 Blood Blood Culture - Preliminary Strep agalactiae - (group b) The patient's infection will respond to the chosen ABx?: Yes (BLOOD AND FOOT CULTURE PENDING, AFEBRILE OVER 24 HR) Is the patient receiving the right drug, dose, and route?: Yes Could a more targeted ABx be ordered?: No
[2024-02-07 08:16] LABS: Hemoglobin 6.2 g/dL (14.1-18.0)
[2024-02-07 08:17] LABS: Hematocrit 19.7 % (42.0-52.0)
[2024-02-07] MEDS: FERROUS SULFATE 325MG TABLET 325 MG PO (09:27)
[2024-02-07] MEDS: CALCIUM CARBONATE 500MG CHEWTAB 500 MG PO ×2 (09:27→21:18)
[2024-02-07] MEDS: QUETIAPINE 25MG TABLET 50 MG PO (09:27)
[2024-02-07] MEDS: AMLODIPINE 5MG TABLET 5 MG PO (09:27)
[2024-02-07] MEDS: ASCORBIC ACID 500MG TAB 500 MG PO (09:27)
[2024-02-07] MEDS: CITALOPRAM 20MG TABLET 20 MG PO (09:27)
[2024-02-07] MEDS: LINEZOLID 600 MG/300 ML IV.SOLN 300 MG IV ×2 (09:28→22:47)
[2024-02-07] MEDS: VITAMIN B-12 1,000 MCG 1ML VIAL 1000 MCG IM (09:29)
[2024-02-07] MEDS: POTASSIUM CHLORIDE 20MEQ TAB 40 MEQ PO ×3 (09:36→21:18)
[2024-02-07 11:18] LABS: Anisocytosis 1+; Eosinophils % 1 % (0-3); Lymphocytes % 23 % (10-50); Macrocytosis 1+; Monocytes % 5 % (2-9); Neutrophils % 71 % (42-76); Nucleated Red Blood Cells 1; Platelet Estimate Normal; Poikilocytosis 1+; Total Cells Counted 100
[2024-02-07] MEDS: humaLOG 100 UNITS/ML 10ML VIAL (SSI) SQ ×2 (12:00→21:19)
[2024-02-07 12:27] LABS: POC Glucose,Bedside 221 (70-110)
--- NOTE | 2024-02-07 17:09 | P.PN_ITS ---
Subjective *Date: 02/07/24 *Time: 17:09 Interval history: Patient is hemoglobin low this morning. Continues to have bleeding from surgical site. Afebrile. Alert and at baseline mentation. Stable on room air. Remained afebrile overnight. No nausea or vomiting. Medical Exam Vital signs and Labs for Last 24 Hours: Vital Signs Temp Pulse Pulse Resp BP BP Pulse Ox 02/07/24 15:13 97.6 F 71 18 165/78 H 93 L 02/07/24 15:00 02/07/24 13:28 98.6 F 71 18 140/70 95 02/07/24 13:00 02/07/24 13:00 98.5 F 72 18 144/82 H 94 L 02/07/24 12:00 98.3 F 85 18 141/68 H 98 02/07/24 11:45 98.7 F 81 18 149/83 H 97 02/07/24 11:30 98.5 F 88 18 140/70 95 02/07/24 11:15 98.7 F 84 18 143/66 H 98 02/07/24 11:10 98.1 F 75 18 124/55 L 98 02/07/24 11:05 98.3 F 74 18 123/47 L 91 L 02/07/24 11:00 02/07/24 11:00 98.4 F 73 18 109/62 L 98 02/07/24 10:55 98.1 F 75 18 134/64 99 02/07/24 09:00 02/07/24 08:00 02/07/24 08:00 98.5 F 81 20 152/82 H 96 02/07/24 06:31 02/07/24 05:00 02/07/24 04:00 98.7 F 80 16 137/72 98 02/07/24 03:00 02/07/24 01:00 02/07/24 00:00 98.8 F 80 20 137/69 96 02/06/24 23:00 02/06/24 21:00 02/06/24 20:00 100 02/06/24 20:00 98.8 F 86 18 138/61 100 02/06/24 18:18 O2 Del Method 02/07/24 15:13 02/07/24 15:00 Room Air 02/07/24 13:28 02/07/24 13:00 Room Air 02/07/24 13:00 02/07/24 12:00 02/07/24 11:45 02/07/24 11:30 02/07/24 11:15 02/07/24 11:10 02/07/24 11:05 02/07/24 11:00 Room Air 02/07/24 11:00 02/07/24 10:55 02/07/24 09:00 Room Air 02/07/24 08:00 Room Air 02/07/24 08:00 Room Air 02/07/24 06:31 Room Air 02/07/24 05:00 Room Air 02/07/24 04:00 Room Air 02/07/24 03:00 Room Air 02/07/24 01:00 Room Air 02/07/24 00:00 Room Air 02/06/24 23:00 Room Air 02/06/24 21:00 Room Air 02/06/24 20:00 Room Air 02/06/24 20:00 Room Air 02/06/24 18:18 Room Air Intake and Output 02/07/24 02/07/24 02/07/24 07:59 15:59 23:59 Intake Total 1172 / 2312 1140 / 2312 Balance 1172 / 2312 1140 / 2312 Intake: Intake, Oral Amount 240 / 1130 890 / 1130 Intake, Total IV Amount 932 / 932 0.9 % Sodium Chloride 1000ML 1, 432 / 432 000 ml @ 50 mls/hr IV .Q20H MED Rx#:[id number] Linezolid 600 mg In 300 ml @ 300 / 300 300 mls/hr IV Q12H MED Rx#: [id number] Piperacillin/Tazo 4.5 gm In 0.9 200 / 200 % Sodium Chloride 100 ml @ 200 mls/hr IV Q6H MED Rx#:[id number] Intake (Blood Product) Amt 250 / 250 Red Blood Cells Unit 250 / 250 [id number] Red Blood Cells Unit 0 / 0 [id number] Other: Number of Bowel Movements 1 1 Weight 107.048 kg Patient Weight 02/07/24 23:59 Weight 107.048 kg Laboratory Results - last 24 hr 02/06/24 20:20: POC Glucose 178 H 02/07/24 05:09: POC Glucose 126 H 02/07/24 05:42: WBC 9.8, RBC 1.89 L*, Hgb 6.2 L*, Hct 19.7 L*, MCV 103.8 H, MCH 32.8 H, MCHC 31.6 L, RDW 14.5, Plt Count 327, MPV 8.8, Neut % (Auto) 69.2, Lymph % (Auto) 18.5, Edgar % (Auto) 8.6, Eos % (Auto) 3.4, Baso % (Auto) 0.4, Neut # (Auto) 6.8, Lymph # (Auto) 1.8, Edgar # (Auto) 0.8, Eos # (Auto) 0.3, Baso # (Auto) 0.0, Total Counted 100, Neutrophils % (Manual) 71, Lymphocytes % (Manual) 23, Monocytes % (Manual) 5, Eosinophils % (Manual) 1, Nucleated RBCs 1, Platelet Estimate Normal, Poikilocytosis 1+, Anisocytosis 1+, Macrocytosis 1+, Sodium 133 L, Potassium 3.0 L, Chloride 105, Carbon Dioxide 27, Anion Gap 4.0 L, BUN 5 L D, Creatinine 0.70, Estimated Creat Clear 110, Estimated GFR 113, Est GFR ( Amer) 137, Glucose 123 H, Calcium 7.0 L, Magnesium 1.7 D, Total Bilirubin 0.5, AST 100 H D, ALT 61 D, Alkaline Phosphatase 64, Total Protein 5.8 L, Albumin 2.5 L, Globulin 3.3 H, Albumin/Globulin Ratio 0.8 L 02/07/24 08:40: Blood Type O Positive, Antibody Screen Negative, Crossmatch (AHG) See Detail 02/07/24 11:58: POC Glucose 221 H I & O for Labs for Last 24 Hours: Intake & Output 02/04/24 02/05/24 02/06/24 02/07/24 23:59 23:59 23:59 23:59 Intake Total 1700 / 1800 2019 / 2659 3662 / 4302 231 / 2312 Output Total 440 / 440 2191 / 2191 1600 / 1600 Balance 1260 / 1360 -172 / 468 2062 / 2702 231 / 2312 Weight 105.035 kg 104.071 kg 101 kg 107.048 kg Microbiology Reports for the Last 24 Hours: Microbiology 02/04/24 11:30 Foot,Right Gram Stain - Final 02/04/24 11:30 Foot,Right Wound Culture - Preliminary Gram Positive Cocci Gram Positive Cocci#2 Gram Positive Cocci#3 02/04/24 11:35 Blood Antimicrobic Susceptibility - Final Not Reportable 02/04/24 11:35 Blood - Final Not Reportable 02/04/24 11:35 Blood - Final Not Reportable 02/04/24 11:35 Blood - Final Not Reportable 02/04/24 11:35 Blood - Final Not Reportable 02/04/24 11:35 Blood - Final Not Reportable 02/04/24 11:35 Blood - Final Not Reportable 02/04/24 11:35 Blood - Final Not Reportable 02/04/24 11:35 Blood - Final Not Reportable 02/04/24 11:35 Blood - Final Not Reportable 02/04/24 11:35 Blood Blood Culture - Preliminary 02/04/24 18:51 Rectum CRE Surveillance Culture - Final Negative 02/04/24 15:10 Toe,Right Great Gram Stain - Final 02/04/24 15:10 Toe,Right Great Surgical Biopsy Culture - Preliminary 02/04/24 15:00 Foot,Right Bone Culture - Preliminary 02/04/24 15:00 Foot,Right Gram Stain - Final 02/04/24 15:00 Foot,Right Abscess Culture - Preliminary Gram Positive Cocci 02/06/24 09:36 Blood Blood Culture - Preliminary NO GROWTH AFTER 24 HOURS 02/06/24 09:36 Blood Blood Culture - Preliminary NO GROWTH AFTER 24 HOURS 02/04/24 11:05 Blood Blood Culture - Preliminary Strep agalactiae - (group b) Constitutional: Present no acute distress, obese, chronically ill appearing and cooperative Head: Present atraumatic and normocephalic ENT: Present normal exam Respiratory: Present normal respiratory effort; Absent rhonchi, wheezes or crackles Cardiac: Present Reg Rate and Rhythm GI: Present soft and normal bowel sounds; Absent distention or tenderness Extremities: Present full ROM Comment:: 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 Right foot with clean surgical wound, slow bleeding with bloodsoaked bandage. Skin: Present intact and pallor; Absent erythema Neuro: Present Grossly Intact, alert, awake and moves all extremities Assessment and Plan *Assessment and plan (1) Severe sepsis: Status: Acute Category: Medical Code(s): A41.9 - Sepsis, unspecified organism; R65.20 - Severe sepsis without septic shock (2) Cellulitis of foot, right: Status: Acute Category: Medical Code(s): L03.115 - Cellulitis of right lower limb (3) Diabetic ulcer of right foot: Status: Acute Qualifiers: Diabetic foot ulcer location: other Diabetes mellitus type: type 2 Non-pressure ulcer stage: with bone involvement without evidence of necrosis Qualified Code(s): E11.621 - Type 2 diabetes mellitus with foot ulcer; L97.516 - Non-pressure chronic ulcer of other part of right foot with bone involvement without evidence of necrosis Category: Medical Code(s): E11.621 - Type 2 diabetes mellitus with foot ulcer; L97.519 - Non-pressure chronic ulcer of other part of right foot with unspecified severity (4) Diabetic neuropathy: Status: Acute Category: Medical Code(s): E11.40 - Type 2 diabetes mellitus with diabetic neuropathy, unspecified (5) Coronary artery disease: Status: Acute Category: Medical Code(s): I25.10 - Atherosclerotic heart disease of [place] coronary artery without angina pectoris (6) Peripheral vascular disease: Status: Acute Category: Medical Code(s): I73.9 - Peripheral vascular disease, unspecified (7) Chronic hyponatremia: Status: Acute Category: Medical Code(s): E87.1 - Hypo-osmolality and hyponatremia (8) Macrocytic anemia: Status: Acute Category: Medical Code(s): D53.9 - Nutritional anemia, unspecified Plan This is a 64-year-old male that is brought to the ED from his intermediate facility for inflamed chronic right foot diabetic wound and concerns for sepsis. Problems addressed as follows: Severe sepsis, present on admission, improving Tachycardia, leukocytosis, lactic acidosis, right foot source IV fluid resuscitation with lactic acid trend Blood cultures pending Wound cultures pending MRSA screen pending Trending labs and inflammatory markers IV antibiotic therapy Bacteremia Preliminary blood cultures with Bacteroides and group B strep. Repeat blood cultures pending PICC line placed 02/05 IV antibiotic therapy Right foot cellulitis Chronic right foot diabetic ulcer Diabetes with peripheral neuropathy Podiatry consult Discussed case this morning with podiatry. Will continue with Zyvox IV to complete 14 days of antibiotics. Transition to Levaquin to complete broad- spectrum coverage. Wound culture growing MRSA. GAUDENCIO to remain in place until follow-up with podiatry as an outpatient. CT scan of right foot: No osteomyelitis noted, cellulitis and edema Operative cultures showing MRSA. Discontinue IV Zosyn Pain control Case management assisting with discharge planning, anticipate discharge back to long-term care facility tomorrow Ileus-resolved Concerns with diabetic gastroparesis KUB with distended stomach NG tube care discontinued by patient General Surgery consult reviewed Trending labs and inflammatory markers Small bowel follow-through with no obstruction Gently advancing diet (no carbonation) Accurate I's and O's Coronary artery disease S/P [facility] 2019 with no intervention Previous cardiac catheterization with stent deployment as noted Cardiology preop evaluation reviewed antiplatelet therapy Statin therapy Beta-drea therapy ARB therapy Chronic hyponatremia-resolved Trending electrolytes and creatinine Chronic SSRI therapy noted Macrocytic anemia Iron studies with iron saturation 20% Hemoglobin low this morning at 6.2, down from 7 yesterday and 10 on admission. Will replace with 2 units packed red blood cells. 2-hour post H&H. Repeat CBC ordered for the morning Transfusion threshold hemoglobin less than 7 Hypertension Routine blood pressure monitoring Beta-drea therapy ARB therapy Dihydropyridine calcium channel drea therapy Diabetes Routine blood sugar monitoring Hemoglobin A1c 5.4% Basal insulin therapy Sliding scale insulin therapy Consistent carbohydrate diet Full code [place] diet
--- NOTE | 2024-02-07 17:45 | PC.NURSE ---
aox4 but difficult to understand at times. 2 units PRBC's transfused this shift and pt tolerated well. 2 bm's this shift. continues to ahve diarrhea.
[2024-02-07] MEDS: 0.9 % SODIUM CHLORIDE 1000ML 1,000 ML 50 ML IV (18:29)
[2024-02-07] MEDS: LEVOFLOXACIN/D5W 750 MG/150 ML 750 MG/150 ML PIGGYBACK 100 MG IV (18:29)
[2024-02-07 19:58] LABS: Hematocrit 57.4 % (42.0-52.0); Hemoglobin 18.3 g/dL (14.1-18.0)
[2024-02-07] MEDS: TAMSULOSIN 0.4MG CAPSULE 0.4 MG PO (21:17)
[2024-02-07] MEDS: ATORVASTATIN 40MG TABLET 80 MG PO (21:18)
[2024-02-07] MEDS: PANTOPRAZOLE 40MG TABLET 40 MG PO (21:18)
[2024-02-07] MEDS: INSULIN GLARGINE 100 UNITS/ML 3ML FLEXPEN 10 UNIT SQ (21:20)
[2024-02-07 22:26] LABS: POC Glucose,Bedside 154 (70-110)
[2024-02-08] VITALS (7 sets, daily range): BP systolic 145–174; BP diastolic 73–80; PULSE 68–80; RESP 16–21; TEMP 36.4–37.1; O2SAT 96–99; BMI 36.6
[2024-02-08] MEDS: ACETAMINOPHEN 500MG TAB 1000 MG PO (01:49)
[2024-02-08 02:08] LABS: Hematocrit 24.7 % (42.0-52.0)
[2024-02-08 02:20] LABS: Hemoglobin 8.1 g/dL (14.1-18.0)
[2024-02-08 06:30] LABS: POC Glucose,Bedside 146 (70-110)
--- NOTE | 2024-02-08 08:16 | EXP.DC.SUM ---
General Admission date:: 02/04/24 Discharge date: 02/08/24 HPI HPI HPI: This is a 64-year-old gentleman seen in consultation from the primary service for evaluation regarding postoperative nausea/vomiting. He underwent right foot incision and drainage with wide debridement of nonviable tissue/bone and partial 1?2 ray amputation yesterday by the podiatry service. Overnight he developed increasing abdominal discomfort/epigastric pain with episodic nausea/vomiting. Initial attempts at nasogastric tube placement this morning were unsuccessful. The nasogastric tube was apparently coiling in the esophagus . The patient significantly burped during attempted nasogastric tube placement. Follow-up films revealed significant decrease in overall gastric distention. Forwarded from admission H&P: Patient is a 64-year-old alf resident sent in today for worsening of his wound over his right foot. One of our nurses who works at his alf knows him well and has been evaluating this wound chronically and she states that the plantar aspect of his wound was there last week but the medial aspect of the redness and swelling is new over the last few days. long-term also noted that he may be altered but according to our nurse in the ED he is at his mental baseline. Patient is awake alert answering questions to me and tells me that he has no other complaints does not have any significant pain fevers etc. Podiatry Consult: Patient is a 64M who presents from [facility] with complaints of worsening right foot ulcer and infection. Patient reports a decreased appetite. He has not eaten today. He denies vomiting, fever/chills. Reports occasional shortness of breath. Pt is following with [facility] cardiology. Card consulted for cardiac clearance prior to surgery. Due to significant soft tissue infection and suspected gas on the plain film x-ray, CT pending will plan for OR today for I&D and debridement of nonviable soft tissue and bone. Hospital Course Hospital Course Hospital Course: This is a 64-year-old male that is brought to the ED from his alf facility for inflamed chronic right foot diabetic wound and concerns for sepsis. Improving after surgery. Stable to DC back to [facility] care facility. Problems addressed as follows: Severe sepsis, present on admission, resolved Tachycardia, leukocytosis, lactic acidosis, right foot source on admission. Resuscitated with IV fluids on admission. Started on empiric antibiotics. Symptoms defervesced. Plan to complete 14 days of antibiotics. Wound cultures showing staph, GBS and bacteroides Bacteremia Preliminary blood cultures with Bacteroides and group B strep. Sensitive to Antibiotics used during admission. Transition to Zyvox and Levaquin to complete 14days total of therapy. PICC in place as of 02/06/24 Remove PICC after completion of antibiotics. recommend repeat CBC, CMP after completion of abx. Right foot cellulitis Chronic right foot diabetic ulcer Diabetes with peripheral neuropathy Podiatry consulted. Taken for surgery on 02/04/24. Procedure performed: Right foot incision and drainage, Right foot wide excision and debridement of nonviable soft tissue and bone, Partial 1-2nd ray amputation, GAUDENCIO drain placed. Will continue with Zyvox IV to complete 14 days of antibiotics. Transition to Levaquin to complete broad-spectrum coverage. Wound culture growing MRSA. GAUDENCIO to remain in place until follow-up with podiatry as an outpatient. CT scan of right foot: No osteomyelitis noted, cellulitis and edema. Ileus-resolved Concerns with diabetic gastroparesis. KUB with distended stomach. Sx resolved. having BMs Coronary artery disease S/P [facility] 2019 with no intervention. Previous cardiac catheterization with stent deployment as noted. Patient was evaluated by cardiology preoperatively. Stable to proceed with amputation. Holding antiplatelet therapy and aspirin due to bleeding at this time. Continue statin and beta-drea therapy with ARB therapy. Chronic hyponatremia-resolved Macrocytic anemia Iron studies with iron saturation 20%. Hemoglobin of 10 on admission, dropped to 6.2 on 913. Was transfused with 2 units. Improved to 8.2. Remained stable for 24 hours after transfusion. Recommend holding antiplatelet therapy until bleeding has resolved and wound is healing. Consider resuming in the next week. Recommend repeat CBC in 4 days to monitor stability of hemoglobin and potential need for further transfusion. Transfusion threshold with hemoglobin of less than 7. Hypertension Routine blood pressure monitoring. continue home therapy Diabetes Routine blood sugar monitoring. Hemoglobin A1c 5.4%. Him home insulin regimen. Recommend repeat A1c in 3 months. May consider decreasing insulin if A1c remains less than 6 Stable discharge back to [facility] for further care. Nonweightbearing on right foot. Follow-up with podiatry in the next week. Total time spent on discharge 35 minutes in counseling, documentation, chart review, and direct care with patient. Exam Data for Last 24 hours Vital signs and Labs for Last 24 Hours: Temp Pulse Resp BP Pulse Ox O2 Del Method 98.8 F 74 16 147/74 H 96 Room Air 02/08/24 04:00 02/08/24 04:00 02/08/24 04:00 02/08/24 04:00 02/08/24 04:00 02/08/24 07:00 Laboratory Results - last 24 hr 02/07/24 05:42: WBC 9.8, RBC 1.89 L*, Hgb 6.2 L*, Hct 19.7 L*, MCV 103.8 H, MCH 32.8 H, MCHC 31.6 L, RDW 14.5, Plt Count 327, MPV 8.8, Neut % (Auto) 69.2, Lymph % (Auto) 18.5, Andrews % (Auto) 8.6, Eos % (Auto) 3.4, Baso % (Auto) 0.4, Neut # (Auto) 6.8, Lymph # (Auto) 1.8, Andrews # (Auto) 0.8, Eos # (Auto) 0.3, Baso # (Auto) 0.0, Total Counted 100, Neutrophils % (Manual) 71, Lymphocytes % (Manual) 23, Monocytes % (Manual) 5, Eosinophils % (Manual) 1, Nucleated RBCs 1, Platelet Estimate Normal, Poikilocytosis 1+, Anisocytosis 1+, Macrocytosis 1+ 02/07/24 08:40: Blood Type O Positive, Antibody Screen Negative, Crossmatch (AHG) See Detail 02/07/24 11:58: POC Glucose 221 H 02/07/24 19:20: Hgb 18.3 H D, Hct 57.4 H 02/07/24 20:54: POC Glucose 154 H 02/08/24 02:00: Hgb 8.1 L D, Hct 24.7 L 02/08/24 06:18: POC Glucose 146 H I & O for Last 24 hours: Intake & Output 02/05/24 02/06/24 02/07/24 02/08/24 23:59 23:59 23:59 23:59 Intake Total 2018 3662 / 4302 2492 / 2492 540 / 540 Output Total 219 / 2191 1600 / 1600 1120 / 1120 Balance -172 / 468 2062 / 2702 2492 / 1892 -580 / -580 Weight 104.071 kg 101 kg 107.048 kg 103.374 kg Microbiology Reports for the Last 24 Hours: Microbiology 02/04/24 11:30 Foot,Right Gram Stain - Final 02/04/24 11:30 Foot,Right Wound Culture - Preliminary Staphylococcus aureus Strep agalactiae - (group b) 02/04/24 11:35 Blood Antimicrobic Susceptibility - Final Not Reportable 02/04/24 11:35 Blood - Final Not Reportable 02/04/24 11:35 Blood - Final Not Reportable 02/04/24 11:35 Blood - Final Not Reportable 02/04/24 11:35 Blood - Final Not Reportable 02/04/24 11:35 Blood - Final Not Reportable 02/04/24 11:35 Blood - Final Not Reportable 02/04/24 11:35 Blood - Final Not Reportable 02/04/24 11:35 Blood - Final Not Reportable 02/04/24 11:35 Blood - Final Not Reportable 02/04/24 11:35 Blood Blood Culture - Preliminary 02/04/24 18:51 Rectum CRE Surveillance Culture - Final Negative 02/04/24 15:10 Toe,Right Great Gram Stain - Final 02/04/24 15:10 Toe,Right Great Surgical Biopsy Culture - Preliminary 02/04/24 15:00 Foot,Right Bone Culture - Preliminary 02/04/24 15:00 Foot,Right Gram Stain - Final 02/04/24 15:00 Foot,Right Abscess Culture - Preliminary Gram Positive Cocci 02/06/24 09:36 Blood Blood Culture - Preliminary NO GROWTH AFTER 24 HOURS 02/06/24 09:36 Blood Blood Culture - Preliminary NO GROWTH AFTER 24 HOURS 02/04/24 11:05 Blood Blood Culture - Preliminary Strep agalactiae - (group b) Results Data Completed and Pending Labs on day of discharge: Labs from last 24 hours 02/08/24 02/08/24 02/07/24 06:18 02:00 20:54 WBC RBC Hgb 8.1 L D Hct 24.7 L MCV MCH MCHC RDW Plt Count MPV Neut % (Auto) Lymph % (Auto) Andrews % (Auto) Eos % (Auto) Baso % (Auto) Neut # (Auto) Lymph # (Auto) Andrews # (Auto) Eos # (Auto) Baso # (Auto) Total Counted Neutrophils % (Manual) Lymphocytes % (Manual) Monocytes % (Manual) Eosinophils % (Manual) Nucleated RBCs Platelet Estimate Poikilocytosis Anisocytosis Macrocytosis POC Glucose 146 H 154 H Blood Type Antibody Screen Crossmatch ([facility]) 02/07/24 02/07/24 02/07/24 19:20 11:58 08:40 WBC RBC Hgb 18.3 H D Hct 57.4 H MCV MCH MCHC RDW Plt Count MPV Neut % (Auto) Lymph % (Auto) Andrews % (Auto) Eos % (Auto) Baso % (Auto) Neut # (Auto) Lymph # (Auto) Andrews # (Auto) Eos # (Auto) Baso # (Auto) Total Counted Neutrophils % (Manual) Lymphocytes % (Manual) Monocytes % (Manual) Eosinophils % (Manual) Nucleated RBCs Platelet Estimate Poikilocytosis Anisocytosis Macrocytosis POC Glucose 221 H Blood Type O Positive Antibody Screen Negative Crossmatch ([facility]) See Detail 02/07/24 05:42 WBC 9.8 RBC 1.89 L* Hgb 6.2 L* Hct 19.7 L* MCV 103.8 H MCH 32.8 H MCHC 31.6 L RDW 14.5 Plt Count 327 MPV 8.8 Neut % (Auto) 69.2 Lymph % (Auto) 18.5 Andrews % (Auto) 8.6 Eos % (Auto) 3.4 Baso % (Auto) 0.4 Neut # (Auto) 6.8 Lymph # (Auto) 1.8 Andrews # (Auto) 0.8 Eos # (Auto) 0.3 Baso # (Auto) 0.0 Total Counted 100 Neutrophils % (Manual) 71 Lymphocytes % (Manual) 23 Monocytes % (Manual) 5 Eosinophils % (Manual) 1 Nucleated RBCs 1 Platelet Estimate Normal Poikilocytosis 1+ Anisocytosis 1+ Macrocytosis 1+ POC Glucose Blood Type Antibody Screen Crossmatch ([facility]) Preliminary micro results at discharge 02/04/24 11:30 Wound Culture - Preliminary Foot,Right Staphylococcus aureus Strep agalactiae - (group b) 02/04/24 11:35 Blood Culture - Preliminary Blood 02/04/24 15:10 Surgical Biopsy Culture - Preliminary Toe,Right Great 02/04/24 15:00 Bone Culture - Preliminary Foot,Right 02/04/24 15:00 Abscess Culture - Preliminary Foot,Right Gram Positive Cocci 02/06/24 09:36 Blood Culture - Preliminary Blood NO GROWTH AFTER 24 HOURS 02/06/24 09:36 Blood Culture - Preliminary Blood NO GROWTH AFTER 24 HOURS 02/04/24 11:05 Blood Culture - Preliminary Blood Strep agalactiae - (group b) DS: Diagnosis Discharge Diagnosis (1) Severe sepsis: Status: Acute Code(s): A41.9 - Sepsis, unspecified organism; R65.20 - Severe sepsis without septic shock (2) Cellulitis of foot, right: Status: Acute Code(s): L03.115 - Cellulitis of right lower limb (3) Diabetic ulcer of right foot: Status: Acute Code(s): E11.621 - Type 2 diabetes mellitus with foot ulcer; L97.519 - Non-pressure chronic ulcer of other part of right foot with unspecified severity Qualifiers: Diabetes mellitus type: type 2 Diabetic foot ulcer location: other Non-pressure ulcer stage: with bone involvement without evidence of necrosis Qualified Code(s): E11.621 - Type 2 diabetes mellitus with foot ulcer; L97.516 - Non-pressure chronic ulcer of other part of right foot with bone involvement without evidence of necrosis (4) Diabetic neuropathy: Status: Acute Code(s): E11.40 - Type 2 diabetes mellitus with diabetic neuropathy, unspecified (5) Coronary artery disease: Status: Acute Code(s): I25.10 - Atherosclerotic heart disease of [place] coronary artery without angina pectoris (6) Peripheral vascular disease: Status: Acute Code(s): I73.9 - Peripheral vascular disease, unspecified (7) Chronic hyponatremia: Status: Acute Code(s): E87.1 - Hypo-osmolality and hyponatremia (8) Macrocytic anemia: Status: Acute Code(s): D53.9 - Nutritional anemia, unspecified Meds Home Medications and Allergies Home Medications ?Medication ?Instructions ?Recorded ?Confirmed ?Type ranolazine 1,000 mg 1,000 mg PO BID 08/30/20 02/04/24 History tablet,extended release,12 hr albuterol sulfate 90 mcg/actuation 2 puff inhalation QID PRN 08/25/22 02/04/24 History aerosol inhaler SOA,wheeze tamsulosin 0.4 mg capsule 0.4 mg PO HS 01/10/23 02/04/24 History aspirin 81 mg chewable tablet 81 mg PO DAILY 01/24/23 02/04/24 History (Aspirin Childrens) citalopram 20 mg tablet 20 mg PO DAILY 01/24/23 02/04/24 History fluticasone propionate 50 1 spray intranasal BID 01/24/23 02/04/24 History mcg/actuation nasal spray,suspension acetaminophen 500 mg tablet 500 mg PO Q4H PRN Pain 05/07/23 02/04/24 History (Acetaminophen Extra Strength) bisacodyl 10 mg rectal suppository 10 mg DE DAILY PRN Constipation 05/07/23 02/04/24 History (Laxative (bisacodyl)) ferrous sulfate 324 mg (65 mg 324 mg PO DAILY 05/07/23 02/04/24 History iron) tablet,delayed release fluticasone furoate 100 1 inh inhalation DAILY 05/07/23 02/04/24 History mcg-vilanterol 25 mcg/dose inhalation powder (Breo Ellipta) ondansetron HCl 4 mg tablet 4 mg PO Q6H PRN nausea and vomiting 05/07/23 02/04/24 History pantoprazole 40 mg tablet,delayed 40 mg PO BID 05/07/23 02/04/24 History release quetiapine 50 mg tablet 50 mg PO DAILY 05/07/23 02/05/24 History quetiapine 50 mg tablet (Seroquel) 100 mg PO HS 05/07/23 02/04/24 History sennosides 8.6 mg-docusate sodium 2 tab-cap PO BID costipation 05/07/23 02/04/24 History 50 mg tablet (Senexon-S) metformin 1,000 mg tablet 1,000 mg PO BID #180 tabs 09/10/23 02/04/24 Rx potassium chloride 10 mEq 10 meq PO BID #180 caps 12/10/23 02/04/24 Rx capsule,extended release amlodipine 5 mg tablet (Norvasc) 5 mg PO DAILY #90 tabs 01/07/24 02/04/24 Rx insulin aspar prot-insulin aspart 35 unit SQ BID Diabetes 01/07/24 02/04/24 History 100 unit/mL (70-30) subcutaneous pen (Novolog Mix 70-30FlexPen U-100) divalproex 250 mg tablet,delayed 250 mg PO BID 01/08/24 02/04/24 History release loperamide 2 mg capsule 2 mg PO Q4HP PRN Diarrhea 01/08/24 02/05/24 History insulin aspar prot-insulin aspart 35 unit SQ DAILY 02/04/24 02/04/24 History 100 unit/mL (70-30) subcutaneous pen (Novolog Mix 70-30FlexPen U-100) atorvastatin 80 mg tablet 80 mg PO DAILY 02/05/24 02/04/24 History ticagrelor 60 mg tablet (Brilinta) 60 mg PO BID 02/05/24 02/05/24 History levofloxacin 750 mg tablet 750 mg PO DAILY 9 days #9 tabs 02/08/24 Rx linezolid in 5% dextrose in water 600 mg IV Q12H 9 days #3,000 mL 02/08/24 Rx 600 mg/300 mL intravenous piggyback (Zyvox) New Prescriptions to Start Prescriptions: levofloxacin Fabián Owen linezolid in dextrose 5% [Zyvox] Fabián Owen Allergies Allergy/AdvReac Type Severity Reaction Status Date / Time morphine [MORPHINE] Allergy Severe I-ITCHING Verified 01/16/24 13:17 influenza virus vaccine qs Allergy Unknown Verified 01/16/24 13:17 2019- (6 mos and up) allergy [From Fluarix Quad [id number] reaction (PF)] Discharge Plan Disposition Patient Disposition: Xfer Intermediate Care Fac Condition: Fair Discharge Order Discharge Orders: Discharge Order (Routine); Ordered 02/08/24 Ordered By: Fabián Owen Follow up Plan Follow up with: Darleen Flower DPM [Staff Physician] - Enter time for follow up (please call for appointment ) Prescriptions/Medication Reconciliation: New linezolid in dextrose 5% [Zyvox] 600 mg/300 mL Piggyback 600 mg IV Q12H 9 Days Qty: 3000 0RF Rx Instructions: last dose evening of 02/17/24 levofloxacin 750 mg tablet 750 mg PO DAILY 9 Days Qty: 9 0RF Rx Instructions: due to start on 02/08, end 02/16 Continued fluticasone propionate 50 mcg/actuation spray,suspension 1 spray intranasal BID Rx Instructions: administer into each nostril citalopram 20 mg tablet 20 mg PO DAILY tamsulosin 0.4 mg capsule 0.4 mg PO HS divalproex 250 mg tablet,delayed release (DR/EC) 250 mg PO BID loperamide 2 mg capsule 2 mg PO Q4HP PRN (Reason: Diarrhea) acetaminophen [Acetaminophen Extra Strength] 500 mg tablet 500 mg PO Q4H PRN (Reason: Pain) bisacodyl [Laxative (bisacodyl)] 10 mg suppository 10 mg DE DAILY PRN (Reason: Constipation) ondansetron HCl 4 mg tablet 4 mg PO Q6H PRN (Reason: nausea and vomiting) fluticasone furoate-vilanterol [Breo Ellipta] 100-25 mcg/dose blister with device 1 inh inhalation DAILY ferrous sulfate 324 mg (65 mg iron) tablet,delayed release (DR/EC) 324 mg PO DAILY pantoprazole 40 mg tablet,delayed release (DR/EC) 40 mg PO BID quetiapine 50 mg tablet 50 mg PO DAILY quetiapine [Seroquel] 50 mg tablet 100 mg PO HS sennosides-docusate sodium [Senexon-S] 8.6-50 mg tablet 2 tab-cap PO BID metformin 1,000 mg tablet 1,000 mg PO BID Qty: 180 3RF potassium chloride 10 mEq capsule, extended release 10 meq PO BID Qty: 180 3RF insulin asp prt-insulin aspart [Novolog Mix 70-30FlexPen U-100] 100 unit/mL (70-30) insulin pen 35 unit SQ BID amlodipine [Norvasc] 5 mg tablet 5 mg PO DAILY Qty: 90 3RF ranolazine 1,000 MG tablet extended release 12 hr 1,000 mg PO BID insulin asp prt-insulin aspart [Novolog Mix 70-30FlexPen U-100] 100 unit/mL (70-30) insulin pen 35 unit SQ DAILY atorvastatin 80 mg tablet 80 mg PO DAILY albuterol sulfate 90 mcg/actuation Hfa Aerosol Inhaler 2 puff INHALATION QID PRN (Reason: SOA,wheeze) Held aspirin [Aspirin Childrens] 81 mg tablet,chewable 81 mg PO DAILY Hold Instructions: pending cessation of bleeding in right foot Brilinta 60 mg tablet 60 mg PO BID Hold Instructions: pending cessation of bleeding in foot Discontinued lactulose 10 gram/15 mL solution 20 g PO DAILY PRN (Reason: Constipation) Problem Reconciliation Problems Reviewed?: Yes Patient Discharge Instructions ACTIVITY: Other DIET: continue same diet Additional Instructions: non weight bearing on right foot Patient Instructions: DI for Cellulitis -- Adult, DI for Surgical Site Infection, DI for Sepsis -- Adult, DI for Incision and Drainage Print Language: [place] Providers Primary Care Provider: Provider,Referral Admit Provider: Davey Alvarenga Attending Provider: Davey Alvarenga
[2024-02-08 08:25] LABS: Basophils # 0.1 K/mm3 (0-0.2); Basophils % 0.8 % (0.1-2.0); Eosinophils # 0.3 K/mm3 (0.0-0.4); Eosinophils % 3.6 % (0.1-12.0); Hemoglobin 8.2 g/dL (14.1-18.0); Lymphocytes # 1.4 K/mm3 (0.7-4.5); Lymphocytes % 18.8 % (10-50); Mean Corpuscular HGB Conc 31.4 g/dL (31.8-35.4); Mean Corpuscular Hemoglobin 31.9 pg (27.0-31.2); Mean Corpuscular Volume 101.6 fl (80-94); Mean Platelet Volume 8.3 fl (7.4-10.4); Monocytes # 0.6 K/mm3 (0.1-1.0); Monocytes % 8.2 % (1.7-9.3); Neutrophils # 5.2 K/mm3 (1.8-7.8); Neutrophils % 68.6 % (37.0-80.0); Platelet Count 331 K/mm3 (142-424); Red Blood Count 2.55 M/mm3 (4.60-6.20); Red Cell Distribution Width 15.9 % (11.5-17.5); White Blood Count 7.6 K/mm3 (4.8-10.8)
[2024-02-08] MEDS: CITALOPRAM 20MG TABLET 20 MG PO (08:45)
[2024-02-08] MEDS: AMLODIPINE 5MG TABLET 5 MG PO (08:45)
[2024-02-08] MEDS: QUETIAPINE 25MG TABLET 50 MG PO (08:46)
[2024-02-08] MEDS: ASCORBIC ACID 500MG TAB 500 MG PO (08:46)
[2024-02-08] MEDS: FERROUS SULFATE 325MG TABLET 325 MG PO (08:46)
[2024-02-08] MEDS: VITAMIN B-12 1,000 MCG 1ML VIAL 1000 MCG IM (08:46)
[2024-02-08] MEDS: CALCIUM CARBONATE 500MG CHEWTAB 500 MG PO ×2 (08:46→21:18)
[2024-02-08] MEDS: LINEZOLID 600 MG/300 ML IV.SOLN 300 MG IV (08:53)
[2024-02-08] MEDS: levoFLOXacin 750 MG TABLET PO (10:12)
[2024-02-08 10:15] LABS: Alanine Aminotransferase 61 U/L (12-78); Albumin Level 2.6 g/dl (3.5-5.0); Albumin/Globulin Ratio 0.8 (1.1-1.8); Aspartate Amino Transferase 73 U/L (17-59); Blood Urea Nitrogen 5 mg/dl (9-20); Calcium 7.5 mg/dl (8.4-10.2); Carbon Dioxide 24 mmol/L (22.0-30.0); Chloride 109 mmol/L (98-107); Creatinine Clearance Estimated 106 mL/min (50-200); Estimated Glomerular Filt Rate 135 ml/min (>60); GFR (African American) 163 ML/MIN (>60); Globulin 3.3 g/dL (1.3-3.2); Glucose 126 mg/dl (74-100); Magnesium 1.6 mg/dl (1.6-2.3); Sodium 136 mmol/L (136-145); Total Protein,Serum 5.9 g/dl (6.3-8.2)
[2024-02-08 10:16] LABS: Bilirubin,Total 0.5 mg/dl (0.2-1.3)
[2024-02-08 10:22] LABS: POC Glucose,Bedside 186 (70-110)
[2024-02-08 11:03] LABS: Alkaline Phosphatase 72 U/L (38-126)
[2024-02-08 17:37] LABS: POC Glucose,Bedside 154 (70-110)
--- NOTE | 2024-02-08 17:53 | PC.NURSE ---
Notified [facility] about ambulance delay and pt would not return back to their facility until after 1999 this evening. Staff stated it would be okay for pt to return that late.
--- NOTE | 2024-02-08 18:46 | PC.NURSE ---
PT IS WAITING FOR AMBULANCE TRANSFER TO GO BACK TO [facility]. ALERT AND ORIENTED X4. EATING AND DRINKING FAIR. DRESSING TO THE RIGHT FOOT CHANGED THIS SHIFT. GAUDENCIO DRAIN INTACT WITH MINIMAL DRAINAGE NOTED. LUNG SOUNDS DIMINISHED. ABDOMEN SOFT/TENDER WITH ACTIVE BOWEL SOUNDS. PT HAS HAD SEVERAL BOWEL MOVEMENTS THIS SHIFT. VOIDING WELL. WILL CONTINUE TO MONITOR.
[2024-02-08] MEDS: PANTOPRAZOLE 40MG TABLET 40 MG PO (21:18)
[2024-02-08] MEDS: INSULIN GLARGINE 100 UNITS/ML 3ML FLEXPEN 10 UNIT SQ (21:18)
[2024-02-08] MEDS: TAMSULOSIN 0.4MG CAPSULE 0.4 MG PO (21:18)
[2024-02-08] MEDS: ATORVASTATIN 40MG TABLET 80 MG PO (21:18)
[2024-02-08 21:23] LABS: POC Glucose,Bedside 143 (70-110)
== END 2024-02-08 23:45 | DRG 853 ==
LOC: ER 12:46 → 2ND 12:55
PROVIDERS: Internal Medicine Adolescent Medicine; Nurse Practitioner Family; Podiatrist; Admitting Provider Family Medicine; Emergency Provider Student in an Organized Health Care Education/Training Program; Visit Provider Family Medicine
PROC: 0Y6M0Z9 Detachment at Right Foot, Partial 1st Ray, Open Approach (ICD-10-PCS; principal; 2024-02-04 14:00)
DX: A40.1 Sepsis due to streptococcus, group B (principal); A48.0 Gas gangrene; L03.115 Cellulitis of right lower limb; L97.516 Non-pressure chronic ulcer of other part of right foot with bone involvement without evidence of necrosis; E87.1 Hypo-osmolality and hyponatremia; K56.7 Ileus, unspecified; K91.89 Other postprocedural complications and disorders of digestive system; E11.52 Type 2 diabetes mellitus with diabetic peripheral angiopathy with gangrene; A41.59 Other Gram-negative sepsis; R65.20 Severe sepsis without septic shock; E11.621 Type 2 diabetes mellitus with foot ulcer; E66.9 Obesity, unspecified; E11.40 Type 2 diabetes mellitus with diabetic neuropathy, unspecified; I25.10 Atherosclerotic heart disease of native coronary artery without angina pectoris; I73.9 Peripheral vascular disease, unspecified; D53.9 Nutritional anemia, unspecified; I10 Essential (primary) hypertension
CPT/HCPCS: 28810 ×2; 20240; 36569; 36410; 36415; 71045; 73630; 73701; 74018; 74250; 80048; 80053; 82607; 82962; 83036; 83540; 83550; 83605; 83735; 84145; 85007; 85014; 85018; 85025; 85027; 85048; 85049; 85610; 85651; 85730; 86140; 86850; 87040; 87045; 87070; 87075; 87077; 87081; 87186; 87205; 88304; 88305; 93005; 93923; 96374; 97110; 97163; 97166; 97530; 99291; C1751; J1170; J1580; J1956; J2020; J2405; J2543; J2550; J3370; J3420; J3475; J7030; J7120; P9016; Q9963; Q9967; S0028

== ENCOUNTER 2024-02-13 16:14 | Outpatient (CLI) | payer MEDICARE, MEDICAID, SELFPAY | END 2024-02-13 23:59 | disposition home or self-care (01) | LOC: LAB.DROPOF 16:14 | PROVIDERS: PCP Podiatrist; Visit Provider Podiatrist | DX: E08.621 Diabetes mellitus due to underlying condition with foot ulcer (principal); L97.515 Non-pressure chronic ulcer of other part of right foot with muscle involvement without evidence of necrosis; S91.309A Unspecified open wound, unspecified foot, initial encounter; Z98.890 Other specified postprocedural states | CPT/HCPCS: 87070; 87077; 87186; 87205 ==

== ENCOUNTER 2024-02-25 12:15 | Outpatient (CLI) | payer MEDICARE, MEDICAID, SELFPAY ==
[2024-02-25 13:20] VITALS: BMI 40.1
--- NOTE | 2024-02-25 13:21 | XR_ITS ---
FINAL REPORT CLINICAL HISTORY: PICC placement confirmation COMPARISON: 02/06/2024 FINDINGS: SINGLE-VIEW CHEST The heart size is normal. The mediastinum is normal. PICC line tip terminates in the SVC. There is calcified granuloma in the left upper lobe. The lungs are otherwise clear. There is no pneumothorax. IMPRESSION: No acute cardiopulmonary process. Reviewed, Interpreted and Dictated by Rashi Cordero MD Transcribed by Maya Hopper Authenticated and [facility]
== END 2024-02-25 16:10 | disposition home or self-care (01) ==
PROVIDERS: PCP Family Medicine; Visit Provider Family Medicine
DX: Z45.2 Encounter for adjustment and management of vascular access device (principal)
CPT/HCPCS: 36410; 36569; 71045; C1751

== ENCOUNTER 2024-02-26 10:07 | Day surgery (SDC) | payer MEDICARE, MEDICAID, SELFPAY ==
[2024-02-24 13:51] VITALS: BMI 36.9
[2024-02-26] VITALS (10 sets, daily range): BP systolic 119–150; BP diastolic 49–90; PULSE 86–103; RESP 16–18; TEMP 36.7–36.8; O2SAT 95–100
[2024-02-26 10:39] LABS: POC Glucose,Bedside 76 (70-110)
[2024-02-26] MEDS: LACTATED RINGERS 1000ML 1,000 ML 25 ML IV (10:49)
--- NOTE | 2024-02-26 11:06 | EXP.ANES.CKL ---
[facility] Disclaimer: The information contained in this section may have been updated after the patient was seen, as this information can be updated by other users. Medical History Anemia Diabetes mellitus (Unknown) Acute right otitis media Otitis externa of right ear Impacted cerumen of both ears Fatigue Dyspnea Abnormal electrocardiogram [ECG] [EKG] Hyponatremia Angina at rest Lower extremity edema Obesity, Class II, BMI 35-39.9, isolated (see actual BMI) Coronary artery disease Diabetic neuropathy Hypertensive heart disease without heart failure Coronary artery disease Diabetic neuropathy Diabetic ulcer of left foot Fungal ear infection Noncompliance Osteomyelitis of second toe of right foot Other hyperlipidemia Renal insufficiency Sepsis with acute respiratory failure Systemic inflammatory response syndrome (SIRS) Typical angina Impacted cerumen, bilateral Other asthma Right chronic otitis media Healed perforated eardrum Perforated tympanic membrane of both ears on examination Foreign body in right ear Impacted cerumen of left ear Tinnitus Hearing Loss Complicated urinary tract infection Acute urinary retention Elevated erythrocyte sedimentation rate Hemoptysis Acute subdural hematoma Epidural hematoma Finger infection Fall Diarrhea Suppurative tenosynovitis of flexor tendon Abscess of finger of left hand Concussion without loss of consciousness Weakness Shortness of breath Other acute osteomyelitis, left ankle and foot Postoperative wound dehiscence Cellulitis Left leg cellulitis Closed head injury Fall Unstable angina Abscess Laceration Atypical chest pain Onychodystrophy Postoperative edema Diabetic polyneuropathy associated with type 2 diabetes mellitus Abscess of left leg Cellulitis of left lower leg SIRS (systemic inflammatory response syndrome) Fever Sepsis Cellulitis Bacteremia Cellulitis of left foot Osteomyelitis of great toe of left foot Diabetic ulcer of left great toe IFEOMA (acute kidney injury) Renal insufficiency Elevated erythrocyte sedimentation rate Obesity (BMI 30-39.9) Hyponatremia Diabetic foot ulcer Diabetic foot infection Costal chondritis Fungal ear infection Sinusitis Bradycardia Dizziness Angina pectoris Typical angina Medication adverse effect Flank pain, acute Stable angina HHD (hypertensive heart disease) Diabetes CAD (coronary artery disease) Surgical History History of transmetatarsal amputation of right foot History of transmetatarsal amputation of right foot Presence of stent in coronary artery History of partial ray amputation of second toe of left foot Status post foot surgery History of partial amputation of toe Stented coronary artery Family History Other No significant family history Social History (Updated 02/26/24 @ 10:29 by Barbara Guzman RN) Smoking Status: Unknown if ever smoked second hand exposure: No alcohol intake: never substance use type: denies use current occupational status: disabled Travel in the last 8 weeks: None household members: other housing: care home marital status: current occupational exposures/hazards: No caffeine: Yes [facility] Anesthesia Checklist Patient Identification Patient Identification: Arm Band Structural Data Admitted From: Home Planned Operative Procedure/s: Right Foot Wound Debridement, [place] Transmetatarsal Amputation Consent for Planned Operative Procedure(s) Verified: Yes Verified Documents: Surgical Consent and History and Physical NPO Status Verified Time NPO: 00:00 Additional verifications Anesthesia Reactions: No Hx Blood Transfusions: No Blood Transfusion Reaction: No Airway Assessment Mallampati Score:: Class II C-Spine Mobility Assessed: Yes TMJ Mobility Assessed: Yes Dentition: Poor Dentition Neurological Assessment Level of Consciousness: Awake, Alert and Appropriate Anesthesia Plan Anesthesia Risk discussed: Yes Anesthesia Plan: Verified ASA Class: III Anesthesia Type: General
[2024-02-26 11:44] LABS: Basophils % 0.2 % (0.1-2.0); Eosinophils # 0.2 K/mm3 (0.0-0.4); Eosinophils % 2.4 % (0.1-12.0); Hematocrit 23.5 % (42.0-52.0); Hemoglobin 7.7 g/dL (14.1-18.0); Lymphocytes # 2.1 K/mm3 (0.7-4.5); Lymphocytes % 32.8 % (10-50); Mean Corpuscular HGB Conc 32.6 g/dL (31.8-35.4); Mean Corpuscular Hemoglobin 32.2 pg (27.0-31.2); Mean Corpuscular Volume 98.6 fl (80-94); Monocytes # 0.4 K/mm3 (0.1-1.0); Monocytes % 6.5 % (1.7-9.3); Neutrophils # 3.7 K/mm3 (1.8-7.8); Neutrophils % 58.2 % (37.0-80.0); Platelet Count 79 K/mm3 (142-424); Red Blood Count 2.38 M/mm3 (4.60-6.20); Red Cell Distribution Width 15.7 % (11.5-17.5); White Blood Count 6.4 K/mm3 (4.8-10.8)
[2024-02-26] MEDS: CEFEPIME HCL 2 GM in 0.9 % SODIUM CHLORIDE 100 ML IV (12:30)
[2024-02-26] MEDS: VANCOMYCIN 1000MG VIAL 1000 MG (12:31)
[2024-02-26] MEDS: GENTAMICIN 80 MG/2 ML VIAL (12:31)
[2024-02-26] MEDS: DAPTOmycin 1,000 MG in 0.9 % SODIUM CHLORIDE 50 ML 100 MG IV (12:32)
--- NOTE | 2024-02-26 14:10 | EXP.ANES.I ---
[facility] Anesthesia Record Part I Anesthesia Record I Intake, IV Amount: 900 Hydration: Adequate Estimated blood loss (mL): 25 Urine output (mL): 0 Blood Products used (#): none Blood Pressure: 150/90 SaO2: 95 Pulse Rate: 88 Airway Patency: Patent Respiratory Rate: 16 Temperature: 98.3 F Patient is:: Drowsy and Stable Stable to PACU at:: 14:10
--- NOTE | 2024-02-26 14:17 | P.OP_ITS ---
Date of procedure: 02/26/24 Pre-op Diagnosis:: Right diabetic foot ulcer Right foot gangrene s/p right foot I&D with partial first and second ray amputations on 02/04/2024 Post-op Diagnosis:: Same Procedure performed:: Right transmetatarsal amputation (TMA)/Lisfranc disarticulation Derotational skin flap, adjacent soft tissue rearrangement Right foot ulcer excision GAUDENCIO drain application Surgeon:: Darleen Flower DPM BUILDING APPRAISER:: Abdi Upton Anesthesia: GETA Estimated blood loss (mL): 20 Clinical Note:: Patient is a 64-year-old male who underwent a right foot I&D with partial first and second ray amputations on 02/04/2024. Patient has subsequently been on oral and IV antibiotics to cover for MRSA, group B strep, E. coli, Proteus mirabilis and MRSA?VRE. He is currently on a regimen of oral doxycycline, PICC line with IV cefepime and Zosyn. Overall foot does appear to be the marcated and the antibiotics are helping. Discussed stage II surgery with washout and definitive closure. We discussed conservative versus surgical treatment options. Conservative treatment options include local wound care, oral and IV antibiotics, change in shoe wear, taping/padding, and off-loading. We discussed surgical intervention for amputation of the remaining toes, derotational skin flap to cover the dorsal and lateral foot after extensive wound debridement. Discussed transmetatarsal versus Lisfranc disarticulation amputation. Patient states I do not care where you cut it I want the black gone and the skin closed . Explained there is a chance that I may not have enough good healthy skin to fully close the wound in which case he may need a skin graft or a wound VAC. [facility] does have wound vacs. Patient understands that there is a chance that the foot may change shape after surgery. Patient also understands that they could have wound healing complications including delayed healing and infection. We discussed that if the wound does not heal, it is possible that they may need a more proximal amputation and could result in further loss of digits, loss of partial foot or loss of leg (BKA). We discussed the risks and benefits in great detail. Other surgical risks include: prolonged pain and swelling, further infection requiring oral or IV antibiotics, delay in healing of soft tissue or bone, nerve or blood vessel damage, CRPS/RSD, DVT/PE, anesthesia complications, and even . All questions answered. Patient verbalized understanding. Consent obtained. Operative findings:: S/p partial 1-2nd ray amputation with miah intact. Central area of the incision 2cm wide left open to drain. On the medial aspect of the foot there is also a 1 cm opening that was left for drainage. The skin maceration has resolved, skin peeling around the incision sites noted. The previous discoloration dusky bruising is now dark black eschar with a well-defined rim of granular tissue. Right foot open wound: full thickness thru skin, subq, deep fascia, exposed tendons, no exposed 1-2nd mets, 11.5 x 7 x 2cm, 90% black e schar, 10% rim granular tissue. Full-thickness wound excision down to level of the bone 2 cm deep. Small ulcer noted on the plantar aspect of the foot subsecond met base, 100% yellow fibrotic, 1.4 x 0.2 x 0.1 cm. That ulcer was also excised full-thickness and sent to as tissue culture. All nonviable soft tissue was debrided and resected along with the metatarsals in their entirety. The cuneiforms look to be intact with no obvious cortical erosion or signs of osteomyelitis. Post debridement there was an open wound that extended across the entire foot over 30 cm? total. The skin from the fifth metatarsal base was rotated medial and dorsal to cover over the first cuneiform. The plantar skin was rotated dorsal and along the medial side of the foot to cover the medial plantar aspect of the navicular cuneiform joint. After the rotational skin flap the wound was closed with no openings noted. Overall prognosis is fair?poor. Patient did have some bleeding but not a lot. Will plan to continue antibiotics for infection coverage until IntraOp specimens result. Operative note:: On this date and time patient was deemed an appropriate surgical candidate. With informed consent signed, the patient was taken to the operating theater. The patient was positioned supine. General anesthesia was induced. No tourniquet used. The extremity was prepped and draped in normal sterile fashion. IV cefepime and daptomycin infused. Right transmetatarsal amputation/Lisfranc disarticulation: Attention was directed to the dorsal medial foot where partial first and second and ray amputations had already been performed. There was gangrenous tissue noted. See operative findings. Full-thickness wide excisional debridement with 15 blade and forceps down to the level of the bone performed removing all nonviable soft tissue. The 3rd through 5th toes were removed and sent for gross pathology. The metatarsals were disarticulated at the cuneiform level. The first metatarsal was sent for bone culture. It did appear intact with some cortical erosion. The 2nd through 5th metatarsals were sent for bone pathology, they appear to be intact with no obvious signs of cortical erosion or osteomyelitis. The cuneiforms looked within normal limits, bone hard, no obvious signs of osteomyelitis noted. All non-viable soft tissue and bone was sharply e xcisionally debrided. Next 3 L of gentamicin irrigation was used to flush the wound and pulse lavage. The wound was reexplored and no further signs of infection noted. Bleeding controlled. No vessels were ligated with electrocautery or hand ties, although some bleeding noted. Right foot adjacent soft tissue rearrangement/derotational skin flap: Due to the significant open wound left from the ulcer and wide excisional debridement, decision was made to perform the derotational skin flap. Since the metatarsals had been removed there was good viable skin noted from the central and lateral aspect of the foot which could be utilized. The lateral skin was rotated dorsal medial to cover the first cuneiform. The skin from the plantar ulcer had been sutured together and it was then rotated dorsal medial to cover over the navicular cuneiform joint. 2-0 Vicryl was used to close skin in an interrupted simple suture fashion. A 7 flat GAUDENCIO drain was inserted medially. [place] were used to reinforce the skin closure. The wounds were cleansed. Betadine soaked Xeroform and dry sterile dressing was then applied to the foot. The patient was awoken from anesthesia and transferred to recovery with vital signs stable and neurovascular status intact. He appeared to tolerate procedure and anesthesia well without complication. Materials: 2-0 Nylon, skin miah, 7 flat GAUDENCIO drain Discharge/Plan: Okay to DC back to SNF when ready and vital signs stable. Discussed possible blood transfusion tranfusion of 1unit PRBC due to low H&H. However patient does have chronic anemia and has had levels ranging from 6?8 normally. Patient was stable in recovery, sitting up and eating comfortably. We discussed admission so patient can get transfusion but he declined. Patient was transferred back to the SNF with vital signs stable. Patient will follow-up with PCP at the [facility] this week. Patient is to maintain dressing clean dry and intact. [facility] ([place]) Orders: -Maintain dressing clean dry and intact to right foot, reinforce as necessary. -Change the GAUDENCIO drain every shift. -Plan for dressing changes per SNF nursing every other day starting Sat02/28/24. -Right foot dressing: betadine soaked gauze, dry gauze, lo/kerlix, abd pad, Jose Luis. -NWB RLE in short fracture boot, walker. *Antibiotic end dates were 02/24/24 but due to recent MRSA, MRSA-VRE wound culture, will extend all abx out until 03/02/24. -Antibiotics: Doxy 100mg po BID (02/09-03/02/24). -PICC, IV abx: Cefepime 1g q12h, IV Zyvox 600mg q12h (ok for oral Zyvox) q12h (02/09-03/02/24). -Plan for labs on 03/02/24: cbc, bmp, esr, crp. Fax to Dr Flower @[phone] -Follow up weekly with Podiatry, 03/03/24. Condition: stable Disposition: same day Specimens:: Path: Right foot toes, right 2-55th mets Culture: Right 1st met bone cx, right foot tissue cx Complications:: None
[2024-02-26 14:35] LABS: POC Glucose,Bedside 91 (70-110)
--- NOTE | 2024-02-26 15:09 | SUR.PHASEII ---
1509: Spoke to lab. PRBC canceled.
--- NOTE | 2024-02-26 15:32 | SUR.PHASEII ---
Spoke to Rossy Ya, CLINICAL INSTRUCTOR- provider is agreeable to pt receiving 1 unit PRBC on an outpatient basis tomorrow. Admitting Representative made aware and worked with Infusion Dept to arrange arrival time for transfusion
--- NOTE | 2024-02-27 09:11 | EXP.ANES.II ---
[facility] Anesthesia Record Part II Anesthesia Record Part II Discharge Time: 14:40 Destination: [facility] PACU nurse assessment reviewed?: Yes Patient Condition:: Good Anesthesia Complications:: None Swallowing reflex intact?: Yes Airway Patency: Patent Cyanosis?: No Blood Pressure: 121/73 SaO2: 96 Respiratory Rate: 16 Pulse Rate: 89 Temperature: 97.5 F Mental Status: Alert & Oriented Pain level:: 0 Nausea and/or vomitting:: None Intake, IV Amount: 1,500 Hydration: Adequate
[2024-02-27 09:13] VITALS: BP 121/73; PULSE 89; RESP 16; TEMP 36.4; O2SAT 96
== END 2024-02-26 15:30 | disposition home or self-care (01) ==
PROVIDERS: Nurse Anesthetist, Certified Registered; PCP Internal Medicine; Visit Provider Podiatrist
PROC: (CPT 28805; principal; 2024-02-26 11:30)
PROC: (CPT 28805; 2024-02-26 11:30)
DX: E11.621 Type 2 diabetes mellitus with foot ulcer (principal); L97.513 Non-pressure chronic ulcer of other part of right foot with necrosis of muscle; E11.42 Type 2 diabetes mellitus with diabetic polyneuropathy; Z91.199 Patient's noncompliance with other medical treatment and regimen due to unspecified reason; Z79.4 Long term (current) use of insulin; Z79.899 Other long term (current) drug therapy; E11.69 Type 2 diabetes mellitus with other specified complication; M86.171 Other acute osteomyelitis, right ankle and foot
CPT/HCPCS: 28805; 36415; 82962; 85025; 86850; 87070; 87077; 87205; 88304; 88305; 88307; 88311; 96374; J0878; J1580; J2405; J3010; J3370; J7120

== ENCOUNTER 2024-02-27 07:53 | Outpatient (CLI) | payer MEDICARE, MEDICAID, SELFPAY ==
[2024-02-27] VITALS (11 sets, daily range): BP systolic 112–129; BP diastolic 56–68; PULSE 85–97; RESP 14–18; TEMP 36.7–36.9; O2SAT 98–100
[2024-02-27] MEDS: SODIUM CHLORIDE 0.9% 10ML FLUSH SYRINGE 10 ML IV (09:57)
[2024-02-27] MEDS: SODIUM CHLORIDE 0.9% 250ML BAG 250 ML IV (09:57)
== END 2024-02-27 12:05 | disposition home or self-care (01) ==
LOC: INF 07:54
PROVIDERS: PCP Internal Medicine; Visit Provider Podiatrist
DX: D64.9 Anemia, unspecified (principal)
CPT/HCPCS: 36430; P9016

== ENCOUNTER 2024-03-01 06:41 | Emergency (ER) | payer MEDICARE, MEDICAID, SELFPAY ==
[2024-03-01 06:41] VITALS: BP 132/70; PULSE 78; RESP 20; TEMP 37.1; O2SAT 99; BMI 36.9
--- NOTE | 2024-03-01 06:55 | ED_ITS ---
Discharge Plan Disposition Patient Disposition: Xfer SNF Condition: Good Prescriptions Prescriptions: No Action aspirin [Aspirin Childrens] 81 mg tablet,chewable 81 mg PO DAILY fluticasone propionate 50 mcg/actuation spray,suspension 1 spray intranasal BID Rx Instructions: administer into each nostril citalopram 20 mg tablet 20 mg PO DAILY (DME) BD AutoShield Duo Pen Needle 30 gauge x 3/16 needle See Rx Instructions .ROUTE .MEDSUPPLY Qty: 100 Rx Instructions: As directed tamsulosin 0.4 mg capsule 0.4 mg PO HS divalproex 250 mg tablet,delayed release (DR/EC) 250 mg PO BID loperamide 2 mg capsule 2 mg PO Q4HP PRN (Reason: Diarrhea) acetaminophen [Acetaminophen Extra Strength] 500 mg tablet 500 mg PO Q4H PRN (Reason: Pain) bisacodyl [Laxative (bisacodyl)] 10 mg suppository 10 mg IN DAILY PRN (Reason: Constipation) ondansetron HCl 4 mg tablet 4 mg PO Q6H PRN (Reason: nausea and vomiting) fluticasone furoate-vilanterol [Breo Ellipta] 100-25 mcg/dose blister with device 1 inh inhalation DAILY pantoprazole 40 mg tablet,delayed release (DR/EC) 40 mg PO BID quetiapine 50 mg tablet 50 mg PO DAILY quetiapine [Seroquel] 50 mg tablet 100 mg PO HS sennosides-docusate sodium [Senexon-S] 8.6-50 mg tablet 2 tab-cap PO BID metformin 1,000 mg tablet 1,000 mg PO BID Qty: 180 3RF potassium chloride 10 mEq capsule, extended release 10 meq PO BID Qty: 180 3RF insulin asp prt-insulin aspart [Novolog Mix 70-30FlexPen U-100] 100 unit/mL (70-30) insulin pen 35 unit SQ BID amlodipine [Norvasc] 5 mg tablet 5 mg PO DAILY Qty: 90 3RF ferrous sulfate 324 mg (65 mg iron) tablet,delayed release (DR/EC) 324 mg PO BID ranolazine 1,000 MG tablet extended release 12 hr 1,000 mg PO BID insulin asp prt-insulin aspart [Novolog Mix 70-30FlexPen U-100] 100 unit/mL (70-30) insulin pen 35 unit SQ DAILY atorvastatin 80 mg tablet 80 mg PO DAILY albuterol sulfate 90 mcg/actuation Hfa Aerosol Inhaler 2 puff INHALATION QID PRN (Reason: SOA,wheeze) Activity Restrictions/Add. Instructions Additional Instructions/Restrictions: You were evaluated in the ER and are appropriate for discharge at this time. Continue all home medications as prescribed. Keep the wound clean and dry. Call Dr. Flower's office first thing Saturday and see if she wants to see you a day early, otherwise follow-up with her as scheduled. Return to the ER with worsening redness, swelling, fevers, or other signs of i nfection or any other new, worsening, or otherwise concerning symptoms., Clinical Impressions Clinical Impression: Drainage from surgical wound Instructions Patient Instructions: DI for Laceration Repair Print Language Print Language: Trinidadian Discharge ED Provider: Zak Severino General Adult HPI General Chief complaint: Wound/Laceration Stated complaint: pulled GAUDENCIO drain out of right foot Time Seen by Provider: 03/01/24 06:45 Mode of Arrival: EMS Source of Information: Patient and EMS Limitations: Physical Limitations Description of Symptoms (Recalled from ER Triage Doc. by RN): 64 M presents from [facility] after he accidentally pulled out his GAUDENCIO drain located on his right foot. Patient is s/p multi toe amputation with Dr. Flower on February 25 r/t infection. Patient has a double lumen PICC located to his LUE which is saline flushed and locked. History of Present Illness HPI narrative: 64-year-old male with history of diabetes who had partial right foot amputation on 02/26/[address] Flower presents to the ER from long-term after he accidentally pulled out his GAUDENCIO drain from the right foot surgical bed. Reviewing operative notes from Dr. Flower, patient had Proteus mirabilis and MRSA-VRE known infections in the foot with diabetic ulcer, gangrene, and it had partial amputation prior to the procedure on 02/25. Plan after this procedure was for patient to continue IV cefepime and Zyvox until 03/02 and follow-up with podiatry on 03/03. Unfortunately tonight patient reports he accidentally pulled out the drain. He is not experiencing any new pain, no new swelling or redness, no fevers, chills, dizziness, or other associated symptoms. Patient and nursing facility were concerned the drain had been prematurely removed and sent him to the ER for evaluation. No other complaints. Related Data Home Medications ?Medication ?Instructions ?Recorded ?Confirmed ranolazine 1,000 mg 1,000 mg PO BID 08/30/20 02/27/24 tablet,extended release,12 hr albuterol sulfate 90 mcg/actuation 2 puff inhalation QID PRN 08/25/22 02/27/24 aerosol inhaler SOA,wheeze tamsulosin 0.4 mg capsule 0.4 mg PO HS 01/10/23 02/27/24 aspirin 81 mg chewable tablet 81 mg PO DAILY 01/24/23 02/27/24 (Aspirin Childrens) citalopram 20 mg tablet 20 mg PO DAILY 01/24/23 02/27/24 fluticasone propionate 50 1 spray intranasal BID 01/24/23 02/27/24 mcg/actuation nasal spray,suspension acetaminophen 500 mg tablet 500 mg PO Q4H PRN Pain 05/07/23 02/27/24 (Acetaminophen Extra Strength) bisacodyl 10 mg rectal suppository 10 mg IN DAILY PRN Constipation 05/07/23 02/27/24 (Laxative (bisacodyl)) fluticasone furoate 100 1 inh inhalation DAILY 05/07/23 02/27/24 mcg-vilanterol 25 mcg/dose inhalation powder (Breo Ellipta) ondansetron HCl 4 mg tablet 4 mg PO Q6H PRN nausea and vomiting 05/07/23 02/27/24 pantoprazole 40 mg tablet,delayed 40 mg PO BID 05/07/23 02/27/24 release quetiapine 50 mg tablet 50 mg PO DAILY 05/07/23 02/27/24 quetiapine 50 mg tablet (Seroquel) 100 mg PO HS 05/07/23 02/27/24 sennosides 8.6 mg-docusate sodium 2 tab-cap PO BID costipation 05/07/23 02/27/24 50 mg tablet (Senexon-S) insulin aspar prot-insulin aspart 35 unit SQ BID Diabetes 01/07/24 02/27/24 100 unit/mL (70-30) subcutaneous pen (Novolog Mix 70-30FlexPen U-100) divalproex 250 mg tablet,delayed 250 mg PO BID 01/08/24 02/27/24 release loperamide 2 mg capsule 2 mg PO Q4HP PRN Diarrhea 01/08/24 02/27/24 insulin aspar prot-insulin aspart 35 unit SQ DAILY 02/04/24 02/27/24 100 unit/mL (70-30) subcutaneous pen (Novolog Mix 70-30FlexPen U-100) atorvastatin 80 mg tablet 80 mg PO DAILY 02/05/24 02/27/24 pen needle,diabetic dual safty 30 #100 ea 02/10/24 02/27/24 gauge x 3/16 (BD AutoShield Duo Pen Needle) ferrous sulfate 324 mg (65 mg 324 mg PO BID 02/27/24 02/27/24 iron) tablet,delayed release Previous Rx's ?Medication ?Instructions ?Recorded metformin 1,000 mg tablet 1,000 mg PO BID #180 tabs 09/10/23 potassium chloride 10 mEq 10 meq PO BID #180 caps 12/10/23 capsule,extended release amlodipine 5 mg tablet (Norvasc) 5 mg PO DAILY #90 tabs 01/07/24 Allergies Allergy/AdvReac Type Severity Reaction Status Date / Time morphine [MORPHINE] Allergy Severe I-ITCHING Verified 02/27/24 10:41 influenza virus vaccine qs Allergy Unknown Verified 02/27/24 10:41 2019- (6 mos and up) allergy [From Fluarix Quad 8945-2549 reaction (PF)] [facility] Disclaimer: The information contained in this section may have been updated after the patient was seen, as this information can be updated by other users. Medical History Anemia Diabetes mellitus (Unknown) Acute right otitis media Otitis externa of right ear Impacted cerumen of both ears Fatigue Dyspnea Abnormal electrocardiogram [ECG] [EKG] Hyponatremia Angina at rest Lower extremity edema Obesity, Class II, BMI 35-39.9, isolated (see actual BMI) Coronary artery disease Diabetic neuropathy Hypertensive heart disease without heart failure Coronary artery disease Diabetic neuropathy Diabetic ulcer of left foot Fungal ear infection Noncompliance Osteomyelitis of second toe of right foot Other hyperlipidemia Renal insufficiency Sepsis with acute respiratory failure Systemic inflammatory response syndrome (SIRS) Typical angina Impacted cerumen, bilateral Other asthma Right chronic otitis media Healed perforated eardrum Perforated tympanic membrane of both ears on examination Foreign body in right ear Impacted cerumen of left ear Tinnitus Hearing Loss Complicated urinary tract infection Acute urinary retention Elevated erythrocyte sedimentation rate Hemoptysis Acute subdural hematoma Epidural hematoma Finger infection Fall Diarrhea Suppurative tenosynovitis of flexor tendon Abscess of finger of left hand Concussion without loss of consciousness Weakness Shortness of breath Other acute osteomyelitis, left ankle and foot Postoperative wound dehiscence Cellulitis Left leg cellulitis Closed head injury Fall Unstable angina Abscess Laceration Atypical chest pain Onychodystrophy Postoperative edema Diabetic polyneuropathy associated with type 2 diabetes mellitus Abscess of left leg Cellulitis of left lower leg SIRS (systemic inflammatory response syndrome) Fever Sepsis Cellulitis Bacteremia Cellulitis of left foot Osteomyelitis of great toe of left foot Diabetic ulcer of left great toe IFEOMA (acute kidney injury) Renal insufficiency Elevated erythrocyte sedimentation rate Obesity (BMI 30-39.9) Hyponatremia Diabetic foot ulcer Diabetic foot infection Costal chondritis Fungal ear infection Sinusitis Bradycardia Dizziness Angina pectoris Typical angina Medication adverse effect Flank pain, acute Stable angina HHD (hypertensive heart disease) Diabetes CAD (coronary artery disease) Surgical History History of transmetatarsal amputation of right foot History of transmetatarsal amputation of right foot Presence of stent in coronary artery History of partial ray amputation of second toe of left foot Status post foot surgery History of partial amputation of toe Stented coronary artery Family History Other No significant family history Social History (Updated 02/27/24 @ 09:13 by Tonja Martinez RN) Smoking Status: Never smoker second hand exposure: No alcohol intake: never substance use type: denies use current occupational status: disabled Travel in the last 8 weeks: None household members: other housing: long-term marital status: current occupational exposures/hazards: No caffeine: Yes Other Medical History Have you received the Flu Vaccine for this season: No Have you received the Pneumonia Vaccine: No ROS Obtained: Yes Systems reviewed as appropriate & no additional complaints except as documented Positive ROS per HPI Physical Exam General General appearance: alert and in no apparent distress Head Head exam: atraumatic and normocephalic Eye Eye exam: Present PERRL and EOMI ENT ENT exam: Present mucous membranes moist Neck Neck exam: Present normal inspection and full ROM Chest Chest inspection: Present symmetric chest wall rise Respiratory Respiratory exam: Absent respiratory distress or stridor Cardiovascular Cardiovascular exam: Present regular rate and normal rhythm Extremities Exam Extremities exam: Present full ROM and other (Palpable DP and PT in right foot) Expanded Lower Extremity Exam Right: Foot/toe exam: Present tenderness, swelling (Tenderness and swelling are appropriate postoperatively.), erythema (Mild postoperative erythema however there is no induration. Capillary refill 2 to 3 seconds in the distal right foot), amputation (Fresh transmetatarsal amputation present. Edwin and sutures intact with no wound dehiscence. There is a small area where there has been tissue however it is still in place and will not be removed at this time. Surrounding tissue of that area is plethoric. ) and other (Remainder of tissue of the foot surrounding the amputation is well-appearing, warm, well- perfused. There is no wound dehiscence. I am able to express serous fluid from the site from where the GAUDENCIO drain was pulled out.) Neurological Exam Neurological exam: Present alert and oriented X3 Psychiatric Psychiatric exam: Present normal affect and normal mood Skin Skin exam: Present warm and dry Medical Decision Making Medical Records Medical records reviewed: Yes I reviewed the patient's medical records. Screening: Per USPSTF and CDC recommendations, given the prevalence of disease in our region, it is our hospital?s policy to screen for HIV and viral Hepatitis for all patients aged 18 and over and those with ongoing risk factors. MR Comment: See HPI Russell Inquiry Pt receiving controlled substance: No Vital Signs: 03/01/24 06:41 Temperature 98.7 F Temperature Source Oral Pulse Rate [Left] 78 Respiratory Rate 20 Blood Pressure [Right Arm] 132/70 Blood Pressure Mean [Right Arm] 90 Blood Pressure Source [Right Arm] Automatic Cuff Blood Pressure Position [Right Arm] Supine 02 Sat by Pulse Oximetry 99 Oxygen Delivery Method Room Air Medical Decision Narrative: In summary, this 64-year-old male presents to the emergency department today with concerns of premature accidental removal of right foot GAUDENCIO drain. Comorbidities of current condition are outlined in HPI and include diabetes with recent transmetatarsal amputation of the right foot. On initial evaluation patient is hemodynamically stable, afebrile, there is small amount of serous/serosanguineous fluid able to be expressed from the drain site on the right foot however there are no findings of infection or wound dehiscence. Differential diagnosis includes but is not limited to accidental GAUDENCIO drain removal, hematoma, seroma, cellulitis, abscess. I do not appreciate any findings of infection clinically and patient is being appropriately treated with IV antibiotics which he did receive prior to being brought to the ER by EMS. I do not believe patient requires any further intervention at this time. No labs or imaging are indicated. Patient has follow-up with podiatry clinic in 48 hours and since he has easy free drainage of serosanguineous fluid from the wound at this time I do not believe consultation with podiatry is necessary. Patient is appropriate for discharge. Facility was given instructions on continued wound care/monitoring, outpatient follow-up, and strict return precautions for the ER. Patient was discharged in stable condition. Critical Care Critical Care Time Critical Care Time: No
[2024-03-01 07:13] VITALS: BP 141/77; PULSE 74; RESP 18; TEMP 36.7; O2SAT 100
--- NOTE | 2024-03-01 07:24 | PC.NURSE ---
[facility] notified of return transfer
--- NOTE | 2024-03-01 07:50 | PC.NURSE ---
foot cleansed and vasaline gauze applied,4x4s on top and wrapped with DWAIN bandage. surgical incision looks well. serosang drainage noted. no odor. wound care directions sent to LTC facility
== END 2024-03-01 07:43 ==
LOC: ER 07:07
PROVIDERS: Emergency Provider Emergency Medicine; PCP Family Medicine
DX: T85.698A Other mechanical complication of other specified internal prosthetic devices, implants and grafts, initial encounter (principal)
CPT/HCPCS: 99282

== ENCOUNTER 2024-03-01 10:19 | Outpatient (CLI) | payer MEDICARE, MEDICAID, SELFPAY ==
[2024-03-01 10:46] LABS: Basophils % 0.2 % (0.1-2.0); Eosinophils # 0.1 K/mm3 (0.0-0.4); Hemoglobin 7.2 g/dL (14.1-18.0); Mean Corpuscular HGB Conc 34.4 g/dL (31.8-35.4); Mean Corpuscular Hemoglobin 31.3 pg (27.0-31.2); Mean Platelet Volume 8.7 fl (7.4-10.4); Monocytes # 0.5 K/mm3 (0.1-1.0); Monocytes % 9.5 % (1.7-9.3); Neutrophils # 3.9 K/mm3 (1.8-7.8); Neutrophils % 71.3 % (37.0-80.0); Platelet Count 68 K/mm3 (142-424); Red Blood Count 2.31 M/mm3 (4.60-6.20); Red Cell Distribution Width 15.7 % (11.5-17.5); White Blood Count 5.5 K/mm3 (4.8-10.8)
== END 2024-03-01 23:59 | disposition home or self-care (01) ==
LOC: LAB.DROPOF 10:21
PROVIDERS: PCP Family Medicine; Visit Provider Family Medicine
DX: R79.9 Abnormal finding of blood chemistry, unspecified (principal)
CPT/HCPCS: 85025

== ENCOUNTER 2024-03-03 15:18 | Observation (INO) | payer MEDICARE, MEDICAID, SELFPAY ==
[2024-03-03] VITALS (14 sets, daily range): BP systolic 131–148; BP diastolic 60–77; PULSE 79–92; RESP 17–18; TEMP 36.6–37.6; O2SAT 92–100; BMI 32.9
--- NOTE | 2024-03-03 15:44 | P.HP_ITS ---
History of Present Illness *Admission Date: 03/03/24 *Reason for visit:: Anemia *History of present illness: 64-year-old male with recent transmetatarsal amputation. Saw podiatry today for follow-up. Concern for worsening anemia at his custodial. Discussed case with both podiatry and patient's provider at his custodial, will admit for transfusion. Patient feeling okay today. Denies significant bleeding from foot. No fever or chills. Stable on room air. [facility] Disclaimer: The information contained in this section may have been updated after the patient was seen, as this information can be updated by other users. Medical History Anemia Diabetes mellitus (Unknown) Acute right otitis media Otitis externa of right ear Impacted cerumen of both ears Fatigue Dyspnea Abnormal electrocardiogram [ECG] [EKG] Hyponatremia Angina at rest Lower extremity edema Obesity, Class II, BMI 35-39.9, isolated (see actual BMI) Coronary artery disease Diabetic neuropathy Hypertensive heart disease without heart failure Coronary artery disease Diabetic neuropathy Diabetic ulcer of left foot Fungal ear infection Noncompliance Osteomyelitis of second toe of right foot Other hyperlipidemia Renal insufficiency Sepsis with acute respiratory failure Systemic inflammatory response syndrome (SIRS) Typical angina Impacted cerumen, bilateral Other asthma Right chronic otitis media Healed perforated eardrum Perforated tympanic membrane of both ears on examination Foreign body in right ear Impacted cerumen of left ear Tinnitus Hearing Loss Complicated urinary tract infection Acute urinary retention Elevated erythrocyte sedimentation rate Hemoptysis Acute subdural hematoma Epidural hematoma Finger infection Fall Diarrhea Suppurative tenosynovitis of flexor tendon Abscess of finger of left hand Concussion without loss of consciousness Weakness Shortness of breath Other acute osteomyelitis, left ankle and foot Postoperative wound dehiscence Cellulitis Left leg cellulitis Closed head injury Fall Unstable angina Abscess Laceration Atypical chest pain Onychodystrophy Postoperative edema Diabetic polyneuropathy associated with type 2 diabetes mellitus Abscess of left leg Cellulitis of left lower leg SIRS (systemic inflammatory response syndrome) Fever Sepsis Cellulitis Bacteremia Cellulitis of left foot Osteomyelitis of great toe of left foot Diabetic ulcer of left great toe IFEOMA (acute kidney injury) Renal insufficiency Elevated erythrocyte sedimentation rate Obesity (BMI 30-39.9) Hyponatremia Diabetic foot ulcer Diabetic foot infection Costal chondritis Fungal ear infection Sinusitis Bradycardia Dizziness Angina pectoris Typical angina Medication adverse effect Flank pain, acute Stable angina HHD (hypertensive heart disease) Diabetes CAD (coronary artery disease) Surgical History History of transmetatarsal amputation of right foot History of transmetatarsal amputation of right foot Presence of stent in coronary artery History of partial ray amputation of second toe of left foot Status post foot surgery History of partial amputation of toe Stented coronary artery Family History Other No significant family history Social History Smoking Status: Never smoker second hand exposure: No alcohol intake: never substance use type: denies use current occupational status: disabled Travel in the last 8 weeks: None household members: other housing: custodial marital status: current occupational exposures/hazards: No caffeine: Yes Other Medical History Have you received the Flu Vaccine for this season: No Have you received the Pneumonia Vaccine: No Review of Systems Review of Systems Review of systems (narrative): 14 point review of systems performed, pertinent positives and negatives as per HPI Meds Home Medications and Allergies Home Medications ?Medication ?Instructions ?Recorded ?Confirmed ?Type ranolazine 1,000 mg 1,000 mg PO BID 08/30/20 03/03/24 History tablet,extended release,12 hr albuterol sulfate 90 mcg/actuation 2 puff inhalation QID PRN 08/25/22 03/03/24 History aerosol inhaler SOA,wheeze tamsulosin 0.4 mg capsule 0.4 mg PO HS 01/10/23 03/03/24 History aspirin 81 mg chewable tablet 81 mg PO DAILY 01/24/23 03/03/24 History (Aspirin Childrens) citalopram 20 mg tablet 20 mg PO DAILY 01/24/23 03/03/24 History fluticasone propionate 50 1 spray intranasal BID 01/24/23 03/03/24 History mcg/actuation nasal spray,suspension acetaminophen 500 mg tablet 500 mg PO Q4H PRN Pain 05/07/23 03/03/24 History (Acetaminophen Extra Strength) bisacodyl 10 mg rectal suppository 10 mg VA DAILY PRN Constipation 05/07/23 03/03/24 History (Laxative (bisacodyl)) fluticasone furoate 100 1 inh inhalation DAILY 05/07/23 03/03/24 History mcg-vilanterol 25 mcg/dose inhalation powder (Breo Ellipta) ondansetron HCl 4 mg tablet 4 mg PO Q6H PRN nausea and vomiting 05/07/23 03/03/24 History pantoprazole 40 mg tablet,delayed 40 mg PO BID 05/07/23 03/03/24 History release quetiapine 50 mg tablet 50 mg PO DAILY 05/07/23 03/03/24 History quetiapine 50 mg tablet (Seroquel) 100 mg PO HS 05/07/23 03/03/24 History sennosides 8.6 mg-docusate sodium 2 tab-cap PO BID costipation 05/07/23 03/03/24 History 50 mg tablet (Senexon-S) metformin 1,000 mg tablet 1,000 mg PO BID #180 tabs 09/10/23 03/03/24 Rx amlodipine 5 mg tablet (Norvasc) 5 mg PO DAILY #90 tabs 01/07/24 03/03/24 Rx divalproex 250 mg tablet,delayed 250 mg PO BID 01/08/24 03/03/24 History release loperamide 2 mg capsule 2 mg PO Q4HP PRN Diarrhea 01/08/24 03/03/24 History atorvastatin 80 mg tablet 80 mg PO DAILY 02/05/24 03/03/24 History ferrous sulfate 324 mg (65 mg 324 mg PO BID 02/27/24 03/03/24 History iron) tablet,delayed release New Prescriptions to Start Prescriptions: Allergies Allergy/AdvReac Type Severity Reaction Status Date / Time morphine [MORPHINE] Allergy Severe I-ITCHING Verified 03/03/24 14:43 influenza virus vaccine qs Allergy Unknown Verified 03/03/24 14:43 2019- (6 mos and up) allergy [From Fluarix Quad reaction (PF)] Exam Constitutional Constitutional: no acute distress, morbidly obese, chronically ill appearing and cooperative *Routine HEENT Exam Head: Present normocephalic and atraumatic Eye: Present EOMI and PERRL ENT: Present mucous membranes moist; Absent dentition normal *Routine Neck Exam Neck: Absent JVD or lymphadenopathy *Routine Respiratory Exam Respiratory: Present rhonchi, normal respiratory effort and symmetric chest movement *Routine Cardiovascular Exam Cardiovascular: Present RRR *Routine Abdominal Exam Abdominal: Present soft and normoactive bowel sounds *Routine Rectal Exam Rectal:: deferred *Routine Genitalia Exam Genitalia:: deferred *Routine Extremities Exam Extremities: Absent edema or full ROM Comments: Right foot in postop dressing with absence of distal forefoot *Routine Skin Exam Skin: Present dry and wounds *Routine Neurological Exam Neurological: Present alert, oriented X3, moving all extremities, vision grossly intact and hearing grossly intact; Absent sensory deficit or motor deficit Routine Psychiatric Exam Psychiatric: Present cooperative Assessment and Plan *Assessment and plan (1) Anemia: Status: Acute Category: Medical Code(s): D64.9 - Anemia, unspecified (2) Status post partial amputation of right foot: Status: Acute Category: Surgical Code(s): Z89.431 - Acquired absence of right foot (3) History of transmetatarsal amputation of right foot: Status: Acute Category: Surgical Code(s): Z89.431 - Acquired absence of right foot (4) Diabetic neuropathy: Status: Acute Category: Medical Code(s): E11.40 - Type 2 diabetes mellitus with diabetic neuropathy, unspecified (5) Coronary artery disease: Status: Acute Category: Medical Code(s): I25.10 - Atherosclerotic heart disease of [place] coronary artery without angina pectoris (6) Obesity (BMI 30-39.9): Status: Chronic Category: Medical Code(s): E66.9 - Obesity, unspecified (7) Type 2 diabetes mellitus with diabetic polyneuropathy, with long-term current use of insulin: Status: Chronic Category: Medical Code(s): E11.42 - Type 2 diabetes mellitus with diabetic polyneuropathy; Z79.4 - [employer] (current) use of insulin (8) HHD (hypertensive heart disease): Status: Chronic Qualifiers: Heart failure presence: without heart failure Qualified Code(s): I11.9 - Hypertensive heart disease without heart failure Category: Medical Code(s): I11.9 - Hypertensive heart disease without heart failure Plan This is a 64-year-old male who presented from his custodial for evaluation by podiatry. Concern for worsening anemia. Admitted for transfusion. Discussed case with podiatry and patient's physician at nursing facility, repeat labs as an outpatient have showed hemoglobin in the 6 range. I agreed to admit for transfusion and close monitoring of foot overnight. Podiatry to do dressing changes in the morning. Anticipate discharge back to nursing facility tomorrow. Problems addressed as follows: Anemia -Secondary to chronic disease and blood loss - Hemoglobin 7.2, critical hematocrit of 20. Transfused 1 unit packed red blood cells. 2-hour post H&H. If does well overnight, plan to discharge back to custodial tomorrow. Repeat CBC ordered for the morning -Platelets low at 80. No indication for transfusion at this time. Transfusion threshold platelets less than 50 -Anemia microcytic in nature from previous studies. Iron showed low saturation. Right foot cellulitis Chronic right foot diabetic ulcer Diabetes with peripheral neuropathy - Podiatry consulted. Will evaluate patient in the morning. Saw him in clinic today. Wound looks healthy. - Status post partial amputation of right foot, inflammatory markers still elevated with ESR 137, greater than 140 a month ago; CRP improved to 32, down from 221 on 02/05 -Resume empiric antibiotics with vancomycin and Zosyn. Zosyn 3.375 g every 6 hours. Necessitating close monitoring of kidney function for toxicity. Monitor overnight. Repeat CRP, ESR ordered for the morning. Hyponatremia: Sodium 129. Chronic in nature. Kidney function normal with BUN 11, creatinine 1. Coronary artery disease - S/P [facility] 2019 with no intervention. Previous cardiac catheterization with stent deployment as noted. Patient was evaluated by cardiology preoperatively. Holding antiplatelet therapy and aspirin due to bleeding/anemia/thrombocytopenia - Continue statin Chronic hyponatremia-resolved Hypertension: Routine blood pressure monitoring. continue home therapy with amlodipine 5mg daily Diabetes: Fingersticks ACHS, Hemoglobin A1c 5.4% last visit a month ago. Sliding scale insulin during admission. Diabetic diet. Glucose 113 on presentation labs Full code Diabetic diet Holding anticoagulation in the setting of anemia and bleeding from foot
[2024-03-03 16:57] LABS: Basophils % 0.3 % (0.1-2.0); Eosinophils # 0.2 K/mm3 (0.0-0.4); Eosinophils % 2.3 % (0.1-12.0); Hemoglobin 7.2 g/dL (14.1-18.0); Lymphocytes # 1.7 K/mm3 (0.7-4.5); Lymphocytes % 25.7 % (10-50); Mean Corpuscular HGB Conc 34.6 g/dL (31.8-35.4); Mean Corpuscular Hemoglobin 31.5 pg (27.0-31.2); Mean Corpuscular Volume 91.2 fl (80-94); Mean Platelet Volume 8.8 fl (7.4-10.4); Monocytes # 0.5 K/mm3 (0.1-1.0); Monocytes % 7.9 % (1.7-9.3); Neutrophils # 4.1 K/mm3 (1.8-7.8); Neutrophils % 63.9 % (37.0-80.0); Platelet Count 80 K/mm3 (142-424); Red Blood Count 2.29 M/mm3 (4.60-6.20); Red Cell Distribution Width 15.9 % (11.5-17.5); White Blood Count 6.5 K/mm3 (4.8-10.8)
[2024-03-03 16:59] LABS: Chloride 94 mmol/L (98-107); Potassium 4.2 mmoL/L (3.5-5.1); Sodium 129 mmol/L (136-145)
[2024-03-03 17:02] LABS: Alanine Aminotransferase 50 U/L (12-78); Albumin/Globulin Ratio 0.9 (1.1-1.8); Alkaline Phosphatase 73 U/L (38-126); Anion Gap 18.2 mEq/L (5-15); Aspartate Amino Transferase 57 U/L (17-59); Bilirubin,Total 0.6 mg/dl (0.2-1.3); Blood Urea Nitrogen 11 mg/dl (9-20); Calcium 8.5 mg/dl (8.4-10.2); Carbon Dioxide 21 mmol/L (22.0-30.0); Estimated Glomerular Filt Rate 75 ml/min (>60); GFR (African American) 90 ML/MIN (>60); Globulin 3.2 g/dL (1.3-3.2); Glucose 113 mg/dl (74-100); Total Protein,Serum 6.2 g/dl (6.3-8.2)
[2024-03-03 17:04] LABS: Hematocrit 20.9 % (42.0-52.0)
[2024-03-03 17:07] LABS: C-Reactive Protein 32.5 mg/L (0-4)
--- NOTE | 2024-03-03 17:20 | PC.NURSE ---
labs drawn from [facility] line by ALINA HOLGUIN
[2024-03-03 17:22] LABS: Erythrocyte Sedimentation Rate 137 mm/hr (0-20)
--- NOTE | 2024-03-03 17:27 | XR_ITS ---
PROCEDURE INFORMATION: Exam: XR Right Foot Exam date and time: 03/03/2024 6:11 PM Age: 64 years old Clinical indication: Pain; Foot; Right; Prior surgery; Surgery date: <1 month; Surgery type: S/P tma/lisfranc disarticulation TECHNIQUE: Imaging protocol: Radiologic exam of the right foot. Views: 3 or more views. Total images: 3 COMPARISON: CR XR FOOT RT MIN 3V 02/04/2024 4:49 PM FINDINGS: Bones/joints: Status post forefoot amputation at the tarsometatarsal joint level. Mild osseous demineralization. No acute fracture or joint dislocation. No concerning bone lesions. Slight cortical irregularity articular margin of the medial cuneiform likely secondary to prior degenerative arthropathy at the tarsometatarsal joint. If concern for osteomyelitis, recommend follow-up MRI. Small calcaneal enthesophytes. Corticated ossicle at the medial malleolus. Soft tissues: Diffuse soft tissue swelling. Skin miah in place. IMPRESSION: 1. Status post forefoot amputation. 2. Slight cortical irregularity articular margin of the medial cuneiform. This is likely sequela of degenerative arthropathy. If concern for osteomyelitis, recommend follow-up MRI. 3. Diffuse soft tissue swelling.
--- NOTE | 2024-03-03 17:30 | P.CONS_ITS ---
History of Present Illness *Admission Date: 03/03/24 *Reason for visit:: Right foot s/p TMA/Lisfranc amputation *History of present illness: Patient is a 64-year-old diabetic male who was seen in the podiatry office today. Patient underwent surgery 02/26/2024 for right foot transmetatarsal/Lisfranc amputation. He has been on PICC line with IV antibiotics including cefepime, Zyvox and oral doxycycline. Within the last month he has grown MRSA, MRSA?VRE, E. coli, Proteus mirabilis, group B strep. In the office today foot is red. Plan to send patient for new x-rays and labs. Due to his low H&H/anemia, patient was already arranged to have [facility] admission observation stay for blood transfusion and monitoring. Will plan to see patient in the morning again for dressing change and to review labs, right foot x-rays. He will likely need PICC line and IV antibiotics due to growth from the 02/26/2024 IntraOp wound and bone cultures: Currently GNR, final susceptibility/organism pending. [facility] Disclaimer: The information contained in this section may have been updated after the patient was seen, as this information can be updated by other users. Medical History Anemia Diabetes mellitus (Unknown) Acute right otitis media Otitis externa of right ear Impacted cerumen of both ears Fatigue Dyspnea Abnormal electrocardiogram [ECG] [EKG] Hyponatremia Angina at rest Lower extremity edema Obesity, Class II, BMI 35-39.9, isolated (see actual BMI) Coronary artery disease Diabetic neuropathy Hypertensive heart disease without heart failure Coronary artery disease Diabetic neuropathy Diabetic ulcer of left foot Fungal ear infection Noncompliance Osteomyelitis of second toe of right foot Other hyperlipidemia Renal insufficiency Sepsis with acute respiratory failure Systemic inflammatory response syndrome (SIRS) Typical angina Impacted cerumen, bilateral Other asthma Right chronic otitis media Healed perforated eardrum Perforated tympanic membrane of both ears on examination Foreign body in right ear Impacted cerumen of left ear Tinnitus Hearing Loss Complicated urinary tract infection Acute urinary retention Elevated erythrocyte sedimentation rate Hemoptysis Acute subdural hematoma Epidural hematoma Finger infection Fall Diarrhea Suppurative tenosynovitis of flexor tendon Abscess of finger of left hand Concussion without loss of consciousness Weakness Shortness of breath Other acute osteomyelitis, left ankle and foot Postoperative wound dehiscence Cellulitis Left leg cellulitis Closed head injury Fall Unstable angina Abscess Laceration Atypical chest pain Onychodystrophy Postoperative edema Diabetic polyneuropathy associated with type 2 diabetes mellitus Abscess of left leg Cellulitis of left lower leg SIRS (systemic inflammatory response syndrome) Fever Sepsis Cellulitis Bacteremia Cellulitis of left foot Osteomyelitis of great toe of left foot Diabetic ulcer of left great toe IFEOMA (acute kidney injury) Renal insufficiency Elevated erythrocyte sedimentation rate Obesity (BMI 30-39.9) Hyponatremia Diabetic foot ulcer Diabetic foot infection Costal chondritis Fungal ear infection Sinusitis Bradycardia Dizziness Angina pectoris Typical angina Medication adverse effect Flank pain, acute Stable angina HHD (hypertensive heart disease) Diabetes CAD (coronary artery disease) Surgical History History of transmetatarsal amputation of right foot History of transmetatarsal amputation of right foot Presence of stent in coronary artery History of partial ray amputation of second toe of left foot Status post foot surgery History of partial amputation of toe Stented coronary artery Family History Other No significant family history Social History Smoking Status: Never smoker second hand exposure: No alcohol intake: never substance use type: denies use current occupational status: disabled Travel in the last 8 weeks: None household members: other housing: intermediate marital status: current occupational exposures/hazards: No caffeine: Yes Review of Systems Review of Systems Review of systems:: pertinent systems reviewed and negative unless documented below Constitutional Constitutional: Reports system reviewed and no additional complaints, except as documented and Reports as per HPI Eyes Eyes: Reports as per HPI ENT Ears, Nose, Mouth, and Throat: Reports as per HPI *Cardiovascular Cardiovascular: Reports system reviewed and no additional complaints, except as documented and Reports pedal edema *Respiratory Respiratory: Reports system reviewed and no additional complaints, except as documented *Gastrointestinal Gastrointestinal: Reports system reviewed and no additional complaints, except as documented, Denies diarrhea, Denies nausea and Denies vomiting *Genitourinary Genitourinary: Reports system reviewed and no additional complaints, except as documented *Musculoskeletal Musculoskeletal: Reports system reviewed and no additional complaints, except as documented Integumentary/Breasts Skin/Breast: Reports system reviewed and no additional complaints, except as documented, Reports as per HPI, Reports erythema and Reports wounds *Neurologic Neurologic: Reports system reviewed and no additional complaints, except as documented and Reports paresthesias Psychiatric Psychiatric: Reports as per HPI Endocrine Endocrine: Reports as per HPI Hematologic/Lymphatic Hematologic/Lymphatic: Reports as per HPI Allergic/Immunologic Allergic/Immunologic: Reports as per HPI Meds Home Medications and Allergies Home Medications ?Medication ?Instructions ?Recorded ?Confirmed ?Type ranolazine 1,000 mg 1,000 mg PO BID 08/30/20 03/03/24 History tablet,extended release,12 hr albuterol sulfate 90 mcg/actuation 2 puff inhalation QID PRN 08/25/22 03/03/24 History aerosol inhaler SOA,wheeze tamsulosin 0.4 mg capsule 0.4 mg PO HS 01/10/23 03/03/24 History aspirin 81 mg chewable tablet 81 mg PO DAILY 01/24/23 03/03/24 History (Aspirin Childrens) citalopram 20 mg tablet 20 mg PO DAILY 01/24/23 03/03/24 History fluticasone propionate 50 1 spray intranasal BID 01/24/23 03/03/24 History mcg/actuation nasal spray,suspension acetaminophen 500 mg tablet 500 mg PO Q4H PRN Pain 05/07/23 03/03/24 History (Acetaminophen Extra Strength) bisacodyl 10 mg rectal suppository 10 mg OH DAILY PRN Constipation 05/07/23 03/03/24 History (Laxative (bisacodyl)) fluticasone furoate 100 1 inh inhalation DAILY 05/07/23 03/03/24 History mcg-vilanterol 25 mcg/dose inhalation powder (Breo Ellipta) ondansetron HCl 4 mg tablet 4 mg PO Q6H PRN nausea and vomiting 05/07/23 03/03/24 History pantoprazole 40 mg tablet,delayed 40 mg PO BID 05/07/23 03/03/24 History release quetiapine 50 mg tablet 50 mg PO DAILY 05/07/23 03/03/24 History quetiapine 50 mg tablet (Seroquel) 100 mg PO HS 05/07/23 03/03/24 History sennosides 8.6 mg-docusate sodium 2 tab-cap PO BID costipation 05/07/23 03/03/24 History 50 mg tablet (Senexon-S) metformin 1,000 mg tablet 1,000 mg PO BID #180 tabs 09/10/23 03/03/24 Rx amlodipine 5 mg tablet (Norvasc) 5 mg PO DAILY #90 tabs 01/07/24 03/03/24 Rx divalproex 250 mg tablet,delayed 250 mg PO BID 01/08/24 03/03/24 History release loperamide 2 mg capsule 2 mg PO Q4HP PRN Diarrhea 01/08/24 03/03/24 History atorvastatin 80 mg tablet 80 mg PO DAILY 02/05/24 03/03/24 History ferrous sulfate 324 mg (65 mg 324 mg PO BID 02/27/24 03/03/24 History iron) tablet,delayed release New Prescriptions to Start Prescriptions: Allergies Allergy/AdvReac Type Severity Reaction Status Date / Time morphine [MORPHINE] Allergy Severe I-ITCHING Verified 03/03/24 14:43 influenza virus vaccine qs Allergy Unknown Verified 03/03/24 14:43 2018- (6 mos and up) allergy [From Fluarix Quad reaction (PF)] Exam (Inpt) Vital signs and Labs for Last 24 Hours: O2 Del Method Room Air 03/03/24 17:00 Laboratory Results - last 24 hr 03/03/24 16:39: WBC 6.5, RBC 2.29 L, Hgb 7.2 L, Hct 20.9 L*, MCV 91.2, MCH 31.5 H, MCHC 34.6, RDW 15.9, Plt Count 80 L, MPV 8.8, Neut % (Auto) 63.9, Lymph % (Auto) 25.7, [place] % (Auto) 7.9, Eos % (Auto) 2.3, Baso % (Auto) 0.3, Neut # (Auto) 4.1, Lymph # (Auto) 1.7, [place] # (Auto) 0.5, Eos # (Auto) 0.2, Baso # (Auto) 0.0, ESR 137 H, Sodium 129 L, Potassium 4.2, Chloride 94 L, Carbon Dioxide 21 L, Anion Gap 18.2 H, BUN 11, Creatinine 1.00, Estimated GFR 75, Est GFR ( Amer) 90, Glucose 113 H, Calcium 8.5, Total Bilirubin 0.6, AST 57, ALT 50, Alkaline Phosphatase 73, C-Reactive Protein 32.5 H, Total Protein 6.2 L, Albumin 3.0 L, Globulin 3.2, Albumin/Globulin Ratio 0.9 L, Blood Type O Positive, Crossmatch (AHG) See Detail I & O for Labs for Last 24 Hours: Intake & Output 02/02/24 02/03/24 02/04/24 02/05/24 23:59 23:59 23:59 23:59 Intake Total 1700 / 1700 100 / 100 Output Total 440 / 440 0 / 0 Balance 1260 / 1260 100 / 100 Weight 231 lb 9 oz 229 lb 7 oz Microbiology Reports for the Last 24 Hours: Microbiology 02/04/24 11:05 Blood Blood Culture - Preliminary 02/04/24 11:30 Foot,Right Gram Stain - Final Constitutional: Present no acute distress, obese, chronically ill appearing and cooperative Head: Present normocephalic Eye: Present as per HPI Neck: Present normal inspection and trachea midline Respiratory: Present normal respiratory effort and able to speak in complete sentences Cardiac: Present posterior tibial pulses present (weakly palpable ) and pedal pulses present (weakly palpable ) GI: Present soft Rectal (male): Present deferred (male): Present deferred Extremities: Present normal inspection, full ROM, tenderness (S/P Right foot TMA/lisfranc amp) and joint swelling (right foot); Absent normal capillary refill Skin: Present scars (left foot ) and wounds Comment:: Right foot has significant 2+ pitting edema. S/P Right foot I&D, Partial 1-2nd ray amputation, GAUDENCIO drain. Has some discoloration and bruising along the incision. No evidence of gangrene, necrosis or purulent drainage. GAUDENCIO drain intact with 10cc outpt. Neuro: Present Motor Function Intact, alert, awake and moves all extremities; Absent Sensory Function Intact Ankle: bilateral: swelling (pitting edema) Feet/Toes: left: amputation (L partial 1st ray, 2nd toe), right: erythema (distal medial foot), right: swelling (right foot), right: tenderness (hallux) and right: wound (S/P Right foot I&D, Partial 1-2nd ray amputation, GAUDENCIO drain) and bilateral: nail abnormalities and bilateral: onychomycosis Inspection: Present nail disorder, infection (S/P Right foot I&D, Partial 1-2nd ray amputation, GAUDENCIO drain, getting IV Vanc/ Zosyn antibiotics) and ulceration Pulses: L dorsalis pedis pulse: diminished (weakly palpable), R dorsalis pedis pulse: diminished (weakly palpable), L posterior tibial pulse: diminished (weakly palpable) and R posterior tibial pulse: diminished (weakly palpable) CFT: dim: CFT Results Labs 03/03/24 16:39 03/03/24 16:39 Labs: Abnormal lab results 03/03/24 Range/Units 16:39 RBC 2.29 L (4.60-6.20) M/mm3 Hgb 7.2 L (14.1-18.0) g/dL Hct 20.9 L* (42.0-52.0) % MCH 31.5 H (27.0-31.2) pg Plt Count 80 L (142-424) K/mm3 ESR 137 H (0-20) mm/hr Sodium 129 L (136-145) mmol/L Chloride 94 L (98-107) mmol/L Carbon Dioxide 21 L (22.0-30.0) mmol/L Anion Gap 18.2 H (5-15) mEq/L Glucose 113 H (74-100) mg/dl C-Reactive Protein 32.5 H (0-4) mg/L Total Protein 6.2 L (6.3-8.2) g/dl Albumin 3.0 L (3.5-5.0) g/dl Albumin/Globulin Ratio 0.9 L (1.1-1.8) Crossmatch (AHG) See Detail H & H 03/03/24 Range/Units 16:39 Hgb 7.2 L (14.1-18.0) g/dL Hct 20.9 L* (42.0-52.0) % All other labs normal. Diagnostic results Ankle/Foot x-ray: pending Assessment and Plan *Assessment and plan (1) Cellulitis of foot, right: Status: Acute Category: Medical Code(s): L03.115 - Cellulitis of right lower limb (2) Status post partial amputation of right foot: Status: Acute Category: Surgical Code(s): Z89.431 - Acquired absence of right foot (3) MRSA (methicillin resistant staph aureus) culture positive: Status: Acute Category: Medical Code(s): Z22.322 - Carrier or suspected carrier of Methicillin resistant Staphylococcus aureus (4) Obesity, Class II, BMI 35-39.9: Status: Acute Category: Medical Code(s): E66.9 - Obesity, unspecified (5) Type 2 diabetes mellitus with diabetic polyneuropathy, with long-term current use of insulin: Status: Chronic Category: Medical Code(s): E11.42 - Type 2 diabetes mellitus with diabetic polyneuropathy; Z79.4 - [facility] (current) use of insulin Plan Surgery, 02/04/24: s/p Right foot I&D, Partial 1-2nd ray amputation, GAUDENCIO drain Intraop Specimens: Right foot WCx: Staphylococcus aureus (MRSA), Strep agalactiae - (group b) Right foot tissue cx: Staphylococcus aureus (MRSA), Escherichia coli, Proteus mirabilis Right foot sesamoids bone cx: Staphylococcus aureus (MRSA) Right 1-2nd toe path: Toe with ulceration, cellulitis and gangrenous necrosis. No evidence of malignancy or osteomyelitis. Right 1-2nd met bone path: Fragments of bone with reactive changes. No evidence of malignancy or osteomyelitis. Right 1-2nd mets margin: Bone with hemorrhage and reactive changes. No evidence of malignancy or osteomyelitis. Surgery, 02/26/24: s/p Right transmetatarsal amputation (TMA)/Lisfranc disarticulation, Derotational skin flap/adjacent soft tissue rearrangement, Right foot ulcer excision, GAUDENCIO drain application Intraop Specimens: Right foot Tissue cx: GNR Right foot 1st met Bone Cx: GNR Path: Nontraumatic amputation right foot toes: Ulcerated and necrotic skin and subcutaneous tissue. Underlying bone with severe acute osteomyelitis. Negative for specific microorganisms. Negative for dysplasia or malignancy. Benign viable surgical resection margin. Nontraumatic amputation right meds 2?5: Benign fragments of bone with mild degenerative changes. No additional abnormalities identified. Labs: 02/04/24, wbc 17.6, esr 116, crp 305.9, glucose 169, albumin 3.5, Na 126 02/05/24, wbc 16.5, esr >140, crp 261.7, A1c 5.4%, glucose 211 02/06/24, wbc 12.1, esr >140, crp 221.8, cr 0.6, gfr 135, bun 8, K 3.1, glucose 120 02/08/24, wbc 7.6, cr 0.6, gfr 135, glucose 126, albumin 2.6 02/12/24, wbc 9.7 02/13/24, WCx right foot: Staphylococcus aureus#2 (MRSA), Staphylococcus aureus (MRSA-VRE) 03/03/24, labs: wbc 6.5, esr 137, crp 32.5, cr 1.0, gfr 75, glucose 113, albumin 3.0, H&H 7.2, 20.9, platelets 80 03/03/24, WCx right foot: pending 03/03/24: POV #1, POD #6 -ABIs reviewed, 02/05/24: Right MARITA 0.95 (PT 0.95, DP 0.95), TBI 0.69 and Left MARITA 1.18 (PT 0.92, DP 1.18), TBI 0.93, adequate flow to heal -Presents PWB in postop shoe, WC. Discussed compliance with NWB to avoid pressure/tension to wound site which could cause delay in healing. -Dressing removed-incision has discoloration/bruising at flap apex. Concerned with recurrent infection and possible flap necrosis. -Skin cleansed. GAUDENCIO drain was pulled out by pt, came to [facility] ER 03/01/24. -Blister noted to medial incision, 15' blade used to do I&D and new WCx taken. -Wound flushed, no purulence noted. -New dressing: betadine soaked gauze, gauze, kerlix, abd pad, Jose Luis applied. *Patient is getting admitted to [facility] Hospitalist team today for labs, blood transfusion. -Discussed with Dr Magaña and Dr Owen. -Plan for new right foot x-rays 3v, labs (cbc, cmp, esr, crp). *Recent antibiotics: for MRSA, MRSA-VRE, E.coli, Proteus, group B strep. -Start broad spectrum abx: Cefepime, Zosyn due to recent WCx and Bone Cx: GNR. Cultures may finalize wolf. -Podiatry will see patient in the am for dressing change. SNF ([place]) Orders: -Maintain dressing clean dry and intact to right foot, reinforce as necessary. -Plan for daily dressing changes per SNF nursing. -Right foot dressing: betadine soaked gauze to incision, dry gauze, lo/kerlix, abd pad, Jose Luis. -NWB RLE in postop shoe/short fracture boot, walker/wheelchair. *Recent antibiotics: for MRSA, MRSA-VRE, E.coli, Proteus, group B strep. -PICC, IV abx: Cefepime 1g q12h, IV Zyvox 600mg q12h (ok for oral Zyvox) q12h, oral Doxy 100mg po BID (02/09-03/02/24). -Plan for weekly labs: cbc, bmp, esr, crp. Fax to Dr Flower @[phone] -Follow up weekly with Podiatry.
[2024-03-03] MEDS: 0.9 % SODIUM CHLORIDE 250 ML 25 ML IV (17:58)
[2024-03-03] MEDS: VANCOMYCIN CONSULT REQUEST 1 EACH NOTAPPLIC (18:35)
[2024-03-03] MEDS: PIPERCILLIN/TAZO 3.375 GM in 0.9 % SODIUM CHLORIDE 50 ML IV (18:42)
--- NOTE | 2024-03-03 18:51 | PC.NURSE ---
pt arrived as direct admit around 1600. meds reconciled with list provided by margaux. labs drawn by EZIO via picc and sent to lab. 1u of blood currently transfusing with vss and no pt complaints. abx given per jul. vitals to be continually monitored into next shift. pt has not complained of pain this shift. call light within reach. bed alarm on for pt safety.
[2024-03-03] MEDS: VANCOMYCIN HCL 2,000 MG in 0.9 % SODIUM CHLORIDE 500 ML 166 MG IV (20:26)
[2024-03-03] MEDS: DIVALPROEX 250 MG 250 EACH PO (20:28)
[2024-03-03] MEDS: QUETIAPINE 50 MG 100 EACH PO (20:28)
[2024-03-03] MEDS: PANTOPRAZOLE 40MG TABLET 40 MG PO (20:28)
[2024-03-03] MEDS: TAMSULOSIN 0.4MG CAPSULE 0.4 MG PO (20:28)
[2024-03-03] MEDS: PATIENT'S OWN HOME MEDICATION (Metformin 1,000 mg tablet) 1000 EACH PO (20:29)
[2024-03-03 22:14] LABS: Hematocrit 24.8 % (42.0-52.0)
[2024-03-03 22:24] LABS: Hemoglobin 8.4 g/dL (14.1-18.0)
[2024-03-04] VITALS: BP 115/68; PULSE 83; RESP 18; TEMP 37; O2SAT 100
[2024-03-04] MEDS: PIPERCILLIN/TAZO 3.375 GM in 0.9 % SODIUM CHLORIDE 50 ML IV ×3 (00:04→11:25)
[2024-03-04 00:08] LABS: POC Glucose,Bedside 108 (70-110)
[2024-03-04 04:00] VITALS: BMI 33.1
--- NOTE | 2024-03-04 05:04 | PC.NURSE ---
Patient resting quietly in bed. Vital signs stable, afebrile. Lung sounds clear but decreased in bases. 100% 02 sat on room air. Received 1 unit PRBCs and tolerated well. Drsg/carlos wrap C/D/I to right foot. No complaints of pain/discomfort. FSBS this AM 110.
[2024-03-04 05:08] LABS: POC Glucose,Bedside 110 (70-110)
[2024-03-04 05:31] VITALS: BP 138/69; PULSE 81; RESP 16; TEMP 36.7; O2SAT 99
[2024-03-04 06:47] LABS: Chloride 95 mmol/L (98-107)
[2024-03-04 06:48] LABS: Albumin Level 2.5 g/dl (3.5-5.0); Potassium 3.7 mmoL/L (3.5-5.1); Sodium 129 mmol/L (136-145)
[2024-03-04 06:50] LABS: Blood Urea Nitrogen 8 mg/dl (9-20); Creatinine Clearance Estimated 96 mL/min (50-200); Estimated Glomerular Filt Rate 97 ml/min (>60); GFR (African American) 117 ML/MIN (>60)
[2024-03-04 06:51] LABS: Alanine Aminotransferase 37 U/L (12-78); Albumin/Globulin Ratio 0.9 (1.1-1.8); Alkaline Phosphatase 65 U/L (38-126); Anion Gap 14.7 mEq/L (5-15); Aspartate Amino Transferase 48 U/L (17-59); Basophils % 0.5 % (0.1-2.0); Bilirubin,Total 0.7 mg/dl (0.2-1.3); Calcium 7.8 mg/dl (8.4-10.2); Carbon Dioxide 23 mmol/L (22.0-30.0); Eosinophils # 0.2 K/mm3 (0.0-0.4); Globulin 2.8 g/dL (1.3-3.2); Glucose 90 mg/dl (74-100); Lymphocytes # 1.5 K/mm3 (0.7-4.5); Lymphocytes % 27.2 % (10-50); Mean Corpuscular HGB Conc 35.6 g/dL (31.8-35.4); Mean Corpuscular Hemoglobin 30.6 pg (27.0-31.2); Mean Platelet Volume 8.4 fl (7.4-10.4); Monocytes # 0.6 K/mm3 (0.1-1.0); Monocytes % 11.9 % (1.7-9.3); Neutrophils # 3.1 K/mm3 (1.8-7.8); Neutrophils % 57.4 % (37.0-80.0); Platelet Count 63 K/mm3 (142-424); Red Blood Count 2.36 M/mm3 (4.60-6.20); Total Protein,Serum 5.3 g/dl (6.3-8.2); White Blood Count 5.4 K/mm3 (4.8-10.8)
[2024-03-04 07:02] LABS: Magnesium 0.9 mg/dl (1.6-2.3)
--- NOTE | 2024-03-04 07:05 | EXP.ORTH.PN ---
Subjective *Date: 03/04/24 *Time: 08:21 Interval history: Patient was doing well eating breakfast upon entering the room. Patient states slept well and denies any acute pain with right TMA site. Ortho Exam (Inpt) Vital signs and Labs for Last 24 Hours: Temp Pulse Resp BP Pulse Ox O2 Del Method 98.0 F 81 16 138/69 99 Room Air 03/04/24 05:31 03/04/24 05:31 03/04/24 05:31 03/04/24 05:31 03/04/24 05:31 03/04/24 06:25 Laboratory Results - last 24 hr 03/03/24 16:39: WBC 6.5, RBC 2.29 L, Hgb 7.2 L, Hct 20.9 L*, MCV 91.2, MCH 31.5 H, MCHC 34.6, RDW 15.9, Plt Count 80 L, MPV 8.8, Neut % (Auto) 63.9, Lymph % (Auto) 25.7, Borden % (Auto) 7.9, Eos % (Auto) 2.3, Baso % (Auto) 0.3, Neut # (Auto) 4.1, Lymph # (Auto) 1.7, Borden # (Auto) 0.5, Eos # (Auto) 0.2, Baso # (Auto) 0.0, ESR 137 H, Sodium 129 L, Potassium 4.2, Chloride 94 L, Carbon Dioxide 21 L, Anion Gap 18.2 H, BUN 11, Creatinine 1.00, Estimated GFR 75, Est GFR ( Amer) 90, Glucose 113 H, Calcium 8.5, Total Bilirubin 0.6, AST 57, ALT 50, Alkaline Phosphatase 73, C-Reactive Protein 32.5 H, Total Protein 6.2 L, Albumin 3.0 L, Globulin 3.2, Albumin/Globulin Ratio 0.9 L, Blood Type O Positive, Antibody Screen Negative, Crossmatch (AHG) See Detail 03/03/24 20:20: POC Glucose 108 03/03/24 21:45: Hgb 8.4 L D, Hct 24.8 L 03/04/24 05:01: POC Glucose 110 03/04/24 05:45: Sodium 129 L, Potassium 3.7, Chloride 95 L, Carbon Dioxide 23, Anion Gap 14.7, BUN 8 L D, Creatinine 0.80, Estimated Creat Clear 96, Estimated GFR 97, Est GFR ( Amer) 117 D, Glucose 90 D, Calcium 7.8 L, Magnesium 0.9 L, Total Bilirubin 0.7, AST 48, ALT 37 D, Alkaline Phosphatase 65, Total Protein 5.3 L, Albumin 2.5 L D, Globulin 2.8, Albumin/Globulin Ratio 0.9 L I & O for Labs for Last 24 Hours: Intake & Output 03/01/24 03/02/24 03/03/24 03/04/24 23:59 23:59 23:59 23:59 Intake Total 1640 / 1640 440 / 440 Output Total 200 / 200 Balance 1440 / 1440 439 / 439 Weight 204 lb 4 oz 206 lb 6.4 oz Constitutional: Present no acute distress and obese Head: Present normocephalic Neck: Present normal inspection Respiratory: Present normal respiratory effort Cardiac: Present pedal pulses present Rectal (male): Present deferred (male): Present deferred Extremities: Present edema Skin: Present intact and wounds Comment:: Right foot S/p partial 1-2nd ray amputation with miah intact. Central area of the incision 1 cm wide left open to drain. On the medial aspect of the foot there is also a 1 cm opening that was left for drainage. Overall the skin is dry and there is a dark patch of skin on the Mills of the foot, miah intact. Less edema and erythema. Discoloration dusky bruising noted to Medial foot incisions. Neuro: Present Numbness, Motor Function Intact, alert and moves all extremities Ankle: right: swelling (1+ pitting edema) and bilateral: normal inspection Feet/Toes: right: erythema (improving, dark skin discoloration on the apex of TMA site), right: swelling (trace edema, bruising to distal medial foot), right: tenderness (no POP) and right: wound (02/26/24: s/p R TMA/Lisfranc disarticulation derotational skin flap, adjacent soft tissue rearrangement, right foot ulcer excision) and bilateral: amputation (L 1st partial ray, 2nd toe; R TMA/Lisfranc disarticulation derotational skin flap, adjacent soft tissue rearrangement, right foot ulcer excision) Assessment and Plan *Assessment and plan (1) Cellulitis of foot, right: Status: Acute Category: Medical Code(s): L03.115 - Cellulitis of right lower limb (2) Status post partial amputation of right foot: Status: Acute Category: Surgical Code(s): Z89.431 - Acquired absence of right foot (3) MRSA (methicillin resistant staph aureus) culture positive: Status: Acute Category: Medical Code(s): Z22.322 - Carrier or suspected carrier of Methicillin resistant Staphylococcus aureus (4) Obesity, Class II, BMI 35-39.9: Status: Acute Category: Medical Code(s): E66.9 - Obesity, unspecified (5) Type 2 diabetes mellitus with diabetic polyneuropathy, with long-term current use of insulin: Status: Chronic Category: Medical Code(s): E11.42 - Type 2 diabetes mellitus with diabetic polyneuropathy; Z79.4 - halfway (current) use of insulin Plan Surgery, 02/04/24: s/p Right foot I&D, Partial 1-2nd ray amputation, GAUDENCIO drain Intraop Specimens: Right foot WCx: Staphylococcus aureus (MRSA), Strep agalactiae - (group b) Right foot tissue cx: Staphylococcus aureus (MRSA), Escherichia coli, Proteus mirabilis Right foot sesamoids bone cx: Staphylococcus aureus (MRSA) Right 1-2nd toe path: Toe with ulceration, cellulitis and gangrenous necrosis. No evidence of malignancy or osteomyelitis. Right 1-2nd met bone path: Fragments of bone with reactive changes. No evidence of malignancy or osteomyelitis. Right 1-2nd mets margin: Bone with hemorrhage and reactive changes. No evidence of malignancy or osteomyelitis. Surgery, 02/26/24: s/p Right transmetatarsal amputation (TMA)/Lisfranc disarticulation, Derotational skin flap/adjacent soft tissue rearrangement, Right foot ulcer excision, GAUDENCIO drain application Intraop Specimens: Right foot Tissue cx: GNR Right foot 1st met Bone Cx: GNR Path: Nontraumatic amputation right foot toes: Ulcerated and necrotic skin and subcutaneous tissue. Underlying bone with severe acute osteomyelitis. Negative for specific microorganisms. Negative for dysplasia or malignancy. Benign viable surgical resection margin. Nontraumatic amputation right meds 2?5: Benign fragments of bone with mild degenerative changes. No additional abnormalities identified. Labs: 02/04/24, wbc 17.6, esr 116, crp 305.9, glucose 169, albumin 3.5, Na 126 02/05/24, wbc 16.5, esr >140, crp 261.7, A1c 5.4%, glucose 211 02/06/24, wbc 12.1, esr >140, crp 221.8, cr 0.6, gfr 135, bun 8, K 3.1, glucose 120 02/08/24, wbc 7.6, cr 0.6, gfr 135, glucose 126, albumin 2.6 02/12/24, wbc 9.7 02/13/24, WCx right foot: Staphylococcus aureus#2 (MRSA), Staphylococcus aureus (MRSA-VRE) 03/03/24, labs: wbc 6.5, esr 137, crp 32.5, cr 1.0, gfr 75, glucose 113, albumin 3.0, H&H 7.2, 20.9, platelets 80 03/03/24, WCx right foot: pending 03/04/24: POV #2, POD 7 -ABIs reviewed, 02/05/24: Right MARITA 0.95 (PT 0.95, DP 0.95), TBI 0.69 and Left MARITA 1.18 (PT 0.92, DP 1.18), TBI 0.93, adequate flow to heal 03/03/24-right foot 3 view x-ray reviewed:FINDINGS: Bones/joints: Status post forefoot amputation at the tarsometatarsal joint level. Mild osseous demineralization. No acute fracture or joint dislocation. No concerning bone lesions. Slight cortical irregularity articular margin of the medial cuneiform likely secondary to prior degenerative arthropathy at the tarsometatarsal joint. If concern for osteomyelitis, recommend follow-up MRI. Small calcaneal enthesophytes. Corticated ossicle at the medial malleolus. Soft tissues: Diffuse soft tissue swelling. Skin miah in place. Impression status post forefoot amputation, slight cortical irregularity articular margin at the medial cuneiform. This is likely a sequela of degenerative arthropathic. Concern for osteomyelitis recommend follow-up MRI. Diffuse soft tissue swelling. -Discussed compliance with NWB to avoid pressure/tension to wound site which could cause delay in healing. -Dressing removed-incision has discoloration/bruising at flap apex. Concerned with recurrent infection and possible flap necrosis. -Skin cleansed. GAUDENCIO drain was pulled out by pt, came to [facility] ER 03/01/24. -Blister noted to medial incision, 15' blade used to do I&D and new WCx taken 03/03/24 and now pending -Wound flushed, no purulence noted. -New dressing: betadine soaked gauze, gauze, kerlix,Jose Luis applied. *Patient was admitted to [facility] per Hospitalist team for labs, blood transfusion. -Patient received blood transfusion and improved his hemoglobin to 8.4L -Discussed with Dr Magaña and Dr Owen. -Plan for new right foot x-rays 3v, labs (cbc, cmp, esr, crp). *Recent antibiotics: for MRSA, MRSA-VRE, E.coli, Proteus, group B strep. -Start broad spectrum abx: Cefepime, Zosyn due to recent WCx and Bone Cx: GNR. Cultures may finalize wolf. -Podiatry saw patient and changed dressings this morning, patient doing well. -All orders per Dr. Flower [facility] ([place]) Orders: -Maintain dressing clean dry and intact to right foot, reinforce as necessary. -Plan for daily dressing changes per SNF nursing. -Right foot dressing: betadine soaked gauze to incision, dry gauze, lo/kerlix, abd pad, Jose Luis. -NWB RLE in postop shoe/short fracture boot, walker/wheelchair. *Recent antibiotics: for MRSA, MRSA-VRE, E.coli, Proteus, group B strep. -PICC, IV abx: Cefepime 1g q12h, IV Zyvox 600mg q12h (ok for oral Zyvox) q12h, oral Doxy 100mg po BID (02/09-03/02/24). -Plan for weekly labs: cbc, bmp, esr, crp. Fax to Dr Flower @[phone] -Follow up weekly with Podiatry.
[2024-03-04 07:11] LABS: Hematocrit 20.3 % (42.0-52.0)
[2024-03-04 07:12] LABS: Hemoglobin 7.2 g/dL (14.1-18.0)
--- NOTE | 2024-03-04 07:24 | PC.NURSE ---
Called Dr. Owen regarding critical lab values. hematocrit of 20.3 and mag of 0.9. no new orders.
[2024-03-04 07:44] VITALS: BP 125/71; PULSE 85; RESP 18; TEMP 37; O2SAT 100
--- NOTE | 2024-03-04 08:26 | SW/DCPLANNER ---
Addendum entered by Karen Butler 03/04/24 15:55: I have arranged [employer] for this . Addendum entered by Karen Butler 03/04/24 10:11: I have updated An w/ [facility] that patient may discharge pending afternoon labs. Original Note: Patient currently resides at [facility] level of care. I will continue to follow up w/ An at [facility]. Discharge date is unknown at this time.
--- NOTE | 2024-03-04 08:43 | EXP.PHA.CONS ---
Pharmacy Consult Date: 03/04/24 Time: 08:43 Referring provider: DR. FULTON Reason for Consult:: VANCOMYCIN DOSING Allergies Allergy/AdvReac Type Severity Reaction Status Date / Time morphine [MORPHINE] Allergy Severe I-ITCHING Verified 03/03/24 14:43 influenza virus vaccine qs Allergy Unknown Verified 03/03/24 14:43 2019- (6 mos and up) allergy [From Fluarix Quad reaction (PF)] Home Medications ?Medication ?Instructions ?Recorded ?Confirmed ?Type ranolazine 1,000 mg 1,000 mg PO BID 08/30/20 03/03/24 History tablet,extended release,12 hr albuterol sulfate 90 mcg/actuation 2 puff inhalation QID PRN 08/25/22 03/03/24 History aerosol inhaler SOA,wheeze tamsulosin 0.4 mg capsule 0.4 mg PO HS 01/10/23 03/03/24 History aspirin 81 mg chewable tablet 81 mg PO DAILY 01/24/23 03/03/24 History (Aspirin Childrens) citalopram 20 mg tablet 20 mg PO DAILY 01/24/23 03/03/24 History fluticasone propionate 50 1 spray intranasal BID 01/24/23 03/03/24 History mcg/actuation nasal spray,suspension acetaminophen 500 mg tablet 500 mg PO Q4H PRN Pain 05/07/23 03/03/24 History (Acetaminophen Extra Strength) bisacodyl 10 mg rectal suppository 10 mg IN DAILY PRN Constipation 05/07/23 03/03/24 History (Laxative (bisacodyl)) fluticasone furoate 100 1 inh inhalation DAILY 05/07/23 03/03/24 History mcg-vilanterol 25 mcg/dose inhalation powder (Breo Ellipta) ondansetron HCl 4 mg tablet 4 mg PO Q6H PRN nausea and vomiting 05/07/23 03/03/24 History pantoprazole 40 mg tablet,delayed 40 mg PO BID 05/07/23 03/03/24 History release quetiapine 50 mg tablet 50 mg PO DAILY 05/07/23 03/03/24 History quetiapine 50 mg tablet (Seroquel) 100 mg PO HS 05/07/23 03/03/24 History sennosides 8.6 mg-docusate sodium 2 tab-cap PO BID costipation 05/07/23 03/03/24 History 50 mg tablet (Senexon-S) metformin 1,000 mg tablet 1,000 mg PO BID #180 tabs 09/10/23 03/03/24 Rx amlodipine 5 mg tablet (Norvasc) 5 mg PO DAILY #90 tabs 01/07/24 03/03/24 Rx divalproex 250 mg tablet,delayed 250 mg PO BID 01/08/24 03/03/24 History release loperamide 2 mg capsule 2 mg PO Q4HP PRN Diarrhea 01/08/24 03/03/24 History atorvastatin 80 mg tablet 80 mg PO DAILY 02/05/24 03/03/24 History ferrous sulfate 324 mg (65 mg 324 mg PO BID 02/27/24 03/03/24 History iron) tablet,delayed release New Prescriptions to Start Prescriptions: Height: 1.68 m Weight: 93.621 kg Laboratory Results:: Laboratory Results - last 24 hr 03/03/24 16:39: WBC 6.5, RBC 2.29 L, Hgb 7.2 L, Hct 20.9 L*, MCV 91.2, MCH 31.5 H, MCHC 34.6, RDW 15.9, Plt Count 80 L, MPV 8.8, Neut % (Auto) 63.9, Lymph % (Auto) 25.7, Lawrence % (Auto) 7.9, Eos % (Auto) 2.3, Baso % (Auto) 0.3, Neut # (Auto) 4.1, Lymph # (Auto) 1.7, Lawrence # (Auto) 0.5, Eos # (Auto) 0.2, Baso # (Auto) 0.0, ESR 137 H, Sodium 129 L, Potassium 4.2, Chloride 94 L, Carbon Dioxide 21 L, Anion Gap 18.2 H, BUN 11, Creatinine 1.00, Estimated GFR 75, Est GFR ( Amer) 90, Glucose 113 H, Calcium 8.5, Total Bilirubin 0.6, AST 57, ALT 50, Alkaline Phosphatase 73, C-Reactive Protein 32.5 H, Total Protein 6.2 L, Albumin 3.0 L, Globulin 3.2, Albumin/Globulin Ratio 0.9 L, Blood Type O Positive, Antibody Screen Negative, Crossmatch (AHG) See Detail 03/03/24 20:20: POC Glucose 108 03/03/24 21:45: Hgb 8.4 L D, Hct 24.8 L 03/04/24 05:01: POC Glucose 110 03/04/24 05:45: WBC 5.4, RBC 2.36 L, Hgb 7.2 L D, Hct 20.3 L*, MCV 86.0, MCH 30.6, MCHC 35.6 H, RDW 17.0, Plt Count 63 L, MPV 8.4, Neut % (Auto) 57.4, Lymph % (Auto) 27.2, Lawrence % (Auto) 11.9 H, Eos % (Auto) 3.0, Baso % (Auto) 0.5, Neut # (Auto) 3.1, Lymph # (Auto) 1.5, Lawrence # (Auto) 0.6, Eos # (Auto) 0.2, Baso # (Auto) 0.0, Sodium 129 L, Potassium 3.7, Chloride 95 L, Carbon Dioxide 23, Anion Gap 14.7, BUN 8 L D, Creatinine 0.80, Estimated Creat Clear 96, Estimated GFR 97, Est GFR ( Amer) 117 D, Glucose 90 D, Calcium 7.8 L, Magnesium 0.9 L, Total Bilirubin 0.7, AST 48, ALT 37 D, Alkaline Phosphatase 65, Total Protein 5.3 L, Albumin 2.5 L D, Globulin 2.8, Albumin/Globulin Ratio 0.9 L Medical History: Medical History (Updated 03/03/24 @ 17:09 by Darleen Flower DPM) Anemia Diabetes mellitus (Unknown) Acute right otitis media Otitis externa of right ear Impacted cerumen of both ears Fatigue Dyspnea Abnormal electrocardiogram [ECG] [EKG] Hyponatremia Angina at rest Lower extremity edema Obesity, Class II, BMI 35-39.9, isolated (see actual BMI) Coronary artery disease Diabetic neuropathy Hypertensive heart disease without heart failure Coronary artery disease Diabetic neuropathy Diabetic ulcer of left foot Fungal ear infection Noncompliance Osteomyelitis of second toe of right foot Other hyperlipidemia Renal insufficiency Sepsis with acute respiratory failure Systemic inflammatory response syndrome (SIRS) Typical angina Impacted cerumen, bilateral Other asthma Right chronic otitis media Healed perforated eardrum Perforated tympanic membrane of both ears on examination Foreign body in right ear Impacted cerumen of left ear Tinnitus Hearing Loss Complicated urinary tract infection Acute urinary retention Elevated erythrocyte sedimentation rate Hemoptysis Acute subdural hematoma Epidural hematoma Finger infection Fall Diarrhea Suppurative tenosynovitis of flexor tendon Abscess of finger of left hand Concussion without loss of consciousness Weakness Shortness of breath Other acute osteomyelitis, left ankle and foot Postoperative wound dehiscence Cellulitis Left leg cellulitis Closed head injury Fall Unstable angina Abscess Laceration Atypical chest pain Onychodystrophy Postoperative edema Diabetic polyneuropathy associated with type 2 diabetes mellitus Abscess of left leg Cellulitis of left lower leg SIRS (systemic inflammatory response syndrome) Fever Sepsis Cellulitis Bacteremia Cellulitis of left foot Osteomyelitis of great toe of left foot Diabetic ulcer of left great toe IFEOMA (acute kidney injury) Renal insufficiency Elevated erythrocyte sedimentation rate Obesity (BMI 30-39.9) Hyponatremia Diabetic foot ulcer Diabetic foot infection Costal chondritis Fungal ear infection Sinusitis Bradycardia Dizziness Angina pectoris Typical angina Medication adverse effect Flank pain, acute Stable angina HHD (hypertensive heart disease) Diabetes CAD (coronary artery disease) Assessment and Plan Assessment and plan all Dx Assessment and Plan for all problems:: Pharmacokinetic dosing service Objective: Patient: Floor: Age: 64 yo Serum creatinine: 1 mg/dL Height: 66.1 Inches Weight (kg): 93.62 Assessment: IBW (kg): 64.03 Dosing wt(kg): 93.62 Estimated Creatinine clearance (ml/min): 65.8 CRCL method: Cockcroft and Gault using ibw(default). Drug selected: Vancomycin Loading dose (mg): 0 Vd (liters): 79.6 (factor used: 0.85 L/kg) Dio (hr-1): 0.059 Half life (hrs): 11.75 Recommended dose: 2000 mg Interval: 18 hrs Infusion time (hrs): 2.0 Predicted peak (mcg/mL): 36.2 Predicted trough (mcg/mL): 14.08 Total body weight is being used for vancomycin dosing. Recommendations: Give Vancomycin 2000 mg q 18 hrs with an expected Cpeak of 36.2 mcg/ml and an expected Ctrough of 14.08 mcg/ml ----Vanco only - ignore for aminoglycosides----- CLvanco= 4.70 L/hr AUC 0-24 /TRAV Data: TRAV 0.5 mcg/mL: AUC/TRAV: 1134.8 TRAV 1.0 mcg/mL: AUC/TRAV: 567.4 --------- TRAV 1.5 mcg/mL: AUC/TRAV: 378.3 TRAV 2.0 mcg/mL: AUC/TRAV: 283.7
[2024-03-04] MEDS: MAGNESIUM SULFATE IN WATER 2 GM/50 ML PIGGYBACK IV ×3 (09:24→11:25)
[2024-03-04] MEDS: AMLODIPINE 5MG TABLET 5 MG PO (09:25)
[2024-03-04] MEDS: RANOLAZINE 500MG ER TABLET 1000 MG PO (09:25)
[2024-03-04] MEDS: DIVALPROEX 250MG (Delayed-Release) TABLET 250 MG PO (09:25)
[2024-03-04] MEDS: CITALOPRAM 20MG TABLET 20 MG PO (09:25)
[2024-03-04] MEDS: PANTOPRAZOLE 40MG TABLET 40 MG PO (09:25)
[2024-03-04] MEDS: METFORMIN 500MG TABLET 1000 MG PO (09:25)
[2024-03-04] MEDS: QUETIAPINE 25MG TABLET 50 MG PO (09:25)
[2024-03-04 11:09] LABS: POC Glucose,Bedside 137 (70-110)
[2024-03-04 11:52] VITALS: BMI 33.1
[2024-03-04 14:30] LABS: Hemoglobin 7.2 g/dL (14.1-18.0)
[2024-03-04 14:37] LABS: Anion Gap 8.8 mEq/L (5-15); Blood Urea Nitrogen 6 mg/dl (9-20); Calcium 7.8 mg/dl (8.4-10.2); Carbon Dioxide 24 mmol/L (22.0-30.0); Chloride 99 mmol/L (98-107); Creatinine Clearance Estimated 96 mL/min (50-200); Estimated Glomerular Filt Rate 97 ml/min (>60); GFR (African American) 117 ML/MIN (>60); Glucose 104 mg/dl (74-100); Magnesium 2.1 mg/dl (1.6-2.3); Potassium 3.8 mmoL/L (3.5-5.1); Sodium 128 mmol/L (136-145)
[2024-03-04] MEDS: VANCOMYCIN HCL 2,000 MG in 0.9 % SODIUM CHLORIDE 250 ML 125 MG IV (14:39)
[2024-03-04 14:47] LABS: Hematocrit 20.7 % (42.0-52.0)
--- NOTE | 2024-03-04 14:51 | EXP.DC.SUM ---
General Admission date:: 03/03/24 Discharge date: 03/04/24 HPI HPI HPI: 64-year-old male with recent transmetatarsal amputation. Saw podiatry today for follow-up. Concern for worsening anemia at his [place] [facility]. Discussed case with both podiatry and patient's provider at his [place] [facility], will admit for transfusion. Patient feeling okay today. Denies significant bleeding from foot. No fever or chills. Stable on room air. Hospital Course Hospital Course Hospital Course: This is a 64-year-old male who presented from his [place] [facility] for evaluation by podiatry. Concern for worsening anemia. Admitted for transfusion. Discussed case with podiatry and patient's physician at nursing facility, repeat labs as an outpatient have showed hemoglobin in the 6 range. I agreed to admit for transfusion and close monitoring of foot overnight. Podiatry to do dressing changes in the morning. Anticipate discharge back to nursing facility tomorrow. Magnesium was low at 0.9, hemoglobin dropped to 7.2. Repeat labs obtained early in the afternoon showing improvement in magnesium to 2.1 and stable hemoglobin 7.2. Recommend repeat labs in 1 week to monitor kidney function, electrolytes, hemoglobin. Problems addressed as follows: Anemia -Secondary to chronic disease and blood loss. Hemoglobin 7.2, critical hematocrit of 20. Transfused 1 unit packed red blood cells. 2-hour post H&H showed improvement 8.2. No active signs of bleeding. Dropped back to 7.2 by morning however. No signs of active bleeding so repeat lab was obtained showing stability of 7 point 2 in the afternoon. In light of condition, will discharge back to [place] [facility]. May need further transfusions in the coming weeks but no indication at this time. Repeat labs in 1 week. Given previous workup with low iron saturation on iron studies last admission, may benefit from IV iron (Venofer) over the coming weeks. Right foot cellulitis Chronic right foot diabetic ulcer Diabetes with peripheral neuropathy - Podiatry consulted. Will evaluate patient in the morning. Saw him in clinic today. Wound looks healthy. - Status post partial amputation of right foot, inflammatory markers still elevated with ESR 137, greater than 140 a month ago; CRP improved to 32, down from 221 on 02/05 -Was treated with empiric antibiotics including vancomycin and Zosyn during admission. At podiatry's request, will continue Bactrim double strength twice daily to complete 10 additional days of antibiotics due to appearance of foot and decrease risk for further infection. Complete antibiotics as ordered. Follow-up with podiatry as outpatient. White count normal at 5.4 on day of discharge. Hyponatremia: Sodium 129. Chronic in nature. Kidney function normal with BUN 8, creatinine 0.8 Coronary artery disease - S/P [facility] 2019 with no intervention. Previous cardiac catheterization with stent deployment as noted. Patient was evaluated by cardiology preoperatively. Holding antiplatelet therapy and aspirin due to bleeding/anemia/thrombocytopenia. Platelets stable at 63. Continue statin Hypertension: Routine blood pressure monitoring. continue home therapy with amlodipine 5mg daily Diabetes: Fingersticks ACHS, Hemoglobin A1c 5.4% last visit a month ago. Sliding scale insulin during admission. Diabetic diet. Glucose 113 on presentation labs. No meds at discharge Total time spent on discharge 32 minutes in counseling, documentation, chart review, and direct care with patient. Exam Data for Last 24 hours Vital signs and Labs for Last 24 Hours: Temp Pulse Resp BP Pulse Ox O2 Del Method 98.6 F 85 18 125/71 100 Room Air 03/04/24 07:44 03/04/24 07:44 03/04/24 07:44 03/04/24 07:44 03/04/24 07:44 03/04/24 13:00 Laboratory Results - last 24 hr 03/03/24 16:39: WBC 6.5, RBC 2.29 L, Hgb 7.2 L, Hct 20.9 L*, MCV 91.2, MCH 31.5 H, MCHC 34.6, RDW 15.9, Plt Count 80 L, MPV 8.8, Neut % (Auto) 63.9, Lymph % (Auto) 25.7, [place] % (Auto) 7.9, Eos % (Auto) 2.3, Baso % (Auto) 0.3, Neut # (Auto) 4.1, Lymph # (Auto) 1.7, [place] # (Auto) 0.5, Eos # (Auto) 0.2, Baso # (Auto) 0.0, ESR 137 H, Sodium 129 L, Potassium 4.2, Chloride 94 L, Carbon Dioxide 21 L, Anion Gap 18.2 H, BUN 11, Creatinine 1.00, Estimated GFR 75, Est GFR ( Amer) 90, Glucose 113 H, Calcium 8.5, Total Bilirubin 0.6, AST 57, ALT 50, Alkaline Phosphatase 73, C-Reactive Protein 32.5 H, Total Protein 6.2 L, Albumin 3.0 L, Globulin 3.2, Albumin/Globulin Ratio 0.9 L, Blood Type O Positive, Antibody Screen Negative, Crossmatch (AHG) See Detail 03/03/24 20:20: POC Glucose 108 03/03/24 21:45: Hgb 8.4 L D, Hct 24.8 L 03/04/24 05:01: POC Glucose 110 03/04/24 05:45: WBC 5.4, RBC 2.36 L, Hgb 7.2 L D, Hct 20.3 L*, MCV 86.0, MCH 30.6, MCHC 35.6 H, RDW 17.0, Plt Count 63 L, MPV 8.4, Neut % (Auto) 57.4, Lymph % (Auto) 27.2, [place] % (Auto) 11.9 H, Eos % (Auto) 3.0, Baso % (Auto) 0.5, Neut # (Auto) 3.1, Lymph # (Auto) 1.5, [place] # (Auto) 0.6, Eos # (Auto) 0.2, Baso # (Auto) 0.0, Sodium 129 L, Potassium 3.7, Chloride 95 L, Carbon Dioxide 23, Anion Gap 14.7, BUN 8 L D, Creatinine 0.80, Estimated Creat Clear 96, Estimated GFR 97, Est GFR ( Amer) 117 D, Glucose 90 D, Calcium 7.8 L, Magnesium 0.9 L, Total Bilirubin 0.7, AST 48, ALT 37 D, Alkaline Phosphatase 65, Total Protein 5.3 L, Albumin 2.5 L D, Globulin 2.8, Albumin/Globulin Ratio 0.9 L 03/04/24 10:59: POC Glucose 137 H 03/04/24 14:15: Hgb 7.2 L, Hct 20.7 L*, Sodium 128 L, Potassium 3.8, Chloride 99, Carbon Dioxide 24, Anion Gap 8.8, BUN 6 L, Creatinine 0.80, Estimated Creat Clear 96, Estimated GFR 97, Est GFR ( Amer) 117, Glucose 104 H, Calcium 7.8 L, Magnesium 2.1 D I & O for Last 24 hours: Intake & Output 03/01/24 03/02/24 03/03/24 03/04/24 23:59 23:59 23:59 23:59 Intake Total 1640 / 2080 1420 / 1420 Output Total 200 / 200 1001 / 1001 Balance 1440 / 1880 419 / 419 Weight 92.646 kg 93.6 kg Constitutional Constitutional: no acute distress, morbidly obese, chronically ill appearing and cooperative *Routine HEENT Exam Head: Present normocephalic Eye: Present EOMI and PERRL ENT: Present mucous membranes moist Comments: speaks in clear sentences after *Routine Neck Exam Neck: Absent JVD or lymphadenopathy *Routine Respiratory Exam Respiratory: Present rhonchi, normal respiratory effort and symmetric chest movement *Routine Cardiovascular Exam Cardiovascular: Present RRR *Routine Abdominal Exam Abdominal: Present soft, normoactive bowel sounds and distended; Absent tenderness, rebound or guarding *Routine Rectal Exam Patient deferred: visual exam *Routine Exam Patient deferred: penile exam *Routine Extremities Exam Extremities: Absent cyanosis Comments: Right foot surgical dressing with Jose Luis wrap *Routine Skin Exam Skin: Present dry; Absent rash *Routine Neurological Exam Neurological: Present alert, moving all extremities, vision grossly intact, hearing grossly intact and normal speech; Absent sensory deficit or motor deficit Routine Psychiatric Exam Psychiatric: Present normal affect, cooperative and good insight Results Data Completed and Pending Labs on day of discharge: Labs from last 24 hours 03/04/24 03/04/24 03/04/24 14:15 10:59 05:45 WBC 5.4 RBC 2.36 L Hgb 7.2 L 7.2 L D Hct 20.7 L* 20.3 L* MCV 86.0 MCH 30.6 MCHC 35.6 H RDW 17.0 Plt Count 63 L MPV 8.4 Neut % (Auto) 57.4 Lymph % (Auto) 27.2 [place] % (Auto) 11.9 H Eos % (Auto) 3.0 Baso % (Auto) 0.5 Neut # (Auto) 3.1 Lymph # (Auto) 1.5 [place] # (Auto) 0.6 Eos # (Auto) 0.2 Baso # (Auto) 0.0 ESR Sodium 128 L 129 L Potassium 3.8 3.7 Chloride 99 95 L Carbon Dioxide 24 23 Anion Gap 8.8 14.7 BUN 6 L 8 L D Creatinine 0.80 0.80 Estimated Creat Clear 96 96 Estimated GFR 97 97 Est GFR ( Amer) 117 117 D Glucose 104 H 90 D POC Glucose 137 H Calcium 7.8 L 7.8 L Magnesium 2.1 D 0.9 L Total Bilirubin 0.7 AST 48 ALT 37 D Alkaline Phosphatase 65 C-Reactive Protein Total Protein 5.3 L Albumin 2.5 L D Globulin 2.8 Albumin/Globulin Ratio 0.9 L Blood Type Antibody Screen Crossmatch ([facility]) 03/04/24 03/03/24 03/03/24 05:01 21:45 20:20 WBC RBC Hgb 8.4 L D Hct 24.8 L MCV MCH MCHC RDW Plt Count MPV Neut % (Auto) Lymph % (Auto) [place] % (Auto) Eos % (Auto) Baso % (Auto) Neut # (Auto) Lymph # (Auto) [place] # (Auto) Eos # (Auto) Baso # (Auto) ESR Sodium Potassium Chloride Carbon Dioxide Anion Gap BUN Creatinine Estimated Creat Clear Estimated GFR Est [place] Glucose POC Glucose 110 108 Calcium Magnesium Total Bilirubin AST ALT Alkaline Phosphatase C-Reactive Protein Total Protein Albumin Globulin Albumin/Globulin Ratio Blood Type Antibody Screen Crossmatch ([facility]) 03/03/24 16:39 WBC 6.5 RBC 2.29 L Hgb 7.2 L Hct 20.9 L* MCV 91.2 MCH 31.5 H MCHC 34.6 RDW 15.9 Plt Count 80 L MPV 8.8 Neut % (Auto) 63.9 Lymph % (Auto) 25.7 [place] % (Auto) 7.9 Eos % (Auto) 2.3 Baso % (Auto) 0.3 Neut # (Auto) 4.1 Lymph # (Auto) 1.7 [place] # (Auto) 0.5 Eos # (Auto) 0.2 Baso # (Auto) 0.0 ESR 137 H Sodium 129 L Potassium 4.2 Chloride 94 L Carbon Dioxide 21 L Anion Gap 18.2 H BUN 11 Creatinine 1.00 Estimated Creat Clear Estimated GFR 75 Est GFR ([facility] Amer) 90 Glucose 113 H POC Glucose Calcium 8.5 Magnesium Total Bilirubin 0.6 AST 57 ALT 50 Alkaline Phosphatase 73 C-Reactive Protein 32.5 H Total Protein 6.2 L Albumin 3.0 L Globulin 3.2 Albumin/Globulin Ratio 0.9 L Blood Type O Positive Antibody Screen Negative Crossmatch (AHG) See Detail DS: Diagnosis Discharge Diagnosis (1) Anemia: Status: Acute Code(s): D64.9 - Anemia, unspecified (2) Cellulitis of foot, right: Status: Acute Code(s): L03.115 - Cellulitis of right lower limb (3) Status post partial amputation of right foot: Status: Acute Code(s): Z89.431 - Acquired absence of right foot (4) MRSA (methicillin resistant staph aureus) culture positive: Status: Acute Code(s): Z22.322 - Carrier or suspected carrier of Methicillin resistant Staphylococcus aureus (5) Obesity, Class II, BMI 35-39.9: Status: Acute Code(s): E66.9 - Obesity, unspecified (6) Type 2 diabetes mellitus with diabetic polyneuropathy, with long-term current use of insulin: Status: Chronic Code(s): E11.42 - Type 2 diabetes mellitus with diabetic polyneuropathy; Z79.4 - half-way (current) use of insulin (7) Macrocytic anemia: Status: Acute Code(s): D53.9 - Nutritional anemia, unspecified Meds Home Medications and Allergies Home Medications ?Medication ?Instructions ?Recorded ?Confirmed ?Type ranolazine 1,000 mg 1,000 mg PO BID 08/30/20 03/03/24 History tablet,extended release,12 hr albuterol sulfate 90 mcg/actuation 2 puff inhalation QID PRN 08/25/22 03/03/24 History aerosol inhaler SOA,wheeze tamsulosin 0.4 mg capsule 0.4 mg PO HS 01/10/23 03/03/24 History aspirin 81 mg chewable tablet 81 mg PO DAILY 01/24/23 03/03/24 History (Aspirin Childrens) citalopram 20 mg tablet 20 mg PO DAILY 01/24/23 03/03/24 History fluticasone propionate 50 1 spray intranasal BID 01/24/23 03/03/24 History mcg/actuation nasal spray,suspension acetaminophen 500 mg tablet 500 mg PO Q4H PRN Pain 05/07/23 03/03/24 History (Acetaminophen Extra Strength) bisacodyl 10 mg rectal suppository 10 mg ME DAILY PRN Constipation 05/07/23 03/03/24 History (Laxative (bisacodyl)) fluticasone furoate 100 1 inh inhalation DAILY 05/07/23 03/03/24 History mcg-vilanterol 25 mcg/dose inhalation powder (Breo Ellipta) ondansetron HCl 4 mg tablet 4 mg PO Q6H PRN nausea and vomiting 05/07/23 03/03/24 History pantoprazole 40 mg tablet,delayed 40 mg PO BID 05/07/23 03/03/24 History release quetiapine 50 mg tablet 50 mg PO DAILY 05/07/23 03/03/24 History quetiapine 50 mg tablet (Seroquel) 100 mg PO HS 05/07/23 03/03/24 History sennosides 8.6 mg-docusate sodium 2 tab-cap PO BID costipation 05/07/23 03/03/24 History 50 mg tablet (Senexon-S) metformin 1,000 mg tablet 1,000 mg PO BID #180 tabs 09/10/23 03/03/24 Rx amlodipine 5 mg tablet (Norvasc) 5 mg PO DAILY #90 tabs 01/07/24 03/03/24 Rx divalproex 250 mg tablet,delayed 250 mg PO BID 01/08/24 03/03/24 History release loperamide 2 mg capsule 2 mg PO Q4HP PRN Diarrhea 01/08/24 03/03/24 History atorvastatin 80 mg tablet 80 mg PO DAILY 02/05/24 03/03/24 History ferrous sulfate 324 mg (65 mg 324 mg PO BID 02/27/24 03/03/24 History iron) tablet,delayed release magnesium 200 mg tablet 200 mg PO DAILY #30 tabs 03/04/24 Rx sulfamethoxazole 800 1 tab PO BID #20 tabs 03/04/24 Rx mg-trimethoprim 160 mg tablet (Bactrim DS) New Prescriptions to Start Prescriptions: Fabián Vazquez sulfamethoxazole-trimethoprim [Bactrim DS] Fabián Owen Allergies Allergy/AdvReac Type Severity Reaction Status Date / Time morphine [MORPHINE] Allergy Severe I-ITCHING Verified 03/03/24 14:43 influenza virus vaccine qs Allergy Unknown Verified 03/03/24 14:43 2019- (6 mos and up) allergy [From Fluarix Quad reaction (PF)] Discharge Plan Disposition Patient Disposition: Xfer Intermediate Care Fac Condition: Fair Discharge Order Discharge Orders: Discharge Order (Routine); Ordered 03/04/24 Ordered By: Fabián Owen Follow up Plan Follow up with: Darleen Flower DPM [Staff Physician] - 03/10/24 1:30 pm (weekly follow ups ) Prescriptions/Medication Reconciliation: New sulfamethoxazole-trimethoprim [Bactrim DS] 800-160 mg tablet 1 tab PO BID Qty: 20 0RF magnesium 200 mg tablet 200 mg PO DAILY Qty: 30 0RF Continued aspirin [Aspirin Childrens] 81 mg tablet,chewable 81 mg PO DAILY fluticasone propionate 50 mcg/actuation spray,suspension 1 spray intranasal BID Rx Instructions: administer into each nostril citalopram 20 mg tablet 20 mg PO DAILY tamsulosin 0.4 mg capsule 0.4 mg PO HS divalproex 250 mg tablet,delayed release (DR/EC) 250 mg PO BID loperamide 2 mg capsule 2 mg PO Q4HP PRN (Reason: Diarrhea) acetaminophen [Acetaminophen Extra Strength] 500 mg tablet 500 mg PO Q4H PRN (Reason: Pain) bisacodyl [Laxative (bisacodyl)] 10 mg suppository 10 mg ME DAILY PRN (Reason: Constipation) ondansetron HCl 4 mg tablet 4 mg PO Q6H PRN (Reason: nausea and vomiting) fluticasone furoate-vilanterol [Breo Ellipta] 100-25 mcg/dose blister with device 1 inh inhalation DAILY pantoprazole 40 mg tablet,delayed release (DR/EC) 40 mg PO BID quetiapine 50 mg tablet 50 mg PO DAILY quetiapine [Seroquel] 50 mg tablet 100 mg PO HS sennosides-docusate sodium [Senexon-S] 8.6-50 mg tablet 2 tab-cap PO BID metformin 1,000 mg tablet 1,000 mg PO BID Qty: 180 3RF amlodipine [Norvasc] 5 mg tablet 5 mg PO DAILY Qty: 90 3RF ferrous sulfate 324 mg (65 mg iron) tablet,delayed release (DR/EC) 324 mg PO BID ranolazine 1,000 MG tablet extended release 12 hr 1,000 mg PO BID atorvastatin 80 mg tablet 80 mg PO DAILY albuterol sulfate 90 mcg/actuation Hfa Aerosol Inhaler 2 puff INHALATION QID PRN (Reason: SOA,wheeze) Problem Reconciliation Problems Reviewed?: Yes Patient Discharge Instructions ACTIVITY: Continue current activity DIET: continue same diet Print Language: French Providers Primary Care Provider: Yonis Magaña Admit Provider: Fabián Owen Attending Provider: Fabián Owen
== END 2024-03-04 17:02 ==
PROVIDERS: Admitting Provider Internal Medicine Adolescent Medicine; PCP Family Medicine; Visit Provider Internal Medicine Adolescent Medicine
DX: L03.115 Cellulitis of right lower limb (principal); Z89.431 Acquired absence of right foot; Z22.322 Carrier or suspected carrier of Methicillin resistant Staphylococcus aureus; E66.01 Morbid (severe) obesity due to excess calories; E11.42 Type 2 diabetes mellitus with diabetic polyneuropathy; Z79.4 Long term (current) use of insulin; E11.40 Type 2 diabetes mellitus with diabetic neuropathy, unspecified; I25.10 Atherosclerotic heart disease of native coronary artery without angina pectoris; I11.9 Hypertensive heart disease without heart failure; D53.9 Nutritional anemia, unspecified; Z79.899 Other long term (current) drug therapy; Z79.84 Long term (current) use of oral hypoglycemic drugs; Z68.33 Body mass index [BMI] 33.0-33.9, adult; E11.621 Type 2 diabetes mellitus with foot ulcer
CPT/HCPCS: G0379; 36415; 36430; 73630; 80048; 80053; 82962; 83735; 85014; 85018; 85025; 85651; 86140; 86850; G0378; J2543; J3370; J3475; P9016

== ENCOUNTER 2024-03-03 16:51 | Outpatient (CLI) | payer MEDICARE, MEDICAID, SELFPAY | END 2024-03-03 23:59 | disposition home or self-care (01) | LOC: LAB.DROPOF 16:52 | PROVIDERS: PCP Podiatrist; Visit Provider Podiatrist | DX: Z98.890 Other specified postprocedural states (principal); E11.621 Type 2 diabetes mellitus with foot ulcer; L97.513 Non-pressure chronic ulcer of other part of right foot with necrosis of muscle; Z22.322 Carrier or suspected carrier of Methicillin resistant Staphylococcus aureus; I73.9 Peripheral vascular disease, unspecified | CPT/HCPCS: 87070; 87205 ==

== ENCOUNTER 2024-03-17 11:01 | Outpatient (CLI) | payer MEDICARE, MEDICAID, SELFPAY | END 2024-03-17 23:59 | disposition home or self-care (01) | LOC: RT 11:01 | PROVIDERS: PCP Family Medicine; Visit Provider Podiatrist | DX: I73.9 Peripheral vascular disease, unspecified (principal) | CPT/HCPCS: 93923 ==

== ENCOUNTER 2024-03-17 16:27 | Outpatient (CLI) | payer MEDICARE, MEDICAID, SELFPAY ==
[2024-03-17 16:40] LABS: Basophils # 0.1 K/mm3 (0-0.2); Basophils % 0.8 % (0.1-2.0); Eosinophils # 0.3 K/mm3 (0.0-0.4); Eosinophils % 3.8 % (0.1-12.0); Hemoglobin 9.8 g/dL (14.1-18.0); Lymphocytes # 2.7 K/mm3 (0.7-4.5); Lymphocytes % 32.9 % (10-50); Mean Corpuscular HGB Conc 32.7 g/dL (31.8-35.4); Mean Corpuscular Hemoglobin 31.6 pg (27.0-31.2); Mean Corpuscular Volume 96.6 fl (80-94); Mean Platelet Volume 7.9 fl (7.4-10.4); Monocytes # 0.7 K/mm3 (0.1-1.0); Monocytes % 8.3 % (1.7-9.3); Neutrophils # 4.4 K/mm3 (1.8-7.8); Neutrophils % 54.1 % (37.0-80.0); Platelet Count 470 K/mm3 (142-424); Red Blood Count 3.11 M/mm3 (4.60-6.20); Red Cell Distribution Width 19.8 % (11.5-17.5); White Blood Count 8.1 K/mm3 (4.8-10.8)
== END 2024-03-17 23:59 | disposition home or self-care (01) ==
LOC: LAB.DROPOF 16:28
PROVIDERS: PCP Family Medicine; Visit Provider Family Medicine
DX: E11.42 Type 2 diabetes mellitus with diabetic polyneuropathy (principal); Z89.431 Acquired absence of right foot; I73.9 Peripheral vascular disease, unspecified
CPT/HCPCS: 85025; 87070; 87205; 93923

== ENCOUNTER 2024-03-23 06:50 | Day surgery (SDC) | payer MEDICARE, MEDICAID, SELFPAY ==
[2024-03-17 16:50] VITALS: BMI 31.3
--- NOTE | 2024-03-17 16:52 | SUR.PREOP ---
SPOKE W/ LONGTERM STAFF ABOUT [facility] INSTRUCTIONS FOR PROCEDURE ON 03/23/24, ALONG W/ ARRIVAL TIME GIVEN. STAFF VERBALIZED UNDERSTANDING. MAR REQUESTED TO BE FAXED TO [facility].
[2024-03-23 07:25] VITALS: BP 144/80; PULSE 89; RESP 18; TEMP 36.5; O2SAT 98; BMI 31.3
[2024-03-23] MEDS: LACTATED RINGERS 1000ML 1,000 ML 25 ML IV (07:33)
--- NOTE | 2024-03-23 07:56 | EXP.ANES.CKL ---
[facility] Disclaimer: The information contained in this section may have been updated after the patient was seen, as this information can be updated by other users. Medical History Anemia Diabetes mellitus (Unknown) Acute right otitis media Otitis externa of right ear Impacted cerumen of both ears Fatigue Dyspnea Abnormal electrocardiogram [ECG] [EKG] Hyponatremia Angina at rest Lower extremity edema Obesity, Class II, BMI 35-39.9, isolated (see actual BMI) Coronary artery disease Diabetic neuropathy Hypertensive heart disease without heart failure Coronary artery disease Diabetic neuropathy Diabetic ulcer of left foot Fungal ear infection Noncompliance Osteomyelitis of second toe of right foot Other hyperlipidemia Renal insufficiency Sepsis with acute respiratory failure Systemic inflammatory response syndrome (SIRS) Typical angina Impacted cerumen, bilateral Other asthma Right chronic otitis media Healed perforated eardrum Perforated tympanic membrane of both ears on examination Foreign body in right ear Impacted cerumen of left ear Tinnitus Hearing Loss Complicated urinary tract infection Acute urinary retention Elevated erythrocyte sedimentation rate Hemoptysis Acute subdural hematoma Epidural hematoma Finger infection Fall Diarrhea Suppurative tenosynovitis of flexor tendon Abscess of finger of left hand Concussion without loss of consciousness Weakness Shortness of breath Other acute osteomyelitis, left ankle and foot Postoperative wound dehiscence Cellulitis Left leg cellulitis Closed head injury Fall Unstable angina Abscess Laceration Atypical chest pain Onychodystrophy Postoperative edema Diabetic polyneuropathy associated with type 2 diabetes mellitus Abscess of left leg Cellulitis of left lower leg SIRS (systemic inflammatory response syndrome) Fever Sepsis Cellulitis Bacteremia Cellulitis of left foot Osteomyelitis of great toe of left foot Diabetic ulcer of left great toe IFEOMA (acute kidney injury) Renal insufficiency Elevated erythrocyte sedimentation rate Obesity (BMI 30-39.9) Hyponatremia Diabetic foot ulcer Diabetic foot infection Costal chondritis Fungal ear infection Sinusitis Bradycardia Dizziness Angina pectoris Typical angina Medication adverse effect Flank pain, acute Stable angina HHD (hypertensive heart disease) Diabetes CAD (coronary artery disease) Surgical History History of transmetatarsal amputation of right foot History of transmetatarsal amputation of right foot Presence of stent in coronary artery History of partial ray amputation of second toe of left foot Status post foot surgery History of partial amputation of toe Stented coronary artery Family History Other No significant family history Social History Smoking Status: Never smoker second hand exposure: No alcohol intake: never substance use type: denies use current occupational status: disabled Travel in the last 8 weeks: None household members: other housing: [facility] marital status: current occupational exposures/hazards: No caffeine: Yes [facility] Anesthesia Checklist Patient Identification Patient Identification: Arm Band Structural Data Admitted From: [facility] Planned Operative Procedure/s: Colonoscopy Consent for Planned Operative Procedure(s) Verified: Yes Verified Documents: Surgical Consent and History and Physical NPO Status Verified Time NPO: 00:00 Additional verifications Anesthesia Reactions: No Hx Blood Transfusions: No Blood Transfusion Reaction: No Airway Assessment Mallampati Score:: Class II C-Spine Mobility Assessed: Yes TMJ Mobility Assessed: Yes Dentition: Poor Dentition Neurological Assessment Level of Consciousness: Awake, Alert and Appropriate Anesthesia Plan Anesthesia Risk discussed: Yes Anesthesia Plan: Verified ASA Class: III Anesthesia Type: MAC
[2024-03-23 08:55] VITALS: O2SAT 98
--- NOTE | 2024-03-23 08:59 | EXP.HP ---
History of Present Illness *Admission Date: 03/23/24 *Reason for visit:: Anemia-diagnostic colonoscopy *History of present illness: Mr. Jain is a 64-year-old gentleman who is here for anemia with suspected GI blood loss. The examination is deemed medically necessary for colonoscopy. The patient has been seen, interviewed and examined prior to the procedure by both myself and the anesthesia provider. [facility] Disclaimer: The information contained in this section may have been updated after the patient was seen, as this information can be updated by other users. Medical History Anemia Diabetes mellitus (Unknown) Acute right otitis media Otitis externa of right ear Impacted cerumen of both ears Fatigue Dyspnea Abnormal electrocardiogram [ECG] [EKG] Hyponatremia Angina at rest Lower extremity edema Obesity, Class II, BMI 35-39.9, isolated (see actual BMI) Coronary artery disease Diabetic neuropathy Hypertensive heart disease without heart failure Coronary artery disease Diabetic neuropathy Diabetic ulcer of left foot Fungal ear infection Noncompliance Osteomyelitis of second toe of right foot Other hyperlipidemia Renal insufficiency Sepsis with acute respiratory failure Systemic inflammatory response syndrome (SIRS) Typical angina Impacted cerumen, bilateral Other asthma Right chronic otitis media Healed perforated eardrum Perforated tympanic membrane of both ears on examination Foreign body in right ear Impacted cerumen of left ear Tinnitus Hearing Loss Complicated urinary tract infection Acute urinary retention Elevated erythrocyte sedimentation rate Hemoptysis Acute subdural hematoma Epidural hematoma Finger infection Fall Diarrhea Suppurative tenosynovitis of flexor tendon Abscess of finger of left hand Concussion without loss of consciousness Weakness Shortness of breath Other acute osteomyelitis, left ankle and foot Postoperative wound dehiscence Cellulitis Left leg cellulitis Closed head injury Fall Unstable angina Abscess Laceration Atypical chest pain Onychodystrophy Postoperative edema Diabetic polyneuropathy associated with type 2 diabetes mellitus Abscess of left leg Cellulitis of left lower leg SIRS (systemic inflammatory response syndrome) Fever Sepsis Cellulitis Bacteremia Cellulitis of left foot Osteomyelitis of great toe of left foot Diabetic ulcer of left great toe IFEOMA (acute kidney injury) Renal insufficiency Elevated erythrocyte sedimentation rate Obesity (BMI 30-39.9) Hyponatremia Diabetic foot ulcer Diabetic foot infection Costal chondritis Fungal ear infection Sinusitis Bradycardia Dizziness Angina pectoris Typical angina Medication adverse effect Flank pain, acute Stable angina HHD (hypertensive heart disease) Diabetes CAD (coronary artery disease) Surgical History History of transmetatarsal amputation of right foot History of transmetatarsal amputation of right foot Presence of stent in coronary artery History of partial ray amputation of second toe of left foot Status post foot surgery History of partial amputation of toe Stented coronary artery Family History Other No significant family history Social History Smoking Status: Never smoker second hand exposure: No alcohol intake: never substance use type: denies use current occupational status: disabled Travel in the last 8 weeks: None household members: other housing: [facility] marital status: current occupational exposures/hazards: No caffeine: Yes Other Medical History Have you received the Flu Vaccine for this season: No Have you received the Pneumonia Vaccine: No Review of Systems Review of Systems Review of systems (narrative): Negative *Cardiovascular Comments: Negative *Gastrointestinal Comments: Negative *Genitourinary Comments: Negative *Musculoskeletal Comments: Negative *Neurologic Comments: Negative Meds Home Medications and Allergies Home Medications ?Medication ?Instructions ?Recorded ?Confirmed ?Type ranolazine 1,000 mg 1,000 mg PO BID 08/30/20 03/23/24 History tablet,extended release,12 hr albuterol sulfate 90 mcg/actuation 2 puff inhalation QID PRN 08/25/22 03/23/24 History aerosol inhaler SOA,wheeze tamsulosin 0.4 mg capsule 0.4 mg PO HS 01/10/23 03/23/24 History aspirin 81 mg chewable tablet 81 mg PO DAILY 01/24/23 03/23/24 History (Aspirin Childrens) citalopram 20 mg tablet 20 mg PO DAILY 01/24/23 03/23/24 History fluticasone propionate 50 1 spray intranasal BID 01/24/23 03/23/24 History mcg/actuation nasal spray,suspension acetaminophen 500 mg tablet 500 mg PO Q4H PRN Pain 05/07/23 03/23/24 History (Acetaminophen Extra Strength) bisacodyl 10 mg rectal suppository 10 mg ID DAILY PRN Constipation 05/07/23 03/23/24 History (Laxative (bisacodyl)) fluticasone furoate 100 1 inh inhalation DAILY 05/07/23 03/23/24 History mcg-vilanterol 25 mcg/dose inhalation powder (Breo Ellipta) ondansetron HCl 4 mg tablet 4 mg PO Q6H PRN nausea and vomiting 05/07/23 03/23/24 History pantoprazole 40 mg tablet,delayed 40 mg PO BID 05/07/23 03/23/24 History release quetiapine 50 mg tablet 50 mg PO DAILY 05/07/23 03/23/24 History quetiapine 50 mg tablet (Seroquel) 100 mg PO HS 05/07/23 03/23/24 History sennosides 8.6 mg-docusate sodium 2 tab-cap PO BID costipation 05/07/23 03/23/24 History 50 mg tablet (Senexon-S) metformin 1,000 mg tablet 1,000 mg PO BID #180 tabs 09/10/23 03/23/24 Rx amlodipine 5 mg tablet (Norvasc) 5 mg PO DAILY #90 tabs 01/07/24 03/23/24 Rx divalproex 250 mg tablet,delayed 250 mg PO BID 01/08/24 03/23/24 History release loperamide 2 mg capsule 2 mg PO Q4HP PRN Diarrhea 01/08/24 03/23/24 History atorvastatin 80 mg tablet 80 mg PO DAILY 02/05/24 03/23/24 History ferrous sulfate 324 mg (65 mg 324 mg PO BID 02/27/24 03/23/24 History iron) tablet,delayed release magnesium 200 mg tablet 200 mg PO DAILY #30 tabs 03/04/24 03/23/24 Rx sulfamethoxazole 800 1 tab PO BID #20 tabs 03/04/24 03/23/24 Rx mg-trimethoprim 160 mg tablet (Bactrim DS) collagenase clostridium histo. 250 1 applic topical DAILY eschar #90 03/17/24 03/23/24 Rx unit/gram topical ointment (Santyl) grams New Prescriptions to Start Prescriptions: Allergies Allergy/AdvReac Type Severity Reaction Status Date / Time morphine [MORPHINE] Allergy Severe I-ITCHING Verified 03/23/24 07:20 influenza virus vaccine qs Allergy Unknown Verified 03/23/24 07:20 2018- (6 mos and up) allergy [From Fluarix Quad [id number] reaction (PF)] Exam Data for Last 24 hours Vital signs and Labs for Last 24 Hours: Temp Pulse Resp BP Pulse Ox O2 Del Method 97.7 F 89 18 144/80 H 98 Room Air 03/23/24 07:25 03/23/24 07:25 03/23/24 07:25 03/23/24 07:25 03/23/24 07:25 03/23/24 07:25 I & O for Last 24 hours: Intake & Output 03/20/24 03/21/24 03/22/24 03/23/24 23:59 23:59 23:59 23:59 Weight 231 lb *Routine HEENT Exam Head: Present normocephalic Eye: Present EOMI and PERRL ENT: Present mucous membranes moist *Routine Neck Exam Neck: Present supple *Routine Respiratory Exam Respiratory: Present CTA bilaterally *Routine Cardiovascular Exam Cardiovascular: Present RRR *Routine Abdominal Exam Abdominal: Present soft and normoactive bowel sounds; Absent tenderness *Routine Rectal Exam Rectal:: deferred *Routine Genitalia Exam Genitalia:: deferred *Routine Extremities Exam Extremities: Absent cyanosis, clubbing or edema *Routine Skin Exam Skin: Present warm; Absent rash *Routine Neurological Exam Neurological: Present alert and oriented X3 Assessment and Plan *Assessment and plan (1) Anemia due to gastrointestinal blood loss: Status: Acute Category: Medical Code(s): D50.0 - Iron deficiency anemia secondary to blood loss (chronic) Plan A/P: 1. Anemia?suspected occult GI blood loss is the preprocedural diagnosis. The patient will be anesthetized/sedated using MAC sedation. The patient has been seen and examined. Cardiac and lung assessment prior to the examination is stable. Proceed with planned colonoscopy
--- NOTE | 2024-03-23 09:01 | HMH.PROCNOTE ---
[facility] Procedure Note Date: 03/23/24 Time: Procedure Note:: Colonoscopy Procedure Report: Colonoscopy with cold snare polypectomy Endoscopist: Shailesh Farias II, MD Referring physician: Yonis Magaña MD Date of Procedure: March 23, 2024 Equipment: Olympus 190 variable stiffness pediatric colonoscope Sedation: MAC sedation Indication: Mr. Jain is a 64-year-old gentleman from the [facility]. The patient has had marked anemia requiring blood transfusion. His hemoglobin and hematocrit on 03/04 was 7.2 and 20.7. The patient's most recent hemoglobin and hematocrit on 03/17 was 9.8 and 30.0 after transfusion. He also has had some thrombocytopenia and his platelet count on 03/04 was 63,000. He has normal renal function. He is a poor historian and uncertain whether he has seen any bright red blood or hematochezia. I do not see Hemoccult testing or iron studies. Procedure: Prior to the procedure, a history and physical exam was performed, and patient's medications and allergies were reviewed. The risks, benefits and alternatives of the sedation and procedure were discussed with the patient. All questions were answered and informed consent was obtained. The patient was brought to the procedure room. Patient identification and proposed procedure were verified by the physician and the nurse. The patient was placed in a left lateral decubitus position and the scope was passed under direct vision. Throughout the procedure, the patient's blood pressure, pulse, and oxygen saturations were monitored continuously. The colonoscopy was accomplished without difficulty. The patient tolerated the procedure well. Findings: On digital rectal examination there was normal rectal tone. There were no external hemorrhoids. The colonoscope was introduced through the anal canal to the rectum and advanced to the cecum. The ileocecal valve and appendiceal orifice were identified. The scope was advanced a short distance into the ileum which appeared grossly normal. The scope was then withdrawn into the colon. There were 3 polyps (ascending x 1 (4 mm) and ascending x 2 (5 and 6 mm)). These were removed via cold snare polypectomy. The remaining cecum, ascending and transverse colon and mucosa were grossly normal. There was evidence of mild melanosis coli throughout the colon. There were scattered diverticuli throughout the descending and sigmoid colon (LEFT colon). The rectum itself was normal. Upon retroflexion within the rectum there were grade 1-2 internal hemorrhoids. The preparation was excellent throughout with Hawthorne Preparation Score of 9. The cecal time was 11 minutes. Impression: 1. Diminutive colonic polyps x 3 2. Left-sided diverticulosis 3. Grade 1-2 internal hemorrhoids 4. Mild melanosis coli Plan: There was certainly no clear source for the patient's profound anemia. I would recommend Hemoccult testing and iron studies with iron repletion if he is low. If the patient is Hemoccult positive, I would consider EGD.
[2024-03-23 09:30] VITALS: BP 108/66; PULSE 77; RESP 14; TEMP 36.3; O2SAT 98
[2024-03-23 09:40] VITALS: BP 115/66; PULSE 76; RESP 14; O2SAT 100
[2024-03-23 09:50] VITALS: BP 113/71; PULSE 77; RESP 16; O2SAT 98
[2024-03-23 10:00] VITALS: BP 125/72; PULSE 72; RESP 16; O2SAT 98
[2024-03-23 11:56] LABS: Iron 57 ug/dL (49-181)
[2024-03-23 12:05] LABS: Total Iron Binding Capacity 188 ug/dL (261-462)
[2024-03-23 12:32] LABS: Ferritin 170 ng/ml (17.9-464)
[2024-03-24 06:20] LABS: POC Glucose,Bedside 97 (70-110)
== END 2024-03-23 10:20 | disposition home or self-care (01) ==
PROVIDERS: PCP Family Medicine; Visit Provider Internal Medicine Gastroenterology
PROC: 0DJD8ZZ Inspection of Lower Intestinal Tract, Via Natural or Artificial Opening Endoscopic (ICD-10-PCS; CPT 45378; principal; 2024-03-23 09:00)
DX: D50.0 Iron deficiency anemia secondary to blood loss (chronic) (principal); D12.2 Benign neoplasm of ascending colon; D12.4 Benign neoplasm of descending colon; K57.30 Diverticulosis of large intestine without perforation or abscess without bleeding; K64.1 Second degree hemorrhoids; K63.89 Other specified diseases of intestine; E11.9 Type 2 diabetes mellitus without complications; Z79.899 Other long term (current) drug therapy; Z79.84 Long term (current) use of oral hypoglycemic drugs
CPT/HCPCS: 45385; 36415; 82728; 82962; 83540; 83550; 88305; J7120

== ENCOUNTER 2024-03-24 12:13 | Outpatient (CLI) | payer MEDICARE, MEDICAID, SELFPAY ==
[2024-03-24 12:36] LABS: Basophils % 0.4 % (0.1-2.0); Eosinophils # 0.2 K/mm3 (0.0-0.4); Eosinophils % 3.3 % (0.1-12.0); Hematocrit 29.9 % (42.0-52.0); Hemoglobin 9.7 g/dL (14.1-18.0); Lymphocytes # 1.7 K/mm3 (0.7-4.5); Lymphocytes % 30.8 % (10-50); Mean Corpuscular HGB Conc 32.5 g/dL (31.8-35.4); Mean Corpuscular Hemoglobin 31.3 pg (27.0-31.2); Mean Corpuscular Volume 96.4 fl (80-94); Mean Platelet Volume 7.6 fl (7.4-10.4); Monocytes # 0.6 K/mm3 (0.1-1.0); Monocytes % 10.2 % (1.7-9.3); Neutrophils # 3.1 K/mm3 (1.8-7.8); Neutrophils % 55.2 % (37.0-80.0); Platelet Count 307 K/mm3 (142-424); Red Cell Distribution Width 18.7 % (11.5-17.5); White Blood Count 5.6 K/mm3 (4.8-10.8)
[2024-03-24 13:08] LABS: Albumin Level 3.2 g/dl (3.5-5.0); Chloride 104 mmol/L (98-107); Sodium 137 mmol/L (136-145)
[2024-03-24 13:09] LABS: Potassium 4.5 mmoL/L (3.5-5.1)
[2024-03-24 13:11] LABS: Alanine Aminotransferase 21 U/L (12-78); Albumin/Globulin Ratio 0.9 (1.1-1.8); Alkaline Phosphatase 86 U/L (38-126); Anion Gap 15.5 mEq/L (5-15); Aspartate Amino Transferase 36 U/L (17-59); Bilirubin,Total 0.5 mg/dl (0.2-1.3); Blood Urea Nitrogen 5 mg/dl (9-20); Carbon Dioxide 22 mmol/L (22.0-30.0); Estimated Glomerular Filt Rate 97 ml/min (>60); GFR (African American) 117 ML/MIN (>60); Globulin 3.4 g/dL (1.3-3.2); Total Protein,Serum 6.6 g/dl (6.3-8.2)
[2024-03-24 13:12] LABS: Calcium 8.5 mg/dl (8.4-10.2); Glucose 108 mg/dl (74-100)
[2024-03-24 13:17] LABS: C-Reactive Protein 11.5 mg/L (0-4)
[2024-03-24 13:37] LABS: Erythrocyte Sedimentation Rate 140 mm/hr (0-20)
== END 2024-03-24 23:59 | disposition home or self-care (01) ==
LOC: LAB.DROPOF 12:15
PROVIDERS: Family Medicine; PCP Internal Medicine; Visit Provider Internal Medicine
DX: E11.42 Type 2 diabetes mellitus with diabetic polyneuropathy (principal); Z22.322 Carrier or suspected carrier of Methicillin resistant Staphylococcus aureus; I73.9 Peripheral vascular disease, unspecified; Z79.4 Long term (current) use of insulin; E66.9 Obesity, unspecified; Z91.199 Patient's noncompliance with other medical treatment and regimen due to unspecified reason; Z89.421 Acquired absence of other right toe(s); I11.9 Hypertensive heart disease without heart failure; E78.2 Mixed hyperlipidemia; I25.110 Atherosclerotic heart disease of native coronary artery with unstable angina pectoris; D64.9 Anemia, unspecified
CPT/HCPCS: 80053; 85025; 85651; 86140

== ENCOUNTER 2024-04-09 07:53 | Day surgery (SDC) | payer MEDICARE, MEDICAID, SELFPAY ==
--- NOTE | 2024-04-02 10:51 | SUR.PREOP ---
spoke with Adrianna at [facility] regarding pt's instruction for his procedure tomorrow.
[2024-04-09] VITALS (20 sets, daily range): BP systolic 119–160; BP diastolic 69–88; PULSE 61–78; RESP 10–24; TEMP 36.9; O2SAT 95–100; BMI 32.8
--- NOTE | 2024-04-09 07:08 | IR_ITS ---
APPROVED REPORT Patient Location: Outpatient PROCEDURES Catheter placed in the abdominal aorta Abdominal aortography Repositioning of the cath and abdominal aorta Bilateral iliofemoral runoff INDICATION Toole claudication class V, Abnormal MARITA Informed consent was obtained prior to the procedure. COMPLICATIONS NONE Estimated Blood Loss: LESS THAN 10 ML TECHNIQUE 1% lidocaine used anesthetize left groin left femoral artery is accessed via the central technique 5 Mosotho sheath is placed in left femoral artery. A pigtail catheter is advanced to the abdominal aorta and abdominal aortography was performed. The catheter was then repositioned and bilateral iliofemoral was performed. Then the procedure the patient was transferred to the postop putting in stable addition for sheath removal ANGIOGRAPHIC RESULTS The infrarenal abdominal aorta and bilateral common internal/external iliac arteries are normal Bilateral profunda femoris arteries common femoral arteries and superficial femoral arteries are normal Bilateral popliteal arteries normal Three-vessel runoff below the knee bilaterally IMPRESSION No angiographic evidence of macrovascular atherosclerotic plaque as described above. Poor visualization of the small vessels below the knee bilaterally PLAN 1. Treatment of microvascular disease 2. Evaluation of venous insufficiency 3. Supportive care Electronically signed by : Heladio Alonso MD 04/09/2024 13:29:30
[2024-04-09 08:22] LABS: Basophils # 0.1 K/mm3 (0-0.2); Basophils % 0.8 % (0.1-2.0); Eosinophils # 0.4 K/mm3 (0.0-0.4); Eosinophils % 3.9 % (0.1-12.0); Hematocrit 32.9 % (42.0-52.0); Lymphocytes # 1.9 K/mm3 (0.7-4.5); Lymphocytes % 17.6 % (10-50); Mean Corpuscular HGB Conc 33.3 g/dL (31.8-35.4); Mean Corpuscular Hemoglobin 31.7 pg (27.0-31.2); Mean Corpuscular Volume 95.2 fl (80-94); Mean Platelet Volume 8.3 fl (7.4-10.4); Monocytes % 9.1 % (1.7-9.3); Neutrophils # 7.4 K/mm3 (1.8-7.8); Neutrophils % 68.7 % (37.0-80.0); Platelet Count 178 K/mm3 (142-424); Red Blood Count 3.46 M/mm3 (4.60-6.20); Red Cell Distribution Width 18.2 % (11.5-17.5); White Blood Count 10.8 K/mm3 (4.8-10.8)
[2024-04-09 08:40] LABS: Anion Gap 17.2 mEq/L (5-15); Blood Urea Nitrogen 9 mg/dl (9-20); Calcium 9.1 mg/dl (8.4-10.2); Carbon Dioxide 27 mmol/L (22.0-30.0); Chloride 97 mmol/L (98-107); Creatinine Clearance Estimated 113 mL/min (50-200); Estimated Glomerular Filt Rate 97 ml/min (>60); GFR (African American) 117 ML/MIN (>60); Glucose 110 mg/dl (74-100); Potassium 4.2 mmoL/L (3.5-5.1); Sodium 137 mmol/L (136-145)
[2024-04-09] MEDS: LIDOCAINE 1% 10ML MDV 20 ML IJ (10:57)
[2024-04-09] MEDS: HEPARIN 1,000 UNITS/500ML NS (CATH LAB) 3000 UNIT IV (10:57)
[2024-04-09] MEDS: diphenhydrAMINE 50MG/ML VIAL 50 MG IV (10:58)
[2024-04-09] MEDS: 0.9 % SODIUM CHLORIDE 500 ML 25 ML IV (10:58)
[2024-04-09] MEDS: MIDAZOLAM HCL 1MG/ML 5ML VIAL 1 MG IV (11:28)
[2024-04-09] MEDS: FENTANYL 100MCG/2ML VIAL 50 MCG IV (11:28)
[2024-04-09] MEDS: IOHEXOL-240 100ML BOTTLE 100 ML IV (14:39)
== END 2024-04-09 14:57 | disposition home or self-care (01) ==
PROVIDERS: PCP Family Medicine; Visit Provider Internal Medicine
DX: E11.621 Type 2 diabetes mellitus with foot ulcer (principal); L97.513 Non-pressure chronic ulcer of other part of right foot with necrosis of muscle; I25.118 Atherosclerotic heart disease of native coronary artery with other forms of angina pectoris; Z79.899 Other long term (current) drug therapy; I70.203 Unspecified atherosclerosis of native arteries of extremities, bilateral legs; I10 Essential (primary) hypertension
CPT/HCPCS: 36247; 75625; 75716; 80048; 85025; 99152; C1725; C1769; C1894; J1200; J1644; J2250; J3010; Q9966

== ENCOUNTER 2024-04-20 15:19 | Inpatient (IN) | payer MEDICARE, MEDICAID, SELFPAY ==
[2024-04-20] VITALS (20 sets, daily range): BP systolic 94–154; BP diastolic 50–84; PULSE 66–89; RESP 17–20; TEMP 36.2–43; O2SAT 92–100; BMI 41.6
[2024-04-20] MEDS: LACTATED RINGERS 1000ML 1,000 ML 100 ML IV (10:56)
[2024-04-20] MEDS: CEFAZOLIN SODIUM 2 GM in 0.9 % SODIUM CHLORIDE 100 ML IV (11:50)
[2024-04-20 12:30] LABS: POC Glucose,Bedside 97 (70-110)
--- NOTE | 2024-04-20 12:50 | P.PNANES_ITS ---
[facility] Disclaimer: The information contained in this section may have been updated after the patient was seen, as this information can be updated by other users. Medical History Anemia Diabetes mellitus (Unknown) Acute right otitis media Otitis externa of right ear Impacted cerumen of both ears Fatigue Dyspnea Abnormal electrocardiogram [ECG] [EKG] Hyponatremia Angina at rest Lower extremity edema Obesity, Class II, BMI 35-39.9, isolated (see actual BMI) Coronary artery disease Diabetic neuropathy Hypertensive heart disease without heart failure Coronary artery disease Diabetic neuropathy Diabetic ulcer of left foot Fungal ear infection Noncompliance Osteomyelitis of second toe of right foot Other hyperlipidemia Renal insufficiency Sepsis with acute respiratory failure Systemic inflammatory response syndrome (SIRS) Typical angina Impacted cerumen, bilateral Other asthma Right chronic otitis media Healed perforated eardrum Perforated tympanic membrane of both ears on examination Foreign body in right ear Impacted cerumen of left ear Tinnitus Hearing Loss Complicated urinary tract infection Acute urinary retention Elevated erythrocyte sedimentation rate Hemoptysis Acute subdural hematoma Epidural hematoma Finger infection Fall Diarrhea Suppurative tenosynovitis of flexor tendon Abscess of finger of left hand Concussion without loss of consciousness Weakness Shortness of breath Other acute osteomyelitis, left ankle and foot Postoperative wound dehiscence Cellulitis Left leg cellulitis Closed head injury Fall Unstable angina Abscess Laceration Atypical chest pain Onychodystrophy Postoperative edema Diabetic polyneuropathy associated with type 2 diabetes mellitus Abscess of left leg Cellulitis of left lower leg SIRS (systemic inflammatory response syndrome) Fever Sepsis Cellulitis Bacteremia Cellulitis of left foot Osteomyelitis of great toe of left foot Diabetic ulcer of left great toe IFEOMA (acute kidney injury) Renal insufficiency Elevated erythrocyte sedimentation rate Obesity (BMI 30-39.9) Hyponatremia Diabetic foot ulcer Diabetic foot infection Costal chondritis Fungal ear infection Sinusitis Bradycardia Dizziness Angina pectoris Typical angina Medication adverse effect Flank pain, acute Stable angina HHD (hypertensive heart disease) Diabetes CAD (coronary artery disease) Surgical History History of transmetatarsal amputation of right foot History of transmetatarsal amputation of right foot Presence of stent in coronary artery History of partial ray amputation of second toe of left foot Status post foot surgery History of partial amputation of toe Stented coronary artery Family History Other No significant family history Social History Smoking Status: Never smoker second hand exposure: No alcohol intake: never substance use type: denies use current occupational status: disabled Travel in the last 8 weeks: None household members: other housing: skilled nursing marital status: current occupational exposures/hazards: No caffeine: Yes [facility] Anesthesia Checklist Patient Identification Patient Identification: Arm Band Structural Data Admitted From: [facility] Planned Operative Procedure/s: R BKA Consent for Planned Operative Procedure(s) Verified: Yes Verified Documents: Surgical Consent, History and Physical and Cardiac Clearance NPO Status Verified Time NPO: 00:00 Chart Verification Results Verified: CBC and BMP Additional verifications Anesthesia Reactions: No Hx Blood Transfusions: Yes Blood Transfusion Reaction: No Airway Assessment Mallampati Score:: Class III C-Spine Mobility Assessed: Yes TMJ Mobility Assessed: Yes Dentition: Poor Dentition Neurological Assessment Level of Consciousness: Awake Hx Seizures: No Numbness or tingling in extremities: Yes Anesthesia Plan Anesthesia Risk discussed: Yes Anesthesia Plan: Verified ASA Class: III Anesthesia Type: General w/block
--- NOTE | 2024-04-20 14:46 | P.OP_ITS ---
Date of procedure: 04/20/24 Pre-op Diagnosis:: Nonhealing wound right lower extremity MRSA infection and peripheral vascular disease Post-op Diagnosis:: Same Procedure performed:: Right below the knee amputation Surgeon:: Conner Moses DO Weatherization Coordinator(s):: Juan BEARDEN HYDROTHERAPIST:: Charli Bass Anesthesia: GETA Estimated blood loss (mL): 25 Operative findings:: Necrotic nonhealing ulcer with infection right foot Operative note:: Patient is identified preoperatively. Right lower extremity marked with yes my initials. Underwent a block with anesthesia. Then transported to operative suite placed upon operating bed. General anesthesia was administered and airway was secured. Right lower extremity was then prepped and draped in normal sterile fashion. The dressing of the infected foot was rewrapped and wrapped with Ioban prior to prep. Once prepped and draped final operative timeout performed to identify proper patient procedure and extremity. Everyone involved in the case agreed. There were no counter indications to beginning. He did receive preoperative antibiotics. Ruler was used to faye the planned skin incision 15 cm distal to the knee joint and planned posterior flap below-knee amputation. Esmarch was not used but pneumatic tourniquet was inflated to 300 mmHg. Skin knife is used to incise through skin anteriorly. Dissection was taken down to find anterior lateral vascular bundle which was clamped and ligated with a stick tie and silk hand ties. Dissection was taken around debulking the anterior compartment the tibia was exposed and the fibula was exposed. Hohmann retractors were placed behind the tibia and using a precision saw all osteotomy of the tibia was performed approximately 12 to 13 cm below the knee joint. Osteotomy of the fibula was performed proximal to the tibia cut. In the amputation knife was utilized to remove the infected foot and lower leg. At that time attention was brought to dissecting neurovascular bundle and pulling nerves on stretch cutting them and allow them to retract. Neurovascular bundles were stick tied and hand tied in normal fashion. Deep compartments were debulked plan for the myodesis was performed to allow for myodesis over the tibia Debulking of the wound was undertaken the edges of the wounds were then closed with 0 Vicryl stitch myodesis was performed with #5 Ethibond stitch and then subsequently the incision was closed around from medial to lateral and from lateral to medial in normal fashion with 0 Vicryl. Tourniquet was deflated prior to final closure to ensure hemostasis. Deep layers with 0 Vicryl completed followed by a layer of 2-0 Vicryl. Surgical clips in the skin for closure Sterile surgical dressing placed followed by posterior splint with the knee in extension and wrapped with an Jose Luis bandage patient waken anesthesia taken recovery stable condition. Condition: stable Disposition: PACU Complications:: None apparent
--- NOTE | 2024-04-20 14:48 | EXP.ANES.I ---
[facility] Anesthesia Record Part I Anesthesia Record I Intake, IV Amount: 1,100 Hydration: Adequate Estimated blood loss (mL): 100 Urine output (mL): 0 Blood Pressure: 94/50 SaO2: 96 Pulse Rate: 66 Airway Patency: Patent Respiratory Rate: 17 Temperature: 97.4 F Patient is:: Drowsy Stable to PACU at:: 14:45
--- NOTE | 2024-04-20 15:27 | P.HP_ITS ---
History of Present Illness *Admission Date: 04/20/24 *Reason for visit:: BKA *History of present illness: 64-year-old male with medical history including hypertension, mood disorder, diabetes, BPH. Recently had partial amputation of his right foot and was being followed by podiatry. Unfortunately developed worsening infection necessitating right BKA. Was brought in for elective BKA by orthopedics today. Medicine consulted to assist with care of patient and management of antibiotic regimen. Patient stable on room air. Denies any fever or chills. Having some soreness in his leg. Tolerating p.o. intake. [facility] Disclaimer: The information contained in this section may have been updated after the patient was seen, as this information can be updated by other users. Medical History Anemia Diabetes mellitus (Unknown) Acute right otitis media Otitis externa of right ear Impacted cerumen of both ears Fatigue Dyspnea Abnormal electrocardiogram [ECG] [EKG] Hyponatremia Angina at rest Lower extremity edema Obesity, Class II, BMI 35-39.9, isolated (see actual BMI) Coronary artery disease Diabetic neuropathy Hypertensive heart disease without heart failure Coronary artery disease Diabetic neuropathy Diabetic ulcer of left foot Fungal ear infection Noncompliance Osteomyelitis of second toe of right foot Other hyperlipidemia Renal insufficiency Sepsis with acute respiratory failure Systemic inflammatory response syndrome (SIRS) Typical angina Impacted cerumen, bilateral Other asthma Right chronic otitis media Healed perforated eardrum Perforated tympanic membrane of both ears on examination Foreign body in right ear Impacted cerumen of left ear Tinnitus Hearing Loss Complicated urinary tract infection Acute urinary retention Elevated erythrocyte sedimentation rate Hemoptysis Acute subdural hematoma Epidural hematoma Finger infection Fall Diarrhea Suppurative tenosynovitis of flexor tendon Abscess of finger of left hand Concussion without loss of consciousness Weakness Shortness of breath Other acute osteomyelitis, left ankle and foot Postoperative wound dehiscence Cellulitis Left leg cellulitis Closed head injury Fall Unstable angina Abscess Laceration Atypical chest pain Onychodystrophy Postoperative edema Diabetic polyneuropathy associated with type 2 diabetes mellitus Abscess of left leg Cellulitis of left lower leg SIRS (systemic inflammatory response syndrome) Fever Sepsis Cellulitis Bacteremia Cellulitis of left foot Osteomyelitis of great toe of left foot Diabetic ulcer of left great toe IFEOMA (acute kidney injury) Renal insufficiency Elevated erythrocyte sedimentation rate Obesity (BMI 30-39.9) Hyponatremia Diabetic foot ulcer Diabetic foot infection Costal chondritis Fungal ear infection Sinusitis Bradycardia Dizziness Angina pectoris Typical angina Medication adverse effect Flank pain, acute Stable angina HHD (hypertensive heart disease) Diabetes CAD (coronary artery disease) Surgical History History of transmetatarsal amputation of right foot History of transmetatarsal amputation of right foot Presence of stent in coronary artery History of partial ray amputation of second toe of left foot Status post foot surgery History of partial amputation of toe Stented coronary artery Family History No significant family history Social History Smoking Status: Never smoker second hand exposure: No alcohol intake: never substance use type: denies use current occupational status: disabled Travel in the last 8 weeks: None household members: other housing: [facility] marital status: current occupational exposures/hazards: No caffeine: Yes Other Medical History Have you received the Flu Vaccine for this season: No Have you received the Pneumonia Vaccine: No Review of Systems Review of Systems Review of systems (narrative): 14 point review of systems performed, pertinent positives and negatives as per HPI Meds Home Medications and Allergies Home Medications ?Medication ?Instructions ?Recorded ?Confirmed ?Type ranolazine 1,000 mg 1,000 mg PO BID 08/30/20 04/20/24 History tablet,extended release,12 hr albuterol sulfate 90 mcg/actuation 2 puff inhalation QID PRN 08/25/22 04/20/24 History aerosol inhaler SOA,wheeze tamsulosin 0.4 mg capsule 0.4 mg PO HS 01/10/23 04/20/24 History aspirin 81 mg chewable tablet 81 mg PO DAILY 01/24/23 04/20/24 History (Aspirin Childrens) fluticasone propionate 50 1 spray intranasal BID 01/24/23 04/20/24 History mcg/actuation nasal spray,suspension acetaminophen 500 mg tablet 500 mg PO Q4H PRN Pain 05/07/23 04/20/24 History (Acetaminophen Extra Strength) bisacodyl 10 mg rectal suppository 10 mg WI DAILY PRN Constipation 05/07/23 04/20/24 History (Laxative (bisacodyl)) fluticasone furoate 100 1 inh inhalation DAILY 05/07/23 04/20/24 History mcg-vilanterol 25 mcg/dose inhalation powder (Breo Ellipta) ondansetron HCl 4 mg tablet 4 mg PO Q6H PRN nausea and vomiting 05/07/23 History pantoprazole 40 mg tablet,delayed 40 mg PO BID 05/07/23 04/20/24 History release quetiapine 50 mg tablet 50 mg PO DAILY 05/07/23 04/20/24 History quetiapine 50 mg tablet (Seroquel) 100 mg PO HS 05/07/23 04/20/24 History sennosides 8.6 mg-docusate sodium 2 tab-cap PO BID costipation 05/07/23 04/20/24 History 50 mg tablet (Senexon-S) metformin 1,000 mg tablet 1,000 mg PO BID #180 tabs 09/10/23 04/20/24 Rx amlodipine 5 mg tablet (Norvasc) 5 mg PO DAILY #90 tabs 01/07/24 04/20/24 Rx divalproex 250 mg tablet,delayed 250 mg PO BID 01/08/24 04/20/24 History release loperamide 2 mg capsule 2 mg PO Q4HP PRN Diarrhea 01/08/24 04/20/24 History atorvastatin 80 mg tablet 80 mg PO DAILY 02/05/24 04/20/24 History ferrous sulfate 324 mg (65 mg 324 mg PO BID 02/27/24 04/20/24 History iron) tablet,delayed release divalproex 250 mg tablet,delayed 250 mg PO DAILY 04/20/24 04/20/24 History release (Depakote) magnesium 200 mg tablet 400 mg PO DAILY 04/20/24 04/20/24 History multivitamin 1 tab PO DAILY 04/20/24 04/20/24 History pollens extract 30 tab PO DAILY 04/20/24 04/20/24 History potassium chloride 10 mEq 10 meq PO BID 04/20/24 04/20/24 History tablet,extended release(part/cryst) sertraline 50 mg tablet 50 mg PO DAILY 04/20/24 04/20/24 History New Prescriptions to Start Prescriptions: Allergies Allergy/AdvReac Type Severity Reaction Status Date / Time morphine (MORPHINE) Allergy Severe I-ITCHING Verified 04/14/24 13:51 influenza virus vaccine qs Allergy Unknown Verified 04/14/24 13:51 2018- (6 mos and up) (From allergy Fluarix Quad [id number] (PF)) reaction Exam Data for Last 24 hours Vital signs and Labs for Last 24 Hours: Temp Pulse Resp BP Pulse Ox O2 Del Method 97.2 F L 66 18 110/62 97 Room Air 04/20/24 15:15 04/20/24 15:15 04/20/24 15:15 04/20/24 15:15 04/20/24 15:15 04/20/24 15:15 Laboratory Results - last 24 hr 04/20/24 11:11: POC Glucose 97 I & O for Last 24 hours: Intake & Output 04/17/24 04/18/24 04/19/24 04/20/24 23:59 23:59 23:59 23:59 Intake Total 1100 / 1100 Balance 1100 / 1100 Weight 117.027 kg Constitutional Constitutional: no acute distress, morbidly obese, chronically ill appearing and cooperative *Routine HEENT Exam Head: Present normocephalic and atraumatic Eye: Present EOMI and PERRL ENT: Present mucous membranes moist; Absent dentition normal *Routine Neck Exam Neck: Absent JVD or lymphadenopathy *Routine Respiratory Exam Respiratory: Present rhonchi, normal respiratory effort and symmetric chest movement *Routine Cardiovascular Exam Cardiovascular: Present RRR *Routine Abdominal Exam Abdominal: Present soft and normoactive bowel sounds *Routine Rectal Exam Rectal:: deferred *Routine Genitalia Exam Genitalia:: deferred *Routine Extremities Exam Extremities: Absent edema or full ROM Comments: Right leg in postop bandage covering BKA stump. *Routine Skin Exam Skin: Present dry and wounds *Routine Neurological Exam Neurological: Present alert, oriented X3, moving all extremities, vision grossly intact and hearing grossly intact; Absent sensory deficit or motor deficit Routine Psychiatric Exam Psychiatric: Present cooperative Assessment and Plan *Assessment and plan (1) Cellulitis of foot associated with diabetes mellitus: Status: Acute Category: Medical Code(s): E11.628 - Type 2 diabetes mellitus with other skin complications; L03.119 - Cellulitis of unspecified part of limb (2) Diabetic ulcer of foot associated with diabetes mellitus due to underlying condition, with muscle involvement without evidence of necrosis: Status: Acute Qualifiers: Diabetic foot ulcer location: unspecified part of foot Laterality: right Qualified Code(s): E08.621 - Diabetes mellitus due to underlying condition with foot ulcer; L97.515 - Non-pressure chronic ulcer of other part of right foot with muscle involvement without evidence of necrosis Category: Medical Code(s): E08.621 - Diabetes mellitus due to underlying condition with foot ulcer; L97.505 - Non-pressure chronic ulcer of other part of unspecified foot with muscle involvement without evidence of necrosis (3) Status post below knee amputation of right lower extremity: Status: Acute Category: Surgical Code(s): Z89.511 - Acquired absence of right leg below knee (4) PAD (peripheral artery disease): Status: Suspected Category: Medical Code(s): I73.9 - Peripheral vascular disease, unspecified (5) Anemia: Status: Acute Category: Medical Code(s): D64.9 - Anemia, unspecified (6) MRSA (methicillin resistant staph aureus) culture positive: Status: Acute Category: Medical Code(s): Z22.322 - Carrier or suspected carrier of Methicillin resistant Staphylococcus aureus (7) Status post partial amputation of right foot: Status: Acute Category: Surgical Code(s): Z89.431 - Acquired absence of right foot (8) History of transmetatarsal amputation of right foot: Status: Acute Category: Surgical Code(s): Z89.431 - Acquired absence of right foot (9) Diabetic neuropathy: Status: Acute Category: Medical Code(s): E11.40 - Type 2 diabetes mellitus with diabetic neuropathy, unspecified (10) Coronary artery disease: Status: Acute Category: Medical Code(s): I25.10 - Atherosclerotic heart disease of lower [place] coronary artery without angina pectoris (11) Obesity (BMI 30-39.9): Status: Chronic Category: Medical Code(s): E66.9 - Obesity, unspecified (12) Type 2 diabetes mellitus with diabetic polyneuropathy, with long-term current use of insulin: Status: Chronic Category: Medical Code(s): E11.42 - Type 2 diabetes mellitus with diabetic polyneuropathy; Z79.4 - halfway (current) use of insulin (13) HHD (hypertensive heart disease): Status: Chronic Qualifiers: Heart failure presence: without heart failure Qualified Code(s): I11.9 - Hypertensive heart disease without heart failure Category: Medical Code(s): I11.9 - Hypertensive heart disease without heart failure Plan This is a 64-year-old male who presented for elective right BKA due to nonhealing wound of right foot with previous partial amputations of foot. Given failure of antibiotics and conservative surgical management, the only option for definitive cure of infection and wound is for right BKA. Discussed case with orthopedics, requests admission and management after surgery. I agreed to admit. Initiated on empiric prophylactic antibiotics with daptomycin and cefazolin. Patient tolerated the procedure well. Problems addressed as follows: Chronic right foot cellulitis and diabetic ulcer Nonhealing wound Status post right BKA -Discussed case with orthopedics, tolerated procedure well, would like to admit for monitoring in the hospital and evaluation of wound daily for few days given patient's extensive history of poor healing. - Review of patient's previous culture shows various staph species over the past few months. He has had staph RES that is sensitive to daptomycin but has mixed resistance to Vanco along with a staph gluteus. Will continue cefazolin postop for 2 doses per standard orthopedic procedure. Will also add daptomycin once daily for 3 days. Patient has essentially achieved source control with amputation however given previous infections and pathogens, will cover empirically for short course to decrease risk of infection with new clean healthy surgical wound. Anemia -Secondary to chronic disease and blood loss - Most recent hemoglobin 1110 days ago. Platelets 178. Repeat CBC, CMP, magnesium ordered for the morning. White count normal at that time at 10.8. History of hyponatremia Labs obtained on 04/09 with normal sodium at 137, chloride 97, potassium 4.2. Kidney function at baseline with BUN 9, creatinine 0.8. Coronary artery disease - S/P [facility] 2019 with no intervention. Previous cardiac catheterization with stent deployment as noted. Patient was evaluated by cardiology preoperatively. Holding antiplatelet therapy and aspirin due to bleeding/anemia/thrombocytopenia - Continue statin Hypertension: Routine blood pressure monitoring. continue home therapy with amlodipine 5mg daily Diabetes: Fingersticks ACHS, Hemoglobin A1c 5.4% last visit 2 months ago. sliding scale insulin during admission. Diabetic diet Continue Depakote 500 mg in the morning and 250 mg at night for mood Continue Zoloft 50 mg daily for mood Continue Seroquel 100 mg nightly for sleep and mood Continue magnesium 400 mg daily Continue Breo 1 inhalation daily for COPD Continue pantoprazole 40 mg twice daily for GERD Continue tamsulosin 0.4 mg nightly for BPH Full code Diabetic diet Holding anticoagulation in the setting of anemia and right BKA
[2024-04-20] MEDS: LACTATED RINGERS 1000ML 1,000 ML 75 ML IV (15:51)
[2024-04-20] MEDS: SODIUM CHLORIDE 0.9% IV (16:32)
[2024-04-20] MEDS: DAPTOMYCIN IV (16:32)
[2024-04-20] MEDS: HYDROCODONE/APAP 5/325 MG TABLET 2 TAB PO ×2 (18:45→23:00)
--- NOTE | 2024-04-20 20:38 | PC.NURSE ---
Patient has a home medication order for ferrous sulfate 324 mg PO. Sid VICTOR was paged at this time concerning the dosage, for ferrous sulfate 325 mg PO pills are in stock (no 324 mg pills). She said that it will be ok to administer the 325 mg PO pill.
[2024-04-20] MEDS: SENNOSIDES 8.6MG/DOCUSATE 50MG TABLET 2 TAB PO (20:51)
[2024-04-20] MEDS: PANTOPRAZOLE 40MG TABLET 40 MG PO (20:51)
[2024-04-20] MEDS: CEFAZOLIN SODIUM 1 GM in 0.9 % SODIUM CHLORIDE 50 ML IV (20:51)
[2024-04-20] MEDS: TAMSULOSIN 0.4MG CAPSULE 0.4 MG PO (20:51)
[2024-04-20] MEDS: DIVALPROEX 250 MG 250 EACH PO (20:54)
[2024-04-20] MEDS: [UNRECOGNIZED DRUG - OTHER] PO (20:55)
[2024-04-20] MEDS: FERROUS SULFATE PO (20:55)
[2024-04-20] MEDS: QUETIAPINE 50 MG 100 EACH PO (20:56)
[2024-04-21] VITALS: BP 122/63; PULSE 83; RESP 16; TEMP 36.8; O2SAT 97
[2024-04-21] MEDS: CEFAZOLIN SODIUM 1 GM in 0.9 % SODIUM CHLORIDE 50 ML IV (01:50)
[2024-04-21] MEDS: HYDROCODONE/APAP 5/325 MG TABLET 2 TAB PO (03:25)
--- NOTE | 2024-04-21 03:31 | PC.NURSE ---
Addendum entered by Lourdes Nathan RN 04/21/24 04:30: Patient was straight cathed. Approximately 520 mL of urine was able to drain from the catheter. Patient tolerated the intervention well and reported some immediate lower abdominal relief. Urine appearance was dark yellow and transparent with minimal odor. Addendum entered by Lourdes Nathan RN 04/21/24 03:52: Bladder scanner showed 585 mL of urine in the patient's bladder. Patient continues to report having a swollen belly. Sid VICTOR was paged at this time regarding the finding; she stated that he can be straight-cathed. Original Note: At this time, the patient verbalized having a swollen bladder and has expressed having difficulty with the urge to urinate. Patient has a history of BPH and has had little urine output (documented accordingly) with hesitancy thus far this shift. Upon palpation, the patient's lower abdomen was soft to the touch, but the patient did report having tenderness in the area. Bladder scanner will be obtained.
[2024-04-21 04:00] VITALS: BP 115/53; PULSE 86; RESP 16; TEMP 36.5; O2SAT 98; BMI 32.9
--- NOTE | 2024-04-21 05:34 | PC.NURSE ---
Addendum entered by Lourdes Nathan RN 04/21/24 06:34: Patient is using the incentive spirometer efficiently. Original Note: Patient is alert and oriented; however, patient's speech is mumbled but coherent and appropriate. Patient reports having difficulty with hearing. Patient has had off-and-on periods of wakefulness and resting throughout the night. Patient reported that at the [facility], listening to music on his radio tends to help him fall asleep; patient's TV was turned on to a music channel. Patient stated that he was able to sleep once listening to the music. Upon auscultation, the patient's lungs were clear, S1/S2 heart sounds could be heard, and bowel sounds were active. Patient's abdomen appeared to be large, round, but soft. Patient had a right BKA procedure during the previous shift; dressing remains intact and in place. Post-op vitals were completed this shift. He has complained of significant pain in his right leg this shift, of which has been treated with [place] per JUL. His right leg was also elevated to aid in additional relief of pain. He stated that warm blanket applications helped with comfort. Vital signs have remained stable this shift. Patient was assisted by staff members into a wheelchair earlier this shift to use the toilet per request. Patient was able to urinate very little at the time and had a bowel movement (took place around 21:00). He was given a full bath with a bed linen change afterwards. Patient also requested to be assisted to the side of the bed to attempt to urinate (took place around 02:00); patient found this difficult. Patient was assisted back into bed comfortable and laid supine to attempt urinating again; only 100 mL of urine was measured. This morning, patient started to report swelling and tenderness in his lower abdomen along with significant difficulty with urinating (see prior note). Patient was bladder scanned and straight cathed as appropriately. Patient does not have any further bladder distention reports at this time. He has had an adequate intake of fluids, including a few cans of Diet Pepsi. Patient has received his scheduled medications per JUL and currently has lactated ringers infusing at 75 mL/hr. At this time, the patient is resting supine in bed. He does not have any further complaints. No acute changes noted thus far. Call light within reach. Patient's fingerstick glucose was taken this morning at 05:29; it was 149.
[2024-04-21 05:36] LABS: POC Glucose,Bedside 149 (70-110)
[2024-04-21 06:41] LABS: Anion Gap 13.9 mEq/L (5-15); Blood Urea Nitrogen 8 mg/dl (9-20); Calcium 7.8 mg/dl (8.4-10.2); Carbon Dioxide 23 mmol/L (22.0-30.0); Chloride 98 mmol/L (98-107); Creatinine Clearance Estimated 96 mL/min (50-200); Estimated Glomerular Filt Rate 97 ml/min (>60); GFR (African American) 117 ML/MIN (>60); Glucose 140 mg/dl (74-100); Potassium 3.9 mmoL/L (3.5-5.1); Sodium 131 mmol/L (136-145)
[2024-04-21 07:25] LABS: Basophils % 0.2 % (0.1-2.0); Eosinophils % 0.1 % (0.1-12.0); Hematocrit 26.1 % (42.0-52.0); Hemoglobin 8.9 g/dL (14.1-18.0); Lymphocytes # 1.4 K/mm3 (0.7-4.5); Lymphocytes % 11.1 % (10-50); Mean Corpuscular Hemoglobin 31.8 pg (27.0-31.2); Mean Corpuscular Volume 93.7 fl (80-94); Monocytes % 7.9 % (1.7-9.3); Neutrophils # 10.2 K/mm3 (1.8-7.8); Neutrophils % 80.7 % (37.0-80.0); Platelet Count 291 K/mm3 (142-424); Red Blood Count 2.78 M/mm3 (4.60-6.20); Red Cell Distribution Width 18.3 % (11.5-17.5); White Blood Count 12.7 K/mm3 (4.8-10.8)
--- NOTE | 2024-04-21 07:37 | P.PNANES_ITS ---
[facility] Anesthesia Record Part II Anesthesia Record Part II Discharge Time: 15:15 Destination: Medical Surgical Department PACU nurse assessment reviewed?: Yes Patient Condition:: Good Anesthesia Complications:: None Swallowing reflex intact?: Yes Airway Patency: Patent Cyanosis?: No Blood Pressure: 110/62 SaO2: 97 Respiratory Rate: 18 Pulse Rate: 66 Temperature: 97.2 F Mental Status: Alert & Oriented Pain level:: 0 Nausea and/or vomitting:: None Intake, IV Amount: 0 Hydration: Adequate
[2024-04-21 07:38] VITALS: BP 110/62; PULSE 66; RESP 18; TEMP 36.2; O2SAT 97
[2024-04-21 07:39] VITALS: BP 126/64; PULSE 81; RESP 20; TEMP 36.8; O2SAT 99
--- OUTSIDE RECORDS SUMMARY | 2024-04-21 07:39 | XMS_ITS | Encounter Summary ---
Author Organization Healthcare Address [address] [id number] Care Team Providers Care Laboratory Chief Name Role Phone Junior Alas MD Primary Care Provider [phone] Encounter Details Date Type Department Care Team (Late st Contact Info) Description 11/30/2023 Orders Only External Location [address] [place] [address] Heri Gómez MD [address] [place] [address] Social History Tobacco Use Types Packs/Day Years Used Date Smoking Tobacco: Never Smokeless Tobacco: Never Alcohol Use Standard Drinks/Week Comments Not Currently 0 (1 standard drink = 0.6 oz pur e alcohol) CAGE ASSESSMENT Answer Date Recorded Cage unable to access Not on file 06/14/2022 Cage max number of drinks Not on file 2022 Cage Beverages a week Not on file 06/14/2022 Have you ever felt you should CUT down on your d rinking? 0 06/14/2022 Have you been ANNOYED by people criticizing your drinking? 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 0 06/14/2022 Cage Overall score Not on file 06/14/2022 Sex and Gender Information Value Date Recorded Sex Assigned at Not on file Legal Sex Male 7:38 PM EDT Gender Identity Not on file Sexual Orientation Not on file documented as of this encounter Plan of Treatment Not on file documented as of this encounter Procedures Procedure Name Priority Date/Time Associated Diagnosis Comments CT OUTSIDE IMAGES 11/30/2023 3:59 PM EDT documented in this encounter Results * CT OUTSIDE IMAGES (11/30/2023 3:59 PM EDT) Anatomical Region Laterality Modality Computed Tomogra phy 11/30/2023 3:59 PM EDT us Heri Gómez MD IMG CT PROCEDURES Final Resu lt documented in this encounter Visit Diagnoses Not on filedocumented in this encounter Care Teams Laboratory Chief Relationship Specialty Start Date End Date Junior Alas MD [address] [place] [id number] PCP - General 10/07/20 documented as of this encounter
--- OUTSIDE RECORDS SUMMARY | 2024-04-21 07:39 | XMS_ITS | Referral Summary ---
Author Organization [facility] Address [address] [place] [address] Phone Care Team Providers Care Necktie Stitcher Name Role Phone Unavailable Primary Care Provider Unavailabl e Allergies No known active allergies Medications * This document contains information received from the source organization and may not represent a complete record from that organization. No known medications Active Problems Problem Noted Date Diagnosed Date Adjustment disorder with mixed anxiety and depre ssed mood 02/28/2021 Recurrent depressive disorder, current episode m ild 08/30/2018 Medication monitoring encounter 08/30/2018 Primary insomnia 08/30/2018 Social History Tobacco Use Types Packs/Day Years Used Date Smoking Tobacco: Every Day Cigarettes Tobacco Cessation:Ready to Q uit: Not Asked; Counseling Given: Not Answered Alcohol Use Standard Drinks/Week Comments Not Currently 0 (1 standard drink = 0.6 oz pur e alcohol) Sex and Gender Information Value Date Recorded Sex Assigned at Not on file Legal Sex Male 2:04 PM EDT Gender Identity Not on file Sexual Orientation Not on file Plan of Treatment [place] [address] MEDICAID [place] [facility]
--- OUTSIDE RECORDS SUMMARY | 2024-04-21 07:39 | XMS_ITS | Encounter Summary ---
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
--- OUTSIDE RECORDS SUMMARY | 2024-04-21 07:39 | XMS_ITS | Clinical Summary ---
Author Organization [facility] Address [address] [place] [address] Phone Care Team Providers Care Healthcare Social Worker Name Role Phone Unavailable Primary Care Provider [...] Medication monitoring encounter 08/30/2018 Primary insomnia 08/30/2018 Medical History Medical History Date Comments Asthma [place] (myocardial infarction) (HCC) CAD (coronary artery disease) Heartburn Arthritis Depression Social History Tobacco Use Types Packs/Day Years [...] on file Sexual Orientation Not on file Obstetrics History Plan of Treatment Health Maintenance Due Date Last Done Comments Wellness Exam Medicare 01/28/1960 Pneumococcal Vaccine 65+ (1 of 2 - PCV) 01/28/1964 Hepatitis C Screening 01/28/1976 DTaP/TDaP/Td (1 - Tdap) 1977 Cologuard 2003 Colon Cancer Screening 2003 Colonoscopy 2003 FIT 2003 Sigmoidoscopy 2003 Virtual Colonography 2003 Zoster (1 of 2) 01/28/2008 AAA Screening 2023 COVID-19 Vaccine ( - 2023-2 5 season) 2024 Influenza Vaccine (#1) 2024 Hepatitis B Vaccine Aged Out No longe r eligible based on patient's age to complete this topic Insurance [place] [address] MEDICAID [facility]
--- OUTSIDE RECORDS SUMMARY | 2024-04-21 07:39 | XMS_ITS | Clinical Summary ---
Author Organization [facility] Address [address] [place] [address] Care Team Providers Care Manager Spa Name Role Phone Junior Alas MD Primary Care Provider [phone] Allergies Active Allergy Reactions Criticality Noted Date Comments Influenza Virus Vaccine Itching Medium 06/12/2022 Morphine Itching Medium 06/12/2022 Medications atorvastatin (Lipitor) 80 MG tablet Take 80 mg by mouth 1 (one) time each day. Active Fluticasone Furoate-Vilante rol 100-25 MCG/ACT aerosol powder Inhale 1 puff 1 (one) time each day. Active citalopram (CeleXA) 20 MG tablet Take 20 mg by mouth 1 (one) time each day. Active carvedilol (Coreg) 12.5 MG tablet Take 12.5 mg by mouth 2 (two) times a day with meals. Active insulin aspart protamine-insul in aspart (NovoLOG Mix 70-30) (70-30) 100 UNIT/ML injection vial Inject under the skin 2 (two) times a day with meals. 30 units with breakfast and 40 units with supper Active pantoprazole (Protonix) 40 MG EC tablet Take 40 mg by mouth 1 (one) time each day before breakfast. Do not crush, chew, or split. Active ranolazine (Ranexa) 1000 MG 12 hr tablet Take 1 tablet by mouth 2 (two) times a day. Active albuterol 108 (90 Base) MCG/ACT inhaler Inhale 2 puffs every 4 (four) hours if needed for wheezing. Active tamsulosin (Flomax) 0.4 MG 24 hr capsule Take 1 capsule (0.4 mg total) by mouth 1 (one) time each day with dinner. 30 capsule 3 Active methocarbamol (Robaxin) 500 MG tablet Take 1 tablet (500 mg total) by mouth 4 (four) times a day for 10 days. 40 tablet 3 Active melatonin 3 MG tablet Take 1 tablet (3 mg total) by mouth every night. 0 3 Active acetaminophen (Tylenol) 500 MG tablet Take 1 tablet (500 mg total) by mouth every 6 (six) hours. 100 tablet 3 Active Active Problems Problem Noted Date Diagnosed Date Hemangioma 09/03/2022 Urinary retention 07/30/2022 Overview (07/30/2022): I&O overnight 07/30; had 2L 07/30: Doherty placed; trial removal in 3-5 days flomax started Multiple falls 07/28/2022 Overview (07/31/2022): Over past several weeks Admit SGT Tertiary on 07/28 Multilevel degenerative disc disease 07/28/2022 Overview (07/31/2022): Cervical spine Noted on imaging Follow up with PCP as needed Hyponatremia 07/28/2022 Overview (07/31/2022): Serum osmol 279, Urine osmol 567, Urine sodium 66 Continue NS; holding HCTZ Sodium improving; stop IVF (07/30) Hypoalbuminemia 07/28/2022 Overview (07/31/2022): Resume diet Supplemental nutrition as needed Impaired mobility 07/28/2022 Overview (07/31/2022): Baseline walker Coagulopathy 07/28/2022 Overview (07/31/2022): On Brilinta at home held for 2 weeks Can resume 08/11 Subdural hematoma without coma 07/27/2022 Overview (07/31/2022): NSGY consulted [facility] reviewed; appears meningioma present can follow up with Dr. Khan in 4 weeeks with MRI w/w/o contrast hold Brilinta for 2 weeks (resume 08/11) Diabetes mellitus type 2, insulin dependent 05/27 Overview (07/31/2022): Monitor FSBS Sliding scale Class 2 severe obesity due t o excess calories with serious comorbidity and body mass index (BMI) of 36.0 to 36.9 in adult 06/13/2022 Overview (07/31/2022): Can complicate mobility Coronary artery disease invo lving [place] coronary artery of [place] heart without angina pectoris 06/13/2022 Overview (07/31/2022): S/p stents Home statin resumed HTN (hypertension) 06/13/2022 Overview (07/31/2022): Home coreg resumed Home dilt, hydrochlorothiazide and spironolactone held Gastroesophageal reflux disease without esophagi tis 06/13/2022 Overview (07/31/2022): protonix resumed Dyslipidemia 06/13/2022 Overview (07/31/2022): Home statin resumed Mood disorder 06/13/2022 Overview (07/31/2022): Home celexa resumed home elavil held Mild asthma without complication 06/13/2022 Overview (07/31/2022): Nebs PRN Hypomagnesemia 06/13/2022 Overview (07/31/2022): Monitor/replete PRN Chronic kidney disease Overview (07/31/2022): Monitor Renal dose medication Avoid nephrotoxins Obesity (BMI 30-39.9) Overview (07/29/2022): Complicates mobilty Resolved Problems Problem Noted Date Diagnosed Date Resolved Date Chest pain 07/27/2022 07/31/2022 Overview (07/28/2022): EKG NSR; age indeterminate infarct Trops - no significant delta CP resolved Finger infection 06/13/2022 07/28/2022 Hypoglycemia 06/13/2022 07/28/2022 Felon of finger 06/13/2022 07/28/2022 Normocytic anemia 06/13/2022 07/28/2022 Immunizations Name Administration Dates Next Due Hep A, Adult 04/11/2018 Influenza, injectable, quadrivalent, preservativ e free 03/28/2020 TD (adult), 2 Lf tetanus tox oid, preservative free, adsorbed 11/14/1998 Family History Medical History Relation Name Comments Diabetes Mother Relation Name Status Comments Mother Social History Tobacco Use Types Packs/Day Years Used Date Smoking Tobacco: Never Smokeless Tobacco: Never Tobacco Cessation:Counseling Given: Not Answered Alcohol Use Standard Drinks/Week [...] drink first t kaykay in the 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 0 06/14/2022 Cage Overall score Not on file 06/14/2022 Sex and Gender Information Value Date Recorded Sex Assigned at Not on file Legal Sex Male 7:38 PM EDT Gender Identity Not on file Sexual Orientation Not on file Last Filed Vital Signs Vital Sign Reading Time Taken Comments Blood Pressure 121/75 08/02/2022 7:35 AM EST Pulse 67 08/02/2022 7:35 AM EST Temperature 37.1 ??C (98.8 ??F) 08/02/2022 7:35 AM ES T Respiratory Rate 16 08/02/2022 7:35 AM EST Oxygen Saturation 99% 08/02/2022 7:35 AM EST Inhaled Oxygen Concentration - - Weight 96.6 kg (212 lb 15.4 oz) 08/02/2022 5:36 AM EST Height 167.6 cm (5' 6 ) 07/30/2022 12:3 7 PM EST Body Mass Index 34.37 07/30/2022 12:37 PM EST Plan of Treatment Health Maintenance Due Date Last Done Comments [facility]-Depression Screening 1960 [facility]-Medicare Annual Wellness (AWV) 1960 [facility]-Infant/Child/Adol SDOH Screenings 1960 [facility]-Obesity Intervention 01/28/1964 [facility]-Pneumococcal Vaccine: 65+ Years (1 of 2 - PCV) 01/28/1964 Diabetes: Dental Exam 01/28/1968 [facility]- SDOH Screenings 01/28/1976 [facility]-Adult SDOH Screenings 01/28/1976 [facility]-Zoster Vaccines (1 of 2) 1977 [facility]-DTaP,Tdap,and Td Vaccines (1 - Tdap) 11/15/1998 11/14/1998 CT Colonography 2003 Colonoscopy 2003 FIT-DNA 2003 FIT 2003 FOBT 2003 Sigmoidoscopy 2003 [facility]-Colorectal Cancer Screening 2003 [facility]-RSV Vaccine: 60+ Years or (1 - Risk 60-74 years 1-dose series) 2018 [facility]-Diabetes: Hemoglobin A1C 12/11/2022, 05/14/2016, 01/11/2016, Additional history exists [id number] Vaccine ( season) 2024 03/27/2021, 06/25/2020, 06/04/2020 [facility]-Influenza Vaccine (#1) 2024 03/28/2020 [facility]-Hepatitis A Vaccines Aged Out 04/11/2018 No longer eligible based on patient's age to complete this topic [facility]-Hepatitis C Screening Completed 07/27/2022 [facility]-HIB Vaccines Aged Out No longer e ligible based on patient's age to complete this topic [facility]-HPV Vaccines Aged Out No longer e ligible based on patient's age to complete this topic [facility]-IPV Vaccines Aged Out No longer e ligible based on patient's age to complete this topic [facility]-Rotavirus Vaccines Aged Out No lo nger eligible based on patient's age to complete this topic Procedures Procedure Name Priority Date/Time Associated Diagnosis Comments HEPATITIS C ANTIBODY - ED W/REFLEX TO HCV QUANT PCR STAT 07/27/2022 3:50 PM EST HEMOGLOBIN A1C Routine 06/13/2022 5:18 AM EST from Last 3 Months or Most Recently Relevant to Health Maintenance Results * Hepatitis C Antibody - ED (07/27/2022 3:50 PM EST) Hepatitis C Antibody Negative Negative 07/27/2022 5:44 PM EST [facility] Blood Venous blood specimen / Unknown Venipuncture / Unknown 07/27/2022 3:50 PM EST 07/27/2022 5:04 PM EST Carmelo Dunn MD LAB BLOOD ORDERABLES Final Result [facility] [address] [place] [address] * (ABNORMAL) Hemoglobin A1c (06/13/2022 5:18 AM EST) Hemoglobin A1c 6.2(H) <5.7 % 06/13/2022 10:13 AM EST [facility] Blood Venous blood specimen / Unknown Venipuncture / Unknown 06/13/2022 5:18 AM EST 06/13/2022 5:21 AM EST Narrative [facility] - 06/13/2022 10:13 AM EST HA1C Interpretive Data: Diagnosis of Diabetes: Diabetic > or = 6.5% Pre-diabetic 5.7 to 6.4% Non-diabetic < or = 5.6% Glycemic Targets for Type I and Type II Diabetics: Non- Adults <7.0% Adults <6.0% Children and Adolescents <7.5% Source: ??[place] [employer]. Standards of medical care in diabetes,2017. Diabetes Care.2017:40 (suppl 1):S1-S135. HbA1c assay performed by an ion-exchange chromatography method that is certified traceable to the DCCT. Blanca Murdock [facility] BLOOD ORDERABLES Final Result [facility] [address] [place] [address] from Last 3 Months or Most Recently Relevant to Health Maintenance Insurance MEDICARE Advance Directives * Full Code (Latest Code Status on File) Date Activated Date Inactivated Comments 06/13/2022 12:41 AM 06/18/2022 7:55 PM Question Answer Comments Patient has decision-making capacity? Yes Care Teams Manager Spa Relationship Specialty Start Date End Date Junior Alas MD [address] [place] [id number] PCP - General 10/07/20
--- OUTSIDE RECORDS SUMMARY | 2024-04-21 07:39 | XMS_ITS | Encounter Summary ---
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
--- OUTSIDE RECORDS SUMMARY | 2024-04-21 07:39 | XMS_ITS | Encounter Summary ---
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
--- NOTE | 2024-04-21 07:40 | HMH.PHAINT1 ---
Pharmacy Intervention Comments: home medications verified via outside facility
--- OUTSIDE RECORDS SUMMARY | 2024-04-21 07:40 | XMS_ITS | Encounter Summary ---
Author Organization Healthcare Address [address] [id number] Care Team Providers Care Independent Agent Music Education Name Role Phone Junior Alas MD Primary Care Provider [phone] Reason for Visit * Reason Comments Fall * Auth/Cert (Routine) Specialty Diagnoses / Procedures Referred By Contimtiaz t Referred To Contact Diagnoses Subdural hematoma ([facility] Trauma Alert: multile falls, eipdural/subdural hemorrhage Edwin Zapata K, DO [address] [facility] [address] [place] [address] Phone: tel: fax: P[facility] A Inpatient [address] [place] [address] Phone: tel: Referral ID Status Reason Start Date Expiration Date Visits Re quested Visits Authorized [id number] 1 1 Encounter Details Date Type Department Care Team (Late st Contact Info) Description 07/27/2022 1:08 PM EST - 08/02/2022 10:27 AM [facility] Hospital Encounter P[facility] A Inpatient [address] [place] [address] Carmelo Dunn MD [address] [place] [address] Jani Gaspar MD [address] [place] [address] Edwin Zapata DO [address] [place] [address] Doug Torres MD [address] [place] [address] Son Rojas MD [address] [facility] [address] [place] [address] Subdural hematoma without coma, without loss of consciousness, initial encounter ([facility]) (Primary Dx) Discharge Disposition: Rehab Facility Social History Tobacco Use Types Packs/Day Years [...] drink first t kaykay in the morning ([employer]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 0 06/14/2022 Cage Overall score Not on file 06/14/2022 Sex and Gender Information Value Date Recorded Sex Assigned at Not on file Legal Sex Male 7:38 PM EDT Gender Identity Not on file Sexual Orientation Not on file COVID-19 Exposure Response Date Recorded In the last 10 days, have yo u been in contact with someone who was confirmed or suspected to have Coronavirus/COVID-19? No / Unsure 07/27/2022 1:56 PM EST documented as of this encounter Last Filed Vital Signs Vital Sign Reading [...] Mass Index 34.37 07/30/2022 12:37 PM EST documented in this encounter Discharge Instructions * Discharge Instructions* Amanda Day, CERTIFIED CYTOTECHNOLOGIST, DNP - 08/01/2022 11:17 AM EST Questions or Concerns and Appointments If there are questions or concerns after discharge from the hospital, please call [phone] and ask for Blue Surgery Nurse. Working hours are Saturday - Saturday 8:00 AM to 4:00 PM. After hours, weekends and holidays please call [phone] and ask for the resident power generation plant operator for [facility]. For appointments please call [phone]. Follow up: Primary care provider in 1-2 weeks post hospitalization Neurosurgery: Dr. Khan in 4 weeks with MRI w/w/o contrast Urinary retention Whitfield removal and void trial on 08/03 Incidental Findings Incidental finding on imaging Follow-up with PCP for surveillance Medication -Do NOT resume home brilinta or asa for 2 weeks. May resumed on 08/11 -Patients hydrochlorothiazide, spironolactone, lisinopril, imdur were held while in hospital due tonormotension. Discuss with PCP prior to resuming -Patients Elavil was held while inpatient Nutrition: - You may resume your normal diet as tolerated, focusing on liquids to keep yourself hydrated. Activity: - No strenuous activity for the next 4 weeks - No driving Potential Issues: - It is normal to have some pain and soreness, especially around the incisions - A small amount of clear drainage from the incision may be expected, call the office if the drainage becomes bloody, purulent (pus), or foul-smelling - Call the office if you start to have increased redness, drainage, swelling, or increased pain around your incision - Call the office if you have a fever greater than 101 F - Call the office if you have severe abdominal discomfort, nausea and vomiting, or feeling unwell * Attachments The following attachments cannot be sent through Care Everywhere. * What Is a Subdural Hematoma? (Guamanian) * Acetaminophen Oral Tablet (Guamanian) * Melatonin Oral Tablet 0.3 mg (Guamanian) * Methocarbamol Oral Tablet (Guamanian) * Flomax Oral Capsule 0.4 mg (Guamanian) documented in this encounter Medications at Time of Discharge acetaminophen (Tylenol) 500 MG tablet Take 1 tablet (500 mg total) by mouth every 6 (six) hours. 100 tablet 08/01/2022 albuterol 108 (90 Base) MCG/ACT inhaler Inhale 2 puffs every 4 (four) hours if needed for wheezing. atorvastatin (Lipitor) 80 MG tablet Take 80 mg by mouth 1 (one) time each day. carvedilol (Coreg) 12.5 MG tablet Take 12.5 mg by mouth 2 (two) times a day with meals. citalopram (CeleXA) 20 MG tablet Take 20 mg by mouth 1 (one) time each day. Fluticasone Furoate-Vilanter ol 100-25 MCG/ACT aerosol powder Inhale 1 puff 1 (one) time each day. insulin aspart protamine-insuli n aspart (NovoLOG Mix 70-30) (70-30) 100 UNIT/ML injection vial Inject under the skin 2 (two) times a day with meals. 30 units with breakfast and 40 units with supper melatonin 3 MG tablet Take 1 tablet (3 mg total) by mouth every night. 0 08/01/2022 methocarbamol (Robaxin) 500 MG tablet Take 1 tablet (500 mg total) by mouth 4 (four) times a day for 10 days. 40 tablet 08/01/2022 pantoprazole (Protonix) 40 MG EC tablet Take 40 mg by mouth 1 (one) time each day before breakfast. Do not crush, chew, or split. ranolazine (Ranexa) 1000 MG 12 hr tablet Take 1 tablet by mouth 2 (two) times a day. tamsulosin (Flomax) 0.4 MG 24 hr capsule Take 1 capsule (0.4 mg total) by mouth 1 (one) time each day with dinner. 30 capsule 08/01/2022 documented as of this encounter Miscellaneous Notes * Discharge Summary - Amanda Day, CERTIFIED CYTOTECHNOLOGIST, DNP - 08/02/2022 6:26 AM EST Hospitalization Admit Date/Time: 07/27/2022 1:08 PM Admitting Attending: Edwin Zapata Discharge Date: 08/02/2022 Discharge Attending Physician: Son Rojas Md PCP name and Address: Junior Alas MD [address] [facility] [address] [place] [address] Referring provider name and address: Armando Burgess MD [address] [place] [address] Chief Concern, Brief History of Present Illness, and Hospital Course Mayo Jain is a 62 year old male with PMH of CAD w/stents, DM, asthma, GERD, mood disorder, HTN, and HLD. Patient has had multiple falls over the past several weeks. He fell again on 07/27 resulting in SDH. Physical therapy and occupational therapy evaluated the patient during hospitalization and recommend subacute rehab. At the time of discharge the patient was hemodynamically stable, tolerating PO, voiding spontaneously, normal bowel function, mobilizing appropriately, with their pain controlled with PO medication. At this time, the patient has obtained the maximum benefit from the present hospital stay, and so will be discharged to Medication -Do NOT resume home brilinta or asa for 2 weeks. May resumed on 08/11 -Patients hydrochlorothiazide, spironolactone, lisinopril, imdur were held while in hospital due tonormotension. Discuss with PCP prior to resuming -Patients Elavil was held while inpatient Urinary retention Whitfield removal and void trial on 08/03 DVT prophylaxis: hold Brilinta for 2 weeks (through 08/11) Procedures: None Mobility Restrictions: Activity as tolerated Follow up: Primary care provider in 1-2 weeks post hospitalization Neurosurgery: Dr. Khan in 4 weeeks with MRI w/w/o contrast Questions or Concerns and Appointments If there are questions or concerns after discharge from the hospital, please call [phone] and ask for Blue Surgery Nurse. Working hours are Saturday - Saturday 8:00 AM to 4:00 PM. After hours, weekends and holidays please call [phone] and ask for the resident power generation plant operator for Blue [facility]. For appointments please call [phone]. Medication requests should be made between the hours of 9:00 AM to 3:00 PM Saturday thru Saturday. Please note that based upon recent changes to [place] law related to prescribing opioid pain medications, our providers will not provide refills on controlled medications after your hospital discharge following a major surgery or trauma. [place] 218[place], [place] 201 [place]:260. Surgeries and Procedures Medication List .. acetaminophen 500 MG tablet Commonly known as: Tylenol Take 1 tablet (500 mg total) by mouth every 6 (six) hours. albuterol 108 (90 Base) MCG/ACT inhaler Inhale 2 puffs every 4 (four) hours if needed for wheezing. atorvastatin 80 MG tablet Commonly known as: Lipitor Take 80 mg by mouth 1 (one) time each day. carvedilol 12.5 MG tablet Commonly known as: Coreg Take 12.5 mg by mouth 2 (two) times a day with meals. citalopram 20 MG tablet Commonly known as: CeleXA Take 20 mg by mouth 1 (one) time each day. Fluticasone Furoate-Vilanterol 100-25 MCG/ACT aerosol powder Inhale 1 puff 1 (one) time each day. insulin aspart protamine-insulin aspart (70-30) 100 UNIT/ML injection vial Commonly known as: NovoLOG Mix 70-30 Inject under the skin 2 (two) times a day with meals. 30 units with breakfast and 40 units with supper melatonin 3 MG tablet Take 1 tablet (3 mg total) by mouth every night. methocarbamol 500 MG tablet Commonly known as: Robaxin Take 1 tablet (500 mg total) by mouth 4 (four) times a day for 10 days. pantoprazole 40 MG EC tablet Commonly known as: Protonix Take 40 mg by mouth 1 (one) time each day before breakfast. Do not crush, chew, or split. ranolazine 1000 MG 12 hr tablet Commonly known as: Ranexa Take 1 tablet by mouth 2 (two) times a day. tamsulosin 0.4 MG 24 hr capsule Commonly known as: Flomax Take 1 capsule (0.4 mg total) by mouth 1 (one) time each day with dinner. Where to Get Your Medications Information about where to get these medications is not yet available Ask your nurse or doctor about these medications acetaminophen 500 MG tablet melatonin 3 MG tablet methocarbamol 500 MG tablet tamsulosin 0.4 MG 24 hr capsule Discharge Diagnosis Medical Problems Active and Resolved Hospital Problems Hospital Hypomagnesemia Overview Addendum 07/31/2022 11:41 AM by Amanda Day APRN, DNP Monitor/replete PRN * (Principal) Subdural hematoma without coma Overview Addendum 07/31/2022 11:42 AM by Amanda Day APRN, DNP NSGY consulted CTH reviewed; appears meningioma present can follow up with Dr. Khan in 4 weeeks with MRI w/w/o contrast hold Brilinta for 2 weeks (resume 08/11) Multiple falls Overview Addendum 07/31/2022 11:42 AM by Amanda Day APRN, DNP Over past several weeks Admit SGT Tertiary on 07/28 Multilevel degenerative disc disease Overview Addendum 07/31/2022 11:43 AM by Amanda Day APRN, DNP Cervical spine Noted on imaging Follow up with PCP as needed Hyponatremia Overview Addendum 07/31/2022 11:44 AM by Amanda Day APRN, DNP Serum osmol 279, Urine osmol 567, Urine sodium 66 Continue NS; holding HCTZ Sodium improving; stop IVF (07/30) Hypoalbuminemia Overview Addendum 07/31/2022 11:44 AM by Amanda Day APRN, DNP Resume diet Supplemental nutrition as needed Impaired mobility Overview Addendum 07/31/2022 11:44 AM by Amanda Day APRN, DNP Baseline walker Coagulopathy (CMS/HCC) Overview Addendum 07/31/2022 11:44 AM by Amanda Day APRN, DNP On Brilinta at home held for 2 weeks Can resume 08/11 Chronic kidney disease Overview Addendum 07/31/2022 11:44 AM by Amanda Day APRN, DNP Monitor Renal dose medication Avoid nephrotoxins Obesity (BMI 30-39.9) Overview Signed 07/29/2022 1:38 PM by Adrianna Dyer APRN, DNP Complicates mobilty Urinary retention Overview Addendum 07/30/2022 12:11 PM by Adrianna Dyer APRN, DNP I&O overnight 07/30; had 2L 07/30: Whitfield placed; trial removal in 3-5 days flomax started RESOLVED: Chest pain Overview Addendum 07/28/2022 4:10 PM by Adrianna Dyer APRN, DNP EKG NSR; age indeterminate infarct Trops - no significant delta CP resolved Outpatient Follow-Up Future Appointments Date Time Provider Department Center 08/03/2022 2:10 PM ASHLEIGH Weiss [facility] [place] Test Results Pending At Discharge Pertinent Physical Exam At Time of Discharge Physical Exam Vitals and nursing note reviewed. Constitutional: Appearance: Normal appearance. He is obese. HENT: Head: Normocephalic and atraumatic. Mouth/Throat: Mouth: Mucous membranes are moist. Pharynx: Oropharynx is clear. Eyes: General: Right eye: No discharge. Left eye: No discharge. Conjunctiva/sclera: Conjunctivae normal. Pupils: Pupils are equal, round, and reactive to light. Cardiovascular: Rate and Rhythm: Normal rate. Pulses: Normal pulses. Pulmonary: Effort: Pulmonary effort is normal. Abdominal: General: There is no distension. Palpations: There is no mass. Tenderness: There is no abdominal tenderness. There is no guarding or rebound. Hernia: No hernia is present. Genitourinary: Comments: Whitfield catheter Musculoskeletal: General: Normal range of motion. Cervical back: Normal range of motion. Skin: General: Skin is warm and dry. Neurological: General: No focal deficit present. Mental Status: He is alert and oriented to person, place, and time. Psychiatric: Mood and Affect: Mood normal. Behavior: Behavior normal. Discharge Disposition/Condition Disposition: Rehab facility (specify) Condition: Stable (s/sx potential problems absent or manageable) I spent >30 minutes of patient care and instruction time in preparation for this discharge. Cosigned by Son Rojas MD at 08/03/2022 8:02 AM EST * Care Plan - Mckenzie Rios RN - 08/01/2022 10:19 PM EST Problem: Adult Inpatient Plan of Care Goal: Plan of Care Review Outcome: Ongoing, Progressing Flowsheets (Taken 07/31/2022951 by Candice Raymundo RN) Progress: improving Goal: Patient-Specific Goal (Individualized) Outcome: Ongoing, Progressing Flowsheets (Taken 08/01/20222009) Patient/Family-Specific Goals (Include Timeframe): patient will ambulate to restroom Individualized Care Needs: mobility and safety Anxieties, Fears or Concerns: patient aware of discharging tomorrow Goal: Absence of Hospital-Acquired Illness or Injury Outcome: Ongoing, Progressing Goal: Optimal Comfort and Wellbeing Outcome: Ongoing, Progressing Goal: Readiness for Transition of Care Outcome: Ongoing, Progressing Problem: Cognitive Impairment (Functional Deficit) Goal: Optimal Functional [place] Outcome: Ongoing, Progressing * Progress Notes - Deidra Shukla RN - 08/01/2022 12:49 PM EST Case Management Discharge Note Mayo Jain 62 y.o. male CSN: [id number] Admission: 07/27/2022 1:08 PM Primary Problem: Subdural hematoma without coma Primary Stone Dresser: Self Assistance Available at Discharge: Facility Housing Circumstances-Z Codes: [facility] Discharge Facility/Level of Care Needs: Subacute Rehab Follow-up: Primary care provider (PCP) Junior Alas MD [address] [place], [place] [id number] Discharge Transportation: [facility] at 0900 on , 08/02/22. Follow Up Transport: facility Additional Comments: Mr. Jain will return to his snf post rehab. He plans to look for a different snf in the near future. He understands that is not part of his hospital/subacute rehab plan. He will [facility]with Jessica at [facility] re[facility] to locate a new home. Report #[phone] DC summary fax FAX [phone] Please fax DC summary to Rogelio Rueda attn [place] [phone] No covid test required. Liaison at [facility] [address] [phone] Deidra Shukla, RN * Progress Notes - Annel Bowman Nando - 08/01/2022 12:25 PM EST Occupational Therapy Treatment Patient Name: Mayo Jain Today's Date: 08/01/2022 OT Discharge Recommendations: Subacute rehab Equipment Recommended: Defer to facility Subjective Pt agreeable to session. Participants in Care Family/Caregiver Present: No Hospital Internship: Not Applicable Presentation Oxygen Therapy: None (Room air) Lines and Tubes: Intravenous access, Urinary catheter Pre-Session: Sitting in chair, Lines intact, Chair alarm Post-Session: Sitting in chair, Lines intact, Chair alarm, Call light in reach Post-Session Comments: pt semi-reclined with tray table and lunch tray set up and accessible RN michelle'jacquie treatment session. Pt positioned for comfort and pressure relief at end of session. Precautions Medical Precautions: Fall precautions Objective Pain Pt reported pain in L hand (finger) and L foot, did not rate. Pt positioned for comfort at end of session. Delirium Screening Sharif Agitation Sedation Scale (RASS): Alert and calm Confusion Assessment Method-ICU (CAM-ICU/PCAM-ICU) Feature 3: Altered Level of Consciousness: Negative Cognition Cognition Cognitive Skill Development Intervention: pt appears to be significantly hard of hearing, denies having hearing aides Orientation Level: Oriented X4 Single Step Commands: 75% of the time, With repetition, With increased time (increased volume) Method of Communication: Verbal Self-Care Interventions Self Care/Home Management (ADLs) Time Entry: 25 OT provided verbal cues, modeling and tactile cues to promote dressing pt identified weaker affected extremity first. OT provided assistance with managing whitfield catheter through pant leg. Verbal cuesfor hand placement and balance awareness during transition to stance phase provided. Pt required verbal cues for initiation and termination of task of calvin brushing, however completed physical component of task independently. During grooming and feeding tasks, pt required set up assistance that included opening packages and containers and cutting up food. OT provided verbal and modeling cues forpt to use left hand as stabilizer and right hand to manipulate items to decrease pain, however no fo llow through noted. Grooming Grooming Level of Assistance: Setup, SBA, Minimum assistance, Moderate verbal cues Grooming Where Assessed: Sitting sinkside Grooming Interventions: oral care, calvin brushing Lower Extremity Dressing Pants Level of Assistance: Setup, Moderate verbal cues, Moderate assistance LE Dressing Where Assessed: Chair level LE Dressing Interventions: to don pants Transfers Transfer Exam: Stand to Sit Level of [place]: Contact guard Physical/Nonphysical Assist: Verbal Cues, Set-up required, Additional assist utilized for safety Assistive Device: Walker, rolling Assessment Pt with limited tolerance and endurance for upright activity due to fatigue and report of pain in left foot. Pt's cognition and possible hearing impairment further impair pt independence, with pt with improved response to modeling cues vs verbal cues. OT Recommendations Discharge Destination: Subacute rehab Discharge Equipment: Defer to facility Plan Pt is pending discharge tomorrow per case management. Goals OT GOAL DETAILS Goal Established Date Time Frame Goal Status OT Goal 1: Patient will follow multistep commands 100% of the time without cue 2/2 sessions. 07/28/22 2 weeks OT Goal 2: Patient will perform ambulatory level transfers to/from bed/chair/toilet with SBA x1 at rwx level. 07/28/22 2 weeks OT Goal 3: Patient will complete all aspects of toileting with SBA x1. 07/28/22 2 weeks OT Goal 4: Patient will tolerate functional dynamic standing endurance actvity at sink level >8 MIN with SBA x1. 07/28/22 Written by Annel Bowman on 08/01/22 at 12:29 PM. * Progress Notes - Lexie Iverson - 08/01/2022 12:24 PM EST Physical Therapy Treatment Patient Name: Mayo Jain Today's Date: 08/01/2022 PT Discharge Recommendations: Subacute rehab Equipment Recommended: Defer to facility Subjective Pt was agreeable to therapy session. Participants in Care Family/Caregiver Present: No Hospital Internship: Not Applicable Presentation Oxygen Therapy: None (Room air) Lines and Tubes: Intravenous access, Urinary catheter Pre-Session: Sitting in chair, Lines intact, Chair alarm Pre-Session Comments: RN approved of session Post-Session: Sitting in chair, Lines intact, Chair alarm, Call light in reach, RN notified Post-Session Comments: pt semi-reclined with tray table and lunch tray set up and accessible, all needs met Precautions Medical Precautions: Fall precautions Objective Pain Pt reported slight pain in L hand and foot, not rated, RN aware. Pt positioned for comfort at end of session. Delirium Screening Sharif Agitation Sedation Scale (RASS): Alert and calm Confusion Assessment Method-ICU (CAM-ICU/PCAM-ICU) Feature 3: Altered Level of Consciousness: Negative Transfers Transfer Exam: Sit to stand Level of [place]: Contact guard Physical/Nonphysical Assist: Verbal Cues, Nonverbal cues (demo/gestures), Set-up required Assistive Device: Walker, rolling Transfer Exam: Stand to Sit Level of [place]: Contact guard Physical/Nonphysical Assist: Verbal Cues, Set-up required, Additional assist utilized for safety, Nonverbal cues (demo/gestures) Assistive Device: Walker, rolling Ambulation Device: Rolling walker Assistance: Minimum assistance, Minimal verbal cues, Minimal tactile cues Distance : 100' Ambulation Comments: Pt ambulated with a crouched gait, decreased bilateral LE step length and clearance, downward gaze, decreased dee, and impaired safety awareness. Pt required verbal and tactile cues to improve upright posture, look up to improve obstacle avoidance, and to stay closer to RW to improve safety. Min A needed to steer RW during turns with cues to stay inside RW. Therapeutic Activity (24 minutes) Pt participated in therapeutic activity consisting of transfers and ambulation to improve independence with functional mobility. Pt required increased time throughout session to repeat instructions due to patient being hard of hearing. Pt required verbal cues to improve hand placement and safety during transfers while utilizing RW. Pt required assistance to steer RW with turns and cues to improveposture and stay closer to RW. Pt fatigued quickly after ambulation and required a seated rest break at the sink. Pt able to perform forward lean while seated with SBA for safety. Mobility CARE Tool Performance MOBILITY CARE ITEMS CARE SCORE Roll Left and Right 3 Sit to Lying 3 Lying to Sitting on Side of Bed 3 Sit to Stand 4 Chair/Dfw-jg-Lsxcc Transfer 4 Toilet Transfer 3 Car Transfer 10 Walk 10 Feet 3 Walk 50 Feet with Two Turns 3 Walk 150 Feet 88 Walking 10 Feet of Uneven Surfaces 10 1 Step (Curb) 88 4 Steps 88 12 Steps 88 Picking up Object 88 Wheel 50 Feet with Two Turns 9 Wheel 150 Feet 9 CARE Tool Performance Score Peres Score Assist Level Description 6 Independent Patient completes the activity by him/herself with no assistance from a helper. 5 Set-up or Clean-up Assistance [place] sets up or cleans up; patient completes activity. [place] assists only prior to or following the activity. 4 Supervision or touching assistance [place] provides verbal cues and/or touching/steadying and/or contact guard assistance as patient completes activity. Assistance may be provided throughout the activity or intermittently. 3 Partial/Moderate Assistance [place] does LESS THAN HALF the effort. [place] lifts, holds or supports trunk or limbs, but provides less than half the effort. 2 Substantial/Maximal Assistance [place] does MORE THAN HALF the effort. [place] lifts or holds trunkor limbs and provides more than half the effort. 1 Dependent [place] does ALL of the effort. Patient does none of the effort to complete the activity. Or, the assistance of 2 or more helpers is required for the patient to complete the activity. Activity Not Attempted Values 7 Patient refused. 9 Not applicable - Not attempted and the patient did not perform this activity prior to the currentillness, exacerbation, or injury. 10 Not attempted due to environmental limitations (e.g., lack of equipment, weather constraints) 88 Not attempted due to medical condition or safety concerns Assessment Pt was able to improve ambulation distance this session with use of RW to improve balance. Pt was limited in mobility due to impaired strength, balance, endurance, hearing, and pain. Pt continues to be a high fall risk and will benefit from subacute rehab upon discharge. Pt will continue to benefitfrom skilled PT to improve balance, strength, and functional mobility. PT Recommendations Discharge Destination: Subacute rehab Discharge Equipment: Defer to facility Plan Continue PT plan of care PT Goals PT GOAL DETAILS Goal Established Date Time Frame Goal Status PT Goal 1: Patient will perform bed mobility independently. 07/28/22 2 weeks PT Goal 2: Patient will perform sit to stand transfers independently. 07/28/22 2 weeks PT Goal 3: Patient will ambulate 150??? with a RW and supervision for safety. 07/28/22 2 weeks PT Goal 4: Patient and/or caregiver will verbalize and/or demonstrate understanding of discharge recommendation, safety recommendations and home exercise program. 07/28/22 2 weeks Written by Lexie Iverson on 08/01/22 at 12:33 PM. * Progress Notes - Amanda Day APRN, DNP - 08/01/2022 11:19 AM EST 08/01/22 Mayo Jain HPI Mayo Jain is a 62 year old male with PMH of CAD w/stents, DM w/neuropathy, CKD, asthma, GERD,mood disorder, HTN, and HLD. Patient has had multiple falls over the past several weeks. He fell again on 07/27 resulting in SDH. Past 24h: Patient awake and in bed. VSS. ORA. Patient denies nausea, vomiting, difficulty breathing, shortness of breath, chest pain, abdominal pain. He is oriented X4. Told patient that we are working on getting him to a facility; he is aware and OK with it as long as it's not the same home that he was at prior. Patient to get up and mobilize with nursing. He is agreeable. He is voiding via whitfield catheter. Last bm 07/31. He endorses passing gas. No other concerns at this time. Edited by: Amanda Day APRN, DNP at 08/01/2022 1119 A 14 point review of systems was reviewed and is negative except as mentioned in the HPI. Vital signs: Vitals: 08/01/22 0738 BP: 115/70 Pulse: 70 Resp: 17 Temp: 36.9 ??C (98.4 ??F) SpO2: 99% Physical Exam Vitals and nursing note reviewed. Constitutional: Appearance: Normal appearance. He is obese. HENT: Head: Normocephalic and atraumatic. Mouth/Throat: Mouth: Mucous membranes are moist. Pharynx: Oropharynx is clear. Eyes: General: Right eye: No discharge. Left eye: No discharge. Conjunctiva/sclera: Conjunctivae normal. Pupils: Pupils are equal, round, and reactive to light. Cardiovascular: Rate and Rhythm: Normal rate. Pulses: Normal pulses. Pulmonary: Effort: Pulmonary effort is normal. Abdominal: General: There is no distension. Palpations: There is no mass. Tenderness: There is no abdominal tenderness. There is no guarding or rebound. Hernia: No hernia is present. Genitourinary: Comments: Whitfield catheter Musculoskeletal: General: Normal range of motion. Cervical back: Normal range of motion. Skin: General: Skin is warm and dry. Neurological: General: No focal deficit present. Mental Status: He is alert and oriented to person, place, and time. Psychiatric: Mood and Affect: Mood normal. Behavior: Behavior normal. Intake/Output Summary (Last 24 hours) at 08/01/2022 1120 Last data filed at 07/31/2022 2300 Gross per 24 hour Intake -- Output 1800 ml Net -1800 ml Lines/Drains/Tubes: Patient Lines/Drains/Airways Status Active Airway None Output by Drain (mL) 07/30/22 0700 - 07/30/22 1859 07/30/22 1900 - 07/31/22 0659 07/31/22 0700 - 07/31/22 1859 07/31/22 1900 - 08/01/22 0659 08/01/22 0700 - 08/01/22 1120 Requested LDAs do not have output data documented. Labs in last 18 hours: CBC WBC ?? Hb ?? Plt ?? Hct ?? ANC ?? INR ??, PTT ??, Anti-Xa ?? MCV ?? BMP Na 130 (L) Cl 97 BUN 11 Glu 124 (H) K 4.4 Co2 25 Cr 0.70 (L) Ca 8.3 (L) iCa ?? Mg ??, Phos ?? Lactate ?? LFT AST ?? AlkPhos ?? T Prot ?? ALK ?? Bili ?? Alb ?? D.Bili ?? Lab Trends: H/H Results from last 7 days Lab Units 07/30/22 0115 07/29/22 0248 07/27/22 1550 HEMOGLOBIN g/dL 7.8* 9.3* 9.3* HEMATOCRIT % 22.7* 26.6* 26.9* INR Results from last 7 days Lab Units 07/27/22 1550 INR 1.3* Cr Results from last 7 days Lab Units 08/01/22 0450 07/30/22 0115 07/29/22 0248 CREATININE mg/dL 0.70* 0.75* 0.83 Medications reviewed. Vital signs reviewed. Labs reviewed. Radiography reviewed. Assessment and Plan: Medical Problems Problem List * (Principal) Subdural hematoma without coma Overview Addendum 07/31/2022 11:42 AM by Amanda Day APRN, DNP NSGY consulted CTH reviewed; appears meningioma present can follow up with Dr. Khan in 4 weeeks with MRI w/w/o contrast hold Brilinta for 2 weeks (resume 08/11) Diabetes mellitus type 2, insulin dependent ([facility]) (Chronic) Overview Addendum 07/31/2022 11:45 AM by Amanda Day APRN, DNP Monitor FSBS Sliding scale Class 2 severe obesity due to excess calories with serious comorbidity and body mass index (BMI) of36.0 to 36.9 in adult (CMS/[facility]) (Chronic) Overview Addendum 07/31/2022 11:45 AM by Amanda Day APRN, DNP Can complicate mobility Coronary artery disease involving assiniboine and sioux coronary artery of assiniboine and sioux heart without angina pectoris (Chronic) Overview Addendum 07/31/2022 11:45 AM by Amanda Day APRN, DNP S/p stents Home statin resumed HTN (hypertension) (Chronic) Overview Addendum 07/31/2022 11:47 AM by Amanda Day APRN, DNP Home coreg resumed Home dilt, hydrochlorothiazide and spironolactone held Gastroesophageal reflux disease without esophagitis (Chronic) Overview Addendum 07/31/2022 11:47 AM by Amanda Day APRN, DNP protonix resumed Dyslipidemia (Chronic) Overview Addendum 07/31/2022 11:47 AM by Amanda Day APRN, DNP Home statin resumed Mood disorder ([facility]/HCC) (Chronic) Overview Addendum 07/31/2022 11:48 AM by Amanda Day APRN, DNP Home celexa resumed home elavil held Mild asthma without complication (Chronic) Overview Addendum 07/31/2022 11:48 AM by Amanad Day APRN, DNP Nebs PRN Hypomagnesemia Overview Addendum 07/31/2022 11:41 AM by Amanda Day APRN, DNP Monitor/replete PRN Multiple falls Overview Addendum 07/31/2022 11:42 AM by Amanda Day APRN, DNP Over past several weeks Admit SGT Tertiary on 07/28 Multilevel degenerative disc disease Overview Addendum 07/31/2022 11:43 AM by Amanda Day APRN, DNP Cervical spine Noted on imaging Follow up with PCP as needed Hyponatremia Overview Addendum 07/31/2022 11:44 AM by Amanda Day APRN, DNP Serum osmol 279, Urine osmol 567, Urine sodium 66 Continue NS; holding HCTZ Sodium improving; stop IVF (07/30) Hypoalbuminemia Overview Addendum 07/31/2022 11:44 AM by Amanda Day APRN, DNP Resume diet Supplemental nutrition as needed Impaired mobility Overview Addendum 07/31/2022 11:44 AM by Amanda Day APRN, DNP Baseline walker Coagulopathy (CMS/HCC) Overview Addendum 07/31/2022 11:44 AM by Amanda Day APRN, DNP On Brilinta at home held for 2 weeks Can resume 08/11 Chronic kidney disease Overview Addendum 07/31/2022 11:44 AM by Amanda Day APRN, DNP Monitor Renal dose medication Avoid nephrotoxins Obesity (BMI 30-39.9) Overview Signed 07/29/2022 1:38 PM by Adrianna Dyer APRN, DNP Complicates mobilty Urinary retention Overview Addendum 07/30/2022 12:11 PM by Adrianna Dyer APRN, DNP I&O overnight 07/30; had 2L 07/30: Whitfield placed; trial removal in 3-5 days flomax started Present on Admission: Subdural hematoma without coma (Resolved) Chest pain Multilevel degenerative disc disease Hyponatremia Hypoalbuminemia Hypomagnesemia Impaired mobility Coagulopathy (CMS/HCC) Chronic kidney disease Obesity (BMI 30-39.9) Plan: - encourage nutrition and mobility; OOBTC with meals - whitfield placed; trial removal on 08/03 - am labs - melatonin - Medically ready for rehab Discharge dispo: BRETT Edited by: Amanda Day APRN, DNP at 08/01/2022 0543 Amanda Day APRN, DNP * Care Plan - Candice Raymundo RN - 08/01/2022 10:07 AM EST Problem: Adult Inpatient Plan of Care Goal: Plan of Care Review Outcome: Ongoing, Progressing Flowsheets (Taken 07/31/2022 0952) Progress: improving Plan of Care Reviewed With: patient Goal: Patient-Specific Goal (Individualized) Outcome: Ongoing, Progressing Goal: Absence of Hospital-Acquired Illness or Injury Outcome: Ongoing, Progressing Goal: Optimal Comfort and Wellbeing Outcome: Ongoing, Progressing Goal: Readiness for Transition of Care Outcome: Ongoing, Progressing Problem: Cognitive Impairment (Functional Deficit) Goal: Optimal Functional [place] Outcome: Ongoing, Progressing * Consults - Lexie Marroquin - 08/01/2022 8:54 AM EST Adult Nutrition Evaluation Note Mayo Jain 62 y.o. male CSN: [id number] Room/Bed 211/211A Nutrition evaluation type: Follow up: Reason for evaluation: Hospital course: 62 yo male admit after fall, concern for SDH. 08/01: Hyponatremia, urinary retention. Medically ready for rehab per team. Past medical/ surgical history: Past Medical History: Diagnosis Date Abnormal weight gain Abnormal weight gain Asthma Cellulitis of unspecified finger Cellulitis of unspecified finger Cellulitis of unspecified part of limb Cellulitis of hand Cellulitis, unspecified Cellulitis Chest pain 07/27/2022 EKG NSR; age indeterminate infarct Trops - no significant delta CP resolved Chronic kidney disease Diabetes mellitus ([facility]/HCC) Diabetic polyneuropathy ([facility]) Encounter for general adult medical examination without abnormal findings Normal routine physical examination Finger infection 06/13/2022 GERD (gastroesophageal reflux disease) Hyperlipidemia Hypertension Hypoglycemia 06/13/2022 Hypomagnesemia 06/13/2022 Normocytic anemia 06/13/2022 Osteomyelitis (CMS/HCC) Personal history of other endocrine, nutritional and metabolic disease History of type 2 diabetes mellitus Type 2 diabetes mellitus (CMS/HCC) Past Surgical History: Procedure Laterality Date CARDIAC STENT TOE AMPUTATION Left Partial toe Social history: Lives in a snf Additional comments: Unable to visit with patient. Vitals and Basic Assessment: BP: 115/70 Temp: 36.9 ??C (98.4 ??F) Oxygen Therapy: None (Room air) [place] Coma Scale Score: 15 Reggie Scale Score: 18 Moises/Cubbin Pressure Risk Score: 38 Last BM Date: 07/31/22 GI Symptoms: None Edema: Left lower extremity Skin: Finger wound Allergies: NKFA Medications: acetaminophen, 500 mg, Oral, q6h MED atorvastatin, 80 mg, Oral, Nightly carvedilol, 12.5 mg, Oral, BID with meals citalopram, 20 mg, Oral, Daily enoxaparin, 30 mg, Subcutaneous, BID insulin lispro, 0-5 Units, Subcutaneous, TID with meals insulin lispro, 0-3 Units, Subcutaneous, Twice at night melatonin, 3 mg, Oral, Nightly methocarbamol, 500 mg, Oral, 4x daily mometasone-formoterol, 2 puff, Inhalation, BID pantoprazole, 40 mg, Oral, Daily before breakfast Povidone-Iodine, 1 Swab., Nasal, Daily ranolazine, 1,000 mg, Oral, BID tamsulosin, 0.4 mg, Oral, Daily with dinner Meds were reviewed: Yes Labs: Lab Results Component Value Date GLUCOSE 124 (H) 08/01/2022 CALCIUM 8.3 (L) 08/01/2022 NA 130 (L) 08/01/2022 K 4.4 08/01/2022 CO2 25 08/01/2022 CL 97 08/01/2022 BUN 11 08/01/2022 CREATININE 0.70 (L) 08/01/2022 Lab Results Component Value Date HGBA1C 6.2 (H) 06/13/2022 *Na decreased. Anthropometrics: Height: 167.6 cm (5' 6 ) Weight: 95 kg (209 lb 7 oz) BMI (Calculated): 33.82 Weight Evaluation: Obese-Class 1 (BMI 30-34.9) [place] Body Weight (kg): 64.5 Percent [place] Body Weight: 143 Adjusted Body Weight (kg): 71.5 Estimated Needs: Kcal/ K Kcal Provided: 2145 Kcal Needs Based On: Adjusted weight Current Nutrition Intake: Diet supplements: Boost Glucose Control BID. Diet Order: Adult Diet Diet Texture: Regular Adult Carbohydrate Restriction: Consistent CHO 2 (6556-7510 Armond, 80 g/meal) Percent meals eaten: 75% x 1 meal Diet Experience and Nutrition History: Diet Education Provided: Will monitor Pertinent home medications: spironolactone Nutrition Focused Physical Exam: Physical exam performed on (date): Pending. Assessment of Malnutrition: Nutrition Problem: Inadequate energy intake related to ?appetite as evidenced by establishing intakes. Status of Nutrition Diagnosis: Ongoing. Nutrition Interventions and Recommendations: - Continue CC2 diet - Cont boost glucose control BID - Record PO intakes. - MVI with minerals. Nutrition Monitoring and Goals: - PO intakes >75% of meals (met) Acuity Level: 1 Lexie Marroquin * Care Plan - Linda France RN - 08/01/2022 6:23 AM EST Pt. Will remain safe & free from injury * Progress Notes - Deidra Shukla RN - 07/31/2022 2:02 PM EST Case Management Adult Progress Note Mayo Jain 62 y.o. male CSN: [id number] Admission: 07/27/2022 1:08 PM Primary Problem: Subdural hematoma without coma Anticipated Discharge Date: 08.02.2022 Have Discharge Plans Changed? No. Subacute rehab recommendations. Additional Comments Spoke with Jessica at [facility] in [place]. Mr. Jain will have a bed hold for 30 days. He lives there voluntarily to receive assistance withmedications to treat his chronic illnesses and meals/ADL assistance. He does not have a POA or legal guardian; makes all his own medical and financial decisions. He has one son; whereabouts unknown. Receives no visitors. Updated [facility] liaison in [place]. She may do an onsite visit tomorrow before approvingadmission. Rogelio Rueda [phone] fax [phone] Notify facility when patient transfers to [facility]. Deidra Shukla, RN * Progress Notes - Amanda Day APRN, DNP - 07/31/2022 11:50 AM EST 07/31/22 Mayo Jain HPI Mayo Jain is a 62 year old male with PMH of CAD w/stents, DM w/neuropathy, CKD, asthma, GERD,mood disorder, HTN, and HLD. Patient has had multiple falls over the past several weeks. He fell again on 07/27 resulting in SDH. Past 24h: Patient resting comfortably in bed. VSS. ORA. patient denies nausea, vomiting, difficulty breathing, shortness of breath, chest pain. He is tolerating PO diet. He is voiding via Whitfield catheter. Last bm 07/28. Nursing to get patient up and out of bed to the chair today. He asked for some sunglasses toblock out the sun today. No other concerns at this time. Edited by: Amanda Day APRN, DNP at 07/31/2022 1150 A 14 point review of systems was reviewed and is negative except as mentioned in the HPI. Vital signs: Vitals: 07/31/22 1131 BP: 133/76 Pulse: 70 Resp: Temp: 36.3 ??C (97.4 ??F) SpO2: 98% Physical Exam Vitals and nursing note reviewed. Constitutional: Appearance: Normal appearance. He is obese. HENT: Head: Normocephalic and atraumatic. Nose: Nose normal. Mouth/Throat: Mouth: Mucous membranes are moist. Pharynx: Oropharynx is clear. Eyes: General: Right eye: No discharge. Left eye: No discharge. Conjunctiva/sclera: Conjunctivae normal. Pupils: Pupils are equal, round, and reactive to light. Cardiovascular: Rate and Rhythm: Normal rate and regular rhythm. Pulses: Normal pulses. Heart sounds: Normal heart sounds. Pulmonary: Effort: Pulmonary effort is normal. Abdominal: General: Bowel sounds are normal. There is no distension. Palpations: Abdomen is soft. There is no mass. Tenderness: There is no abdominal tenderness. There is no guarding or rebound. Hernia: No hernia is present. Genitourinary: Comments: Whitfield catheter Musculoskeletal: General: Normal range of motion. Cervical back: Normal range of motion. Skin: General: Skin is warm and dry. Capillary Refill: Capillary refill takes less than 2 seconds. Neurological: General: No focal deficit present. Mental Status: He is alert and oriented to person, place, and time. Psychiatric: Mood and Affect: Mood normal. Behavior: Behavior normal. Intake/Output Summary (Last 24 hours) at 07/31/2022 1150 Last data filed at 07/31/2022 1043 Gross per 24 hour Intake 480 ml Output 1950 ml Net -1470 ml Lines/Drains/Tubes: Patient Lines/Drains/Airways Status Active Airway None Output by Drain (mL) 07/29/22 0700 - 07/29/22 1859 07/29/22 1900 - 07/30/22 0659 07/30/22 0700 - 07/30/22 1859 07/30/22 1900 - 07/31/22 0659 07/31/22 0700 - 07/31/22 1150 Requested LDAs do not have output data documented. Labs in last 18 hours: CBC WBC ?? Hb ?? Plt ?? Hct ?? ANC ?? INR ??, PTT ??, Anti-Xa ?? MCV ?? BMP Na ?? Cl ?? BUN ?? Glu ?? K ?? Co2 ?? Cr ?? Ca ?? iCa ?? Mg ??, Phos ?? Lactate ?? LFT AST ?? AlkPhos ?? T Prot ?? ALK ?? Bili ?? Alb ?? D.Bili ?? Lab Trends: H/H Results from last 7 days Lab Units 07/30/22 0115 07/29/22 0248 07/27/22 1550 HEMOGLOBIN g/dL 7.8* 9.3* 9.3* HEMATOCRIT % 22.7* 26.6* 26.9* INR Results from last 7 days Lab Units 07/27/22 1550 INR 1.3* Cr Results from last 7 days Lab Units 07/30/22 0115 07/29/22 0248 07/27/22 1550 CREATININE mg/dL 0.75* 0.83 1.11 Medications reviewed. Vital signs reviewed. Labs reviewed. Radiography reviewed. Assessment and Plan: Medical Problems Problem List * (Principal) Subdural hematoma without coma Overview Addendum 07/31/2022 11:42 AM by Amanda Day APRN, DNP NSGY consulted CTH reviewed; appears meningioma present can follow up with Dr. Khan in 4 weeeks with MRI w/w/o contrast hold Brilinta for 2 weeks (resume 08/11) Diabetes mellitus type 2, insulin dependent (CMS/HCC) (Chronic) Overview Addendum 07/31/2022 11:45 AM by Amanda Day APRN, DNP Monitor FSBS Sliding scale Class 2 severe obesity due to excess calories with serious comorbidity and body mass index (BMI) of36.0 to 36.9 in adult (CMS/HCC) (Chronic) Overview Addendum 07/31/2022 11:45 AM by Amanda Day APRN, DNP Can complicate mobility Coronary artery disease involving assiniboine and sioux coronary artery of assiniboine and sioux heart without angina pectoris (Chronic) Overview Addendum 07/31/2022 11:45 AM by Amanda Day APRN, DNP S/p stents Home statin resumed HTN (hypertension) (Chronic) Overview Addendum 07/31/2022 11:47 AM by Amanda Day APRN, DNP Home coreg resumed Home dilt, hydrochlorothiazide and spironolactone held Gastroesophageal reflux disease without esophagitis (Chronic) Overview Addendum 07/31/2022 11:47 AM by Amanda Day APRN, DNP protonix resumed Dyslipidemia (Chronic) Overview Addendum 07/31/2022 11:47 AM by Amanda Day APRN, DNP Home statin resumed Mood disorder (CMS/HCC) (Chronic) Overview Addendum 07/31/2022 11:48 AM by Amanda Day APRN, DNP Home celexa resumed home elavil held Mild asthma without complication (Chronic) Overview Addendum 07/31/2022 11:48 AM by Amanda Day APRN, DNP Nebs PRN Hypomagnesemia Overview Addendum 07/31/2022 11:41 AM by Amanda Day APRN, DNP Monitor/replete PRN Multiple falls Overview Addendum 07/31/2022 11:42 AM by Amanda Day APRN, DNP Over past several weeks Admit SGT Tertiary on 07/28 Multilevel degenerative disc disease Overview Addendum 07/31/2022 11:43 AM by Amanda Day APRN, DNP Cervical spine Noted on imaging Follow up with PCP as needed Hyponatremia Overview Addendum 07/31/2022 11:44 AM by Amanda Day APRN, DNP Serum osmol 279, Urine osmol 567, Urine sodium 66 Continue NS; holding HCTZ Sodium improving; stop IVF (07/30) Hypoalbuminemia Overview Addendum 07/31/2022 11:44 AM by Amanda Day APRN, DNP Resume diet Supplemental nutrition as needed Impaired mobility Overview Addendum 07/31/2022 11:44 AM by Amanda Day APRN, DNP Baseline walker Coagulopathy (CMS/HCC) Overview Addendum 07/31/2022 11:44 AM by Amanda Day APRN, DNP On Brilinta at home held for 2 weeks Can resume 08/11 Chronic kidney disease Overview Addendum 07/31/2022 11:44 AM by Amanda Day APRN, DNP Monitor Renal dose medication Avoid nephrotoxins Obesity (BMI 30-39.9) Overview Signed 07/29/2022 1:38 PM by Adrianna Dyer APRN, DNP Complicates mobilty Urinary retention Overview Addendum 07/30/2022 12:11 PM by Adrianna Dyer APRN, DNP I&O overnight 07/30; had 2L 07/30: Whitfield placed; trial removal in 3-5 days flomax started Present on Admission: Subdural hematoma without coma (Resolved) Chest pain Multilevel degenerative disc disease Hyponatremia Hypoalbuminemia Hypomagnesemia Impaired mobility Coagulopathy (CMS/HCC) Chronic kidney disease Obesity (BMI 30-39.9) Plan: - encourage nutrition and mobility; OOBTC with meals - whitfield placed; trial removal on 310 - am labs - Medically ready for rehab Discharge dispo: [facility] Edited by: Amanda Day APRN, DNP at 07/31/2022 1150 Amanad Day APRN, DNP * Care Plan - Candice Raymundo RN - 07/31/2022 9:52 AM EST Problem: Adult Inpatient Plan of Care Goal: Plan of Care Review Outcome: Ongoing, Progressing Flowsheets (Taken 07/31/2022 0952) Progress: improving Plan of Care Reviewed With: patient Goal: Patient-Specific Goal (Individualized) Outcome: Ongoing, Progressing Goal: Absence of Hospital-Acquired Illness or Injury Outcome: Ongoing, Progressing Goal: Optimal Comfort and Wellbeing Outcome: Ongoing, Progressing Goal: Readiness for Transition of Care Outcome: Ongoing, Progressing Problem: Cognitive Impairment (Functional Deficit) Goal: Optimal Functional [place] Outcome: Ongoing, Progressing * Care Plan - Linda France RN - 07/31/2022 6:38 AM EST Pt. Will be safe & free from injury, Pt. Will ambulate with assistance * Progress Notes - Deidra Shukla RN - 07/30/2022 2:00 PM EST Case Management Adult Progress Note Mayo Jain 62 y.o. male CSN: [id number] Admission: 07/27/2022 1:08 PM Primary Problem: Subdural hematoma without coma Met with patient at bedside to inquire about a legal guardian or POA. He states that he signed his check over to the snf, but does not know if he currently has a guardian or active POA. Extended Emergency Contact Information Primary Emergency Contact: Mayo Jain Mobile (DISCONNECTED) Relation: Son Preferred language: [facility] Internship needed? No Secondary Emergency Contact: Luke Dwyer Mobile ( WRONG NUMBER ) Relation: Other Preferred language: [place] Phoned [facility] in [place] [phone] Left message. Bed offer accepted at [facility] in [place]. Awaiting insurance approval. Deidra Shukla, RN * Progress Notes - Deepika Dyerecshakira Allen, CERTIFIED CYTOTECHNOLOGIST, DNP - 07/30/2022 8:00 AM EST 07/30/22 Mayo Jain HPI Mayo Jain is a 62 year old male with PMH of CAD w/stents, DM w/neuropathy, CKD, asthma, GERD,mood disorder, HTN, and HLD. Patient has had multiple falls over the past several weeks. He fell again on 07/27 resulting in SDH. Past 24h: Mr. Jain was sitting up in bed; tolerating RA. Pain is well controlled at this time and he is tolerating diet. Patient had whitfield placed this morning after retaining approximately 2L. Sodium improving; will stop IVF. VSS. NAD. No further concerns. A 14 point review of systems was reviewed and is negative except as mentioned in the HPI. Vital signs: Vitals: 07/30/22 1108 BP: (!) 144/84 Pulse: 68 Resp: 16 Temp: 36.8 ??C (98.2 ??F) SpO2: 94% Physical Exam: Physical Exam Constitutional: General: He is not in acute distress. Appearance: He is obese. HENT: Head: Normocephalic and atraumatic. Nose: Nose normal. Mouth/Throat: Mouth: Mucous membranes are moist. Eyes: General: No scleral icterus. Pupils: Pupils are equal, round, and reactive to light. Cardiovascular: Rate and Rhythm: Normal rate and regular rhythm. Pulses: Normal pulses. Heart sounds: Normal heart sounds. Pulmonary: Effort: Pulmonary effort is normal. Breath sounds: Normal breath sounds. Abdominal: General: There is no distension. Palpations: Abdomen is soft. Tenderness: There is no abdominal tenderness. Musculoskeletal: General: Normal range of motion. Cervical back: Normal range of motion. No tenderness. Comments: Walker at baseline Skin: General: Skin is warm and dry. Capillary Refill: Capillary refill takes 2 to 3 seconds. Neurological: General: No focal deficit present. Mental Status: He is alert and oriented to person, place, and time. Psychiatric: Mood and Affect: Mood normal. Behavior: Behavior normal. Intake/Output Summary (Last 24 hours) at 07/30/2022 1214 Last data filed at 07/30/2022 1100 Gross per 24 hour Intake 1791 ml Output 2650 ml Net -859 ml Lines/Drains/Tubes: Patient Lines/Drains/Airways Status Active Airway None Output by Drain (mL) 07/28/22 07 - 07/28/22 1859 07/28/22 1900 - 07/29/22 0659 07/29/22 07 - 07/29/22 1859 07/29/22 190 - 07/30/22 0659 07/30/22 07 - 07/30/22 1214 Requested LDAs do not have output data documented. Labs in last 18 hours: CBC WBC 8.86 Hb 7.8 (L) Plt 256 Hct 22.7 (L) ANC ?? INR ??, PTT ??, Anti-Xa ?? MCV 97 BMP Na 134 (L) Cl 104 BUN 12 Glu 116 (H) K 3.7 Co2 21 (L) Cr 0.75 (L) Ca 7.1 (L) iCa ?? Mg 2.4, Phos ?? Lactate ?? LFT AST ?? AlkPhos ?? T Prot ?? ALK ?? Bili ?? Alb ?? D.Bili ?? Lab Trends: H/H Results from last 7 days Lab Units 07/30/22 0115 07/29/22 0248 07/27/22 1550 HEMOGLOBIN g/dL 7.8* 9.3* 9.3* HEMATOCRIT % 22.7* 26.6* 26.9* INR Results from last 7 days Lab Units 07/27/22 1550 INR 1.3* Cr Results from last 7 days Lab Units 07/30/22 0115 07/29/22 0248 07/27/22 1550 CREATININE mg/dL 0.75* 0.83 1.11 Medications reviewed. Vital signs reviewed. Labs reviewed. Radiography reviewed. Assessment and Plan: Medical Problems Problem List * (Principal) Subdural hematoma without coma Overview Addendum 07/28/2022 4:13 PM by Adriannamarissa Dyer APRN, DNP NSGY consulted [facility] reviewed; appears meningioma present can follow up with Dr. Khan in 4 weeeks with MRI w/w/o contrast hold Brilinta for 2 weeks Diabetes mellitus type 2, insulin dependent ([facility]) (Chronic) Overview Addendum 07/28/2022 4:13 PM by Adrianna Dyer APRN, DNP Monitor FSBS Sliding scale Class 2 severe obesity due to excess calories with serious comorbidity and body mass index (BMI) of36.0 to 36.9 in adult ([facility]) (Chronic) Overview Addendum 07/28/2022 4:13 PM by Adrianna Dyer APRN, DNP Can complicate mobility Coronary artery disease involving assiniboine and sioux coronary artery of assiniboine and sioux heart without angina pectoris (Chronic) Overview Addendum 07/28/2022 4:16 PM by Adrianna Dyer APRN, DNP S/p stents Resume home medications HTN (hypertension) (Chronic) Overview Addendum 07/28/2022 4:13 PM by Adrianna Dyer APRN, DNP Resume home medications Gastroesophageal reflux disease without esophagitis (Chronic) Overview Addendum 07/28/2022 4:15 PM by Adrianna Dyer APRN, DNP Resume home medications Dyslipidemia (Chronic) Overview Addendum 07/28/2022 4:14 PM by Adrianna Dyer APRN, DNP Resume home medications Mood disorder ([facility]) (Chronic) Overview Signed 07/28/2022 4:14 PM by Adrianna Dyer APRN, DNP Resume home medications Mild asthma without complication (Chronic) Overview Signed 07/28/2022 4:15 PM by Adrianna Dyer APRN, DNP Nebs PRN Hypomagnesemia Overview Signed 07/28/2022 4:25 PM by Adrianna Dyer APRN, DNP Monitor/replete PRN Multiple falls Overview Signed 07/28/2022 4:17 PM by Adrianna Dyer APRN, DNP Over past several weeks Admit SGT Tertiary on 07/28 PT/OT Multilevel degenerative disc disease Overview Signed 07/28/2022 4:23 PM by Adrianna Dyer APRN, DNP Cervical spine Noted on imaging Follow up with PCP as needed Hyponatremia Overview Addendum 07/30/2022 12:13 PM by Adrianna Dyer APRN, DNP Serum osmol 279, Urine osmol 567, Urine sodium 66 Continue NS; holding HCTZ Sodium improving; stop IVF (07/30) Hypoalbuminemia Overview Signed 07/28/2022 4:25 PM by Adrianna Dyer APRN, DNP Resume diet Supplemental nutrition as needed Impaired mobility Overview Signed 07/28/2022 4:26 PM by Adrianna Dyer APRN, DNP Baseline walker Coagulopathy ([facility]) Overview Signed 07/28/2022 4:27 PM by Adrianna Dyer APRN, DNP On Brilinta at home Chronic kidney disease Overview Signed 07/29/2022 1:22 PM by Adrianna Dyer APRN, DNP Monitor Renal dose medication Avoid nephrotoxins Obesity (BMI 30-39.9) Overview Signed 07/29/2022 1:38 PM by Adrianna Dyer APRN, DNP Complicates mobilty Urinary retention Overview Addendum 07/30/2022 12:11 PM by Adrianna Dyer APRN, DNP I&O overnight 07/30; had 2L 07/30: Whitfield placed; trial removal in 3-5 days flomax started Chest pain Overview Addendum 07/28/2022 4:10 PM by Adrianna Dyer APRN, DNP EKG NSR; age indeterminate infarct Trops - no significant delta CP resolved Present on Admission: Subdural hematoma without coma Chest pain Multilevel degenerative disc disease Hyponatremia Hypoalbuminemia Hypomagnesemia Impaired mobility Coagulopathy ([facility]) Chronic kidney disease Obesity (BMI 30-39.9) Plan: - encourage nutrition and mobility; OOBTC with meals - continue to hold Brilinta - whitfield placed; trial removal in 3-5 days - stop IVF - send AM labs - Medically ready for rehab Discharge dispo: BRETT Dyer APRN, DNP * Progress Notes - Anastasiia Mae RN - 07/29/2022 2:01 PM EST Case Management Adult Initial Progress Note Mayo Jain 62 y.o. male CSN: [id number] Admission: 07/27/2022 1:08 PM Primary Problem: Subdural hematoma without coma Commodity Specialist reviewed chart and spoke with patient to complete this Initial Case Management Assessment. PCP: Junior Alas MD Pharmacy: Unable to remember Emergency Contact: Extended Emergency Contact Information Primary Emergency Contact: Mayo Jain Mobile Relation: Son Preferred language: [facility] needed? No Secondary Emergency Contact: Luke Dwyer Mobile Relation: Other Preferred language: [facility] needed? No Insurance: Primary Visit Coverage Payer Plan Sponsor Code Group Number Group Name MEDICARE MEDICARE A & B Primary Visit Coverage Subscriber Subscriber ID Subscriber Name Subscriber SSN Subscriber Address [id number] MAYO JAIN W [id number] [address] [place] [address] Patient information: Patient was living at [facility], assisted living, at the address listed below. Patient statedthat he doesn't want to return there at time of discharge because it's too dangerous. I kept falling down . Stated that he wants to go somewhere else, preferably to a place in [place], but was unable to recall the name of the facility. Reports that he uses a cane, but still has problems with mobility. No HH or infusion services and no preference if needed. Stated that 3 other people live in the home where he currently resides. Daily Living Activities: [address] [facility] [address] Current DME: Cane Income Information: Housing Circumstances-Z Codes: Patient Referred to: Anticipated Discharge Date: TBD Patient's Discharge Goal: Return to assisted living facility Assistance Available at Discharge: Assisted living- patient unable to describe the type of assistance or hours available. Discharge Transport: Facility to provide, per patient. Follow Up Transport: Facility to provide, per patient. Home Health / Home Infusion / Outpatient Dialysis Services: None reported. Living Will/Advance Directive/Power of Texturing Machine Fixer /Guardian: None reported Additional Comments: CM will continue to follow and assist with discharge planning as needed. Anastasiia Mae RN * Care Plan - Miranda, Lu L, RN - 07/29/2022 12:05 PM EST Problem: Adult Inpatient Plan of Care Goal: Patient-Specific Goal (Individualized) Flowsheets (Taken 07/29/2022 0800) Patient/Family-Specific Goals (Include Timeframe): pt will remain free from falls this shift. Individualized Care Needs: Fall prevention Anxieties, Fears or Concerns: none stated * Progress Notes - Adrianna Dyer APRN, ANAYELI - 07/29/2022 8:30 AM EST 07/29/22 Mayo Jain HPI Mayo Jain is a 62 year old male with PMH of CAD w/stents, DM w/neuropathy, CKD, asthma, GERD,mood disorder, HTN, and HLD. Patient has had multiple falls over the past several weeks. He fell again on 07/27 resulting in SDH. Past 24h: Mr. Jain was resting in bed today; easily awakened. Patient states that he slept well over nightand that pain is well controlled. He does not want to go back to his snf as he states that it is not safe and he keeps falling. VSS. NAD. No further concerns. A 14 point review of systems was reviewed and is negative except as mentioned in the HPI. Vital signs: Vitals: 07/29/22 1120 BP: 105/78 Pulse: 68 Resp: 14 Temp: 36.6 ??C (97.9 ??F) SpO2: 96% Physical Exam: Physical Exam Constitutional: General: He is not in acute distress. Appearance: He is obese. HENT: Head: Normocephalic and atraumatic. Nose: Nose normal. Mouth/Throat: Mouth: Mucous membranes are moist. Eyes: General: No scleral icterus. Pupils: Pupils are equal, round, and reactive to light. Cardiovascular: Rate and Rhythm: Normal rate and regular rhythm. Pulses: Normal pulses. Heart sounds: Normal heart sounds. Pulmonary: Effort: Pulmonary effort is normal. Breath sounds: Normal breath sounds. Abdominal: General: There is no distension. Palpations: Abdomen is soft. Tenderness: There is no abdominal tenderness. Musculoskeletal: General: Normal range of motion. Cervical back: Normal range of motion. No tenderness. Comments: Walker at baseline Skin: General: Skin is warm and dry. Capillary Refill: Capillary refill takes 2 to 3 seconds. Neurological: General: No focal deficit present. Mental Status: He is alert and oriented to person, place, and time. Psychiatric: Mood and Affect: Mood normal. Behavior: Behavior normal. Intake/Output Summary (Last 24 hours) at 07/29/2022 1338 Last data filed at 07/29/2022 1200 Gross per 24 hour Intake 1364.67 ml Output 100 ml Net 1264.67 ml Lines/Drains/Tubes: Patient Lines/Drains/Airways Status Active Airway None Output by Drain (mL) 07/27/22 07 - 07/27/22 18507/27/22 1900 - 07/28/22 0659 07/28/22 07 - 07/28/22 1859 07/28/22 190 - 07/29/22 0659 07/29/22 07 - 07/29/22 1338 Patient has no LDAs of requested type attached. Labs in last 18 hours: CBC WBC 10.09 Hb 9.3 (L) Plt 303 Hct 26.6 (L) ANC ?? INR ??, PTT ??, Anti-Xa ?? MCV 93 BMP Na 128 (L) Cl 95 (L) BUN 14 Glu 108 (H) K 4.0 Co2 24 Cr 0.83 Ca 8.6 (L) iCa ?? Mg ??, Phos ?? Lactate ?? LFT AST ?? AlkPhos ?? T Prot ?? ALK ?? Bili ?? Alb ?? D.Bili ?? Lab Trends: H/H Results from last 7 days Lab Units 07/29/22 0248 07/27/22 1550 HEMOGLOBIN g/dL 9.3* 9.3* HEMATOCRIT % 26.6* 26.9* INR Results from last 7 days Lab Units 07/27/22 1550 INR 1.3* Cr Results from last 7 days Lab Units 07/29/22 0248 07/27/22 1550 CREATININE mg/dL 0.83 1.11 Medications reviewed. Vital signs reviewed. Labs reviewed. Radiography reviewed. Assessment and Plan: Medical Problems Problem List * (Principal) Subdural hematoma without coma Overview Addendum 07/28/2022 4:13 PM by Adrianna Dyer APRN, DNP NSGY consulted [facility] reviewed; appears meningioma present can follow up with Dr. Khan in 4 weeeks with MRI w/w/o contrast hold Brilinta for 2 weeks Diabetes mellitus type 2, insulin dependent ([facility]) (Chronic) Overview Addendum 07/28/2022 4:13 PM by Adrianna Dyer APRN, DNP Monitor FSBS Sliding scale Class 2 severe obesity due to excess calories with serious comorbidity and body mass index (BMI) of36.0 to 36.9 in adult ([facility]) (Chronic) Overview Addendum 07/28/2022 4:13 PM by Adrianna Dyer APRN, DNP Can complicate mobility Coronary artery disease involving assiniboine and sioux coronary artery of assiniboine and sioux heart without angina pectoris (Chronic) Overview Addendum 07/28/2022 4:16 PM by Adrianna Dyer APRN, DNP S/p stents Resume home medications HTN (hypertension) (Chronic) Overview Addendum 07/28/2022 4:13 PM by Adrianna Dyer APRN, DNP Resume home medications Gastroesophageal reflux disease without esophagitis (Chronic) Overview Addendum 07/28/2022 4:15 PM by Adrianna Dyer APRN, DNP Resume home medications Dyslipidemia (Chronic) Overview Addendum 07/28/2022 4:14 PM by Adrianna Dyer APRN, DNP Resume home medications Mood disorder ([facility]) (Chronic) Overview Signed 07/28/2022 4:14 PM by Adrianna Dyer APRN, DNP Resume home medications Mild asthma without complication (Chronic) Overview Signed 07/28/2022 4:15 PM by Adrianna Dyer APRN, DNP Nebs PRN Hypomagnesemia Overview Signed 07/28/2022 4:25 PM by Adrianna Dyer APRN, DNP Monitor/replete PRN Multiple falls Overview Signed 07/28/2022 4:17 PM by Adrianna Dyer APRN, DNP Over past several weeks Admit SGT Tertiary on 07/28 PT/OT Multilevel degenerative disc disease Overview Signed 07/28/2022 4:23 PM by Adrianna Dyer APRN, DNP Cervical spine Noted on imaging Follow up with PCP as needed Hyponatremia Overview Addendum 07/29/2022 1:34 PM by Adrianna Dyer APRN, DNP Serum osmol 279, Urine osmol 567, Urine sodium 66 Continue NS; holding HCTZ Sodium improving Hypoalbuminemia Overview Signed 07/28/2022 4:25 PM by Adrianna Dyer APRN, DNP Resume diet Supplemental nutrition as needed Impaired mobility Overview Signed 07/28/2022 4:26 PM by Adrianna Dyer APRN, DNP Baseline walker Coagulopathy ([facility]) Overview Signed 07/28/2022 4:27 PM by Adrianna Dyer APRN, DNP On Brilinta at home Chronic kidney disease Overview Signed 07/29/2022 1:22 PM by Adrianna Dyer APRN, DNP Monitor Renal dose medication Avoid nephrotoxins Obesity (BMI 30-39.9) Overview Signed 07/29/2022 1:38 PM by Adrianna Dyer APRN, DNP Complicates mobilty Chest pain Overview Addendum 07/28/2022 4:10 PM by Adrianna Dyer APRN, DNP EKG NSR; age indeterminate infarct Trops - no significant delta CP resolved Present on Admission: Subdural hematoma without coma Chest pain Multilevel degenerative disc disease Hyponatremia Hypoalbuminemia Hypomagnesemia Impaired mobility Coagulopathy ([facility]) Chronic kidney disease Obesity (BMI 30-39.9) Plan: - encourage nutrition and mobility; OOBTC with meals - continue NS - continue to hold Brilinta - AM labs Discharge dispo: BRETT Dyer APRN, DNP * Hospital Course - Amanda Day APRN, DNP - 07/28/2022 5:10 PM EST Mayo Jain is a 62 year old male with PMH of CAD w/stents, DM, asthma, GERD, mood disorder, HTN, and HLD. Patient has had multiple falls over the past several weeks. He fell again on 07/27 resulting in SDH. Physical therapy and occupational therapy evaluated the patient during hospitalization and recommend subacute rehab. At the time of discharge the patient was hemodynamically stable, tolerating PO, voiding spontaneously, normal bowel function, mobilizing appropriately, with their pain controlled with PO medication. At this time, the patient has obtained the maximum benefit from the present hospital stay, and so will be discharged to Medication -Do NOT resume home brilinta or asa for 2 weeks. May resumed on 08/11 -Patients hydrochlorothiazide, spironolactone, lisinopril, imdur were held while in hospital due tonormotension. Discuss with PCP prior to resuming -Patients Elavil was held while inpatient Urinary retention Whitfield removal and void trial on 08/03 DVT prophylaxis: hold Brilinta for 2 weeks (through 08/11) Procedures: None Mobility Restrictions: Activity as tolerated Follow up: Primary care provider in 1-2 weeks post hospitalization Neurosurgery: Dr. Khan in 4 weeeks with MRI w/w/o contrast Questions or Concerns and Appointments If there are questions or concerns after discharge from the hospital, please call [phone] and ask for [facility] Nurse. Working hours are Saturday - Saturday 8:00 AM to 4:00 PM. After hours, weekends and holidays please call [phone] and ask for the resident power generation plant operator for [facility]. For appointments please call [phone]. Medication requests should be made between the hours of 9:00 AM to 3:00 PM Saturday thru Saturday. Please note that based upon recent changes to [place] law related to prescribing opioid pain medications, our providers will not provide refills on controlled medications after your hospital discharge following a major surgery or trauma. [place], [place] 201 KAR9:260. * Care Plan - Lu Jean RN - 07/28/2022 1:25 PM EST Problem: Adult Inpatient Plan of Care Goal: Patient-Specific Goal (Individualized) Flowsheets (Taken 07/28/2022 0800) Patient/Family-Specific Goals (Include Timeframe): pt will remain free from falls this shift. Individualized Care Needs: fall prevention Anxieties, Fears or Concerns: none stated * Progress Notes - Adrianna Dyer APRN, ANAYELI - 07/28/2022 11:30 AM EST TRAUMA SURGERY TERTIARY SURVEY 07/28/22 Mayo Jain is a 62 year old male with PMH of CAD w/stents, DM, asthma, GERD, mood disorder, HTN, and HLD. Patient has had multiple falls over the past several weeks. He fell again on 07/27 resulting in SDH. Past 24h: Mr. Jain was sitting up in the chair today; tolerating RA. Patient states that he uses a walker at baseline and has fallen several times over the past few weeks. He lives in a snf and states that he does not want to go back because it is unsafe and he keeps falling. Patient endorses generalized soreness and mild headache. He denies N/V, SOA, dizziness, vision changes, or numbness/tingling. Patient initially had chest pain on admission but since denies. Imaging reviewed and tertiary completed; no new injuries. Past Medical History: Active Ambulatory Problems Diagnosis Date Noted Diabetes mellitus type 2, insulin dependent ([facility]) 06/13/2022 Class 2 severe obesity due to excess calories with serious comorbidity and body mass index (BMI) of36.0 to 36.9 in adult ([facility]) 06/13/2022 Coronary artery disease involving assiniboine and sioux coronary artery of assiniboine and sioux heart without angina pectoris 06/13/2022 HTN (hypertension) 06/13/2022 Gastroesophageal reflux disease without esophagitis 06/13/2022 Dyslipidemia 06/13/2022 Mood disorder ([facility]) 06/13/2022 Mild asthma without complication 06/13/2022 Hypomagnesemia 06/13/2022 Resolved Ambulatory Problems Diagnosis Date Noted Finger infection 06/13/2022 Hypoglycemia 06/13/2022 Felon of finger 06/13/2022 Normocytic anemia 06/13/2022 Past Medical History: Diagnosis Date Abnormal weight gain Asthma Cellulitis of unspecified finger Cellulitis of unspecified part of limb Cellulitis, unspecified Chronic kidney disease Diabetes mellitus ([facility]) Diabetic polyneuropathy ([facility]) Encounter for general adult medical examination without abnormal findings GERD (gastroesophageal reflux disease) Hyperlipidemia Hypertension Osteomyelitis ([facility]) Personal history of other endocrine, nutritional and metabolic disease Type 2 diabetes mellitus ([facility]) Past Surgical History: Past Surgical History: Procedure Laterality Date 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 Authorizing Provider albuterol 108 (90 Base) MCG/ACT inhaler Inhale 2 puffs every 4 (four) hours if needed for wheezing.Yes Historical Provider, amitriptyline (Elavil) 10 MG tablet Take 10 mg by mouth every night. Yes Historical Provider, aspirin 81 MG EC tablet Take 81 mg by mouth 1 (one) time each day. Yes Historical Provider, atorvastatin (Lipitor) 80 MG tablet Take 80 mg by mouth 1 (one) time each day. Yes Historical Provider, carvedilol (Coreg) 12.5 MG tablet Take 12.5 mg by mouth 2 (two) times a day with meals. Yes Historical Provider, citalopram (CeleXA) 20 MG tablet Take 20 mg by mouth 1 (one) time each day. Yes Historical Provider, dilTIAZem CD (Cardizem CD) 120 MG 24 hr capsule Take 120 mg by mouth 1 (one) time each day. Yes Historical Provider, Fluticasone Furoate-Vilanterol 100-25 MCG/ACT aerosol powder Inhale 1 puff 1 (one) time each day. Yes Historical Provider, hydroCHLOROthiazide (HYDRODiuril) 25 MG tablet Take 25 mg by mouth 1 (one) time each day. Yes Historical Provider, Icosapent Ethyl (Vascepa) 1 g capsule Take 1 capsule by mouth 2 (two) times a day with meals. Yes Historical Provider, insulin aspart protamine-insulin aspart (NovoLOG Mix 70-30) (70-30) 100 UNIT/ML injection vial Inject under the skin 2 (two) times a day with meals. 30 units with breakfast and 40 units with supper Yes Historical Provider, isosorbide mononitrate ER (Imdur) 120 MG 24 hr tablet Take 120 mg by mouth 1 (one) time each day. Do not crush or chew. Yes Historical Provider, lisinopril 5 MG tablet Take 5 mg by mouth 1 (one) time each day. Yes Historical Provider, pantoprazole (Protonix) 40 MG EC tablet Take 40 mg by mouth 1 (one) time each day before breakfast.Do not crush, chew, or split. Yes Historical Provider, ranolazine (Ranexa) 1000 MG 12 hr tablet Take 1 tablet by mouth 2 (two) times a day. Yes HistoricalProviderMD spironolactone (Aldactone) 25 MG tablet Take 25 mg by mouth 1 (one) time each day. Yes Historical Provider, ticagrelor (Brilinta) 90 MG tablet Take 90 mg by mouth 2 (two) times a day. Yes Historical Provider, acetaminophen (Tylenol) 500 MG tablet Take 1,000 mg by mouth every 6 (six) hours if needed. 07/28/22 Yes Historical ProviderMD Social History: Pt has reports that he has never smoked. He has never used smokeless tobacco. He reports that he does not currently use alcohol. He reports that he does not use drugs. (details as available below) Social History Substance and Sexual Activity Alcohol Use Not Currently Social History Substance and Sexual Activity Drug Use Never Social History Tobacco Use Smoking Status Never Smokeless Tobacco Never A 14 point review of systems was reviewed and is negative except as mentioned in the HPI. Vital signs: Visit Vitals BP 128/77 Pulse 72 Temp 36.6 ??C (97.8 ??F) Resp 16 Ht 1.676 m (5' 6 ) Wt 92.4 kg (203 lb 11.3 oz) SpO2 94% BMI 32.88 kg/m?? Smoking Status Never BSA 2.07 m?? Physical Exam: Physical Exam Constitutional: General: He is not in acute distress. Appearance: He is obese. HENT: Head: Normocephalic and atraumatic. Right Ear: External ear normal. Left Ear: External ear normal. Nose: Nose normal. Mouth/Throat: Mouth: Mucous membranes are moist. Eyes: General: No scleral icterus. Pupils: Pupils are equal, round, and reactive to light. Cardiovascular: Rate and Rhythm: Normal rate and regular rhythm. Pulses: Normal pulses. Heart sounds: Normal heart sounds. Pulmonary: Effort: Pulmonary effort is normal. Breath sounds: Normal breath sounds. Chest: Chest wall: No tenderness. Abdominal: General: There is no distension. Palpations: Abdomen is soft. Tenderness: There is no abdominal tenderness. Musculoskeletal: General: Normal range of motion. Cervical back: Normal range of motion. No tenderness. Comments: Walker at baseline No spine tenderness No pelvic tenderness Skin: General: Skin is warm and dry. Capillary Refill: Capillary refill takes 2 to 3 seconds. Neurological: General: No focal deficit present. Mental Status: He is alert and oriented to person, place, and time. Psychiatric: Mood and Affect: Mood normal. Behavior: Behavior normal. Intake/Output Summary (Last 24 hours) at 07/28/2022 1634 Last data filed at 07/28/2022 1600 Gross per 24 hour Intake 1293.75 ml Output -- Net 1293.75 ml Lines/Drains/Tubes: Patient Lines/Drains/Airways Status Active Airway None Output by Drain (mL) 07/26/22 0700 - 07/26/22 1859 07/26/22 1900 - 07/27/22 0659 07/27/22 0700 - 07/27/22 1859 07/27/22 1900 - 07/28/22 0659 07/28/22 0700 - 07/28/22 1634 Patient has no LDAs of requested type attached. Labs in last 18 hours: CBC WBC ?? Hb ?? Plt ?? Hct ?? ANC ?? INR ??, PTT ??, Anti-Xa ?? BMP Na ?? Cl ?? BUN ?? Glu ?? K ?? Co2 ?? Cr ?? Ca ?? iCa ?? Mg ??, Phos ?? Lactate ?? LFT AST ?? AlkPhos ?? T Prot ?? ALK ?? Bili ?? Alb ?? D.Bili ?? Lab Trends: H/H Results from last 7 days Lab Units 07/27/22 1550 HEMOGLOBIN g/dL 9.3* HEMATOCRIT % 26.9* INR Results from last 7 days Lab Units 07/27/22 1550 INR 1.3* Cr Results from last 7 days Lab Units 07/27/22 1550 CREATININE mg/dL 1.11 Lactate No lab exists for component: LACTTEVEN Radiology: All imaging reviewed and findings documented I have reviewed the active problem list, medication list, lab results, and imaging. I performed a complete tertiary exam, reviewed patient history, lab studies and all available imaging. All traumatic or incidental findings have been documented. Assessment and Plan: Medical Problems Problem List * (Principal) Subdural hematoma without coma Overview Addendum 07/28/2022 4:13 PM by Adrianna Dyer APRN, DNP NSGY consulted CTH reviewed; appears meningioma present can follow up with Dr. Khan in 4 weeeks with MRI w/w/o contrast hold Brilinta for 2 weeks Diabetes mellitus type 2, insulin dependent ([facility]) (Chronic) Overview Addendum 07/28/2022 4:13 PM by Adrianna Dyer APRN, DNP Monitor FSBS Sliding scale Class 2 severe obesity due to excess calories with serious comorbidity and body mass index (BMI) of36.0 to 36.9 in adult ([facility]) (Chronic) Overview Addendum 07/28/2022 4:13 PM by Adrianna Dyer APRN, DNP Can complicate mobility Coronary artery disease involving [place] coronary artery of assin[place] and sioux heart without angina pectoris (Chronic) Overview Addendum 07/28/2022 4:16 PM by Adrianna Dyer APRN, DNP S/p stents Resume home medications HTN (hypertension) (Chronic) Overview Addendum 07/28/2022 4:13 PM by Adrianna Dyer APRN, DNP Resume home medications Gastroesophageal reflux disease without esophagitis (Chronic) Overview Addendum 07/28/2022 4:15 PM by Adrianna Dyer APRN, DNP Resume home medications Dyslipidemia (Chronic) Overview Addendum 07/28/2022 4:14 PM by Adrianna Dyer APRN, DNP Resume home medications Mood disorder ([facility]) (Chronic) Overview Signed 07/28/2022 4:14 PM by Adrianna Dyer APRN, DNP Resume home medications Mild asthma without complication (Chronic) Overview Signed 07/28/2022 4:15 PM by Adrianna Dyer APRN, DNP Nebs PRN Hypomagnesemia Overview Signed 07/28/2022 4:25 PM by Adrianna Dyer APRN, DNP Monitor/replete PRN Multiple falls Overview Signed 07/28/2022 4:17 PM by Adrianna Dyer APRN, DNP Over past several weeks Admit SGT [facility] on 07/28 PT/OT Multilevel degenerative disc disease Overview Signed 07/28/2022 4:23 PM by Adrianna Dyer APRN, DNP Cervical spine Noted on imaging Follow up with PCP as needed Hyponatremia Overview Signed 07/28/2022 4:24 PM by Adrianna Dyer APRN, DNP NS started Send urine osmol, sodium, serum osmol AM labs Hypoalbuminemia Overview Signed 07/28/2022 4:25 PM by Adrianna Dyer APRN, DNP Resume diet Supplemental nutrition as needed Impaired mobility Overview Signed 07/28/2022 4:26 PM by Adrianna Dyer APRN, DNP Baseline walker Coagulopathy (CMS/HCC) Overview Signed 07/28/2022 4:27 PM by Adrianna Dyer APRN, DNP On Brilinta at home Chest pain Overview Addendum 07/28/2022 4:10 PM by Adrianna Dyer APRN, DNP EKG NSR; age indeterminate infarct Trops - no significant delta CP resolved Present on Admission: Subdural hematoma without coma Chest pain Multilevel degenerative disc disease Hyponatremia Hypoalbuminemia Hypomagnesemia Impaired mobility Coagulopathy (CMS/HCC) To Do: - resume home medications - replace magnesium - start IVF - send serum osmol, urine osmol/sodium - AM labs - PT/OT - start diet - encourage nutrition and mobility Discharge dispo: PT/OT pending Adrianna Dyer APRN, DNP * Progress Notes - Rk Mistry - 07/28/2022 11:00 AM EST Physical Therapy Evaluation Patient Name: Mayo Jain Today's Date: 07/28/2022 PT Discharge Recommendations: Subacute rehab Equipment Recommended: Defer to facility History Mayo Jain is 62 y.o. male admitted 07/27/2022 for work-up of Subdural hematoma without coma. Problem List Active Hospital Problems Diagnosis Date Noted Subdural hematoma without coma 07/27/2022 Chest pain 07/27/2022 Procedures Past Medical History Patient has a past medical history of Abnormal weight gain, Asthma, Cellulitis of unspecified finger, Cellulitis of unspecified part of limb, Cellulitis, unspecified, Chronic kidney disease, Diabetesmellitus ([facility]), Diabetic polyneuropathy ([facility]), Encounter for general adult medical examination without abnormal findings, GERD (gastroesophageal reflux disease), Hyperlipidemia, Hypertension,Osteomyelitis ([facility]), Personal history of other endocrine, nutritional and metabolic disease, and Type 2 diabetes mellitus ([facility]). Past Surgical History Patient has a past surgical history that includes Toe amputation (Left) and cardiac stent. Precautions Medical Precautions: Fall precautions Subjective Patient with decreased safety awareness throughout all standing tasks. Participants in Care Family/Caregiver Present: No Hospital Internship: Not Applicable Presentation Oxygen Therapy: None (Room air) Lines and Tubes: Intravenous access, Telemetry Pre-Session: Sitting in chair, Lines intact, Chair alarm Pre-Session Comments: RN approved of session Post-Session: Sitting in chair, Lines intact, Chair alarm, Call light in reach Post-Session Comments: all needs met Home Living/Set-up Home Type: [facility] Home Adaptive Equipment: Cane Home Living Comments: Patient with difficulty providing insight into PLOF. Per EMR patient has had multiple falls in his snf and patient stated he had been falling more often. He also reports he has to be independent at his group ohome including showers and all ADL's. Prior Level of Function History of Falls: Yes Patient/Family Goals Objective Pain No complaints of pain during session. Delirium Screening Sharif Agitation Sedation Scale (RASS): Drowsy Confusion Assessment Method-ICU (CAM-ICU/PCAM-ICU) Feature 3: Altered Level of Consciousness: Positive Cognition Overall Cognitive Status: Impaired Arousal/Alertness: Inconsistent responses to stimuli Mood/Behavior: Anxious, Impulsive Orientation Level: Oriented to person, Oriented to time, Oriented to place Single Step Commands: With increased time, With repetition, 75% of the time Multi-Step Commands: 50% of the time, With increased time, With repetition Method of Communication: Verbal Right Upper Extremity Examination RUE Assessment: Within Functional Limits Manual Muscle Testing - RUE: Within functional limits Sensation Light Touch: Right Upper Extremity: Intact Left Upper Extremity Examination LUE ROM Assessment LUE Assessment: Within Functional Limits Manual Muscle Testing - LUE Manual Muscle Testing - LUE: Within functional limits Sensation Light Touch: Left Upper Extremity: Intact Right Lower Extremity Examination RLE ROM Assessment RLE Assessment: Within Functional Limits Manual Muscle Testing - RLE Manual Muscle Testing - RLE: Within functional limits Sensation Light Touch: Right Lower Extremity: Mild impairment Left Lower Extremity Examination LLE Assessment: Within Functional Limits Manual Muscle Testing: Within functional limits Sensation Light Touch: Left Lower Extremity: Moderate impairment Transfers Transfer Exam: Sit to stand Level of [place]: Minimum assist (75% patient's effort) Physical/Nonphysical Assist: Verbal Cues, Set-up required, 1 person + 1 person to manage equipment Assistive Device: Walker, rolling Transfer Exam: Stand to Sit Level of [place]: Minimum assist (75% patient's effort) Physical/Nonphysical Assist: 1 person + 1 person to manage equipment, Verbal Cues, Set-up required Toilet Transfer Level of [place]: Minimum assist (75% patient's effort) Physical/Nonphysical Assist: Verbal Cues, Set-up required Type of Transfer: Ambulation, To toilet Assistive Device: Grab bar Ambulation Device: Rolling walker Assistance: Minimum assistance, Minimal verbal cues, Additional assist needed for line management Distance : 15'x2 Ambulation Comments: Patient was unsteady and required frequent cues for RW management, posture, pacing, and improving gait quality. Balance Postural Appearance Posture: Stooped posture, Forward head Static Sitting Balance Static Sitting-Balance Support: Feet supported Static Sitting-Level of Assistance: Independent Dynamic Sitting Balance Dynamic Sitting-Balance Support: Feet supported Level of Assistance: Supervision Static Standing Balance Static Standing-Balance Support: Right upper extremity support, Left upper extremity support Static Standing-Level of Assistance: Contact guard Dynamic Standing Balance Dynamic Standing-Balance Support: Right upper extremity support, Left upper extremity support Dynamic Standing Level of Assistance: Minimum assistance Participation in Functional Tasks: Minimum assistance Therapeutic Activity (11 minutes) Patient required brief breaks and increased time throughout session due to shortness of air/fatigue. Therapist provided cues for focus on pacing and energy conservation in order to improve endurance/activity tolerance this session. Patient was able to ambulate 15' into bathroom. He required assistance for talita- care/hygiene. He was able to stand at sink up to ~1:30 before requiring seated rest break. Mobility CARE Tool Performance MOBILITY CARE ITEMS CARE SCORE Roll Left and Right 3 Sit to Lying 3 Lying to Sitting on Side of Bed 3 Sit to Stand 3 Chair/Yri-di-Wkyvc Transfer 3 Toilet Transfer 3 Car Transfer 10 Walk 10 Feet 3 Walk 50 Feet with Two Turns 88 Walk 150 Feet 88 Walking 10 Feet of Uneven Surfaces 10 1 Step (Curb) 88 4 Steps 88 12 Steps 88 Picking up Object 88 Wheel 50 Feet with Two Turns 9 Wheel 150 Feet 9 CARE Tool Performance Score Peres Score Assist Level Description 6 Independent Patient completes the activity by him/herself with no assistance from a helper. 5 Set-up or Clean-up Assistance [place] sets up or cleans up; patient completes activity. [place] assists only prior to or following the activity. 4 Supervision or touching assistance [place] provides verbal cues and/or touching/steadying and/or contact guard assistance as patient completes activity. Assistance may be provided throughout the activity or intermittently. 3 Partial/Moderate Assistance [place] does LESS THAN HALF the effort. [place] lifts, holds or supports trunk or limbs, but provides less than half the effort. 2 Substantial/Maximal Assistance [place] does MORE THAN HALF the effort. [place] lifts or holds trunkor limbs and provides more than half the effort. 1 Dependent [place] does ALL of the effort. Patient does none of the effort to complete the activity. Or, the assistance of 2 or more helpers is required for the patient to complete the activity. Activity Not Attempted Values 7 Patient refused. 9 Not applicable - Not attempted and the patient did not perform this activity prior to the currentillness, exacerbation, or injury. 10 Not attempted due to environmental limitations (e.g., lack of equipment, weather constraints) 88 Not attempted due to medical condition or safety concerns Standardized Assessments Standardized Assessments Standardized Assessments: [facility] 6-Clicks Mobility Assessment [facility] 6-Clicks Mobility Assessment Difficulty patient has turning over in bed (including adjusting bedclothes, sheets, and blankets)?:A little Difficulty patient has sitting down on and standing up from a chair with arms (wheelchair, bedside commode, etc.)?: A little Difficulty patient has moving from lying on back to sitting on the side of the bed?: A little How much help does the patient need moving to and from a bed to a chair (including a wheelchair)?: A little How much help does the patient need to walk in hospital room?: A little How much help does the patient need climbing 3-5 steps with a railing?: Unable [facility] 6-Clicks Mobility Assessment Total : 16 Standardized Assessments Standardized Assessments Standardized Assessments: [facility] 6-Clicks Mobility Assessment [facility] 6-Clicks Mobility Assessment Difficulty patient has turning over in bed (including adjusting bedclothes, sheets, and blankets)?:A little Difficulty patient has sitting down on and standing up from a chair with arms (wheelchair, bedside commode, etc.)?: A little Difficulty patient has moving from lying on back to sitting on the side of the bed?: A little How much help does the patient need moving to and from a bed to a chair (including a wheelchair)?: A little How much help does the patient need to walk in hospital room?: A little How much help does the patient need climbing 3-5 steps with a railing?: Unable [facility] 6-Clicks Mobility Assessment Total : 16 Assessment Current impairments are leading to decreased activity tolerance and increased dependence on caregivers. Patient reports he doesn't feel that he would be safe returning to snf at this time. Patient would benefit from continued skilled PT services to facilitate return to [facility]. Impairments: Impaired cognition/safety awareness, Impaired locomotion, Impaired gait dynamics/performance, Impaired balance, Impaired functional mobility/transfers Activity Limitations: Inability to ambulate community distances, Inability to complete ADLs independently, Inability to ambulate independently, Inability to transfer independently, Inability to ambulate household distances Participation Restrictions: Home management, Work, Community leisure, Self-care Activity Tolerance: Tolerates 10 - 20 min activity with multiple rests Evaluation/Treatment Tolerance: Treatment limited secondary to medical complications (Comment) Diagnosis: impaired functional mobility and activity tolerance Rehab Potential: Good, to achieve stated therapy goals Barriers to Discharge: Comorbidities Eval Complexity History Profile: 1 - 2 personal factors and/or comorbidities Clinical Presentation: Evolving clinical presentation with changing characteristics Clinical Decision Making: Moderate complexity PT Recommendations Discharge Destination: Subacute rehab Discharge Equipment: Defer to facility Plan Planned PT Interventions Balance training, Bed mobility training, Gait training, Transfer training, Strengthening, Postural re-education, Functional Mobility, Neuromuscular re-education PT Frequency 2 - 5 times per week PT Duration 2 weeks Goals PT GOAL DETAILS Time Frame PT Goal 1: Patient will perform bed mobility independently. 2 weeks PT Goal 2: Patient will perform sit to stand transfers independently. 2 weeks PT Goal 3: Patient will ambulate 150??? with a RW and supervision for safety. 2 weeks PT Goal 4: Patient and/or caregiver will verbalize and/or demonstrate understanding of discharge recommendation, safety recommendations and home exercise program. 2 weeks Written by Rk Mistry on 07/28/22 at 2:15 PM. * Progress Notes - Michelle Gold - 07/28/2022 10:59 AM EST Occupational Therapy Evaluation Patient Name: Mayo Jain Today's Date: 07/28/2022 OT Discharge Recommendations: Subacute rehab Equipment Recommended: Defer to facility History Mayo Jain is 62 y.o. male admitted 07/27/2022 for work-up of Subdural hematoma without coma. Problem List Active Hospital Problems Diagnosis Date Noted Subdural hematoma without coma 07/27/2022 Chest pain 07/27/2022 Procedures Past Medical History Patient has a past medical history of Abnormal weight gain, Asthma, Cellulitis of unspecified finger, Cellulitis of unspecified part of limb, Cellulitis, unspecified, Chronic kidney disease, Diabetesmellitus (CMS/HCC), Diabetic polyneuropathy ([facility]), Encounter for general adult medical examination without abnormal findings, GERD (gastroesophageal reflux disease), Hyperlipidemia, Hypertension,Osteomyelitis ([facility]), Personal history of other endocrine, nutritional and metabolic disease, and Type 2 diabetes mellitus ([facility]). Past Surgical History Patient has a past surgical history that includes Toe amputation (Left) and cardiac stent. Precautions Medical Precautions: Fall precautions Subjective Please dont let them send me back to that snf. It isnt safe there. Participants in Care Family/Caregiver Present: No Hospital Internship: Not Applicable Presentation Oxygen Therapy: None (Room air) Lines and Tubes: Intravenous access, Telemetry Pre-Session: Sitting in chair, Lines intact, Chair alarm Pre-Session Comments: RN approved of session Post-Session: Sitting in chair, Lines intact, Chair alarm, Call light in reach Post-Session Comments: all needs met Home Living/Set-up Home Type: [facility] Home Adaptive Equipment: Cane Home Living Comments: Patient with difficulty providing insight into PLOF. Per EMR patient has had multiple falls in his snf and patient stated he had been falling more often. He also reports he has to be independent at his group ohome including showers and all ADL's. Prior Level of Function History of Falls: Yes Patient/Family Goals Statement Please dont let them send me back to that snf. It isnt safe there. Objective Pain No pain. Delirium Screening Sharif Agitation Sedation Scale (RASS): Drowsy Confusion Assessment Method-ICU (CAM-ICU/PCAM-ICU) Feature 3: Altered Level of Consciousness: Positive Cognition Overall Cognitive Status: Impaired Arousal/Alertness: Inconsistent responses to stimuli Mood/Behavior: Anxious, Impulsive Orientation Level: Oriented to person, Oriented to time, Oriented to place Single Step Commands: With increased time, With repetition, 75% of the time Multi-Step Commands: 50% of the time, With increased time, With repetition Method of Communication: Verbal Right Upper Extremity Examination RUE ROM Assessment RUE Assessment: Within Functional Limits Manual Muscle Testing - RUE: Within functional limits Sensation Light Touch: Right Upper Extremity: Intact Left Upper Extremity Examination LUE ROM Assessment LUE Assessment: Within Functional Limits Manual Muscle Testing - LUE: Within functional limits Sensation Light Touch: Left Upper Extremity: Intact Right Lower Extremity Examination RLE ROM Assessment RLE Assessment: Within Functional Limits Manual Muscle Testing - RLE: Within functional limits Sensation Light Touch: Right Lower Extremity: Mild impairment Left Lower Extremity Examination LLE ROM Assessment LLE Assessment: Within Functional Limits Manual Muscle Testing: Within functional limits Sensation Light Touch: Left Lower Extremity: Moderate impairment Bed Mobility Bed Mobility Interventions: at chair level upon arrival. Transfers Transfer Exam: Sit to stand Level of [place]: Minimum assist (75% patient's effort) Physical/Nonphysical Assist: Verbal Cues, 1 person + 1 person to manage equipment Assistive Device: Walker, rolling Toilet Transfer Level of [place]: Minimum assist (75% patient's effort) Physical/Nonphysical Assist: Verbal Cues, Additional assist utilized for safety Type of Transfer: Ambulation Assistive Device: Grab bar, Walker, rolling Functional Mobility Device: Rolling walker Assistance: Minimum assistance, Moderate verbal cues, Additional assist needed for line management Distance : 15 feet x2 Ambulation Comments: Patient is highly distractable and requires constant cues for safety. Balance Static Sitting Balance Static Sitting-Level of Assistance: Standby assist Dynamic Sitting Balance Level of Assistance: Standby assisst Static Standing Balance Static Standing-Level of Assistance: Minimum assistance Dynamic Standing Balance Dynamic Standing Level of Assistance: Minimum assistance Participation in Functional Tasks: Minimum assistance Self-Care Interventions Self Care/Home Management (ADLs) Time Entry: 15 Self-Care Interventions: In addition to initial OT assessment, patient participated in X15 MIN ADL retraining. Grooming Grooming Level of Assistance: Contact guard, Setup, Minimal verbal cues Grooming Where Assessed: Standing sinkside Grooming Interventions: Patient stood at sink with CGA x1 for grooming tasks. Seated rest break required following 2 min standing increments. UE Dressing UE Dressing Level of Assistance: Minimum assistance, Setup UE Dressing Where Assessed: Chair level UE Dressing Interventions: adjusting gown. Lower Extremity Dressing Sock Level of Assistance: Dependent LE Dressing Where Assessed: Chair level LE Dressing Interventions: donning socks. Toileting Toileting Level of Assistance: Maximum assistance Where Assessed: Toilet Toileting Interventions: Max A required for hygiene and clothing management following BM Self-Care CARE Tool Performance SELF-CARE ITEMS CARE SCORE Eating 5 Oral Hygiene 3 Toileting Hygiene 2 Shower/Bathe Self 88 Upper Body Dressing 3 Lower Body Dressing 1 Putting On / Taking Off Footwear 1 CARE Tool Performance Score Peres Score Assist Level Description 6 Independent Patient completes the activity by him/herself with no assistance from a helper. 5 Set-up or Clean-up Assistance [place] sets up or cleans up; patient completes activity. [place] assists only prior to or following the activity. 4 Supervision or touching assistance [place] provides verbal cues and/or touching/steadying and/or contact guard assistance as patient completes activity. Assistance may be provided throughout the activity or intermittently. 3 Partial/Moderate Assistance [place] does LESS THAN HALF the effort. [place] lifts, holds or supports trunk or limbs, but provides less than half the effort. 2 Substantial/Maximal Assistance [place] does MORE THAN HALF the effort. [place] lifts or holds trunkor limbs and provides more than half the effort. 1 Dependent [place] does ALL of the effort. Patient does none of the effort to complete the activity. Or, the assistance of 2 or more helpers is required for the patient to complete the activity. Activity Not Attempted Values 7 Patient refused. 9 Not applicable - Not attempted and the patient did not perform this activity prior to the currentillness, exacerbation, or injury. 10 Not attempted due to environmental limitations (e.g., lack of equipment, weather constraints) 88 Not attempted due to medical condition or safety concerns Standardized Assessments [place] Index Feeding: Needs help cutting, spreading butter, etc., or requires modified diet Bathing: Dependent Grooming: Independent face/hair/teeth/shaving (implements provided) Dressing: Needs help but can do about half unaided Bowels: Continent Bladder: Continent Toilet Use: Needs some help but can do some things alone Transfers (Bed to Chair and Back): Minor help (verbal or physical) Mobility (on Level Surfaces): Immobile or < 50 yards Stairs: Unable Total Score: 50 Standardized Assessments [place] Index Feeding: Needs help cutting, spreading butter, etc., or requires modified diet Bathing: Dependent Grooming: Independent face/hair/teeth/shaving (implements provided) Dressing: Needs help but can do about half unaided Bowels: Continent Bladder: Continent Toilet Use: Needs some help but can do some things alone Transfers (Bed to Chair and Back): Minor help (verbal or physical) Mobility (on Level Surfaces): Immobile or < 50 yards Stairs: Unable Total Score: 50 Assessment Patient participated well throughout OT assessment. Patient with decreased over- all attention to task and safety awareness throughout session requiring constant redirection. Recommended continued skilled OT services to further address deficits. OT Findings: Impaired ADL performance, Decreased upper extremity strength, Impaired functional mobility, Impaired IADL performance, Impaired judgment during ADL, Decreased endurance/ventilation/gas exchange, Impaired executive function, Impaired balance, Impaired fine motor control/coordination, Impaired cognition Evaluation/Treatment Tolerance: Patient limited by pain, Patient limited by fatigue Rehab Potential: Good, to achieve stated therapy goals Demonstrates Need for Referral to Another Service: Social work (Patient stated please dont let them send me back to that snf. It's not safe there. ) Eval Complexity Occupational Profile: Review of medical/therapy records and extensive additional review of physical, cognitive, or psychosocial history Performance Deficits: Activities of daily living (ADLs), Instrumental activities of daily living (IADLs), Rest and sleep, Leisure, Process skills, Body functions, Routines, Personal, Physical Clinical Decision Making: Moderate Overall Eval complexity: Moderate OT Recommendations Discharge Destination: Subacute rehab Discharge Equipment: Defer to facility Demonstrates Need for Referral to Another Service: Social work (Patient stated please dont let them send me back to that snf. It's not safe there. ) Plan Planned OT Interventions ADL retraining, IADL retraining, Balance training, Bed mobility Training, ROM, Strengthening, Stretching, Transfer training, Functional mobility, Cognitive retraining OT Frequency 2 - 5 times per week OT Duration 2 weeks Goals OT GOAL DETAILS Time Frame OT Goal 1: Patient will follow multistep commands 100% of the time without cue 2/2 sessions. 2 weeks OT Goal 2: Patient will perform ambulatory level transfers to/from bed/chair/toilet with SBA x1 at rwx level. 2 weeks OT Goal 3: Patient will complete all aspects of toileting with SBA x1. 2 weeks OT Goal 4: Patient will tolerate functional dynamic standing endurance actvity at sink level >8 MIN with SBA x1. 2 weeks Written by Michelle Gold on 07/28/22 at 2:13 PM. * Consults - Araceli Pack - 07/28/2022 9:45 AM ESTAssociated Order(s): IP CONSULT TO NUTRITION SERVICES Adult Nutrition Evaluation Note Mayo Jain 62 y.o. male CSN: [id number] Room/Bed 211/211A Nutrition evaluation type: assessment Reason for evaluation: provider consult Hospital course: 62 yo male admit after fall, concern for SDH. Past medical/ surgical history: Past Medical History: Diagnosis Date Abnormal weight gain Abnormal weight gain Asthma Cellulitis of unspecified finger Cellulitis of unspecified finger Cellulitis of unspecified part of limb Cellulitis of hand Cellulitis, unspecified Cellulitis Chronic kidney disease Diabetes mellitus ([facility]/HCC) Diabetic polyneuropathy ([facility]) Encounter for general adult medical examination without abnormal findings Normal routine physical examination GERD (gastroesophageal reflux disease) Hyperlipidemia Hypertension Osteomyelitis ([facility]) Personal history of other endocrine, nutritional and metabolic disease History of type 2 diabetes mellitus Type 2 diabetes mellitus ([facility]) Past Surgical History: Procedure Laterality Date CARDIAC STENT TOE AMPUTATION Left Partial toe Social history: Lives in a snf Additional comments: Vitals and Basic Assessment: BP: 108/69 Temp: 36.7 ??C (98 ??F) Oxygen Therapy: None (Room air) Carmela Coma Scale Score: 15 Moises/Cubbin Pressure Risk Score: 38 Edema: Generalized Skin: Finger wound Allergies: NKFA Medications: acetaminophen, 500 mg, Oral, q6h MED atorvastatin, 80 mg, Oral, Nightly carvedilol, 12.5 mg, Oral, BID with meals citalopram, 20 mg, Oral, Daily famotidine, 20 mg, Oral, BID insulin lispro, 0-5 Units, Subcutaneous, TID with meals insulin lispro, 0-3 Units, Subcutaneous, Twice at night magnesium sulfate, 2 g, Intravenous, Once Meds were reviewed: Yes Labs: Lab Results Component Value Date GLUCOSE 115 (H) 07/27/2022 CALCIUM 8.9 07/27/2022 NA 127 (L) 07/27/2022 NA 130 (L) 07/27/2022 K 4.5 07/27/2022 CO2 22 07/27/2022 CL 94 (L) 07/27/2022 BUN 20 07/27/2022 CREATININE 1.11 07/27/2022 Lab Results Component Value Date HGBA1C 6.2 (H) 06/13/2022 Anthropometrics: Height: 167.6 cm (5' 6 ) Weight: 92.4 kg (203 lb 11.3 oz) BMI (Calculated): 32.89 Weight Evaluation: Obese-Class 1 (BMI 30-34.9) [place] Body Weight (kg): 64.5 Percent [place] Body Weight: 143 Adjusted Body Weight (kg): 71.5 Estimated Needs: Kcal/ K Kcal Provided: 2145 Kcal Needs Based On: Adjusted weight Current Nutrition Intake: Diet Order: Adult Diet Diet Texture: Regular Adult Carbohydrate Restriction: Consistent CHO 2 (4626-8811 Armond, 80 g/meal) Percent Meals Eaten (%): establishing intakes Diet Experience and Nutrition History: Diet Education Provided: Will monitor Pertinent home medications: spironolactone Nutrition Focused Physical Exam: Unable to Complete Exam: Weekend coverage Physical exam performed on (date): Assessment of Malnutrition: Nutrition Problem: Inadequate energy intake related to ?appetite as evidenced by establishing intakes. Status of Nutrition Diagnosis: New Nutrition Interventions and Recommendations: - Continue CC2 diet - Adding boost glucose control BID Nutrition Monitoring and Goals: - PO intakes >75% of meals Acuity Level: 3 Araceli Pack * Progress Notes - Handy Retana MD - 07/28/2022 9:26 AM EST Neurosurgery Consult Follow-up Note History, exam, and imaging review with attending and discussed on rounds this morning. Mayo Jain is a 62 y.o. male presenting with concern for SDH. Exam: GCS (EMV): 465 Awake, alert, oriented Follows commands appropriately 5/5 - CTH reviewed, appears to be meningioma - can follow up with Dr. Khan in 4 weeeks with MRI w/w/o contrast - hold Brilinta for 2 weeks - okay for DVT prophylaxis - Rest of care per primary team - No further neurosurgical intervention required. Will sign off. - Thank you for allowing us to participate in the care of this patient. Please call with any questions or concerns. [phone] Thank you for allowing us to participate in the care of this patient. Please call with any questions or concerns. Otis Retana MD [facility] Department of Neurosurgery PGY-3 Resident [phone] Cosigned by Matt Cali MD at 07/28/2022 10:34 AM EST Associated attestation - Matt Cali MD - 07/28/2022 10:34 AM EST Signature Only * H&P - Casandra Cadena MD - 07/27/2022 9:04 PM ESTAssociated Order(s): Consult to Trauma Surgery Trauma Alert? No Consult to Trauma Surgery Consult performed by: Casandra Cadena MD Consult ordered by: Jani Gaspar MD Time of Consultation: 07/27/2022 8:30 Time of Trauma Evaluation: 07/27/2022 9:00 Arrival Date: 07/27/2022 Arrival Time: 13:00 Referring Hospital: [facility] Injury Date: 07/27/2022 Transport Mode: Mode of Arrival: Ambulance Mechanism of Injury Fall Distance Unknown presumed standing Farm Related Injury: no Work Related Injury: no History Of Present Illness Mayo Jain is a 62 y.o. male presenting as a transfer from [facility] secondary to a fall on blood thinners. Patient has a past medical history coronary artery disease status post stentplacement, diabetes mellitus type 2 with neuropathy, asthma, GERD and dyslipidemia. Patient lives in a snf and has had multiple falls over the past few weeks. Patient reportedly fell this morning and hit his head on a door frame. Patient is a poor historian and further history is garnered from documentation sent with the patient. The patient was evaluated at [facility] after the fall complaining of a headache. Patient had a CT scan that demonstrated subdural hematoma and left frontoparietal cortex as well as a parafalcine subdural hemorrhage with mild [id number] midline shift. Patient was transferred to emergency room for further evaluation by Neurosurgery. Patient takesBrilinta. Patient currently complaining of headache, and chest pain. Notable, patient is on a beta drea outpatient. Old Chart Reviewed: yes Total fluids given prior to arrival unknown Loss of Consciousness: no Past Medical History He has a past medical history of Abnormal weight gain, Asthma, Cellulitis of unspecified finger, Cellulitis of unspecified part of limb, Cellulitis, unspecified, Chronic kidney disease, Diabetes mellitus (CMS/HCC), Diabetic polyneuropathy (CMS/HCC), Encounter for general adult medical examination wi out abnormal findings, GERD (gastroesophageal reflux disease), Hyperlipidemia, Hypertension, Osteomyelitis (CMS/HCC), Personal history of other endocrine, nutritional and metabolic disease, and Type 2 diabetes mellitus (CMS/HCC). Reviewed as documented above Surgical History He has a past surgical history that includes Toe amputation (Left) and cardiac stent. Reviewed as documented above Family History Family History Problem Relation Name Age of Onset Diabetes Mother Reviewed as documented above Social History He reports that he has never smoked. He has never used smokeless tobacco. He reports that he does not currently use alcohol. He reports that he does not use drugs. Reviewed as documented above Allergies Fluogen [influenza virus vaccine] and Morphine Reviewed as documented above Medications Current Facility-Administered Medications Medication Dose Route Frequency Provider Last Rate Last Admin acetaminophen (Tylenol) tablet 500 mg 500 mg Oral q6h MED Casandra Cadena MD 500 mg at 07/27/22 2341 atorvastatin (Lipitor) tablet 80 mg 80 mg Oral Nightly Casandra Cdaena MD 80 mg at 07/27/22 2341 carvedilol (Coreg) tablet 12.5 mg 12.5 mg Oral BID with meals Casandra Cadena MD citalopram (CeleXA) tablet 20 mg 20 mg Oral Daily Casandra Cadena MD glucose (Glutose) 40 % oral gel 15 grams of glucose 15 grams of glucose Sublingual q15 min PRN Casandra Cadena MD Or dextrose 10 % (D10W) bolus 125 mL 12.5 g Intravenous q15 min PRN Casandra Cadena MD dextrose 10 % (D10W) bolus 250 mL 25 g Intravenous q15 min PRN Casandra Cadena MD Or glucose (Glutose) 40 % oral gel 30 grams of glucose 30 grams of glucose Sublingual q15 min PRN Casandra Cadena MD famotidine (Pepcid) tablet 20 mg 20 mg Oral BID Casandra Cadena MD 20 mg at 07/27/22 234 glucagon (human recombinant) injection 1 mg 1 mg Intramuscular q15 min PRN Casandra Cadena MD glucose (Glutose) 40 % oral gel 15 grams of glucose 15 grams of glucose Sublingual q15 min PRN Casandra Cadena MD hydrALAZINE (Apresoline) injection 10 mg 10 mg Intravenous q6h PRN Casandra Cadena MD insulin lispro (Admelog) 100 units/mL injection - Correction - Standard Dose 0-5 Units SubcutaneousTID with meals Casandra Cadena MD insulin lispro (Admelog) injection - Correction - Nighttime Dose 0-3 Units Subcutaneous Twice at night Casadnra Cadena MD ipratropium-albuterol (Duo-Neb) 0.5-2.5 mg/3 mL nebulizer solution 3 mL 3 mL Nebulization q6h PRN Edwin Zapata, labetalol (Normodyne,Trandate) injection 20 mg 20 mg Intravenous q4h PRN Casandra Cadena MD lactated Ringer's infusion 75 mL/hr Intravenous Continuous Casandra Cadena MD 75 mL/hr at 07/27/22 2341 75 mL/hr at 07/27/22 2341 ondansetron ODT (Zofran-ODT) disintegrating tablet 4 mg 4 mg Oral q6h PRN Casandra Cadena MD oxyCODONE (Roxicodone) immediate release tablet 5 mg 5 mg Oral q4h PRN Casandra Cadena MD sodium chloride 0.9 % flush 10 mL 10 mL Intravenous q12h PRN Casandra Cadena MD And sodium chloride 0.9 % flush 10 mL 10 mL Intravenous PRN Casandra Cadena MD Reviewed as documented above Occupational History Employer: No address on file. Negative Immunizations reviewed VACCINE/DOSE DATE Flu 03/28/2020 Tetanus 11/14/1998 Pneumovax Shingles Review of Systems A 14 point review of systems was reviewed and is negative except: Complaints of right hip and rightthigh pain, chest pain and shortness of breath Physical Exam Physical exam GENERAL: Patient was in no distress. Awake, alert and responsive when stimulated. GCS 14 due to confusion HEENT: Atraumatic, normocephalic. Pupils were equally round and reactive to light with extraocular movements intact. No hemotympanum. MAXILLOFACIAL: Midface stable, no malocclusion. NECK: No C-spine tenderness, trachea midline, no penetrating injuries or lacerations CHEST: Symmetric expansion, non labored; no crepitus; chest nontender to palpation, no penetrating wounds PULM: Clear to auscultation bilaterally. CV: Regular rate and rhythm without obvious murmur ABD: soft, non-distended, no penetrating wounds, no abrasions, no seat belt sign. No rebound or guarding. Minimally TTP. PELVIS: Stable to anterior-posterior and lateral compression, no tenderness to palpation Musculoskeletal: Strength equivalent in 4 extremities, good ROM, sensation intact. No obvious deformities of trunk or limbs, no active bleeding. TTP of the right hip and the right thigh. VASCULAR: Strongly palpable radial pulses bilaterally weak DP pulses with brisk less than 2 second capillary refill. Left toe is missing NEURO: CN 2-12 grossly intact and symmetrical bilaterally. No focal neurological defects. BACK: No tenderness, step offs, hematoma, or deformities to the C,T,L spine Last Recorded Vitals Blood pressure 134/60, pulse 83, temperature 37 ??C (98.6 ??F), temperature source Oral, resp. rate18, height 1.676 m (5' 6 ), weight 91.6 kg (201 lb 15.1 oz), SpO2 100 %. Carmela [place] Coma Scale Best Eye Response: Spontaneous Best Verbal Response: Oriented Best Motor Response: Follows commands [place] Coma Scale Score: 15 Intubated No Recent Results Labs in last 18 hours CBC WBC 10.96 (H) Hb 9.3 (L) Plt 335 Hct 26.9 (L) ANC 8.04 (H) INR 1.3 (H), PTT ??, Anti-Xa ?? BMP Na 130 (L); 127 (L) Cl 94 (L) BUN 20 Glu 115 (H) K 4.5 Co2 22 Cr 1.11 Ca 8.9 iCa 4.7 Mg 1.4 (L), Phos ?? Lactate ?? LFT AST 26 AlkPhos 166 (H) T Prot 7.7 ALK 16 Bili 0.8 Alb ?? D.Bili ?? Radiology FAST:Not Done Images associated: N/A Plain Films: No pelvis fracture CT Scans: CTH from OSH read reviewed and notable for extra axial hemorrhage Angiography: None Impression: Mayo Jain is a 62 yom with history of T2DM, CAD s/p PCI with stents on Brilinta presenting with SDH. We will admit for monitoring and follow up cardiac workup, Xrs and CT head. Medical Problems Problem List * (Principal) Subdural hematoma Overview Addendum 07/28/2022 12:29 AM by Casandra Cadena MD NSG consulted Admit for monitoring Repeat CTH in 6 hours - completed and followed up Hold therapeutic AC/AP Finger infection Diabetes mellitus type 2, insulin dependent (CMS/HCC) (Chronic) Overview Signed 07/27/2022 9:46 PM by Casandra Cadnea MD Sliding scale Class 2 severe obesity due to excess calories with serious comorbidity and body mass index (BMI) of36.0 to 36.9 in adult ([facility]) (Chronic) Overview Signed 07/27/2022 9:47 PM by Casandra Cadena MD Complicates care Coronary artery disease involving assiniboine and sioux coronary artery of assiniboine and sioux heart without angina pectoris (Chronic) HTN (hypertension) (Chronic) Overview Signed 07/27/2022 9:50 PM by Casandra Cadena MD PRN anti-hypertensives Gastroesophageal reflux disease without esophagitis (Chronic) Overview Signed 07/27/2022 9:50 PM by Casandra Cadena MD Pepcid Dyslipidemia (Chronic) Overview Signed 07/27/2022 9:50 PM by Casandra Cadena MD Outpatient statin Mood disorder ([facility]) (Chronic) Mild asthma without complication (Chronic) Hypoglycemia Felon of finger Normocytic anemia Hypomagnesemia Chest pain Overview Signed 07/27/2022 9:46 PM by Casandra Cadena MD - EKG and troponins ordered Plan: SGT 1 progressive admit Casandra Cadena MD Cosigned by Edwin Zapata DO at 08/05/2022 11:27 PM EDT Associated attestation - Edwin Zapata DO - 08/05/2022 11:27 PM EDT 0400 Pt seen / examined. Case D/W residents, students. Agree w/ plan. Any labs, imagimg, and bedside data reviewed. Time spent is separate from procedures. * Consults - Heather Lugo MD - 07/27/2022 2:50 PM ESTAssociated Order(s): IP CONSULT TO NEUROSURGERY Reason For Consult SDH Requesting Service: ED Requested Date/Time: 07/27/2022 2:50 PM History Of Present Illness Mayo Jain is a 62 y.o. male presenting with left SDH. Patient has history of multiple falls, DM, CAD, cardiac stents, on Brilinta. He fell this morning, hitting his head on door frame. Patient is a poor historian. But he states that he has been falling quite frequently because of dizziness.He has had workup for this at outside hospital but is unsure of the results/details. He complains of headaches but denies any nausea or vomiting, vision changes, focal weakness, numbness/tingling, orother focal neurological deficits. Past Medical History He has a past medical history of Abnormal weight gain, Asthma, Cellulitis of unspecified finger, Cellulitis of unspecified part of limb, Cellulitis, unspecified, Chronic kidney disease, Diabetes mellitus (CMS/HCC), Diabetic polyneuropathy (CMS/HCC), Encounter for general adult medical examination wi thout abnormal findings, GERD (gastroesophageal reflux disease), Hyperlipidemia, Hypertension, Osteomyelitis (CMS/HCC), Personal history of other endocrine, nutritional and metabolic disease, and Type 2 diabetes mellitus (CMS/[facility]). Surgical History He has a past surgical history that includes Toe amputation (Left) and cardiac stent. Family History Family History Problem Relation Name Age of Onset Diabetes Mother Social History He reports that he has never smoked. He has never used smokeless tobacco. He reports that he does not currently use alcohol. He reports that he does not use drugs. Medications No current facility-administered medications for this encounter. Current Outpatient Medications Medication Sig Dispense Refill acetaminophen (Tylenol) 500 MG tablet Take 1,000 mg by mouth every 6 (six) hours if needed. albuterol (Ventolin HFA) 108 (90 Base) MCG/ACT inhaler Inhale 2 puffs every 4 (four) hours if needed for wheezing. amitriptyline (Elavil) 10 MG tablet Take 10 mg by mouth every night. aspirin 81 MG EC tablet Take 81 mg by mouth 1 (one) time each day. atorvastatin (Lipitor) 80 MG tablet Take 80 mg by mouth 1 (one) time each day. carvedilol (Coreg) 12.5 MG tablet Take 12.5 mg by mouth 2 (two) times a day with meals. citalopram (CeleXA) 20 MG tablet Take 20 mg by mouth 1 (one) time each day. dilTIAZem CD (Cardizem CD) 120 MG 24 hr capsule Take 120 mg by mouth 1 (one) time each day. Fluticasone Furoate-Vilanterol (Breo Ellipta) 100-25 MCG/ACT aerosol powder Inhale 1 puff. hydroCHLOROthiazide (HYDRODiuril) 25 MG tablet Take 25 mg by mouth 1 (one) time each day. Icosapent Ethyl (Vascepa) 1 g capsule Take 1 capsule by mouth 2 (two) times a day with meals. insulin aspart protamine-insulin aspart (NovoLOG Mix 70-30) (70-30) 100 UNIT/ML injection vial Inject under the skin 2 (two) times a day with meals. 30 units with breakfast and 40 units with supper isosorbide mononitrate ER (Imdur) 120 MG 24 hr tablet Take 120 mg by mouth 1 (one) time each day. Do not crush or chew. lisinopril 5 MG tablet Take 5 mg by mouth 1 (one) time each day. pantoprazole (Protonix) 40 MG EC tablet Take 40 mg by mouth 1 (one) time each day before breakfast.Do not crush, chew, or split. ranolazine (Ranexa) 1000 MG 12 hr tablet Take 1 tablet by mouth 2 (two) times a day. spironolactone (Aldactone) 25 MG tablet Take 25 mg by mouth 1 (one) time each day. ticagrelor (Brilinta) 90 MG tablet Take 90 mg by mouth 2 (two) times a day. Allergies Fluogen [influenza virus vaccine] and Morphine Review of Systems 14 point review of systems was performed and was negative except as noted per HPI. Physical Exam GEN: well developed, no acute distress HEENT: normocephalic, atraumatic, no scleral icterus, oropharynx clear PULM: clear to auscultation bilaterally, no increased work of breathing, normal effort CV: normal rate and regular rhythm, no gallops/murmurs/rubs ABD: soft, non-tender, non-distended MSK: no joint swelling, normal range of motion SKIN: warm and dry, capillary refill <2 seconds PSYCHE: normal mood and affect Neuro Exam GCS (EMV): 465 Awake, alert, oriented Follows commands appropriately Speech clear PERRL, EOMI CN 2-12 grossly intact No drift Strength 5/5 throughout Sensation intact throughout Last Recorded Vitals Visit Vitals BP 127/86 (BP Location: Right arm, Patient Position: Lying) Pulse 76 Temp 36.6 ??C (97.9 ??F) (Oral) Resp 18 Ht 1.676 m (5' 6 ) Wt 91.6 kg (201 lb 15.1 oz) SpO2 100% BMI 32.59 kg/m?? Smoking Status Never BSA 2.07 m?? Labs No lab exists for component: ALB Imaging I personally reviewed CT head w/o contrast demonstrates left frontal convexity SDH with focal mass effect causing compression of left lateral ventricle. No significant midline shift. Assessment and Plan Mayo Jain is a 62 y.o. male presenting with acute left SDH. Assessment/Plan Active Problems: There are no active Hospital Problems. - No acute neurosurgical intervention - NPO@MN - Repeat CTH in 6 hours - Hold therapeutic AC/AP - Recommend further work-up for frequent falls - NSGY will continue to follow Thank you for allowing us to participate in the care of this patient. Please call with any questions or concerns. Heather Lugo MD Resident Physician, PGY-2 Department of Neurosurgery [facility] Pager #[phone] Cosigned by Matt Cali MD at 07/28/2022 10:14 AM EST Associated attestation - Matt Cali MD - 07/28/2022 10:14 AM EST Signature Only * ED Provider Notes - Maggy Sands MD - 07/27/2022 1:07 PM EST HPI Chief Complaint Patient presents with Fall Mayo Jain is a 62 y.o. male presenting as a transfer from [facility] secondary to a fall on blood thinners. Patient has a past medical history coronary artery disease status post stent placement, diabetes mellitus type 2 with neuropathy, asthma, GERD and dyslipidemia. Patient lives in a snf and has had multiple falls over the past few weeks. Patient reportedly fell this morning and hit his head on a door frame. Patient is a poor historian and further history is garnered fromdocumentation sent with the patient. The patient was evaluated at [facility] after the fall complaining of a headache. Patient had a CT scan that demonstrated subdural hematoma and left frontop arietal cortex as well as a parafalcine subdural hemorrhage with mild [id number]-fv-[id number] midline shift. Patient was transferred to emergency room for further evaluation by Neurosurgery. Patient takes Brilinta. Patient currently complaining of headache, denies vision changes, ringing in the ears, shortness of breath, chest pain, nausea/vomiting, abdominal pain, bowel or bladder dysfunction. Carmela Coma Scale Score: 15 Patient History Past Medical History: Diagnosis Date Abnormal weight gain Abnormal weight gain Asthma Cellulitis of unspecified finger Cellulitis of unspecified finger Cellulitis of unspecified part of limb Cellulitis of hand Cellulitis, unspecified Cellulitis Chronic kidney disease Diabetes mellitus ([facility]) Diabetic polyneuropathy ([facility]) Encounter for general adult medical examination without abnormal findings Normal routine physical examination GERD (gastroesophageal reflux disease) Hyperlipidemia Hypertension Osteomyelitis ([facility]) Personal history of other endocrine, nutritional and metabolic disease History of type 2 diabetes mellitus Type 2 diabetes mellitus ([facility]) Past Surgical History: Procedure Laterality Date CARDIAC STENT TOE AMPUTATION Left Partial toe Family History Problem Relation Name Age of Onset Diabetes Mother Tobacco Use Smoking status: Never Smokeless tobacco: Never Substance Use Topics Alcohol use: Not Currently Drug use: Never Immunization History Immunization History: reviewed Allergies: Allergies Allergen Reactions Fluogen [Influenza Virus Vaccine] Itching Morphine Itching Review of Systems Review of Systems Constitutional: Negative for chills and fever. HENT: Negative for ear pain and sore throat. Eyes: Negative for pain and visual disturbance. Respiratory: Negative for cough and shortness of breath. Cardiovascular: Negative for chest pain and palpitations. Gastrointestinal: Negative for abdominal pain and vomiting. Genitourinary: Negative for dysuria and hematuria. Musculoskeletal: Negative for arthralgias and back pain. Skin: Negative for color change and rash. Neurological: Positive for headaches. Negative for seizures, syncope, facial asymmetry, speech difficulty and numbness. All other systems reviewed and are negative. Physical Exam ED Triage Vitals [07/27/22 1326] Temp Heart Rate Resp BP 36.6 ??C (97.9 ??F) 76 18 127/86 SpO2 Temp Source Heart Rate Source Patient Position 100 % Oral -- Lying BP Location FiO2 (%) Right arm -- Physical Exam Vitals and nursing note reviewed. Constitutional: General: He is not in acute distress. Appearance: He is well-developed. He is obese. HENT: Head: Normocephalic and atraumatic. Right Ear: Ear canal and external ear normal. Left Ear: Ear canal and external ear normal. Nose: Nose normal. Mouth/Throat: Mouth: Mucous membranes are dry. Pharynx: Oropharynx is clear. Eyes: Conjunctiva/sclera: Conjunctivae normal. Cardiovascular: Rate and Rhythm: Normal rate and regular rhythm. Pulses: Normal pulses. Heart sounds: Normal heart sounds. No murmur heard. Pulmonary: Effort: Pulmonary effort is normal. No respiratory distress. Breath sounds: Normal breath sounds. Abdominal: Palpations: Abdomen is soft. Tenderness: There is no abdominal tenderness. Musculoskeletal: General: No swelling. Cervical back: Neck supple. No tenderness. Skin: General: Skin is warm and dry. Capillary Refill: Capillary refill takes less than 2 seconds. Neurological: Mental Status: He is alert and oriented to person, place, and time. GCS: GCS eye subscore is 4. GCS verbal subscore is 5. GCS motor subscore is 6. Cranial Nerves: Cranial nerves 2-12 are intact. Sensory: Sensation is intact. 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 ED Course & MDM Clinical Impressions as of 07/27/22 2345 Subdural hematoma without coma, without loss of consciousness, initial encounter ([facility]) ED Disposition: Medical Decision Making Patient was seen and examined with Dr. Dunn. In summary, Mayo Jain is a 62 y.o. male presenting as a transfer from [facility] secondary to a fall on blood thinners. Patient was afebrile, hemodynamically stable, in no respiratory distress, and nontoxic in appearance upon arrival and throughout the entire stay in the ED. On physical examination, poor dentition, EOM intact, PERRLA,alert and oriented x3, GCS 15, CN 2 through 12 intact. Differential diagnosis includes but is not limited to subarachnoid hemorrhage, subdural hematoma, epidural hematoma, intraparenchymal hemorrhage, cervical artery dissection, traumatic brain injury, diffuse axonal injury, and concussion. All of these have been considered and worked-up with laboratory and/or radiographic evaluation to the extent appropriate based on history and physical examination. Ruling out the most morbid conditions drovemy clinical assessment. Orders Placed This Encounter Urine culture - (cath) SARS-CoV-2, Flu A, Flu B, and RSV - Rapid CMP Hepatitis C Antibody - ED ED Protocol - HIV 1/2 Antibody/Antigen Screen Magnesium Blood gas panel, venous CBC w/diff PT-INR Urinalysis with reflex microscopic HIV 1 & 2 Antibody/Antigen Screen Consult to Neurosurgery EKG now - STAT (adult) External notes independently reviewed from [facility] and pertinent for: CT scan report demonstrating extraocular axial hemorrhage with both epidural subdural components along left frontoparietal cortex. Parafalcine subdural hemorrhage with mild [id number] midline shift. Initial Assessment: Patient afebrile, hemodynamically stable, in no acute distress. Interventions/Medications Received in the ED: To units of platelets for Brilinta reversal All ordered laboratory studies independently reviewed and interpreted by myself and pertinent for: WBC 10.96, HGB 9.3, PT/INR 15.2/1.3, sodium 127, magnesium 1.4, COVID negative, urinalysis without acute infection EKG independently reviewed and interpreted and shows: Normal sinus rhythm without ST elevations CT/US imaging independently reviewed and interpreted by myself and shows: [address] head without contrast demonstrated area of increased thickness and local mass effect surrounding area from previously visualized subdural hematoma, no increased midline shift Reassessment: On re-evaluation of patient, patient remained stable and A&O x3. Patient updated with the findings of his laboratory evaluation as well as repeat CT head. Patient was told that neuro surgery would evaluate him for possible intervention. Patient agreeable with this plan. Consults: At this time it was felt that the patient should be evaluated by Neurosurgery for possible intervention and by Trauma surgery for admission. I had an interactive discussion with Neurosurgery consult service who advises platelet transfusion, repeat CT head after 6 hours, admission. I had an interactive discussion with Trauma surgery consult service who advises admission. IMPRESSION: Traumatic Subdural hematoma DISPOSITION: Admit Maggy Sands MD Emergency Medicine, PGY-1 ED Prescriptions None Sign Off Checklist Clinical Impression: Complete ED Disposition: Complete - Maggy Sands MD Resident 07/27/22 [id number] Cosigned by Carmelo Dunn MD at 07/29/2022 4:14 PM EST Associated attestation - Carmelo Dunn MD - 07/29/2022 4:14 PM EST I saw and evaluated the patient with the resident/fellow. I discussed the case with the resident/fellow and agree with the findings and plan as documented. * ED Triage Notes - Handy Johnson RN - 07/27/2022 1:07 PM EST Pt has had multiple falls recently and most recent was this AM and hit head on door frame per EMS. Per OSH, pt has a head bleed. documented in this encounter Plan of Treatment Not on file documented as of this encounter Procedures Procedure Name Priority Date/Time Associated Diagnosis Comments POCT GLUCOSE METER UNSOLICITED RESULTS Routine 08/02/2022 7:36 AM EST POCT GLUCOSE METER UNSOLICITED RESULTS Routine 08/01/2022 8:28 PM EST POCT GLUCOSE METER UNSOLICITED RESULTS Routine 08/01/2022 5:07 PM EST POCT GLUCOSE METER UNSOLICITED RESULTS Routine 08/01/2022 11:52 AM EST POCT GLUCOSE METER UNSOLICITED RESULTS Routine 08/01/2022 7:56 AM EST EXTRA TUBE LAVENDER TOP Routine 08/01/2022 4:50 AM EST EXTRA TUBES Routine 08/01/2022 4:50 AM EST BASIC METABOLIC PANEL, PLASMA Routine 08/01/2022 4:50 AM EST POCT GLUCOSE METER UNSOLICITED RESULTS Routine 07/31/2022 8:07 PM EST POCT GLUCOSE METER UNSOLICITED RESULTS Routine 07/31/2022 5:08 PM EST POCT GLUCOSE METER UNSOLICITED RESULTS Routine 07/31/2022 11:31 AM EST POCT GLUCOSE METER UNSOLICITED RESULTS Routine 07/31/2022 7:50 AM EST POCT GLUCOSE METER UNSOLICITED RESULTS Routine 07/30/2022 8:31 PM EST POCT GLUCOSE METER UNSOLICITED RESULTS Routine 07/30/2022 4:33 PM EST POCT GLUCOSE METER UNSOLICITED RESULTS Routine 07/30/2022 11:42 AM EST POCT GLUCOSE METER UNSOLICITED RESULTS Routine 07/30/2022 11:33 AM EST POCT GLUCOSE METER UNSOLICITED RESULTS Routine 07/30/2022 8:01 AM EST POCT GLUCOSE METER UNSOLICITED RESULTS Routine 07/30/2022 7:55 AM EST POCT GLUCOSE METER UNSOLICITED RESULTS Routine 07/30/2022 6:39 AM EST POCT GLUCOSE METER UNSOLICITED RESULTS Routine 07/30/2022 6:17 AM EST POCT GLUCOSE METER UNSOLICITED RESULTS Routine 07/30/2022 5:50 AM EST CBC W/O DIFFERENTIAL Pending Discharge 07/30/2022 1:15 AM EST MAGNESIUM, PLASMA Pending Discharge 07/30/2022 1:15 AM EST BASIC METABOLIC PANEL, PLASMA Pending Discharge 07/30/2022 1:15 AM EST POCT GLUCOSE METER UNSOLICITED RESULTS Routine 07/29/2022 8:39 PM EST POCT GLUCOSE METER UNSOLICITED RESULTS Routine 07/29/2022 5:16 PM EST POCT GLUCOSE METER UNSOLICITED RESULTS Routine 07/29/2022 11:18 AM EST POCT GLUCOSE METER UNSOLICITED RESULTS Routine 07/29/2022 7:52 AM EST CBC W/O DIFFERENTIAL Routine 07/29/2022 2:48 AM EST BASIC METABOLIC PANEL, PLASMA Routine 07/29/2022 2:48 AM EST POCT GLUCOSE METER UNSOLICITED RESULTS Routine 07/28/2022 5:10 PM EST POCT GLUCOSE METER UNSOLICITED RESULTS Routine 07/28/2022 1:46 PM EST POCT GLUCOSE METER UNSOLICITED RESULTS Routine 07/28/2022 11:52 AM EST SODIUM, URINE, RANDOM Routine 07/28/2022 11:50 AM EST OSMOLALITY, URINE Routine 07/28/2022 11:50 AM EST POCT GLUCOSE METER UNSOLICITED RESULTS Routine 07/28/2022 6:41 AM EST POCT GLUCOSE METER UNSOLICITED RESULTS Routine 07/28/2022 3:12 AM EST POCT GLUCOSE METER UNSOLICITED RESULTS Routine 07/28/2022 12:21 AM EST TROPONIN T, HIGH SENSITIVITY, 2 HOUR, PLASMA Timed 07/27/2022 11:40 PM EST MULTI DRUG RESISTANCE TEST Routine 07/27/2022 11:40 PM EST POCT GLUCOSE METER UNSOLICITED RESULTS Routine 07/27/2022 10:37 PM EST XR FEMUR RIGHT 2+ VIEWS Routine 07/27/2022 10:19 PM EST POCT GLUCOSE METER UNSOLICITED RESULTS Routine 07/27/2022 10:08 PM EST TRANSFUSE PLATELETS STAT 07/27/2022 9 :[address] HEAD WO IV CONTRAST STAT 8:49 PM EST TROPONIN T, HIGH SENSITIVITY, 0 HOUR, PLASMA, REFLEX TO 2 HOUR Routine 07/27/2022 8:41 PM EST OSMOLALITY, SERUM Add-On 07/27/2022 8:4 1 PM EST ECG ADULT STAT 07/27/2022 8:36 PM EST TRANSFUSE PLATELETS STAT 07/27/2022 8 :26 PM EST TYPE AND SCREEN STAT 07/27/2022 7:15 PM EST PREPARE PLATELETS STAT 07/27/2022 6:3 8 PM EST URINALYSIS MICROSCOPIC FOR UA REFLEX STAT 07/27/2022 4:51 PM EST URINALYSIS WITH REFLEX MICROSCOPIC STAT 07/27/2022 4:51 PM EST URINE CULTURE STAT 07/27/2022 4:51 PM EST SARS-COV-2, FLU A, FLU B, AND RSV - RAPID STAT 07/27/2022 3:54 PM EST ED PROTOCOL HIV 1/2 ANTIBODY/ANTIGEN SCREEN W/REFLEX TO HIV 1/2 ANTIBODY DIFFERENTIATION STAT 07/27/2022 3:50 PM EST HIV 1/2 ANTIBODY/ANTIGEN SCREEN WITH REFLEX TO HIV I/II DIFFERENTIATION STAT 07/27/2022 3:50 PM EST HEPATITIS C ANTIBODY - ED W/REFLEX TO HCV QUANT PCR STAT 07/27/2022 3:50 PM EST PROTHROMBIN TIME(PT) / INR STAT 07/27/2022 3:50 PM EST CBC WITH AUTO DIFFERENTIAL STAT 07/27/2022 3:50 PM EST MAGNESIUM, PLASMA STAT 07/27/2022 3:5 0 PM EST BLOOD GAS PANEL, VENOUS STAT 07/27/2022 3:50 PM EST COMPREHENSIVE METABOLIC PANEL, PLASMA STAT 07/27/2022 3:50 PM EST ECG ADULT STAT 07/27/2022 2:46 PM EST documented in this encounter Results * (ABNORMAL) POCT glucose meter (08/02/2022 7:36 AM EST) POCT Glucose 127(H) 74 - 99 mg/dL 08/02/2022 7:40 AM EST [facility] Comment:Accuracy of a glucos e result obtained from a capillary whole blood specimen relies upon adequate, non-compromised capillary blood flow. If the capillary glucose result is not consistent with the patient's clinical signs and symptoms, glucose testing should be repeated with either an arterial or venous sample on the glucometer or sent to the main labortory for testing. Comment 08/02/2022 7:40 AM EST [facility] Neurology Stroke Physician ID Teri Medinabeth Hanna 08/02/2022 7:40 AM EST [facility] Device ID [id number] 08/02/2022 7:40 AM EST [facility] Specimen Type POC Capillary 08/02/2022 7:40 AM EST [facility] Blood Capillary blood specimen / Unknown 08/02/2022 7:36 AM EST 08/02/2022 7:40 AM EST us Son Rojas MD LAB POINT OF CARE TE ST DOCKED DEVICE UNSOLICITED RESULTS Final Result Performing Organization Address [facility] de Phone Number [facility] [address] [place] [address] * (ABNORMAL) POCT glucose meter (08/01/2022 8:28 PM EST) POCT Glucose 141(H) 74 - 99 mg/dL 08/01/2022 8:30 PM EST [facility] Comment:Accuracy of a glucos e result obtained from a capillary whole blood specimen relies upon adequate, non-compromised capillary blood flow. If the capillary glucose result is not consistent with the patient's clinical signs and symptoms, glucose testing should be repeated with either an arterial or venous sample on the glucometer or sent to the main labortory for testing. Comment 08/01/2022 8:30 PM EST [facility] Neurology Stroke Physician ID Mckenzie Rios 08/02/19 8:30 PM EST [facility] Device ID [id number] 08/01/2022 8:30 PM EST [facility] Specimen Type POC Capillary 08/01/2022 8:30 PM EST [facility] Blood Capillary blood specimen / Unknown 08/01/2022 8:28 PM EST 08/01/2022 8:30 PM EST us Son Rojas MD LAB POINT OF CARE TE ST DOCKED DEVICE UNSOLICITED RESULTS Final Result Performing Organization Address City/[facility] Co de Phone Number [facility] [address] [place] [address] * (ABNORMAL) POCT glucose meter (08/01/2022 5:07 PM EST) POCT Glucose 107(H) 74 - 99 mg/dL 08/01/2022 5:10 PM EST [facility] Comment:Accuracy of a glucos e result obtained from a capillary whole blood specimen relies upon adequate, non-compromised capillary blood flow. If the capillary glucose result is not consistent with the patient's clinical signs and symptoms, glucose testing should be repeated with either an arterial or venous sample on the glucometer or sent to the main labortory for testing. Comment 08/01/2022 5:10 PM EST [facility] Neurology Stroke Physician ID Candice Raymundo 08/01/2022 5:10 PM EST [facility] Device ID [id number] 08/01/2022 5:10 PM EST [facility] Specimen Type POC Capillary 08/01/2022 5:10 PM EST [facility] Blood Capillary blood specimen / Unknown 08/01/2022 5:07 PM EST 08/01/2022 5:10 PM EST Son Rojas MD LAB POINT OF CARE TE ST DOCKED DEVICE UNSOLICITED RESULTS Final Result Performing Organization Address City/[facility] Co de Phone Number [facility] [address] [place] [address] * (ABNORMAL) POCT glucose meter (08/01/2022 11:52 AM EST) POCT Glucose 121(H) 74 - 99 mg/dL 08/01/2022 11:55 AM EST [facility] Comment:Accuracy of a glucos e result obtained from a capillary whole blood specimen relies upon adequate, non-compromised capillary blood flow. If the capillary glucose result is not consistent with the patient's clinical signs and symptoms, glucose testing should be repeated with either an arterial or venous sample on the glucometer or sent to the main labortory for testing. Comment 08/01/2022 11:55 AM EST [facility] Neurology Stroke Physician ID Candice Raymundo 08/01/2022 11:55 AM EST [facility] Device ID [id number] 08/01/2022 11:55 AM EST [facility] Specimen Type POC Capillary 08/01/2022 11:55 AM EST [facility] Blood Capillary blood specimen / Unknown 08/01/2022 11:52 AM EST 08/01/2022 11:55 AM EST us oSn Rojas MD LAB POINT OF CARE TE ST DOCKED DEVICE UNSOLICITED RESULTS Final Result Performing Organization Address City/[facility]/ZIP Co de Phone Number [facility] [address] [place] [address] * (ABNORMAL) POCT glucose meter (08/01/2022 7:56 AM EST) POCT Glucose 116(H) 74 - 99 mg/dL 08/01/2022 8:00 AM EST [facility] Comment:Accuracy of a glucos e result obtained from a capillary whole blood specimen relies upon adequate, non-compromised capillary blood flow. If the capillary glucose result is not consistent with the patient's clinical signs and symptoms, glucose testing should be repeated with either an arterial or venous sample on the glucometer or sent to the main labortory for testing. Comment 08/01/2022 8:00 AM EST [facility] Neurology Stroke Physician ID Isabel Back 023 8:00 AM EST [facility] Device ID [id number] 08/01/2022 8:00 AM EST [facility] Specimen Type POC Capillary 08/01/2022 8:00 AM EST [facility] Blood Capillary blood specimen / Unknown 08/01/2022 7:56 AM EST 08/01/2022 8:00 AM EST Son Rojas MD LAB POINT OF CARE TE ST DOCKED DEVICE UNSOLICITED RESULTS Final Result Performing Organization Address City/[facility]/ZIP Co de Phone Number [facility] [address] [place] [address] * Lavender Top (08/01/2022 4:50 AM EST) Pathologist [facility] Extra Hold for add-ons. 08/01/2022 8:01 AM EST [facility] Comment:Auto resulted. Blood Venous blood specimen / Unknown 08/01/2022 4:50 AM EST 08/01/2022 5:17 AM EST us Son Rojas MD LAB BLOOD ORDERABLES Final Res ult [facility] [address] [place] [address] * (ABNORMAL) Basic Metabolic Panel, Plasma (08/01/2022 4:50 AM EST) Pathologist [facility] Glucose, Plasma 124(H) 74 - 99 mg/dL 08/01/2022 5:50 AM EST [facility] BUN, Plasma 11 8 - 23 mg/dL 08/01/2022 5:50 AM EST [facility] Creatinine, Plasma 0.70(L) 0.80 - 1.30 mg/dL 08/01/2022 5:50 AM EST [facility] BUN/Creatinine Ratio 16 08/01/2022 5:50 AM EST [facility] Sodium, Plasma 130(L) 136 - 145 mmol/L 08/01/2022 5:50 AM EST [facility] Potassium, Plasma 4.4 3.7 - 4.8 mmol/L 08/01/2022 5:50 AM EST [facility] Chloride, Plasma 97 97 - 107 mmol/L 08/01/2022 5:50 AM EST [facility] CO2, Plasma 25 22 - 29 mmol/L 08/01/2022 5:50 AM EST [facility] Anion Gap 8 6 - 16 mmol/L 08/01/2022 5:50 AM EST [facility] Total Calcium, Plasma 8.3(L) 8.9 - 10.2 mg/dL 08/01/2022 5:50 AM EST [facility] eGFRcr 102.9 mL/min/1.7 3m*2 08/01/2022 5:50 AM EST [facility] Comment: Reported eGFRcr in mL/min/1.73m2 is based the CKD-EPI 2021 equation that does not use a race coefficient. Effective 12/20/21 our laboratory changed the eGFR calculation to the CKD-EPI 2021 equation from the previously reported eGFR, based on the MDRD equation. ??For comparisons between the two equations, please see laboratory website: ??[email or web address] Blood Venous blood specimen / Unknown Venipuncture / Unknown 08/01/2022 4:50 AM EST 08/01/2022 5:22 AM EST us Amanda Day CERTIFIED CYTOTECHNOLOGIST, DNP LAB BLOOD ORDERABLES Fi nal Result [facility] [address] [place] [address] * (ABNORMAL) POCT glucose meter (07/31/2022 8:07 PM EST) POCT Glucose 134(H) 74 - 99 mg/dL 07/31/2022 8:10 PM EST [facility] Comment:Accuracy of a glucos e result obtained from a capillary whole blood specimen relies upon adequate, non-compromised capillary blood flow. If the capillary glucose result is not consistent with the patient's clinical signs and symptoms, glucose testing should be repeated with either an arterial or venous sample on the glucometer or sent to the main labortory for testing. Comment 07/31/2022 8:10 PM EST [facility] Neurology Stroke Physician ID Winnie Mojica 07/31/2022 8:10 PM EST [facility] Device ID [id number] 07/31/2022 8:10 PM EST [facility] Specimen Type POC Capillary 07/31/2022 8:10 PM EST [facility] Blood Capillary blood specimen / Unknown 07/31/2022 8:07 PM EST 07/31/2022 8:10 PM EST Son Rojas MD LAB POINT OF CARE TE ST DOCKED DEVICE UNSOLICITED RESULTS Final Result [facility] [address] [place] [address] * (ABNORMAL) POCT glucose meter (07/31/2022 5:08 PM EST) [facility] POCT Glucose 124(H) 74 - 99 mg/dL 07/31/2022 5:10 PM EST [facility] Comment:Accuracy of a glucos e result obtained from a capillary whole blood specimen relies upon adequate, non-compromised capillary blood flow. If the capillary glucose result is not consistent with the patient's clinical signs and symptoms, glucose testing should be repeated with either an arterial or venous sample on the glucometer or sent to the main labortory for testing. Comment 07/31/2022 5:10 PM EST [facility] Neurology Stroke Physician ID Sarah Faria 07/31/2022 5:10 PM EST [facility] Device ID [id number] 07/31/2022 5:10 PM EST [facility] Specimen Type POC Capillary 07/31/2022 5:10 PM EST [facility] Blood Capillary blood specimen / Unknown 07/31/2022 5:08 PM EST 07/31/2022 5:10 PM EST Son Rojas MD LAB POINT OF CARE TE ST DOCKED DEVICE UNSOLICITED RESULTS Final Result Performing Organization Address City/[facility] Co de Phone Number [facility] [address] [place] [address] * (ABNORMAL) POCT glucose meter (07/31/2022 11:31 AM EST) POCT Glucose 143(H) 74 - 99 mg/dL 07/31/2022 11:45 AM EST [facility] Comment:Accuracy of a glucos e result obtained from a capillary whole blood specimen relies upon adequate, non-compromised capillary blood flow. If the capillary glucose result is not consistent with the patient's clinical signs and symptoms, glucose testing should be repeated with either an arterial or venous sample on the glucometer or sent to the main labortory for testing. Comment 07/31/2022 11:45 AM EST [facility] Neurology Stroke Physician ID Sarah Faria 07/31/2022 11:45 AM EST [facility] Device ID [id number] 07/31/2022 11:45 AM EST [facility] Specimen Type POC Capillary 07/31/2022 11:45 AM EST [facility] Blood Capillary blood specimen / Unknown 07/31/2022 11:31 AM EST 07/31/2022 11:45 AM EST Son Rojas MD LAB POINT OF CARE TE ST DOCKED DEVICE UNSOLICITED RESULTS Final Result Performing Organization Address City/[facility] Co de Phone Number [facility] [address] [place] [address] * (ABNORMAL) POCT glucose meter (07/31/2022 7:50 AM EST) POCT Glucose 126(H) 74 - 99 mg/dL 07/31/2022 8:15 AM EST [facility] Comment:Accuracy of a glucos e result obtained from a capillary whole blood specimen relies upon adequate, non-compromised capillary blood flow. If the capillary glucose result is not consistent with the patient's clinical signs and symptoms, glucose testing should be repeated with either an arterial or venous sample on the glucometer or sent to the main labortory for testing. Comment 07/31/2022 8:15 AM EST [facility] Neurology Stroke Physician ID Sarah Faria 07/31/2022 8:15 AM EST [facility] Device ID [id number] 07/31/2022 8:15 AM EST [facility] Specimen Type POC Capillary 07/31/2022 8:15 AM EST [facility] Blood Capillary blood specimen / Unknown 07/31/2022 7:50 AM EST 07/31/2022 8:15 AM EST us Son Rojas MD LAB POINT OF CARE TE ST DOCKED DEVICE UNSOLICITED RESULTS Final Result Performing Organization Address [facility] Co de Phone Number [facility] [address] [place] [address] * (ABNORMAL) POCT glucose meter (07/30/2022 8:31 PM EST) [facility] POCT Glucose 149(H) 74 - 99 mg/dL 07/30/2022 8:35 PM EST [facility] Comment:Accuracy of a glucos e result obtained from a capillary whole blood specimen relies upon adequate, non-compromised capillary blood flow. If the capillary glucose result is not consistent with the patient's clinical signs and symptoms, glucose testing should be repeated with either an arterial or venous sample on the glucometer or sent to the main labortory for testing. Comment 07/30/2022 8:35 PM EST [facility] Neurology Stroke Physician ID HarishavelinaAmandaReymundo Maya Jacquie 07/30/2022 8:35 PM EST [facility] Device ID [id number] 07/30/2022 8:35 PM EST [facility] Specimen Type POC Capillary 07/30/2022 8:35 PM EST [facility] Blood Capillary blood specimen / Unknown 07/30/2022 8:31 PM EST 07/30/2022 8:35 PM EST us Son Rojas MD LAB POINT OF CARE TE ST DOCKED DEVICE UNSOLICITED RESULTS Final Result Performing Organization Address City/[facility]/ZIP Co de Phone Number [facility] [address] [place] [address] * (ABNORMAL) POCT glucose meter (07/30/2022 4:33 PM EST) Pathologist [facility] POCT Glucose 155(H) 74 - 99 mg/dL 07/30/2022 4:35 PM EST [facility] Comment:Accuracy of a glucos e result obtained from a capillary whole blood specimen relies upon adequate, non-compromised capillary blood flow. If the capillary glucose result is not consistent with the patient's clinical signs and symptoms, glucose testing should be repeated with either an arterial or venous sample on the glucometer or sent to the main labortory for testing. Comment 07/30/2022 4:35 PM EST [facility] Neurology Stroke Physician ID Casandra Medina 07/30/2022 4:35 PM EST [facility] Device ID [id number] 07/30/2022 4:35 PM EST [facility] Specimen Type POC Capillary 07/30/2022 4:35 PM EST [facility] Blood Capillary blood specimen / Unknown 07/30/2022 4:33 PM EST 07/30/2022 4:35 PM EST Son Rojas MD LAB POINT OF CARE TE ST DOCKED DEVICE UNSOLICITED RESULTS Final Result Performing Organization Address City/State/[facility] Co de Phone Number [facility] [address] [place] [address] * (ABNORMAL) POCT glucose meter (07/30/2022 11:42 AM EST) [facility] POCT Glucose 104(H) 74 - 99 mg/dL 07/31/2022 12:16 AM EST [facility] Comment:Accuracy of a glucos e result obtained from a capillary whole blood specimen relies upon adequate, non-compromised capillary blood flow. If the capillary glucose result is not consistent with the patient's clinical signs and symptoms, glucose testing should be repeated with either an arterial or venous sample on the glucometer or sent to the main labortory for testing. Comment 07/31/2022 12:16 AM EST [facility] Neurology Stroke Physician ID Annabella Mckeon 023 12:16 AM EST [facility] Device ID [id number] 07/31/2022 12:16 AM EST [facility] Specimen Type POC Capillary 07/31/2022 12:16 AM EST [facility] Blood Capillary blood specimen / Unknown 07/30/2022 11:42 AM EST 07/31/2022 12:16 AM EST us Son Rojas MD LAB POINT OF CARE TE ST DOCKED DEVICE UNSOLICITED RESULTS Final Result Performing Organization Address [facility] de Phone Number [facility] [address] [place] [address] * (ABNORMAL) POCT glucose meter (07/30/2022 11:33 AM EST) POCT Glucose 71(L) 74 - 99 mg/dL 07/30/2022 11:35 AM EST [facility] Comment:Accuracy of a glucos e result obtained from a capillary whole blood specimen relies upon adequate, non-compromised capillary blood flow. If the capillary glucose result is not consistent with the patient's clinical signs and symptoms, glucose testing should be repeated with either an arterial or venous sample on the glucometer or sent to the main labortory for testing. Comment 07/30/2022 11:35 AM EST [facility] Neurology Stroke Physician ID Casandra Medina 07/30/2022 11:35 AM EST [facility] Device ID [id number] 07/30/2022 11:35 AM EST [facility] Specimen Type POC Capillary 07/30/2022 11:35 AM EST [facility] Blood Capillary blood specimen / Unknown 07/30/2022 11:33 AM EST 07/30/2022 11:35 AM EST us Son Rojas MD LAB POINT OF CARE TE ST DOCKED DEVICE UNSOLICITED RESULTS Final Result Performing Organization Address City/[facility] Co de Phone Number [facility] [address] [place] [address] * (ABNORMAL) POCT glucose meter (07/30/2022 8:01 AM EST) POCT Glucose 122(H) 74 - 99 mg/dL 07/30/2022 8:20 AM EST [facility] Comment:Accuracy of a glucos e result obtained from a capillary whole blood specimen relies upon adequate, non-compromised capillary blood flow. If the capillary glucose result is not consistent with the patient's clinical signs and symptoms, glucose testing should be repeated with either an arterial or venous sample on the glucometer or sent to the main labortory for testing. Comment 07/30/2022 8:20 AM EST [facility] Neurology Stroke Physician ID Annabella Mckeon 023 8:20 AM EST [facility] Device ID [id number] 07/30/2022 8:20 AM EST [facility] Specimen Type POC Capillary 07/30/2022 8:20 AM EST [facility] Blood Capillary blood specimen / Unknown 07/30/2022 8:01 AM EST 07/30/2022 8:20 AM EST us Son Rojas MD LAB POINT OF CARE TE ST DOCKED DEVICE UNSOLICITED RESULTS Final Result Performing Organization Address City/[facility]/ZIP Co de Phone Number [facility] [address] [place] [address] * (ABNORMAL) POCT glucose meter (07/30/2022 7:55 AM EST) [facility] POCT Glucose 108(H) 74 - 99 mg/dL 07/30/2022 8:00 AM EST [facility] Comment:Accuracy of a glucos e result obtained from a capillary whole blood specimen relies upon adequate, non-compromised capillary blood flow. If the capillary glucose result is not consistent with the patient's clinical signs and symptoms, glucose testing should be repeated with either an arterial or venous sample on the glucometer or sent to the main labortory for testing. Comment 07/30/2022 8:00 AM EST [facility] Neurology Stroke Physician ID Casandra Medina 07/30/2022 8:00 AM EST [facility] Device ID [id number] 07/30/2022 8:00 AM EST [facility] Specimen Type POC Capillary 07/30/2022 8:00 AM EST [facility] Blood Capillary blood specimen / Unknown 07/30/2022 7:55 AM EST 07/30/2022 8:00 AM EST us Son Rojas MD LAB POINT OF CARE TE ST DOCKED DEVICE UNSOLICITED RESULTS Final Result [facility] [address] [place] [address] * (ABNORMAL) POCT glucose meter (07/30/2022 6:39 AM EST) [facility] POCT Glucose 122(H) 74 - 99 mg/dL 07/30/2022 6:45 AM EST [facility] Comment:Accuracy of a glucos e result obtained from a capillary whole blood specimen relies upon adequate, non-compromised capillary blood flow. If the capillary glucose result is not consistent with the patient's clinical signs and symptoms, glucose testing should be repeated with either an arterial or venous sample on the glucometer or sent to the main labortory for testing. Comment 07/30/2022 6:45 AM EST [facility] Neurology Stroke Physician ID Lori Mcgill 07/30/2022 6:45 AM EST [facility] Device ID [id number] 07/30/2022 6:45 AM EST [facility] Specimen Type POC Capillary 07/30/2022 6:45 AM EST [facility] Blood Capillary blood specimen / Unknown 07/30/2022 6:39 AM EST 07/30/2022 6:45 AM EST Son Rojas MD LAB POINT OF CARE TE ST DOCKED DEVICE UNSOLICITED RESULTS Final Result Performing Organization Address [facility] de Phone Number [facility] [address] [place] [address] * (ABNORMAL) POCT glucose meter (07/30/2022 6:17 AM EST) [facility] POCT Glucose 66(L) 74 - 99 mg/dL 07/30/2022 6:20 AM EST [facility] Comment:Accuracy of a glucos e result obtained from a capillary whole blood specimen relies upon adequate, non-compromised capillary blood flow. If the capillary glucose result is not consistent with the patient's clinical signs and symptoms, glucose testing should be repeated with either an arterial or venous sample on the glucometer or sent to the main labortory for testing. Comment 07/30/2022 6:20 AM EST [facility] Neurology Stroke Physician ID Lori Mcgill 07/30/2022 6:20 AM EST [facility] Device ID [id number] 07/30/2022 6:20 AM EST [facility] Specimen Type POC Capillary 07/30/2022 6:20 AM EST [facility] Blood Capillary blood specimen / Unknown 07/30/2022 6:17 AM EST 07/30/2022 6:20 AM EST us Son Rojas MD LAB POINT OF CARE TE ST DOCKED DEVICE UNSOLICITED RESULTS Final Result Performing Organization Address City/[facility] Co de Phone Number [facility] [address] [place] [address] * POCT glucose meter (07/30/2022 5:50 AM EST) POCT Glucose 87 74 - 99 mg/dL 07/30/2022 5:55 AM EST [facility] Comment:Accuracy of a glucos e result obtained from a capillary whole blood specimen relies upon adequate, non-compromised capillary blood flow. If the capillary glucose result is not consistent with the patient's clinical signs and symptoms, glucose testing should be repeated with either an arterial or venous sample on the glucometer or sent to the main labortory for testing. Comment 07/30/2022 5:55 AM EST [facility] Neurology Stroke Physician ID Lori Mcgill 07/30/2022 5:55 AM EST [facility] Device ID [id number] 07/30/2022 5:55 AM EST [facility] Specimen Type POC Capillary 07/30/2022 5:55 AM EST [facility] Blood Capillary blood specimen / Unknown 07/30/2022 5:50 AM EST 07/30/2022 5:55 AM EST us Doug Torres MD LAB POINT OF CARE TE ST DOCKED DEVICE UNSOLICITED RESULTS Final Result Performing Organization Address City/[facility] Co de Phone Number [facility] [address] [place] [address] * Magnesium, Plasma (07/30/2022 1:15 AM EST) Magnesium, Plasma 2.4 1.9 - 2.4 mg/dL 07/30/2022 1:51 AM EST [facility] Blood Venous blood specimen / Unknown Venipuncture / Unknown 07/30/2022 1:15 AM EST 07/30/2022 1:22 AM EST us Adrianna Tiffany Dyer CERTIFIED CYTOTECHNOLOGIST, DNP LAB BLOOD ORDERABLES Fi nal Result [facility] [address] [place] [address] * (ABNORMAL) CBC W/O Differential (07/30/2022 1:15 AM EST) WBC Count 8.86 3.70 - 10.30 10*3/uL LAB HEMATOLOGY METHOD 07/30/2022 1:29 AM EST [facility] RBC Count 2.34(L) 4.60 - 6.10 10*6/uL LAB HEMATOLOGY METHOD 07/30/2022 1:29 AM EST [facility] HGB 7.8(L) 13.7 - 17.5 g/dL LAB HEMATOLOGY METHOD 07/30/2022 1:29 AM EST [facility] HCT 22.7(L) 40.0 - 51.0 % LAB HEMATOLOGY METHOD 07/30/2022 1:29 AM EST [facility] Platelet Count 256 155 - 369 10*3/uL LAB HEMATOLOGY METHOD 07/30/2022 1:29 AM EST [facility] MCV 97 79 - 98 fL LAB HEMATOLOGY METHOD 07/30/2022 1:29 AM EST [facility] MCH 33.3(H) 26.0 - 32.0 pg LAB HEMATOLOGY METHOD 07/30/2022 1:29 AM EST [facility] MCHC 34.4 30.7 - 35.5 g/dL LAB HEMATOLOGY METHOD 07/30/2022 1:29 AM EST [facility] RDW 13.0 11.5 - 14.5 % LAB HEMATOLOGY METHOD 07/30/2022 1:29 AM EST [facility] MPV 9.0 8.8 - 12.5 fL LAB HEMATOLOGY METHOD 07/30/2022 1:29 AM EST [facility] nRBC 0.0 <=0.0 per 100 WBCs LAB HEMATOLOGY METHOD 07/30/2022 1:29 AM EST [facility] Blood Venous blood specimen / Unknown Venipuncture / Unknown 07/30/2022 1:15 AM EST 07/30/2022 1:22 AM EST us Adrianna Dyer CERTIFIED CYTOTECHNOLOGIST, DNP LAB BLOOD ORDERABLES Fi nal Result [facility] [address] [place] [address] * (ABNORMAL) Basic Metabolic Panel, Plasma (07/30/2022 1:15 AM EST) Glucose, Plasma 116(H) 74 - 99 mg/dL 07/30/2022 1:51 AM EST [facility] BUN, Plasma 12 8 - 23 mg/dL 07/30/2022 1:51 AM EST [facility] Creatinine, Plasma 0.75(L) 0.80 - 1.30 mg/dL 07/30/2022 1:51 AM EST [facility] BUN/Creatinine Ratio 16 07/30/2022 1:51 AM EST [facility] Sodium, Plasma 134(L) 136 - 145 mmol/L 07/30/2022 1:51 AM EST [facility] Potassium, Plasma 3.7 3.7 - 4.8 mmol/L 07/30/2022 1:51 AM EST [facility] Chloride, Plasma 104 97 - 107 mmol/L 07/30/2022 1:51 AM EST [facility] CO2, Plasma 21(L) 22 - 29 mmol/L 07/30/2022 1:51 AM EST [facility] Anion Gap 9 6 - 16 mmol/L 07/30/2022 1:51 AM EST [facility] Total Calcium, Plasma 7.1(L) 8.9 - 10.2 mg/dL 07/30/2022 1:51 AM EST [facility] eGFRcr 100.8 mL/min/1.7 3m*2 07/30/2022 1:51 AM EST [facility] Comment: Reported eGFRcr in mL/min/1.73m2 is based the CKD-EPI 2021 equation that does not use a race coefficient. Effective 12/20/21 our laboratory changed the eGFR calculation to the CKD-EPI 2021 equation from the previously reported eGFR, based on the MDRD equation. ??For comparisons between the two equations, please see laboratory website: ??[email or web address] Blood Venous blood specimen / Unknown Venipuncture / Unknown 07/30/2022 1:15 AM EST 07/30/2022 1:22 AM EST us Adrianna Dyer APRN, DNP LAB BLOOD ORDERABLES Fi nal Result Performing Organization Address [facility]/[place] de Phone Number [facility] [address] [place] [address] * (ABNORMAL) POCT glucose meter (07/29/2022 8:39 PM EST) POCT Glucose 124(H) 74 - 99 mg/dL 07/29/2022 8:50 PM EST [facility] Comment:Accuracy of a glucos e result obtained from a capillary whole blood specimen relies upon adequate, non-compromised capillary blood flow. If the capillary glucose result is not consistent with the patient's clinical signs and symptoms, glucose testing should be repeated with either an arterial or venous sample on the glucometer or sent to the main labortory for testing. Comment 07/29/2022 8:50 PM EST [facility] Neurology Stroke Physician ID Nash Epstein 8:50 PM EST [facility] Device ID [id number] 07/29/2022 8:50 PM EST [facility] Specimen Type POC Capillary 07/29/2022 8:50 PM EST [facility] Blood Capillary blood specimen / Unknown 07/29/2022 8:39 PM EST 07/29/2022 8:50 PM EST us Doug Torres MD LAB POINT OF CARE TE ST DOCKED DEVICE UNSOLICITED RESULTS Final Result Performing Organization Address City/[facility]/[place] de Phone Number [facility] [address] [place] [address] * (ABNORMAL) POCT glucose meter (07/29/2022 5:16 PM EST) POCT Glucose 106(H) 74 - 99 mg/dL 07/29/2022 5:20 PM EST [facility] Comment:Accuracy of a glucos e result obtained from a capillary whole blood specimen relies upon adequate, non-compromised capillary blood flow. If the capillary glucose result is not consistent with the patient's clinical signs and symptoms, glucose testing should be repeated with either an arterial or venous sample on the glucometer or sent to the main labortory for testing. Comment 07/29/2022 5:20 PM EST [facility] Neurology Stroke Physician ID Lu Jean 07/29/2022 5:20 PM EST [facility] Device ID [id number] 07/29/2022 5:20 PM EST [facility] Specimen Type POC Capillary 07/29/2022 5:20 PM EST [facility] Blood Capillary blood specimen / Unknown 07/29/2022 5:16 PM EST 07/29/2022 5:20 PM EST us Doug Torres MD LAB POINT OF CARE TE ST DOCKED DEVICE UNSOLICITED RESULTS Final Result Performing Organization Address City/[facility] Co de Phone Number [facility] [address] [place] [address] * (ABNORMAL) POCT glucose meter (07/29/2022 11:18 AM EST) [facility] POCT Glucose 147(H) 74 - 99 mg/dL 07/29/2022 11:20 AM EST [facility] Comment:Accuracy of a glucos e result obtained from a capillary whole blood specimen relies upon adequate, non-compromised capillary blood flow. If the capillary glucose result is not consistent with the patient's clinical signs and symptoms, glucose testing should be repeated with either an arterial or venous sample on the glucometer or sent to the main labortory for testing. Comment 07/29/2022 11:20 AM EST [facility] Neurology Stroke Physician ID Casandra Medina 07/29/2022 11:20 AM EST [facility] Device ID [id number] 07/29/2022 11:20 AM EST [facility] Specimen Type POC Capillary 07/29/2022 11:20 AM EST [facility] Blood Capillary blood specimen / Unknown 07/29/2022 11:18 AM EST 07/29/2022 11:20 AM EST us Doug Torres MD LAB POINT OF CARE TE ST DOCKED DEVICE UNSOLICITED RESULTS Final Result Performing Organization Address City/[facility]/ZIP Co de Phone Number [facility] [address] [place] [address] * (ABNORMAL) POCT glucose meter (07/29/2022 7:52 AM EST) Pathologist [facility] POCT Glucose 145(H) 74 - 99 mg/dL 07/29/2022 7:55 AM EST [facility] Comment:Accuracy of a glucos e result obtained from a capillary whole blood specimen relies upon adequate, non-compromised capillary blood flow. If the capillary glucose result is not consistent with the patient's clinical signs and symptoms, glucose testing should be repeated with either an arterial or venous sample on the glucometer or sent to the main labortory for testing. Comment 07/29/2022 7:55 AM EST [facility] Neurology Stroke Physician ID Casandra Medina 07/29/2022 7:55 AM EST [facility] Device ID [id number] 07/29/2022 7:55 AM EST [facility] Specimen Type POC Capillary 07/29/2022 7:55 AM EST [facility] Blood Capillary blood specimen / Unknown 07/29/2022 7:52 AM EST 07/29/2022 7:55 AM EST us Doug Torres MD LAB POINT OF CARE TE ST DOCKED DEVICE UNSOLICITED RESULTS Final Result Performing Organization Address City/State/[place] de Phone Number [facility] [address] [place] [address] * (ABNORMAL) CBC W/O Differential (07/29/2022 2:48 AM EST) Pathologist [facility] WBC Count 10.09 3.70 - 10.30 10*3/uL LAB HEMATOLOGY METHOD 07/29/2022 3:52 AM EST [facility] RBC Count 2.85(L) 4.60 - 6.10 10*6/uL LAB HEMATOLOGY METHOD 07/29/2022 3:52 AM EST [facility] HGB 9.3(L) 13.7 - 17.5 g/dL LAB HEMATOLOGY METHOD 07/29/2022 3:52 AM EST [facility] HCT 26.6(L) 40.0 - 51.0 % LAB HEMATOLOGY METHOD 07/29/2022 3:52 AM EST [facility] Platelet Count 303 155 - 369 10*3/uL LAB HEMATOLOGY METHOD 07/29/2022 3:52 AM EST [facility] MCV 93 79 - 98 fL LAB HEMATOLOGY METHOD 07/29/2022 3:52 AM EST [facility] MCH 32.6(H) 26.0 - 32.0 pg LAB HEMATOLOGY METHOD 07/29/2022 3:52 AM EST [facility] MCHC 35.0 30.7 - 35.5 g/dL LAB HEMATOLOGY METHOD 07/29/2022 3:52 AM EST [facility] RDW 12.9 11.5 - 14.5 % LAB HEMATOLOGY METHOD 07/29/2022 3:52 AM EST [facility] MPV 8.9 8.8 - 12.5 fL LAB HEMATOLOGY METHOD 07/29/2022 3:52 AM EST [facility] nRBC 0.0 <=0.0 per 100 WBCs LAB HEMATOLOGY METHOD 07/29/2022 3:52 AM EST [facility] Blood Venous blood specimen / Unknown Venipuncture / Unknown 07/29/2022 2:48 AM EST 07/29/2022 2:59 AM EST us Adrianna Dyer CERTIFIED CYTOTECHNOLOGIST, DNP LAB BLOOD ORDERABLES Fi nal Result [facility] [address] [place] [address] * (ABNORMAL) Basic Metabolic Panel, Plasma (07/29/2022 2:48 AM EST) Glucose, Plasma 108(H) 74 - 99 mg/dL 07/29/2022 3:52 AM EST [facility] BUN, Plasma 14 8 - 23 mg/dL 07/29/2022 3:52 AM EST [facility] Creatinine, Plasma 0.83 0.80 - 1.30 mg/dL 07/29/2022 3:52 AM EST [facility] BUN/Creatinine Ratio 17 07/29/2022 3:52 AM EST [facility] Sodium, Plasma 128(L) 136 - 145 mmol/L 07/29/2022 3:52 AM EST [facility] Potassium, Plasma 4.0 3.7 - 4.8 mmol/L 07/29/2022 3:52 AM EST [facility] Chloride, Plasma 95(L) 97 - 107 mmol/L 07/29/2022 3:52 AM EST [facility] CO2, Plasma 24 22 - 29 mmol/L 07/29/2022 3:52 AM EST [facility] Anion Gap 9 6 - 16 mmol/L 07/29/2022 3:52 AM EST [facility] Total Calcium, Plasma 8.6(L) 8.9 - 10.2 mg/dL 07/29/2022 3:52 AM EST [facility] eGFRcr 97.7 mL/min/1.7 3m*2 07/29/2022 3:52 AM EST [facility] Comment: Reported eGFRcr in mL/min/1.73m2 is based the CKD-EPI 2020 equation that does not use a race coefficient. Effective 12/20/21 our laboratory changed the eGFR calculation to the CKD-EPI 2020 equation from the previously reported eGFR, based on the MDRD equation. ??For comparisons between the two equations, please see laboratory website: ??[email or web address] Blood Venous blood specimen / Unknown Venipuncture / Unknown 07/29/2022 2:48 AM EST 07/29/2022 2:59 AM EST us Adrianna Dyer CERTIFIED CYTOTECHNOLOGIST, DNP LAB BLOOD ORDERABLES Fi nal Result Performing Organization Address City/State/[facility] Co de Phone Number [facility] [address] [place] [address] * (ABNORMAL) POCT glucose meter (07/28/2022 5:10 PM EST) POCT Glucose 114(H) 74 - 99 mg/dL 07/28/2022 5:20 PM EST [facility] Comment:Accuracy of a glucos e result obtained from a capillary whole blood specimen relies upon adequate, non-compromised capillary blood flow. If the capillary glucose result is not consistent with the patient's clinical signs and symptoms, glucose testing should be repeated with either an arterial or venous sample on the glucometer or sent to the main labortory for testing. Comment 07/28/2022 5:20 PM EST [facility] Neurology Stroke Physician ID Sarah Faria 07/28/2022 5:20 PM EST [facility] Device ID [id number] 07/28/2022 5:20 PM EST [facility] Specimen Type POC Capillary 07/28/2022 5:20 PM EST [facility] Blood Capillary blood specimen / Unknown 07/28/2022 5:10 PM EST 07/28/2022 5:20 PM EST Doug Torres MD LAB POINT OF CARE TE ST DOCKED DEVICE UNSOLICITED RESULTS Final Result Performing Organization Address [facility]/[place] de Phone Number [facility] [address] [place] [address] * (ABNORMAL) POCT glucose meter (07/28/2022 1:46 PM EST) POCT Glucose 109(H) 74 - 99 mg/dL 07/28/2022 1:50 PM EST [facility] Comment:Accuracy of a glucos e result obtained from a capillary whole blood specimen relies upon adequate, non-compromised capillary blood flow. If the capillary glucose result is not consistent with the patient's clinical signs and symptoms, glucose testing should be repeated with either an arterial or venous sample on the glucometer or sent to the main labortory for testing. Comment 07/28/2022 1:50 PM EST [facility] Neurology Stroke Physician ID Lu Jean 07/28/2022 1:50 PM EST [facility] Device ID [id number] 07/28/2022 1:50 PM EST [facility] Specimen Type POC Capillary 07/28/2022 1:50 PM EST [facility] Blood Capillary blood specimen / Unknown 07/28/2022 1:46 PM EST 07/28/2022 1:50 PM EST Doug Torres MD LAB POINT OF CARE TE ST DOCKED DEVICE UNSOLICITED RESULTS Final Result Performing Organization Address City/[facility] Co de Phone Number [facility] [address] [place] [address] * POCT glucose meter (07/28/2022 11:52 AM EST) Pathologist [facility] POCT Glucose 78 74 - 99 mg/dL 07/28/2022 12:20 PM EST [facility] Comment:Accuracy of a glucos e result obtained from a capillary whole blood specimen relies upon adequate, non-compromised capillary blood flow. If the capillary glucose result is not consistent with the patient's clinical signs and symptoms, glucose testing should be repeated with either an arterial or venous sample on the glucometer or sent to the main labortory for testing. Comment 07/28/2022 12:20 PM EST [facility] Neurology Stroke Physician ID Sarah Faria 07/28/2022 12:20 PM EST [facility] Device ID [id number] 07/28/2022 12:20 PM EST [facility] Specimen Type POC Capillary 07/28/2022 12:20 PM EST [facility] Blood Capillary blood specimen / Unknown 07/28/2022 11:52 AM EST 07/28/2022 12:20 PM EST us Doug Torres MD LAB POINT OF CARE TE ST DOCKED DEVICE UNSOLICITED RESULTS Final Result Performing Organization Address [facility] Phone Number [facility] [address] [place] [address] * Osmolality, urine (07/28/2022 11:50 AM EST) Osmolality, Urine 567 50 - 1,200 mOsm/kg 07/28/2022 1:18 PM EST [facility] Urine Urine specimen obtained by clean catch procedure / Unknown Non-blood Collection / Unknown 07/28/2022 11:50 AM EST 07/28/2022 12:05 PM EST us Adrianna Dyer CERTIFIED CYTOTECHNOLOGIST, DNP LAB URINE ORDERABLES Fi nal Result Performing Organization Address [facility] Phone Number [facility] [address] [place] [address] * Sodium, urine, random (07/28/2022 11:50 AM EST) Sodium, Urine 66 mmol/L 07/28/2022 12:27 PM EST [facility] Urine Urine specimen obtained by clean catch procedure / Unknown Non-blood Collection / Unknown 07/28/2022 11:50 AM EST 07/28/2022 12:05 PM EST us Adrianna Tiffany Dyer CERTIFIED CYTOTECHNOLOGIST, DNP LAB URINE ORDERABLES Fi nal Result Performing Organization Address [facility]/State/ZIP Co de Phone Number [facility] [address] [place] [address] * (ABNORMAL) POCT glucose meter (07/28/2022 6:41 AM EST) [facility] POCT Glucose 111(H) 74 - 99 mg/dL 07/28/2022 6:45 AM EST [facility] Comment:Accuracy of a glucos e result obtained from a capillary whole blood specimen relies upon adequate, non-compromised capillary blood flow. If the capillary glucose result is not consistent with the patient's clinical signs and symptoms, glucose testing should be repeated with either an arterial or venous sample on the glucometer or sent to the main labortory for testing. Comment 07/28/2022 6:45 AM EST [facility] Neurology Stroke Physician ID Ashlyn Connollyc 07/28/2022 6:45 AM EST [facility] Device ID [id number] 07/28/2022 6:45 AM EST [facility] Specimen Type POC Capillary 07/28/2022 6:45 AM EST [facility] Blood Capillary blood specimen / Unknown 07/28/2022 6:41 AM EST 07/28/2022 6:45 AM EST Edwin Zapata DO LAB POINT OF CARE TE ST DOCKED DEVICE UNSOLICITED RESULTS Final Result [facility] [address] [place] [address] * (ABNORMAL) POCT glucose meter (07/28/2022 3:12 AM EST) [facility] POCT Glucose 120(H) 74 - 99 mg/dL 07/28/2022 3:15 AM EST [facility] Comment:Accuracy of a glucos e result obtained from a capillary whole blood specimen relies upon adequate, non-compromised capillary blood flow. If the capillary glucose result is not consistent with the patient's clinical signs and symptoms, glucose testing should be repeated with either an arterial or venous sample on the glucometer or sent to the main labortory for testing. Comment 07/28/2022 3:15 AM EST [facility] Neurology Stroke Physician ID Ashlyn Connollyc 07/28/2022 3:15 AM EST [facility] Device ID [id number] 07/28/2022 3:15 AM EST [facility] Specimen Type POC Capillary 07/28/2022 3:15 AM EST [facility] Blood Capillary blood specimen / Unknown 07/28/2022 3:12 AM EST 07/28/2022 3:15 AM EST [facility] POINT OF CARE TE ST DOCKED DEVICE UNSOLICITED RESULTS Final Result Performing Organization Address [facility] de Phone Number [facility] [address] [place] [address] * POCT glucose meter (07/28/2022 12:21 AM EST) POCT Glucose 92 74 - 99 mg/dL 07/28/2022 12:25 AM EST [facility] Comment:Accuracy of a glucos e result obtained from a capillary whole blood specimen relies upon adequate, non-compromised capillary blood flow. If the capillary glucose result is not consistent with the patient's clinical signs and symptoms, glucose testing should be repeated with either an arterial or venous sample on the glucometer or sent to the main labortory for testing. Comment 07/28/2022 12:25 AM EST [facility] Neurology Stroke Physician ID Nayan Connolly 07/28/2022 12:25 AM EST [facility] Device ID [id number] 07/28/2022 12:25 AM EST [facility] Specimen Type POC Capillary 07/28/2022 12:25 AM EST [facility] Blood Capillary blood specimen / Unknown 07/28/2022 12:21 AM EST 07/28/2022 12:25 AM EST us Edwin Zapata DO LAB POINT OF CARE TE ST DOCKED DEVICE UNSOLICITED RESULTS Final Result Performing Organization Address City/[facility] Co de Phone Number [facility] [address] [place] [address] * Multi Drug Resistance Test (07/27/2022 11:40 PM EST) Culture No Multi Drug Resistant Organisms Isolated 07/29/2022 6:57 AM EST [facility] Swab (Nares and Atlita Rectal) Non-blood Collection / Unknown 07/27/2022 11:40 PM EST 07/28/2022 1:02 AM EST us Edwin Zapata DO LAB MICROBIOLOGY - GENERAL ORD ERABLES Final Result Performing Organization Address [facility] de Phone Number [facility] [address] [place] [address] * (ABNORMAL) Troponin T, High Sensitivity, 2 Hour, Plasma (07/27/2022 11:40 PM EST) [facility] Troponin T, High Sensitivity, 2 Hour 35(H) <19 ng/L 07/28/2022 12:12 AM EST [facility] Troponin Delta 2 <10 ng/L 07/28/2022 12:12 AM EST [facility] Troponin Delta Interpretation Not Significant 07/28/2022 12:12 AM EST [facility] Comment:Not Significant. No acute change in troponin observed between the baseline and 2 hour samples. Blood Venous blood specimen / Unknown Venipuncture / Unknown 07/27/2022 11:40 PM EST 07/27/2022 11:45 PM EST us Edwin Zapata DO LAB BLOOD ORDERABLES Final Res ult Performing Organization Address [facility] Phone Number [facility] [address] [place] [address] * POCT glucose meter (07/27/2022 10:37 PM EST) [facility] POCT Glucose 85 74 - 99 mg/dL 07/27/2022 10:45 PM EST [facility] Comment:Accuracy of a glucos e result obtained from a capillary whole blood specimen relies upon adequate, non-compromised capillary blood flow. If the capillary glucose result is not consistent with the patient's clinical signs and symptoms, glucose testing should be repeated with either an arterial or venous sample on the glucometer or sent to the main labortory for testing. Comment 07/27/2022 10:45 PM EST [facility] Neurology Stroke Physician ID [email or web address] ryder 07/27/2022 10:45 PM EST [facility] Device ID [id number] 07/27/2022 10:45 PM EST [facility] Specimen Type POC Capillary 07/27/2022 10:45 PM EST [facility] Blood Capillary blood specimen / Unknown 07/27/2022 10:37 PM EST 07/27/2022 10:45 PM EST Edwin Zapata DO LAB POINT OF CARE TE ST DOCKED DEVICE UNSOLICITED RESULTS Final Result [facility] [address] [place], [place] [id number] * XR Femur Right 2+ Views (07/27/2022 10:19 PM EST) Anatomical Region Laterality Modality Lower Extremities, Femur Right Digital Radiography Impressions 07/28/2022 12:49 AM EST No knee arthritis is seen. No fracture or dislocation. Mild osteopenia. No joint effusion.. CRITICAL RESULT: ?? No. COMMUNICATION: Per this written report. Dictated by Vasquez Castellano MD on 07/28/2022 12:48 AM Signed by Vasquez Castellano MD on 07/28/2022 12:49 AM Narrative 07/28/2022 12:49 AM EST Exam/Procedure: XR FEMUR RIGHT 2+ VIEWS ordered by EDWIN ZAPATA [id number] CLINICAL INDICATION: trauma with pain TECHNIQUE: XR FEMUR RIGHT 2+ VIEWS COMPARISON: 07/27/2022 pelvis radiographs. FINDINGS: At least mild right hip arthritis. Procedure Note Vasquez Castellano MD - 07/28/2022 Exam/Procedure: XR FEMUR RIGHT 2+ VIEWS ordered by EDWIN [id number] CLINICAL INDICATION: trauma with pain TECHNIQUE: XR FEMUR RIGHT 2+ VIEWS COMPARISON: 07/27/2022 pelvis radiographs. FINDINGS: At least mild right hip arthritis. IMPRESSION: No knee arthritis is seen. No fracture or dislocation. Mild osteopenia. Nojoint effusion.. CRITICAL RESULT: No. COMMUNICATION: Per this written report. Dictated by Vasquez Castellano MD on 07/28/2022 12:48 AM Signed by Vasquez Castellano MD on 07/28/2022 12:49 AM Edwin Zapata DO IMG XR PROCEDURES Final Result * (ABNORMAL) POCT glucose meter (07/27/2022 10:08 PM EST) POCT Glucose 106(H) 74 - 99 mg/dL 07/27/2022 10:10 PM EST [facility] Comment:Accuracy of a glucos e result obtained from a capillary whole blood specimen relies upon adequate, non-compromised capillary blood flow. If the capillary glucose result is not consistent with the patient's clinical signs and symptoms, glucose testing should be repeated with either an arterial or venous sample on the glucometer or sent to the main labortory for testing. Comment 07/27/2022 10:10 PM EST [facility] Neurology Stroke Physician ID Nataliia Briseno 07/27/2022 10:10 PM EST [facility] Device ID [id number] 07/27/2022 10:10 PM EST [facility] Specimen Type POC Capillary 07/27/2022 10:10 PM EST [facility] Blood Capillary blood specimen / Unknown 07/27/2022 10:08 PM EST 07/27/2022 10:10 PM EST us Edwin Zapata DO LAB POINT OF CARE TE ST DOCKED DEVICE UNSOLICITED RESULTS Final Result Performing Organization Address City/State/[facility] Co de Phone Number [facility] [address] [place] [address] * Transfuse platelets (07/27/2022 9:52 PM EST) Jani Gaspar MD BLOOD TRANSFUSION ORDERABLES Fin al Result * Transfuse platelets: 2 Units (07/27/2022 9:52 PM EST) Jani Gaspar MD BLOOD TRANSFUSION ORDERABLES Steve scot Result - Final * CT Head wo IV Contrast (07/27/2022 8:49 PM EST) Anatomical Region Laterality Modality Head Computed Tomogra phy Impressions 07/27/2022 9:20 PM EST Left-sided intracranial hemorrhage as described above consistent with subdural but with an area of increased thickness and local mass effect. CRITICAL RESULT: ?? No. COMMUNICATION: Per this written report. Dictated by Joce Chiang MD on 07/27/2022 9:19 PM Signed by Joce Chiang MD on 07/27/2022 9:20 PM Narrative 07/27/2022 9:20 PM EST Exam/Procedure: CT HEAD WO IV CONTRAST ordered by JANI GASPAR, [id number] CLINICAL INDICATION: Headache, intracranial hemorrhage suspected TECHNIQUE: Routine contiguous axial CT images of the head were obtained without contrast administration. Total DLP (Dose-Length Product): 850.69 mGy.cm. Please note: The reported value represents the total of one or more individual components during the CT acquisition on this date and at this time, and as such, the same value may appear in more than one CT report depending on the interpreting/reporting physicians. COMPARISON: None. FINDINGS: There is a left supratentorial convexity subdural hemorrhage. This hemorrhage is atypical in appearance with one focal area protruding into the cranial vault producing mass effect on adjacent brain. The subdural hemorrhage extends to the midline and wraps down the left side of the falx. There is minimal shift toward the right which quantitates approximately 2 to 3 mm. The basal cisterns remain patent. Bone windows demonstrate no fracture. Procedure Note Joce Chiang MD - 07/27/2022 Exam/Procedure: CT HEAD WO IV CONTRAST ordered by JANI GASPAR, [id number] CLINICAL INDICATION: Headache, intracranial hemorrhage suspected TECHNIQUE: Routine contiguous axial CT images of the head were obtained withoutcontrast administration. Total DLP (Dose-Length Product): 850.69 mGy.cm. Please note: The reportedvalue represents the total of one or more individual components during theCT acquisition on this date and at this time, and as such, the same valuemay appear in more than one CT report depending on theinterpreting/reporting physicians. COMPARISON: None. FINDINGS: There is a left supratentorial convexity subdural hemorrhage. Thishemorrhage is atypical in appearance with one focal area protruding intothe cranial vault producing mass effect on adjacent brain. The subduralhemorrhage extends to the midline and wraps down the left side of thefalx. There is minimal shift toward the right which quantitatesapproximately 2 to 3 mm. The basal cisterns remain patent. Bone windows demonstrate no fracture. IMPRESSION: Left-sided intracranial hemorrhage as described above consistent withsubdural but with an area of increased thickness and local mass effect. CRITICAL RESULT: No. COMMUNICATION: Per this written report. Dictated by Joce Chiang MD on 07/27/2022 9:19 PM Signed by Joce Chiang MD on 07/27/2022 9:20 PM Jani Gaspar MD IMG CT PROCEDURES Final Result * Transfuse platelets (07/27/2022 8:41 PM EST) Jani Gaspar MD BLOOD TRANSFUSION ORDERABLES Fin al Result * (ABNORMAL) Osmolality (07/27/2022 8:41 PM EST) Osmolality, Serum 279(L) 280 - 301 mOsm/Kg 07/28/2022 12:25 PM EST [facility] Blood Venous blood specimen / Unknown Venipuncture / Unknown 07/27/2022 8:41 PM EST 07/27/2022 8:46 PM EST Adrianna Dyer CERTIFIED CYTOTECHNOLOGIST, DNP LAB BLOOD ORDERABLES Fi nal Result Performing Organization Address City/[facility]/ZIP Co de Phone Number [facility] [address] [place] [address] * (ABNORMAL) Troponin T, High Sensitivity, 0 Hour Plasma, Reflex to 2 Hour (07/27/2022 8:41 PM EST) Pathologist [facility] Troponin T, High Sensitivity, 0 Hour 33(H) <19 ng/L 07/27/2022 9:06 PM EST [facility] Blood Venous blood specimen / Unknown Venipuncture / Unknown 07/27/2022 8:41 PM EST 07/27/2022 8:46 PM EST Edwin Zapata DO LAB BLOOD ORDERABLES Final Res ult Performing Organization Address City/[facility]/ZIP Co de Phone Number [facility] [address] [place] [address] * ECG Adult (07/27/2022 8:36 PM EST) EKG DIAGNOSIS CLASS Abnormal MUSE ECG Ventricular Rate 73 BPM MUSE ECG Atrial Rate 73 BPM MUSE ECG MT Interval 160 ms MUSE ECG QRSD Interval 88 ms MUSE ECG QT Interval 410 ms MUSE ECG QTC Interval 451 ms MUSE ECG P [place] 1 degrees MUSE ECG R [place] -9 degrees MUSE ECG T Wave [place] 10 degrees MUSE ECG Diagnosis Normal sinus rhythm MUSE ECG Diagnosis Low voltage QRS MUSE ECG Diagnosis Possible MUSE ECG Diagnosis Inferior infarct MUSE ECG Diagnosis , age undetermined MUSE ECG Diagnosis Nonspecific T wave abnormality MUSE ECG Diagnosis Abnormal ECG MUSE ECG Diagnosis Confirmed by Nick Damon ([id number]) on 07/28/2022 2:03:42 PM MUSE ECG 07/27/2022 8:36 PM EST 07/28/2022 2:03 PM EST Edwin Zapata DO ECG ORDERABLES Final Result Performing Organization Address City/State/[facility] Co de Phone Number MUSE ECG * Type and screen (07/27/2022 7:15 PM EST) ABO/Rh O Positive 07/27/2022 6:38 PM EST [facility] Antibody Screen Negative 07/27/2022 6:38 PM EST [facility] Specimen Expiration 07/30/2022 23:59 07/27/2022 6:38 PM EST [facility] Blood Venous blood specimen / Unknown Venipuncture / Unknown 07/27/2022 7:15 PM EST 07/27/2022 7:24 PM EST Jani Gaspar MD LAB BLOOD BANK TEST ORDERABLES F inal Result Performing Organization Address City/[facility] Co de Phone Number BLOOD BANK [address] [place] [address], * Prepare Leukocyte Reduced Platelets: 2 Units (07/27/2022 6:38 PM EST) Product Code K0327D19 CH BLOO D BANK Dispense Status Transfused BLOOD BANK Blood Expiration Date BLOOD BANK Unit Number [id number] CH B LOOD BANK Product Blood Type 5100 BLOOD BANK Blood Type O+ CH BLOOD BANK Product Code [id number] CH BLOO D BANK Dispense Status Transfused BLOOD BANK Blood Expiration Date BLOOD BANK Unit Number [id number] B LOOD BANK Product Blood Type 5100 BLOOD BANK Blood Type O+ BLOOD BANK Blood Venous blood specimen / Unknown us Jani Gaspar MD BLOOD BANK PRODUCT ORDERABLES Fi nal Result Performing Organization Address City/[facility]/ZIP Co de Phone Number BLOOD BANK [address] [place] [address], * Urinalysis Microscopic Examination (07/27/2022 4:51 PM EST) Urine Urine specimen obtained by clean catch procedure / Unknown Non-blood Collection / Unknown 07/27/2022 4:51 PM EST 07/27/2022 4:55 PM EST us Carmelo Dunn MD LAB URINE ORDERABLES Final Result Performing Organization Address City/[facility]/ZIP Co de Phone Number [facility] [address] [place] [address] * (ABNORMAL) Urinalysis with reflex microscopic (07/27/2022 4:51 PM EST) Color, Urine Dark Yellow LAB URINALYSIS - AUTOMATED METHOD 07/27/2022 5:52 PM EST [facility] Clarity, Urine Clear LAB URINALYSIS - AUTOMATED METHOD 07/27/2022 5:52 PM EST [facility] Spec [place], Urine 1.016 <=1.005 to >=1.030 LAB URINALYSIS - AUTOMATED METHOD 07/27/2022 5:52 PM EST [facility] pH, Urine 7.0 4.5 to 8 LAB URINALYSIS - AUTOMATED METHOD 07/27/2022 5:52 PM EST [facility] Protein, Urine Trace(A) Negative mg/dL LAB URINALYSIS - AUTOMATED METHOD 07/27/2022 5:52 PM EST [facility] Glucose, Urine Negative Negative mg/dL LAB URINALYSIS - AUTOMATED METHOD 07/27/2022 5:52 PM EST [facility] Ketones, Urine Trace(A) Negative mg/dL LAB URINALYSIS - AUTOMATED METHOD 07/27/2022 5:52 PM EST [facility] Blood, Urine Negative Negative LAB URINALYSIS - AUTOMATED METHOD 07/27/2022 5:52 PM EST [facility] Bilirubin, Urine Negative Negative LAB URINALYSIS - AUTOMATED METHOD 07/27/2022 5:52 PM EST [facility] Urobilinogen, Urine 1.0 0.2 to 1.0 mg/dL LAB URINALYSIS - AUTOMATED METHOD 07/27/2022 5:52 PM EST [facility] Leukocytes, Urine Trace(A) Negative LAB URINALYSIS - AUTOMATED METHOD 07/27/2022 5:52 PM EST [facility] Nitrite, Urine Negative Negative LAB URINALYSIS - AUTOMATED METHOD 07/27/2022 5:52 PM EST [facility] RBC, Urine 4 - 10(A) 0 to 3 /HPF LAB URINALYSIS - AUTOMATED METHOD 07/27/2022 5:52 PM EST [facility] Comment:This result was prev iously suppressed from the chart. WBC, Urine 0 - 5 0 to 5 /HPF LAB URINALYSIS - AUTOMATED METHOD 07/27/2022 5:52 PM EST [facility] Comment:This result was prev iously suppressed from the chart. Squamous Epithelial Cells 0 - 5 0 to 5 /HPF LAB URINALYSIS - AUTOMATED METHOD 07/27/2022 5:52 PM EST [facility] Comment:This result was prev iously suppressed from the chart. Hyaline Casts 0 - 8 0 to 8 /LPF LAB URINALYSIS - AUTOMATED METHOD 07/27/2022 5:52 PM EST [facility] Comment:This result was prev iously suppressed from the chart. Bacteria, Urine Negative Negative LAB URINALYSIS - AUTOMATED METHOD 07/27/2022 5:52 PM EST [facility] Comment:This result was prev iously suppressed from the chart. Urine Urine specimen obtained by clean catch procedure / Unknown Non-blood Collection / Unknown 07/27/2022 4:51 PM EST 07/27/2022 4:55 PM EST us Carmelo Dunn MD LAB URINE ORDERABLES Final Result [facility] [address] [place] [id number] * Urine culture - (cath) (07/27/2022 4:51 PM EST) Culture No growth at day 2 07/29/2022 7:36 AM EST [facility] Urine Urine specimen from urinary conduit / Unknown Non-blood Collection / Unknown 07/27/2022 4:51 PM EST 07/27/2022 5:46 PM EST Carmelo Dunn MD LAB MICROBIOLOGY - GENERAL ORDERABLES Final Result Performing Organization Address [facility]/ZIP Co de Phone Number [facility] [address] [place] [address] * SARS-CoV-2, Flu A, Flu B, and RSV - Rapid (07/27/2022 3:54 PM EST) Pathologist [facility] SARS CoV-2/COVID-19 RNA PCR Result Not Detected Not Detected 07/27/2022 5:05 PM EST [facility] Influenza A Virus PCR Result Not Detected Not Detected 07/27/2022 5:05 PM EST [facility] Influenza B Virus PCR Result Not Detected Not Detected 07/27/2022 5:05 PM EST [facility] Respiratory Syncytial Virus (RSV) PCR Result Not Detected Not Detected 07/27/2022 5:05 PM EST [facility] Swab Nasopharyngeal structure / Unknown Non-blood Collection / Unknown 07/27/2022 3:54 PM EST 07/27/2022 4:18 PM EST Narrative [facility] - 07/27/2022 5:05 PM EST This assay is for in vitro diagnostic use under FDA emergency use authorization only. Negative results do not preclude infection with the SARS CoV-2 virus and should not be the sole basis of a patient treatment/management or public health decision. Follow up testing should be performed according to the current CDC recommendations. This test was performed on the Xpert Xpress SARS CoV-2 test, a PCR-based method. Negative results should be considered presumptive and do not preclude current or future infection obtained through community transmission or other exposures. Negative results must be considered in the context of an individual's recent exposures, history, presence of clinical signs and symptoms consistent with COVID-19. Carmelo Dunn MD LAB MICROBIOLOGY - GENERAL ORDERABLES Final Result Performing Organization Address [facility]/ZIP Co de Phone Number [facility] [address] [place] [address] * HIV 1 & 2 Antibody/Antigen Screen (07/27/2022 3:50 PM EST) HIV 1 & 2 Antibody/Antigen Screen Non Reactive Non Reactive 07/27/2022 5:44 PM EST [facility] Comment:Screening for HIV 1 & 2 antibodies, and P24 antigen is NONREACTIVE. No confirmatory testing is required. Blood Venous blood specimen / Unknown Venipuncture / Unknown 07/27/2022 3:50 PM EST 07/27/2022 5:04 PM EST Carmelo Dunn MD LAB BLOOD ORDERABLES Final Result Performing Organization Address City/State/[facility] Co de Phone Number [facility] [address] [place] [address] * (ABNORMAL) PT-INR (07/27/2022 3:50 PM EST) Pathologist [facility] Prothrombin Time 15.2(H) 12.0 - 14.3 sec 07/27/2022 4:38 PM EST [facility] INR 1.3(H) 0.9 - 1.1 07/27/2022 4:38 PM EST [facility] Blood Venous blood specimen / Unknown Venipuncture / Unknown 07/27/2022 3:50 PM EST 07/27/2022 4:38 PM EST Narrative [facility] - 07/27/2022 4:38 PM EST OPTIMAL INR RANGES FOR PATIENT ON ORAL ANTICOAGULANT THERAPY Prevention of venous thromboembolism ?INR 2.0 to 3.0 In patients with heart disease: Atrial fibrillation ?INR 2.0 to 3.0 Valvular heart disease ? INR 2.0 to 3.0 Tissue heart valves ?INR 2.0 to 3.0 Mechanical prosthetic valves ? INR 2.5 to 3.5 Prevention of recurrent DC ? INR 2.5 to 3.5 Carmelo Dunn MD LAB BLOOD ORDERABLES Final Result [facility] [address] [place] [address] * (ABNORMAL) CBC w/diff (07/27/2022 3:50 PM EST) WBC Count 10.96(H) 3.70 - 10.30 10*3/uL LAB HEMATOLOGY METHOD 07/27/2022 4:24 PM EST [facility] RBC Count 2.85(L) 4.60 - 6.10 10*6/uL LAB HEMATOLOGY METHOD 07/27/2022 4:24 PM EST [facility] HGB 9.3(L) 13.7 - 17.5 g/dL LAB HEMATOLOGY METHOD 07/27/2022 4:24 PM EST [facility] HCT 26.9(L) 40.0 - 51.0 % LAB HEMATOLOGY METHOD 07/27/2022 4:24 PM EST [facility] Platelet Count 335 155 - 369 10*3/uL LAB HEMATOLOGY METHOD 07/27/2022 4:24 PM EST [facility] MCV 94 79 - 98 fL LAB HEMATOLOGY METHOD 07/27/2022 4:24 PM EST [facility] MCH 32.6(H) 26.0 - 32.0 pg LAB HEMATOLOGY METHOD 07/27/2022 4:24 PM EST [facility] MCHC 34.6 30.7 - 35.5 g/dL LAB HEMATOLOGY METHOD 07/27/2022 4:24 PM EST [facility] RDW 13.2 11.5 - 14.5 % LAB HEMATOLOGY METHOD 07/27/2022 4:24 PM EST [facility] MPV 9.0 8.8 - 12.5 fL LAB HEMATOLOGY METHOD 07/27/2022 4:24 PM EST [facility] nRBC 0.0 <=0.0 per 100 WBCs LAB HEMATOLOGY METHOD 07/27/2022 4:24 PM EST [facility] Differential Type Automated LAB HEMATOLOGY METHOD 07/27/2022 4:24 PM EST [facility] Neutrophils % 73.0 % LAB HEMATOLOGY METHOD 07/27/2022 4:24 PM EST [facility] Lymphocytes % 14.0 % LAB HEMATOLOGY METHOD 07/27/2022 4:24 PM EST [facility] Monocytes % 11.0 % LAB HEMATOLOGY METHOD 07/27/2022 4:24 PM EST [facility] Eosinophils % 1.0 % LAB HEMATOLOGY METHOD 07/27/2022 4:24 PM EST [facility] Basophils % 0.0 % LAB HEMATOLOGY METHOD 07/27/2022 4:24 PM EST [facility] Immature Granulocytes % 1.0 % LAB HEMATOLOGY METHOD 07/27/2022 4:24 PM EST [facility] Neutrophils Absolute 8.04(H) 1.60 - 6.10 10*3/uL LAB HEMATOLOGY METHOD 07/27/2022 4:24 PM EST [facility] Lymphocytes Absolute 1.50 1.20 - 3.90 10*3/uL LAB HEMATOLOGY METHOD 07/27/2022 4:24 PM EST [facility] Monocytes Absolute 1.25(H) 0.30 - 0.90 10*3/uL LAB HEMATOLOGY METHOD 07/27/2022 4:24 PM EST [facility] Eosinophils Absolute 0.06 0.00 - 0.50 10*3/uL LAB HEMATOLOGY METHOD 07/27/2022 4:24 PM EST [facility] Basophils Absolute 0.03 0.00 - 0.10 10*3/uL LAB HEMATOLOGY METHOD 07/27/2022 4:24 PM EST [facility] Immature Granulocytes Absolute 0.08(H) 0.00 - 0.06 10*3/uL LAB HEMATOLOGY METHOD 07/27/2022 4:24 PM EST [facility] Blood Venous blood specimen / Unknown Venipuncture / Unknown 07/27/2022 3:50 PM EST 07/27/2022 4:21 PM EST Narrative [facility] - 07/27/2022 4:24 PM EST Therapeutic decision making should be based on absolute values, rather than percentages. us Carmelo Dunn MD LAB BLOOD ORDERABLES Final Result [facility] [address] [place] [address] * (ABNORMAL) Blood gas panel, venous (07/27/2022 3:50 PM EST) pH, Venous 7.44(H) 7.32 - 7.43 LAB HEMATOLOGY METHOD 07/27/2022 4:06 PM EST [facility] pCO2, Venous 38(L) 40 - 55 mmHg LAB HEMATOLOGY METHOD 07/27/2022 4:06 PM EST [facility] pO2, Venous 30 25 - 40 mmHg LAB HEMATOLOGY METHOD 07/27/2022 4:06 PM EST [facility] SO2, Measured, Venous 48.1(L) 65 - 80 % LAB HEMATOLOGY METHOD 07/27/2022 4:06 PM EST [facility] Base Excess, Venous 1.5 -2.0 - 3.0 mmol/L LAB HEMATOLOGY METHOD 07/27/2022 4:06 PM EST [facility] Bicarbonate, Calculated, Venous 26 22 - 26 mmol/L LAB HEMATOLOGY METHOD 07/27/2022 4:06 PM EST [facility] Hematocrit, Whole Blood 30.7(L) 40.0 - 51.0 % LAB HEMATOLOGY METHOD 07/27/2022 4:06 PM EST [facility] Sodium, Whole Blood 130(L) 136 - 145 mmol/L LAB HEMATOLOGY METHOD 07/27/2022 4:06 PM EST [facility] Potassium, Whole Blood 4.3 3.6 - 4.9 mmol/L LAB HEMATOLOGY METHOD 07/27/2022 4:06 PM EST [facility] Chloride, Whole Blood 97 97 - 107 mmol/L LAB HEMATOLOGY METHOD 07/27/2022 4:06 PM EST [facility] Glucose, Whole Blood 112(H) 74 - 99 mg/dL LAB HEMATOLOGY METHOD 07/27/2022 4:06 PM EST [facility] Lactate, Venous, Whole Blood 1.1 0.5 - 2.2 mmol/L LAB HEMATOLOGY METHOD 07/27/2022 4:06 PM EST [facility] Ionized Calcium, Whole Blood 4.7 4.6 - 5.1 mg/dL LAB HEMATOLOGY METHOD 07/27/2022 4:06 PM EST [facility] Blood Venous blood specimen / Unknown Venipuncture / Unknown 07/27/2022 3:50 PM EST 07/27/2022 4:05 PM EST us Carmelo Dunn MD LAB BLOOD ORDERABLES Final Result [facility] [address] [place] [address] * (ABNORMAL) Magnesium (07/27/2022 3:50 PM EST) Magnesium, Plasma 1.4(L) 1.9 - 2.4 mg/dL 07/27/2022 4:45 PM EST [facility] Blood Venous blood specimen / Unknown Venipuncture / Unknown 07/27/2022 3:50 PM EST 07/27/2022 4:45 PM EST us Carmelo Dunn MD LAB BLOOD ORDERABLES Final Result Performing Organization Address City/[facility]/ZIP Co de Phone Number [facility] [address] [place] [address] * Hepatitis C Antibody - ED (07/27/2022 3:50 PM EST) Pathologist [facility] [place] Hepatitis C Antibody Negative Negative 07/27/2022 5:44 PM EST [facility] Blood Venous blood specimen / Unknown Venipuncture / Unknown 07/27/2022 3:50 PM EST 07/27/2022 5:04 PM EST us Carmelo Dunn MD LAB BLOOD ORDERABLES Final Result Performing Organization Address [facility] Phone Number [facility] [address] [place] [address] * (ABNORMAL) CMP (07/27/2022 3:50 PM EST) Pathologist [facility] [place] Glucose, Plasma 115(H) 74 - 99 mg/dL 07/27/2022 4:45 PM EST [facility] BUN, Plasma 20 8 - 23 mg/dL 07/27/2022 4:45 PM EST [facility] Creatinine, Plasma 1.11 0.80 - 1.30 mg/dL 07/27/2022 4:45 PM EST [facility] BUN/Creatinine Ratio 18 07/27/2022 4:45 PM EST [facility] Sodium, Plasma 127(L) 136 - 145 mmol/L 07/27/2022 4:45 PM EST [facility] Potassium, Plasma 4.5 3.7 - 4.8 mmol/L 07/27/2022 4:45 PM EST [facility] Chloride, Plasma 94(L) 97 - 107 mmol/L 07/27/2022 4:45 PM EST [facility] CO2, Plasma 22 22 - 29 mmol/L 07/27/2022 4:45 PM EST [facility] Anion Gap 11 6 - 16 mmol/L 07/27/2022 4:45 PM EST [facility] Total Calcium, Plasma 8.9 8.9 - 10.2 mg/dL 07/27/2022 4:45 PM EST [facility] Total Protein 7.7 6.3 - 7.9 g/dL 07/27/2022 4:45 PM EST [facility] Albumin, Plasma 2.9(L) 3.5 - 5.2 g/dL 07/27/2022 4:45 PM EST [facility] AST, Plasma 26 19 - 48 U/L 07/27/2022 4:45 PM EST [facility] ALT, Plasma 16 11 - 41 U/L 07/27/2022 4:45 PM EST [facility] Alkaline Phosphatase, Plasma 166(H) 40 - 115 U/L 07/27/2022 4:45 PM EST [facility] Total Bilirubin, Plasma 0.8 0.2 - 1.1 mg/dL 07/27/2022 4:45 PM EST [facility] eGFRcr 74.2 mL/min/1.7 3m*2 07/27/2022 4:45 PM EST [facility] Comment: Reported eGFRcr in mL/min/1.73m2 is based the CKD-EPI 2021 equation that does not use a race coefficient. Effective 12/20/21 our laboratory changed the eGFR calculation to the CKD-EPI 2021 equation from the previously reported eGFR, based on the MDRD equation. ??For comparisons between the two equations, please see laboratory website: ??[email or web address] Blood Venous blood specimen / Unknown Venipuncture / Unknown 07/27/2022 3:50 PM EST 07/27/2022 4:45 PM EST us Carmelo Dunn MD LAB BLOOD ORDERABLES Final Result [facility] [address] [place] [address] * EKG now - STAT (adult) (07/27/2022 2:46 PM EST) EKG DIAGNOSIS CLASS Abnormal MUSE ECG Ventricular Rate 74 BPM MUSE ECG Atrial Rate 74 BPM MUSE ECG MT Interval 164 ms MUSE ECG QRSD Interval 74 ms MUSE ECG QT Interval 302 ms MUSE ECG QTC Interval 335 ms MUSE ECG P [place] 12 degrees MUSE ECG R [place] 10 degrees MUSE ECG T Wave [place] 23 degrees MUSE ECG Diagnosis Normal sinus rhythm MUSE ECG Diagnosis Low voltage QRS MUSE ECG Diagnosis Nonspecific T wave abnormality MUSE ECG Diagnosis Abnormal ECG MUSE ECG Diagnosis No significant change was found MUSE ECG Diagnosis Confirmed by Nick Damon ([id number]) on 07/28/2022 8:56:24 AM MUSE ECG 07/27/2022 2:46 PM EST 07/28/2022 8:56 AM EST us Carmelo Dunn MD ECG ORDERABLES Final Resul t MUSE ECG documented in this encounter Visit Diagnoses Diagnosis Subdural hematoma without coma (CMS/HCC)- Primary Subdural hematoma without coma, without loss of consciousness, initial encounter (CMS/HCC) Chest pain Unspecified chest pain Multiple falls Multilevel degenerative disc disease Hyponatremia Hyposmolality and/or hyponatremia Hypoalbuminemia Other disorders of plasma protein metabolism Hypomagnesemia Disorders of magnesium metabolism Impaired mobility Other ill-defined conditions Coagulopathy (CMS/HCC) Other and unspecified coagulation defects Chronic kidney disease Chronic kidney disease, unspecified Obesity (BMI 30-39.9) Urinary retention Unspecified retention of urine documented in this encounter Admitting Diagnoses Diagnosis Subdural hematoma (CMS/HCC) Subdural hemorrhage documented in this encounter Administered Medications Inactive Administered Medications - up to 3 most recent administrations Medication Order MAR Action Action Date Dose Rate Site acetaminophen (Tylenol) tablet 500 mg 500 mg, Oral, Every 6 hours scheduled, First dose on Sat07/28/22 at 0000, Until Discontinued, Routine Given 08/02/2022 5:32 AM EST 500 mg Given 08/02/2022 12:05 AM EST 500 mg Given 08/01/2022 5:08 PM EST 500 mg atorvastatin (Lipitor) tablet 80 mg 80 mg, Oral, Nightly, First dose on Sat07/27/22 at 2150, Until Discontinued, Routine Given 08/01/2022 8:50 PM EST 80 mg Given 07/31/2022 10:39 PM EST 80 mg Given 07/30/2022 10:36 PM EST 80 mg carvedilol (Coreg) tablet 12.5 mg 12.5 mg, Oral, 2 times daily with meals, First dose on Sat07/28/22 at 0830, Until Discontinued, Routine Given 08/02/2022 8:38 AM EST 12.5 mg Given 08/01/2022 5:09 PM EST 12.5 mg Given 08/01/2022 8:20 AM EST 12.5 mg citalopram (CeleXA) tablet 20 mg 20 mg, Oral, Daily, First dose on Sat07/28/22 at 0900, Until Discontinued, Routine Given 08/02/2022 8:38 AM EST 20 mg Given 08/01/2022 8:20 AM EST 20 mg Given 07/31/2022 8:51 AM EST 20 mg dextrose 10 % (D10W) bolus 125 mL 125 mL (12.5 g), Intravenous, Every 15 min PRN, Starting on Sat07/27/22 at 2145, Until Ana 08/02/22 at 1227, Administer over 15 Minutes, Routine, POC BG 51 to 70 mg/dL New Bag 07/30/2022 6:25 AM EST 125 mL 500 mL/hr dextrose 10 % (D10W) bolus 250 mL 250 mL (25 g), Intravenous, Every 15 min PRN, Starting on Sat07/27/22 at 2145, Until Ana 08/02/22 at 1227, Administer over 15 Minutes, Routine, POC BG is less than or equal to 50 mg/dL enoxaparin (Lovenox) syringe 30 mg 30 mg, Subcutaneous, 2 times daily, First dose on Sat07/28/22 at 1230, Until Discontinued, Routine Given 08/02/2022 8:38 AM EST 30 mg Left Lower Abdomen Given 08/01/2022 8:49 PM EST 30 mg Le ft Upper Abdomen Given 08/01/2022 8:20 AM EST 30 mg Le ft Lower Abdomen famotidine (Pepcid) tablet 20 mg 20 mg, Oral, 2 times daily, First dose on Sat07/27/22 at 2145, Until Discontinued, Routine Given 07/28/2022 9:24 PM EST 20 mg Given 07/28/2022 8:42 AM EST 20 mg Given 07/27/2022 11:40 PM EST 20 mg glucagon (human recombinant) injection 1 mg 1 mg, Intramuscular, Every 15 min PRN, Starting on Sat07/27/22 at 2145, Until Ana 08/02/22 at 1227, Routine, If patient NPO, lacks IV access, May Give IM and POC BG less than or equal to 70 mg/dL, glucose (Glutose) 40 % oral gel 15 grams of glucose 15 grams of glucose, Sublingual, Every 15 min PRN, Starting on Sat07/27/22 at 2145, Until Sat07/31/22 at 0957, Routine, low blood sugar, POC BG 71 to 89 mg/dL Given 07/30/2022 5:56 AM EST 15 grams of glucose Given 07/28/2022 12:39 PM EST 15 grams of glucose insulin lispro (Admelog) 100 units/mL injection - Correction - Standard Dose 0-5 Units, Subcutaneous, 3 times daily with meals, First dose on Sat07/28/22 at 0830, Until Discontinued, Routine insulin lispro (Admelog) injection - Correction - Nighttime Dose 0-3 Units, Subcutaneous, 2 times nightly (2100 & 0300), First dose on Sat07/27/22 at 2150, Until Discontinued, Routine lactated Ringer's infusion 75 mL/hr, Intravenous, Continuous, Starting on Sat07/27/22 at 2145, Until Sat07/28/22 at 0738, Routine Rate/Dose Verify 07/28/2022 5:00 AM EST 75 mL/hr 75 mL/hr Rate/Dose Verify 07/28/2022 4:00 AM EST 75 mL/hr 75 mL/h r Rate/Dose Verify 07/28/2022 3:00 AM EST 75 mL/hr 75 mL/h r magnesium sulfate IVPB 2 g 2 g, Intravenous, Once, 1 dose, On Sat07/28/22 at 0800, Routine New Bag 07/28/2022 8:42 AM EST 2 g 25 mL/h r melatonin tablet 3 mg 3 mg, Oral, Nightly, First dose on Sat07/31/22 at 2100, Until Discontinued, Routine Given 08/01/2022 8:50 PM EST 3 mg Given 07/31/2022 10:40 PM EST 3 mg methocarbamol (Robaxin) tablet 500 mg 500 mg, Oral, 4 times daily, First dose on Sat07/28/22 at 1800, Until Discontinued, Routine Given 08/02/2022 8:38 AM EST 500 mg Given 08/01/2022 9:10 PM EST 500 mg Given 08/01/2022 5:08 PM EST 500 mg mometasone-formoterol (Dulera 100) 100-5 MCG/ACT inhaler 2 puff 2 puff, Inhalation, 2 times daily, First dose on Sat07/29/22 at 0915, Until Discontinued Given 08/02/2022 8:42 AM EST 2 puffs Given 08/01/2022 8:50 PM EST 2 puffs Given 08/01/2022 8:20 AM EST 2 puffs ondansetron ODT (Zofran-ODT) disintegrating tablet 4 mg 4 mg, Oral, Every 6 hours PRN, Starting on Sat07/27/22 at 2141, Until Ana 08/02/22 at 1227, Routine, nausea, vomiting Given 07/30/2022 5:18 AM EST 4 mg oxyCODONE (Roxicodone) immediate release tablet 5 mg 5 mg, Oral, Every 4 hours PRN, Starting on Sat07/27/22 at 2141, Until Sat07/30/22 at 1123, Routine, severe pain Given 07/28/2022 1:59 AM EST 5 mg pantoprazole (Protonix) EC tablet 40 mg 40 mg, Oral, Daily before breakfast, First dose on Sat07/29/22 at 0915, Until Discontinued, Routine Given 08/02/2022 8:37 AM EST 40 mg Given 08/01/2022 7:08 AM EST 40 mg Given 07/31/2022 7:27 AM EST 40 mg potassium chloride CR (Klor-Con) ER tablet 40 mEq 40 mEq, Oral, Once, 1 dose, On Sat07/30/22 at 0230, Routine Given 07/30/2022 3:19 AM EST 40 mEq Povidone-Iodine 5 % swab solution 1 Swab Nasal, Daily, 5 doses, First dose on Sat07/30/22 at 1300, Last dose on Sat08/03/22 at 0900, Routine Given 08/02/2022 8:42 AM EST 1 Swab. Given 08/01/2022 8:20 AM EST 1 Swab. Given 07/31/2022 8:51 AM EST 1 Swab. ranolazine (Ranexa) 12 hr tablet 1,000 mg 1,000 mg, Oral, 2 times daily, First dose on Sat07/29/22 at 0915, Until Discontinued, Routine Given 08/02/2022 8:37 AM EST 1,000 mg Given 08/01/2022 9:10 PM EST 1,000 mg Given 08/01/2022 8:19 AM EST 1,000 mg sodium chloride 0.9 % flush 10 mL 10 mL, Intravenous, Every 12 hours PRN, Starting on Sat07/27/22 at 2138, Until Ana 08/02/22 at 1227, Routine, line care sodium chloride 0.9 % flush 10 mL 10 mL, Intravenous, As needed, Starting on Sat07/27/22 at 2138, Until Ana 08/02/22 at 1227, Routine, line care, Before and after each medication infusion sodium chloride 0.9% infusion 50 mL/hr, Intravenous, Continuous, Starting on 07/28/22 at 0800, Until Sat07/30/22 at 0638, Routine Rate/Dose Verify 07/30/2022 4:00 AM EST 50 mL/hr 50 mL/hr Rate/Dose Verify 07/30/2022 12:00 AM EST 50 mL/hr 50 mL/ hr Rate/Dose Verify 07/29/2022 8:00 PM EST 50 mL/hr 50 mL/h r tamsulosin (Flomax) 24 hr capsule 0.4 mg 0.4 mg, Oral, Daily with dinner, First dose on Sat07/30/22 at 1800, Until Discontinued, Routine Given 08/01/2022 5:08 PM EST 0.4 mg Given 07/31/2022 5:13 PM EST 0.4 mg Given 07/30/2022 6:13 PM EST 0.4 mg documented in this encounter Active and Recently Administered Medications Times are shown in EST. Scheduled Medication Order 07/31/2022 08/01/2022 08/02/2022 acetaminophen (Tylenol) tablet 500 mg 500 mg, Oral, Every 6 hours scheduled, First dose on Sat07/28/22 at 0000, Until Discontinued, Routine 0007 (Given - Provider: Linda France RN)0706 (Given - Provider: Linda France RN)4407 (Given - Provider: Candice Raymundo RN)1714 (Given - Provider: Candice Raymundo RN) 0000 (Not Given - Provider: Linda France RN - Reason: Patient/family refused)0612 (Given - Provider: Linda France RN)1153 (Given - Provider: Usha Hudson)1708 (Given - Provider: Usha Hudson) 0005 (Given - Provider: Mckenzie Rios, ALINA)0532 (Given - Provider: Mckenzie Rios RN)1200 (Canceled Entry - Provider: Automatic Discharge Provider - Comment: Automatically canceled at discontinue of medication order) atorvastatin (Lipitor) tablet 80 mg 80 mg, Oral, Nightly, First dose on Sat07/27/22 at 2150, Until Discontinued, Routine 2239 (Given - Provider: Linda France RN) 2049 (Given - Provider: Mckenzie Rios RN) carvedilol (Coreg) tablet 12.5 mg 12.5 mg, Oral, 2 times daily with meals, First dose on Sat07/28/22 at 0830, Until Discontinued, Routine 0851 (Given - Provider: Candice Raymundo RN)1714 (Given - Provider: Candice Raymundo RN) 0820 (Given - Provider: Usha Hudson)1709 (Given - Provider: Usha Hudson) 0838 (Given - Provider: Bella Ulloa) citalopram (CeleXA) tablet 20 mg 20 mg, Oral, Daily, First dose on Sat07/28/22 at 0900, Until Discontinued, Routine 0851 (Given - Provider: Candice Raymundo RN) 0820 (Given - Provider: Usha Hudson) 0838 (Given - Provider: Bella Ulloa) enoxaparin (Lovenox) syringe 30 mg 30 mg, Subcutaneous, 2 times daily, First dose on Sat07/28/22 at 1230, Until Discontinued, Routine 0852 (Given - Provider: Candice Raymundo RN)2238 (Given - Provider: Linda France RN) 0820 (Given - Provider: Usha Hudson)2049 (Given - Provider: Mckenzie Rios RN) 0838 (Given - Provider: Bella Ulloa) insulin lispro (Admelog) 100 units/mL injection - Correction - Standard Dose 0-5 Units, Subcutaneous, 3 times daily with meals, First dose on Sat07/28/22 at 0830, Until Discontinued, Routine 0852 (Not Given - Provider: Candice Raymundo RN - Reason: Order parameters not met)1148 (Not Given - Provider: Candice Raymundo RN - Reason: Order parameters not met)1718 (Not Given - Provider: Candice Raymundo RN - Reason: Order parameters not met) 0847 (Not Given - Provider: Candice Raymundo RN - Reason: Order parameters not met)1203 (Not Given - Provider: Candice Raymundo RN - Reason: Order parameters not met)1720 (Not Given - Provider: Candice Raymundo RN - Reason: Order parameters not met) 0913 (Not Given - Provider: Anastasiia Reyes RN - Reason: Order parameters not met) insulin lispro (Admelog) injection - Correction - Nighttime Dose 0-3 Units, Subcutaneous, 2 times nightly (2099 & 0300), First dose on Sat07/27/22 at 2150, Until Discontinued, Routine 0300 (Not Given - Provider: Linda France RN - Reason: Order parameters not met)2100 (Not Given - Provider: Linda France RN - Reason: Order parameters not met) 0300 (Not Given - Provider: Linda France RN - Reason: Order parameters not met)2030 (Not Given - Provider: Mckenzie Rios RN - Reason: See Provider Order) 0437 (Not Given - Provider: Mckenzie Rios RN - Reason: See Provider Order) melatonin tablet 3 mg 3 mg, Oral, Nightly, First dose on Sat07/31/22 at 2100, Until Discontinued, Routine 2240 (Given - Provider: Linda France RN) 2050 (Given - Provider: Mckenzie Rios RN) methocarbamol (Robaxin) tablet 500 mg 500 mg, Oral, 4 times daily, First dose on Sat07/28/22 at 1800, Until Discontinued, Routine 0851 (Given - Provider: Candice Raymundo RN)1349 (Given - Provider: Candice Raymundo RN)1714 (Given - Provider: Candice Raymundo RN)2258 (Given - Provider: Linda France RN) 0820 (Given - Provider: Usha Hudson)1413 (Given - Provider: Usha Hudson)1708 (Given - Provider: Usha Hudson)2110 (Given - Provider: Mckenzie Rios RN) 0838 (Given - Provider: Bella Ulloa) mometasone-formoterol (Dulera 100) 100-5 MCG/ACT inhaler 2 puff 2 puff, Inhalation, 2 times daily, First dose on 07/29/22 at 0915, Until Discontinued 0852 (Given - Provider: Candice Raymundo RN)2100 (Given - Provider: Linda France RN) 0820 (Given - Provider: Usha Hudson)205 (Given - Provider: Mckenzie Rios RN) 0842 (Given - Provider: Bella Ulloa) pantoprazole (Protonix) EC tablet 40 mg 40 mg, Oral, Daily before breakfast, First dose on 07/29/22 at 0915, Until Discontinued, Routine 0727 (Given - Provider: Linda France RN) 0708 (Given - Provider: Linda France, ALINA) 0837 (Given - Provider: Bella Ulloa) Povidone-Iodine 5 % swab solution 1 Swab Nasal, Daily, 5 doses, First dose on Sat07/30/22 at 1300, Last dose on Sat08/03/22 at 0900, Routine 0851 (Given - Provider: Candice Raymundo RN) 0820 (Given - Provider: Usha Hudson) 0842 (Given - Provider: Bella Ulloa) ranolazine (Ranexa) 12 hr tablet 1,000 mg 1,000 mg, Oral, 2 times daily, First dose on 07/29/22 at 0915, Until Discontinued, Routine 0851 (Given - Provider: Candice Raymundo RN)2239 (Given - Provider: Linda France RN) 0819 (Given - Provider: Usha Hudson)2109 (Given - Provider: Mckenzie Rios, ALINA) 0837 (Given - Provider: Bella Ulloa) tamsulosin (Flomax) 24 hr capsule 0.4 mg 0.4 mg, Oral, Daily with dinner, First dose on Sat07/30/22 at 1800, Until Discontinued, Routine 1713 (Given - Provider: Candice Raymundo RN) 1708 (Given - Provider: Usha Hudson) PRN Medication Order 07/31/2022 08/01/2022 08/02/2022 dextrose 10 % (D10W) bolus 125 mL(Linked Group 1) 125 mL (12.5 g), Intravenous, Every 15 min PRN, Starting on Sat07/27/22 at 2145, Until Ana 08/02/22 at 1227, Administer over 15 Minutes, Routine, POC BG 51 to 70 mg/dL dextrose 10 % (D10W) bolus 250 mL(Linked Group 2) 250 mL (25 g), Intravenous, Every 15 min PRN, Starting on Sat07/27/22 at 2145, Until Ana 08/02/22 at 1227, Administer over 15 Minutes, Routine, POC BG is less than or equal to 50 mg/dL glucagon (human recombinant) injection 1 mg 1 mg, Intramuscular, Every 15 min PRN, Starting on Sat07/27/22 at 2145, Until Ana 08/02/22 at 1227, Routine, If patient NPO, lacks IV access, May Give IM and POC BG less than or equal to 70 mg/dL, ondansetron ODT (Zofran-ODT) disintegrating tablet 4 mg 4 mg, Oral, Every 6 hours PRN, Starting on Sat07/27/22 at 2141, Until Ana 08/02/22 at 1227, Routine, nausea, vomiting 0924 (Canceled Entry - Provider: Automatic Discharge Provider - Comment: Automatically canceled at discontinue of medication order) sodium chloride 0.9 % flush 10 mL(Linked Group 3) 10 mL, Intravenous, Every 12 hours PRN, Starting on Sat07/27/22 at 2138, Until Ana 08/02/22 at 1227, Routine, line care sodium chloride 0.9 % flush 10 mL(Linked Group 3) 10 mL, Intravenous, As needed, Starting on Sat07/27/22 at 2138, Until Sat08/02/22 at 1227, Routine, line care, Before and after each medication infusion Linked Groups Order Group 1: glucose (Glutose) 40 % oral gel 15 grams of glucose (CANCELED) 15 grams of glucose, Sublingual, Every 15 min PRN, Starting on Sat07/27/22 at 2145, Until Sat07/31/22 at 0957, Routine, low blood sugar, BG 51?to 70 mg/dL Or dextrose 10 % (D10W) bolus 125 mLJump to med 125 mL (12.5 g), Intravenous, Every 15 min PRN, Starting on Sat07/27/22 at 2145, Until Sat08/02/22 at 1227, Administer over 15 Minutes, Routine, POC BG 51 to 70 mg/dL Group 2: dextrose 10 % (D10W) bolus 250 mLJump to med 250 mL (25 g), Intravenous, Every 15 min PRN, Starting on Sat07/27/22 at 2145, Until Sat08/02/22 at 1227, Administer over 15 Minutes, Routine, POC BG is less than or equal to 50 mg/dL Or glucose (Glutose) 40 % oral gel 30 grams of glucose (CANCELED) 30 grams of glucose, Sublingual, Every 15 min PRN, Starting on Sat07/27/22 at 2145, Until Sat07/31/22 at 0957, Routine, low blood sugar, POC BG is less than or equal to 50 mg/dL Group 3: Insert peripheral IV (COMPLETED) Once, On Sat07/27/22 at 213, For 1 occurrence And Saline lock IV (COMPLETED) Once, On Sat07/27/22 at 2138, For 1 occurrence And sodium chloride 0.9 % flush 10 mLJump to med 10 mL, Intravenous, Every 12 hours PRN, Starting on Sat07/27/22 at 2138, Until Sat08/02/22 at 1227, Routine, line care And sodium chloride 0.9 % flush 10 mLJump to med 10 mL, Intravenous, As needed, Starting on Sat07/27/22 at 2138, Until Sat08/02/22 at 1227, Routine, line care, Before and after each medication infusion documented in this encounter Care Teams Independent Agent Music Education Relationship Specialty Start Date End Date Junior Alas MD [address] [place] [address] PCP - General 10/07/20 documented as of this encounter
--- OUTSIDE RECORDS SUMMARY | 2024-04-21 07:40 | XMS_ITS | Encounter Summary ---
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 No / Unsure 06/12/2022 10:06 PM EST documented as of this encounter Miscellaneous Notes * Telephone Encounter - Meli Bran - 07/11/2022 2:51 PM EST vm from Jessica requesting to make an appt for Mayo Jain for his hand. I returned her call and lvm for a return call. Pt needs to be seen jacey by either Norbert Cardoso or Norma Carrasco next week if return call is made to us. Justa Lopez [phone] documented in this encounter Plan of Treatment Not on file documented as of this encounter Visit Diagnoses Not on filedocumented in this encounter Care Teams Folder Taper Operator Relationship Specialty Start Date End Date Junior Alas MD [address] [place] [address] PCP - General 10/07/20 documented as of this encounter
--- OUTSIDE RECORDS SUMMARY | 2024-04-21 07:40 | XMS_ITS | Encounter Summary ---
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) to steady your nerves or to get [...] PM EST documented as of this encounter Plan of Treatment Not on file documented as of this encounter Procedures Procedure Name Priority Date/Time Associated Diagnosis Comments XR CHEST 1 VIEW 07/27/2022 9:37 AM EST documented in this encounter Results * XR Chest 1 View (07/27/2022 9:37 AM EST) Anatomical Region Laterality Modality Chest Digital Radiogra phy 07/27/2022 9:37 AM EST Armando Burgess MD IMG XR PROCEDURES Final Resu lt documented in this encounter Visit Diagnoses Not on filedocumented in this encounter Care Teams Milking System Installer Relationship Specialty Start Date End Date Junior Alas MD [address] [place] [address] PCP - General 10/07/20 documented as of this encounter
--- OUTSIDE RECORDS SUMMARY | 2024-04-21 07:40 | XMS_ITS | Encounter Summary ---
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 or to get [...] Name Priority Date/Time Associated Diagnosis Comments CT CERVICAL SPINE WO IV CONTRAST 07/27/2022 9:22 AM EST documented in this encounter Results * CT Cervical Spine wo IV Contrast (07/27/2022 9:22 AM EST) Anatomical Region Laterality Modality Spine, C-spine Computed Tomogra phy 07/27/2022 9:22 AM EST Armando Burgess MD IMG CT PROCEDURES Final Resu lt documented in this encounter Visit Diagnoses Not on filedocumented in this encounter Care Teams Life Sciences Instructor Relationship Specialty Start Date End Date Junior Alas MD [address] [place] [address] PCP - General 10/07/20 documented as of this encounter
--- OUTSIDE RECORDS SUMMARY | 2024-04-21 07:40 | XMS_ITS | Encounter Summary ---
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
--- OUTSIDE RECORDS SUMMARY | 2024-04-21 07:40 | XMS_ITS | Encounter Summary ---
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) to steady your nerves or to [...] Name Priority Date/Time Associated Diagnosis Comments XR PELVIS 1 OR 2 VIEWS 07/27/2022 9:37 AM EST documented in this encounter Results * XR Pelvis 1 or 2 Views (07/27/2022 9:37 AM EST) Anatomical Region Laterality Modality Body, Pelvis Digital Radiogra phy 07/27/2022 9:37 AM EST Armando Burgess MD IMG XR PROCEDURES Final Resu lt documented in this encounter Visit Diagnoses Not on filedocumented in this encounter Care Teams Boiler Water Tester Relationship Specialty Start Date End Date Junior Alas MD [address] [place] [address] PCP - General 10/07/20 documented as of this encounter
--- OUTSIDE RECORDS SUMMARY | 2024-04-21 07:40 | XMS_ITS | Encounter Summary ---
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
--- OUTSIDE RECORDS SUMMARY | 2024-04-21 07:41 | XMS_ITS | Encounter Summary ---
Author Organization Healthcare Address [address] [place] [address] Care Team Providers Care Correctional Food Service Supervisor Name Role Phone Unavailable Primary Care Provider Unavailabl e Encounter Details Date Type Department Care Team (Late st Contact Info) Description 02/01/2016 [facility] Vitals Encounter [facility] OUTPATIENT CONVERSIONS [address] [place] [address] Provider, MD Amie [address] [place] [address] Social History Tobacco Use Types Packs/Day Years Used Date Smoking Tobacco: Never Assessed Sex and Gender Information Value Date Recorded Sex Assigned at Not on file Legal Sex Male 7:38 PM EDT Gender Identity Not on file Sexual Orientation Not on file documented as of this encounter Last Filed Vital Signs Vital Sign Reading Time Taken Comments Blood Pressure - - Pulse - - Temperature - - Respiratory Rate - - Oxygen Saturation - - Inhaled Oxygen Concentration - - Weight 106 kg (233 lb 1.1 oz) 02/01/2016 12:59 P M EDT Height 167.6 cm (5' 6 ) 02/01/2016 12:59 PM EDT Body Mass Index 37.62 02/01/2016 12:59 PM EDT documented in this encounter Plan of Treatment Not on file documented as of this encounter Visit Diagnoses Not on filedocumented in this encounter
--- OUTSIDE RECORDS SUMMARY | 2024-04-21 07:41 | XMS_ITS | Encounter Summary ---
Author Organization Healthcare Address [address] [place] [address] Care Team Providers Care Activity Assistant Name Role Phone Unavailable Primary Care Provider Unavailabl e Encounter Details Date Type Department Care Team (Late st Contact Info) Description 06/18/2016 [facility] AEHR Vitals Encounter [facility] OUTPATIENT CONVERSIONS [address] [place] [address] Provider, MD Amie [address] [place] [address] Social History Tobacco Use Types Packs/Day [...] - Inhaled Oxygen Concentration - - Weight 113 kg (250 lb) 06/18/2016 11:11 AM EST Height 167.6 cm (5' 6 ) 06/18/2016 11:11 AM EST Body Mass Index 40.35 06/18/2016 11:11 AM EST documented in this encounter Plan of Treatment Not on file documented as of this encounter Visit Diagnoses Not on filedocumented in this encounter
--- OUTSIDE RECORDS SUMMARY | 2024-04-21 07:41 | XMS_ITS | Encounter Summary ---
Author Organization Healthcare Address [address] [place] [address] Care Team Providers Care Wrecker Operator Name Role Phone Unavailable Primary Care Provider Unavailabl e Encounter Details Date Type Department Care Team (Late st Contact Info) Description 02/02/2015 [facility] AEHR Vitals Encounter [facility] OUTPATIENT CONVERSIONS [address] [place] [address] Provider, MD Amie [address] [place] [address] Social History Tobacco Use Types Packs/Day [...] - Inhaled Oxygen Concentration - - Weight 110 kg (243 lb 5.2 oz) 02/02/2015 1:00 PM EDT Height 167.6 cm (5' 6 ) 02/02/2015 1:00 PM EDT Body Mass Index 39.27 02/02/2015 1:00 PM EDT documented in this encounter Plan of Treatment Not on file documented as of this encounter Visit Diagnoses Not on filedocumented in this encounter
--- OUTSIDE RECORDS SUMMARY | 2024-04-21 07:41 | XMS_ITS | Encounter Summary ---
Author Organization [facility] Address [address] [place] [address] Care Team Providers Care Shellfish Harvester Name Role Phone Junior Alas MD Primary Care Provider [phone] Encounter Details Date Type Department Care Team (Latest Contact Info) Description 06/12/2022 Travel Social History Tobacco Use Types Packs/Day Years Used Date Smoking Tobacco: Never Sex and Gender Information Value Date Recorded [...] on filedocumented in this encounter Care Teams Shellfish Harvester Relationship Specialty Start Date End Date Junior Alas MD [address] [place] [address] PCP - General 10/07/20 documented as of this encounter
--- OUTSIDE RECORDS SUMMARY | 2024-04-21 07:41 | XMS_ITS | Encounter Summary ---
Author Organization Healthcare Address [address] [place] [address] Care Team Providers Care Underground Heavy Equipment Operator Name Role Phone Unavailable Primary Care Provider Unavailabl e Encounter Details Date Type Department Care Team (Late st Contact Info) Description 02/08/2017 [facility] AEHR Vitals Encounter [facility] OUTPATIENT CONVERSIONS [address] [place] [address] Provider, MD Amie [address] [place] [address] Social History Tobacco Use Types Packs/Day [...] - Inhaled Oxygen Concentration - - Weight 97.9 kg (215 lb 13.3 oz) 017 10:26 AM EDT Height 167.6 cm (5' 6 ) 02/08/2017 10:2 6 AM EDT Body Mass Index 34.84 02/08/2017 10:26 AM EDT documented in this encounter Plan of Treatment Not on file documented as of this encounter Visit Diagnoses Not on filedocumented in this encounter
--- OUTSIDE RECORDS SUMMARY | 2024-04-21 07:41 | XMS_ITS | Encounter Summary ---
Author Organization Healthcare Address [address] [id number] Care Team Providers Care Micromatic Hone Operator Name Role Phone Junior Alas MD Primary Care Provider [phone] Reason for Visit * Reason Comments Infection * Auth/Cert (Routine) Specialty Diagnoses / Procedures Referred By Joe raphael Referred To Contact Diagnoses Neal of finger flexor tenosynovitis Preston Doherty MD [address] [place] [address] Phone: tel: fax: [facility] Emergency Department [address] [place] [address] Phone: tel: Referral ID Status Reason Start Date Expiration Date Visits Re quested Visits Authorized [id number] 1 1 Encounter Details Date Type Department Care Team (Late st Contact Info) Description 06/12/2022 10:04 PM EST - 06/18/2022 5:50 PM EST Emergency [facility] Inpatient [address] [place] [address] Elisabet Castelan MD [address] [place] [address] Preston Doherty MD [address] [place] [address] Melissa Michelle MD [address] [place] [phone] Felon of finger (Primary Dx); Finger infection; Uncontrolled other specified diabetes mellitus with hyperglycemia (CMS/HCC); Closed fracture of tuft of distal phalanx of finger Discharge Disposition: Home or Self Care Social History Tobacco Use Types Packs/Day Years [...] drink first t kaykay in the morning (EYE-PROJECT 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 MANAGER) to steady your nerves or to get [...] Sign Reading Time Taken Comments Blood Pressure 129/72 06/18/2022 3:15 PM EST Pulse 65 06/18/2022 3:15 PM EST Temperature 36.8 ??C (98.3 ??F) 06/18/2022 3:15 PM ES T Respiratory Rate 16 06/18/2022 3:15 PM EST Oxygen Saturation 98% 06/18/2022 3:15 PM EST Inhaled Oxygen Concentration - - Weight 102 kg (224 lb) 06/12/2022 10:12 PM EST Height 167.6 cm (5' 6 ) 06/12/2022 10:12 PM EST Body Mass Index 36.15 06/12/2022 10:12 PM EST documented in this encounter Medications at Time of Discharge albuterol 108 (90 Base) MCG/ACT inhaler Inhale [...] mouth 1 (one) time each day. Fluticasone Furoate-Vilantero l 100-25 MCG/ACT aerosol powder Inhale 1 puff 1 (one) time each day. insulin aspart protamine-insulin aspart (NovoLOG Mix 70-30) (70-30) 100 UNIT/ML injection vial Inject under the skin 2 (two) times a day with meals. 30 units with breakfast and 40 units with supper pantoprazole (Protonix) 40 MG EC tablet Take 40 mg by mouth 1 (one) time each day before breakfast. Do not crush, chew, or split. ranolazine (Ranexa) 1000 MG 12 hr tablet Take 1 tablet by mouth 2 (two) times a day. doxycycline (Vibra-Tabs) 100 MG tablet Take 1 tablet (100 mg total) by mouth 2 (two) times a day for 19 doses. Take with a full glass of water and do not lie down for at least 30 minutes after. 19 tablet 06/16/2022 3 acetaminophen (Tylenol) 500 MG tablet Take 1,000 mg by mouth every 6 (six) hours if needed. 3 amitriptyline (Elavil) 10 MG tablet Take 10 mg by mouth every night. 3 aspirin 81 MG EC tablet Take 81 mg by mouth 1 (one) time each day. 3 dilTIAZem CD (Cardizem CD) 120 MG 24 hr capsule Take 120 mg by mouth 1 (one) time each day. 3 hydroCHLOROthiazi de (HYDRODiuril) 25 MG tablet Take 25 mg by mouth 1 (one) time each day. 3 Icosapent Ethyl (Vascepa) 1 g capsule Take 1 capsule by mouth 2 (two) times a day with meals. 3 isosorbide mononitrate ER (Imdur) 120 MG 24 hr tablet Take 120 mg by mouth 1 (one) time each day. Do not crush or chew. 3 lisinopril 5 MG tablet Take 5 mg by mouth 1 (one) time each day. 3 spironolactone (Aldactone) 25 MG tablet Take 25 mg by mouth 1 (one) time each day. 3 ticagrelor (Brilinta) 90 MG tablet Take 90 mg by mouth 2 (two) times a day. 3 documented as of this encounter Miscellaneous Notes * Progress Notes - Alec Mistry - 06/18/2022 5:23 PM EST CM received call on 2nd shift and pt needs discharge transportation back to [facility] at [address] [place] [address]. CM notes report on 06/18/22 at noon that CM will utilize taxi to transport pt back to facility as pt is not active with Medicaid transportation at this time. Uber was set up for pt to return back to [facility]. Alec Mistry PRIMARY OPERATOR * Progress Notes - Rashmi Gold - 06/18/2022 4:15 PM EST Case Management Discharge Note Ofelia Jain 62 y.o. male CSN: [id number] Admission: 06/12/2022 10:04 PM Primary Problem: Finger infection Primary Machine Stuffer Automatic: Primary Caregiver: (Self) Assistance Available at Discharge: Current Outpatient/Agency/Support Group: assisted living facility Housing Circumstances-Z Codes: N/A Patient Referred to Financial or Community Resources: N/A Discharge Facility/Level of Care Needs: Discharge Facility/Level of Care Needs: assisted living facility Patient's Choice of Community Agency(s): N/A Patient/Family Anticipated Services at Transition: Patient/Family Anticipated Services at Transition: none DME/Equipment Needed after Discharge: Equipment Currently Used at Home: none Equipment Needed After Discharge: none Follow-up: Lu Baker [address] [facility] [address] Discharge Transportation: Transportation Home at Discharge: Other(Comment) (CM will provide either an Uber or taxi) What day is the transport expected?: 06/18/22 Follow Up Transport:Transportation Anticipated: health plan transportation Additional Comments: No additional comments or CM concerns/needs at this time ENA Wright * Progress Notes - Rashmi Gold - 06/18/2022 12:00 PM EST Case Management Adult Progress Note Ofelia Sheriff [place] 62 y.o. male CSN: [id number] CURT CM contacted [employer] [facility] the [facility] to confirm if pt was able to utilize the transportation service. [facility] reported that pt utilized services in the past when he had Medicaid. However, they noted that pt has not been actively/recently utilizing the service as he no longer has Medicaid. CURT has determined that she will complete a Federal Poverty Group Assessment. CURT CM intends to utilize the taxi service to transport pt back to facility. ENA Wright * Progress Notes - Rashmi Gold - 06/18/2022 11:39 AM EST Case Management Adult Initial Progress Note Ofelia Jain 62 y.o. male CSN: [id number] Admission: 06/12/2022 10:04 PM Primary Problem: Finger infection Freight Loader reviewed chart and spoke with patient to complete this Initial Case Management Assessment. PCP: Junior Alas MD Family Medicine Specialist [address] [facility] [address] [place] [address] Emergency Contact: Extended Emergency Contact Information Primary Emergency Contact: Ofelia Jain Mobile Relation: Son Preferred language: Moldovan Power Bender Operator needed? No Secondary Emergency Contact: Luke Dwyer Mobile Relation: Other Preferred language: Moldovan Power Bender Operator needed? No Insurance: Primary Visit Coverage Payer Plan Sponsor Code Group Number Group Name MEDICARE MEDICARE A & B Primary Visit Coverage Subscriber Subscriber ID Subscriber Name Subscriber SSN Subscriber Address [id number] OFELIA JAIN [id number] [place] [address] Patient information: Primary Caregiver: (Self) Support System: ([facility]) Daily Living Activities: Functional Status: Independent Living Arrangements: Assisted Living, Custodial Type of Residence: long-term, Assisted living [address] [id number] Care Facility Name: [facility] Current DME: Equipment Currently Used at Home: none Current DME Provider: N/A Income Information: Unknown Housing Circumstances-Z Codes: N/A Patient Referred to: N/A Anticipated Discharge Date: 06/18/2022 Patient's Discharge Goal: Return to assisted living/personal care facility Assistance Available at Discharge: Self Discharge Transport: CURT WILKES will arrange transport for d/c via Medicare transportation services Follow Up Transport: Medicare transportation services Home Health / Home Infusion / Outpatient Dialysis Services: None reported. Living Will/Advance Directive/Power of Motel Food Service Supervisor /Guardian: None reported Additional Comments: No additional comments at this time ENA Wright * Progress Notes - Rashmi Gold - 06/18/2022 11:06 AM EST Case Management Adult Progress Note Ofelia Jain 62 y.o. male CSN: [id number] CURT WILKES contacted [facility]. CURT WILKES spoke with professional healthcare representative from Medical Records. CURT WILKES inquired if there were any notation regarding how patient arrived to the ED (I.e via EMS, via facility, etc.). Pipe Racker shared that there not any notations that [facility] CURT WILKES continued to review pt's chart. CURT WILKES identified a note from 2020 which noted that pt was at [facility] during that time. CURT WILKES contacted facility. CURT WILKES spoke with facility's social sciences department chair worker. tare worker reported being familiar with pt and confirmed that he resides at [facility]. emergency medical services coordinator worker went on to provide a number for Saida who she cited as a liaison/contact for [facility]. The number provided was . CURT WILKES contacted Saida from [facility] using provided number. Saida confirmed that pt was a resident at the personal care facility. Liaison stated that pt did not have active family. It was noted that pt has a son that also resides in a personal care facility. Liaison stated that pt could be sent back to facility anytime via [employer]. CURT WILKES noted that the mentioned transportation services is for Medicaid recipients. CURT WILKES shared that she could contact Medicare transportationservices for d/c transport as pt has Medicare A+B. CURT WILKES contacted [facility]'s guardianship office. CURT WILKES inquired if pt had either a familial or [id number]. [facility] guardianship office confirmed that pt does not have an active guardian. ENA Wright * Progress Notes - Rashmi Gold - 06/18/2022 10:46 AM EST Case Management Adult Progress Note Ofelia W [place] 62 y.o. male CSN: [id number] CURT WILKES contacted number listed for Luke Dwyer . Mr. Dwyer answered the call. Mr. Dwyer noted that he does not know any individuals by the name of Ofeliakam Jain. Mr. Dwyer also expressed that he resides in [place]. Mr. Dwyer requested to no longer be contacted. CURT WILKES confirmed thata notation would be made that the number is incorrect to prevent future calls. ENA Wright * Care Plan - Génesis See RN - 06/18/2022 9:32 AM EST Problem: Adult Inpatient Plan of Care Goal: Plan of Care Review Outcome: Ongoing, Progressing Flowsheets (Taken 06/18/2022 0932) Progress: improving Plan of Care Reviewed With: patient Goal: Patient-Specific Goal (Individualized) Outcome: Ongoing, Progressing Flowsheets (Taken 06/18/2022 0900) Patient/Family-Specific Goals (Include Timeframe): patient will remain free from falls and injury on 06/18/22 Individualized Care Needs: antibiotics, wound care Anxieties, Fears or Concerns: none verbalized Goal: Absence of Hospital-Acquired Illness or Injury Outcome: Ongoing, Progressing Goal: Optimal Comfort and Wellbeing Outcome: Ongoing, Progressing Goal: Readiness for Transition of Care Outcome: Ongoing, Progressing * Progress Notes - Rashmi Gold - 06/18/2022 8:08 AM EST Case Management Adult Progress Note Ofelia Jain 62 y.o. male CSN: [id number] CURT CM reviewed pt's chart. CURT CM noted that pt is MR for d/c, however, weekend SW was unable to make contact with the [facility] assisted living/usp facility. CURT CM proceeded to attempt to make contact with facility, however, call went straight to voicemail. CURT CM left voice mail. CURT CM attempted to contact pt's son. There was no response, and CURT CM was unable to leave voicemail due to mailbox not being established. CURT CM will continue to attempt at making contact throughout the day. ENA Wright * Progress Notes - Iram Taylor - 06/17/2022 1:34 PM EST Per provider, pt is medically ready for discharge but SW and staff have been unable to reach shelter or any listed contacts. SW attempted to reach [facility] (x2). Phone rings directly to a . SW left 2 messages. SW then attempted to call listed contacts: Pt's son number listed in MR [phone]-not in service Number provided by [facility] [phone]-wrong number Other contact Luke Dwyer [phone]-rings straight to not set up SW unable to reach anyone to facilitate discharge back to shelter. Iram Taylor, MSSW, PRIMARY OPERATOR * Progress Notes - Melissa Michelle MD - 06/17/2022 1:33 PM EST Subjective ' I am ok doc' Review of Systems Constitutional: Negative for chills and diaphoresis. Respiratory: Negative for shortness of breath. Gastrointestinal: Negative for abdominal distention and abdominal pain. Objective Physical Exam Vitals reviewed. Constitutional: General: He is not in acute distress. Appearance: He is not toxic-appearing. HENT: Mouth/Throat: Mouth: Mucous membranes are moist. Cardiovascular: Rate and Rhythm: Normal rate and regular rhythm. Pulses: Normal pulses. Heart sounds: Normal heart sounds. Pulmonary: Effort: Pulmonary effort is normal. Breath sounds: Normal breath sounds. Abdominal: General: Abdomen is flat. Bowel sounds are normal. Palpations: Abdomen is soft. Neurological: Mental Status: He is alert. Last Recorded Vitals Blood pressure 138/82, pulse 61, temperature 37.1 ??C (98.7 ??F), resp. rate 17, height 1.676 m (5'6 ), weight 102 kg (224 lb), SpO2 98 %. Assessment/Plan Principal Problem: Finger infection Active Problems: Diabetes mellitus type 2, insulin dependent (CMS/HCC) Class 2 severe obesity due to excess calories with serious comorbidity and body mass index (BMI) of36.0 to 36.9 in adult (CMS/HCC) Coronary artery disease involving inupiat coronary artery of inupiat heart without angina pectoris HTN (hypertension) Gastroesophageal reflux disease without esophagitis Dyslipidemia Mood disorder (CMS/HCC) Mild asthma without complication Hypoglycemia Felon of finger Normocytic anemia Hypomagnesemia Problems, Assessment & Plan Ofelia Jain is a 62 y.o. RHD male with PMHx significant for IDD and poorly controlled diabetes who presented to the [facility] on 06[facility]12 with L RF pain, swelling and was found to have an abscess that the Plastics incised and drained with return of pus by bedside in the ED. Left 4th finger infection - I&D was performed by Plastic surgery * wound cultures- Staph aureus - healing well- improving well- on Doxy * Warm soaks TID * Packing between dressing changes Left 4th finger with tuft fracture - finger splint placed by Plastic surgery Diabetes mellitus type 2 -insulin dependent with hypoglycemia - patient is on 70/30 insulin, 30 units in a.m. and 40 units in p.m. at home. Hypoglycemic on arrival. Will hold home dose of 70/30 insulin. Use correction insulin per fingerstick Coronary artery disease status post stent placement - on aspirin, carvedilol, Imdur, Brilinta, ranolazine and Lipitor Hypertension - on Imdur and carvedilol with hold parameter - patient is unsure or of his home medications Dyslipidemia - on Lipitor and Vascepa ( non formulary) Asthma - stable on room air - substitute Breo with Dulera - on albuterol inhaler as needed Mood disorder - on amitriptyline and Celexa GERD - on Protonix Obesity - complicates some aspects of care Normocytic anemia - stable - check iron study and Hemoccult Hypomagnesemia - replace Dispo : Home tomorrow as could not contact either shelter nor family * Care Plan - Génesis See RN - 06/17/2022 9:51 AM EST Problem: Adult Inpatient Plan of Care Goal: Plan of Care Review Outcome: Ongoing, Progressing Flowsheets (Taken 06/17/2022 0951) Progress: improving Plan of Care Reviewed With: patient Goal: Patient-Specific Goal (Individualized) Outcome: Ongoing, Progressing Flowsheets (Taken 06/17/2022 0900) Patient/Family-Specific Goals (Include Timeframe): patient will remain free from falls and injury on 06/17/22 Individualized Care Needs: antibiotics, wound care, fall precautions Anxieties, Fears or Concerns: none verbalized Goal: Absence of Hospital-Acquired Illness or Injury Outcome: Ongoing, Progressing Goal: Optimal Comfort and Wellbeing Outcome: Ongoing, Progressing Goal: Readiness for Transition of Care Outcome: Ongoing, Progressing * Progress Notes - Iram Taylor - 06/16/2022 4:31 PM EST Weekend SW contacted by bedside RN. Pt is medically ready for discharge but unable to reach shelter or listed contacts. SW contacted [facility] as pt was transferred from this hospital. Hospital Staff advised pt lives at [facility] ([phone]). They provided phone numbers for pt's son ([phone]) and friend of family (Luke [phone]). SW attempted to call [facility], went straight to . SW left requesting return call. SW called pt's son, not set up. No other contacts available. Iram Taylor, MSSW, PRIMARY OPERATOR * Discharge Summary - Melissa Michelle MD - 06/16/2022 3:36 PM EST Hospitalization Admit Date/Time: 06/12/2022 10:04 PM Admitting Attending: Melissa Michelle Discharge Date: 06/18/2022 Discharge Attending Physician: Melissa Michelle Md PCP name and Address: Junior Alas MD [address] [place] [address] Referring provider name and address: Lu Baker DO [address] [place] [address] Chief Concern, Brief History of Present Illness, and Hospital Course Ofelia Jain is a 62 y.o. male with past medical history coronary artery disease status post stent placement, diabetes mellitus type 2 with neuropathy, asthma, GERD and dyslipidemia. Patient presented to [facility] on 06/12/22 due to swollen left ring finger for 2-3 day;X-ray ofhis left hand showed comminuted minimally displaced fracture off the distal aspect of the ring finger consistent with tuft fracture. For possible flexor tenosynovitis he was transferred to for evaluation by the hand surgery team. He was seen by Plastics and had bedside I&D . Pending the cultures, he received vancomycin. Staph aureus hat resistant to penicillin, erythromycin and clinda grew in the cultures. At discharge transitioned to Doxycycline. Clinically the wound was healing well and pt is systemically well with normal WCC and vitals. Per Plastics - Consult OT for removable UGS; order placed 06/12 - Discussed possibility for outpatient amputation with patient if infection continues to improve and he is amenable to this plan. - Ipt should follow-up with Dr. Ta Barrios at [address] [place] [address]. Please call [phone] with questions or concerns. Advised OP follow up with Plastic surgery Surgeries and Procedures I&D Medication List .. acetaminophen 500 MG tablet Commonly known as: Tylenol Take 1,000 mg by mouth every 6 (six) hours if needed. amitriptyline 10 MG tablet Commonly known as: Elavil Take 10 mg by mouth every night. aspirin 81 MG EC tablet Take 81 mg by mouth 1 (one) time each day. atorvastatin 80 MG tablet Commonly known as: Lipitor Take 80 mg by mouth 1 (one) time each day. Breo Ellipta 100-25 MCG/ACT aerosol powder Generic drug: Fluticasone Furoate-Vilanterol Inhale 1 puff. carvedilol 12.5 MG tablet Commonly known as: Coreg Take 12.5 mg by mouth 2 (two) times a day with meals. citalopram 20 MG tablet Commonly known as: CeleXA Take 20 mg by mouth 1 (one) time each day. dilTIAZem CD 120 MG 24 hr capsule Commonly known as: Cardizem CD Take 120 mg by mouth 1 (one) time each day. doxycycline 100 MG tablet Commonly known as: Vibra-Tabs Take 1 tablet (100 mg total) by mouth 2 (two) times a day for 19 doses. Take with a full glass of water and do not lie down for at least 30 minutes after. hydroCHLOROthiazide 25 MG tablet Commonly known as: HYDRODiuril Take 25 mg by mouth 1 (one) time each day. insulin aspart protamine-insulin aspart (70-30) 100 UNIT/ML injection vial Commonly known as: NovoLOG Mix 70-30 Inject under the skin 2 (two) times a day with meals. 30 units with breakfast and 40 units with supper isosorbide mononitrate ER 120 MG 24 hr tablet Commonly known as: Imdur Take 120 mg by mouth 1 (one) time each day. Do not crush or chew. lisinopril 5 MG tablet Take 5 mg by mouth 1 (one) time each day. pantoprazole 40 MG EC tablet Commonly known as: Protonix Take 40 mg by mouth 1 (one) time each day before breakfast. Do not crush, chew, or split. ranolazine 1000 MG 12 hr tablet Commonly known as: Ranexa Take 1 tablet by mouth 2 (two) times a day. spironolactone 25 MG tablet Commonly known as: Aldactone Take 25 mg by mouth 1 (one) time each day. ticagrelor 90 MG tablet Commonly known as: Brilinta Take 90 mg by mouth 2 (two) times a day. Vascepa 1 g capsule Generic drug: Icosapent Ethyl Take 1 capsule by mouth 2 (two) times a day with meals. Ventolin HFA 108 (90 Base) MCG/ACT inhaler Generic drug: albuterol Inhale 2 puffs every 4 (four) hours if needed for wheezing. Where to Get Your Medications These medications were sent to [facility] [place] [address] doxycycline 100 MG tablet Discharge Diagnosis Medical Problems Active and Resolved Hospital Problems Hospital Diabetes mellitus type 2, insulin dependent ([facility]) (Chronic) Class 2 severe obesity due to excess calories with serious comorbidity and body mass index (BMI) of36.0 to 36.9 in adult ([facility]) (Chronic) Coronary artery disease involving inupiat coronary artery of inupiat heart without angina pectoris (Chronic) HTN (hypertension) (Chronic) Gastroesophageal reflux disease without esophagitis (Chronic) Dyslipidemia (Chronic) Mood disorder ([facility]) (Chronic) Mild asthma without complication (Chronic) * (Principal) Finger infection Hypoglycemia Felon of finger Normocytic anemia Hypomagnesemia Post Discharge Instructions Follow up with Hand surgery Outpatient Follow-Up No future appointments. Test Results Pending At Discharge None Pertinent Physical Exam At Time of Discharge Physical Exam Vitals reviewed. HENT: Mouth/Throat: Mouth: Mucous membranes are moist. Cardiovascular: Rate and Rhythm: Normal rate and regular rhythm. Pulses: Normal pulses. Heart sounds: Normal heart sounds. Pulmonary: Effort: Pulmonary effort is normal. Abdominal: General: Abdomen is flat. Bowel sounds are normal. Palpations: Abdomen is soft. Neurological: Mental Status: He is alert. Discharge Disposition/Condition Disposition: Home Condition: Stable (s/sx potential problems absent or manageable) I spent < 30 minutes of patient care and instruction time in preparation for this discharge. * Progress Notes - Melissa Michelle MD - 06/16/2022 1:33 PM EST Subjective ' I am doing good doc, I walked well with the lady' Review of Systems Constitutional: Negative for chills, diaphoresis and fever. Respiratory: Negative for cough and shortness of breath. Cardiovascular: Negative for chest pain. Gastrointestinal: Negative for abdominal distention and abdominal pain. Objective Physical Exam Constitutional: General: He is not in acute distress. Appearance: He is obese. He is not toxic-appearing. HENT: Mouth/Throat: Mouth: Mucous membranes are moist. Cardiovascular: Rate and Rhythm: Normal rate and regular rhythm. Heart sounds: Normal heart sounds. Pulmonary: Effort: Pulmonary effort is normal. Abdominal: General: Abdomen is flat. Bowel sounds are normal. Palpations: Abdomen is soft. Neurological: Mental Status: He is alert. Last Recorded Vitals Blood pressure 138/82, pulse 61, temperature 37.1 ??C (98.7 ??F), resp. rate 17, height 1.676 m (5'6 ), weight 102 kg (224 lb), SpO2 98 %. Assessment/Plan Principal Problem: Finger infection Active Problems: Diabetes mellitus type 2, insulin dependent ([facility]) Class 2 severe obesity due to excess calories with serious comorbidity and body mass index (BMI) of36.0 to 36.9 in adult ([facility]) Coronary artery disease involving inupiat coronary artery of inupiat heart without angina pectoris HTN (hypertension) Gastroesophageal reflux disease without esophagitis Dyslipidemia Mood disorder ([facility]) Mild asthma without complication Hypoglycemia Felon of finger Normocytic anemia Hypomagnesemia Problems, Assessment & Plan Ofelia Jain is a 62 y.o. RHD male with PMHx significant for IDD and poorly controlled diabetes who presented to the [facility] on 06/12 with L RF pain, swelling and was found to have an abscess that the Plastics incised and drained with return of pus by bedside in the ED. Left 4th finger infection - I&D was performed by Plastic surgery * wound cultures- Staph aureus - healing well- will transition Clinda to Doxy as Clinda resistant; will discharge home * Warm soaks TID * Packing between dressing changes Left 4th finger with tuft fracture - finger splint placed by Plastic surgery Diabetes mellitus type 2 -insulin dependent with hypoglycemia - patient is on 70/30 insulin, 30 units in a.m. and 40 units in p.m. at home. Hypoglycemic on arrival. Will hold home dose of 70/30 insulin. Use correction insulin per fingerstick Coronary artery disease status post stent placement - on aspirin, carvedilol, Imdur, Brilinta, ranolazine and Lipitor Hypertension - on Imdur and carvedilol with hold parameter - patient is unsure or of his home medications Dyslipidemia - on Lipitor and Vascepa ( non formulary) Asthma - stable on room air - substitute Breo with Dulera - on albuterol inhaler as needed Mood disorder - on amitriptyline and Celexa GERD - on Protonix Obesity - complicates some aspects of care Normocytic anemia - stable - check iron study and Hemoccult Hypomagnesemia - replace Dispo : Home today NB : Informed that there was no response fro shelter nor from family , will hold off discharge * Progress Notes - Yuli Dunn - 06/16/2022 8:36 AM EST Physical Therapy Evaluation and Discharge Patient Name: Ofelia Jain Today's Date: 06/16/2022 PT Discharge Recommendations: Home with assistance, Return to facility Equipment Recommended: Patient owns appropriate equipment History Ofelia Jain is 62 y.o. male admitted 06/12/2022 for work-up of Finger infection. Problem List Active Hospital Problems Diagnosis Date Noted Finger infection 06/13/2022 Diabetes mellitus type 2, insulin dependent ([facility]) 06/13/2022 Class 2 severe obesity due to excess calories with serious comorbidity and body mass index (BMI) of36.0 to 36.9 in adult ([facility]) 06/13/2022 Coronary artery disease involving inupiat coronary artery of inupiat heart without angina pectoris 06/13/2022 HTN (hypertension) 06/13/2022 Gastroesophageal reflux disease without esophagitis 06/13/2022 Dyslipidemia 06/13/2022 Mood disorder ([facility]) 06/13/2022 Mild asthma without complication 06/13/2022 Hypoglycemia 06/13/2022 Felon of finger 06/13/2022 Normocytic anemia 06/13/2022 Hypomagnesemia 06/13/2022 Past Medical History Patient has a past medical history of Abnormal weight gain, Asthma, Cellulitis of unspecified finger, Cellulitis of unspecified part of limb, Cellulitis, unspecified, Chronic kidney disease, Diabetesmellitus ([facility]), Diabetic polyneuropathy ([facility]), Encounter for general adult medical examination without abnormal findings, GERD (gastroesophageal reflux disease), Hyperlipidemia, Hypertension,Osteomyelitis ([facility]), Personal history of other endocrine, nutritional and metabolic disease, and Type 2 diabetes mellitus ([facility]). Past Surgical History Patient has a past surgical history that includes Toe amputation (Left) and cardiac stent. Precautions Medical Precautions: Fall precautions Subjective Pt reported he wants a walker. Participants in Care Family/Caregiver Present: No Power Bender Operator: Not Applicable Presentation Oxygen Therapy: None (Room air) Lines and Tubes: Intravenous access Pre-Session: Head of bed elevated, Lines intact Pre-Session Comments: splint on L hand/wrist Post-Session: Call light in reach, Lines intact, RN notified, Bed alarm (zone 1, 2, 3) Post-Session Comments: splint remained on L hand/wrist, pt sitting upright in bed to eat breakfast Home Living/Set-up Home Type: long-term Home Adaptive Equipment: Cane Home Layout: One level Bathroom: Tub/Shower: Tub/Shower combo Bathroom: Toilet: Standard Bathroom: Accessibility: Accessible Prior Level of Function Receives Help From: Caregiver Level of Mobility: Ambulatory- household only Mobility Melvin: Independent gait with device History of Falls: No ADL Performance: Needs assistance Bathing: Independent Upper Body Dressing: Independent Lower Body Dressing: Independent Grooming: Independent Toileting: Independent Eating: Independent Home Management Skills: Needs assist Patient/Family Goals Objective Pain Denied pain Delirium Screening Sharif Agitation Sedation Scale (RASS): Alert and calm Confusion Assessment Method-ICU (CAM-ICU/PCAM-ICU) Feature 3: Altered Level of Consciousness: Negative Cognition Overall Cognitive Status: Impaired Arousal/Alertness: Delayed responses to stimuli Mood/Behavior: Alert Orientation Level: Oriented to place, Oriented to person, Oriented to situation Orientation Level Comments: hard of hearing, pt reported hearing better from L ear Single Step Commands: With increased time, With repetition, 75% of the time Method of Communication: Verbal Right Upper Extremity Examination RUE Assessment: Within Functional Limits Manual Muscle Testing - RUE: Within functional limits Left Upper Extremity Examination LUE ROM Assessment LUE Assessment: Exceptions to WFL (hand/wrist not tested due to wearing splint) Manual Muscle Testing - LUE Manual Muscle Testing - LUE: Within functional limits except (grossly 3/5, hand/wrist not tested due to splint) Right Lower Extremity Examination RLE ROM Assessment RLE Assessment: Within Functional Limits Manual Muscle Testing - RLE Manual Muscle Testing - RLE: Within functional limits (functionally observed due to difficulty following instructions and pt hard of hearing) Sensation Light Touch: Right Lower Extremity: Mild impairment (reduced sensation distal to mid-lower leg) Left Lower Extremity Examination LLE Assessment: Within Functional Limits Manual Muscle Testing: Within functional limits (functionally observed due to difficulty following instructions and pt hard of hearing) Sensation Light Touch: Left Lower Extremity: Mild impairment (reduced sensation distal to mid-lower leg) Therapeutic Activity (8 minutes) PT provided education that pt would not need to use RW or be able to use one due to use of hand/wrist splint. Bed Mobility Bed Mobility Exam: Supine to Sit Level of Melvin: Modified Melvin Physical/Nonphysical Assist: HOB elevated Bed Mobility Exam: Sit to Supine Level of Melvin: Modified independence Physical/Nonphysical Assist: [facility] elevated Transfers Transfer Exam: Sit to stand Level of Melvin: Modified independence Assistive Device: Cane, straight Transfer Exam: Stand to Sit Level of Melvin: Modified independence Assistive Device: Cane, straight Ambulation Device: Single point cane Assistance: Modified independent Distance : 250ft Ambulation Comments: slow dee, navigated around obstacles, performed head turns and 360 deg turns without loss of balance Balance Dynamic Sitting Balance Dynamic Sitting-Balance Support: Feet supported Level of Assistance: Independent Dynamic Sitting - Interventions: bending over to reach shoes, don/doff shoes Dynamic Standing Balance Dynamic Standing-Balance Support: Right upper extremity support Dynamic Standing-Balance: Reaching for objects Dynamic Standing Level of Assistance: Independent Participation in Functional Tasks: Distant supervision Dynamic Standing - Interventions: ambulation, head turns while ambulating Standardized Assessments Standardized Assessments Standardized Assessments: [facility] 6-Clicks Mobility Assessment [facility] 6-Clicks Mobility Assessment Difficulty patient has turning over in bed (including adjusting bedclothes, sheets, and blankets)?:None Difficulty patient has sitting down on and standing up from a chair with arms (wheelchair, bedside commode, etc.)?: None Difficulty patient has moving from lying on back to sitting on the side of the bed?: None How much help does the patient need moving to and from a bed to a chair (including a wheelchair)?: None How much help does the patient need to walk in hospital room?: None How much help does the patient need climbing 3-5 steps with a railing?: A little [facility] 6-Clicks Mobility Assessment Total : 23 Assessment Pt presents for initial PT evaluation with L hand/wrist impairment, affecting his ability to complete ADLs. He has received occupational therapy to assist with these deficits. He requested a walker however he is currently ambulating at baseline level of function, demonstrated no loss of balance with dynamic tasks. PT would not recommend use of platform walker due to pt with impaired cognition and insight. Additionally, he is able to perform needed tasks with continued use of cane which is familiar to him. No additional inpatient PT services indicated at this time. Recommend continued ambulation with nursing staff to maintain mobility. Impairments: Impaired balance, Impaired sensation/sensory processing, Impaired executive functioning, Decreased endurance, ventilation, and/or gas exchange, Impaired gait dynamics/performance Participation Restrictions: Community leisure, Home management, Self-care Diagnosis: decreased functional independence due to L hand impairment and use of splint Eval Complexity History Profile: 1 - 2 personal factors and/or comorbidities Clinical Presentation: Evolving clinical presentation with changing characteristics Clinical Decision Making: Moderate complexity PT Recommendations Discharge Destination: Home with assistance, Return to facility Discharge Equipment: Patient owns appropriate equipment Plan Patient no longer demonstrates need for inpatient physical therapy services. Patient to be discharged from physical therapy. Written by Yuli Dunn on 06/16/22 at 8:36 AM. * Progress Notes - Melissa Michelle MD - 06/16/2022 8:30 AM EST Subjective ' I am good' Review of Systems Constitutional: Negative for chills and fever. Cardiovascular: Negative for chest pain. Gastrointestinal: Negative for abdominal pain. Objective Physical Exam Vitals reviewed. Constitutional: General: He is not in acute distress. Appearance: He is not toxic-appearing. HENT: Mouth/Throat: Mouth: Mucous membranes are moist. Cardiovascular: Rate and Rhythm: Normal rate and regular rhythm. Pulmonary: Effort: Pulmonary effort is normal. Breath sounds: Normal breath sounds. Abdominal: General: Abdomen is flat. Palpations: Abdomen is soft. Neurological: Mental Status: He is alert. Last Recorded Vitals Blood pressure 100/60, pulse 68, temperature 37.1 ??C (98.7 ??F), resp. rate 18, height 1.676 m (5'6 ), weight 102 kg (224 lb), SpO2 97 %. Assessment/Plan Principal Problem: Finger infection Active Problems: Diabetes mellitus type 2, insulin dependent ([facility]) Class 2 severe obesity due to excess calories with serious comorbidity and body mass index (BMI) of36.0 to 36.9 in adult ([facility]) Coronary artery disease involving inupiat coronary artery of inupiat heart without angina pectoris HTN (hypertension) Gastroesophageal reflux disease without esophagitis Dyslipidemia Mood disorder ([facility]) Mild asthma without complication Hypoglycemia Felon of finger Normocytic anemia Hypomagnesemia Problems, Assessment & Plan Ofelia Jain is a 62 y.o. RHD male with PMHx significant for IDD and poorly controlled diabetes who presented to the [facility] on 06/12 with L RF pain, swelling and was found to have an abscess that the Plastics incised and drained with return of pus by bedside in the ED. Left 4th finger infection - I&D was performed by Plastic surgery * wound cultures- Staph aureus - resistant to clinda - will start doxy * Warm soaks TID * Packing between dressing changes Left 4th finger with tuft fracture - finger splint placed by Plastic surgery Diabetes mellitus type 2 -insulin dependent with hypoglycemia - patient is on 70/30 insulin, 30 units in a.m. and 40 units in p.m. at home. Hypoglycemic on arrival. Will hold home dose of 70/30 insulin. Use correction insulin per fingerstick Coronary artery disease status post stent placement - on aspirin, carvedilol, Imdur, Brilinta, ranolazine and Lipitor Hypertension - on Imdur and carvedilol with hold parameter - patient is unsure or of his home medications Dyslipidemia - on Lipitor and Vascepa ( non formulary) Asthma - stable on room air - substitute Breo with Dulera - on albuterol inhaler as needed Mood disorder - on amitriptyline and Celexa GERD - on Protonix Obesity - complicates some aspects of care Normocytic anemia - stable - check iron study and Hemoccult Hypomagnesemia - replace Dispo : Home today , PT ok with cane * Progress Notes - Melissa Michelle MD - 06/15/2022 5:17 PM EST Subjective ' I am not steady on my feet, I use a cane but want to try the walker' Review of Systems Constitutional: Negative for chills and fever. Respiratory: Negative for shortness of breath. Gastrointestinal: Negative for abdominal distention and abdominal pain. Objective Physical Exam Vitals reviewed. Constitutional: General: He is not in acute distress. Appearance: He is not toxic-appearing. HENT: Mouth/Throat: Mouth: Mucous membranes are moist. Cardiovascular: Rate and Rhythm: Normal rate and regular rhythm. Pulses: Normal pulses. Heart sounds: Normal heart sounds. Pulmonary: Effort: Pulmonary effort is normal. Abdominal: General: Abdomen is flat. Bowel sounds are normal. Neurological: Mental Status: He is alert. Last Recorded Vitals Blood pressure 105/65, pulse 70, temperature 36.4 ??C (97.6 ??F), resp. rate 18, height 1.676 m (5'6 ), weight 102 kg (224 lb), SpO2 98 %. Assessment/Plan Principal Problem: Finger infection Active Problems: Diabetes mellitus type 2, insulin dependent ([facility]) Class 2 severe obesity due to excess calories with serious comorbidity and body mass index (BMI) of36.0 to 36.9 in adult ([facility]) Coronary artery disease involving inupiat coronary artery of inupiat heart without angina pectoris HTN (hypertension) Gastroesophageal reflux disease without esophagitis Dyslipidemia Mood disorder ([facility]) Mild asthma without complication Hypoglycemia Felon of finger Normocytic anemia Hypomagnesemia Problems, Assessment & Plan Ofelia Jain is a 62 y.o. RHD male with PMHx significant for IDD and poorly controlled diabetes who presented to the [facility] on 06/12 with L RF pain, swelling and was found to have an abscess that the Plastics incised and drained with return of pus by bedside in the ED. Left 4th finger infection - I&D was performed by Plastic surgery * wound cultures- Staph aureus - healing well- will transition to Clinda, if continuing to improve discharge home * Warm soaks TID * Packing between dressing changes Left 4th finger with tuft fracture - finger splint placed by Plastic surgery Diabetes mellitus type 2 -insulin dependent with hypoglycemia - patient is on 70/30 insulin, 30 units in a.m. and 40 units in p.m. at home. Hypoglycemic on arrival. Will hold home dose of 70/30 insulin. Use correction insulin per fingerstick Coronary artery disease status post stent placement - on aspirin, carvedilol, Imdur, Brilinta, ranolazine and Lipitor Hypertension - on Imdur and carvedilol with hold parameter - patient is unsure or of his home medications Dyslipidemia - on Lipitor and Vascepa ( non formulary) Asthma - stable on room air - substitute Breo with Dulera - on albuterol inhaler as needed Mood disorder - on amitriptyline and Celexa GERD - on Protonix Obesity - complicates some aspects of care Normocytic anemia - stable - check iron study and Hemoccult Hypomagnesemia - replace Dispo : Home tomorrow , PT consult possible walker * Payer Review Note - Ambreen Zhang RN - 06/15/2022 3:21 PM EST Utilization Review - Code 44 - Admission referred to [employer]/EHR. Per Dr. Graham, observation serviceswere recommended. Dr. Michelle was contacted and agreed with determination. Admit order status was updated and Medicare paperwork delivered to patient. Saida Zhang RN * Progress Notes - Maycol Katlyn M - 06/15/2022 8:23 AM EST Occupational Therapy Treatment Patient Name: Ofelia Jain Today's Date: 06/15/2022 OT Discharge Recommendations: Home with assistance Equipment Recommended: Patient owns appropriate equipment Subjective What will I do with that Participants in Care Family/Caregiver Present: No Presentation Oxygen Therapy: None (Room air) Lines and Tubes: Intravenous access Pre-Session: Head of bed elevated, Lines intact Post-Session: Head of bed elevated, Lines intact, RN notified, Call light in reach Precautions None Objective Pain No c/o pain Delirium Screening Sharif Agitation Sedation Scale (RASS): Alert and calm Confusion Assessment Method-ICU (CAM-ICU/PCAM-ICU) Feature 3: Altered Level of Consciousness: Negative Therapeutic Exercise (11 minutes) OT assisted pt in gentle PROM and AROM with focus on Left UE digits. Gentle stretching and hold provided, as well as pt completing flexion and extension and opposition. Splinting (12 minutes) Location: Left UE Type: Pre-Fabricated Pre-Fabricated: Resting hand Splinting Education: Fitting, Don[place], [place], Wear schedule Splinting Comments: Pt and RN made aware of splinting schedule and that pt will not be able to don the splint himself due to cognition. Assessment Pt engaged in UE exercises and splint fitting. Pt will require assist and reminders to apply splint. Pt is to wear splint at night and intermittently throughout the day for rest and protection. OT Recommendations Discharge Destination: Home with assistance Discharge Equipment: Patient owns appropriate equipment Plan Continue OT POC Goals OT GOAL DETAILS Goal Established Date Time Frame Goal Status OT Goal 1: Pt will engage in UE HEP to increase strength and ROM for ADL and IADL activities. 06/14/22 1 week Written by Katlyn Severino on 06/15/22 at 9:21 AM. * Progress Notes - Katlyn Severino - 06/14/2022 9:31 AM EST Occupational Therapy Evaluation Patient Name: Ofelia Jain Today's Date: 06/14/2022 OT Discharge Recommendations: Home with assistance Equipment Recommended: Patient owns appropriate equipment History Ofelia Jain is 62 y.o. male admitted 06/12/2022 for work-up of Finger infection. Problem List Active Hospital Problems Diagnosis Date Noted Finger infection 06/13/2022 Diabetes mellitus type 2, insulin dependent ([facility]) 06/13/2022 Class 2 severe obesity due to excess calories with serious comorbidity and body mass index (BMI) of36.0 to 36.9 in adult ([facility]) 06/13/2022 Coronary artery disease involving inupiat coronary artery of inupiat heart without angina pectoris 06/13/2022 HTN (hypertension) 06/13/2022 Gastroesophageal reflux disease without esophagitis 06/13/2022 Dyslipidemia 06/13/2022 Mood disorder ([facility]) 06/13/2022 Mild asthma without complication 06/13/2022 Hypoglycemia 06/13/2022 Felon of finger 06/13/2022 Normocytic anemia 06/13/2022 Hypomagnesemia 06/13/2022 Past Medical History Patient has a past medical history of Abnormal weight gain, Asthma, Cellulitis of unspecified finger, Cellulitis of unspecified part of limb, Cellulitis, unspecified, Chronic kidney disease, Diabetesmellitus ([facility]), Diabetic polyneuropathy ([facility]), Encounter for general adult medical examination without abnormal findings, GERD (gastroesophageal reflux disease), Hyperlipidemia, Hypertension,Osteomyelitis ([facility]), Personal history of other endocrine, nutritional and metabolic disease, and Type 2 diabetes mellitus ([facility]). Past Surgical History Patient has a past surgical history that includes Toe amputation (Left) and cardiac stent. Precautions None Subjective Participants in Care Family/Caregiver Present: No Presentation Oxygen Therapy: None (Room air) Lines and Tubes: Intravenous access Pre-Session: Head of bed elevated, Lines intact Post-Session: Head of bed elevated, Lines intact, RN notified, Call light in reach Home Living/Set-up Home Type: long-term Home Adaptive Equipment: Cane Home Layout: One level Bathroom: Tub/Shower: Tub/Shower combo Bathroom: Toilet: Standard Bathroom: Accessibility: Accessible Prior Level of Function Receives Help From: Caregiver Level of Mobility: Ambulatory- household only Mobility Melvin: Independent gait with device History of Falls: No ADL Performance: Needs assistance Bathing: Independent Upper Body Dressing: Independent Lower Body Dressing: Independent Grooming: Independent Toileting: Independent Eating: Independent Home Management Skills: Needs assist Patient/Family Goals Statement pt agreeable to assessment Objective Pain No c/o pain Delirium Screening Sharif Agitation Sedation Scale (RASS): Alert and calm Confusion Assessment Method-ICU (CAM-ICU/PCAM-ICU) Feature 3: Altered Level of Consciousness: Negative Cognition Overall Cognitive Status: Impaired Arousal/Alertness: Delayed responses to stimuli Mood/Behavior: Alert, Confused Orientation Level: Oriented to place, Oriented to person Single Step Commands: With increased time, With repetition, 75% of the time Right Upper Extremity Examination RUE ROM Assessment RUE Assessment: Within Functional Limits Manual Muscle Testing - RUE: Within functional limits Left Upper Extremity Examination LUE ROM Assessment LUE Assessment: Within Functional Limits (with cues for ROM with digits) Manual Muscle Testing - LUE: (grossly 3/5) Therapeutic Exercise OT unwrapped dressing to observe ROM with digits. Pt is able to fully extend and achieve 75% of flexion (limitations due to edema). OT demonstrated and assisted with ROM/exercises. Due to cognitive status and pt understanding, he will likely not follow through with an HEP without assistance. Standardized Assessments DASH Open a Tight or New jar: Moderate difficulty Write: No difficulty Turn a [place]: Moderate difficulty Prepare a Meal: Moderate difficulty Push Open a Heavy Door: Mild difficulty Place an Object on a Shelf Above Your Head: Mild difficulty Do heavy system auditor (eg wash lomeli, wash floors): Mild difficulty Garden or Do Yard Work: Mild difficulty Make a Bed: Moderate difficulty Carry a shopping bag or briefcase: Moderate difficulty Carry a Heavy Object: Mild difficulty Change a Lightbulb Overhead: Mild difficulty Wash or Blow Dry Your Hair: Mild difficulty Wash your back: Moderate difficulty Put on a Pullover Sweater: Moderate difficulty Use a knife to cut food: Moderate difficulty Recreational Activities Which Require Little Effort: Mild difficulty Recreational activities in which you take some force or impact through your arm, shoulder or hand (eg golf, hammering, tennis, etc): Mild difficulty Recreational Activities in Which You Move Your Arm Freely: Mild difficulty Manage Transportation Needs: Moderate difficulty Sexual Activities: Moderate difficulty During the past week, to what extent has your arm, shoulder or hand prblem interfered with your normal social activities with f amily, friends,neighbors or groups? : Moderately During the past week, were you limited in your work or other regular daily activities as a result of you arm, shoulder or hand problem?: Moderately limited Arm, shoulder or hand pain (in the last one week): Moderate Arm, shoulder or hand pain when you performed any specific activity (in the last one week): Moderate Tingling (pins and needles) in your arm, shoulder or hand (in the last one week) : Moderate Weakness in your arm shoulder or hand (in the last one week).: Moderate Stiffness in your arm shoulder or hand (in the last one week).: Moderate during the past week, how much difficulty have you had sleeping because of the pain in your arm, shoulder or hand?: Moderate difficulty I feel less capable, less confident or less useful because of my arm, shoulder or hand problem: Agree DASH Score: 40.83 Assessment Pt seen for initial evaluation only. OT will continue to monitor for splinting needs. This was discussed with MD and RN. Dressing changes are typically not uniform, creating difficulty with fabricating a form fitting splint. At this time, pt has functional ROM with digits. OT Findings: Decreased upper extremity range of motion, Decreased upper extremity strength, Impaired fine motor control/coordination Evaluation/Treatment Tolerance: Patient limited by pain Barriers to Discharge: Ability to acquire knowledge Eval Complexity Occupational Profile: Brief history including review of medical/therapy records relating to presenting problem Performance Deficits: Leisure, Habits, Routines, Physical Clinical Decision Making: Low Overall Eval complexity: Low OT Recommendations Discharge Destination: Home with assistance Discharge Equipment: Patient owns appropriate equipment Plan Planned OT Interventions ROM OT Frequency 4 - 6 times per week OT Duration 1 week Goals OT GOAL DETAILS Time Frame OT Goal 1: Pt will engage in UE HEP to increase strength and ROM for ADL and IADL activities. 1 week Written by Katlyn Severino on 06/14/22 at 1:20 PM. * Progress Notes - Jaciel Tena MD - 06/14/2022 9:15 AM EST Plastic and Reconstructive Surgery Progress Note Subjective NAEO. Pt afebrile with stable vitals wound appearance improving with packing. Denies fevers or chills. Reports improvement in movement of hte finger. Review of Systems: A 14 point review of systems was reviewed and is negative except as mentioned inthe HPI. Objective Temp (24hrs), Av.8 ??C (98.3 ??F), Min:36.7 ??C (98.1 ??F), Max:37 ??C (98.6 ??F) Vitals: 06/14/22 0702 BP: (!) 153/84 Pulse: 66 Resp: Temp: 36.8 ??C (98.3 ??F) SpO2: 98% Intake/Output Summary (Last 24 hours) at 06/14/2022 0915 Last data filed at 06/13/2022 1851 Gross per 24 hour Intake 400 ml Output -- Net 400 ml Labs in last 18 hours CBC WBC 6.54 Hb 9.4 (L) Plt 166 Hct 27.0 (L) ANC ?? INR ??, PTT ??, Anti-Xa ?? BMP Na ?? Cl ?? BUN ?? Glu ?? K ?? Co2 ?? Cr ?? Ca ?? iCa ?? Mg ??, Phos ?? Lactate ?? LFT AST ?? AlkPhos ?? T Prot ?? ALK ?? Bili ?? Alb ?? D.Bili ?? Physical Exam GEN: NAD, resting comfortably in bed HEENT: NC/AT, EOMI, MMM CV: Well perfused, but evidence of venous stasis dermatitis in LE PULM: No increased work of breathing MSK: Focused examination of LUE reveals improvement in wound appearance. Swelling improving. No evidence of purulent drainage Assessment/Plan Active Hospital Problems Diagnosis Date Noted Finger infection 06/13/2022 Diabetes mellitus type 2, insulin dependent ([facility]) 06/13/2022 Class 2 severe obesity due to excess calories with serious comorbidity and body mass index (BMI) of36.0 to 36.9 in adult ([facility]) 06/13/2022 Coronary artery disease involving inupiat coronary artery of inupiat heart without angina pectoris 06/13/2022 HTN (hypertension) 06/13/2022 Gastroesophageal reflux disease without esophagitis 06/13/2022 Dyslipidemia 06/13/2022 Mood disorder ([facility]) 06/13/2022 Mild asthma without complication 06/13/2022 Hypoglycemia 06/13/2022 Felon of finger 06/13/2022 Normocytic anemia 06/13/2022 Hypomagnesemia 06/13/2022 Ofelia Jain is a 62 y.o. RHD male with PMHx significant for IDD and poorly controlled diabetes who presented to the [facility] on 06/12 with L RF pain, swelling. Pt history, physical exam andimaging most consistent with felon of the L RF. Continues to improve with dressing changes. On further inspection of the OSH radiographs there appears to be some concern for developing OM of the distal aspect of the distal phalanx. Discussed this with the patient, the etiology and the management plans. As long as the patient continues to clear his infection with antibiotics, no emergent intervention is required. Instead, the patient can perform antibiotic treatment and have outpatient surgical intervention if desired. Pt should have OT consult for splint, as he did not have splint at bedside this AM. Recommendations are as follows: - Continue TID soaks and packing - Consult OT for removable UGS; order placed 06/12 - Recommend antibiotics per primary - Discussed possibility for outpatient amputation with patient if infection continues to improve and he is amenable to this plan. - If interval worsening of infection, please contact [facility] for re-evaluation ([phone]) - If discharged, pt should follow-up with Dr. Ta Barrios at [address] [address]. Please call [phone]) with questions or concerns. Jaciel Tena MD, PhD Plastic and Reconstructive Surgery Cosigned by Ta Barrios MD at 06/21/2022 9:11 PM EST Associated attestation - aT Barrios MD - 06/21/2022 9:11 PM EST Signature Only * Progress Notes - Melissa Michelle MD - 06/14/2022 8:19 AM EST Subjective ' It hurts less, swelling better too' Review of Systems Constitutional: Negative for chills, diaphoresis and fever. Cardiovascular: Negative for leg swelling. Gastrointestinal: Negative for abdominal pain. Objective Physical Exam Vitals reviewed. Constitutional: General: He is not in acute distress. Appearance: He is not toxic-appearing. HENT: Mouth/Throat: Mouth: Mucous membranes are moist. Cardiovascular: Rate and Rhythm: Regular rhythm. Heart sounds: Normal heart sounds. Pulmonary: Effort: Pulmonary effort is normal. Abdominal: General: Abdomen is flat. Bowel sounds are normal. Palpations: Abdomen is soft. Neurological: Mental Status: He is alert. Last Recorded Vitals Blood pressure (!) 153/84, pulse 66, temperature 36.8 ??C (98.3 ??F), resp. rate 18, height 1.676 m(5' 6 ), weight 102 kg (224 lb), SpO2 98 %. Assessment/Plan Principal Problem: Finger infection Active Problems: Diabetes mellitus type 2, insulin dependent ([facility]) Class 2 severe obesity due to excess calories with serious comorbidity and body mass index (BMI) of36.0 to 36.9 in adult ([facility]) Coronary artery disease involving inupiat coronary artery of inupiat heart without angina pectoris HTN (hypertension) Gastroesophageal reflux disease without esophagitis Dyslipidemia Mood disorder ([facility]) Mild asthma without complication Hypoglycemia Felon of finger Normocytic anemia Hypomagnesemia Problems, Assessment & Plan Ofelia Jain is a 62 y.o. RHD male with PMHx significant for IDD and poorly controlled diabetes who [facility] with L RF pain, swelling and was found to have an abscess that the Plastics incised and drained with return of pus by bedside in the ED. Left 4th finger infection - I&D was performed by Plastic surgery * wound cultures- Gram pos cocci in pairs * Warm soaks TID * Packing between dressing changes - continue vancomycin and Rocephin, started on 06/12 - Cx Staph aureus- pending sensitivities - choose appropriate abx before discharge Left 4th finger with tuft fracture - finger splint placed by Plastic surgery Diabetes mellitus type 2 insulin dependent with hypoglycemia - patient is on 70/30 insulin, 30 units in a.m. and 40 units in p.m. at home. Hypoglycemic on arrival. Will hold home dose of 70/30 insulin. Use correction insulin per fingerstick - check A1c Coronary artery disease status post stent placement - on aspirin, carvedilol, Imdur, Brilinta, ranolazine and Lipitor Hypertension - on Imdur and carvedilol with hold parameter - patient is unsure or of his home medications Dyslipidemia - on Lipitor and Vascepa ( non formulary) Asthma - stable on room air - substitute Breo with Dulera - on albuterol inhaler as needed Mood disorder - on amitriptyline and Celexa GERD - on Protonix Obesity - complicates some aspects of care Normocytic anemia - stable - check iron study and Hemoccult Hypomagnesemia - replace Dispo : Home tomorrow * Significant Event - Melissa Michelle MD - 06/13/2022 4:28 PM EST No new complaints Left 4th finger infection - I&D was performed by Plastic surgery * wound cultures- Gram pos cocci in pairs * Warm soaks TID * Packing between dressing changes - continue vancomycin and Rocephin, started on 06/12 Left 4th finger with tuft fracture - finger splint placed by Plastic surgery Diabetes mellitus type 2 insulin dependent with hypoglycemia - patient is on 70/30 insulin, 30 units in a.m. and 40 units in p.m. at home. Hypoglycemic on arrival. Will hold home dose of 70/30 insulin. Use correction insulin per fingerstick - check A1c Coronary artery disease status post stent placement - on aspirin, carvedilol, Imdur, Brilinta, ranolazine and Lipitor Hypertension - on Imdur and carvedilol with hold parameter - patient is unsure or of his home medications Dyslipidemia - on Lipitor and Vascepa ( non formulary) Asthma - stable on room air - substitute Breo with Dulera - on albuterol inhaler as needed Mood disorder - on amitriptyline and Celexa GERD - on Protonix Obesity - complicates some aspects of care Normocytic anemia - stable - check iron study and Hemoccult Hypomagnesemia - replace * Progress Notes - Simeon Babcock - 06/13/2022 1:12 AM EST Pharmacokinetic Consult - Vancomycin HPI and Hospital Course: Ofelia Jain is a 62 y.o. male admitted for Finger infection. Pharmacy consulted to assist with management of vancomycin therapy for cellulitis. Creatine clearence estimated to be 70 ml/min based on a SrCr of 1.2 mg/dl (from outside hospital) Population Kinetics Calculations: Vd (L): 61.2 Ke (h-1): 0.63 Half-life (hr): 11.09 Cl (L/h): 3.83 Required Total Daily Dose (mg): 1913 Rounded Total Daily Dose (mg): 2000 Cmax, exp (mg/L): 31.0 Ctr, exp (mg/L): 16.1 AUCexp: 523 Assessment/Plan: 1. Recommend to initiate vancomycin 1750 loading dose, followed by vancomycin 1000 mg every 12 hours maintenance dose to target AUC 400-600 and trough 10-20 mcg/mL. 2. Recommend to obtain 2 level kinetics prior to 4th or 5th dose of current regimen to assess safety and efficacy. 3. Closely monitor renal function while patient is receiving antimicrobial therapy. Would suggest obtaining CBC, BMP at least 2-3 times weekly while admitted to assess renal function (SCr/BUN/UOP). 4. De-escalate therapy when clinically appropriate. Thank you for this consult. Please reach out to pharmacy for any additional questions. Pharmacy will continue to follow. Submitted by: Simeon Babcock 06/13/2022 1:08 AM * H&P - Yayo Solis APRN - 06/13/2022 12:49 AM ESTAssociated Order(s): Consult to Hospital Medicine - [facility] Consult to [facility] Consult performed by: Yayo Solis APRN Consult ordered by: ASHLEIGH Renner Chief complaint: Swollen left ring finger History Of Present Illness Ofelia Jain is a 62 y.o. male with past medical history coronary artery disease status post stent placement, diabetes mellitus type 2 with neuropathy, asthma, GERD and dyslipidemia. Patient presented to [facility] on 06[facility]12[facility]22 due to swollen left ring finger for 2-3 days with significant increased swelling yesterday morning. Patient is a nail biter. Patient denies any trauma to his finger. X-ray of his left hand showed comminuted minimally displaced fracture off the distal aspect of the ring finger consistent with tuft fracture. There was concern for possible flexor tenosynovitis and he was transferred to for evaluation by the hand surgery team. Patient received vancomycin and Rocephin prior to transfer. Patient denies fever, chest pain, palpitation, nausea, vomiting, abdominal pain, or urinary symptom. Patient stated he had diaphoresis earlier. Past Medical History Past Medical History: Diagnosis Date Abnormal weight gain Abnormal weight gain Asthma Cellulitis of unspecified finger Cellulitis of unspecified finger Cellulitis of unspecified part of limb Cellulitis of hand Cellulitis, unspecified Cellulitis Chronic kidney disease Diabetes mellitus ([facility]) Diabetic polyneuropathy ([facility]) Encounter for general adult medical examination without abnormal findings Normal routine physical examination GERD (gastroesophageal reflux disease) Hyperlipidemia Hypertension Osteomyelitis ([facility]) Personal history of other endocrine, nutritional and metabolic disease History of type 2 diabetes mellitus Type 2 diabetes mellitus ([facility]) Surgical History Past Surgical History: Procedure Laterality Date CARDIAC STENT TOE AMPUTATION Left Partial toe Family History Problem Relation Name Age of Onset Diabetes Mother Social History He reports that he has never smoked. He has never used smokeless tobacco. He reports that he does not currently use alcohol. He reports that he does not use drugs. Allergies Fluogen [influenza virus vaccine] and Morphine Scheduled: [START ON 06/14/2022] amitriptyline, 10 mg, Oral, Nightly aspirin, 81 mg, Oral, Daily atorvastatin, 80 mg, Oral, Nightly carvedilol, 12.5 mg, Oral, BID [START ON 06/14/2022] cefTRIAXone, 1 g, Intravenous, q24h citalopram, 20 mg, Oral, Daily [START ON 06/14/2022] enoxaparin, 40 mg, Subcutaneous, Daily insulin lispro, 0-5 Units, Subcutaneous, TID with meals insulin lispro, 0-3 Units, Subcutaneous, Twice at night [START ON 06/14/2022] isosorbide mononitrate ER, 120 mg, Oral, Daily magnesium sulfate, 2 g, Intravenous, Once [START ON 06/14/2022] mometasone-formoterol, 2 puff, Inhalation, BID pantoprazole, 40 mg, Oral, Daily before breakfast ranolazine, 1,000 mg, Oral, BID ticagrelor, 90 mg, Oral, BID vancomycin, 1,000 mg, Intravenous, q12h Continuous: As needed: albuterol, 2 puff, q6h PRN glucose, 15 grams of glucose, q15 min PRN Or dextrose 10 %, 12.5 g, q15 min PRN dextrose 10 %, 25 g, q15 min PRN Or glucose, 30 grams of glucose, q15 min PRN glucagon (human recombinant), 1 mg, q15 min PRN glucose, 15 grams of glucose, q15 min PRN sodium chloride, 10 mL, q8h PRN And sodium chloride, 10 mL, PRN Prior to Admission medications Not on File Labs (in last 24 hours): CBC: Lab Results Component Value Date WBC 8.76 06/13/2022 RBC 3.17 (L) 06/13/2022 HGB 10.6 (L) 06/13/2022 HCT 30.6 (L) 06/13/2022 PLT 189 06/13/2022 MCV 97 06/13/2022 MCH 33.4 (H) 06/13/2022 MCHC 34.6 06/13/2022 RDW 13.8 06/13/2022 NRBC 0.0 06/13/2022 Differential: Lab Results Component Value Date WBC 8.76 06/13/2022 NEUTOPHILPCT 69.0 06/13/2022 LYMPHOPCT 17.0 06/13/2022 MONOPCT 10.0 06/13/2022 EOSPCT 4.0 06/13/2022 Coagulation: Lab Results Component Value Date INR 1.1 06/13/2022 Renal: Lab Results Component Value Date NA 132 (L) 06/13/2022 K 4.5 06/13/2022 CL 98 06/13/2022 CO2 23 06/13/2022 BUN 17 06/13/2022 CREATININE 1.05 06/13/2022 GLUCOSE 108 (H) 06/13/2022 CALCIUM 9.0 06/13/2022 MG 1.5 (L) 06/13/2022 PHOS 4.2 06/13/2022 Liver: Lab Results Component Value Date AST 39 06/13/2022 ALT 13 06/13/2022 BILITOT 0.8 06/13/2022 Glucose: Lab Results Component Value Date PGLU 63 (L) 06/12/2022 Lab Results Component Value Date HGBA1C 11.3 (H) 05/14/2016 Microbiology: Results Procedure Component Value Units Date/Time Multi Drug Resistance Test [[id number]] Order Status: Sent Specimen: Swab from Nares and [place] Rectal SARS-CoV-2 COVID-19/Influenza A,B [[id number]] Order Status: Sent Specimen: Swab from Nasopharynx Wound Culture and Gram Stain [[id number]] Order Status: Sent Specimen: Swab from Other (type in source) Imaging (in last 24 hours): Last Recorded Vitals Vitals: 06/12/22 2212 06/12/222214 BP: 135/63 Pulse: 65 Resp: 17 Temp: 36.4 ??C (97.5 ??F) TempSrc: Oral SpO2: 100% 99% Weight: 102 kg (224 lb) Height: 1.676 m (5' 6 ) No intake or output data in the 24 hours ending 06/13/22 0049 Admission weight: Weight: 102 kg (224 lb) Review of Systems Constitutional: Positive for diaphoresis. Cardiovascular: Positive for leg swelling. Skin: Positive for wound. All other systems reviewed and are negative. Physical Exam Constitutional: Appearance: He is obese. HENT: Mouth/Throat: Mouth: Mucous membranes are moist. Pharynx: Oropharynx is clear. Eyes: Extraocular Movements: Extraocular movements intact. Conjunctiva/sclera: Conjunctivae normal. Pupils: Pupils are equal, round, and reactive to light. Cardiovascular: Rate and Rhythm: Normal rate and regular rhythm. Pulses: Dorsalis pedis pulses are 1+ on the right side and 1+ on the left side. Posterior tibial pulses are 1+ on the right side and 1+ on the left side. Heart sounds: Normal heart sounds. Comments: Chronic venous stasis changes on lower extremities, Pulmonary: Effort: Pulmonary effort is normal. Breath sounds: Examination of the right-upper field reveals decreased breath sounds. Examination ofthe left-upper field reveals decreased breath sounds. Examination of the right-middle field revealsdecreased breath sounds. Examination of the left-middle field reveals decreased breath sounds. [place] of the right-lower field reveals decreased breath sounds. Examination of the left-lower field reveals decreased breath sounds. Decreased breath sounds present. Abdominal: General: Abdomen is flat. Bowel sounds are normal. Palpations: Abdomen is soft. Musculoskeletal: General: Normal range of motion. Right lower le+ Edema present. Left lower le+ Edema present. Skin: General: Skin is warm. Capillary Refill: Capillary refill takes less than 2 seconds. Comments: Left hand wrapped with finger splint. Neurological: Mental Status: He is alert and oriented to person, place, and time. Psychiatric: Mood and Affect: Mood normal. Behavior: Behavior normal. Thought Content: Thought content normal. Judgment: Judgment normal. Assessment and plan: Principal problem: Finger infection - Principal Problem: Finger infection Active Problems: Diabetes mellitus type 2, insulin dependent ([facility]) Class 2 severe obesity due to excess calories with serious comorbidity and body mass index (BMI) of36.0 to 36.9 in adult ([facility]) Coronary artery disease involving inupiat coronary artery of inupiat heart without angina pectoris HTN (hypertension) Gastroesophageal reflux disease without esophagitis Dyslipidemia Mood disorder ([facility]) Mild asthma without complication Hypoglycemia Felon of finger Left 4th finger infection - I&D was performed by Plastic surgery and recommended following * Follow-up wound cultures; tailor antibiotics to cultures * Warm soaks TID * Packing between dressing changes * Would recommend OT consult for removable UGS in AM. - continue vancomycin and Rocephin, started on 06/12 Left 4th finger with tuft fracture - finger splint placed by Plastic surgery Diabetes mellitus type 2 insulin dependent with hypoglycemia - patient is on 70/30 insulin, 30 units in a.m. and 40 units in p.m. at home. Hypoglycemic on arrival. Will hold home dose of 70/30 insulin. Use correction insulin per fingerstick - check A1c Coronary artery disease status post stent placement - on aspirin, carvedilol, Imdur, Brilinta, ranolazine and Lipitor Hypertension - on Imdur and carvedilol with hold parameter - patient is unsure or of his home medications Dyslipidemia - on Lipitor and Vascepa ( non formulary) Asthma - stable on room air - substitute Breo with Dulera - on albuterol inhaler as needed Mood disorder - on amitriptyline and Celexa GERD - on Protonix Obesity - complicates some aspects of care Normocytic anemia - stable - check iron study and Hemoccult Hypomagnesemia - replace Diet Adult diet Diet texture: Regular; Carbohydrate restriction: Consistent CHO 2 ([id number] Armond, 80 g/meal); Fat restriction: Cardiac DVT prophylaxis Prophylactic Lovenox Code status Full Code * Consults - Jaciel Tena MD - 06/12/2022 11:54 PM ESTAssociated Order(s): Consult to Plastic Surgery Images from the original note were not included. Consult to Plastic Surgery Consult performed by: Jaciel Tena MD Consult ordered by: ASHLEIGH Renner Reason for consult: Concern for flexor tenosynovitis [facility] [place], [place] of Medicine Department of Surgery Division of Plastic Surgery Hand Surgery History & Physical Note Reason for Consult: Concern for flexor tenosynovitis Requesting Service: Emergency Medicine Consult Date and Time: 06/12/2022 11:54 PM Subjective History of Present Illness: Chief Complaint: L RF pain, swelling Ofelia Jain is a 62 y.o. RHD male with PMHx significant for IDD and poorly controlled diabetes who presented to the [facility] on 06/12 with L RF pain, swelling. Pt reports that he has noticed worsening swelling and pain in his L RF for the past 3 days. He reports that he is a bad nail biter, and has had infections of his nails in the past. He reports that earlier this morning, he had been feeling sweaty and noticed that his finger was twice the size it was the day prior. He denies measured fevers. He denies nausea or emesis. He was taken to [facility] for evaluation and had increasing concern for possible flexor tenosynovitis and he was transferred to for evaluation by the hand surgery team. On examination the patient is afebrile with stable vitals. He has a firm distal phalanx with some evidence of pus draining from the distal tip. The patient has no pain with passive extension. The patient has no flexed posturing. The patient does have some fusiform swelling but it is localized to the distal phalanx and volar pulp. He denies numbness or tingling in the digit. He is a nonsmoker with no history of illicit substances. He lives in a shelter with other friends. He takes insulin fordiabetes. He is not able to describe the other medications he takes. He does not have any previous trauma to the hand. He does not have any previous surgeries to the hand. He does not have a personalor family history of bleeding or blood clotting disorders. He seeks definitive care. Review of Systems: A 14 point review of systems was reviewed and is negative except as mentioned inthe HPI. History Obtained From: Patient Past Medical History: Past Medical History: Diagnosis Date Abnormal weight gain Abnormal weight gain Asthma Cellulitis of unspecified finger Cellulitis of unspecified finger Cellulitis of unspecified part of limb Cellulitis of hand Cellulitis, unspecified Cellulitis Chronic kidney disease Diabetes mellitus ([facility]) Diabetic polyneuropathy ([facility]) Encounter for general adult medical examination without abnormal findings Normal routine physical examination GERD (gastroesophageal reflux disease) Hyperlipidemia Hypertension Osteomyelitis ([facility]) Personal history of other endocrine, nutritional and metabolic disease History of type 2 diabetes mellitus Type 2 diabetes mellitus ([facility]) Allergies And Reactions: Allergies Allergen Reactions Fluogen [Influenza Virus Vaccine] Itching Morphine Itching Past Surgical History: No past surgical history on file. Family Medical History: No family history on file. Social History: Social History Socioeconomic History Marital status: Spouse name: Not on file Number of children: Not on file Years of education: Not on file Highest education level: Not on file Occupational History Not on file Tobacco Use Smoking status: Never Smokeless tobacco: Not on file Substance and Sexual Activity Alcohol use: Not on file Drug use: Not on file Sexual activity: Not on file Other Topics Concern Not on file Social History Narrative Not on file Social Determinants of Health Financial Resource Strain: Not on file Food Insecurity: Not on file Transportation Needs: Not on file Physical Activity: Not on file Stress: Not on file Social Connections: Not on file Intimate Partner Violence: Not on file Housing Stability: Not on file Immunizations: There is no immunization history on file for this patient. I have updated and confirmed the past medical, surgical, family and social history. Home Medications: Prior to Admission medications Not on File Anti-Thrombotic Medications: Is this patient taking warfarin, new oral anti-coagulant, or anti-platelet medication? No If Yes, What Medication: N/A Current Hospital Medications: Current Facility-Administered Medications Medication Dose Route Frequency Provider Last Rate Last Admin lidocaine (Xylocaine) 1 % injection - Pyxis Override Pull lidocaine (Xylocaine) 1 % injection 10 mL 10 mL Infiltration Once Jaciel Tena MD lidocaine 1%-EPINEPHrine 1:200,000-(PF)(Xylocaine W/EPI) injection 20 mL Infiltration Once Jaciel Tena MD No current outpatient medications on file. Objective Objective: Visit Vitals BP 135/63 Pulse 65 Temp 36.4 ??C (97.5 ??F) (Oral) Ht 1.676 m (5' 6 ) Wt 102 kg (224 lb) SpO2 99% BMI 36.15 kg/m?? @ Physical Exam: Physical Exam General: NAD HEENT: atraumatic, normocephalic Resp: unlabored respiratory effort Psych: appropriate mood and behavior Neuro: alert and oriented x3 Skin: Poor nail hygiene. Purulent drainage from the nail of the L RF Card/Vascular/Capillary Refill ( >2sec or < 2 sec. D + Doppler signal only) Right: Radial pulse 2+, Ulnar pulse 2+ Thumb <2 sec, Index <2 sec, Middle <2 sec, ring <2 sec, small <2 sec Left: Radial pulse 2+, Ulnar pulse 2+ Thumb <2 sec, Index <2 sec, Middle <2 sec, ring <2 sec, small <2 sec Neuro/Sensory Examination Right hand two point discrimination: Thumb <8 mm, Index <8 mm, Middle <8 mm, ring <8 mm, small <8 mm Median nerve <8mm, Radial nerve <8mm, Ulnar nerve <8mm Left hand two point discrimination: Thumb <8 mm, Index <8 mm, Middle <8 mm, ring <8 mm, small <8 mm Median nerve <8mm, Radial nerve <8mm, Ulnar nerve <8mm MSK/Motor Examination Right: Thumb: 5/5 FPL, 5/5 FPB, 5/5 EPL, 5/5 EPB Index: 5/5 FDS, 5/5 FDP, 5/5 EDC, 5/5 EIP Middle: 5/5 FDS, 5/5 FDP, 5/5 EDC Rin/5 FDS, 5/5 FDP, 5/5 EDC Small: 5/5 FDS, 5/5 FDP, 5/5 EDC, 5/5 EDM Wrist: 5/5 FCR, 5/5 FCU, 5/5 ECRL/B, 5/5 ECU Left: Thumb: 5/5 FPL, 5/5 FPB, 5/5 EPL, 5/5 EPB Index: 5/5 FDS, 5/5 FDP, 5/5 EDC, 5/5 EIP Middle: 5/5 FDS, 5/5 FDP, 5/5 EDC Rin/5 FDS, 3/5 FDP, 3/5 EDC Small: 5/5 FDS, 5/5 FDP, 5/5 EDC, 5/5 EDM Wrist: 5/5 FCR, 5/5 FCU, 5/5 ECRL/B, 5/5 ECU Labs: Labs in last 18 hours CBC WBC ?? Hb ?? Plt ?? Hct ?? ANC ?? INR ??, PTT ??, Anti-Xa ?? BMP Na ?? Cl ?? BUN ?? Glu ?? K ?? Co2 ?? Cr ?? Ca ?? iCa ?? Mg ??, Phos ?? Lactate ?? LFT AST ?? AlkPhos ?? T Prot ?? ALK ?? Bili ?? Alb ?? D.Bili ?? OSH labs significant for 11.7 WBC, elevated ESR and CRP. Blood Glucose 67 Imaging: OSH XR of the L hand were reviewed personally by me and are significant for L distal phalanx soft tissue swelling Radiographic Interpretation: I have reviewed the imaging above and agree with the radiologist interpretation. @OBJECTIVEED@ Assessment/Plan MDM: Labs ordered/ reviewed Radiology personally reviewed OSH records reviewed Assessment & Plan: Ofelia Jain is a 62 y.o. RHD male with PMHx significant for IDD and poorly controlled diabetes who presented to the [facility] on 06[facility]12 with L RF pain, swelling. Pt history, physical exam andimaging most consistent with felon of the L RF. Pt has 0/4 Kanavel signs on examination. Performed bedside incision and drainage with local anesthetic and had immediate return of pus, which was cultur ed. Pt will require antibiotics and TID warm soaks with packing. Recommendations are as follows: - Bedside incision and drainage performed. - Washed out with 1L NS with betadine - Pt placed in finger splint, wound packed with NuGauze - Follow-up wound cultures; tailor antibiotics to cultures - Warm soaks TID - Packing between dressing changes - Would recommend OT consult for removable UGS in AM. - Recommend medicine admission for IV antibiotics, medical optimization - RAFAEL to follow while inpatient. Dispo: Per the Emergency Department CODE STATUS: full code Jcaiel Tena MD Cosigned by Fabián Amezquita MD at 06/13/2022 5:33 AM EST Associated attestation - Fabián Amezquita MD - 06/13/2022 5:33 AM EST Signature Only * ED Provider Notes - Hanane Vega - 06/12/2022 9:43 PM EST HPI Chief Complaint Patient presents with Infection Ofelia Jain is a 62 y.o. male who presents to the Emergency Department with complaints of left hand ring finger infection. He is known IDDM with CAD. He has been having edema, erythema and painof the distal pad on the left hand ring finger. No drainage. He was seen at OSH with WBC 11.4, ESR >140, CRP 8.9, x-ray notes concern for comminuted minimally displaced fracture of the distal aspect of the ring finger consistent with a tuft fracture. There was concern for flexor tenosynovitis and he was given vancomycin and Rocephin and sent here for hand evaluation. Denies f/c/n/v/d, cp, soa,abdominal pain, urinary symptoms or neuro changes. Carmela Coma Scale Score: 15 Patient History Past Medical History: Diagnosis Date Abnormal weight gain Abnormal weight gain Asthma Cellulitis of unspecified finger Cellulitis of unspecified finger Cellulitis of unspecified part of limb Cellulitis of hand Cellulitis, unspecified Cellulitis Chronic kidney disease Diabetes mellitus ([facility]) Diabetic polyneuropathy ([facility]) Encounter for general adult medical examination without abnormal findings Normal routine physical examination GERD (gastroesophageal reflux disease) Hyperlipidemia Hypertension Osteomyelitis ([facility]) Personal history of other endocrine, nutritional and metabolic disease History of type 2 diabetes mellitus Type 2 diabetes mellitus ([facility]) Past Surgical History: Procedure Laterality Date CARDIAC [...] Negative for arthralgias and back pain. Skin: Positive for wound. Negative for color change and rash. Neurological: Negative for seizures and syncope. All other systems reviewed and are negative. Physical Exam ED Triage Vitals [06/12/22 2212] Temp Heart Rate Resp BP 36.4 ??C (97.5 ??F) 65 17 135/63 SpO2 Temp Source Heart Rate Source Patient Position 100 % Oral -- -- BP Location FiO2 (%) -- -- Physical Exam Vitals and nursing note reviewed. Constitutional: General: He is not in acute distress. Appearance: He is well-developed. HENT: Head: Normocephalic and atraumatic. Eyes: Conjunctiva/sclera: Conjunctivae normal. Cardiovascular: Rate and Rhythm: Normal rate and regular rhythm. Heart sounds: No murmur heard. Pulmonary: Effort: Pulmonary effort is normal. No respiratory distress. Breath sounds: Normal breath sounds. Abdominal: Palpations: Abdomen is soft. Tenderness: There is no abdominal tenderness. Musculoskeletal: General: No swelling. Cervical back: Neck supple. Skin: General: Skin is warm and dry. Capillary Refill: Capillary refill takes less than 2 seconds. Comments: Left hand ring finger notes edema, erythema and fluctuance of distal pad over distal phalanx consistent with felon Neurological: Mental Status: He is alert. Psychiatric: Mood and Affect: Mood normal. ED Course & MDM Clinical Impressions as of 06/17/22 2354 Felon of finger Uncontrolled other specified diabetes mellitus with hyperglycemia (CMS/HCC) Closed fracture of tuft of distal phalanx of finger ED Disposition: Admit Medical Decision Making Ofelia Jain is a 62 yrs old male presents today for Patient presents with: Infection of left hand ring finger. Patient VSS. Based on his history and physical exam, my Ddx consistent with osteomyelitis, cellulitis, felon, abscess, flexor tenosynovitis, etc.. Ruling out the most morbid conditions drove my clinical assessment. Old records for this patient were reviewed and found to be pertinent. Records review indicates that with WBC 11.4, ESR >140, CRP 8.9, x-ray notesconcern for comminuted minimally displaced fracture of the distal aspect of the ring finger consistent with a tuft fracture. Concern for flexor tenosynovitis, low exam notes more concerning for felon. In order to fully explore differential these tests and treatments were ordered. No orders of the defined types were placed in this encounter. Medications - No data to display I had an interactive discussion with Plastic Surgery who is on for hand. They will perform I&D and requested Im admit for IV abx. Based on work up today patient did require consult with Plastics and IM Ultimately, this patient was Was admitted (Admission) The encounter diagnosis was Felon of finger.. Patient believed to require admission forthe listed diagnoses. The Internal Medicine service was consulted for admission and was agreeable to admit to Acute Floor (Med/Surg). ED Prescriptions Medication Sig Dispense Start Date End Date Auth. Provider clindamycin (Cleocin) 150 MG capsule (Status: Discontinued) Take 3 capsules (450 mg total) by mouth3 (three) times a day for 21 doses. Stop date: 06/21/22 63 capsule 06/15/2022 06/16/2022 Melissa Michelle MD doxycycline (Vibra-Tabs) 100 MG tablet Take 1 tablet (100 mg total) by mouth 2 (two) times a day for 19 doses. Take with a full glass of water and do not lie down for at least 30 minutes after. 19 tablet 06/16/2022 06/26/2022 Melissa Michelle MD Sign Off Checklist Clinical Impression: Complete ED Disposition: Complete ASHLEIGH Renner 06/12/22 2329 ASHLEIGH Renner 06/12/22 2336 Elisabet Castelan MD 06/17/22 2356 Cosigned by Elisabet Castelan MD at 06/17/2022 11:56 PM EST Associated attestation - Elisabet Castelan MD - 06/17/2022 11:56 PM EST I attest to being involved in more than half the total time in patient care. Pt with complicated medical history - most specifically DM and vascular insufficiency, likely complicated his infection/disease process. Has an abscess/felon of finger on exam - underlying ?Fx of distal phalynx - unclear if this represents underlying osteomyelitis or Fx. OSH records reviewed as perHPI. Discussed case with Hand (Plastics) Surgery who performed I&D of abscess, and ultimately admitted to IM for further abx/medical care. * ED Triage Notes - Mckayla Barajas - 06/12/2022 9:43 PM EST Patient arrives via EMS from [facility] for L handed ring finger infection. He states that he noticed his finger started looking red a few days ago so today he went to OSH. While there, patient diagnosed with flexor tenosynovitis. Recevied vancomycin and rocephin at other hospital. documented in this encounter Plan of Treatment Scheduled Orders Name Type Priority Associated Diagnoses Orde r Schedule Colorectal Ca Monitor, Fecal Occult Blood Microbiology Routine Once (Lab) for 1 Occurrences starting 06/13/2022 until 06/13/2022 documented as of this encounter Procedures Procedure Name Priority Date/Time Associated Diagnosis Comments POCT GLUCOSE METER UNSOLICITED RESULTS Routine 06/18/2022 4:55 PM EST POCT GLUCOSE METER UNSOLICITED RESULTS Routine 06/18/2022 11:58 AM EST POCT GLUCOSE METER UNSOLICITED RESULTS Routine 06/18/2022 7:42 AM EST POCT GLUCOSE METER UNSOLICITED RESULTS Routine 06/17/2022 8:38 PM EST POCT GLUCOSE METER UNSOLICITED RESULTS Routine 06/17/2022 4:27 PM EST POCT GLUCOSE METER UNSOLICITED RESULTS Routine 06/17/2022 11:40 AM EST POCT GLUCOSE METER UNSOLICITED RESULTS Routine 06/17/2022 7:25 AM EST POCT GLUCOSE METER UNSOLICITED RESULTS Routine 06/16/2022 8:12 PM EST POCT GLUCOSE METER UNSOLICITED RESULTS Routine 06/16/2022 4:45 PM EST POCT GLUCOSE METER UNSOLICITED RESULTS Routine 06/16/2022 11:31 AM EST POCT GLUCOSE METER UNSOLICITED RESULTS Routine 06/16/2022 7:50 AM EST POCT GLUCOSE METER UNSOLICITED RESULTS Routine 06/15/2022 7:46 PM EST POCT GLUCOSE METER UNSOLICITED RESULTS Routine 06/15/2022 4:48 PM EST POCT GLUCOSE METER UNSOLICITED RESULTS Routine 06/15/2022 11:12 AM EST POCT GLUCOSE METER UNSOLICITED RESULTS Routine 06/15/2022 7:24 AM EST VANCOMYCIN, TROUGH, PLASMA Timed 06/15/2022 5:56 AM EST POCT GLUCOSE METER UNSOLICITED RESULTS Routine 06/14/2022 8:32 PM EST POCT GLUCOSE METER UNSOLICITED RESULTS Routine 06/14/2022 5:03 PM EST POCT GLUCOSE METER UNSOLICITED RESULTS Routine 06/14/2022 11:39 AM EST POCT GLUCOSE METER UNSOLICITED RESULTS Routine 06/14/2022 8:02 AM EST IRON & TOTAL IRON BINDING CAPACITY, PLASMA (INCLUDES TRANSFERRIN) Routine 06/14/2022 2:44 AM EST CBC W/O DIFFERENTIAL Routine 06/14/2022 2:44 AM EST FERRITIN, SERUM Routine 06/14/2022 2:44 AM EST POCT GLUCOSE METER UNSOLICITED RESULTS Routine 06/13/2022 8:16 PM EST POCT GLUCOSE METER UNSOLICITED RESULTS Routine 06/13/2022 4:55 PM EST POCT GLUCOSE METER UNSOLICITED RESULTS Routine 06/13/2022 11:30 AM EST MULTI DRUG RESISTANCE TEST Routine 06/13/2022 10:22 AM EST POCT GLUCOSE METER UNSOLICITED RESULTS Routine 06/13/2022 6:53 AM EST APTT Routine 06/13/2022 5:18 AM EST PROTHROMBIN TIME(PT) / INR Routine 06/13/2022 5:18 AM EST CBC WITH AUTO DIFFERENTIAL Routine 06/13/2022 5:18 AM EST PHOSPHORUS, PLASMA Routine 06/13/2022 5: 18 AM EST MAGNESIUM, PLASMA Routine 06/13/2022 5:1 8 AM EST HEMOGLOBIN A1C Routine 06/13/2022 5:18 AM EST COMPREHENSIVE METABOLIC PANEL, PLASMA Routine 06/13/2022 5:18 AM EST POCT GLUCOSE METER UNSOLICITED RESULTS Routine 06/13/2022 3:22 AM EST XR CHEST 2 VIEWS Routine 06/13/2022 1:06 AM EST ECG ADULT Routine 06/13/2022 1:04 AM EST SARS COV2 COVID 19/INFLUENZA A, B STAT 06/13/2022 12:55 AM EST WOUND CULTURE AND GRAM STAIN Routine 06/13/2022 12:55 AM EST POCT GLUCOSE METER UNSOLICITED RESULTS Routine 06/13/2022 12:54 AM EST POCT GLUCOSE METER UNSOLICITED RESULTS Routine 06/12/2022 10:27 PM EST documented in this encounter Results * (ABNORMAL) POCT glucose meter (06/18/2022 4:55 PM EST) POCT Glucose 121(H) 74 - 99 mg/dL 06/18/2022 5:00 PM EST [facility] Comment:Accuracy of a glucos e result obtained from a capillary whole blood specimen relies upon adequate, non-compromised capillary blood flow. If the capillary glucose result is not consistent with the patient's clinical signs and symptoms, glucose testing should be repeated with either an arterial or venous sample on the glucometer or sent to the main labortory for testing. Comment 06/18/2022 5:00 PM EST [facility] Documentation Liaison ID Sofia Larios 06/18/19 5:00 PM EST [facility] Device ID [id number] 06/18/2022 5:00 PM EST [facility] Specimen Type POC Capillary 06/18/2022 5:00 PM EST [facility] Blood Capillary blood specimen / Unknown 06/18/2022 4:55 PM EST 06/18/2022 5:00 PM EST Melissa Michelle MD LAB POINT OF CARE TEST DOCKED DEVICE UNSOLICITED RESULTS Final Result Performing Organization Address City/[facility] Co de Phone Number [facility] [address] [place] [address] * (ABNORMAL) POCT glucose meter (06/18/2022 11:58 AM EST) Pathologist [facility] POCT Glucose 131(H) 74 - 99 mg/dL 06/18/2022 12:00 PM EST [facility] Comment:Accuracy of a glucos e result obtained from a capillary whole blood specimen relies upon adequate, non-compromised capillary blood flow. If the capillary glucose result is not consistent with the patient's clinical signs and symptoms, glucose testing should be repeated with either an arterial or venous sample on the glucometer or sent to the main labortory for testing. Comment 06/18/2022 12:00 PM EST [facility] Documentation Liaison ID Carmen Kuhn 023 12:00 PM EST [facility] Device ID [id number] 06/18/2022 12:00 PM EST [facility] Specimen Type POC Capillary 06/18/2022 12:00 PM EST [facility] Blood Capillary blood specimen / Unknown 06/18/2022 11:58 AM EST 06/18/2022 12:00 PM EST Melissa Michelle MD LAB POINT OF CARE TEST DOCKED DEVICE UNSOLICITED RESULTS Final Result Performing Organization Address City/[facility] Co de Phone Number [facility] [address] [place] [address] * (ABNORMAL) POCT glucose meter (06/18/2022 7:42 AM EST) POCT Glucose 108(H) 74 - 99 mg/dL 06/18/2022 7:45 AM EST [facility] Comment:Accuracy of a glucos e result obtained from a capillary whole blood specimen relies upon adequate, non-compromised capillary blood flow. If the capillary glucose result is not consistent with the patient's clinical signs and symptoms, glucose testing should be repeated with either an arterial or venous sample on the glucometer or sent to the main labortory for testing. Comment 06/18/2022 7:45 AM EST [facility] Documentation Liaison ID Carmen Kuhn 023 7:45 AM EST [facility] Device ID [id number] 06/18/2022 7:45 AM EST [facility] Specimen Type POC Capillary 06/18/2022 7:[address] [facility] Blood Capillary blood specimen / Unknown 06/18/2022 7:42 AM EST 06/18/2022 7:45 AM EST Melissa Michelle MD LAB POINT OF CARE TEST DOCKED DEVICE UNSOLICITED RESULTS Final Result [facility] [address] [place] [address] * (ABNORMAL) POCT glucose meter (06/17/2022 8:38 PM EST) [facility] POCT Glucose 127(H) 74 - 99 mg/dL 06/17/2022 8:40 PM EST [facility] Comment:Accuracy of a glucos e result obtained from a capillary whole blood specimen relies upon adequate, non-compromised capillary blood flow. If the capillary glucose result is not consistent with the patient's clinical signs and symptoms, glucose testing should be repeated with either an arterial or venous sample on the glucometer or sent to the main labortory for testing. Comment 06/17/2022 8:40 PM EST [facility] Documentation Liaison ID Melina Bearden 06/17/2022 8:40 PM EST [facility] Device ID [id number] 06/17/2022 8:40 PM EST [facility] Specimen Type POC Capillary 06/17/2022 8:[address] [facility] Blood Capillary blood specimen / Unknown 06/17/2022 8:38 PM EST 06/17/2022 8:40 PM EST Melissa Michelle MD LAB POINT OF CARE TEST DOCKED DEVICE UNSOLICITED RESULTS Final Result Performing Organization Address [facility] de Phone Number [facility] [address] [place] [address] * (ABNORMAL) POCT glucose meter (06/17/2022 4:27 PM EST) POCT Glucose 116(H) 74 - 99 mg/dL 06/17/2022 4:30 PM EST [facility] Comment:Accuracy of [...] to the main labortory for testing. Comment 06/17/2022 4:[address] [facility] Documentation Liaison ID Yves Art 06/17/2022 4:[address] [facility] Device ID [id number] 06/17/2022 4:[address] [facility] Specimen Type POC Capillary 06/17/2022 4:[address] [facility] Blood Capillary blood specimen / Unknown 06/17/2022 4:27 PM EST 06/17/2022 4:30 PM EST Melissa Michelle MD LAB POINT OF CARE TEST DOCKED DEVICE UNSOLICITED RESULTS Final Result Performing Organization Address City/[facility] Co de Phone Number [facility] [address] [place] [address] * (ABNORMAL) POCT glucose meter (06/17/2022 11:40 AM EST) POCT Glucose 118(H) 74 - 99 mg/dL 06/17/2022 11:45 AM EST [facility] Comment:Accuracy [...] to the main labortory for testing. Comment 06/17/2022 11:45 AM EST [facility] Documentation Liaison ID Yves Art 06/17/2022 11:45 AM EST [facility] Device ID [id number] 06/17/2022 11:45 AM EST [facility] Specimen Type POC Capillary 06/17/2022 11:45 AM EST [facility] Blood Capillary blood specimen / Unknown 06/17/2022 11:40 AM EST 06/17/2022 11:45 AM EST Melissa Michelle MD LAB POINT OF CARE TEST DOCKED DEVICE UNSOLICITED RESULTS Final Result Performing Organization Address [facility] Co de Phone Number [facility] [address] [place] [address] * (ABNORMAL) POCT glucose meter (06/17/2022 7:25 AM EST) POCT Glucose 113(H) 74 - 99 mg/dL 06/17/2022 7:[address] [facility] Comment:Accuracy of a glucos e result obtained from a capillary whole blood specimen relies upon adequate, non-compromised capillary blood flow. If the capillary glucose result is not consistent with the patient's clinical signs and symptoms, glucose testing should be repeated with either an arterial or venous sample on the glucometer or sent to the main labortory for testing. Comment 06/17/2022 7:30 AM EST [facility] Documentation Liaison ID Yves Art 06/17/2022 7:30 AM EST [facility] Device ID [id number] 06/17/2022 7:30 AM EST [facility] Specimen Type POC Capillary 06/17/2022 7:30 AM EST [facility] Blood Capillary blood specimen / Unknown 06/17/2022 7:25 AM EST 06/17/2022 7:30 AM EST us Melissa Michelle MD LAB POINT OF CARE TEST DOCKED DEVICE UNSOLICITED RESULTS Final Result Performing Organization Address City/[facility]/ZIP Co de Phone Number [facility] [address] [place] [address] * (ABNORMAL) POCT glucose meter (06/16/2022 8:12 PM EST) POCT Glucose 106(H) 74 - 99 mg/dL 06/16/2022 8:25 PM EST [facility] Comment:Accuracy of [...] to the main labortory for testing. Comment 06/16/2022 8:25 PM EST [facility] Documentation Liaison ID Ambreen Bruno 023 8:25 PM EST [facility] Device ID [id number] 06/16/2022 8:25 PM EST [facility] Specimen Type POC Capillary 06/16/2022 8:25 PM EST [facility] Blood Capillary blood specimen / Unknown 06/16/2022 8:12 PM EST 06/16/2022 8:25 PM EST Melissa Michelle MD LAB POINT OF CARE TEST DOCKED DEVICE UNSOLICITED RESULTS Final Result Performing Organization Address City/State/[facility] Co de Phone Number [facility] [address] [place] [address] * (ABNORMAL) POCT glucose meter (06/16/2022 4:45 PM EST) Pathologist [facility] POCT Glucose 113(H) 74 - 99 mg/dL 06/16/2022 4:50 PM EST [facility] Comment:Accuracy of [...] to the main labortory for testing. Comment 06/16/2022 4:50 PM EST [facility] Documentation Liaison ID Michelle Parson 06/16/2022 4:50 PM EST [facility] Device ID [id number] 06/16/2022 4:50 PM EST [facility] Specimen Type POC Capillary 06/16/2022 4:50 PM EST [facility] Blood Capillary blood specimen / Unknown 06/16/2022 4:45 PM EST 06/16/2022 4:50 PM EST Melissa Michelel MD LAB POINT OF CARE TEST DOCKED DEVICE UNSOLICITED RESULTS Final Result Performing Organization Address City/[facility] Co de Phone Number [facility] [address] [place] [address] * (ABNORMAL) POCT glucose meter (06/16/2022 11:31 AM EST) POCT Glucose 137(H) 74 - 99 mg/dL 06/16/2022 11:35 AM EST [facility] Comment:Accuracy [...] to the main labortory for testing. Comment 06/16/2022 11:[address] [facility] Documentation Liaison ID Michelle Parson 06/16/2022 11:35 AM EST [facility] Device ID [id number] 06/16/2022 11:[address] [facility] Specimen Type POC Capillary 06/16/2022 11:[address] [facility] Blood Capillary blood specimen / Unknown 06/16/2022 11:31 AM EST 06/16/2022 11:35 AM EST Melissa Michelle MD LAB POINT OF CARE TEST DOCKED DEVICE UNSOLICITED RESULTS Final Result Performing Organization Address City/[facility] Co de Phone Number [facility] [address] [place] [address] * (ABNORMAL) POCT glucose meter (06/16/2022 7:50 AM EST) POCT Glucose 120(H) 74 - 99 mg/dL 06/16/2022 7:55 AM EST [facility] Comment:Accuracy of [...] to the main labortory for testing. Comment 06/16/2022 7:55 AM EST [facility] Documentation Liaison ID Michelle Parson 06/16/2022 7:55 AM EST [facility] Device ID [id number] 06/16/2022 7:55 AM EST [facility] Specimen Type POC Capillary 06/16/2022 7:55 AM [facility] Blood Capillary blood specimen / Unknown 06/16/2022 7:50 AM EST 06/16/2022 7:55 AM EST us Melissa iMchelle MD LAB POINT OF CARE TEST DOCKED DEVICE UNSOLICITED RESULTS Final Result Performing Organization Address City/State/[facility] Phone Number [facility] [address] [place] [address] * (ABNORMAL) POCT glucose meter (06/15/2022 7:46 PM EST) [facility] POCT Glucose 128(H) 74 - 99 mg/dL 06/15/2022 7:50 PM EST [facility] Comment:Accuracy of [...] to the main labortory for testing. Comment 06/15/2022 7:50 PM EST [facility] Documentation Liaison ID Bree Vasquez 06/15/2022 7:50 PM EST [facility] Device ID [id number] 06/15/2022 7:50 PM EST [facility] Specimen Type POC Capillary 06/15/2022 7:50 PM EST [facility] Blood Capillary blood specimen / Unknown 06/15/2022 7:46 PM EST 06/15/2022 7:50 PM EST us Melissa Michelle MD LAB POINT OF CARE TEST DOCKED DEVICE UNSOLICITED RESULTS Final Result Performing Organization Address City/State/[facility] Co de Phone Number [facility] [address] [place] [address] * (ABNORMAL) POCT glucose meter (06/15/2022 4:48 PM EST) [facility] POCT Glucose 132(H) 74 - 99 mg/dL 06/15/2022 4:50 PM EST [facility] Comment:Accuracy of [...] to the main labortory for testing. Comment 06/15/2022 4:50 PM EST [facility] Documentation Liaison ID Michelle Parson 06/15/2022 4:50 PM EST [facility] Device ID [id number] 06/15/2022 4:50 PM EST [facility] Specimen Type POC Capillary 06/15/2022 4:50 PM EST [facility] Blood Capillary blood specimen / Unknown 06/15/2022 4:48 PM EST 06/15/2022 4:50 PM EST Melissa Michelle MD LAB POINT OF CARE TEST DOCKED DEVICE UNSOLICITED RESULTS Final Result Performing Organization Address [facility] de Phone Number [facility] [address] [place] [address] * (ABNORMAL) POCT glucose meter (06/15/2022 11:12 AM EST) [facility] POCT Glucose 125(H) 74 - 99 mg/dL 06/15/2022 11:15 AM EST [facility] Comment:Accuracy of [...] to the main labortory for testing. Comment 06/15/2022 11:15 AM EST [facility] Documentation Liaison ID Michelle Parson 06/15/2022 11:15 AM EST [facility] Device ID [id number] 06/15/2022 11:15 AM EST [facility] Specimen Type POC Capillary 06/15/2022 11:15 AM EST [facility] Blood Capillary blood specimen / Unknown 06/15/2022 11:12 AM EST 06/15/2022 11:15 AM EST Melissa Michelle MD LAB POINT OF CARE TEST DOCKED DEVICE UNSOLICITED RESULTS Final Result Performing Organization Address City/[facility] Co de Phone Number [facility] [address] [place] [address] * (ABNORMAL) POCT glucose meter (06/15/2022 7:24 AM EST) POCT Glucose 101(H) 74 - 99 mg/dL 06/15/2022 7:30 AM EST [facility] Comment:Accuracy of a glucos e result obtained from a capillary whole blood specimen relies upon adequate, non-compromised capillary blood flow. If the capillary glucose result is not consistent with the patient's clinical signs and symptoms, glucose testing should be repeated with either an arterial or venous sample on the glucometer or sent to the main labortory for testing. Comment 06/15/2022 7:30 AM EST [facility] Documentation Liaison ID Michelle Parson 06/15/2022 7:[address] [facility] Device ID [id number] 06/15/2022 7:30 AM EST [facility] Specimen Type POC Capillary 06/15/2022 7:30 AM EST [facility] Blood Capillary blood specimen / Unknown 06/15/2022 7:24 AM EST 06/15/2022 7:30 AM EST Melissa Michelle MD LAB POINT OF CARE TEST DOCKED DEVICE UNSOLICITED RESULTS Final Result Performing Organization Address [facility] de Phone Number [facility] [address] [place] [address] * (ABNORMAL) Vancomycin, Trough, Plasma Please draw ~30 minutes prior to dose due at 0630 on 06/15. Please do NOT hold dose awaiting level to return. Thanks! (06/15/2022 5:56 AM EST) Pathologist [facility] Vancomycin, Trough, Plasma 21.3(H) 10.0 - 20.0 ug/mL 06/15/2022 6:[address] [facility] Blood Venous blood specimen / Unknown Venipuncture / Unknown 06/15/2022 5:56 AM EST 06/15/2022 5:59 AM EST Narrative [facility] - 06/15/2022 6:21 AM EST Therapeutic Trough level: ? 10-20ug/mL Supra-therapeutic Trough level: ??>20 ug/mL Melissa Michelle MD LAB BLOOD ORDERABLES Jailene l Result Performing Organization Address [facility] Co de Phone Number [facility] [address] [place] [address] * (ABNORMAL) POCT glucose meter (06/14/2022 8:32 PM EST) [facility] POCT Glucose 117(H) 74 - 99 mg/dL 06/14/2022 8:[address] [facility] Comment:Accuracy of a glucos e result obtained from a capillary whole blood specimen relies upon adequate, non-compromised capillary blood flow. If the capillary glucose result is not consistent with the patient's clinical signs and symptoms, glucose testing should be repeated with either an arterial or venous sample on the glucometer or sent to the main labortory for testing. Comment 06/14/2022 8:[address] [facility] Documentation Liaison ID PadgettBree Wolfe 06/14/2022 8:[address] [facility] Device ID [id number] 06/14/2022 8:[address] [facility] Specimen Type POC Capillary 06/14/2022 8:[address] [facility] Blood Capillary blood specimen / Unknown 06/14/2022 8:32 PM EST 06/14/2022 8:35 PM EST Melissa Michelle MD LAB POINT OF CARE TEST DOCKED DEVICE UNSOLICITED RESULTS Final Result Performing Organization Address City/[facility]/ZIP Co de Phone Number [facility] [address] [place] [address] * (ABNORMAL) POCT glucose meter (06/14/2022 5:03 PM EST) [facility] POCT Glucose 116(H) 74 - 99 mg/dL 06/14/2022 5:05 PM EST [facility] Comment:Accuracy of [...] to the main labortory for testing. Comment 06/14/2022 5:05 PM EST [facility] Documentation Liaison ID Michelle Parson 06/14/2022 5:05 PM EST [facility] Device ID [id number] 06/14/2022 5:05 PM EST [facility] Specimen Type POC Capillary 06/14/2022 5:05 PM EST [facility] Blood Capillary blood specimen / Unknown 06/14/2022 5:03 PM EST 06/14/2022 5:05 PM EST Melissa Michelle MD LAB POINT OF CARE TEST DOCKED DEVICE UNSOLICITED RESULTS Final Result Performing Organization Address City/State/[facility] Co de Phone Number [facility] [address] [place] [address] * (ABNORMAL) POCT glucose meter (06/14/2022 11:39 AM EST) [facility] POCT Glucose 143(H) 74 - 99 mg/dL 06/14/2022 11:45 AM EST [facility] Comment:Accuracy [...] to the main labortory for testing. Comment 06/14/2022 11:45 AM EST [facility] Documentation Liaison ID Michelle Parson 06/14/2022 11:45 AM EST [facility] Device ID [id number] 06/14/2022 11:45 AM EST [facility] Specimen Type POC Capillary 06/14/2022 11:45 AM EST [facility] Blood Capillary blood specimen / Unknown 06/14/2022 11:39 AM EST 06/14/2022 11:45 AM EST Melissa Michelle MD LAB POINT OF CARE TEST DOCKED DEVICE UNSOLICITED RESULTS Final Result Performing Organization Address [facility] de Phone Number [facility] [address] [place] [address] * (ABNORMAL) POCT glucose meter (06/14/2022 8:02 AM EST) Pathologist [facility] POCT Glucose 128(H) 74 - 99 mg/dL 06/14/2022 8:05 AM EST [facility] Comment:Accuracy of a glucos e result obtained from a capillary whole blood specimen relies upon adequate, non-compromised capillary blood flow. If the capillary glucose result is not consistent with the patient's clinical signs and symptoms, glucose testing should be repeated with either an arterial or venous sample on the glucometer or sent to the main labortory for testing. Comment 06/14/2022 8:05 AM EST [facility] Documentation Liaison ID Michelle Parson 06/14/2022 8:05 AM EST [facility] Device ID [id number] 06/14/2022 8:[address] [facility] Specimen Type POC Capillary 06/14/2022 8:[address] [facility] Blood Capillary blood specimen / Unknown 06/14/2022 8:02 AM EST 06/14/2022 8:05 AM EST us Melissa Michelle MD LAB POINT OF CARE TEST DOCKED DEVICE UNSOLICITED RESULTS Final Result Performing Organization Address City/[facility] Co de Phone Number [facility] [address] [place] [address] * (ABNORMAL) CBC W/O Differential (06/14/2022 2:44 AM EST) WBC Count 6.54 3.70 - 10.30 10*3/uL LAB HEMATOLOGY METHOD 06/14/2022 3:[address] [facility] RBC Count 2.81(L) 4.60 - 6.10 10*6/uL LAB HEMATOLOGY METHOD 06/14/2022 3:[address] [facility] HGB 9.4(L) 13.7 - 17.5 g/dL LAB HEMATOLOGY METHOD 06/14/2022 3:[address] [facility] HCT 27.0(L) 40.0 - 51.0 % LAB HEMATOLOGY METHOD 06/14/2022 3:[address] [facility] Platelet Count 166 155 - 369 10*3/uL LAB HEMATOLOGY METHOD 06/14/2022 3:[address] [facility] MCV 96 79 - 98 fL LAB HEMATOLOGY METHOD 06/14/2022 3:[address] [facility] MCH 33.5(H) 26.0 - 32.0 pg LAB HEMATOLOGY METHOD 06/14/2022 3:[address] [facility] MCHC 34.8 30.7 - 35.5 g/dL LAB HEMATOLOGY METHOD 06/14/2022 3:[address] [facility] RDW 13.6 11.5 - 14.5 % LAB HEMATOLOGY METHOD 06/14/2022 3:[address] [facility] MPV 10.0 8.8 - 12.5 fL LAB HEMATOLOGY METHOD 06/14/2022 3:[address] [facility] nRBC 0.0 <=0.0 per 100 WBCs LAB HEMATOLOGY METHOD 06/14/2022 3:[address] [facility] Blood Venous blood specimen / Unknown Venipuncture / Unknown 06/14/2022 2:44 AM EST 06/14/2022 3:07 AM EST Yayo Solis APRN LAB BLOOD ORDERABLES Final Result Performing Organization Address City/State/[facility] Co de Phone Number [facility] [address] [place] [address] * Ferritin (06/14/2022 2:44 AM EST) [facility] Ferritin, Serum 188 20 - 400 ng/mL 06/14/2022 9:[address] [facility] Blood Venous blood specimen / Unknown Venipuncture / Unknown 06/14/2022 2:44 AM EST 06/14/2022 3:05 AM EST Man-Lizy C Solis QUILT STUFFER LAB BLOOD ORDERABLES Final Result Performing Organization Address [facility] Co de Phone Number [facility] [address] [place] [address] * (ABNORMAL) Iron & Total Iron Binding Capacity, Plasma (Includes Transferrin) (06/14/2022 2:44 AM EST) [facility] Iron, Plasma 73 50 - 170 ug/dL 06/14/2022 8:49 AM EST [facility] Transferrin, Plasma 153(L) 200 - 360 mg/dL 06/14/2022 8:[address] [facility] Total Iron Binding Capacity, Plasma 191(L) 240 - 450 ug/mL 06/14/2022 8:[address] [facility] Transferrin Saturation 38 14 - 50 % 06/14/2022 8:[address] [facility] Blood Venous blood specimen / Unknown Venipuncture / Unknown 06/14/2022 2:44 AM EST 06/14/2022 3:05 AM EST Result [facility] BLOOD ORDERABLES Final Result Performing Organization Address [facility] de Phone Number [facility] [address] [place] [address] * (ABNORMAL) POCT glucose meter (06/13/2022 8:16 PM EST) [facility] POCT Glucose 122(H) 74 - 99 mg/dL 06/13/2022 8:20 PM EST [facility] Comment:Accuracy of a glucos e result obtained from a capillary whole blood specimen relies upon adequate, non-compromised capillary blood flow. If the capillary glucose result is not consistent with the patient's clinical signs and symptoms, glucose testing should be repeated with either an arterial or venous sample on the glucometer or sent to the main labortory for testing. Comment 06/13/2022 8:20 PM EST [facility] Documentation Liaison ID Bree Vasquez 06/13/2022 8:20 PM EST [facility] Device ID [id number] 06/13/2022 8:20 PM EST [facility] Specimen Type POC Capillary 06/13/2022 8:20 PM EST [facility] Blood Capillary blood specimen / Unknown 06/13/2022 8:16 PM EST 06/13/2022 8:20 PM EST Melissa Michelle MD LAB POINT OF CARE TEST DOCKED DEVICE UNSOLICITED RESULTS Final Result Performing Organization Address [facility] Co de Phone Number [facility] [address] [place] [address] * (ABNORMAL) POCT glucose meter (06/13/2022 4:55 PM EST) POCT Glucose 167(H) 74 - 99 mg/dL 06/13/2022 5:00 PM EST [facility] Comment:Accuracy of [...] to the main labortory for testing. Comment 06/13/2022 5:[address] [facility] Documentation Liaison ID Heather Goldstein 023 5:[address] [facility] Device ID [id number] 06/13/2022 5:[address] [facility] Specimen Type POC Capillary 06/13/2022 5:[address] [facility] Blood Capillary blood specimen / Unknown 06/13/2022 4:55 PM EST 06/13/2022 5:00 PM EST Melissa Michelle MD LAB POINT OF CARE TEST DOCKED DEVICE UNSOLICITED RESULTS Final Result Performing Organization Address City/[facility] Co de Phone Number [facility] [address] [place] [address] * (ABNORMAL) POCT glucose meter (06/13/2022 11:30 AM EST) POCT Glucose 168(H) 74 - 99 mg/dL 06/13/2022 11:35 AM EST [facility] Comment:Accuracy [...] to the main labortory for testing. Comment 06/13/2022 11:35 AM EST [facility] Documentation Liaison ID Saud Olmos 06/13/19 11:35 AM EST [facility] Device ID [id number] 06/13/2022 11:[address] [facility] Specimen Type POC Capillary 06/13/2022 11:[address] [facility] Blood Capillary blood specimen / Unknown 06/13/2022 11:30 AM EST 06/13/2022 11:35 AM EST Melissa Michelle MD LAB POINT OF CARE TEST DOCKED DEVICE UNSOLICITED RESULTS Final Result Performing Organization Address City/[facility]/ZIP Co de Phone Number [facility] [address] [place] [address] * Multi Drug Resistance Test (06/13/2022 10:22 AM EST) Pathologist [facility] Culture No Multi Drug Resistant Organisms Isolated 06/15/2022 8:[address] [facility] Swab (Nares and Talita Rectal) Non-blood Collection / Unknown 06/13/2022 10:22 AM EST 06/13/2022 1:45 PM EST Yayo Solis APRN LAB MICROBIOLOGY - GENERAL ORDERABLES Final Result Performing Organization Address City/[facility]/ZIP Co de Phone Number [facility] [address] [place] [address] * POCT glucose meter (06/13/2022 6:53 AM EST) Pathologist [facility] POCT Glucose 90 74 - 99 mg/dL 06/13/2022 6:55 AM EST [facility] Comment:Accuracy of a glucos e result obtained from a capillary whole blood specimen relies upon adequate, non-compromised capillary blood flow. If the capillary glucose result is not consistent with the patient's clinical signs and symptoms, glucose testing should be repeated with either an arterial or venous sample on the glucometer or sent to the main labortory for testing. Comment 06/13/2022 6:55 AM EST [facility] Documentation Liaison ID Ta Montano 06/13/2022 6:55 AM EST [facility] Device ID [id number] 06/13/2022 6:55 AM EST [facility] Specimen Type POC Capillary 06/13/2022 6:[address] [facility] Blood Capillary blood specimen / Unknown 06/13/2022 6:53 AM EST 06/13/2022 6:55 AM EST Preston Doherty MD LAB POINT OF CARE TE ST DOCKED DEVICE UNSOLICITED RESULTS Final Result Performing Organization Address City/[facility]/ZIP Co de Phone Number [facility] [address] [place] [address] * (ABNORMAL) Hemoglobin A1c (06/13/2022 5:18 AM EST) Hemoglobin A1c 6.2(H) <5.7 % 06/13/2022 10:13 AM EST [facility] Blood Venous blood specimen / Unknown Venipuncture / Unknown 06/13/2022 5:18 AM EST 06/13/2022 5:21 AM EST Narrative [facility] - 06/13/2022 10:13 AM EST [facility] Interpretive Data: Diagnosis of Diabetes: Diabetic > or = 6.5% Pre-diabetic 5.7 to 6.4% Non-diabetic < or = 5.6% Glycemic Targets for Type I and Type II Diabetics: Non- Adults <7.0% Adults <6.0% Children and Adolescents <7.5% Source: ??[employer]. Standards of medical care in diabetes,2017. Diabetes Care.2017:40 (suppl 1):S1-S135. HbA1c assay performed by an ion-exchange chromatography method that is certified traceable to the DCCT. Yayo Solis APRN LAB BLOOD ORDERABLES Final Result [facility] [address] [place] [address] * APTT (06/13/2022 5:18 AM EST) aPTT 27 25 - 35 sec 06/13/2022 5:37 AM EST [facility] Blood Venous blood specimen / Unknown Venipuncture / Unknown 06/13/2022 5:18 AM EST 06/13/2022 5:21 AM EST Yayo Solis QUILT [employer]UFFER LAB BLOOD ORDERABLES Final Result Performing Organization Address City/[facility] Co de Phone Number [facility] [address] [place] [address] * PT/INR (06/13/2022 5:18 AM EST) Prothrombin Time 14.2 12.0 - 14.3 sec 06/13/2022 5:37 AM EST [facility] INR 1.1 0.9 - 1.1 06/13/2022 5:37 AM EST [facility] Blood Venous blood specimen / Unknown Venipuncture / Unknown 06/13/2022 5:18 AM EST 06/13/2022 5:21 AM EST Narrative [facility] - 06/13/2022 5:37 AM EST OPTIMAL INR RANGES FOR PATIENT ON ORAL ANTICOAGULANT THERAPY Prevention of venous thromboembolism ?INR 2.0 to 3.0 In patients with heart disease: Atrial fibrillation ?INR 2.0 to 3.0 Valvular heart disease ? INR 2.0 to 3.0 Tissue heart valves ?INR 2.0 to 3.0 Mechanical prosthetic valves ? INR 2.5 to 3.5 Prevention of recurrent NC ? INR 2.5 to 3.5 Yayo Mo Mathieu QUILT STUFFER LAB BLOOD ORDERABLES Final Result Performing Organization Address City/[facility]/ZIP Co de Phone Number [facility] [address] [place] [address] * Phosphorus (06/13/2022 5:18 AM EST) Phosphorus, Plasma 4.2 2.5 - 4.5 mg/dL 06/13/2022 5:44 AM EST [facility] Blood Venous blood specimen / Unknown Venipuncture / Unknown 06/13/2022 5:18 AM EST 06/13/2022 5:21 AM EST Yayo Solis QUILT STUFFER LAB BLOOD ORDERABLES Final Result Performing Organization Address City/[facility] Co de Phone Number [facility] [address] [place] [address] * (ABNORMAL) Magnesium (06/13/2022 5:18 AM EST) Magnesium, Plasma 1.5(L) 1.9 - 2.4 mg/dL 06/13/2022 5:44 AM EST [facility] Blood Venous blood specimen / Unknown Venipuncture / Unknown 06/13/2022 5:18 AM EST 06/13/2022 5:21 AM EST Yayo Solis APRN LAB BLOOD ORDERABLES Final Result Performing Organization Address [facility] Phone Number [facility] [address] [place] [address] * (ABNORMAL) Comprehensive metabolic panel (06/13/2022 5:18 AM EST) Glucose, Plasma 108(H) 74 - 99 mg/dL 06/13/2022 5:44 AM EST [facility] BUN, Plasma 17 8 - 23 mg/dL 06/13/2022 5:44 AM EST [facility] Creatinine, Plasma 1.05 0.80 - 1.30 mg/dL 06/13/2022 5:44 AM EST [facility] BUN/Creatinine Ratio 16 06/13/2022 5:44 AM EST [facility] Sodium, Plasma 132(L) 136 - 145 mmol/L 06/13/2022 5:44 AM EST [facility] Potassium, Plasma 4.5 3.7 - 4.8 mmol/L 06/13/2022 5:44 AM EST [facility] Comment: Hemolyzed, result may be falsely increased. Reference range for Serum potassium is 0.2 to 0.5 mmol/L higher than Plasma range. Chloride, Plasma 98 97 - 107 mmol/L 06/13/2022 5:44 AM EST [facility] CO2, Plasma 23 22 - 29 mmol/L 06/13/2022 5:44 AM EST [facility] Anion Gap 11 6 - 16 mmol/L 06/13/2022 5:[address] [facility] Total Calcium, Plasma 9.0 8.9 - 10.2 mg/dL 06/13/2022 5:[address] [facility] Total Protein 7.2 6.3 - 7.9 g/dL 06/13/2022 5:[address] [facility] Albumin, Plasma 3.5 3.5 - 5.2 g/dL 06/13/2022 5:[address] [facility] AST, Plasma 39 19 - 48 U/L 06/13/2022 5:[address] [facility] Comment:Hemolyzed, result ma y be falsely increased. ALT, Plasma 13 11 - 41 U/L 06/13/2022 5:[address] [facility] Alkaline Phosphatase, Plasma 85 40 - 115 U/L 06/13/2022 5:[address] [facility] Total Bilirubin, Plasma 0.8 0.2 - 1.1 mg/dL 06/13/2022 5:[address] [facility] eGFRcr 79.3 mL/min/1.7 3m*2 06/13/2022 5:[address] [facility] Comment: Reported eGFRcr in mL/min/1.73m2 is based the CKD-EPI 2021 equation that does not use a race coefficient. Effective 12/20/21 our laboratory changed the eGFR calculation to the CKD-EPI 2021 equation from the previously reported eGFR, based on the MDRD equation. ??For comparisons between the two equations, please see laboratory website: ??[email or web address] [email or web address] Blood Venous blood specimen / Unknown Venipuncture / Unknown 06/13/2022 5:18 AM EST 06/13/2022 5:21 AM EST us Yayo Solis QUILT STUFFER LAB BLOOD ORDERABLES Final Result [facility] [address] [place] [address] * (ABNORMAL) CBC and Differential (06/13/2022 5:18 AM EST) WBC Count 8.76 3.70 - 10.30 10*3/uL LAB HEMATOLOGY METHOD 06/13/2022 5:[address] [facility] RBC Count 3.17(L) 4.60 - 6.10 10*6/uL LAB HEMATOLOGY METHOD 06/13/2022 5:[address] [facility] HGB 10.6(L) 13.7 - 17.5 g/dL LAB HEMATOLOGY METHOD 06/13/2022 5:[address] [facility] HCT 30.6(L) 40.0 - 51.0 % LAB HEMATOLOGY METHOD 06/13/2022 5:[address] [facility] Platelet Count 189 155 - 369 10*3/uL LAB HEMATOLOGY METHOD 06/13/2022 5:[address] [facility] MCV 97 79 - 98 fL LAB HEMATOLOGY METHOD 06/13/2022 5:[address] [facility] MCH 33.4(H) 26.0 - 32.0 pg LAB HEMATOLOGY METHOD 06/13/2022 5:[address] [facility] MCHC 34.6 30.7 - 35.5 g/dL LAB HEMATOLOGY METHOD 06/13/2022 5:[address] [facility] RDW 13.8 11.5 - 14.5 % LAB HEMATOLOGY METHOD 06/13/2022 5:[address] [facility] MPV 10.0 8.8 - 12.5 fL LAB HEMATOLOGY METHOD 06/13/2022 5:[address] [facility] nRBC 0.0 <=0.0 per 100 WBCs LAB HEMATOLOGY METHOD 06/13/2022 5:[address] [facility] Differential Type Automated LAB HEMATOLOGY METHOD 06/13/2022 5:[address] [facility] Neutrophils % 69.0 % LAB HEMATOLOGY METHOD 06/13/2022 5:[address] [facility] Lymphocytes % 17.0 % LAB HEMATOLOGY METHOD 06/13/2022 5:[address] [facility] Monocytes % 10.0 % LAB HEMATOLOGY METHOD 06/13/2022 5:24 AM EST [facility] Eosinophils % 4.0 % LAB HEMATOLOGY METHOD 06/13/2022 5:[address] [facility] Basophils % 0.0 % LAB HEMATOLOGY METHOD 06/13/2022 5:[address] [facility] Immature Granulocytes % 0.0 % LAB HEMATOLOGY METHOD 06/13/2022 5:[address] [facility] Neutrophils Absolute 5.93 1.60 - 6.10 10*3/uL LAB HEMATOLOGY METHOD 06/13/2022 5:24 AM EST [facility] Lymphocytes Absolute 1.52 1.20 - 3.90 10*3/uL LAB HEMATOLOGY METHOD 06/13/2022 5:24 AM EST [facility] Monocytes Absolute 0.90 0.30 - 0.90 10*3/uL LAB HEMATOLOGY METHOD 06/13/2022 5:24 AM EST [facility] Eosinophils Absolute 0.36 0.00 - 0.50 10*3/uL LAB HEMATOLOGY METHOD 06/13/2022 5:24 AM EST [facility] Basophils Absolute 0.02 0.00 - 0.10 10*3/uL LAB HEMATOLOGY METHOD 06/13/2022 5:[address] [facility] Immature Granulocytes Absolute 0.03 0.00 - 0.06 10*3/uL LAB HEMATOLOGY METHOD 06/13/2022 5:24 AM EST [facility] Blood Venous blood specimen / Unknown Venipuncture / Unknown 06/13/2022 5:18 AM EST 06/13/2022 5:21 AM EST Narrative [facility] - 06/13/2022 5:24 AM EST Therapeutic decision making should be based on absolute values, rather than percentages. Yayo Solis QUILT STUFFER LAB BLOOD ORDERABLES Final Result [facility] [address] [place] [address] * (ABNORMAL) POCT glucose meter (06/13/2022 3:22 AM EST) POCT Glucose 110(H) 74 - 99 mg/dL 06/13/2022 3:25 AM EST [facility] Comment:Accuracy of [...] to the main labortory for testing. Comment 06/13/2022 3:25 AM EST [facility] Documentation Liaison ID MarloPuma 06/13/2022 3:25 AM EST [facility] Device ID [id number] 06/13/2022 3:25 AM EST [facility] Specimen Type POC Capillary 06/13/2022 3:25 AM EST [facility] Blood Capillary blood specimen / Unknown 06/13/2022 3:22 AM EST 06/13/2022 3:25 AM EST Preston Doherty MD LAB POINT OF CARE TE ST DOCKED DEVICE UNSOLICITED RESULTS Final Result Performing Organization Address City/State/[facility] Co fl Phone Number [facility] [address] [place] [phone] * XR Chest 2 Views (06/13/2022 1:06 AM EST) Anatomical Region Laterality Modality Chest Digital Radiogra phy Impressions 06/13/2022 6:06 AM EST Enlarged cardiomediastinal silhouette. Small left lower lobe patchy opacities, likely small pleural effusion with atelectasis. CRITICAL RESULT: ?? No. COMMUNICATION: Per this written report. ATTESTATION: Not applicable. Dictated by Lexie Masterson MD on 06/13/2022 6:01 AM Signed by Lexie Masterson MD on 06/13/2022 6:06 AM Narrative 06/13/2022 6:06 AM EST Exam/Procedure: XR CHEST 2 VIEWS ordered by YAYO SOLIS [id number] CLINICAL INDICATION: Leukocytosis TECHNIQUE: XR CHEST 2 VIEWS COMPARISON: none FINDINGS: Enlarged cardiomediastinal silhouette. Right lung is clear. Small left lower lobe patchy opacity. No significant pneumothorax. No focal consolidation. No right- sided pleural effusion. Degenerative change in the thoracic spine. Procedure Note Victor Manuel Masterson MD - 06/13/2022 Exam/Procedure: XR CHEST 2 VIEWS ordered by YAYO SOLIS [id number] CLINICAL INDICATION: Leukocytosis TECHNIQUE: XR CHEST 2 VIEWS COMPARISON: none FINDINGS: Enlarged cardiomediastinal silhouette. Right lung is clear. Small leftlower lobe patchy opacity. No significant pneumothorax. No focalconsolidation. No right- sided pleural effusion. Degenerative change in thethoracic spine. IMPRESSION: Enlarged cardiomediastinal silhouette. Small left lower lobe patchy opacities, likely small pleural effusion withatelectasis. CRITICAL RESULT: No. COMMUNICATION: Per this written report. ATTESTATION: Not applicable. Dictated by Lexie Masterson MD on 06/13/2022 6:01 AM Signed by Lexie Masterson MD on 06/13/2022 6:06 AM Yayo Mo Mathieu VICTOR IMG XR PROCEDURES Final Res ult * ECG Adult (06/13/2022 1:04 AM EST) EKG DIAGNOSIS CLASS Borderline Abnormal MUSE ECG Ventricular Rate 61 BPM MUSE ECG Atrial Rate 61 BPM MUSE ECG MI Interval 166 ms MUSE ECG QRSD Interval 78 ms MUSE ECG QT Interval 442 ms MUSE ECG QTC Interval 444 ms MUSE ECG P [place] 73 degrees MUSE ECG R [place] -2 degrees MUSE ECG T Wave [place] 40 degrees MUSE ECG Diagnosis Normal sinus rhythm MUSE ECG Diagnosis Low voltage QRS MUSE ECG Diagnosis Borderline ECG MUSE ECG Diagnosis Confirmed by Jac Del Cid ([id number]) on 06/13/2022 7:56:03 AM MUSE ECG 06/13/2022 1:04 AM EST 06/13/2022 7:56 AM EST Yayo Solis KAYLEIGH ECG ORDERABLES Final Resul t MUSE ECG * SARS-CoV-2 COVID-19/Influenza A,B (06/13/2022 12:55 AM EST) Pathologist [facility] SARS CoV-2/COVID-1 9 RNA PCR Result Not Detected Not Detected 06/13/2022 1:44 AM EST [facility] Influenza A Virus PCR Result Not Detected Not Detected 06/13/2022 1:44 AM EST [facility] Influenza B Virus PCR Result Not Detected Not Detected 06/13/2022 1:44 AM EST [facility] Swab Nasopharyngeal structure / Unknown Non-blood Collection / Unknown 06/13/2022 12:55 AM EST 06/13/2022 1:09 AM EST Narrative [facility] - 06/13/2022 1:44 AM EST This test was performed using the Jareth SARS-CoV-2 & Influenza A/B assay on the [employer] En[employer] Latosha analyzer, an RT-PCR based method. This assay is for in vitro diagnostic use under FDA Emergency Use Authorization only. Negative results do not preclude infection with the SARS-CoV-2 virus and should not be the sole basis of a patient treatment/management or public health decision. Follow up testing should be performed according to the current CDC recommendations. The limit of detection (LoD) for this assay is 12 cp/mL SARS-CoV-2 RNA. Use of the Jareth SARS-CoV-2 & Influenza A/B assay in an asymptomatic screening??population is intended to be used as?? part of an infection control plan that may include additional preventative measures, such as a predefined serial testing plan or directed testing of high-risk individuals. Negative results should be considered presumptive and do not preclude current or future infection obtained through community transmission or other exposures. Negative results must be considered in the context of an individual's recent exposures, history, presence of clinical signs and symptoms consistent with COVID-19. Hanane SOTELO LAB MICROBIOLOGY - GENERAL O RDERABLES Final Result [facility] [address] [place] [address] * (ABNORMAL) Wound Culture and Gram Stain (06/13/2022 12:55 AM EST) CULTURE READING WOUND Light Growth 06/16/2022 11:07 AM EST [facility] CULTURE READING WOUND 1+ Mixed skin elissa(A) TRAV 06/16/2022 11:07 AM EST [facility] Comment:The organism value f or this result has been updated. These results have been appended to the previously preliminary verified report. CULTURE READING WOUND 1+ Staphylococcus aureus(A) TRAV 06/16/2022 11:07 AM EST [facility] Comment:The organism value f or this result has been updated. These results have been appended to the previously preliminary verified report. Gram Stain Result Rare Polymorphonuclear leukocytes(A) 06/16/2022 11:07 AM EST [facility] Gram Stain Result Rare Gram positive cocci in pairs(A) 06/16/2022 11:07 AM EST [facility] Swab Topography unknown / Unknown Non-blood Collection / Unknown 06/13/2022 12:55 AM EST 06/13/2022 1:09 AM EST Narrative Organism Antibiotic Method Susceptibility Staphylococcus aureus Clindamycin TRAV Resistant Comment: This isolate is presumed to be resistant to clindamycin based on detection of inducible clindamycin resistance. Previously prelim verified as Resistant (<=0.5 ug/ml) on 06/15/2022 at 2307 EST. Staphylococcus aureus Daptomycin TRAV <=1 ug/ml: Susceptible Staphylococcus aureus Erythromycin TRAV >4 ug/ml: Resistant Staphylococcus aureus Gentamicin TRAV <=1 ug/ml: Susceptible Staphylococcus aureus Linezolid TRAV <=1 ug/ml: Susceptible Staphylococcus aureus Minocycline TRAV <=1 ug/ml: Susceptible Staphylococcus aureus Oxacillin TRAV 0.5 ug/ml: Susceptible Staphylococcus aureus Penicillin G TRAV >1 ug/ml: Resistant Staphylococcus aureus Tetracycline TRAV <=0.5 ug/ml: Susceptible Staphylococcus aureus Trimethoprim/Sulfa methoxazo le TRAV <=0.5/9.5 ug/ml: Susceptible Staphylococcus aureus Vancomycin TRAV 1 ug/ml: Susceptible Fabián Amezquita MD LAB MICROBIOLOGY - GENERAL ORDER JANELLE Final Result [facility] [address] [place] [address] * (ABNORMAL) POCT glucose meter (06/13/2022 12:54 AM EST) [facility] POCT Glucose 71(L) 74 - 99 mg/dL 06/13/2022 1:00 AM EST [facility] Comment:Accuracy of [...] to the main labortory for testing. Comment 06/13/2022 1:00 AM EST [facility] Documentation Liaison ID MarloPuma 06/13/2022 1:00 AM EST [facility] Device ID [id number] 06/13/2022 1:00 AM EST [facility] Specimen Type POC Capillary 06/13/2022 1:00 AM EST [facility] Blood Capillary blood specimen / Unknown 06/13/2022 12:54 AM EST 06/13/2022 1:00 AM EST us Preston Doherty MD LAB POINT OF CARE TE ST DOCKED DEVICE UNSOLICITED RESULTS Final Result Performing Organization Address [facility] Co de Phone Number [facility] [address] [place] [address] * (ABNORMAL) POCT glucose meter (06/12/2022 10:27 PM EST) POCT Glucose 63(L) 74 - 99 mg/dL 06/12/2022 10:30 PM EST [facility] Comment:Accuracy of a glucos e result obtained from a capillary whole blood specimen relies upon adequate, non-compromised capillary blood flow. If the capillary glucose result is not consistent with the patient's clinical signs and symptoms, glucose testing should be repeated with either an arterial or venous sample on the glucometer or sent to the main labortory for testing. Comment 06/12/2022 10:30 PM EST [facility] Documentation Liaison ID Kayla Medina 06/12/2022 10:30 PM EST [facility] Device ID [id number] 06/12/2022 10:30 PM EST [facility] Specimen Type POC Capillary 06/12/2022 10:30 PM EST [facility] Blood Capillary blood specimen / Unknown 06/12/2022 10:27 PM EST 06/12/2022 10:30 PM EST Elisabet Castelan MD LAB POINT OF CARE TE ST DOCKED DEVICE UNSOLICITED RESULTS Final Result Performing Organization Address City/[facility] Co de Phone Number [facility] [address] [place] [address] documented in this encounter Visit Diagnoses Diagnosis Finger infection- Primary Unspecified local infection of skin and subcutaneous tissue Felon of finger Uncontrolled other specified diabetes mellitus with hyperglycemia (CMS/HCC) Closed fracture of tuft of distal phalanx of finger documented in this encounter Admitting Diagnoses Diagnosis Felon of finger documented in this encounter Administered Medications Inactive Administered Medications - up to 3 most recent administrations Medication Order MAR Action Action Date Dose Rate Site acetaminophen (Tylenol) tablet 650 mg 650 mg, Oral, Every 6 hours PRN, Starting on Sat06/13/22 at 1608, Until Sat06/18/22 at 1950, Routine, moderate pain Given 06/17/2022 3:50 PM EST 650 mg Given 06/15/2022 8:49 PM EST 650 mg Given 06/14/2022 8:31 PM EST 650 mg albuterol 108 (90 Base) MCG/ACT inhaler 2 puff 2 puff, Inhalation, Every 6 hours PRN, Starting on Sat06/13/22 at 0034, Until Sat06/18/22 at 1950, Routine, wheezing, shortness of breath amitriptyline (Elavil) tablet 10 mg 10 mg, Oral, Nightly, First dose on Sat06/14/22 at 2100, Until Discontinued, Routine Given 06/17/2022 9:31 PM EST 10 mg Given 06/16/2022 8:54 PM EST 10 mg Given 06/15/2022 8:49 PM EST 10 mg aspirin chewable tablet 81 mg 81 mg, Oral, Daily, First dose on Sat06/13/22 at 0900, Until Discontinued, Routine Given 06/18/2022 8:52 AM EST 81 mg Given 06/17/2022 9:05 AM EST 81 mg Given 06/16/2022 8:07 AM EST 81 mg atorvastatin (Lipitor) tablet 80 mg 80 mg, Oral, Nightly, First dose on Sat06/13/22 at 0045, Until Discontinued, Routine Given 06/17/2022 9:29 PM EST 80 mg Given 06/16/2022 8:53 PM EST 80 mg Given 06/15/2022 8:49 PM EST 80 mg carvedilol (Coreg) tablet 12.5 mg 12.5 mg, Oral, 2 times daily, First dose on Sat06/13/22 at 0045, Until Discontinued, Routine Given 06/18/2022 8:52 AM EST 12.5 mg Given 06/17/2022 9:05 AM EST 12.5 mg Given 06/16/2022 8:53 PM EST 12.5 mg cefTRIAXone (Rocephin) 1 g in sodium chloride 0.9% 100 mL IVPB (Mini-Bag Plus) 1 g, Intravenous, Every 24 hours, First dose (after last modification) on Ana 06/14/22 at 1700, Until Discontinued, Routine New Bag 06/14/2022 5:27 PM EST 1 g 220 mL/hr citalopram (CeleXA) tablet 20 mg 20 mg, Oral, Daily, First dose on Sat06/13/22 at 0900, Until Discontinued, Routine Given 06/18/2022 8:52 AM EST 20 mg Given 06/17/2022 9:05 AM EST 20 mg Given 06/16/2022 8:07 AM EST 20 mg clindamycin (Cleocin) capsule 450 mg 450 mg, Oral, 3 times daily, 21 doses, First dose on Sat06/15/22 at 1030, Last dose on Sat06/21/22 at 2100, Routine Given 06/16/2022 8:08 AM EST 450 mg Given 06/15/2022 8:49 PM EST 450 mg Given 06/15/2022 4:20 PM EST 450 mg dextrose 10 % (D10W) bolus 125 mL 125 mL (12.5 g), Intravenous, Every 15 min PRN, Starting on Sat06/13/22 at 0038, Until Sat06/18/22 at 1950, Administer over 15 Minutes, Routine, POC BG 51 to 70 mg/dL dextrose 10 % (D10W) bolus 250 mL 250 mL (25 g), Intravenous, Every 15 min PRN, Starting on Sat06/13/22 at 0038, Until Sat06/18/22 at 1950, Administer over 15 Minutes, Routine, POC BG is less than or equal to 50 mg/dL doxycycline (Vibra-Tabs) tablet 100 mg 100 mg, Oral, 2 times daily, 20 doses, First dose on Sat06/16/22 at 0900, Last dose on Sat06/25/22 at 2100, Routine Given 06/18/2022 8:52 AM EST 100 mg Given 06/17/2022 9:31 PM EST 100 mg Given 06/17/2022 9:05 AM EST 100 mg enoxaparin (Lovenox) syringe 40 mg 40 mg, Subcutaneous, Daily, First dose on Sat06/14/22 at 0900, Until Discontinued, Routine Given 06/18/2022 8:52 AM EST 40 mg Left Lower Abdomen Given 06/17/2022 9:06 AM EST 40 mg Le ft Lower Abdomen Given 06/16/2022 8:08 AM EST 40 mg Le ft Lower Abdomen glucagon (human recombinant) injection 1 mg 1 mg, Intramuscular, Every 15 min PRN, Starting on Sat06/13/22 at 0038, Until Sat06/18/22 at 1950, Routine, If patient NPO, lacks IV access, May Give IM and POC BG less than or equal to 70 mg/dL, glucose (Glutose) 40 % oral gel 15 grams of glucose 15 grams of glucose, Sublingual, Every 15 min PRN, Starting on Sat06/13/22 at 0038, Until Sat06/18/22 at 1950, Routine, low blood sugar, POC BG 71 to 89 mg/dL glucose (Glutose) 40 % oral gel 15 grams of glucose 15 grams of glucose, Sublingual, Every 15 min PRN, Starting on Sat06/13/22 at 0038, Until Sat06/18/22 at 1950, Routine, low blood sugar, BG 51?to 70 mg/dL glucose (Glutose) 40 % oral gel 30 grams of glucose 30 grams of glucose, Sublingual, Every 15 min PRN, Starting on Sat06/13/22 at 0038, Until Sat06/18/22 at 1950, Routine, low blood sugar, POC BG is less than or equal to 50 mg/dL insulin lispro (HumaLOG) 100 units/mL injection - Correction - Standard Dose 0-5 Units, Subcutaneous, 3 times daily with meals, First dose on Sat06/13/22 at 0830, Until Discontinued, Routine Given 06/14/2022 9:26 AM EST 1 Units Left Upper Arm (Back ) Given 06/13/2022 5:43 PM EST 1 Units Le ft Lower Abdomen Given 06/13/2022 12:47 PM EST 1 Units L eft Lower Abdomen insulin lispro (HumaLOG) injection - Correction - Nighttime Dose 0-3 Units, Subcutaneous, 2 times nightly (2100 & 0300), First dose on Sat06/13/22 at 0300, Until Discontinued, Routine isosorbide mononitrate ER (Imdur) 24 hr tablet 120 mg 120 mg, Oral, Daily, First dose on Sat06/14/22 at 0900, Until Discontinued, Routine Given 06/18/2022 8:52 AM EST 120 mg Given 06/17/2022 9:05 AM EST 120 mg Given 06/15/2022 9:46 AM EST 120 mg lidocaine (Xylocaine) 1 % injection - Pyxis Override Pull 1 dose, Starting on Sat06/12/22 at 2327, Until Sat06/13/22 at 0045 lidocaine (Xylocaine) 1 % injection 10 mL 10 mL, Infiltration, Once, 1 dose, On Sat06/12/22 at 2355, Routine Given 06/13/2022 12:45 AM EST 10 mL magnesium sulfate IVPB 2 g 2 g, Intravenous, Once, 1 dose, On Sat06/13/22 at 0620, Routine New Bag 06/13/2022 8:04 AM EST 2 g mometasone-formoterol (Dulera 200) 200-5 MCG/ACT inhaler 2 puff 2 puff, Inhalation, 2 times daily, First dose on Ana 06/14/22 at 0900, Until Discontinued, Routine Given 06/18/2022 8:53 AM EST 2 puffs Given 06/17/2022 9:32 PM EST 2 puffs Given 06/17/2022 9:06 AM EST 2 puffs ondansetron (Zofran) injection 4 mg 4 mg, Intravenous, Once, 1 dose, On 06/16/22 at 0615, Routine Given 06/16/2022 5:58 AM EST 4 mg pantoprazole (Protonix) EC tablet 40 mg 40 mg, Oral, Daily before breakfast, First dose on Sat06/13/22 at 0730, Until Discontinued, Routine Given 06/18/2022 8:00 AM EST 40 mg Given 06/17/2022 9:05 AM EST 40 mg Given 06/16/2022 8:07 AM EST 40 mg ranolazine (Ranexa) 12 hr tablet 1,000 mg 1,000 mg, Oral, 2 times daily, First dose on Sat06/13/22 at 0045, Until Discontinued, Routine Given 06/18/2022 8:52 AM EST 1,000 mg Given 06/17/2022 9:29 PM EST 1,000 mg Given 06/17/2022 9:05 AM EST 1,000 mg sodium chloride 0.9 % flush 10 mL 10 mL, Intravenous, Every 8 hours PRN, Starting on Sat06/13/22 at 0031, Until 06/18/22 at 1950, Routine, line care sodium chloride 0.9 % flush 10 mL 10 mL, Intravenous, As needed, Starting on Sat06/13/22 at 0031, Until Sat06/18/22 at 1950, Routine, line care ticagrelor (Brilinta) tablet 90 mg 90 mg, Oral, 2 times daily, First dose on Sat06/13/22 at 0045, Until Discontinued, Routine Given 06/18/2022 8:55 AM EST 90 mg Given 06/17/2022 9:31 PM EST 90 mg Given 06/17/2022 9:05 AM EST 90 mg vancomycin in dextrose (Vancocin) IVPB 1,000 mg 1,000 mg, Intravenous, Every 12 hours, First dose on Sat06/13/22 at 0700, Until Discontinued, at 200 mL/hr, Routine New Bag 06/15/2022 9:47 AM EST 1,000 mg 200 mL/hr New Bag 06/14/2022 8:31 PM EST 1,000 mg 200 mL/hr New Bag 06/14/2022 6:15 AM EST 1,000 mg 200 mL/hr documented in this encounter Active and Recently Administered Medications Times are shown in EST. Scheduled Medication Order 06/16/2022 06/17/2022 06/18/2022 amitriptyline (Elavil) tablet 10 mg 10 mg, Oral, Nightly, First dose on Ana 06/14/22 at 2100, Until Discontinued, Routine 2053 (Given - Provider: Bill Falk LPN) 2130 (Given - Provider: Bill Falk LPN) aspirin chewable tablet 81 mg 81 mg, Oral, Daily, First dose on Sat06/13/22 at 0900, Until Discontinued, Routine 08 (Given - Provider: Génesis See RN) 09 (Given - Provider: Génesis See RN) 0852 (Given - Provider: Génesis See RN) atorvastatin (Lipitor) tablet 80 mg 80 mg, Oral, Nightly, First dose on Sat06/13/22 at 0045, Until Discontinued, Routine 2052 (Given - Provider: Bill Falk LPN) 2128 (Given - Provider: Bill Falk LPN) carvedilol (Coreg) tablet 12.5 mg 12.5 mg, Oral, 2 times daily, First dose on Sat06/13/22 at 0045, Until Discontinued, Routine 08 (Not Given - Provider: Génesis See RN - Reason: Hold for condition: must add comment )2052 (Given - Provider: Bill Falk LPN) 904 (Given - Provider: Génesis See RN)2128 (Not Given - Provider: Bill Falk LPN - Reason: Order parameters not met - Comment: bp under 115) 0852 (Given - Provider: Génesis See RN) citalopram (CeleXA) tablet 20 mg 20 mg, Oral, Daily, First dose on Sat06/13/22 at 0900, Until Discontinued, Routine 0807 (Given - Provider: Génesis See RN) 09 (Given - Provider: Génesis See RN) 0852 (Given - Provider: Génesis See RN) clindamycin (Cleocin) capsule 450 mg (CANCELED) 450 mg, Oral, 3 times daily, 21 doses, First dose on Sat06/15/22 at 1030, Last dose on Sat06/21/22 at 2100, Routine 08 (Given - Provider: Génesis See RN) doxycycline (Vibra-Tabs) tablet 100 mg 100 mg, Oral, 2 times daily, 20 doses, First dose on Sat06/16/22 at 0900, Last dose on Sat06/25/22 at 2100, Routine 0840 (Given - Provider: Génesis See RN)2053 (Given - Provider: Bill Falk LPN) 904 (Given - Provider: Génesis See RN)2130 (Given - Provider: Bill Falk LPN) 0852 (Given - Provider: Génesis See RN) enoxaparin (Lovenox) syringe 40 mg 40 mg, Subcutaneous, Daily, First dose on Sat06/14/22 at 0900, Until Discontinued, Routine 08 (Given - Provider: Génesis See RN) 09 (Given - Provider: Génesis See RN) 0852 (Given - Provider: Génesis See RN) insulin lispro (HumaLOG) 100 units/mL injection - Correction - Standard Dose 0-5 Units, Subcutaneous, 3 times daily with meals, First dose on Sat06/13/22 at 0830, Until Discontinued, Routine 0837 (Not Given - Provider: Génesis See RN - Reason: Order parameters not met)1225 (Not Given - Provider: Génesis See RN - Reason: Order parameters not met)1712 (Not Given - Provider: Génesis See RN - Reason: Order parameters not met) 0905 (Not Given - Provider: Génesis See RN - Reason: Order parameters not met)1157 (Not Given - Provider: Génesis See RN - Reason: Order parameters not met)1644 (Not Given - Provider: Génesis See RN - Reason: Order parameters not met) 0756 (Not Given - Provider: Génesis See RN - Reason: Order parameters not met)1202 (Not Given - Provider: Génesis See RN - Reason: Order parameters not met)1635 (Not Given - Provider: Génesis eSe RN - Reason: Order parameters not met) insulin lispro (HumaLOG) injection - Correction - Nighttime Dose 0-3 Units, Subcutaneous, 2 times nightly (2100 & 0300), First dose on Sat06/13/22 at 0300, Until Discontinued, Routine 0240 (Not Given - Provider: Jermaine Fuller LPN - Reason: Order parameters not met)2019 (Not Given - Provider: Bill Falk LPN - Reason: Order parameters not met) 0315 (Not Given - Provider: Bill Falk LPN - Reason: Order parameters not met)2133 (Not Given - Provider: Bill Falk LPN - Reason: Order parameters not met) 0321 (Not Given - Provider: Bill Falk LPN - Reason: Order parameters not met) isosorbide mononitrate ER (Imdur) 24 hr tablet 120 mg 120 mg, Oral, Daily, First dose on Sat06/14/22 at 0900, Until Discontinued, Routine 0806 (Not Given - Provider: Génesis See RN - Reason: Hold for condition: must add comment ) 0905 (Given - Provider: Génesis See RN) 0852 (Given - Provider: Génesis See RN) mometasone-formoterol (Dulera 200) 200-5 MCG/ACT inhaler 2 puff 2 puff, Inhalation, 2 times daily, First dose on Ana 06/14/22 at 0900, Until Discontinued, Routine 0809 (Given - Provider: Génesis See RN)2054 (Given - Provider: Bill Falk LPN) 09 (Given - Provider: Génesis See RN)2131 (Given - Provider: Bill Falk LPN) 0853 (Given - Provider: Génesis See RN) ondansetron (Zofran) injection 4 mg (COMPLETED) 4 mg, Intravenous, Once, 1 dose, On 06/16/22 at 0615, Routine 0558 (Given - Provider: Jermaine Fuller LPN) pantoprazole (Protonix) EC tablet 40 mg 40 mg, Oral, Daily before breakfast, First dose on Sat06/13/22 at 0730, Until Discontinued, Routine 0807 (Given - Provider: Génesis See RN) 0905 (Given - Provider: Génesis See RN) 08 (Given - Provider: Génesis See RN) ranolazine (Ranexa) 12 hr tablet 1,000 mg 1,000 mg, Oral, 2 times daily, First dose on Sat06/13/22 at 0045, Until Discontinued, Routine 0807 (Given - Provider: Génesis See RN)2052 (Given - Provider: Bill Falk LPN) 09 (Given - Provider: Génesis See RN)2128 (Given - Provider: Bill Falk LPN) 0852 (Given - Provider: Génesis See RN) ticagrelor (Brilinta) tablet 90 mg 90 mg, Oral, 2 times daily, First dose on Sat06/13/22 at 0045, Until Discontinued, Routine 0808 (Given - Provider: Génesis See RN)2053 (Given - Provider: Bill Falk LPN) 09 (Given - Provider: Génesis See RN)2130 (Given - Provider: Bill Falk LPN) 0855 (Given - Provider: Génesis See RN) PRN Medication Order 06/16/2022 06/17/2022 06/18/2022 acetaminophen (Tylenol) tablet 650 mg 650 mg, Oral, Every 6 hours PRN, Starting on Sat06/13/22 at 1608, Until Sat06/18/22 at 1950, Routine, moderate pain 1550 (Given - Provider: Thomas See RN) albuterol 108 (90 Base) MCG/ACT inhaler 2 puff 2 puff, Inhalation, Every 6 hours PRN, Starting on Sat06/13/22 at 0034, Until Sat06/18/22 at 1950, Routine, wheezing, shortness of breath dextrose 10 % (D10W) bolus 125 mL(Linked Group 1) 125 mL (12.5 g), Intravenous, Every 15 min PRN, Starting on Sat06/13/22 at 0038, Until Sat06/18/22 at 1950, Administer over 15 Minutes, Routine, POC BG 51 to 70 mg/dL dextrose 10 % (D10W) bolus 250 mL(Linked Group 2) 250 mL (25 g), Intravenous, Every 15 min PRN, Starting on Sat06/13/22 at 0038, Until Sat06/18/22 at 1950, Administer over 15 Minutes, Routine, POC BG is less than or equal to 50 mg/dL glucagon (human recombinant) injection 1 mg 1 mg, Intramuscular, Every 15 min PRN, Starting on Sat06/13/22 at 0038, Until Sat06/18/22 at 1950, Routine, If patient NPO, lacks IV access, May Give IM and POC BG less than or equal to 70 mg/dL, glucose (Glutose) 40 % oral gel 15 grams of glucose 15 grams of glucose, Sublingual, Every 15 min PRN, Starting on Sat06/13/22 at 0038, Until Sat06/18/22 at 1950, Routine, low blood sugar, POC BG 71 to 89 mg/dL glucose (Glutose) 40 % oral gel 15 grams of glucose(Linked Group 1) 15 grams of glucose, Sublingual, Every 15 min PRN, Starting on Sat06/13/22 at 0038, Until Sat06/18/22 at 1950, Routine, low blood sugar, BG 51?to 70 mg/dL glucose (Glutose) 40 % oral gel 30 grams of glucose(Linked Group 2) 30 grams of glucose, Sublingual, Every 15 min PRN, Starting on Sat06/13/22 at 0038, Until Sat06/18/22 at 1950, Routine, low blood sugar, POC BG is less than or equal to 50 mg/dL sodium chloride 0.9 % flush 10 mL(Linked Group 3) 10 mL, Intravenous, Every 8 hours PRN, Starting on Sat06/13/22 at 0031, Until Sat06/18/22 at 1950, Routine, line care sodium chloride 0.9 % flush 10 mL(Linked Group 3) 10 mL, Intravenous, As needed, Starting on Sat06/13/22 at 0031, Until Sat06/18/22 at 1950, Routine, line care Linked Groups Order Group 1: glucose (Glutose) 40 % oral gel 15 grams of glucoseJump to med 15 grams of glucose, Sublingual, Every 15 min PRN, Starting on Sat06/13/22 at 0038, Until Sat06/18/22 at 1950, Routine, low blood sugar, BG 51?to 70 mg/dL Or dextrose 10 % (D10W) bolus 125 mLJump to med 125 mL (12.5 g), Intravenous, Every 15 min PRN, Starting on Sat06/13/22 at 0038, Until Sat06/18/22 at 1950, Administer over 15 Minutes, Routine, POC BG 51 to 70 mg/dL Group 2: dextrose 10 % (D10W) bolus 250 mLJump to med 250 mL (25 g), Intravenous, Every 15 min PRN, Starting on Sat06/13/22 at 0038, Until Sat06/18/22 at 1950, Administer over 15 Minutes, Routine, POC BG is less than or equal to 50 mg/dL Or glucose (Glutose) 40 % oral gel 30 grams of glucoseJump to med 30 grams of glucose, Sublingual, Every 15 min PRN, Starting on Sat06/13/22 at 0038, Until Sat06/18/22 at 1950, Routine, low blood sugar, POC BG is less than or equal to 50 mg/dL Group 3: Insert peripheral IV (COMPLETED) Once, On Sat06/13/22 at 0032, For 1 occurrence And Saline lock IV (COMPLETED) Once, On Sat06/13/22 at 0032, For 1 occurrence And sodium chloride 0.9 % flush 10 mLJump to med 10 mL, Intravenous, Every 8 hours PRN, Starting on Sat06/13/22 at 0031, Until Sat06/18/22 at 1950, Routine, line care And sodium chloride 0.9 % flush 10 mLJump to med 10 mL, Intravenous, As needed, Starting on Sat06/13/22 at 0031, Until Sat06/18/22 at 1950, Routine, line care documented in this encounter Care Teams Micromatic Hone Operator Relationship Specialty Start Date End Date Junior Alas MD [address] [place] [address] PCP - General 10/07/20 documented as of this encounter
--- OUTSIDE RECORDS SUMMARY | 2024-04-21 07:41 | XMS_ITS | Encounter Summary ---
Author Organization Healthcare Address [address] [place] [address] Care Team Providers Care Environmental Intern Name Role Phone Unavailable Primary Care Provider Unavailabl e Encounter Details Date Type Department Care Team (Late st Contact Info) Description 08/17/2015 [facility] AEHR Vitals Encounter [facility] OUTPATIENT CONVERSIONS [address] [place] [address] Provider, MD Amie [address] [place] [phone] Social History Tobacco Use Types Packs/Day [...] - Inhaled Oxygen Concentration - - Weight 112 kg (247 lb 0.1 oz) 08/17/2015 11:15 A M EDT Height 167.6 cm (5' 6 ) 08/17/2015 11:15 AM EDT Body Mass Index 39.87 08/17/2015 11:15 AM EDT documented in this encounter Plan of Treatment Not on file documented as of this encounter Visit Diagnoses Not on filedocumented in this encounter
--- OUTSIDE RECORDS SUMMARY | 2024-04-21 07:41 | XMS_ITS | Encounter Summary ---
Author Organization Healthcare Address [address] [place] [address] Care Team Providers Care Watch Adjuster Name Role Phone Unavailable Primary Care Provider Unavailabl e Encounter Details Date Type Department Care Team (Late st Contact Info) Description 05/03/2014 Legacy AEHR Vitals Encounter [facility] OUTPATIENT CONVERSIONS [address] [place] [address] Provider, MD mAie [address] [place] [address] Social History Tobacco Use Types Packs/Day [...] Oxygen Concentration - - Weight 112 kg (246 lb 8 oz) 05/03/2014 11:22 AM EST Height 167.6 cm (5' 6 ) 05/03/2014 11:22 AM EST Body Mass Index 39.79 05/03/2014 11:22 AM EST documented in this encounter Plan of Treatment Not on file documented as of this encounter Visit Diagnoses Not on filedocumented in this encounter
--- OUTSIDE RECORDS SUMMARY | 2024-04-21 07:41 | XMS_ITS | Encounter Summary ---
Author Organization Healthcare Address [address] [place] [address] Care Team Providers Care Import/Export Specialist Name Role Phone Unavailable Primary Care Provider Unavailabl e Encounter Details Date Type Department Care Team (Late st Contact Info) Description 12/26/2011 Legacy AEHR Vitals Encounter [facility] OUTPATIENT CONVERSIONS [address] [place] [address] Provider, MD Amie [address] [place] [id number] Social History Tobacco Use Types Packs/Day [...] Oxygen Concentration - - Weight 112 kg (248 lb) 12/26/2011 11:05 AM EDT Height 167.6 cm (5' 6 ) 12/26/2011 11:05 AM EDT Body Mass Index 40.03 12/26/2011 11:05 AM EDT documented in this encounter Plan of Treatment Not on file documented as of this encounter Visit Diagnoses Not on filedocumented in this encounter
--- OUTSIDE RECORDS SUMMARY | 2024-04-21 07:41 | XMS_ITS | Encounter Summary ---
Author Organization Healthcare Address [address] [place] [address] Care Team Providers Care Dental Amalgam Processor Name Role Phone Unavailable Primary Care Provider Unavailabl e Encounter Details Date Type Department Care Team ([facility] st Contact Info) Description 04/25/2016 Legacy AEHR Vitals Encounter [facility] OUTPATIENT CONVERSIONS [address] [place] [address] Provider, MD Amie [address] [place] [address] Social History Tobacco Use Types Packs/Day [...] - Inhaled Oxygen Concentration - - Weight 109 kg (240 lb 0.9 oz) 04/25/2016 1:18 PM EST Height 167.6 cm (5' 6 ) 04/25/2016 1:18 PM EST Body Mass Index 38.75 04/25/2016 1:18 PM EST documented in this encounter Plan of Treatment Not on file documented as of this encounter Visit Diagnoses Not on filedocumented in this encounter
--- OUTSIDE RECORDS SUMMARY | 2024-04-21 07:41 | XMS_ITS | Encounter Summary ---
Author Organization Healthcare Address [address] [place] [address] Care Team Providers Care Lead Slot Technician Name Role Phone Unavailable Primary Care Provider Unavailabl e Encounter Details Date Type Department Care Team (Late st Contact Info) Description 07/29/2013 Legacy AEHR Vitals Encounter [facility] OUTPATIENT CONVERSIONS [address] [place] [address] Provider, MD Amie [address] [place] [address] Social History Tobacco Use Types Packs/Day [...] Oxygen Concentration - - Weight 113 kg (249 lb 3 oz) 07/29/2013 1:[address] Height 167.6 cm (5' 6 ) 07/29/2013 1:15 PM EST Body Mass Index 40.22 07/29/2013 1:15 PM EST documented in this encounter Plan of Treatment Not on file documented as of this encounter Visit Diagnoses Not on filedocumented in this encounter
--- OUTSIDE RECORDS SUMMARY | 2024-04-21 07:41 | XMS_ITS | Encounter Summary ---
Author Organization Healthcare Address [address] [place] [address] Care Team Providers Care Swatch Paster Name Role Phone Unavailable Primary Care Provider Unavailabl e Encounter Details Date Type Department Care Team (Late st Contact Info) Description 03/15/2016 Legacy AEHR Vitals Encounter [facility] OUTPATIENT CONVERSIONS [address] [place] [address] Provider, MD Amie [address] [place] [address] Social History Tobacco Use Types Packs/Day [...] - - Weight 106 kg (233 lb 0.1 oz) 03/15/2016 1:25 PM EDT Height 167.6 cm (5' 6 ) 03/15/2016 1:25 PM EDT Body Mass Index 37.61 03/15/2016 1:25 PM EDT documented in this encounter Plan of Treatment Not on file documented as of this encounter Visit Diagnoses Not on filedocumented in this encounter
--- OUTSIDE RECORDS SUMMARY | 2024-04-21 07:41 | XMS_ITS | Encounter Summary ---
Author Organization Healthcare Address [address] [place] [address] Care Team Providers Care Manager Program Management Name Role Phone Unavailable Primary Care Provider Unavailabl e Encounter Details Date Type Department Care Team (Late st Contact Info) Description 04/05/2016 Legacy AEHR Vitals Encounter [facility] OUTPATIENT CONVERSIONS [address] [place] [address] Provider, MD Amie [address] [place] [phone] Social History Tobacco Use Types Packs/Day [...] - - Weight 112 kg (247 lb 15.9 oz) 04/05/2016 2:39 P M EST Height 167.6 cm (5' 6 ) 04/05/2016 2:39 PM EST Body Mass Index 40.03 04/05/2016 2:39 PM EST documented in this encounter Plan of Treatment Not on file documented as of this encounter Visit Diagnoses Not on filedocumented in this encounter
--- OUTSIDE RECORDS SUMMARY | 2024-04-21 07:41 | XMS_ITS | Encounter Summary ---
Author Organization Healthcare Address [address] [place] [address] Care Team Providers Care Bowling Pin Setters Installer Name Role Phone Unavailable Primary Care Provider Unavailabl e Encounter Details Date Type Department Care Team (Late st Contact Info) Description 10/05/2010 Legacy AEHR Vitals Encounter [facility] OUTPATIENT CONVERSIONS [address] [place] [address] Provider, MD Amie [address] [place] [address] Social History Tobacco Use Types Packs/Day [...] - - Weight 113 kg (249 lb 8 oz) 10/05/2010 11:39 AM EDT Height - - Body Mass Index - - documented in this encounter Plan of Treatment Not on file documented as of this encounter Visit Diagnoses Not on filedocumented in this encounter
--- OUTSIDE RECORDS SUMMARY | 2024-04-21 07:41 | XMS_ITS | Encounter Summary ---
Author Organization Healthcare Address [address] [place] [address] Care Team Providers Care Cover Marker Name Role Phone Unavailable Primary Care Provider Unavailabl e Encounter Details Date Type Department Care Team (Late st Contact Info) Description 03/08/2016 Legacy AEHR Vitals Encounter [facility] OUTPATIENT CONVERSIONS [address] [place] [address] Provider, MD Amie [address] [place] [address] Social History Tobacco Use Types Packs/Day [...] Oxygen Concentration - - Weight 110 kg (242 lb) 03/08/2016 1:09 PM EDT Height 167.6 cm (5' 6 ) 03/08/2016 1:09 PM EDT Body Mass Index 39.06 03/08/2016 1:09 PM EDT documented in this encounter Plan of Treatment Not on file documented as of this encounter Visit Diagnoses Not on filedocumented in this encounter
--- OUTSIDE RECORDS SUMMARY | 2024-04-21 07:41 | XMS_ITS | Encounter Summary ---
Author Organization Healthcare Address [address] [place] [address] Care Team Providers Care Clinical Dietetic Technician Name Role Phone Unavailable Primary Care Provider Unavailabl e Encounter Details Date Type Department Care Team (Late st Contact Info) Description 08/03/2015 Legacy AEHR Vitals Encounter [facility] OUTPATIENT CONVERSIONS [address] [place] [address] Provider, MD Amie [address] [place] [address] Social History Tobacco Use Types Packs/Day [...] - - Weight 113 kg (249 lb 4 oz) 08/03/2015 8:[address] Height 167.6 cm (5' 6 ) 08/03/2015 8:28 AM EST Body Mass Index 40.23 08/03/2015 8:28 AM EST documented in this encounter Plan of Treatment Not on file documented as of this encounter Visit Diagnoses Not on filedocumented in this encounter
--- OUTSIDE RECORDS SUMMARY | 2024-04-21 07:41 | XMS_ITS | Encounter Summary ---
Author Organization Healthcare Address [address] [place] [address] Care Team Providers Care Build Manager Name Role Phone Unavailable Primary Care Provider Unavailabl e Encounter Details Date Type Department Care Team (Late st Contact Info) Description 10/17/2010 Legacy AEHR Vitals Encounter [facility] OUTPATIENT CONVERSIONS [address] [place] [address] Provider, MD Amie [address] [place] [address] Social History Tobacco Use Types Packs/Day [...] - - Weight 113 kg (249 lb 5 oz) 10/17/2010 10:40 AM EDT Height - - Body Mass Index - - documented in this encounter Plan of Treatment Not on file documented as of this encounter Visit Diagnoses Not on filedocumented in this encounter
--- OUTSIDE RECORDS SUMMARY | 2024-04-21 07:41 | XMS_ITS | Encounter Summary ---
Author Organization Healthcare Address [address] [place] [address] Care Team Providers Care Supervisor Refining Name Role Phone Unavailable Primary Care Provider Unavailabl e Encounter Details Date Type Department Care Team (Late st Contact Info) Description 01/11/2016 Legacy AEHR Vitals Encounter [facility] OUTPATIENT CONVERSIONS [address] [place] [address] Provider, MD Amie [address] [place] [address] Social History Tobacco Use Types Packs/Day [...] Weight 112 kg (247 lb 0.1 oz) 01/11/2016 2:25 PM EDT Height 167.6 cm (5' 6 ) 01/11/2016 2:25 PM EDT Body Mass Index 39.87 01/11/2016 2:25 PM EDT documented in this encounter Plan of Treatment Not on file documented as of this encounter Visit Diagnoses Not on filedocumented in this encounter
--- OUTSIDE RECORDS SUMMARY | 2024-04-21 07:41 | XMS_ITS | Encounter Summary ---
Author Organization Healthcare Address [address] [place] [address] Care Team Providers Care Altitude Chamber Technician Name Role Phone Unavailable Primary Care Provider Unavailabl e Encounter Details Date Type Department Care Team (Late st Contact Info) Description 07/06/2016 Legacy AEHR Vitals Encounter [facility] OUTPATIENT CONVERSIONS [address] [place] [address] Provider, MD Amie [address] [place] [address] Social History Tobacco Use Types Packs/Day [...] - - Weight 112 kg (246 lb 5.1 oz) 07/06/2016 11:32 A M EST Height 167.6 cm (5' 6 ) 07/06/2016 11:32 AM EST Body Mass Index 39.76 07/06/2016 11:32 AM EST documented in this encounter Plan of Treatment Not on file documented as of this encounter Visit Diagnoses Not on filedocumented in this encounter
--- OUTSIDE RECORDS SUMMARY | 2024-04-21 07:41 | XMS_ITS | Encounter Summary ---
Author Organization Healthcare Address [address] [place] [address] Care Team Providers Care Gang Pusher Name Role Phone Unavailable Primary Care Provider Unavailabl e Encounter Details Date Type Department Care Team ([facility] st Contact Info) Description 05/14/2016 Legacy AEHR Vitals Encounter [facility] OUTPATIENT CONVERSIONS [address] [place] [address] Provider, MD Amie [address] [place] [address] Social History Tobacco Use Types Packs/Day [...] - - Weight 109 kg (240 lb 9.1 oz) 05/14/2016 10:39 A M EST Height 167.6 cm (5' 6 ) 05/14/2016 10:39 AM EST Body Mass Index 38.83 05/14/2016 10:39 AM EST documented in this encounter Plan of Treatment Not on file documented as of this encounter Visit Diagnoses Not on filedocumented in this encounter
--- OUTSIDE RECORDS SUMMARY | 2024-04-21 07:41 | XMS_ITS | Encounter Summary ---
Author Organization Healthcare Address [address] [place] [address] Care Team Providers Care Ground Surveillance Systems Operator Name Role Phone Junior Alas MD Primary Care Provider [phone] Encounter Details Date Type Department Care Team (Latest Contact Info) Description 06/13/2022 Travel Social History Tobacco Use Types Packs/Day [...] drink first t kaykay in the morning (EYE-PSYCHIATRY RESIDENT) to steady your nerves or to get [...] on filedocumented in this encounter Care Teams Ground Surveillance Systems Operator Relationship Specialty Start Date End Date Junior Alas MD [address] [place] [address] PCP - General 10/07/20 documented as of this encounter
--- NOTE | 2024-04-21 08:02 | SW/DCPLANNER ---
Addendum entered by Azeb Frias RN 04/21/24 15:56: MD decided to discharge patient today. Spoke with An at [facility] and DC summary will be faxed. Original Note: Patient currently resides at [facility] level of care. Updated patient information has been faxed to An ponce/ [facility]. Discharge date is unknown at this time. I will continue to follow up.
[2024-04-21] MEDS: SERTRALINE 50MG TABLET 50 MG PO (09:09)
[2024-04-21] MEDS: PANTOPRAZOLE 40MG TABLET 40 MG PO (09:09)
[2024-04-21] MEDS: AMLODIPINE 5MG TABLET 5 MG PO (09:09)
[2024-04-21] MEDS: RANOLAZINE 500MG ER TABLET 1000 MG PO (09:09)
[2024-04-21] MEDS: MAGNESIUM OXIDE 400MG TABLET 400 MG PO (09:09)
[2024-04-21] MEDS: SENNOSIDES 8.6MG/DOCUSATE 50MG TABLET 2 TAB PO (09:10)
[2024-04-21] MEDS: DIVALPROEX 250MG (Delayed-Release) TABLET 250 MG PO (09:10)
[2024-04-21] MEDS: FERROUS SULFATE 325MG TABLET 325 MG PO (09:10)
[2024-04-21] MEDS: QUETIAPINE 100MG TABLET 50 MG PO (09:10)
--- NOTE | 2024-04-21 09:14 | HMH.PTEV ---
Physical Therapy Evaluation Rehab PT IP Evaluation Start: 04/20/24 14:59 Freq: ONCE Status: Active Protocol: Document 04/21/24 09:08 KENNY (Rec: 04/21/24 09:13 KENNY [id number]) Subjective/History History History Pt is a 64 y/o male who presents s/p R BKA 04/20/24. Subjective Subjective Pt reports he lived in a custodial prior to admission. Pt reports he required some help with mobility and primarily used a w/c in the custodial. New diagnosis of cancer in past 12 No months? Rehab PT IP Eval Objective Appearance Patient Behavior Appropriate,Cooperative Patient Orientation Situation Difficulty following instructions none Speech Pattern Clear Ambulation Patient Able to Ambulate No Balance Ability to Arise Able, uses arms to help Sitting Balance Leans or slides in chair Standing Balance Unsteady Dynamic Sitting Balance Ability Fair Dynamic Standing Balance Ability Poor Transfers Chair Transfer Ability Moderate x 2 (50% assist) Sit to Stand Bed Transfer Ability Moderate x 1 (50% assist) Rehab PT IP prob,goals,plan Problems Date of Evaluation: 04/21/24 PT IP Problems Bed Mobility,Transfers,Gait, Balance,Self care,Safety Rehab Potential Rehab Potential Good Plan PT Intervention Plan Bed Mobility,Transfers,Gait, Balance,Self care,Safety, Therapeutic Exercise Other Intervention Plan 1-2 times PT Plan Frequency Daily Duration LOS Discharge Goals Bed Transfer Ability Minimal x 1 (25% assist) Sit to Stand Chair Transfer Ability Minimal x 1 (25% assist) Discharge Plan PT Discharge Plan Pt presents below baseline after BKA. Pt required Mod A to perform a stand-pivot transfer towards L side to recliner. Pt used a RW to assist with balance but demo'd difficulty managing RW. Pt would benefit from skilled inpatient rehabilitation upon d/c from [facility] to assist in returning to PLOF. Pt would benefit from skilled acute care PT while at [facility] to prevent functional decline. Eval Complexity Eval Charge Codes 15468 - Moderate Complexity PHYSICIAN CERTIFICATION: I certify the specified therapy services for Mayo Jain are required, authorized, and reviewed every 30 days.
[2024-04-21] MEDS: LACTATED RINGERS 1000ML 1,000 ML 75 ML IV (09:16)
[2024-04-21] MEDS: FLUTICASONE/SALMETEROL 250/50MCG DISKUS 1 PUFF IH (10:22)
[2024-04-21 11:19] LABS: POC Glucose,Bedside 142 (70-110)
[2024-04-21 11:34] VITALS: BP 128/61; PULSE 76; RESP 18; TEMP 36.6; O2SAT 100
--- NOTE | 2024-04-21 14:14 | P.DS_ITS ---
General Admission date:: 04/20/24 HPI HPI HPI: 64-year-old male with medical history including hypertension, mood disorder, diabetes, BPH. Recently had partial amputation of his right foot and was being followed by podiatry. Unfortunately developed worsening infection necessitating right BKA. Was brought in for elective BKA by orthopedics today. Medicine consulted to assist with care of patient and management of antibiotic regimen. Patient stable on room air. Denies any fever or chills. Having some soreness in his leg. Tolerating p.o. intake. Hospital Course Hospital Course Hospital Course: 64-year-old male who presented for elective right BKA due to nonhealing wound of right foot with previous partial amputations of foot. Given failure of antibiotics and conservative surgical management, the only option for definitive cure of infection and wound is for right BKA. Discussed case with orthopedics, requests admission and management after surgery. I agreed to admit. Initiated on empiric prophylactic antibiotics with daptomycin and cefazolin. Patient tolerated the procedure well. Problems addressed as follows: #Chronic right foot cellulitis and diabetic ulcer #Nonhealing wound #Status post right BKA - Discussed case with orthopedics, s/p right below-knee amputation 04/20/2024. - Review of patient's previous culture shows various staph species over the past few months. He has had staph resistant species that is sensitive to daptomycin but has mixed resistance to Vanco along with a staph gluteus. ? Given daptomycin for 2 days. Will benefit from 1 more day at nursing facility. Patient has essentially achieved source control with amputation however given previous infections and pathogens, will cover empirically for short course to decrease risk of infection with new clean healthy surgical wound. ? Aspirin 81 mg twice twice daily for the next 6 weeks for DVT prophylaxis. ? Will need to follow-up with orthopedic surgery within 1 week. ? Medically stable for discharge back to [facility]. #BPH #Urinary retention - Continue tamsulosin 0.4 mg nightly ? Started finasteride 5 mg as patient had 1200 mL on bladder scan requiring in and out catheterization, then Doherty catheterization. ? Consider doing voiding trial in the next 2 days at nursing facility. #Anemia - Secondary to chronic disease and chronic blood loss - Hemoglobin 8.9 today. No further episodes of bleeding. #Coronary artery disease - S/P [facility] 2019 with no intervention. Previous cardiac catheterization with stent deployment as noted. Patient was evaluated by cardiology preoperatively. ? Home aspirin 81 mg daily held. Twice daily dosing started as above for DVT prophylaxis. #Hypertension - Routine blood pressure monitoring. - Continue home therapy with amlodipine 5mg daily #Diabetes - Hemoglobin A1c 5.4% last visit 2 months ago. - Sliding scale insulin during admission. - Diabetic diet #Mood disorder - Continue Depakote 500 mg in the morning and 250 mg at night - Continue Zoloft 50 mg daily - Continue Seroquel 100 mg nightly #GERD - Continue pantoprazole 40 mg twice daily Exam Data for Last 24 hours Vital signs and Labs for Last 24 Hours: Temp Pulse Resp BP Pulse Ox O2 Del Method 97.8 F 76 18 128/61 100 Room Air 04/21/24 11:34 04/21/24 11:34 04/21/24 11:34 04/21/24 11:34 04/21/24 11:34 04/21/24 11:34 Laboratory Results - last 24 hr 04/21/24 05:29: POC Glucose 149 H 04/21/24 06:00: WBC 12.7 H, RBC 2.78 L, Hgb 8.9 L, Hct 26.1 L, MCV 93.7, MCH 31.8 H, MCHC 34.0, RDW 18.3 H, Plt Count 291, MPV 8.0, Neut % (Auto) 80.7 H, Lymph % (Auto) 11.1, Grady % (Auto) 7.9, Eos % (Auto) 0.1, Baso % (Auto) 0.2, Neut # (Auto) 10.2 H, Lymph # (Auto) 1.4, Grady # (Auto) 1.0, Eos # (Auto) 0.0, Baso # (Auto) 0.0, Sodium 131 L, Potassium 3.9, Chloride 98, Carbon Dioxide 23, Anion Gap 13.9, BUN 8 L, Creatinine 0.80, Estimated Creat Clear 96, Estimated GFR 97, Est GFR ( Amer) 117, Glucose 140 H, Calcium 7.8 L 04/21/24 11:12: POC Glucose 142 H I & O for Last 24 hours: Intake & Output 04/18/24 04/19/24 04/20/24 04/21/24 23:59 23:59 23:59 23:59 Intake Total 2160 / 3133 213 / 213 Output Total 0 / 0 870 / 870 Balance 2159 / 3133 1266 / 1266 Weight 117.027 kg 92.941 kg Constitutional Constitutional: no acute distress and obese *Routine HEENT Exam Head: Present normocephalic Eye: Present EOMI and PERRL ENT: Present mucous membranes moist *Routine Neck Exam Neck: Present supple; Absent lymphadenopathy *Routine Respiratory Exam Respiratory: Present CTA bilaterally *Routine Cardiovascular Exam Cardiovascular: Present RRR *Routine Abdominal Exam Abdominal: Present soft and normoactive bowel sounds; Absent tenderness *Routine Extremities Exam Extremities: Absent cyanosis, clubbing or edema Comments: Right BKA. *Routine Skin Exam Skin: Present warm; Absent rash *Routine Neurological Exam Neurological: Present alert and oriented X3 Results Data Completed and Pending Labs on day of discharge: Labs from last 24 hours 04/21/24 04/21/24 04/21/24 11:12 06:00 05:29 WBC 12.7 H RBC 2.78 L Hgb 8.9 L Hct 26.1 L MCV 93.7 MCH 31.8 H MCHC 34.0 RDW 18.3 H Plt Count 291 MPV 8.0 Neut % (Auto) 80.7 H Lymph % (Auto) 11.1 Grady % (Auto) 7.9 Eos % (Auto) 0.1 Baso % (Auto) 0.2 Neut # (Auto) 10.2 H Lymph # (Auto) 1.4 Grady # (Auto) 1.0 Eos # (Auto) 0.0 Baso # (Auto) 0.0 Sodium 131 L Potassium 3.9 Chloride 98 Carbon Dioxide 23 Anion Gap 13.9 BUN 8 L Creatinine 0.80 Estimated Creat Clear 96 Estimated GFR 97 Est GFR ( Amer) 117 Glucose 140 H POC Glucose 142 H 149 H Calcium 7.8 L DS: Diagnosis Discharge Diagnosis (1) Cellulitis of foot associated with diabetes mellitus: Status: Acute Code(s): E11.628 - Type 2 diabetes mellitus with other skin complications; L03.119 - Cellulitis of unspecified part of limb (2) Diabetic ulcer of foot associated with diabetes mellitus due to underlying condition, with muscle involvement without evidence of necrosis: Status: Acute Code(s): E08.621 - Diabetes mellitus due to underlying condition with foot ulcer; L97.505 - Non-pressure chronic ulcer of other part of unspecified foot with muscle involvement without evidence of necrosis Qualifiers: Diabetic foot ulcer location: unspecified part of foot Laterality: right Qualified Code(s): E08.621 - Diabetes mellitus due to underlying condition with foot ulcer; L97.515 - Non-pressure chronic ulcer of other part of right foot with muscle involvement without evidence of necrosis (3) Status post below knee amputation of right lower extremity: Status: Acute Code(s): Z89.511 - Acquired absence of right leg below knee (4) PAD (peripheral artery disease): Status: Suspected Code(s): I73.9 - Peripheral vascular disease, unspecified (5) Anemia: Status: Acute Code(s): D64.9 - Anemia, unspecified (6) MRSA (methicillin resistant staph aureus) culture positive: Status: Acute Code(s): Z22.322 - Carrier or suspected carrier of Methicillin resistant Staphylococcus aureus (7) Status post partial amputation of right foot: Status: Acute Code(s): Z89.431 - Acquired absence of right foot (8) History of transmetatarsal amputation of right foot: Status: Acute Code(s): Z89.431 - Acquired absence of right foot (9) Diabetic neuropathy: Status: Acute Code(s): E11.40 - Type 2 diabetes mellitus with diabetic neuropathy, unspecified (10) Coronary artery disease: Status: Acute Code(s): I25.10 - Atherosclerotic heart disease of [place] coronary artery without angina pectoris (11) Obesity (BMI 30-39.9): Status: Chronic Code(s): E66.9 - Obesity, unspecified (12) Type 2 diabetes mellitus with diabetic polyneuropathy, with long-term current use of insulin: Status: Chronic Code(s): E11.42 - Type 2 diabetes mellitus with diabetic polyneuropathy; Z79.4 - termite exterminator (current) use of insulin (13) HHD (hypertensive heart disease): Status: Chronic Code(s): I11.9 - Hypertensive heart disease without heart failure Qualifiers: Heart failure presence: without heart failure Qualified Code(s): I11.9 - Hypertensive heart disease without heart failure Meds Home Medications and Allergies Home Medications ?Medication ?Instructions ?Recorded ?Confirmed ?Type ranolazine 1,000 mg 1,000 mg PO BID 08/30/20 04/21/24 History tablet,extended release,12 hr albuterol sulfate 90 mcg/actuation 2 puff inhalation QIDP PRN 08/25/22 04/21/24 History aerosol inhaler Shortness Of Breath Or Wheezing tamsulosin 0.4 mg capsule 0.4 mg PO HS 01/10/23 04/21/24 History aspirin 81 mg chewable tablet 81 mg PO DAILY 01/24/23 04/21/24 History (Aspirin Childrens) fluticasone propionate 50 1 spray intranasal BID 01/24/23 04/21/24 History mcg/actuation nasal spray,suspension acetaminophen 500 mg tablet 500 mg PO Q4HP PRN Pain and fever 05/07/23 04/21/24 History (Acetaminophen Extra Strength) bisacodyl 10 mg rectal suppository 10 mg [place] DAILYP PRN Constipation 05/07/23 04/21/24 History (Laxative (bisacodyl)) fluticasone furoate 100 1 inh inhalation DAILY 05/07/23 04/21/24 History mcg-vilanterol 25 mcg/dose inhalation powder (Breo Ellipta) ondansetron HCl 4 mg tablet 4 mg PO Q6HP PRN nausea and 05/07/23 04/21/24 History vomiting pantoprazole 40 mg tablet,delayed 40 mg PO BID 05/07/23 04/21/24 History release quetiapine 50 mg tablet (Seroquel) 50 mg PO BID 05/07/23 04/21/24 History sennosides 8.6 mg-docusate sodium 2 tab-cap PO BID 05/07/23 04/21/24 History 50 mg tablet (Senexon-S) metformin 1,000 mg tablet 1,000 mg PO BID #180 tabs 09/10/23 04/21/24 Rx amlodipine 5 mg tablet (Norvasc) 5 mg PO DAILY #90 tabs 01/07/24 04/21/24 Rx divalproex 250 mg tablet,delayed 250 mg PO BID 01/08/24 04/21/24 History release loperamide 2 mg capsule 2 mg PO Q4HP PRN Diarrhea 01/08/24 04/21/24 History atorvastatin 80 mg tablet 80 mg PO DAILY 02/05/24 04/21/24 History ferrous sulfate 324 mg (65 mg 324 mg PO BID 10/03/24 11/26/24 History iron) tablet,delayed release multivitamin 1 tab PO DAILY 04/20/24 04/21/24 History sertraline 50 mg tablet 50 mg PO DAILY 04/20/24 04/21/24 History aspirin 81 mg tablet,delayed 81 mg PO BID 6 weeks #84 tabs 04/21/24 Rx release divalproex 250 mg tablet,delayed 250 mg PO HS 04/21/24 04/21/24 History release finasteride 5 mg tablet 5 mg PO DAILY #30 tabs 04/21/24 Rx hydrocodone 5 mg-acetaminophen 325 2 tab PO Q4HP PRN Moderate To 04/21/24 Rx mg tablet Severe Pain (4-10) 3 days #18 tabs magnesium oxide 200 mg PO DAILY 04/21/24 04/21/24 History potassium chloride 10 mEq 10 meq PO BID 04/21/24 04/21/24 History tablet,extended release New Prescriptions to Start Prescriptions: Marlo Lyon finasteride Marlo Ko hydrocodone-acetaminophen Marlo Ko Allergies Allergy/AdvReac Type Severity Reaction Status Date / Time morphine (MORPHINE) Allergy Severe I-ITCHING Verified 04/14/24 13:51 influenza virus vaccine qs Allergy Unknown Verified 04/14/24 13:51 2018- (6 mos and up) (From allergy Fluarix Quad [id number] (PF)) reaction Discharge Plan Disposition Patient Disposition: [facility] Discharge Order Discharge Orders: Discharge Order (Routine); Ordered 04/21/24 Ordered By: Marlo Ko Follow up Plan Follow up with: Conner Moses DO [Staff Physician] - 04/28/24 Prescriptions/Medication Reconciliation: New hydrocodone-acetaminophen 5-325 mg Tablet 2 tab PO Q4HP PRN (Reason: Moderate To Severe Pain (4-10)) 3 Days Qty: 18 0RF finasteride 5 mg tablet 5 mg PO DAILY Qty: 30 0RF aspirin 81 mg tablet,delayed release (DR/EC) 81 mg PO BID 42 Days Qty: 84 0RF Continued fluticasone propionate 50 mcg/actuation spray,suspension 1 spray intranasal BID Rx Instructions: administer into each nostril tamsulosin 0.4 mg capsule 0.4 mg PO HS divalproex 250 mg tablet,delayed release (DR/EC) 250 mg PO BID loperamide 2 mg capsule 2 mg PO Q4HP PRN (Reason: Diarrhea) acetaminophen [Acetaminophen Extra Strength] 500 mg tablet 500 mg PO Q4HP PRN (Reason: Pain and fever) bisacodyl [Laxative (bisacodyl)] 10 mg suppository 10 mg IL DAILYP PRN (Reason: Constipation) ondansetron HCl 4 mg tablet 4 mg PO Q6HP PRN (Reason: nausea and vomiting) fluticasone furoate-vilanterol [Breo Ellipta] 100-25 mcg/dose blister with device 1 inh inhalation DAILY pantoprazole 40 mg tablet,delayed release (DR/EC) 40 mg PO BID quetiapine [Seroquel] 50 mg tablet 50 mg PO BID sennosides-docusate sodium [Senexon-S] 8.6-50 mg tablet 2 tab-cap PO BID metformin 1,000 mg tablet 1,000 mg PO BID Qty: 180 3RF Rx Instructions: take with meals amlodipine [Norvasc] 5 mg tablet 5 mg PO DAILY Qty: 90 3RF ferrous sulfate 324 mg (65 mg iron) tablet,delayed release (DR/EC) 324 mg PO BID ranolazine 1,000 MG tablet extended release 12 hr 1,000 mg PO BID atorvastatin 80 mg tablet 80 mg PO DAILY albuterol sulfate 90 mcg/actuation Hfa Aerosol Inhaler 2 puff INHALATION QIDP PRN (Reason: Shortness Of Breath Or Wheezing) sertraline 50 mg tablet 50 mg PO DAILY multivitamin Tablet 1 tab PO DAILY magnesium oxide 200 mg magnesium Tablet 200 mg PO DAILY potassium chloride 10 mEq Tablet Extended Release 10 meq PO BID divalproex 250 mg tablet,delayed release (DR/EC) 250 mg PO HS Held aspirin [Aspirin Childrens] 81 mg tablet,chewable 81 mg PO DAILY Hold Instructions: Resume on 06/03/24. Problem Reconciliation Problems Reviewed?: Yes Patient Discharge Instructions Patient Instructions: DI for Nhhil-pbj-Dtje Amputation, DI for Surgical Site Infection Print Language: Icelandic Providers Primary Care Provider: Yonis Magaña Admit Provider: Fabián Owen Attending Provider: Fabián Owen
[2024-04-21] MEDS: DAPTOMYCIN IV (15:34)
[2024-04-21] MEDS: SODIUM CHLORIDE 0.9% IV (15:34)
[2024-04-21 15:59] VITALS: BP 134/72; PULSE 80; RESP 20; TEMP 36.6; O2SAT 99
--- NOTE | 2024-04-21 17:12 | PC.NURSE ---
Pt c/o bladder pain so bladder scan was preformed 1230 found in bladder. MD order to place [facility] cath because of urinary retention, Caude cath used due to pts BPH. Pt discharged with [facility] cath to [facility]. Report called to Adrianna at [facility].
== END 2024-04-21 16:50 | DRG 617 ==
LOC: 2ND 15:20
PROVIDERS: Orthopaedic Surgery; Admitting Provider Internal Medicine Adolescent Medicine; PCP Family Medicine; Visit Provider Internal Medicine Adolescent Medicine
PROC: 0Y6H0Z2 Detachment at Right Lower Leg, Mid, Open Approach (ICD-10-PCS; CPT 27880; principal; 2024-04-20 12:00)
DX: E11.621 Type 2 diabetes mellitus with foot ulcer (principal); L03.115 Cellulitis of right lower limb; L97.515 Non-pressure chronic ulcer of other part of right foot with muscle involvement without evidence of necrosis; I73.9 Peripheral vascular disease, unspecified; Z22.322 Carrier or suspected carrier of Methicillin resistant Staphylococcus aureus; E11.40 Type 2 diabetes mellitus with diabetic neuropathy, unspecified; I25.10 Atherosclerotic heart disease of native coronary artery without angina pectoris; E66.01 Morbid (severe) obesity due to excess calories; E11.42 Type 2 diabetes mellitus with diabetic polyneuropathy; I11.9 Hypertensive heart disease without heart failure; Z68.32 Body mass index [BMI] 32.0-32.9, adult; Z79.84 Long term (current) use of oral hypoglycemic drugs; D50.0 Iron deficiency anemia secondary to blood loss (chronic); N40.1 Benign prostatic hyperplasia with lower urinary tract symptoms; R33.8 Other retention of urine
CPT/HCPCS: 36415; 80048; 82962; 85025; 88307; 88311; 96374; 97162; 97530; C9144; J0131; J0690; J0878; J1100; J2250; J2405; J3010; J7120

== ENCOUNTER 2024-07-16 09:52 | Outpatient (CLI) | payer MEDICARE, MEDICAID, SELFPAY ==
[2024-07-16 10:18] LABS: Basophils % 0.3 % (0.1-2.0); Eosinophils # 0.4 K/mm3 (0.0-0.4); Eosinophils % 5.3 % (0.1-12.0); Hematocrit 38.4 % (42.0-52.0); Hemoglobin 12.5 g/dL (14.1-18.0); Lymphocytes % 27.5 % (10-50); Mean Corpuscular HGB Conc 32.6 g/dL (31.8-35.4); Mean Corpuscular Hemoglobin 29.8 pg (27.0-31.2); Mean Corpuscular Volume 91.6 fl (80-94); Mean Platelet Volume 11.2 fl (7.4-10.4); Monocytes # 0.5 K/mm3 (0.1-1.0); Monocytes % 6.8 % (1.7-9.3); Neutrophils # 4.4 K/mm3 (1.8-7.8); Neutrophils % 59.4 % (37.0-80.0); Platelet Count 163 K/mm3 (142-424); Red Blood Count 4.19 M/mm3 (4.60-6.20); Red Cell Distribution Width 14.2 % (11.5-17.5); White Blood Count 7.4 K/mm3 (4.8-10.8)
[2024-07-16 11:02] LABS: Erythrocyte Sedimentation Rate 22 mm/hr (0-20)
[2024-07-16 20:40] LABS: C-Reactive Protein 1.6 mg/L (0-4)
== END 2024-07-16 23:59 | disposition home or self-care (01) ==
LOC: LAB 09:54
PROVIDERS: PCP Internal Medicine; Visit Provider Physician Assistant Surgical
DX: T81.49XA Infection following a procedure, other surgical site, initial encounter (principal); D64.9 Anemia, unspecified
CPT/HCPCS: 36415; 85025; 85651; 86140

== ENCOUNTER 2024-08-17 08:27 | Outpatient (CLI) | payer MEDICARE, MEDICAID, SELFPAY ==
[2024-08-17 08:48] LABS: MANUAL DIFFERENTIAL MANUAL DIFFERENTIAL (MANUAL DIFF)
[2024-08-17 08:51] LABS: Basophils % 0.4 % (0.1-2.0); Eosinophils # 0.4 K/mm3 (0.0-0.4); Eosinophils % 4.9 % (0.1-12.0); Hematocrit 32.7 % (42.0-52.0); Hemoglobin 11.1 g/dL (14.1-18.0); Lymphocytes # 2.1 K/mm3 (0.7-4.5); Lymphocytes % 29.5 % (10-50); Mean Corpuscular HGB Conc 33.9 g/dL (31.8-35.4); Mean Corpuscular Hemoglobin 30.8 pg (27.0-31.2); Mean Corpuscular Volume 90.8 fl (80-94); Mean Platelet Volume 11.2 fl (7.4-10.4); Monocytes # 0.7 K/mm3 (0.1-1.0); Monocytes % 9.3 % (1.7-9.3); Neutrophils % 55.6 % (37.0-80.0); Platelet Count 144 K/mm3 (142-424); White Blood Count 7.2 K/mm3 (4.8-10.8)
[2024-08-17 08:57] LABS: Alanine Aminotransferase 20 U/L (12-78); Albumin/Globulin Ratio 1.6 (1.1-1.8); Alkaline Phosphatase 45 U/L (38-126); Anion Gap 13.5 mEq/L (5-15); Aspartate Amino Transferase 31 U/L (17-59); Bilirubin,Total 0.8 mg/dl (0.2-1.3); Blood Urea Nitrogen 10 mg/dl (9-20); Calcium 9.9 mg/dl (8.4-10.2); Carbon Dioxide 26 mmol/L (22.0-30.0); Chloride 100 mmol/L (98-107); Estimated Glomerular Filt Rate 97 ml/min (>60); GFR (African American) 117 ML/MIN (>60); Globulin 2.5 g/dL (1.3-3.2); Glucose 86 mg/dl (74-100); Potassium 4.5 mmoL/L (3.5-5.1); Sodium 135 mmol/L (136-145); Total Protein,Serum 6.5 g/dl (6.3-8.2)
[2024-08-17 09:03] LABS: C-Reactive Protein 0.7 mg/L (0-4)
[2024-08-17 10:12] LABS: Eosinophils % 4 % (0-3); Lymphocytes % 54 % (10-50); Monocytes % 3 % (2-9); Neutrophils % 39 % (42-76); RBC Morphology Normal; Total Cells Counted 100
[2024-08-17 10:13] LABS: Platelet Estimate Normal
[2024-08-17 10:31] LABS: Erythrocyte Sedimentation Rate 22 mm/hr (0-20)
== END 2024-08-17 23:59 | disposition home or self-care (01) ==
LOC: LAB.DROPOF 08:28
PROVIDERS: PCP Family Medicine; Visit Provider Family Medicine
DX: I10 Essential (primary) hypertension (principal); D46.4 Refractory anemia, unspecified; R79.9 Abnormal finding of blood chemistry, unspecified; Z74.09 Other reduced mobility
CPT/HCPCS: 36415; 80053; 85007; 85014; 85018; 85048; 85049; 85651; 86140

== ENCOUNTER 2024-08-24 07:30 | Outpatient (CLI) | payer MEDICARE, MEDICAID, SELFPAY ==
[2024-08-24 07:42] LABS: Basophils % 0.6 % (0.1-2.0); Eosinophils # 0.4 K/mm3 (0.0-0.4); Eosinophils % 5.9 % (0.1-12.0); Hemoglobin 11.3 g/dL (14.1-18.0); Lymphocytes # 2.4 K/mm3 (0.7-4.5); Lymphocytes % 35.2 % (10-50); Mean Corpuscular HGB Conc 34.2 g/dL (31.8-35.4); Mean Corpuscular Hemoglobin 31.7 pg (27.0-31.2); Mean Corpuscular Volume 92.4 fl (80-94); Mean Platelet Volume 10.9 fl (7.4-10.4); Monocytes # 0.7 K/mm3 (0.1-1.0); Monocytes % 9.8 % (1.7-9.3); Neutrophils # 3.2 K/mm3 (1.8-7.8); Neutrophils % 47.9 % (37.0-80.0); Platelet Count 141 K/mm3 (142-424); Red Blood Count 3.57 M/mm3 (4.60-6.20); Red Cell Distribution Width 14.1 % (11.5-17.5); White Blood Count 6.7 K/mm3 (4.8-10.8)
[2024-08-24 07:49] LABS: Chloride 102 mmol/L (98-107)
[2024-08-24 07:50] LABS: Albumin Level 4.1 g/dl (3.5-5.0); Potassium 4.5 mmoL/L (3.5-5.1); Sodium 139 mmol/L (136-145)
[2024-08-24 07:52] LABS: Alanine Aminotransferase 21 U/L (12-78); Anion Gap 13.5 mEq/L (5-15); Aspartate Amino Transferase 27 U/L (17-59); Blood Urea Nitrogen 9 mg/dl (9-20); Carbon Dioxide 28 mmol/L (22.0-30.0); Estimated Glomerular Filt Rate 97 ml/min (>60); GFR (African American) 117 ML/MIN (>60)
[2024-08-24 07:53] LABS: Albumin/Globulin Ratio 1.6 (1.1-1.8); Alkaline Phosphatase 58 U/L (38-126); Bilirubin,Total 0.7 mg/dl (0.2-1.3); Calcium 8.9 mg/dl (8.4-10.2); Globulin 2.6 g/dL (1.3-3.2); Glucose 106 mg/dl (74-100); Total Protein,Serum 6.7 g/dl (6.3-8.2)
[2024-08-24 08:00] LABS: C-Reactive Protein 0.5 mg/L (0-4)
[2024-08-24 08:06] LABS: Erythrocyte Sedimentation Rate 16 mm/hr (0-20)
== END 2024-08-24 23:59 | disposition home or self-care (01) ==
PROVIDERS: PCP Nurse Practitioner Family; Visit Provider Nurse Practitioner Family
DX: E11.9 Type 2 diabetes mellitus without complications (principal); E78.1 Pure hyperglyceridemia; Z13.220 Encounter for screening for lipoid disorders
CPT/HCPCS: 36415; 80053; 85025; 85651; 86140

== ENCOUNTER 2024-08-31 07:19 | Outpatient (CLI) | payer MEDICARE, MEDICAID, SELFPAY ==
[2024-08-31 07:31] LABS: Basophils % 0.4 % (0.1-2.0); Eosinophils # 0.4 K/mm3 (0.0-0.4); Eosinophils % 5.7 % (0.1-12.0); Hemoglobin 11.5 g/dL (14.1-18.0); Lymphocytes # 2.1 K/mm3 (0.7-4.5); Lymphocytes % 29.4 % (10-50); Mean Corpuscular HGB Conc 34.8 g/dL (31.8-35.4); Mean Corpuscular Hemoglobin 32.3 pg (27.0-31.2); Mean Corpuscular Volume 92.7 fl (80-94); Mean Platelet Volume 10.9 fl (7.4-10.4); Monocytes # 0.8 K/mm3 (0.1-1.0); Monocytes % 10.8 % (1.7-9.3); Neutrophils # 3.7 K/mm3 (1.8-7.8); Neutrophils % 53.3 % (37.0-80.0); Platelet Count 143 K/mm3 (142-424); Red Blood Count 3.56 M/mm3 (4.60-6.20)
[2024-08-31 07:37] LABS: Albumin Level 3.9 g/dl (3.5-5.0); Chloride 101 mmol/L (98-107); Potassium 4.3 mmoL/L (3.5-5.1); Sodium 138 mmol/L (136-145)
[2024-08-31 07:40] LABS: Alanine Aminotransferase 24 U/L (12-78); Albumin/Globulin Ratio 1.4 (1.1-1.8); Alkaline Phosphatase 61 U/L (38-126); Anion Gap 14.3 mEq/L (5-15); Aspartate Amino Transferase 28 U/L (17-59); Bilirubin,Total 0.6 mg/dl (0.2-1.3); Blood Urea Nitrogen 12 mg/dl (9-20); Carbon Dioxide 27 mmol/L (22.0-30.0); Estimated Glomerular Filt Rate 97 ml/min (>60); GFR (African American) 117 ML/MIN (>60); Globulin 2.8 g/dL (1.3-3.2); Glucose 118 mg/dl (74-100); Total Protein,Serum 6.7 g/dl (6.3-8.2)
[2024-08-31 07:46] LABS: C-Reactive Protein 0.4 mg/L (0-4)
[2024-08-31 10:07] LABS: Erythrocyte Sedimentation Rate 20 mm/hr (0-20)
== END 2024-08-31 23:59 | disposition home or self-care (01) ==
PROVIDERS: PCP Nurse Practitioner Family; Visit Provider Nurse Practitioner Family
DX: E11.621 Type 2 diabetes mellitus with foot ulcer (principal); E78.2 Mixed hyperlipidemia
CPT/HCPCS: 36415; 80053; 85025; 85651; 86140

== ENCOUNTER 2024-09-03 13:37 | Outpatient (CLI) | payer MEDICARE, MEDICAID, SELFPAY ==
[2024-09-03 14:07] LABS: Basophils % 0.5 % (0.1-2.0); Eosinophils # 0.4 K/mm3 (0.0-0.4); Eosinophils % 5.5 % (0.1-12.0); Hemoglobin 11.4 g/dL (14.1-18.0); Lymphocytes % 25.5 % (10-50); Mean Corpuscular HGB Conc 34.5 g/dL (31.8-35.4); Mean Corpuscular Hemoglobin 31.7 pg (27.0-31.2); Mean Corpuscular Volume 91.7 fl (80-94); Mean Platelet Volume 11.1 fl (7.4-10.4); Monocytes # 0.6 K/mm3 (0.1-1.0); Monocytes % 7.4 % (1.7-9.3); Neutrophils # 4.8 K/mm3 (1.8-7.8); Neutrophils % 60.6 % (37.0-80.0); Nucleated Red Blood Cells # 0 10^3/uL; Nucleated Red Blood Cells % 0 %; Platelet Count 155 K/mm3 (142-424); Red Cell Distribution Width 13.9 % (11.5-17.5)
[2024-09-03 15:10] LABS: C-Reactive Protein 0.3 mg/L (0-4)
[2024-09-03 15:50] LABS: Erythrocyte Sedimentation Rate 25 mm/hr (0-20)
== END 2024-09-03 23:59 | disposition home or self-care (01) ==
LOC: LAB 13:38
PROVIDERS: PCP Family Medicine; Visit Provider Physician Assistant Surgical
DX: Z89.511 Acquired absence of right leg below knee (principal); T81.49XA Infection following a procedure, other surgical site, initial encounter; E11.40 Type 2 diabetes mellitus with diabetic neuropathy, unspecified; Z79.4 Long term (current) use of insulin
CPT/HCPCS: 36415; 85025; 85651; 86140

== ENCOUNTER 2024-09-04 07:11 | Outpatient (CLI) | payer MEDICARE, MEDICAID, SELFPAY ==
[2024-09-04 10:13] LABS: Hemoglobin A1C 5.6 % (4.0-6.0)
== END 2024-09-04 23:59 | disposition home or self-care (01) ==
PROVIDERS: PCP Family Medicine; Visit Provider Family Medicine
DX: E11.42 Type 2 diabetes mellitus with diabetic polyneuropathy (principal)
CPT/HCPCS: 36415; 83036

== ENCOUNTER 2024-09-16 07:22 | Outpatient (CLI) | payer MEDICARE, MEDICAID, SELFPAY ==
[2024-09-16 07:31] LABS: Basophils % 0.4 % (0.1-2.0); Eosinophils # 0.5 Kmm3 (0.0-0.4); Eosinophils % 6.5 % (0.1-12.0); Hematocrit 32.4 % (42.0-52.0); Hemoglobin 11.3 g/dL (14.1-18.0); Lymphocytes # 2.2 K/mm3 (0.7-4.5); Lymphocytes % 32.4 % (10-50); Mean Corpuscular HGB Conc 34.9 g/dL (31.8-35.4); Mean Corpuscular Hemoglobin 32.6 pg (27.0-31.2); Mean Corpuscular Volume 93.4 fl (80-94); Mean Platelet Volume 11.2 fl (7.4-10.4); Monocytes # 0.7 K/mm3 (0.1-1.0); Monocytes % 10.2 % (1.7-9.3); Neutrophils # 3.5 K/mm3 (1.8-7.8); Neutrophils % 50.2 % (37.0-80.0); Nucleated Red Blood Cells # 0 10^3/uL; Nucleated Red Blood Cells % 0 %; Platelet Count 162 K/mm3 (142-424); Red Blood Count 3.47 M/mm3 (4.60-6.20); Red Cell Distribution Width 14.2 % (11.5-17.5); Red Cell Distribution Width-SD 48.2 fL; White Blood Count 6.9 K/mm3 (4.8-10.8)
[2024-09-16 07:52] LABS: Chloride 99 mmol/L (98-107); Potassium 4.5 mmoL/L (3.5-5.1); Sodium 135 mmol/L (136-145)
[2024-09-16 07:55] LABS: Alanine Aminotransferase 20 U/L (12-78); Albumin/Globulin Ratio 1.5 (1.1-1.8); Alkaline Phosphatase 60 U/L (38-126); Anion Gap 13.5 mEq/L (5-15); Aspartate Amino Transferase 25 U/L (17-59); Bilirubin,Total 0.8 mg/dl (0.2-1.3); Blood Urea Nitrogen 8 mg/dl (9-20); Carbon Dioxide 27 mmol/L (22.0-30.0); Estimated Glomerular Filt Rate 84 ml/min (>60); GFR (African American) 102 ML/MIN (>60); Globulin 2.7 g/dL (1.3-3.2); Total Protein,Serum 6.7 g/dl (6.3-8.2)
[2024-09-16 07:56] LABS: Calcium 9.2 mg/dl (8.4-10.2); Glucose 104 mg/dl (74-100)
[2024-09-16 08:01] LABS: C-Reactive Protein 0.5 mg/L (0-4)
[2024-09-16 08:23] LABS: Erythrocyte Sedimentation Rate 17 mm/hr (0-20)
== END 2024-09-16 23:59 | disposition home or self-care (01) ==
PROVIDERS: PCP Nurse Practitioner Family; Visit Provider Nurse Practitioner Family
DX: D53.9 Nutritional anemia, unspecified (principal); E11.621 Type 2 diabetes mellitus with foot ulcer; E11.42 Type 2 diabetes mellitus with diabetic polyneuropathy; E78.5 Hyperlipidemia, unspecified; I11.9 Hypertensive heart disease without heart failure; I25.10 Atherosclerotic heart disease of native coronary artery without angina pectoris; N17.9 Acute kidney failure, unspecified; Z79.84 Long term (current) use of oral hypoglycemic drugs; Z79.85 Long-term (current) use of injectable non-insulin antidiabetic drugs
CPT/HCPCS: 36415; 80053; 85025; 85651; 86140

== ENCOUNTER 2024-09-21 07:46 | Outpatient (CLI) | payer MEDICARE, MEDICAID, SELFPAY ==
[2024-09-21 08:04] LABS: Basophils % 0.4 % (0.1-2.0); Eosinophils # 0.5 Kmm3 (0.0-0.4); Eosinophils % 6.1 % (0.1-12.0); Hematocrit 34.8 % (42.0-52.0); Hemoglobin 11.9 g/dL (14.1-18.0); Lymphocytes # 2.1 K/mm3 (0.7-4.5); Lymphocytes % 27.2 % (10-50); Mean Corpuscular HGB Conc 34.2 g/dL (31.8-35.4); Mean Corpuscular Hemoglobin 32.1 pg (27.0-31.2); Mean Corpuscular Volume 93.8 fl (80-94); Mean Platelet Volume 11.2 fl (7.4-10.4); Monocytes # 0.7 K/mm3 (0.1-1.0); Monocytes % 9.3 % (1.7-9.3); Neutrophils # 4.4 K/mm3 (1.8-7.8); Neutrophils % 56.6 % (37.0-80.0); Nucleated Red Blood Cells # 0 10^3/uL; Nucleated Red Blood Cells % 0 %; Platelet Count 139 K/mm3 (142-424); Red Blood Count 3.71 M/mm3 (4.60-6.20); Red Cell Distribution Width-SD 47.8 fL; White Blood Count 7.8 K/mm3 (4.8-10.8)
[2024-09-21 08:22] LABS: Albumin Level 4.2 g/dl (3.5-5.0); Chloride 101 mmol/L (98-107); Potassium 4.6 mmoL/L (3.5-5.1); Sodium 139 mmol/L (136-145)
[2024-09-21 08:25] LABS: Alanine Aminotransferase 19 U/L (12-78); Albumin/Globulin Ratio 1.4 (1.1-1.8); Alkaline Phosphatase 59 U/L (38-126); Anion Gap 14.6 mEq/L (5-15); Aspartate Amino Transferase 29 U/L (17-59); Bilirubin,Total 0.7 mg/dl (0.2-1.3); Blood Urea Nitrogen 10 mg/dl (9-20); Carbon Dioxide 28 mmol/L (22.0-30.0); Estimated Glomerular Filt Rate 84 ml/min (>60); GFR (African American) 102 ML/MIN (>60); Glucose 107 mg/dl (74-100); Total Protein,Serum 7.2 g/dl (6.3-8.2)
[2024-09-21 08:31] LABS: Erythrocyte Sedimentation Rate 17 mm/hr (0-20)
[2024-09-21 08:33] LABS: C-Reactive Protein < 0.3 mg/L (0-4)
== END 2024-09-21 23:59 | disposition home or self-care (01) ==
PROVIDERS: PCP Nurse Practitioner Family; Visit Provider Nurse Practitioner Family
DX: E11.9 Type 2 diabetes mellitus without complications (principal); Z79.84 Long term (current) use of oral hypoglycemic drugs; Z79.4 Long term (current) use of insulin
CPT/HCPCS: 36415; 80053; 85025; 85651; 86140

== ENCOUNTER 2024-10-14 07:25 | Outpatient (CLI) | payer MEDICARE, MEDICAID, SELFPAY ==
[2024-10-14 07:59] LABS: Chol/HDL Ratio 2.2 (1-3.5); Cholesterol 86 mg/dl (140-200); HDL Cholesterol 40 mg/dl (40-60); Triglycerides 120 mg/dl (30-150); VLDL Cholesterol 24 mg/dL (0-40)
[2024-10-14 08:10] LABS: Direct LDL Cholesterol 32.61 mg/dL (100-129)
== END 2024-10-14 23:59 | disposition home or self-care (01) ==
PROVIDERS: PCP Nurse Practitioner Family; Visit Provider Nurse Practitioner Family
DX: E78.5 Hyperlipidemia, unspecified (principal)
CPT/HCPCS: 36415; 80061

== ENCOUNTER 2024-12-28 07:20 | Outpatient (CLI) | payer MEDICARE, MEDICAID, SELFPAY ==
--- OUTSIDE RECORDS SUMMARY | 2024-12-28 07:22 | XMS_ITS | Clinical Summary ---
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 Name Role Phone Zachary LINARES, Junior Rhodes [ ] Conditions or Problems Problem Name Problem Code Onset Date Status Entry Date Provider Comment Standard Description Annotate MSSA A49.01 (ICD-10-CM ) 11/17 Active 11/17 Nancy Conde Methicillin susceptible Staphylococcus aureus infection, unspecified site Lactic acidosis 15330813 (SNOMED CT) 11/17 Active 11/17 Nancy Conde Lactic acidosis Hypertension 83807336 (SNOMED CT) 11/17 Active 11/17 Nancy Conde Hypertensive disorder GERD 219299278 (SNOMED CT) 11/17 Active 11/17 Nancy Conde Gastroesophageal reflux disease Cellulitis, foot, left 877683707 (SNOMED CT) 11/17 Active 11/17 Nancy Conde Cellulitis of foot Osteomyelitis , acute, ankle/foot 280928480 (SNOMED CT) 11/17 Active 11/17 Nancy Conde Acute osteomyelitis of ankle and/or foot Other bone involvement in diseases classified elsewhere 99644761 (SNOMED CT) 11/17 Active 11/17 Nancy Conde Disorder of bone Diabetic foot ulcer 510715605 (SNOMED CT) 11/17 Active 11/17 Nancy Conde Diabetic foot ulcer Medications Medication Instructions Start Date Stop Date Generic Name [facility] Provider KEFLEX 500 MG ORAL CAPSULE CEPHALEXIN 65384008223 Zafar P LORTAB 7.5-325 MG ORAL TABLET HYDROCODONE-ACET A MINOPHEN 55733322611 Zafar P PX ENTERIC ASPIRIN 81 MG ORAL TABLET DELAYED RELEASE ASPIRIN 65132443176 Zafar P CULTURELLE CAPS LACTOBACI LLUS RHAMNOSUS (GG) 05790128443 Zafar P SIMVASTATIN 40 MG TABS SIMVASTATIN 38151376840 Zafar P RANITIDINE HCL 150 MG ORAL TABLET RANITIDINE HCL 90631579987 Zafar P NITROSTAT 0.4 MG SUBL NITROGLYCERIN 41508694694 Zafar P METOPROLOL SUCCINATE ER 50 MG [id number] METOPROLOL SUCCINATE 91513646889 Zafar P METFORMIN HCL 1000 MG TABS METFORMIN HCL 06391163352 Zafar P GLYBURIDE 2.5 MG TABS GLYBURIDE 42699121118 Zafar P CELEXA 20 MG TABS CITALOPRAM HYDROBROMIDE 08534396412 Zafar P Medications Administered No information available. Allergies, Adverse Reactions, Alerts Allergy Name Reaction Description Start Date Severity Statu s Provider MORPHINE Moderate Active Zafar P Results Date Name Value Unit Range Flag Description Clinical Lists Update: Prelo ad SMOK STATUS former smoker Tob acco smoking status Plan of Care No information available. Procedures No information available. Vital Signs No information available. Immunizations No information available. Advance Directives No information available.
--- OUTSIDE RECORDS SUMMARY | 2024-12-28 07:22 | XMS_ITS ---
Author Organization [facility] Care Team Providers Care Sales Representatives Name Role Phone Junior Alas Unavailable Unavailable Allergies and adverse reactions Code CodeSystem Substance Reaction Severity StartDate Concern Status 7052 RXNORM Morphine Anaphylaxis (co de- 25213554, SNOMED CT) Severe 02/21/2019 active Influenza Vaccines Unknown 09/02/2020 active Care Team Name Role Address Phone Organization Dates Junior Alas PCP [address] [place] [address], [place], [address], [place] (Office): : [facility] 09/02/2020 - 03/15/2021 Goals Section Goals Description Status Target Date Mayo will be continent at all times - through the review date. Active 05/02/2021 Mayo will demonstrate the appropriate use of adaptive device(s) to increase ability in his ADL's and mobility.( - through the review date. Device(s):wheelchair Active 05/02/20 21 Mayo will remain free of complications related to immobility, including contractures, thrombus formation, skin-breakdown, fall related injury - through the next review date. Active 05/02/2021 Mayo will be able to verb xenia/communicate an understanding of the discharge plan and describe the desired outcome - by the review date. Active 05/02/2021 Mayo will be free from an y s/sx of hyperglycemia - through the review date. Active 05/02/2021 Mayo will be free from an y s/sx of hypoglycemia - through the review date. Active 05/02/2021 Mayo will be free from di scomfort or adverse reactions related to anticoagulant use - through the review date. Active 05/02/2021 Mayo will be free from s/ sx of complications of cardiac problems - through the review date. Active 05/02/2021 Mayo will be free of any discomfort or adverse side effects of diuretic therapy - through the review date. Active 05/02/2021 Mayo will be free of fall s - through the review date. Active 05/02/2021 Mayo will demonstrate the appropriate use of adaptive device(s) to increase mobility: - through the review date. Device: - front wheeled walker - wheelchair Active 05/02/2021 Mayo will have an underst anding CAD,PVD,HTN,HLD AEB: Mayo will be able to verbalize the importance of compliance with treatment - through the review date. Active 05/02/2021 Mayo will have no complic ations resulting from the cellulitis - through the review date. Mayo's surgical site and L foot will show s/sx of healing by next review date. Active 05/02/2021 Mayo will have no s/sx of complications relate to fluid overload - through the review date. Active 05/02/2021 Maoy will maintain adequa te nutritional status as evidenced by: - maintaining weight within - s/sx of wound healing -through review date. : Goal is slow gradual weight loss, 1-2#/month, closer to IBWR. Active 05/02/2021 Mayo will not exhibit s/s x of COVID-19, - through next care review. - Mayo will not show a decline in psychosocial well-being or experience adverse effects through next care review. Active 05/02/2021 Mayo will voice a level o f comfort that is relieved and/or tolerable - through the review date. Active 05/02/2021 Resident and Family's wishes will be honored. Ac tive 05/02/2021 Immunizations Immunization Status Vaccine Details Vaccine Code CodeSystem Date Notes Influenza completed Influenza, high-dose, split virus, quadrivalent, injectable, preservative free lotNumber: [id number] expiry: 10/18/2021 Mfg: Afluria Given 0.5 ml Right Deltoid intramuscularly 197 CVX created date: 02/25/2021 consent date: 02/25/2021 administer ed date: 02/24/2021 Influenza completed Influenza, high-dose, split virus, quadrivalent, injectable, preservative free lotNumber: [id number] expiry: 10/03/2019 Mfg: Afluria Given 0.5 ml Right Forearm intramuscularly 197 CVX created date: 03/09/2019 consent date: 03/09/2019 administer ed date: 02/26/2019 TB 1 Step Mantoux (PPD) completed tuberculin skin test; unspecified formulation lotNumber: [id number] expiry: 02/12/2022 Mfg: Sandfi pasteur Given 0.1 ml Right Forearm intradermally 98 CVX created date: 09/02/2020 consent date: 09/02/2020 administer ed date: 09/02/2020 read 09/04/20, negative TB 1 Step Mantoux (PPD) completed tuberculin skin test; unspecified formulation lotNumber: [id number] expiry: 10/15/2020 Mfg: sanfoi past unli Given 0.1 ml Right Forearm intradermally 98 CVX created date: 03/09/2019 consent date: 03/09/2019 administer ed date: 02/21/2019 TB 2 Step Mantoux Skin Test completed tuberculin skin test; unspecified formulation lotNumber: [id number] expiry: 02/12/2022 Mfg: sanfoi past unli Given 0.1 ml Right Forearm intradermally Step 1 of Multi-step 98 CVX created date: 09/09/2020 consent date: 09/09/2020 administer ed date: 09/09/2020 read 09/11/20, negative TB 2 Step Mantoux Skin Test completed tuberculin skin test; unspecified formulation lotNumber: [id number] expiry: 10/15/2020 Mfg: sanofi pasteur Given 0.1 ml Right Forearm intradermally Step 1 of Multi-step 98 CVX created date: 03/01/2019 consent date: 03/01/2019 administer ed date: 03/01/2019 Hepatitis A completed hepatitis A vaccine, adult dosage Given 0.1 ml Right Deltoid intramuscularly 52 CVX created date: 09/08/2020 administer ed date: 04/11/2018 was given at the hospital 1st dose Pfizer-BioNTech COVID-19 Vaccine completed SARS-COV-2 (COVID-19) vaccine, mRNA, spike protein, LNP, preservative free, 30 mcg/0.3mL dose 208 CVX created date: 09/02/2020 administer ed date: 06/04/2020 2nd dose Pfizer-BioNTech COVID-19 Vaccine completed SARS-COV-2 (COVID-19) vaccine, mRNA, spike protein, LNP, preservative free, 30 mcg/0.3mL dose 208 CVX created date: 09/02/2020 administer ed date: 06/25/2020 Mental Status Section Date Assessment Total Score Description 03/15/2021 BIMS 15 cognitively int act CAM 2 Delirium indica scot PHQ-9 02 minimal depress ion 01/19/2021 BIMS 15 cognitively int act CAM 2 Delirium indica scot PHQ-9 02 minimal depress ion Problems Problem # Description Date of onset Resolved Date Code CodeSystem Concern Status 1 OTHER DENTOFACIAL ANOMALIES [address] active 2 COVID-[address] active 3 OTHER SPECIFIED DEPRESSIVE EPISODES [address] active 4 TYPE 2 DIABETES MELLITUS WITH DIABETIC POLYNEUROPATHY [address] active 5 ACQUIRED ABSENCE OF OTHER LEFT TOE(S) [address] active 6 ATHEROSCLEROTIC 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 PECTORIS [address] active 7 CELLULITIS OF LEFT LOWER LIMB [address] active 8 CHRONIC KIDNEY DISEASE, UNSPECIFIED [address] active 9 ELEVATED ERYTHROCYTE SEDIMENTATION RATE [address] active 10 ESSENTIAL (PRIMARY) HYPERTENSION [address] active 11 GASTRO-ESOPHAGEAL REFLUX DISEASE WITHOUT ESOPHAGITIS [address] active 12 HYPERLIPIDEMIA, UNSPECIFIED [address] active 13 METHICILLIN RESISTANT STAPHYLOCOCCUS AUREUS INFECTION THE CAUSE OF DISEASES CLASSIFIED ELSEWHERE [address] active 14 MORBID (SEVERE) OBESITY DUE TO EXCESS CALORIES [address] active 15 MUSCLE WEAKNESS (GENERALIZED) [address] active 16 NON-PRESSURE CHRONIC ULCER OF OTHER PART OF LEFT FOOT WITH FAT LAYER EXPOSED [address] active 17 OTHER ABNORMALITIES OF GAIT AND MOBILITY [address] active 18 OTHER CHRONIC OSTEOMYELITIS, LEFT ANKLE AND FOOT [address] active 19 PATIENT'S NONCOMPLIANCE WITH OTHER MEDICAL TREATMENT AND REGIMEN [address] active 20 PERIPHERAL VASCULAR DISEASE, UNSPECIFIED [address] active 21 PERSONAL HISTORY OF TRANSIENT ISCHEMIC ATTACK (TIA), AND CEREBRAL INFARCTION WITHOUT RESIDUAL DEFICITS [address] active 22 STREPTOCOCCAL INFECTION, UNSPECIFIED SITE [address] active 23 TYPE 2 DIABETES MELLITUS WITH DIABETIC NEUROPATHY, UNSPECIFIED 021 09/05/[address] completed 24 TYPE 2 DIABETES MELLITUS WITH FOOT ULCER [address] active 25 TYPE 2 DIABETES MELLITUS WITH OTHER SKIN COMPLICATIONS [address] active 26 UNSPECIFIED ASTHMA, UNCOMPLICATED [address] active 27 UNSPECIFIED FALL, SEQUELA [address] active 28 UNSTEADINESS ON FEET 019 09/02/[address] completed 29 HYPOCALCEMIA 019 09/02/[address] completed 30 ACQUIRED ABSENCE OF OTHER TOE(S), UNSPECIFIED SIDE 019 09/02/[address] completed 31 ATHEROSCLEROTIC 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 PECTORIS 019 09/02/[address] completed 32 BACTEREMIA 019 09/02/[address] completed 33 CELLULITIS OF LEFT LOWER LIMB 019 09/02/[address] completed 34 DISORDER OF KIDNEY AND URETER, UNSPECIFIED 019 09/02/[address] completed 35 ESSENTIAL (PRIMARY) HYPERTENSION 019 09/02/[address] completed 36 HEART FAILURE, UNSPECIFIED 019 02/21/[address] completed 37 HYPERLIPIDEMIA, UNSPECIFIED 019 09/02/[address] completed 38 HYPERTENSIVE HEART DISEASE WITHOUT HEART FAILURE 09/02/[address] completed 39 HYPO-OSMOLALITY AND HYPONATREMIA 09/02/[address] completed 40 MAJOR DEPRESSIVE DISORDER, SINGLE EPISODE, UNSPECIFIED 09/02/[address] completed 41 MUSCLE WEAKNESS (GENERALIZED) 019 09/02/[address] completed 42 OBESITY, UNSPECIFIED 019 09/02/[address] completed 43 OSTEOMYELITIS, UNSPECIFIED 05/02/[address] completed 44 PERSONAL HISTORY OF DIABETIC FOOT ULCER 09/02/[address] completed 45 TYPE 1 DIABETES MELLITUS WITH OTHER SPECIFIED COMPLICATION 09/02/[address] completed 46 TYPE 2 DIABETES MELLITUS WITH DIABETIC NEUROPATHY, UNSPECIFIED 019 09/02/[address] completed 47 TYPE 2 DIABETES MELLITUS WITH FOOT ULCER 019 09/02/[address] completed 48 TYPE 2 DIABETES MELLITUS WITH OTHER SKIN COMPLICATIONS 019 09/02/[address] completed 49 TYPE 2 DIABETES MELLITUS WITHOUT COMPLICATIONS 019 09/02/[address] completed Reason for Referral No Reasons for Referral Entered Social History Social History Observation Description Start Date End Date Code Code System Current Smoking Status Tobacco smoking consumption unknown 532824976 SNOMED CT Sex Assigned At Male 1960 22062-6 [facility] Gender Identity Vital Signs Code Code System Vitals Name Values and Units Timing Information 8310-5 [facility] Body Temperature Value=98.1 Units= F 03/15/2021 03648-2 [facility] O2 % BldC Oximetry Value=98.0 Units= % 03/15/2021 05137-2 [facility] Pain Level Value=0.0 03/15/2021 2339-0 [facility] Blood Sugar Siuja=084.0 Units=mg/dL 03/15/2021 9279-1 [facility] Respiratory Rate Value=18.0 Units=/m in 03/12/2021 8462-4 [facility] Blood Pressure-Diastolic Value=59 Un its=mmHg 03/12/2021 8480-6 [facility] Blood Pressure-Systolic Ehite=521 Un its=mmHg 03/12/2021 8867-4 [facility] Heart rate Value=65.0 Units=/min 81867-2 [facility] Weight Xjrzl=124.8 Units=Lbs 05/2020 8302-2 [facility] Height Value=66.0 Units=Inches 09/02/2020
--- OUTSIDE RECORDS SUMMARY | 2024-12-28 07:22 | XMS_ITS | Clinical Summary ---
Author Organization [facility] Address [address] [place] [address] Care Team Providers Care Senior Supplier Quality Engineer Name Role Phone Junior Alas MD Primary Care Provider + [phone] Allergies Active Allergy Reactions Criticality Noted Date [...] without coma 07/27/2022 Overview (07/31/2022): NSGY consulted [facility] reviewed; appears meningioma present can follow [...] complicate mobility Coronary artery disease invo lving [place] coronary artery of [place] heart without angina pectoris 06/13/2022 Overview (07/31/2022): [...] 06/13/2022 07/28/2022 Normocytic anemia 06/13/2022 07/28/2022 Immunizations Immunization Administration Dates Next Due Hep A, Adult [...] drink first t kaykay in the morning (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-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 DESIGN 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) to steady your nerves or to [...] 67 08/02/2022 7:35 AM EST Temperature 37.1 C (98.8 F) 08/02/2022 7:35 AM EST Respiratory Rate 16 08/02/2022 7:35 AM EST [...] Screening 1960 [facility]-Medicare Annual Wellness (AWV) 1960 [facility]-/Child/Adol SDOH Screenings 1960 [facility]-Obesity Intervention 01/28/1964 Diabetes: Dental Exam 01/28/1968 [facility]- SDOH Screenings 01/28/1976 [facility]-Adult SDOH Screenings 01/28/1976 [facility]-Pneumococcal Vaccine: 50+ Years (1 of 2 - PCV) 1977 [facility]-DTaP,Tdap,and Td Vaccines (1 - Tdap) 11/15/1998 11/14/1998 CT Colonography 2003 Colonoscopy 2003 FIT-DNA 2003 FIT 2003 FOBT 2003 Sigmoidoscopy 2003 [facility]-Colorectal Cancer Screening 2003 [facility]-Zoster Vaccines (1 of 2) 01/28/2008 [facility]-RSV Vaccine: 60+ Years or (1 - Risk 60-74 years 1-dose series) 2018 [facility]-Diabetes: Hemoglobin A1C 12/11/2022, 05/14/2016, 01/11/2016, Additional history exists [id number] Vaccine ( season) 2024 03/27/2021, 06/25/2020, 06/04/2020 [facility]-Influenza Vaccine (#1) 2025 03/28/2020 [facility]-Hepatitis A Vaccines Aged Out 04/11/2018 No longer eligible based on patient's age to complete this topic [facility]-Hepatitis C Screening Completed 07/27/2022 HPV Vaccines Aged Out No longer eligi ble based on patient's age to complete this topic [facility]-HIB Vaccines Aged Out No longer e [...] Antibody Negative Negative 07/27/2022 5:44 PM EST [facility] Blood Venous blood specimen / Unknown Venipuncture / Unknown 07/27/2022 3:50 PM EST 07/27/2022 5:04 PM EST Carmelo Dunn MD LAB BLOOD ORDERABLES Final Result Performing Organization Address City/State/[facility] Co de Phone Number [facility] [address] [place] [address] * (ABNORMAL) Hemoglobin A1c (06/13/2022 5:18 AM EST) Hemoglobin A1c 6.2(H) <5.7 % 06/13/2022 10:13 AM EST [facility] Blood Venous blood specimen / Unknown Venipuncture / Unknown 06/13/2022 5:18 AM EST 06/13/2022 5:21 AM EST Narrative [facility] - 06/13/2022 10:13 AM EST HA1C Interpretive Data: Diagnosis of Diabetes: Diabetic > or = 6.5% Pre-diabetic 5.7 to 6.4% Non-diabetic < or = 5.6% Glycemic Targets for Type I and Type II Diabetics: Non- Adults <7.0% Adults <6.0% Children and Adolescents <7.5% Source: [place] [employer]. Standards of medical care in diabetes,2017. Diabetes Care.2017:40 (suppl 1):S1-S135. HbA1c assay performed by an ion-exchange chromatography method that is certified traceable to the DCCT. Blanca Murdock SAMPLE SHOE INSPECTOR AND REWORKER LAB BLOOD ORDERABLES Final Result [facility] [address] [place] [address] from Last 3 Months or Most Recently Relevant to Health Maintenance Insurance MEDICARE Advance Directives * Full Code (Latest Code Status on File) Date Activated Date Inactivated Comments 06/13/2022 12:41 AM 06/18/2022 7:55 PM Question Answer Comments Patient has decision-making capacity? Yes Care Teams Senior Supplier Quality Engineer Relationship Specialty Start Date End Date Junior Alas MD [address] [place] [address] PCP - General 10/07/20
--- OUTSIDE RECORDS SUMMARY | 2024-12-28 07:22 | XMS_ITS | Clinical Summary ---
Author Organization [facility] Address [address] [place] [address] Phone Care Team Providers Care Asphalt Heater Tender Name Role Phone Unavailable Primary Care Provider [...] Medical History Medical History Date Comments Asthma [place] (myocardial infarction) (HCC) CAD (coronary artery disease) [...] Date Last Done Comments Wellness Exam Medicare 1963 Hepatitis C Screening 01/28/1976 DTaP/TDaP/Td (1 - Tdap) 1977 Pneumococcal Vaccine 50+ (1 of 2 - PCV) 1977 Cologuard 2003 Colon Cancer Screening 2003 Colonoscopy 2003 FIT 2003 Sigmoidoscopy 2003 Virtual Colonography 2003 Zoster (1 of 2) 01/28/2008 AAA Screening 2023 COVID-19 Vaccine ( - 2023-2 5 season) 2024 Influenza Vaccine (#1) 2025 Hepatitis B Vaccine Aged Out No longe r eligible based on patient's age to complete this topic Meningococcal B Vaccine Aged Out No l onger eligible based on patient's age to complete this topic Insurance MEDICARE [place] PART A AND B MEDICAID [place] [facility]
[2024-12-28 07:30] LABS: Hematocrit 32.8 % (42.0-52.0); Hemoglobin 11.4 g/dL (14.1-18.0); Immature Granulocytes % 0.6 %; Mean Corpuscular HGB Conc 34.8 g/dL (31.8-35.4); Mean Corpuscular Hemoglobin 32.7 pg (27.0-31.2); Mean Corpuscular Volume 94.0 fl (80-94); Nucleated Red Blood Cells % 0 %; Platelet Count 137 K/mm3 (142-424); Red Blood Count 3.49 M/mm3 (4.60-6.20); Red Cell Distribution Width-SD 44.6 fL; White Blood Count 7.2 K/mm3 (4.8-10.8)
[2024-12-28 07:49] LABS: Albumin Level 3.4 g/dl (3.5-5.0); Chloride 97 mmol/L (98-107); Potassium 4.0 mmoL/L (3.5-5.1); Sodium 131 mmol/L (136-145)
[2024-12-28 07:51] LABS: Alanine Aminotransferase 19 U/L (12-78); Anion Gap 9.0 mEq/L (5-15); Aspartate Amino Transferase 29 U/L (17-59); Blood Urea Nitrogen 7 mg/dl (9-20); Carbon Dioxide 29 mmol/L (22.0-30.0); Creatinine,Serum 0.60 mg/dl (0.66-1.25); Estimated Glomerular Filt Rate 135 ml/min (>60); GFR (African American) 163 ML/MIN (>60)
[2024-12-28 07:52] LABS: Albumin/Globulin Ratio 1.0 (1.1-1.8); Alkaline Phosphatase 74 U/L (38-126); Bilirubin,Total 0.4 mg/dl (0.2-1.3); Calcium 9.3 mg/dl (8.4-10.2); Cholesterol 117 mg/dl (140-200); Globulin 3.5 g/dL (1.3-3.2); Glucose 127 mg/dl (74-100); HDL Cholesterol 41 mg/dl (40-60); Total Protein,Serum 6.9 g/dl (6.3-8.2); Triglycerides 138 mg/dl (30-150)
[2024-12-28 14:18] LABS: Hemoglobin A1C 5.7 % (4.0-6.0)
== END 2024-12-28 23:59 | disposition home or self-care (01) ==
PROVIDERS: PCP Family Medicine; Visit Provider Family Medicine
DX: E11.9 Type 2 diabetes mellitus without complications (principal)
CPT/HCPCS: 36415; 80053; 80061; 83036; 85025

== ENCOUNTER 2025-02-19 08:00 | Outpatient (CLI) | payer MEDICARE, MEDICAID, SELFPAY ==
--- OUTSIDE RECORDS SUMMARY | 2025-02-19 08:32 | XMS_ITS | Clinical Summary ---
Author Organization [facility] Address [address] [place] [address] Phone Care Team Providers Care Egg Buyer Name Role Phone Zachary LINARES, Junior Rhodes [phone] [ ] Conditions or Problems Problem Name Problem Code Onset Date Status Entry Date Provider Comment Standard Description Annotate MSSA A49.01 (ICD-10-CM ) 11/17 Active 11/17 Nancy Conde Methicillin susceptible Staphylococcus aureus infection, unspecified site Lactic acidosis 32638792 (SNOMED CT) 11/17 Active 11/17 Nancy Conde Lactic acidosis Hypertension 31119235 (SNOMED CT) 11/17 Active 11/17 Nancy Conde Hypertensive disorder GERD 837697298 (SNOMED CT) 11/17 Active 11/17 Nancy Conde Gastroesophageal reflux disease Cellulitis, foot, left 919540747 (SNOMED CT) 11/17 Active 11/17 Nancy Conde Cellulitis of foot Osteomyelitis , acute, ankle/foot 755486075 (SNOMED CT) 11/17 Active 11/17 Nancy Conde Acute osteomyelitis of ankle and/or foot Other bone involvement in diseases classified elsewhere 81318639 (SNOMED CT) 11/17 Active 11/17 Nancy Conde Disorder of bone Diabetic foot ulcer 659086433 (SNOMED CT) 11/17 Active 11/17 Nancy Conde Diabetic foot ulcer Medications Medication Instructions Start Date Stop Date Generic Name [facility] Provider KEFLEX 500 MG ORAL CAPSULE CEPHALEXIN [id number] Zafar P LORTAB 7.5-325 MG ORAL TABLET HYDROCODONE-ACET A MINOPHEN 63956464636 Zafar P PX ENTERIC ASPIRIN 81 MG ORAL TABLET DELAYED RELEASE ASPIRIN 19407912688 Zafar P CULTURELLE CAPS LACTOBACI LLUS RHAMNOSUS (GG) 06092386494 Zafar P SIMVASTATIN 40 MG TABS SIMVASTATIN 12323617098 Zafar P RANITIDINE HCL 150 MG ORAL TABLET RANITIDINE HCL 57992281272 Zafar P NITROSTAT 0.4 MG SUBL NITROGLYCERIN 10929304309 Zafar P METOPROLOL SUCCINATE ER 50 MG [id number] METOPROLOL SUCCINATE 75185395396 Zafar P METFORMIN HCL 1000 MG TABS METFORMIN HCL 01795532945 Zafar P GLYBURIDE 2.5 MG TABS GLYBURIDE 32151777124 Zafar P CELEXA 20 MG TABS CITALOPRAM HYDROBROMIDE 30245447051 Zafar P Medications Administered No information available. [...]
--- OUTSIDE RECORDS SUMMARY | 2025-02-19 08:33 | XMS_ITS | Clinical Summary ---
Author Organization [facility] Address [address] [place] [address] Care Team Providers Care Channel Opener Outsoles Name Role Phone Junior Alas MD Primary Care Provider + [phone] Allergies Active Allergy Reactions Criticality Noted Date [...] without coma 07/27/2022 Overview (07/31/2022): NSGY consulted [facility] reviewed; appears meningioma present can follow [...] complicate mobility Coronary artery disease invo lving [place] coronary artery of [place] heart without angina pectoris 06/13/2022 Overview (07/31/2022): [...] drink first t kaykay in the morning (EYE-ENTRY LEVEL INSTALLATION TECHNICIAN) to steady your nerves or to get [...] [facility]-Infant/Child/Adol SDOH Screenings 1960 [facility]-Obesity Intervention 01/28/1964 Diabetes: [...] A1C 12/11/2022, 05/14/2016, 01/11/2016, Additional history exists [id number] Vaccine (2024- season) 2025 03/27/2021, 06/25/2020, 06/04/2020 [facility]-Influenza Vaccine (#1) 2025 [...] Co de Phone Number [facility] [address] [place] [address] * (ABNORMAL) Hemoglobin A1c (06/13/2022 5:18 AM EST) Hemoglobin A1c 6.2(H) <5.7 % 06/13/2022 10:13 AM EST [facility] Blood Venous blood specimen / Unknown [...] Adults <6.0% Children and Adolescents <7.5% Source: [place] [employer]. Standards of medical care in diabetes,2017. Diabetes Care.2017:40 (suppl 1):S1-S135. HbA1c assay performed by an ion-exchange chromatography method that is certified traceable to the DCCT. Blanca Murdock RESIDENT PHYSICIAN LAB BLOOD ORDERABLES Final Result [facility] [address] [place] [address] from Last 3 Months or Most Recently Relevant to Health Maintenance Insurance MEDICARE Advance Directives * Full Code (Latest Code Status on File) Date Activated Date Inactivated Comments 06/13/2022 12:41 AM 06/18/2022 7:55 PM Question Answer Comments Patient has decision-making capacity? Yes Care Teams Channel Opener Outsoles Relationship Specialty Start Date End Date Junior Alas MD [address] [place] [address] PCP - General 10/07/20
--- OUTSIDE RECORDS SUMMARY | 2025-02-19 08:33 | XMS_ITS | Clinical Summary ---
Author Organization [facility] Address [address] [place] [address] Phone Care Team Providers Care Easter Bunny Name Role Phone Unavailable Primary Care Provider [...] Medical History Medical History Date Comments Asthma [place] (myocardial infarction) (HCC) CAD (coronary artery disease) [...] 2) 01/28/2008 AAA Screening 2023 COVID-19 Vaccine (1 - 2023-2 5 season) 2025 Influenza Vaccine (#1) 2025 Hepatitis B Vaccine Aged Out No longe r eligible based on patient's age to complete this topic Meningococcal B Vaccine Aged Out No l onger eligible based on patient's age to complete this topic Insurance MEDICARE [place] PART A AND B MEDICAID [id number]
[2025-02-19 09:15] LABS: Valproic Acid, (Depakene) 22.1 ug/ml (50-100)
== END 2025-02-19 23:59 | disposition home or self-care (01) ==
LOC: LAB.DROPOF 08:00
PROVIDERS: PCP Nurse Practitioner Family; Visit Provider Nurse Practitioner Family
DX: Z79.899 Other long term (current) drug therapy (principal)
CPT/HCPCS: 36415; 80164

== ENCOUNTER 2025-03-17 08:44 | Outpatient (CLI) | payer MEDICARE, MEDICAID, SELFPAY ==
[2025-03-17 08:53] LABS: Hematocrit 29.0 % (42.0-52.0); Hemoglobin 10.1 g/dL (14.1-18.0); Immature Granulocytes % 0.4 %; Mean Corpuscular HGB Conc 34.8 g/dL (31.8-35.4); Mean Corpuscular Hemoglobin 32.1 pg (27.0-31.2); Mean Corpuscular Volume 92.1 fl (80-94); Nucleated Red Blood Cells % 0 %; Platelet Count 177 K/mm3 (142-424); Red Blood Count 3.15 M/mm3 (4.60-6.20); Red Cell Distribution Width-SD 41.2 fL; White Blood Count 12.0 K/mm3 (4.8-10.8)
--- OUTSIDE RECORDS SUMMARY | 2025-03-17 08:59 | XMS_ITS | Clinical Summary ---
Author Organization [facility] Address [address] [facility] [address] [place] [address] Phone Care Team Providers Care Well Logger Name Role Phone Zachary LINARES, Junior Rhodes [ ] Conditions or Problems Problem Name Problem Code Onset Date Status Entry Date Provider Comment Standard Description Annotate MSSA A49.01 (ICD-10-CM ) 11/17 Active 11/17 Nancy Conde Methicillin susceptible Staphylococcus aureus infection, unspecified site Lactic acidosis 73281349 (SNOMED CT) 11/17 Active 11/17 Nancy Conde Lactic acidosis Hypertension 60778619 (SNOMED CT) 11/17 Active 11/17 Nancy Conde Hypertensive disorder GERD 027077288 (SNOMED CT) 11/17 Active 11/17 Nancy Conde Gastroesophageal reflux disease Cellulitis, foot, left 625243074 (SNOMED CT) 11/17 Active 11/17 Nancy Conde Cellulitis of foot Osteomyelitis , acute, ankle/foot 481657262 (SNOMED CT) 11/17 Active 11/17 Nancy Conde Acute osteomyelitis of ankle and/or foot Other bone involvement in diseases classified elsewhere 07659137 (SNOMED CT) 11/17 Active 11/17 Nancy Conde Disorder of bone Diabetic foot ulcer 082787067 (SNOMED CT) 11/17 Active 11/17 Nancy Conde Diabetic foot ulcer Medications Medication Instructions Start Date Stop Date Generic Name [facility][NOTE 2] Provider KEFLEX 500 MG ORAL CAPSULE CEPHALEXIN 79807884947 Zafar P LORTAB 7.5-325 MG ORAL TABLET HYDROCODONE-ACET A MINOPHEN 92442451702 Zafar P PX ENTERIC ASPIRIN 81 MG ORAL TABLET DELAYED RELEASE ASPIRIN 36703794347 Zafar P CULTURELLE CAPS LACTOBACI LLUS RHAMNOSUS (GG) 91892752215 Zafar P SIMVASTATIN 40 MG TABS SIMVASTATIN 31078236441 Zafar P RANITIDINE HCL 150 MG ORAL TABLET RANITIDINE HCL 52040175129 Zafar P NITROSTAT 0.4 MG SUBL NITROGLYCERIN 20776266354 Zafar P METOPROLOL SUCCINATE ER 50 MG [id number] METOPROLOL SUCCINATE 88414286998 Zafar P METFORMIN HCL 1000 MG TABS METFORMIN HCL 63760065947 Zafar P GLYBURIDE 2.5 MG TABS GLYBURIDE 31527267565 Zafar P CELEXA 20 MG TABS CITALOPRAM HYDROBROMIDE 98863979083 Zafar P Medications Administered No information available. [...]
--- OUTSIDE RECORDS SUMMARY | 2025-03-17 09:00 | XMS_ITS | Clinical Summary ---
Author Organization Healthcare Address [address] [place] [address] Care Team Providers Care Pest Control Worker Helper Name Role Phone Junior Alas MD Primary Care Provider + [phone] Allergies Active Allergy Reactions Criticality Noted Date [...] without coma 07/27/2022 Overview (07/31/2022): NSGY consulted [facility] reviewed; appears meningioma present can follow up [...] complicate mobility Coronary artery disease invo lving nome coronary artery of nome heart without angina pectoris 06/13/2022 Overview (07/31/2022): [...] drink first t kaykay in the morning (EYE-END USER SUPPORT SPECIALIST) to steady your nerves or to [...] A1C 12/11/2022, 05/14/2016, 01/11/2016, Additional history exists [id number] Vaccine (2024- season) 2025 03/27/2021, 06/25/2020, 06/04/2020 [...] BLOOD ORDERABLES Final Result Performing Organization Address City/State/[facility] Co de Phone Number [facility] [address] [place] [address] * (ABNORMAL) Hemoglobin A1c (06/13/2022 5:18 AM EST) Hemoglobin A1c 6.2(H) <5.7 % 06/13/2022 10:13 AM EST [facility] Blood Venous blood specimen / Unknown [...] Adults <6.0% Children and Adolescents <7.5% Source: [place] Diabetes Association. Standards of medical care in diabetes,2017. Diabetes Care.2017:40 (suppl 1):S1-S135. HbA1c assay performed by an ion-exchange chromatography method that is certified traceable to the DCCT. Blanca Murdock MUNICIPAL SERVICES MANAGER LAB BLOOD ORDERABLES Final Result [facility] [address] [place] [address] from Last 3 Months or Most Recently Relevant to Health Maintenance Insurance MEDICARE Advance Directives * Full Code (Latest Code Status on File) Date Activated Date Inactivated Comments 06/13/2022 12:41 AM 06/18/2022 7:55 PM Question Answer Comments Patient has decision-making capacity? Yes Care Teams Pest Control Worker Helper Relationship Specialty Start Date End Date Junior Alas MD [address] [place] [address] PCP - General 10/07/20
--- OUTSIDE RECORDS SUMMARY | 2025-03-17 09:00 | XMS_ITS | Clinical Summary ---
Author Organization [place] Address [address] [place] [address] Phone Care Team Providers Care Instructional Systems Designer Name Role Phone Unavailable Primary Care Provider [...] Medical History Medical History Date Comments Asthma [place] (myocardial infarction) (HCC) CAD (coronary artery disease) [...] Orientation Not on file Plan of Treatment Health Maintenance Due Date Last Done Comments Wellness Exam Medicare 1961 Hepatitis C Screening 01/28/1976 DTaP/TDaP/Td (1 - Tdap) 1977 Pneumococcal Vaccine 50+ (1 of 2 - PCV) 1977 Cologuard 2003 Colon Cancer Screening 2003 Colonoscopy 2003 FIT 2003 Sigmoidoscopy 2003 Virtual Colonography 2003 Zoster (1 of 2) 01/28/2008 AAA Screening 2023 COVID-19 Vaccine (1 - 2024-2 6 season) 2025 Influenza Vaccine (#1) 2025 Hepatitis B Vaccine Aged Out No longe r eligible based on patient's age to complete this topic Meningococcal B Vaccine Aged Out No l onger eligible based on patient's age to complete this topic Insurance MEDICAID [place] [facility]
[2025-03-17 09:17] LABS: C-Reactive Protein 139.5 mg/L (0-4)
== END 2025-03-17 23:59 | disposition home or self-care (01) ==
PROVIDERS: PCP Nurse Practitioner Family; Visit Provider Nurse Practitioner Family
DX: R70.0 Elevated erythrocyte sedimentation rate (principal); R79.82 Elevated C-reactive protein (CRP); Z13.228 Encounter for screening for other metabolic disorders
CPT/HCPCS: 36415; 85025; 85651; 86140

== ENCOUNTER 2025-04-07 08:14 | Outpatient (CLI) | payer MEDICARE, MEDICAID, SELFPAY ==
[2025-04-07 08:31] LABS: Hematocrit 32.4 % (42.0-52.0); Hemoglobin 11.0 g/dL (14.1-18.0); Immature Granulocytes % 0.3 %; Mean Corpuscular HGB Conc 34.0 g/dL (31.8-35.4); Mean Corpuscular Hemoglobin 31.6 pg (27.0-31.2); Mean Corpuscular Volume 93.1 fl (80-94); Nucleated Red Blood Cells % 0 %; Platelet Count 225 K/mm3 (142-424); Red Blood Count 3.48 M/mm3 (4.60-6.20); Red Cell Distribution Width-SD 45.4 fL; White Blood Count 7.4 K/mm3 (4.8-10.8)
[2025-04-07 08:59] LABS: Alanine Aminotransferase 26 U/L (12-78); Albumin Level 4.2 g/dl (3.5-5.0); Albumin/Globulin Ratio 1.1 (1.1-1.8); Alkaline Phosphatase 97 U/L (38-126); Anion Gap 14.3 mEq/L (5-15); Aspartate Amino Transferase 34 U/L (17-59); Bilirubin,Total 0.7 mg/dl (0.2-1.3); Blood Urea Nitrogen 10 mg/dl (9-20); Calcium 9.6 mg/dl (8.4-10.2); Carbon Dioxide 25 mmol/L (22.0-30.0); Chloride 100 mmol/L (98-107); Creatinine,Serum 0.90 mg/dl (0.66-1.25); Estimated Glomerular Filt Rate 84 ml/min (>60); GFR (African American) 102 ML/MIN (>60); Globulin 3.7 g/dL (1.3-3.2); Glucose 115 mg/dl (74-100); Potassium 4.3 mmoL/L (3.5-5.1); Sodium 135 mmol/L (136-145); Total Protein,Serum 7.9 g/dl (6.3-8.2)
[2025-04-07 11:39] LABS: Hemoglobin A1C 5.9 % (4.0-6.0)
== END 2025-04-07 23:59 | disposition home or self-care (01) ==
LOC: LAB.DROPOF 08:15
PROVIDERS: PCP Nurse Practitioner Family; Visit Provider Nurse Practitioner Family
DX: R79.89 Other specified abnormal findings of blood chemistry (principal); E11.9 Type 2 diabetes mellitus without complications; Z13.0 Encounter for screening for diseases of the blood and blood-forming organs and certain disorders involving the immune mechanism
CPT/HCPCS: 80053; 83036; 85025

== ENCOUNTER 2025-04-08 11:57 | Outpatient (CLI) | payer MEDICARE, MEDICAID, SELFPAY ==
--- OUTSIDE RECORDS SUMMARY | 2025-04-08 12:00 | XMS_ITS | Clinical Summary ---
Author Organization [facility] Address [address] [place] [address] Phone Care Team Providers Care Meat Trimmer Name Role Phone Unavailable Primary Care Provider [...] Medical History Medical History Date Comments Asthma [place] (myocardial infarction) (HCC) CAD (coronary artery disease) [...] age to complete this topic Insurance MEDICAID [place] [facility]
--- OUTSIDE RECORDS SUMMARY | 2025-04-08 12:00 | XMS_ITS | Clinical Summary ---
Author Organization [facility] Address [address] [facility] [address] [place] [address] Phone Care Team Providers Care Dance Entertainer Name Role Phone Zachary LINARES, Junior Rhodes [phone] [ ] Conditions or Problems Problem Name Problem Code Onset Date Status Entry Date Provider Comment Standard Description Annotate MSSA A49.01 (ICD-10-CM ) 11/17 Active 11/17 Nancy Conde Methicillin susceptible Staphylococcus aureus infection, unspecified site Lactic acidosis 67574031 (SNOMED CT) 11/17 Active 11/17 Nancy Conde Lactic acidosis Hypertension 45565405 (SNOMED CT) 11/17 Active 11/17 Nancy Conde Hypertensive disorder GERD 373964028 (SNOMED CT) 11/17 Active 11/17 Nancy Conde Gastroesophageal reflux disease Cellulitis, foot, left 552309823 (SNOMED CT) 11/17 Active 11/17 Nancy Conde Cellulitis of foot Osteomyelitis , acute, ankle/foot 565401603 (SNOMED CT) 11/17 Active 11/17 Nancy Conde Acute osteomyelitis of ankle and/or foot Other bone involvement in diseases classified elsewhere 77430662 (SNOMED CT) 11/17 Active 11/17 Nancy Conde Disorder of bone Diabetic foot ulcer 225053612 (SNOMED CT) 11/17 Active 11/17 Nancy Conde Diabetic foot ulcer Medications Medication Instructions Start Date Stop Date Generic Name [facility] Provider KEFLEX 500 MG ORAL CAPSULE CEPHALEXIN 69370721779 Zafar P LORTAB 7.5-325 MG ORAL TABLET HYDROCODONE-ACET A MINOPHEN 68660648238 Zafar P PX ENTERIC ASPIRIN 81 MG ORAL TABLET DELAYED RELEASE ASPIRIN 81820329010 Zafar P CULTURELLE CAPS LACTOBACI LLUS RHAMNOSUS (GG) 95739489941 Zafar P SIMVASTATIN 40 MG TABS SIMVASTATIN 61706187706 Zafar P RANITIDINE HCL 150 MG ORAL TABLET RANITIDINE HCL 14406633132 Zafar P NITROSTAT 0.4 MG SUBL NITROGLYCERIN 44991448639 Zafar P METOPROLOL SUCCINATE ER 50 MG [id number] METOPROLOL SUCCINATE 41275736696 Zafar P METFORMIN HCL 1000 MG TABS METFORMIN HCL 63405042328 Zafar P GLYBURIDE 2.5 MG TABS GLYBURIDE 74165718734 Zafar P CELEXA 20 MG TABS CITALOPRAM HYDROBROMIDE 12409066890 Zafar P Medications Administered No information available. [...]
--- OUTSIDE RECORDS SUMMARY | 2025-04-08 12:00 | XMS_ITS | Clinical Summary ---
Author Organization Healthcare Address [address] [place] [address] Care Team Providers Care Asbestos Siding Mechanic Name Role Phone Junior Alas MD Primary Care Provider + [phone] Allergies Active Allergy Reactions Criticality Noted Date [...] without coma 07/27/2022 Overview (07/31/2022): NSGY consulted [facility] reviewed; appears meningioma present can [...] complicate mobility Coronary artery disease invo lving [place] coronary artery of [place] heart without angina pectoris 06/13/2022 Overview (07/31/2022): [...] drink first t kaykay in the morning (EYE-CAR ESCORT) to steady your nerves or to get [...] A1C 12/11/2022, 05/14/2016, 01/11/2016, Additional history exists [id number] Vaccine (2024- season) 2025 03/27/2021, 06/25/2020, 06/04/2020 [...] BLOOD ORDERABLES Final Result Performing Organization Address City/State/[facility] Co de Phone Number [facility] [address] [place] [address] * (ABNORMAL) Hemoglobin A1c (06/13/2022 5:18 AM EST) Hemoglobin A1c 6.2(H) <5.7 % 06/13/2022 10:13 AM EST [facility] Blood Venous blood specimen / Unknown [...] Adults <6.0% Children and Adolescents <7.5% Source: [place] Diabetes Association. Standards of medical care in diabetes,2017. Diabetes Care.2017:40 (suppl 1):S1-S135. HbA1c assay performed by an ion-exchange chromatography method that is certified traceable to the DCCT. Blanca Murdock JOURNEYMAN PLUMBER LAB BLOOD ORDERABLES Final Result [facility] [address] [place] [address] from Last 3 Months or Most Recently Relevant to Health Maintenance Insurance MEDICARE Advance Directives * Full Code (Latest Code Status on File) Date Activated Date Inactivated Comments 06/13/2022 12:41 AM 06/18/2022 7:55 PM Question Answer Comments Patient has decision-making capacity? Yes Care Teams Asbestos Siding Mechanic Relationship Specialty Start Date End Date Junior Alas MD [address] [place] [address] PCP - General 10/07/20
[2025-04-08 12:56] LABS: C-Reactive Protein 5.6 mg/L (0-4)
== END 2025-04-08 23:59 | disposition home or self-care (01) ==
LOC: LAB.DROPOF 11:58
PROVIDERS: PCP Nurse Practitioner Family; Visit Provider Family Medicine
DX: E86.1 Hypovolemia (principal)
CPT/HCPCS: 86140

== ENCOUNTER 2025-04-09 07:47 | Outpatient (CLI) | payer MEDICARE, MEDICAID, SELFPAY ==
--- OUTSIDE RECORDS SUMMARY | 2025-04-09 07:49 | XMS_ITS | Clinical Summary ---
Author Organization Healthcare Address [address] [place] [address] Care Team Providers Care Import/Export Specialist Name Role Phone Junior Alas MD Primary Care Provider + [phone] Allergies Active Allergy Reactions Criticality Noted Date [...] without coma 07/27/2022 Overview (07/31/2022): NSGY consulted [facility] reviewed; appears meningioma present can follow [...] complicate mobility Coronary artery disease invo lving [place] coronary artery of [place] heart without angina pectoris 06/13/2022 Overview (07/31/2022): [...] drink first t kaykay in the morning (EYE-AUTOMATIC DOOR MECHANIC) to steady your nerves or to [...] A1C 12/11/2022, 05/14/2016, 01/11/2016, Additional history exists [id number] Vaccine (2024- season) 2025 03/27/2021, 06/25/2020, 06/04/2020 [...] BLOOD ORDERABLES Final Result Performing Organization Address City/State/[facility] Co de Phone Number [facility] [address] [place] [address] * (ABNORMAL) Hemoglobin A1c (06/13/2022 5:18 AM EST) Hemoglobin A1c 6.2(H) <5.7 % 06/13/2022 10:13 AM EST [facility] Blood Venous blood specimen / Unknown [...] Adults <6.0% Children and Adolescents <7.5% Source: [place] Diabetes Association. Standards of medical care in diabetes,2017. Diabetes Care.2017:40 (suppl 1):S1-S135. HbA1c assay performed by an ion-exchange chromatography method that is certified traceable to the DCCT. Blanca Murdock FIELD HANDYMAN LAB BLOOD ORDERABLES Final Result [facility] [address] [place] [address] from Last 3 Months or Most Recently Relevant to Health Maintenance Insurance MEDICARE Advance Directives * Full Code (Latest Code Status on File) Date Activated Date Inactivated Comments 06/13/2022 12:41 AM 06/18/2022 7:55 PM Question Answer Comments Patient has decision-making capacity? Yes Care Teams Import/Export Specialist Relationship Specialty Start Date End Date Junior Alas MD [address] [place] [address] PCP - General 10/07/20
--- OUTSIDE RECORDS SUMMARY | 2025-04-09 07:49 | XMS_ITS | Clinical Summary ---
Author Organization [facility] Address [address] [facility] [address] [place] [address] Phone Care Team Providers Care Bottom Stainer Name Role Phone Zachary LINARES, Junior Rhodes [ ] Conditions or Problems Problem Name Problem Code Onset Date Status Entry Date Provider Comment Standard Description Annotate MSSA A49.01 (ICD-10-CM ) 11/17 Active 11/17 Nancy Conde Methicillin susceptible Staphylococcus aureus infection, unspecified site Lactic acidosis 67597190 (SNOMED CT) 11/17 Active 11/17 Nancy Conde Lactic acidosis Hypertension 66525250 (SNOMED CT) 11/17 Active 11/17 Nancy Conde Hypertensive disorder GERD 227748774 (SNOMED CT) 11/17 Active 11/17 Nancy Conde Gastroesophageal reflux disease Cellulitis, foot, left 392931666 (SNOMED CT) 11/17 Active 11/17 Nancy Conde Cellulitis of foot Osteomyelitis , acute, ankle/foot 689776619 (SNOMED CT) 11/17 Active 11/17 Nancy Conde Acute osteomyelitis of ankle and/or foot Other bone involvement in diseases classified elsewhere 09280756 (SNOMED CT) 11/17 Active 11/17 Nancy Conde Disorder of bone Diabetic foot ulcer 979146427 (SNOMED CT) 11/17 Active 11/17 Nancy Conde Diabetic foot ulcer Medications Medication Instructions Start Date Stop Date Generic Name [facility] Provider KEFLEX 500 MG ORAL CAPSULE CEPHALEXIN 88362519713 Zafar P LORTAB 7.5-325 MG ORAL TABLET HYDROCODONE-ACET A MINOPHEN 09858058529 Zafar P PX ENTERIC ASPIRIN 81 MG ORAL TABLET DELAYED RELEASE ASPIRIN 29740925500 Zafar P CULTURELLE CAPS LACTOBACI LLUS RHAMNOSUS (GG) 53525572868 Zafar P SIMVASTATIN 40 MG TABS SIMVASTATIN 10568181564 Zafar P RANITIDINE HCL 150 MG ORAL TABLET RANITIDINE HCL 85387276113 Zafar P NITROSTAT 0.4 MG SUBL NITROGLYCERIN 92111805200 Zafar P METOPROLOL SUCCINATE ER 50 MG [id number]-[id number] METOPROLOL SUCCINATE 84803190538 Zafar P METFORMIN HCL 1000 MG TABS METFORMIN HCL 38859834453 Zafar P GLYBURIDE 2.5 MG TABS GLYBURIDE 68115380950 Zafar P CELEXA 20 MG TABS CITALOPRAM HYDROBROMIDE 35146929545 Zafar P Medications Administered No information available. [...]
--- OUTSIDE RECORDS SUMMARY | 2025-04-09 07:49 | XMS_ITS | Clinical Summary ---
Author Organization [place] [facility] Address [address] [place] [address] Phone Care Team Providers Care Fixed Income Portfolio Manager Name Role Phone Unavailable Primary Care [...] Medical History Medical History Date Comments Asthma [place] (myocardial infarction) (HCC) CAD (coronary artery disease) [...] age to complete this topic Insurance MEDICAID [place] [facility]
[2025-04-09 08:04] LABS: Hematocrit 31.6 % (42.0-52.0); Hemoglobin 10.7 g/dL (14.1-18.0); Immature Granulocytes % 0.3 %; Mean Corpuscular HGB Conc 33.9 g/dL (31.8-35.4); Mean Corpuscular Hemoglobin 31.6 pg (27.0-31.2); Mean Corpuscular Volume 93.2 fl (80-94); Nucleated Red Blood Cells % 0 %; Platelet Count 198 K/mm3 (142-424); Red Blood Count 3.39 M/mm3 (4.60-6.20); Red Cell Distribution Width-SD 45.0 fL; White Blood Count 7.5 K/mm3 (4.8-10.8)
[2025-04-09 08:44] LABS: Alanine Aminotransferase 24 U/L (12-78); Albumin Level 4.1 g/dl (3.5-5.0); Albumin/Globulin Ratio 1.1 (1.1-1.8); Alkaline Phosphatase 87 U/L (38-126); Anion Gap 13.4 mEq/L (5-15); Aspartate Amino Transferase 29 U/L (17-59); Bilirubin,Total 0.6 mg/dl (0.2-1.3); Blood Urea Nitrogen 9 mg/dl (9-20); Calcium 9.6 mg/dl (8.4-10.2); Carbon Dioxide 26 mmol/L (22.0-30.0); Chloride 100 mmol/L (98-107); Creatinine,Serum 0.90 mg/dl (0.66-1.25); Estimated Glomerular Filt Rate 84 ml/min (>60); GFR (African American) 102 ML/MIN (>60); Globulin 3.6 g/dL (1.3-3.2); Glucose 104 mg/dl (74-100); Potassium 4.4 mmoL/L (3.5-5.1); Sodium 135 mmol/L (136-145); Total Protein,Serum 7.7 g/dl (6.3-8.2)
== END 2025-04-09 23:59 | disposition home or self-care (01) ==
LOC: LAB.DROPOF 07:47
PROVIDERS: PCP Nurse Practitioner Family; Visit Provider Nurse Practitioner Family
DX: M86.9 Osteomyelitis, unspecified (principal)
CPT/HCPCS: 36415; 80053; 85025

== ENCOUNTER 2025-04-22 13:03 | Outpatient (CLI) | payer MEDICARE, MEDICAID, SELFPAY ==
--- OUTSIDE RECORDS SUMMARY | 2025-04-22 13:07 | XMS_ITS | Clinical Summary ---
Author Organization [place] Address [address] [place] [address] Phone Care Team Providers Care Milk Truck Driver Name Role Phone Unavailable Primary Care Provider [...] Medical History Medical History Date Comments Asthma [place] (myocardial infarction) (HCC) CAD (coronary artery disease) [...] age to complete this topic Insurance MEDICAID [place] [facility]
--- OUTSIDE RECORDS SUMMARY | 2025-04-22 13:07 | XMS_ITS | Clinical Summary ---
Author Organization [facility] Address [address] [facility] [address] [place] [address] Phone Care Team Providers Care Rd Project Manager Name Role Phone Zachary LINARES, Junior Rhodes [ ] Conditions or Problems Problem Name Problem Code Onset Date Status Entry Date Provider Comment Standard Description Annotate MSSA A49.01 (ICD-10-CM ) 11/17 Active 11/17 Nancy Conde Methicillin susceptible Staphylococcus aureus infection, unspecified site Lactic acidosis 56780146 (SNOMED CT) 11/17 Active 11/17 Nancy Conde Lactic acidosis Hypertension 54051951 (SNOMED CT) 11/17 Active 11/17 Nancy Conde Hypertensive disorder GERD 984915217 (SNOMED CT) 11/17 Active 11/17 Nancy Conde Gastroesophageal reflux disease Cellulitis, foot, left 427825367 (SNOMED CT) 11/17 Active 11/17 Nancy Conde Cellulitis of foot Osteomyelitis , acute, ankle/foot 989369411 (SNOMED CT) 11/17 Active 11/17 Nancy Conde Acute osteomyelitis of ankle and/or foot Other bone involvement in diseases classified elsewhere 15121611 (SNOMED CT) 11/17 Active 11/17 Nancy Conde Disorder of bone Diabetic foot ulcer 828647196 (SNOMED CT) 11/17 Active 11/17 Nancy Conde Diabetic foot ulcer Medications Medication Instructions Start Date Stop Date Generic Name [facility] Provider KEFLEX 500 MG ORAL CAPSULE CEPHALEXIN 22418984875 Zafar P LORTAB 7.5-325 MG ORAL TABLET HYDROCODONE-ACET A MINOPHEN 79102988786 Zafar P PX ENTERIC ASPIRIN 81 MG ORAL TABLET DELAYED RELEASE ASPIRIN 35328656093 Zafar P CULTURELLE CAPS LACTOBACI LLUS RHAMNOSUS (GG) 66412021051 Zafar P SIMVASTATIN 40 MG TABS SIMVASTATIN 95970844843 Zafar P RANITIDINE HCL 150 MG ORAL TABLET RANITIDINE HCL 70597608197 Zafar P NITROSTAT 0.4 MG SUBL NITROGLYCERIN 19852704128 Zafar P METOPROLOL SUCCINATE ER 50 MG [id number] METOPROLOL SUCCINATE 54828849859 Zafar P METFORMIN HCL 1000 MG TABS METFORMIN HCL 81260294605 Zafar P GLYBURIDE 2.5 MG TABS GLYBURIDE 60934596119 Zafar P CELEXA 20 MG TABS CITALOPRAM HYDROBROMIDE 50930860724 Zafar P Medications Administered No information available. [...]
--- OUTSIDE RECORDS SUMMARY | 2025-04-22 13:07 | XMS_ITS | Clinical Summary ---
Author Organization Healthcare Address [address] [place] [address] Care Team Providers Care Engineering Design Supervisor Name Role Phone Junior Alas MD Primary Care Provider + [phone] Allergies Active Allergy Reactions Criticality Noted Date [...] without coma 07/27/2022 Overview (07/31/2022): NSGY consulted [facility] reviewed; appears meningioma present can follow [...] complicate mobility Coronary artery disease invo lving [place] coronary artery of [place] heart without angina pectoris 06/13/2022 Overview (07/31/2022): [...] drink first t kaykay in the morning (EYE-SUPERVISOR AUDIT CLERKS) to steady your nerves or to get [...] A1C 12/11/2022, 05/14/2016, 01/11/2016, Additional history exists [id number] Vaccine (2024- season) 2025 03/27/2021, 06/25/2020, 06/04/2020 [...] BLOOD ORDERABLES Final Result Performing Organization Address City/State/[facility] Co de Phone Number [facility] [address] [place] [address] * (ABNORMAL) Hemoglobin A1c (06/13/2022 5:18 AM EST) Hemoglobin A1c 6.2(H) <5.7 % 06/13/2022 10:13 AM EST [facility] Blood Venous blood specimen / Unknown [...] Adults <6.0% Children and Adolescents <7.5% Source: [place] Diabetes Association. Standards of medical care in diabetes,2017. Diabetes Care.2017:40 (suppl 1):S1-S135. HbA1c assay performed by an ion-exchange chromatography method that is certified traceable to the DCCT. Blanca Murdock PAIRER ODDS LAB BLOOD ORDERABLES Final Result [facility] [address] [place] [address] from Last 3 Months or Most Recently Relevant to Health Maintenance Insurance MEDICARE Advance Directives * Full Code (Latest Code Status on File) Date Activated Date Inactivated Comments 06/13/2022 12:41 AM 06/18/2022 7:55 PM Question Answer Comments Patient has decision-making capacity? Yes Care Teams Engineering Design Supervisor Relationship Specialty Start Date End Date Junior Alas MD [address] [place] [address] PCP - General 10/07/20
[2025-04-22 13:25] LABS: Hematocrit 30.9 % (42.0-52.0); Hemoglobin 10.5 g/dL (14.1-18.0); Immature Granulocytes % 0.4 %; Mean Corpuscular HGB Conc 34.0 g/dL (31.8-35.4); Mean Corpuscular Hemoglobin 31.4 pg (27.0-31.2); Mean Corpuscular Volume 92.5 fl (80-94); Nucleated Red Blood Cells % 0 %; Platelet Count 154 K/mm3 (142-424); Red Blood Count 3.34 M/mm3 (4.60-6.20); Red Cell Distribution Width-SD 47.1 fL; White Blood Count 15.2 K/mm3 (4.8-10.8)
[2025-04-22 13:53] LABS: Alanine Aminotransferase 26 U/L (12-78); Albumin Level 4.1 g/dl (3.5-5.0); Albumin/Globulin Ratio 1.1 (1.1-1.8); Alkaline Phosphatase 90 U/L (38-126); Anion Gap 15.2 mEq/L (5-15); Aspartate Amino Transferase 53 U/L (17-59); Bilirubin,Total 0.4 mg/dl (0.2-1.3); Blood Urea Nitrogen 12 mg/dl (9-20); Calcium 9.0 mg/dl (8.4-10.2); Carbon Dioxide 23 mmol/L (22.0-30.0); Chloride 98 mmol/L (98-107); Creatine Kinase 844 U/L (55-170); Creatinine,Serum 0.80 mg/dl (0.66-1.25); Estimated Glomerular Filt Rate 96 ml/min (>60); GFR (African American) 117 ML/MIN (>60); Globulin 3.6 g/dL (1.3-3.2); Glucose 114 mg/dl (74-100); Potassium 4.2 mmoL/L (3.5-5.1); Sodium 132 mmol/L (136-145); Total Protein,Serum 7.7 g/dl (6.3-8.2)
== END 2025-04-22 23:59 | disposition home or self-care (01) ==
LOC: LAB.DROPOF 13:04
PROVIDERS: PCP Nurse Practitioner Family; Visit Provider Family Medicine
DX: M86.9 Osteomyelitis, unspecified (principal)
CPT/HCPCS: 80053; 82550; 85025

== ENCOUNTER 2025-05-20 11:14 | Outpatient (CLI) | payer MEDICARE, MEDICAID, SELFPAY ==
--- OUTSIDE RECORDS SUMMARY | 2025-05-20 11:18 | XMS_ITS | Clinical Summary ---
Author Organization [facility] Address [address] [place] [address] Care Team Providers Care Carpenter Assistant Installer Name Role Phone Junior Alas MD Primary Care Provider + [phone] Allergies Active Allergy Reactions Criticality Noted Date [...] without coma 07/27/2022 Overview (07/31/2022): NSGY consulted [facility] reviewed; appears meningioma present [...] complicate mobility Coronary artery disease invo lving [place] coronary artery of [place] heart without angina pectoris 06/13/2022 Overview (07/31/2022): [...] drink first t kaykay in the morning (EYE-ORE TESTER) to steady your nerves or to get [...] Vaccine: 60+ Years or (1 - Risk 50-74 years 1-dose series) 01/28/2008 [facility]-Zoster Vaccines (1 of 2) 01/28/2008 [facility]-Diabetes: Hemoglobin A1C 12/11/2022, 05/14/2016, 01/11/2016, Additional history exists [id number] Vaccine (2024- season) 2025 03/27/2021, 06/25/2020, 06/04/2020 [facility]-Influenza Vaccine (#1) 2025 03/28/2020 [facility]-Hepatitis A Vaccines Aged Out 04/11/2018 No longer eligible based on patient's age to complete this topic [facility]-Hepatitis C Screening Completed 07/27/2022 HPV Vaccines (No Doses Required) Completed [facility]-HIB Vaccines Aged Out No longer e [...] Co de Phone Number [facility] [address] [place] [address] * (ABNORMAL) Hemoglobin A1c (06/13/2022 5:18 AM EST) Hemoglobin A1c 6.2(H) <5.7 % 06/13/2022 10:13 AM EST [facility] Blood Venous blood specimen / Unknown [...] Adults <6.0% Children and Adolescents <7.5% Source: [place] Diabetes Association. Standards of medical care in diabetes,2017. Diabetes Care.2017:40 (suppl 1):S1-S135. HbA1c assay performed by an ion-exchange chromatography method that is certified traceable to the DCCT. Blanca Murdock CABLE PULLER LAB BLOOD ORDERABLES Final Result [facility] [address] [place] [address] from Last 3 Months or Most Recently Relevant to Health Maintenance Insurance MEDICARE Member Subscriber Plan / Payer (Ef fective 2005-Present) Name:Mayo Jain Member ID:[id number] Relation to Subscriber:Self Name:Mayo Jain Subscriber ID:[id number] Payer ID:MEDICARE Group ID:Not on file Type:Medicare Address: [place] [phone] Advance Directives * Full Code (Latest Code Status on File) Date Activated Date Inactivated Comments 06/13/2022 12:41 AM 06/18/2022 7:55 PM Question Answer Comments Patient has decision-making capacity? Yes Care Teams Carpenter Assistant Installer Relationship Specialty Start Date End Date Junior Alas MD [address] [place] [address] PCP - General 10/07/20
--- OUTSIDE RECORDS SUMMARY | 2025-05-20 11:18 | XMS_ITS | Clinical Summary ---
Author Organization [facility] Address [address] [facility] [address] [place] [address] Phone Care Team Providers Care Medicaid Eligibility Specialist Name Role Phone Zachary LNIARES, Junior Rhodes [ ] Conditions or Problems Problem Name Problem Code Onset Date Status Entry Date Provider Comment Standard Description Annotate MSSA A49.01 (ICD-10-CM ) 11/17 Active 11/17 Nancy Conde Methicillin susceptible Staphylococcus aureus infection, unspecified site Lactic acidosis 92013558 (SNOMED CT) 11/17 Active 11/17 Nancy Conde Lactic acidosis Hypertension 82903753 (SNOMED CT) 11/17 Active 11/17 Nancy Conde Hypertensive disorder GERD 134525878 (SNOMED CT) 11/17 Active 11/17 Nancy Conde Gastroesophageal reflux disease Cellulitis, foot, left 632851810 (SNOMED CT) 11/17 Active 11/17 Nancy Conde Cellulitis of foot Osteomyelitis , acute, ankle/foot 430204396 (SNOMED CT) 11/17 Active 11/17 Nancy Conde Acute osteomyelitis of ankle and/or foot Other bone involvement in diseases classified elsewhere 45759013 (SNOMED CT) 11/17 Active 11/17 Nancy Conde Disorder of bone Diabetic foot ulcer 458808704 (SNOMED CT) 11/17 Active 11/17 Nancy Conde Diabetic foot ulcer Medications Medication Instructions Start Date Stop Date Generic Name [facility] Provider KEFLEX 500 MG ORAL CAPSULE CEPHALEXIN 85561481700 Zafar P LORTAB 7.5-325 MG ORAL TABLET HYDROCODONE-ACET A MINOPHEN 26589911040 Zafar P PX ENTERIC ASPIRIN 81 MG ORAL TABLET DELAYED RELEASE ASPIRIN 25995874622 Zafar P CULTURELLE CAPS LACTOBACI LLUS RHAMNOSUS (GG) 76311289166 Zafar P SIMVASTATIN 40 MG TABS SIMVASTATIN 22075928635 Zafar P RANITIDINE HCL 150 MG ORAL TABLET RANITIDINE HCL 48032191911 Zafar P NITROSTAT 0.4 MG SUBL NITROGLYCERIN 13635605180 Zafar P METOPROLOL SUCCINATE ER 50 MG FD25P-AUR METOPROLOL SUCCINATE 10855069820 Zafar P METFORMIN HCL 1000 MG TABS METFORMIN HCL 58518273833 Zafar P GLYBURIDE 2.5 MG TABS GLYBURIDE 03971067660 Zafar P CELEXA 20 MG TABS CITALOPRAM HYDROBROMIDE 66283347285 Zafar P Medications Administered No information available. [...]
--- OUTSIDE RECORDS SUMMARY | 2025-05-20 11:19 | XMS_ITS | Clinical Summary ---
Author Organization [facility] Address [address] [place] [address] Phone Care Team Providers Care Geology Associate Name Role Phone Unavailable Primary Care Provider [...] Medical History Medical History Date Comments Asthma [place] (myocardial infarction) (HCC) CAD (coronary artery disease) [...]
[2025-05-20 11:32] LABS: Hematocrit 31.8 % (42.0-52.0); Hemoglobin 10.9 g/dL (14.1-18.0); Immature Granulocytes % 0.6 %; Mean Corpuscular HGB Conc 34.3 g/dL (31.8-35.4); Mean Corpuscular Hemoglobin 31.3 pg (27.0-31.2); Mean Corpuscular Volume 91.4 fl (80-94); Nucleated Red Blood Cells % 0 %; Platelet Count 122 K/mm3 (142-424); Red Blood Count 3.48 M/mm3 (4.60-6.20); Red Cell Distribution Width-SD 47.1 fL; White Blood Count 6.4 K/mm3 (4.8-10.8)
[2025-05-20 11:47] LABS: Alanine Aminotransferase 21 U/L (12-78); Albumin Level 4.2 g/dl (3.5-5.0); Albumin/Globulin Ratio 1.3 (1.1-1.8); Alkaline Phosphatase 84 U/L (38-126); Aspartate Amino Transferase 27 U/L (17-59); Bilirubin,Total 0.5 mg/dl (0.2-1.3); Blood Urea Nitrogen 16 mg/dl (9-20); Calcium 9.1 mg/dl (8.4-10.2); Carbon Dioxide 25 mmol/L (22.0-30.0); Chloride 99 mmol/L (98-107); Creatine Kinase 23 U/L (55-170); Creatinine,Serum 0.90 mg/dl (0.66-1.25); Estimated Glomerular Filt Rate 84 ml/min (>60); GFR (African American) 102 ML/MIN (>60); Globulin 3.2 g/dL (1.3-3.2); Glucose 134 mg/dl (74-100); Potassium 4.3 mmoL/L (3.5-5.1); Total Protein,Serum 7.4 g/dl (6.3-8.2)
[2025-05-20 11:49] LABS: Anion Gap 14.3 mEq/L (5-15); Sodium 134 mmol/L (136-145)
[2025-05-20 11:52] LABS: C-Reactive Protein 2.0 mg/L (0-4)
== END 2025-05-20 23:59 | disposition home or self-care (01) ==
LOC: LAB.DROPOF 11:16
PROVIDERS: PCP Family Medicine; Visit Provider Family Medicine
DX: R79.82 Elevated C-reactive protein (CRP) (principal); Z00.00 Encounter for general adult medical examination without abnormal findings; R74.8 Abnormal levels of other serum enzymes
CPT/HCPCS: 80053; 82550; 85025; 86140